=== PATIENT | female | born 1960 | race African-American/Black ===

== ENCOUNTER 2019-10-19 17:17 | Emergency (ER) | payer MEDICARE, OTHER, SELFPAY ==
[2019-10-19] VITALS (9 sets, daily range): BP systolic 115–138; BP diastolic 65–73; PULSE 77–87; RESP 16–25; TEMP 36.2; O2SAT 94–100
--- NOTE | ~2019-10-19 | CT_ITS ---
EXAMINATION: CTA chest PE protocol DATE: 10/19/2019 19:39 INDICATION: Shortness of breath. Chest pain, generalized. Cough. TECHNIQUE: Computed tomography angiography (CTA) of the chest was performed with 100 mL Omnipaque-350 intravenous contrast timed to evaluate the pulmonary arteries. Coronal maximum intensity projection 3D-reconstructions were created by the technologist. Automated exposure control and iterative reconst ruction technique were employed. Exam dose: 876.71 mGy-cm total exam DLP. COMPARISON: 10/19/2019 portable AP chest FINDINGS: There is diagnostic contrast enhancement of the pulmonary arteries and no evidence of pulmo nary embolism. There are calcified left hilar and subcarinal lymph nodes as well as calcified left lower lobe pulmon carlos granuloma, in addition to calcified hepatic and splenic granulomas, consistent with old granuloma tous disease. No hilar or mediastinal mass lesion or lymphadenopathy. No thoracic aortic aneurysm or dissection. There is dependent atelectasis in both lower lobes. No pulmonary consolidation or suspicious pulmonar y mass lesion is evident. Status post cholecystectomy. Diverticulosis of the colon. Degenerative disease is noted in the lower cervical spine. No suspicious osteolytic or osteoblastic l esions are noted. IMPRESSION: No evidence of pulmonary embolism Old granulomatous disease Status post cholecystectomy Diverticulosis of the colon Reviewed, dictated and finalized at [facility]. Reviewed, dictated and finalized at location [facility].
--- NOTE | ~2019-10-19 | XR_ITS ---
XR chest 1V portable DATE: 10/19/2019 18:07 INDICATION: Diffuse chest pain. Cough, shortness of breath. Weakness. TECHNIQUE: Portable AP chest on 10/19/2019 at 1757 hours COMPARISON: 01/31/2017 two-view chest FINDINGS: Normal heart size. No hilar or mediastinal enlargement. No pulmonary infiltrate or consolid ation, pleural effusion or pulmonary vascular congestion or pneumothorax is detected. Included skelet al structures are unremarkable other than osteopenia. IMPRESSION: No active cardiopulmonary disease Reviewed, dictated and finalized at location [facility].
--- NOTE | 2019-10-19 17:34 | ECG_ITS ---
Measurements Intervals [place] Rate: 82 P: 32 DE: 149 QRS: -12 QRSD: 89 T: -2 QT: 371 QTc: 434 Interpretive Statements SINUS RHYTHM DELAYED PRECORDIAL R/S TRANSITION INFERIOR INFARCT, AGE INDETERMINATE ABNORMAL ECG Electronically Signed On 10-19-2019 19:37:12 CDT by Miguel Gilman D.O.
--- NOTE | 2019-10-19 17:56 | ED.CHESTPAIN ---
HPI - Chest Pain General Chief Complaint: Shortness of Breath/Dyspnea Stated Complaint: back pain, sent by PMD Time Seen by Provider: 10/19/19 17:48 History of Present Illness HPI narrative: Sudden onset of left sided pleuritic chest pain at about 1430 today. The pain is sharp. No raiation. Worse with taking a deep breath and associated with mild SOB. It feels like pleurisy. She has a h/o PE and ws sent in by PMD to rule this out. No cough, congestion, fever. Related Data Home Medications Medication Instructions Recorded Confirmed albuterol sulfate INHALATION 10/19/19 albuterol sulfate INHALATION 10/19/19 collagenase clostridium histo. TOPICAL 10/19/19 [Santyl] folic acid 10/19/19 furosemide 10/19/19 hydrocodone-acetaminophen 10/19/19 isosorbide mononitrate mg PO 10/19/19 levothyroxine 10/19/19 metformin mg 10/19/19 methotrexate (PF) [Rasuvo (PF)] SUBCUT 10/19/19 potassium chloride [Klor-Con M20] meq PO 10/19/19 prednisone 10/19/19 rivaroxaban [Xarelto] mg 10/19/19 rosuvastatin mg 10/19/19 triamcinolone acetonide TOPICAL 10/19/19 umeclidinium-vilanterol [Anoro INHALATION 10/19/19 Ellipta] verapamil mg PO 10/19/19 Allergies Allergy/AdvReac Type Severity Reaction Status Date / Time levofloxacin Allergy Severe LIGAMENT Verified 11/14/14 17:43 DAMAGE, AND TENDON DAMAGE simvastatin Allergy Intermediate Other Verified 12/07/17 22:52 ciprofloxacin Allergy Mild Unknown Verified 10/19/19 17:55 Review of Systems Review of Systems: All systems reviewed & are unremarkable except as noted in HPI and below Constitutional: Constitutional: Denies chills and Denies fever(s) Cardiovascular: Cardiovascular: Reports chest pain and Denies radiating jaw, neck or arm pain Respiratory: Respiratory: Denies chest congestion, Denies cough and Reports dyspnea Gastrointestinal: Gastrointestinal: Denies nausea and Denies vomiting Neurologic: Denies numbness and Denies weakness [facility] Past Medical History Medical History (Updated 10/19/19 @ 22:17 by Mateo Sloan MD) Diabetes Pleurisy Pulmonary embolism Pulmonary hypertension Rheumatoid arteritis Exam Const: General: no acute distress and alert Nutritional Appearance: obese Orientation/consciousness: patient oriented x3 HENMT: Head: normal to inspection Chest: Chest palpation & inspection: tenderness rib (right) Resp: Effort & Inspection: normal respiratory effort Auscultation: clear to auscultation bilaterally Cardio: Rate: regular rate Rhythm: regular rhythm GI: Inspection: non-distended Skin: General skin exam: normal color Neuro: General: patient oriented x3, moves all extremities and CN's II-XI intact bilaterally Speech: normal speech Extrem: General: edema bilateral (trace) Course Vital Signs Vital signs: Vital Signs Temperature 36.2 C L 10/19/19 17:30 Pulse Rate 85 10/19/19 17:30 Respiratory Rate 16 10/19/19 17:30 Blood Pressure 126/70 10/19/19 17:30 Pulse Oximetry 100 10/19/19 17:30 Temperature 36.2 C L 10/19/19 17:30 Pulse Rate 77 10/19/19 21:45 Respiratory Rate 18 10/19/19 21:45 Blood Pressure 118/65 10/19/19 21:45 Pulse Oximetry 95 10/19/19 21:45 MDM - Chest Pain Differential Diagnosis Differential diagnosis: Likely other (PE, pleurisy, pneumonia) Medical Records Data Attestation: I reviewed the patient's medical records. Lab Data Attestation: I reviewed the patient's lab results. Result diagrams: 10/19/19 17:53 10/19/19 17:53 Labs: Lab Results 10/19/19 10/19/19 10/19/19 Range/Units 17:53 17:53 17:53 WBC 8.2 (4.5-10.0) K/mm3 RBC 4.41 (4.2-5.4) M/mm3 Hgb 12.7 (12.0-15.0) g/dL Hct 38.8 (37.0-47.0) % MCV 88.0 (80-100) fl MCH 28.8 (26-34) pg MCHC 32.7 (32-36) g/dl RDW 13.0 (11.5-14.5) % Plt Count 311 (150-375) k/mm3 MPV 9.6 (7.4-10.4) fl Immature Gran % (Auto) 0.
[2019-10-19 18:07] LABS: Basophils Absolute Auto 0.1 K/mm3 (0.0-0.1); Basophils Percent Auto 0.6 % (0.2-1.2); Eosinophils Absolute Auto 0.1 K/mm3 (0-0.3); Eosinophils Percent Auto 0.6 % (0-4.4); Hematocrit 38.8 % (37.0-47.0); Hemoglobin 12.7 g/dL (12.0-15.0); Immature Granulocyte Absolute 0.04 K/mm3 (0.00-0.031); Immature Granulocyte Percent A 0.5 % (0-0.5); Lymphocytes Absolute Auto 2.56 K/mm3 (0.9-3.2); Lymphocytes Percent Auto 31.1 % (18.3-44.2); Mean Corpuscular HGB Conc 32.7 g/dl (32-36); Mean Corpuscular Hemoglobin 28.8 pg (26-34); Mean Platelet Volume 9.6 fl (7.4-10.4); Monocytes Absolute Auto 0.7 K/mm3 (0.1-0.6); Monocytes Percent Auto 8.1 % (2.6-8.5); Neutrophils Absolute Auto 4.9 K/mm3 (1.3-6.7); Neutrophils Percent Auto 59.1 % (45.5-73.1); Platelet Count Result 311 k/mm3 (150-375); Red Blood Count 4.41 M/mm3 (4.2-5.4); White Blood Count 8.2 K/mm3 (4.5-10.0)
[2019-10-19 18:15] LABS: INR 1.9; Prothrombin Time 21.1 Seconds (11.1-14.7)
[2019-10-19 18:16] LABS: Partial Thromboplastin Time 32.3 SECONDS (22.3-36.8)
--- NOTE | 2019-10-19 18:21 | PC.NURSE ---
Called lab to add on Trop Baseline and BNP
[2019-10-19 18:29] LABS: Alanine Aminotransferase 39 U/L (4-35); Albumin Level 3.9 g/dL (3.5-5.1); Alkaline Phosphatase 88 U/L (38-126); Anion Gap 6 mmol/L (8-16); Aspartate Amino Transferase 32 U/L (14-36); Bilirubin,Total 0.5 mg/dL (0.2-1.3); Blood Urea Nitrogen 12 mg/dL (7-17); Calcium 9.2 mg/dL (8.4-10.2); Carbon Dioxide 26 mmol/L (22-30); Chloride 103 mmol/L (98-107); Estimated CRCL calculation 91 ml/min; Estimated Glomerular Filt Rate > 60; Glucose 135 mg/dL (65-105); Potassium 4.1 mmol/L (3.4-5.0); Sodium 135 mmol/L (137-145)
[2019-10-19] MEDS: traMADol HCL 50 MG TABLET PO (18:39)
[2019-10-19 18:41] LABS: Add Urine Microscopic? NO; Appearance Urine Clear (Clear); Bilirubin Urine Negative (Negative); Blood Urine Negative (Negative); Color Urine Yellow (Yellow); Glucose Urine UA Negative (Negative); Ketones Urine Negative (Negative); Leukocyte Esterase Ur Negative LEU/UL (Negative); Nitrate Urine Negative (Negative); Protein Urine Negative (Negative); Specific Grav Ur 1.013 (1.001-1.035); Urobilinogen Urine Negative mg/dL (<2.0)
[2019-10-19 18:56] LABS: NT Pro B Type Natriuretic Pept 23 PG/ML (5-100); Troponin I < 0.012 ng/mL (0.000-0.034)
--- NOTE | 2019-10-19 19:21 | PC.NURSE ---
report received at this time. pt resting on stretcher with family member at bedside. pt VS stable, remains hooked up to monitor. call light in reach-encouraged to use. will continue to monitor pt for baseline status changes.
--- NOTE | 2019-10-19 19:44 | PC.NURSE ---
Per Fabiola in CT, pt IV infiltrated at the end of the CT. ABHILASH Seaman made was aware.
--- NOTE | 2019-10-19 21:11 | PC.NURSE ---
d/c paperwork discussed with pt at this time. this RN and MD Sloan at bedside to discuss results, poc, and tx. pt's daughter at bedside, both verbalize understanding. pt states she would like Dr. Collins contacted prior to discharge. MD aware, Dr. Collins paged. discharge pending.
== END 2019-10-19 21:46 | disposition home or self-care (01) ==
PROVIDERS: Emergency Medicine; Emergency Provider Emergency Medicine
DX: R07.81 Pleurodynia (principal); E11.9 Type 2 diabetes mellitus without complications; Z86.711 Personal history of pulmonary embolism; I27.20 Pulmonary hypertension, unspecified; K57.90 Diverticulosis of intestine, part unspecified, without perforation or abscess without bleeding; R06.02 Shortness of breath; Z79.84 Long term (current) use of oral hypoglycemic drugs
CPT/HCPCS: 36415; 71045; 71275; 80053; 81003; 83880; 84484; 85025; 85610; 85730; 93005; 99284; A9270; Q9967

== ENCOUNTER 2024-01-24 18:18 | Emergency (ER) | payer MEDICARE, OTHER, SELFPAY ==
--- NOTE | ~2024-01-24 | XR_ITS ---
XR ankle LT min 3V DATE: 01/24/2024 18:57 INDICATION: Lower left ankle. Left ankle and foot pain. TECHNIQUE: 3 views COMPARISON: None FINDINGS: Diffuse osteopenia. No fracture or dislocation of the ankle or disruption of the ankle mortise. There is osteoarthritic change at the talonavicular and tarsal joints. Mild plantar calcaneal and slight posterior calcaneal enthesopathy. IMPRESSION: No fracture or dislocation of the ankle Osteopenia Osteoarthritic changes Mild plantar and posterior calcaneal enthesopathy Reviewed, dictated and finalized at location A. GORY DEVELOPMENT MANAGER
--- NOTE | ~2024-01-24 | XR_ITS ---
XR foot LT min 3V DATE: 01/24/2024 18:56 INDICATION: Injury this morning. Left ankle and foot pain TECHNIQUE: 4 views COMPARISON: None FINDINGS: Osteopenia. Mild plantar and slight posterior calcaneal enthesopathy. There is osteoarthritis including prominent osteoarthritic change at the talonavicular and calcaneocu boid joints. No fracture, dislocation, periosteal reaction or bone destruction is detected. IMPRESSION: No fracture or dislocation is detected Osteopenia Minimal plantar and posterior calcaneal enthesopathy Polyarticular osteoarthritis, particularly prominent at the talonavicular and calcaneocuboid joints Reviewed, dictated and finalized at location A. TER OPERATOR IMPRESSION: No fracture or dislocation is detected Osteopenia Minimal plantar and posterior calcaneal enthesopathy Polyarticular osteoarthritis, particularly prominent at the talonavicular and c alcaneocuboid joints
--- NOTE | 2024-01-24 18:24 | ED.LOWEXIN ---
HPI - Extremity Injury (Lower) General Chief Complaint: Extremity Injury, Lower Stated Complaint: Left Foot Pain Time Seen by Provider: 01/24/24 18:37 Source: patient, RN notes reviewed and old records reviewed Mode of arrival: ambulatory Limitations: no limitations History of Present Illness HPI Narrative: 63-year-old presents to the [facility] with complaints of left foot and ankle pain. Patient reports that she was walking at a store when she rolled her foot. Did not hit her head. No loss of consciousness. Pain to the generalized ankle as well as lateral foot No bruising or swelling noted at this time. Positive pedal pulses Related Data Home Medications Medication Instructions Recorded Confirmed albuterol sulfate 90 mcg/actuation inhalation 10/19/19 aerosol inhaler collagenase clostridium histo. 250 topical 10/19/19 unit/gram topical ointment (Santyl) folic acid 1 mg tablet 10/19/19 furosemide 40 mg tablet 10/19/19 hydrocodone 5 mg-acetaminophen 325 10/19/19 mg tablet isosorbide mononitrate 60 mg mg PO 10/19/19 tablet,extended release 24 hr levothyroxine 88 mcg tablet 10/19/19 metformin 500 mg tablet mg 10/19/19 methotrexate (PF) 7.5 mg/0.15 mL subcut 10/19/19 subcutaneous auto-injector (Rasuvo (PF)) potassium chloride 20 mEq meq PO 10/19/19 tablet,extended release(part/cryst) (Klor-Con M) rivaroxaban 20 mg tablet (Xarelto) mg 10/19/19 rosuvastatin 10 mg tablet mg 10/19/19 triamcinolone acetonide 0.1 % topical 10/19/19 topical ointment umeclidinium 62.5 mcg-vilanterol inhalation 10/19/19 25 mcg/actuation powdr for inhalation (Anoro Ellipta) verapamil 240 mg tablet,extended mg PO 10/19/19 release spironolactone 25 mg tablet mg 01/24/24 vibegron 75 mg tablet (Gemtesa) mg 01/24/24 Allergies Allergy/AdvReac Type Severity Reaction Status Date / Time levofloxacin Allergy Severe LIGAMENT Verified 01/24/24 18:23 DAMAGE, AND TENDON DAMAGE simvastatin Allergy Intermediate Other Verified 01/24/24 18:23 ciprofloxacin Allergy Mild Unknown Verified 01/24/24 18:23 Review of Systems Review of Systems: All systems reviewed & are unremarkable except as noted in HPI and below Constitutional: Constitutional: Reports no additional constitutional complaints ENT: Reports system reviewed and no additional complaints, except as documented Cardiovascular: Cardiovascular: Reports no additional cardiovascular complaints, Denies chest pain and Denies dyspnea Respiratory: Respiratory: Reports no additional respiratory complaints, Denies chest congestion, Denies cough and Denies dyspnea Gastrointestinal: Gastrointestinal: Reports no additional gastrointestinal complaints, Denies abdominal pain, Denies nausea and Denies vomiting Musculoskeletal: Musculoskeletal: Reports as per HPI and Reports arthralgias Integumentary/Breasts: Skin/Breast: Reports system reviewed and no additional complaints, except as docu [facility] Past Medical History Medical History Diabetes Pleurisy Pulmonary embolism Pulmonary hypertension Rheumatoid arteritis Comments At the time of my signature, I reviewed and agree with the nursing past medical, surgical, social, and family history. There is no relevant family history pertinent to the patient complaint. Exam Const: General: cooperative, healthy appearing, comfortable, no acute distress, well developed, alert and well nourished Nutritional Appearance: well nourished Orientation/consciousness: patient oriented x3 Limitations: no limitations HENMT: Head: normal to inspection Ears: hearing grossly normal bilaterally and external ears normal Face/Nose/Sinus: Normal external nose present, normal facial exam and face symmetric Face and sinus: normal facial exam and face symmetric Eyes: General: appearance normal, both eyes and all related structures Alignment and Position: alignment normal Periorbital: periorbital findings normal Neck: Neck: normal visual inspection, full ROM, no lymphadenopathy and no meningeal signs Chest: Chest palpation & inspection: normal inspection of the chest Resp: Effort & Inspection: normal respiratory effort and able to speak in complete sentences Cardio: Rate: regular rate Skin: General skin exam: normal color and no rashes or lesions noted Lesions: no lesions Rashes: no rashes Wounds: no wounds Neuro: General: patient oriented x3, tone normal, moves all extremities and no meningeal signs Cognition (Neuro): normal cognition Speech: normal speech Gait exam (Neuro): Other gait observations present (Limp favoring left leg) Extrem: General: normal to inspection, full ROM, capillary refill normal and normal gait Left lower extremity: ankle Details: tenderness (Generalized ankle); no swelling and foot Details: normal capillary refill, tenderness (Lateral foot) and vascular exam Details: dorsalis pedis pulse present Psych: Appearance: grossly normal and well kempt Mental Status: mental status grossly normal Speech and movement: Normal speech and movement present and Clear speech present Affect: normal affect Attitude: cooperative Course Course Level of Care: Express Care Visit Vital Signs Vital signs: Vital Signs Temperature 96 F L 01/24/24 18:31 Pulse Rate 109 H 01/24/24 18:31 Respiratory Rate 20 01/24/24 18:31 Blood Pressure 159/89 H 01/24/24 18:31 Pulse Oximetry 97 01/24/24 18:31 Oxygen Delivery Room Air 01/24/24 18:31 Temperature 96 F L 01/24/24 18:31 Pulse Rate 109 H 01/24/24 18:31 Respiratory Rate 20 01/24/24 18:31 Blood Pressure 159/89 H 01/24/24 18:31 Pulse Oximetry 97 01/24/24 18:31 Oxygen Delivery Room Air 01/24/24 18:31 Reviewed MDM - Extremity Injury (Lower) MDM Narrative Medical decision making narrative: Patient sitting comfortably in exam room. Nontoxic, vitals stable. Patient in no acute distress. Patient presents with left ankle and foot pain. X-rays are negative for fracture. Patient replied Patient appropriate for outpatient treatment and follow-up Discharge instructions reviewed with patient, as well as provided in writing per nursing staff. The instructions also include specific and strict return/GO TO THE ER as well as f/u information. All questions have been answered, and the patient deny any further questions with discharge and discharge plan. Some parts of this dictation were generated by voice recognition software and may contain typographical and/or grammatical inaccuracies. Differential Diagnosis Differential diagnosis: Likely ankle sprain and strain and ankle fracture Imaging Data Radiologist's impression: XR ankle LT min 3V DATE: 01/24/2024 18:57 INDICATION: Lower left ankle. Left ankle and foot pain. TECHNIQUE: 3 views COMPARISON: None FINDINGS: Diffuse osteopenia. No fracture or dislocation of the ankle or disruption of the ankle mortise. There is osteoarthritic change at the talonavicular and tarsal joints. Mild plantar calcaneal and slight posterior calcaneal enthesopathy. IMPRESSION: No fracture or dislocation of the ankle Osteopenia Osteoarthritic changes Mild plantar and posterior calcaneal enthesopathy XR foot LT min 3V DATE: 01/24/2024 18:56 INDICATION: Injury this morning. Left ankle and foot pain TECHNIQUE: 4 views COMPARISON: None FINDINGS: Osteopenia. Mild plantar and slight posterior calcaneal enthesopathy. There is osteoarthritis including prominent osteoarthritic change at the talonavicular and calcaneocuboid joints. No fracture, dislocation, periosteal reaction or bone destruction is detected. IMPRESSION: No fracture or dislocation is detected Osteopenia Minimal plantar and posterior calcaneal enthesopathy Polyarticular osteoarthritis, particularly prominent at the talonavicular and calcaneocuboid joints Critical Care Time Critical Care Time Critical Care Time: No Discharge Plan Discharge Clinical Impression: Ankle sprain and strain, Foot sprain, Polyarticular osteoarthritis Patient Disposition: Home, Self-Care Condition: Stable Instructions: Antibiotic Form, Ankle Sprain (ED), Foot Sprain (ED), Arthritis (ED) Additional Instructions: Your Xray did not show a fracture. Wear good supportive shoes at all times. Ice should be applied to help reduce swelling. It can be used for 20 to 30 minutes, every 2-3 hours while awake. Do not apply ice directly to your skin. ankle braces or gloria-wraps will help support your injured ankle. Take Tylenol 650mg every 6-8 hours as needed for pain. Do not take with hydrocodone Please schedule a follow-up visit with your personal physician for further evaluation and treatment within 2 weeks especially if symptoms persist. For new or worsening symptoms go directly to the emergency room Patient Language: Brazilian Prescriptions: No Action spironolactone 25 mg tablet Gemtesa 75 mg tablet furosemide 40 mg tablet metformin 500 mg tablet hydrocodone-acetaminophen 5-325 mg tablet isosorbide mononitrate 60 mg tablet extended release 24 hr PO levothyroxine 88 mcg tablet potassium chloride [Klor-Con M20] 20 mEq tablet,ER particles/crystals PO triamcinolone acetonide 0.1 % ointment TOPICAL verapamil 240 mg tablet extended release PO folic acid 1 mg tablet Santyl 250 unit/gram ointment TOPICAL albuterol sulfate 90 mcg/actuation HFA aerosol inhaler INHALATION rosuvastatin 10 mg tablet Xarelto 20 mg tablet Anoro Ellipta 62.5-25 mcg/actuation blister with device INHALATION Rasuvo (PF) 7.5 mg/0.15 mL auto-injector SUBCUT tramadol 50 mg tablet 50 mg PO Q4H PRN (Reason: pain) Qty: 15 0RF Follow-up/Referrals: [facility] [Non-Staff] - 1 Week ([facility] care follow up ) Time of Disposition: 19:14
[2024-01-24 18:31] VITALS: BP 159/89; PULSE 109; RESP 20; TEMP 35.5; O2SAT 97
== END 2024-01-24 19:26 | disposition home or self-care (01) ==
PROVIDERS: Emergency Provider Nurse Practitioner
DX: S93.402A Sprain of unspecified ligament of left ankle, initial encounter (principal); S96.912A Strain of unspecified muscle and tendon at ankle and foot level, left foot, initial encounter; X50.9XXA Other and unspecified overexertion or strenuous movements or postures, initial encounter; S93.602A Unspecified sprain of left foot, initial encounter; M19.072 Primary osteoarthritis, left ankle and foot; E11.9 Type 2 diabetes mellitus without complications; I27.20 Pulmonary hypertension, unspecified; Z86.711 Personal history of pulmonary embolism
CPT/HCPCS: 73610; 73630; 99213; G0463

== ENCOUNTER 2024-04-24 19:12 | Emergency (ER) | payer MEDICARE, OTHER, SELFPAY ==
--- NOTE | ~2024-04-24 | CT_ITS ---
EXAMINATION: CT abdomen pelvis w con DATE: 04/24/2024 20:51 INDICATION: LUQ pain x1.5 wk TECHNIQUE: Computed tomography (CT) of the abdomen and pelvis was performed with intravenous contrast . Automated exposure control and iterative reconstruction technique were employed. The dose-length pr oduct was 1391.71 mGy-cm. COMPARISON: None. FINDINGS: Lower thorax: Ill-defined groundglass nodules and foci in the left lower lung. Mild bibasilar scar/at electasis. Calcified left hilar lymph node. Liver: Diffuse fatty infiltration. Granulomatous calcifications. Biliary/Gallbladder: Gallbladder is absent. No bile duct dilation. Pancreas: Lobular contour abnormality projecting off the posterior aspect of the uncinate process steve suring 1.5 x 2.7 cm, with a punctate associated calcification. 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 Spleen: Granulomatous calcifications. Adrenals:No mass. Kidneys: No suspicious mass, obstructing stone, or hydronephrosis. Focal cortical scar in the superio r right kidney. GI tract: Distal esophageal and antral wall edema. No small or large bowel dilation. Normal appendix. Diverticulosis without diverticulitis. Mesentery/Peritoneum: No ascites, mass, or free air. Retroperitoneum: No mass. Pelvis: Distended urinary bladder with mild wall thickening. Left superolateral ureterocele. Calcifie d and noncalcified uterine fibroids. Normal bilateral ovaries. Soft Tissues: Small fat-containing uncomplicated umbilical hernia. Bones: No acute osseous finding. IMPRESSION: Ill-defined, subtle groundglass opacities in the lingula and left lower lobe, may reflect mild hypers ensitivity pneumonitis, respiratory bronchiolitis, or infectious airways disease. Esophagitis and antral gastritis. Hepatic steatosis. Contour abnormality with calcification along the uncinate process of the pancreas, may represent a pa ncreatic lesion, adjacent lymph node, or a lobule of normal pancreatic tissue. Recommend nonemergent but timely MRI of the abdomen without and with contrast for further evaluation. 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 Bladder wall thickening despite adequate distention, as can be seen with cystitis. Reviewed, dictated and finalized at location K. IMPRESSION: Ill-defined, subtle groundglass opacities in the lingula and left lower lobe, m ay reflect mild hypersensitivity pneumonitis, respiratory bronchiolitis, or inf ectious airways disease. Esophagitis and antral gastritis. Hepatic steatosis. Contour abnormality with calcification along the uncinate process of the pancre as, may represent a pancreatic lesion, adjacent lymph node, or a lobule of norm al pancreatic tissue. Recommend nonemergent but timely MRI of the abdomen witho ut and with contrast for further evaluation. 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 Bladder wall thickening despite adequate distention, as can be seen with cystit is.
--- NOTE | 2024-04-24 19:17 | ECG_ITS ---
Test Date: 2024-04-24 19:52:47 Measurements Intervals [place] Rate: 79 P: 41 NC: 161 QRS: -16 QRSD: 89 T: 8 QT: 392 QTc: 450 Interpretive Statements SINUS RHYTHM No previous ECG available for comparison Electronically Signed On 04-25-2024 11:25:00 CDT by Jagdeep Meadows M.D.
[2024-04-24 19:19] VITALS: BP 129/87; PULSE 85; RESP 18; O2SAT 98
[2024-04-24 19:20] VITALS: BP 129/87; PULSE 86; RESP 18; O2SAT 97
--- OUTSIDE RECORDS SUMMARY | 2024-04-24 19:38 | XMS_ITS | Encounter Summary ---
Author Organization [facility] Address [address] [place] [address] Care Team Providers Care Retail And Restaurant Associate Name Role Phone Marcos Banks MD Unavailable [phone] Chucky Menendez MD Unavailable Nathalie Guzman MD, Wade Lopes Unavailable [phone] Danielle Reina MD Unavailable [phone] Mercedes Collins MD Primary Care Provider [phone] Mercedes Collins MD Unavailable [phone] Carlota Hyman SLITTER AND CUTTER OPERATOR-ROAD CONDUCTOR Unavailable [phone] Mercedes Collins MD Unavailable Ladan Acosta RN Unavailable Ramsey Barbosa MD Unavailable Mercedes Collins MD Unavailable [phone] Stacey Michelle Unavailable Reason for Visit * Reason Onset Date Comments Pain Pelvic 12/17/2020 Encounter Details Date Type Department Care Team (Late st Contact Info) Description 12/17/2020 Telephone [facility] [address] [place] [address] Dominick Dodson MD [address] [place] [address] Pain Pelvic Social History Tobacco Use Types Packs/Day Years Used Date Smoking Tobacco: Former Smokeless Tobacco: Never Comments:Quit 30 years ago Alcohol Use Standard Drinks/Week Comments Not Currently 0 (1 standard drink = 0.6 oz pur e alcohol) Sex and Gender Information Value Date Recorded Sex Assigned at Not on file Gender Identity Not on file Sexual Orientation Not on file documented as of this encounter Functional Status Functional Status Response Date of Assess ment Is person deaf or have serious hearing difficult y? No 07/16/2020 Is person blind or have serious difficulty seein g? No 07/16/2020 Does person have serious dif ficulty walking/climbing stairs? No 07/16/2020 Does person have difficulty dressing/bathing? No 07/16/2020 Does person have difficulty doing errands alone? No 07/16/2020 Cognitive Status Response Date of Assessm ent Does person have difficulty concentrating/remembering/making decisions? No 07/16/2020 documented as of this encounter Miscellaneous Notes * Telephone Encounter - Zeferino Henry RN - 12/17/2020 2:55 PM CDT Has had pelvic pain since she left the office after last office visit. Having pelvic pain off and on, but Thursday pain elevated and became constant. Saw PCP doctor on Thursday, 12/15. Lab work done. UA w/ reflex to cx showed no cx indicated. PCP, Dr Collins called w/ elevated creatinine. Advised pt to call us. Advised: the best thing would be to come in and get assessed and evaluated. Can be seen tomorrow. She agrees to 345pm appt tomorrow at [facility]'s office. Directions given over the phone, but will send mychart msg. * Telephone Encounter - Radha Burden - 12/17/2020 2:37 PM CDT Patient called in- having severe pelvic pain- Thursday was unbearable- today is pretty bad 10/26 especially when voiding- Was given samples and wonders if this is the cause- Please call [phone] documented in this encounter Plan of Treatment Upcoming Encounters Date Type Department Care Team (Late st Contact Info) Description 06/07/2024 1:20 PM CDT Office Visit [facility] - Internal Medicine [address] [place] [address] Mercedes Collins MD [address] [place] [phone] 12/01/2024 11:45 AM CDT Office Visit [facility] - HOOF AND SHOE INSPECTOR [address] [place] [phone] Peterson Nance MD [address] [place] [address] documented as of this encounter Visit Diagnoses Not on filedocumented in this encounter Additional Health Concerns Infection Onset Date Last Indicated Resolved Time COVID-19 Under Investigation 01/21/2023 01/21/2023 01/21/2023 6:24 PM RETAIL 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 CONTROL CLERK documented as of this encounter Care Teams Retail And Restaurant Associate Relationship Specialty Start Date End Date Mercedes Collins MD [address] [place] [phone] PCP - General Internal Medicine 05/17/19 Mercedes Collins MD [address] [place] [phone] PCP - Attributed-MSSP 10/17/20 04/15/21 Carlota Hyman, SLITTER AND CUTTER OPERATOR-ROAD CONDUCTOR [address] [place] [address] [address] [place] [phone] PCP - Attributed-MSSP 04/16/21 06/15/21 [place] [address] [place] [address] [address] [place] [phone] PCP - Attributed-MSSP 06/16/21 08/11/23 Mercedes Collins MD [address] [place] [address] [address] [place] [phone] PCP - Attributed-Coventry MA 02/16/23 Marcos Banks MD [address] [facility] [address] [place], [place] [id number] Cardiology 09/29/13 10/28/22 Chucky Menendez MD [address] [place] [address] [address] [place] [address] Business Process Representative Pulmonary Disease 09/20/15 Wade Zelaya Jr., MD [address] [place] [address] [address] [place] [address] Rheumatology 12/01/16 Danielle Reina MD [address] [place] [address], [phone] Orthopedic Surgery 12/01/16 Ladan Acosta, ABHILASH Magnetic TesterMed Peds 07/23/22 08/14/22 Ramsey Barbosa MD [address] [facility] [address] [place] [address] Internal Medicine 10/29/22 Stacey Michelle [address] [id number] Care Coordination Specialist Care Management 09/29/23 11/13/23 documented as of this encounter
--- OUTSIDE RECORDS SUMMARY | 2024-04-24 19:38 | XMS_ITS | Encounter Summary ---
Author Organization [facility] Healthcare Address [address] [place] [address] Care Team Providers Care Glassware Finisher Name Role Phone Mercedes Collins MD Primary Care Provider + Andrzej Grimes OD Unavailable [phone] Ramsey Barbosa MD Unavailable [phone] Juana Leal RN Unavailable [phone] Encounter Details Date Type Department Care Team (Late st Contact Info) Description 04/20/2024 Orders Only [facility] [address] [facility] [address] [place] [phone] Caryn Ruiz, RN Social History Tobacco Use Types Packs/Day Years Used Date Smoking Tobacco: Former Smokeless Tobacco: Never Alcohol Use Standard Drinks/Week Comments No 0 (1 standard drink = 0.6 oz pur e alcohol) Hunger Vital Sign Answer Date Recorded Within the past 12 months, y ou worried that your food would run out before you got the money to buy more. Never true 04/14/19 25 Within the past 12 months, t he food you bought just didn't last and you didn't have money to get more. Never true 04/14/2024 Personal Safety Answer Date Recorded Have you ever been in or are you currently in a harmful physical or emotional relationship or is someone making you feel afraid or unsafe? 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 Gender Identity Not on file Sexual Orientation Not on file documented as of this encounter Plan of Treatment Not on file documented as of this encounter Visit Diagnoses Not on filedocumented in this encounter Care Teams Glassware Finisher Relationship Specialty Start Date End Date Mercedes Collins MD [address] [facility] [address] [place] [address] PCP - General 06/25/17 Andrzej Grimes, OD [address] [place] [address] Referring Physician Ophthalmology 04/18/20 Ramsey Barbosa MD [address] [place] [address] Draw Off Worker Transplant 05/30/21 Juana Leal, RN [address] [facility] [address] [place] [address] Heart Failure Coordinator Coremaker Pipe 05/30/21 documented as of this encounter
--- OUTSIDE RECORDS SUMMARY | 2024-04-24 19:38 | XMS_ITS | Clinical Summary ---
Author Organization [facility] Address [address] [place] [address] Care Team Providers Care Morning Nanny Name Role Phone Unavailable Primary Care Provider Unavailabl e Social History Tobacco Use Types Packs/Day Years Used Date Smoking Tobacco: Never Assessed Comments Unknown Sex and Gender Information Value Date Recorded Sex Assigned at Not on file Legal Sex Female 4:16 PM CDT Gender Identity Not on file Sexual Orientation Not on file Plan of Treatment Health Maintenance Due Date Last Done Comments Cervical Cancer Screening Pa p Smear (Age 30 to 64) Every 3 Years 1961 Colorectal Cancer Screening Colonoscopy (10 Years) 1961 Annual Physical 1964 Hepatitis C 09/15/1979 DTaP, Tdap and Td Vaccines ( 1 - Tdap) 1980 Cervical Cancer Screening Pa p with HPV Testing (Age 30 to 64) Every 5 Years 09/15/1991 Cervical Cancer Screening with HPV 09/15/1991 Mammogram Screening 2001 Zoster Vaccines (1 of 2) 09/15/2011 COVID-19 Vaccine (2023-2 5 season) 2023 Influenza Adult (#1) 2023 RSV Immunization or 60+ Years (1 - 1-dose 75+ series) 2036 Meningococcal B Vaccine Aged Out No l onger eligible based on patient's age to complete this topic Meningococcal Vaccine Aged Out No annamarie italo eligible based on patient's age to complete this topic Pneumococcal Vaccine: Pediat rics (0 to 5 Years) and At-Risk Patients (6 to 64 Years) Aged Out No longer eligible b ased on patient's age to complete this topic RSV Immunizations Under 20 Months Aged Out No longer eligible based on patient's age to complete this topic
--- OUTSIDE RECORDS SUMMARY | 2024-04-24 19:38 | XMS_ITS | Encounter Summary ---
Author Organization [facility] Address [address] [facility] [place] [address] Care Team Providers Care Lift Team Technician Name Role Phone José Ashton MD Primary Care Provider [phone] Marcos Banks MD Unavailable [phone] Krish Woodard MD Unavailable Unavailable Chucky Menendez MD Unavailable [phone] Agata Castro MD Primary Care Provider [phone] Agata Castro MD Unavailable [phone] Mercedes Collins MD Primary Care Provider [phone] Nathalie Guzman MD, Richard D Unavailable +[phone] Danielle Reina MD Unavailable + [phone] Mercedes Collins MD Unavailable [phone] Mercedes Collins MD Primary Care Provider [phone] Carlota Hyman CONTROL TOWER RADIO OPERATOR-CLINIC BUSINESS MANAGER Unavailable [phone] Mercedes Collins MD Unavailable [phone] Carlota Hyman CONTROL TOWER RADIO OPERATOR-CLINIC BUSINESS MANAGER Unavailable [phone] Mercedes Collins MD Unavailable [phone] Ladan Acosta RN Unavailable Ramsey Barbosa MD Unavailable [phone] Mercedes Collins MD Unavailable [phone] JarrettjessieStacey colin Unavailable Krish Woodard MD Unavailable Unavailable Encounter Details Date Type Department Care Team ([facility] Contact Info) Description 02/04/2013 [facility] Outpatient Visit EXTERNAL NON-SS DEPT Marcos Banks MD [facility] [address] [place] [address] Social History Tobacco Use Types Packs/Day Years Used Date Smoking Tobacco: Former Smokeless Tobacco: Former Comments:quit 22 yr's ago Alcohol Use Standard Drinks/Week Comments No 0 (1 standard drink = 0.6 oz pur e alcohol) Sex and Gender Information Value Date Recorded Sex Assigned at Not on file Gender Identity Not on file Sexual Orientation Not on file documented as of this encounter Plan of Treatment Upcoming Encounters Date Type Department Care Team (Late Contact Info) Description 06/07/2024 1:20 PM CDT Office Visit [facility] - Internal Medicine [address] [place] [address] [address] [place] [phone] Mercedes Collins MD [address] [place] [address] [address] [place] [phone] 12/01/2024 11:45 AM CDT Office Visit [facility] - EMPLOYEE COMMUNICATIONS MANAGER [address] [place] [address] [address] [place] [phone] Peterson Nance MD [address] [place] [id number] documented as of this encounter Visit Diagnoses Not on filedocumented in this encounter Additional Health Concerns Infection Onset Date Last Indicated Resolved Time COVID-19 Under Investigation 06/18/2020 06/18/2020 06/19/2020 6:11 AM CDT COVID-19 Confirmed 06/18/2020 06/18/2020 4:33 AM CDT COVID-19 Under Investigation 07/15/2020 07/15/2020 07/15/2020 6:50 AM CDT COVID-19 Under Investigation 01/21/2023 01/21/2023 01/21/2023 6:24 PM CREDIT VERIFIER documented as of this encounter Care Teams Lift Team Technician Relationship Specialty Start Date End Date José Ashton MD [address] [facility] [address] [place] [phone] PCP - General 09/11/10 03/27/13 [place] [address] [place] [address] [address] [place], [place] [id number] PCP - General Family Medicine 09/17/16 11/30/16 Mercedes Collins MD [address] [place] [address] [address] [place] [address] PCP - General Internal Medicine 12/01/16 05/16/19 Mercedes Collins MD [address] [place] [address] [address] [place] [address] PCP - Attributed-MSSP 07/17/18 09/15/20 Mercedes Collins MD [address] [place], [place] [address] [address] [place] [address] PCP - General Internal Medicine 05/17/19 Carlota Hyman, CONTROL TOWER RADIO OPERATOR-CLINIC BUSINESS MANAGER [address] [facility] [address] [place] [phone] PCP - Attributed-MSSP 09/16/20 10/16/20 Mercedes Collins MD [address] [place] [address] PCP - Attributed-MSSP 10/17/20 04/15/21 Carlota Hyman, CONTROL TOWER RADIO OPERATOR-CLINIC BUSINESS MANAGER [address] [place] [phone] PCP - Attributed-MSSP 04/16/21 06/15/21 Mercedes Collins MD [address] [place] [address] PCP - Attributed-MSSP 06/16/21 08/11/23 Mercedes Collins MD [address] [place] [address] PCP - Attributed-Coventry MA 02/16/23 Krish Woodard MD PCP - Attributed-MSSP 04/16/18 07/16/18 Marcos Banks MD [address] [place] [address] Cardiology 09/29/13 10/28/22 Krish Woodard MD [address] [place] [place] [address] Pulmonary Disease 09/29/13 09/19/15 Chucky Menendez MD [address] [place] [address] [address] [place], [place] [phone] [employer] Media Specialist Pulmonary Disease 09/20/15 Agata Castro MD [address] [place] [address] [address] [place], [place] [phone] Referring Physician Family Medicine 09/17/16 11/09/18 Wade Zelaya Jr., MD [address] [facility] [address] [place] [address] Rheumatology 12/01/16 Danielle Reina MD [address] [facility], [address] Orthopedic Surgery 12/01/16 Ladan Acosta, ABHILASH Coil Winding SupervisorManager Dental 07/23/22 08/14/22 Ramsey Barbosa MD [address] [facility] [address] [place] [address] Internal Medicine 10/29/22 Stacey Michelle [address] [facility] [address] [place] [address] Care Coordination Specialist Care Management 09/29/23 11/13/23 documented as of this encounter
--- OUTSIDE RECORDS SUMMARY | 2024-04-24 19:38 | XMS_ITS | Referral Summary ---
Author Organization [facility] Address [address] [facility] [address] [facility] [place] [address] Care Team Providers Care Assistant Quality Manager Name Role Phone Chucky Menendez MD Unavailable [phone] Nathalie Guzman MD, Wade Lopes Unavailable [phone] Danielle Reina MD Unavailable [phone] Mercedes Collins MD Primary Care Provider [phone] Ramsey Barbosa MD Unavailable Mercedes Collins MD Unavailable [phone] Source Comments [facility],non-owned Affiliates and Associated Physician Practices is amultiple site organization consisting of ambulatory clinics and hospital sitesin [place], [place], [place]. This disclosure is being madepursuant to the Care Everywhere program and may not contain all information available regarding this patient. Last updated 17.[facility] Encounters Date Type Department Care Team Description 04/15/2024 Telephone [facility] - Internal Medicine [address] [place] [phone] Mercedes Collins MD Appointment; Reminder Call; Pain Abdominal 04/14/2024 Telephone [facility] - Internal Medicine [address] [place] [phone] Mercedes Collins MD Update 03/24/2024 Refill [facility] Internal Medicine [address] [place] [phone] Mercedes Collins MD MEDICATION REFILL 03/08/2024 Refill [facility] Internal Medicine [address] [place] [phone] Mercedes Collins MD Refill Request 02/15/[address] [phone] Mercedes Collins MD Refill Request 02/05/2024 Refill [facility] Medicine [address] [place] [phone] Mercedes Collins MD MEDICATION REFILL 02/03/2024 1:00 PM HEAD OF PRODUCT Office Visit [facility] Internal Medicine [address] [place] [phone] Mercedes Collins MD Type 2 diabetes mellitus with diabetic neuropathy, without long-term current use of insulin (HCC) (Primary Dx); Rheumatoid arthritis involving multiple sites with positive rheumatoid factor ([facility]); Rheumatoid arthritis involving multiple sites, unspecified whether rheumatoid factor present (HCC); Left foot pain; Postablative hypothyroidism; Mixed hyperlipidemia; Diabetes mellitus type 2 without retinopathy ([facility]); Primary hypertension; Chronic diastolic heart failure ([facility]); Restrictive lung disease; BIJAN (obstructive sleep apnea); Chronic obstructive pulmonary disease, unspecified COPD type (HCC) 02/02/2024 Refill [facility] Internal Medicine [address] [place] [phone] Mercedes Collins MD Refill Request 01/26/2024 Refill [facility] Internal Medicine [address] [place] [phone] Mercedes Collins MD Refill Request from Last 3 Months Allergies Active Allergy Reactions Criticality Noted Date Comments Ciprofloxacin Hydrochloride Urticaria,Diarrhea 09/10/2009 Ciprofloxacin Rash,Urticaria,Unkno wn High 12/23/2012 Hmg-Coa-R Inhibitors Myalgias,Unknown Medium 5 Leflunomide GI Discomfort High 12/11/2015 Levofloxacin Unknown High 06/24/2010 Ruptured Ligaments Simvastatin Other,Unknown Low 01/25/2016 Bone pain Bone pain Bone pain Medications * Be aware that medications may not be up to date on this document. Alwaysverify current medications with the patient. Medication Sig Dispensed Refills Start Date End Date Status calcium-vitamin D (OS-SHANNON 250 PLUS D 125 UNITS) 250-125 MG-UNIT tablet Take 1 (one) tablet by mouth daily with food Active folic acid (FOLVITE) 1 MG tablet Take 1 (one) tablet by mouth 2 times daily 1 07/08/2016 Active fexofenadine (THERESE) 180 MG tablet Take 1 (one) tablet by mouth once daily as needed Active lancets Use 1 Each once daily Delica 100 Each 3 03/04/2017 Active prednisoLONE acetate (PRED FORTE) 1 % ophthalmic suspension Instill 1 (one) drop into both eyes as needed 01/14/2018 Active albuterol (PROVENTIL;VENTOLIN ) (2.5 MG/3ML) 0.083% nebulizer solution Inhale 2.5 (two and one-half) mg by mouth every 6 hours as needed for Shortness of Breath or Wheezing 120 vial 5 06/29/2020 Active spironolactone (ALDACTONE) 25 MG tablet 0.5 (one-half) tablet 10/29/2020 Active gabapentin (NEURONTIN) 300 MG capsule Take 1 (one) capsule by mouth nightly as needed (pain) 30 capsule 02/01/2021 Active verapamil CR (ISOPTIN-SR) 180 MG tablet Take 2 (two) tablets by mouth once daily 08/14/2021 Active ammonium lactate (Lac-Hydrin) 12 % creamIndications:Xe rosis Cutis Apply to the feet and toenails at least once a day. Do not apply between the toes. Reasons: Abnormal Dryness of Skin 385 g 5 12/10/2021 Active inFLIXimab (Remicade) injection 1,100 (one thousand one hundred) mg by Intravenous route Active Multiple Vitamins-Minerals (Super Thera Maria Luz M) TABS Take 1 (one) tablet by mouth once daily Active albuterol (Proventil;Ventolin ) (2.5 MG/3ML) 0.083% nebulizer solution Inhale 2.5 (two and one-half) mg by mouth every 4 hours as needed for Shortness of Breath 360 mL 5 07/01/2022 Active Methotrexate, PF, (Rasuvo) 7.5 MG/0.15ML Inject 7.5 mg subcutaneously every 7 days 07/11/2022 Active benzonatate (Tessalon) 200 MG capsule Take 1 (one) capsule by mouth 3 times daily as needed for Cough 30 capsule 1 01/13/2023 Active busPIRone (Buspar) 5 MG tablet TAKE 1 TABLET BY MOUTH THREE TIMES A DAY 270 tablet 1 01/16/2023 Active Additional Information Patient taking differently:5 mg Oral3 TIMES DAILY PRN, Reported on 12/17/2023 albuterol HFA (Proventil; Ventolin; Proair) 108 (90 Base) MCG/ACT inhaler INHALE 2 PUFFS BY MOUTH EVERY 4 HOURS NEEDED 54 g 3 02/17/2023 Active ketoconazole (Nizoral) 2 % creamIndications:Ec zema,Tinea Pedis Apply to the feet and toes twice a day as needed. Do not apply between the toes. Reasons: Athlete's Foot, Eczema 60 g 2 03/04/2023 Active diclofenac sodium (Voltaren) 1 % gelIndications:Oste oarthritis Apply 4 (four) g to affected area 4 times daily Apply to foot as needed for pain Reasons: Joint Damage causing Pain and Loss of Function 100 g 5 03/04/2023 Active umeclidinium-vilant ga (Anoro Ellipta) 62.5-25 MCG/ACT inhaler Inhale 1 (one) puff by mouth once daily 30 Each 11 05/18/2023 Active Lancets (Turing DataTOUCH DELICA PLUS 33G EXTRA FINE LANCET)Indications: Type 2 diabetes mellitus with diabetic neuropathy, without long-term current use of insulin (HCC) Use 1 Each once daily 100 Each 5 05/21/2023 Active Blood Glucose Monitoring Suppl (Kaboodle Verio) w/Device KITIndications:Type 2 diabetes mellitus with diabetic neuropathy, without long-term current use of insulin (HCC) Use 1 Each as directed 1 kit 05/21/2023 Active blood glucose (OneTouch Verio) test stripIndications:Ty pe 2 diabetes mellitus with diabetic neuropathy, without long-term current use of insulin (HCC) Use 1 (one) strip as directed 50 strip 11 05/21/2023 Active ipratropium (Atrovent) 0.03 % nasal sprayIndications:Na ghulam congestion SPRAY 1-2 SPRAYS INTO EACH NOSTRIL 3 TIMES DAILY 30 mL 06/04/2023 Active fluticasone propionate (Flonase) 50 MCG/ACT nasal spray [place] 1 (one) spray into each nostril 2 times daily 16 g 11 10/07/2023 Active pantoprazole EC (Protonix) 40 MG tabletIndications:G astroesophageal reflux disease without esophagitis Take 1 (one) tablet by mouth once daily 90 tablet 1 10/13/2023 Active Additional Information Patient taking differently:40 mg OralDAILY PRN, Reported on 12/17/2023 rosuvastatin (Crestor) 10 MG tabletIndications:M ixed hyperlipidemia TAKE 1 TABLET BY MOUTH ONE TIME PER WEEK 12 tablet 3 10/13/2023 Active vibegron (Gemtesa) 75 MG tablet Take 1 (one) tablet by mouth once daily 90 tablet 3 11/26/2023 Active nystatin (Mycostatin) 314687 UNIT/GM ointment Apply to vulva twice daily 30 g 3 11/26/2023 Active Xarelto 20 MG tabletIndications:R ecurrent pulmonary embolism (HCC) TAKE 1 TABLET BY MOUTH EVERY DAY BEFORE DINNER 90 tablet 1 12/07/2023 Active furosemide (Lasix) 20 MG tabletIndications:C hronic diastolic heart failure (HCC) TAKE 2 TABLETS BY MOUTH EVERY DAY 180 tablet 1 12/11/2023 Active metFORMIN (Glucophage) 500 MG tabletIndications:D rug-induced diabetes mellitus (HCC) TAKE 2 (TWO) TABLETS BY MOUTH EVERY MORNING AND 1 (ONE) TABLET DAILY WITH DINNER. 270 tablet 3 01/27/2024 Active predniSONE (Deltasone) 5 MG tabletIndications:R heumatoid arthritis involving multiple sites with positive rheumatoid factor (HCC) TAKE 1 TABLET BY MOUTH EVERY DAY 90 tablet 1 02/02/2024 Active SITagliptin (Januvia) 100 MG tabletIndications:T ype 2 Diabetes Mellitus Take 1 (one) tablet by mouth once daily Reasons: Type 2 Diabetes 90 tablet 1 02/03/2024 Active nitroGLYCERIN (Nitrostat) 0.4 MG tablet DISSOLVE 1 (ONE) TABLET UNDER THE TONGUE EVERY 5 MINUTES NEEDED FOR ANGINA 25 tablet 02/16/2024 Active levothyroxine (Synthroid) 88 MCG tabletIndications:P ostablative hypothyroidism Take 1 (one) tablet by mouth once daily 90 tablet 1 03/16/2024 Active HYDROcodone-acetami nophen (Wataga) 5-325 MG tabletIndications:R heumatoid arthritis involving multiple sites, unspecified whether rheumatoid factor present (HCC) Take 1 (one) tablet to 2 (two) tablets by mouth 2 times daily 90 tablet 03/25/2024 Active Active Problems Problem Noted Date Diagnosed Date Abnormal PFT 08/25/2023 Phlebolith 03/31/2023 Overview (03/31/2023): Left distal medial tib/fibula Type 2 diabetes mellitus wit h neurologic complication, without long-term current use of insulin 01/01/2023 Diabetes mellitus type 2 without retinopathy 04/2022 Overview (10/13/2023): Last Assessment & Plan: No retinopathy both eyes (OU). Pt ed. Stressed BG control (HbA1C<7) to reduce the risk for diabetic ocular complications. Lab Results Component Value Date HGBA1C 5.8 (H) 06/01/2015 Osteopenia 02/22/2022 06/27/2022 Esophageal reflux 12/10/2021 Age-related cataract of both eyes 04/15/2021 Overview (12/10/2021): Last Assessment & Plan: She is not bothered, observe History of uveitis 09/02/2020 06/27/2022 Overview (06/27/2022): Last Assessment & Plan: She has no active inflammation today. Follow up in [address] Urena COPD (chronic obstructive pulmonary disease) Tachycardia, paroxysmal 05/16/2020 Recurrent pulmonary embolism 04/06/2015 BIJAN (obstructive sleep apnea) 12/30/2013 Exertional angina 03/11/2013 02/05/2023 Hepatic steatosis 03/03/2012 Diverticulosis of colon 07/12/2010 Degeneration of cervical intervertebral disc 11/2010 Rheumatoid arthritis involving multiple sites Overview (12/24/2014): Restrictive lung disease 10/02/2009 Hypothyroidism 10/02/2009 HLD (hyperlipidemia) 10/02/2009 HTN (hypertension) Chronic diastolic heart failure Overview (06/09/2017): Dr Marcos Banks 03-23-2017 Resolved Problems Problem Noted Date Diagnosed Date Resolved Date Diabetic neuropathy 04/25/2021 01/02/20 23 Controlled substance agreement signed 11/20/2020 01/01/2023 Fever of unknown origin 07/14/202012/17 Leukocytosis 07/14/2020 04/25/2021 Tachypnea 07/01/2020 01/01/2023 Statin intolerance 05/16/2020 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 01/01/2023 Overview (09/28/2019): 2/2 chronic steroid use History of diabetes mellitus 04/05/2019 01/01/2023 Morbid (severe) obesity due to excess calories 04/05/2019 10/13/2023 Pre-diabetes 12/01/2016 01/01/2023 Pulmonary embolism 01/04/2015 6 Shortness of breath 11/09/2014 12/02/19 17 Pleuritic chest pain 11/09/2014 017 Pulmonary embolus 04/20/2013 04/06/2015 Epigastric pain 02/02/2012 12/01/2016 Abdominal pain, generalized 11/01/2008 01/20/2018 Nausea and vomiting 11/01/2008 12/02/19 17 Screening for condition 11/01/200812/17 Overview (11/16/2014): Adult Abstraction Problem List Screening Dexa Scan (Bone Density): Result: Not avail in chart Date: 2008 Colonoscopy: Result: Not avail in chart Date: 2007 Occult Blood (Stool Cards): Result: Not avail in chart Date: 2007 Pap Smear: Result: Not avail in chart Date: Mammogram: Result: Not avail in chart Date: Immunizations Name Administration Dates Next Due INFLUENZA VACCINE, TRIV. (AF LURIA, FLUZONE TRIVALENT; 6MO+) (IIV3) 12/30/2011,11/19/2010 Covid Pfizer primary monoval ent 12+ yr 0.3mL Purple cap 11/14/2020,10/24/2020 INFLUENZA VACCINE 03/04/2013,12/30/2011 PNEUMOCOCCAL PCV20 CONJ VAC IM 06/27/2022 PNEUMOCOCCAL PPSV23 12/30/2011 TD VACCINE 09/13/2013 Social History Tobacco Use Types Packs/Day Years Used Date Smoking Tobacco: Former Smokeless Tobacco: Never Tobacco Cessation:Counseling Given: Yes Comments:Quit 30 years ago Alcohol Use Standard Drinks/Week Comments Not Currently 0 (1 standard drink = 0.6 oz pur e alcohol) PHQ-2 Answer Date Recorded Patient Health Questionnaire-2 Score 0 02/03/2024 Sex and Gender Information Value Date Recorded Sex Assigned at Not on file Gender Identity Not on file Sexual Orientation Not on file Last Filed Vital Signs Vital Sign Reading Time Taken Comments Blood Pressure 128/74 02/03/2024 1:14 PM [employer]ODUCT Pulse 102 02/03/2024 1:14 PM [employer] Temperature 36.7 C (98.1 F) 02/03/2024 1:14 PM [employer] PRODUCT Respiratory Rate 18 01/21/2023 4:54 PM [employer] PRODUCT Oxygen Saturation 99% 02/03/2024 1:14 PM [employer] PRODUCT Inhaled Oxygen Concentration 21% 07/18/2020 7 :57 AM CDT Weight 106.7 kg (235 lb 3.2 oz) 02/03/2024 1:14 PM [employer] PRODUCT Height 175.3 cm (5' 9.02 ) 02/03/2024 1:14 PM CS T Body Mass Index 34.72 02/03/2024 1:14 PM [employer] PRODUCT Functional Status Functional Status Response Date of [...] person have difficulty concentrating/remembering/making decisions? No 07/16/2020 Plan of Treatment Upcoming Encounters Date Type Department Care Team (Late st Contact Info) Description 06/07/2024 1:20 PM CDT Office Visit [facility] - Internal Medicine [address] [place] [phone] [place] [address] [place] [address] [address] [place] [phone] 12/01/2024 11:45 AM CDT Office Visit [facility] [employer] [address] [place] [address] [address] [place] [phone] [place] [address] [place] [id number] Procedures Procedure Name Priority Date/Time Associated Diagnosis Comments HEMOGLOBIN A1C - POINT OF CARE (AMB) Routine 02/03/2024 1:15 PM [employer] PRODUCT Type 2 diabetes mellitus with diabetic neuropathy, without long-term current use of insulin (HCC) MICROALB/CREAT RATIO URINE RANDOM PANEL Routine 10/17/2023 10:25 AM CDT Type 2 diabetes mellitus with diabetic neuropathy, without long-term current use of insulin (HCC) COMPREHENSIVE METABOLIC PANEL Routine 10/17/2023 10:25 AM CDT Type 2 diabetes mellitus with diabetic neuropathy, without long-term current use of insulin (HCC) MAMMO BILAT SCREENING W HUGO Routine 10/13/2023 2:54 PM CDT Encounter for screening mammogram for malignant neoplasm of breast SCAN ONLY HIS OPIOID MED AGREEMENT 10/13/2023 EYE EXAM 06/13/2022 HPV DETECTION HIGH RISK MELINDA Routine 11/02/2020 2:27 PM CDT Well woman exam with routine gynecological exam HIV-1 HIV-2 ANTIBODY + HIV P24 AG PANEL Routine 02/24/2020 8:11 AM [employer] Screening for HIV (human immunodeficiency virus) ENDOSCOPY, COLON, SCREENING Routine 01/25/2016 9:18 AM [employer] HEPATITIS C ANTIBODY Routine 11/30/2012 12:54 PM CDT Need for hepatitis C screening test from Last 3 Months or Most Recently Relevant to Health Maintenance Results * HEMOGLOBIN A1C - POINT OF CARE (HgbA1C) (02/03/2024 1:15 PM [employer]ODUCT) Hemoglobin A1c POCT 8.4 % [facility] Expiration Date 10/06/[address] [facility] [facility] Lot # [id number] [facility] QC Verified Yes Yes [facility] Blood BLOOD SPECIMEN / Unknown 02/03/2024 1:15 PM [employer] PRODUCT Mercedes Collins MD LAB - POINT OF CARE ORDERABLES Performing Organization Address City/State/[facility] Co de Phone Number [facility] [address] [phone] * MICROALB/CREAT RATIO URINE RANDOM PANEL (10/17/2023 10:25 AM CDT) Creatinine Urine 57.6 Not Estab. mg/dL [facility] INSURANCE BILL Microalbumin Urine <3.0 Not Estab. ug/mL [facility] INSURANCE BILL Microalbumin/Crea tinine Ratio <5 0 - 29 mg/g creat [facility] INSURANCE BILL Comment: Normal: 0 - 29 Moderately increased: 30 - 300 Severely increased: >300 FASTING Urine URINE SPECIMEN OBTAINED BY CLEAN CATCH PROCEDURE / Unknown 10/17/2023 10:25 AM CDT 10/17/2023 Narrative Resulting Agency Comment Lab Testing performed at: [facility] [phone] Mercedes Collins MD LAB - URINE CHEMISTR Y ORDERABLES [facility] INSURANCE BILL [address] [place] [address] * (ABNORMAL) COMPREHENSIVE METABOLIC PANEL (10/17/2023 10:25 AM CDT) Glucose 160(H) 70 - 99 mg/dL [facility] INSURANCE BILL BUN 15 8 - 27 mg/dL [facility] INSURANCE BILL Creatinine 0.91 0.57 - 1.00 mg/dL [facility] INSURANCE BILL eGFR by CKD-EPI 71 >59 mL/min/1.7 3 [facility] INSURANCE BILL BUN/Creatinine Ratio 16 12 - 28 [facility] INSURANCE BILL Sodium 137 134 - 144 mmol/L [facility] INSURANCE BILL Potassium 4.2 3.5 - 5.2 mmol/L [facility] INSURANCE BILL Chloride 98 96 - 106 mmol/L [facility] INSURANCE BILL CO2 21 20 - 29 mmol/L [facility] INSURANCE BILL Calcium 9.6 8.7 - 10.3 mg/dL [facility] INSURANCE BILL Protein Total 7.7 6.0 - 8.5 g/dL [facility] INSURANCE BILL Albumin 4.2 3.9 - 4.9 g/dL [facility] INSURANCE BILL Globulin Total 3.5 1.5 - 4.5 g/dL [facility] INSURANCE BILL Bilirubin Total 0.7 0.0 - 1.2 mg/dL [facility] INSURANCE BILL Alkaline Phosphatase 98 44 - 121 IU/L [facility] INSURANCE BILL AST 44(H) 0 - 40 IU/L [facility] INSURANCE BILL ALT 63(H) 0 - 32 IU/L [facility] INSURANCE BILL Comment:FASTING Blood BLOOD SPECIMEN / Unknown 10/17/2023 10:25 AM CDT 10/17/2023 Narrative Resulting Agency Comment Lab Testing performed at: [facility] [place] [phone] Mercedes Collins MD LAB - CHEMISTRY [facility] Organization Address City/State/ZIP Co de Phone Number [facility] INSURANCE BILL [address] [place] [address] * Mammo Bilat Screening W Hugo (10/13/2023 2:54 PM CDT) Anatomical Region Laterality Modality Breast Bilateral Mammography 10/13/2023 3:13 PM CDT Impressions 10/13/2023 3:15 PM CDT : Annual screening mammography is recommended. OVERALL FINAL ASSESSMENT: BI-RADS Category 1: Negative. > Interpreting Provider: Levy Valencia MD on 10/13/2023 3:15 PM Narrative 10/13/2023 3:15 PM CDT EXAMINATION: BILATERAL DIGITAL SCREENING MAMMOGRAM AND BILATERAL BREAST TOMOSYNTHESIS HISTORY: Screening. COMPARISON: Serial examinations dating back to October 06, 2011. TECHNIQUE: BILATERAL digital breast tomosynthesis (DBT) and synthetic 2D digital mammogram images were obtained (bilateral craniocaudal and mediolateral oblique projections) including computer aided detection (CAD.) BREAST PARENCHYMAL COMPOSITION:Category A: The breasts are almost entirely fatty. MAMMOGRAM FINDINGS: There is no suspicious finding in either breast. Mercedes Collins MD MAMMO ORDERABLES * SCAN ONLY HIS OPIOID MED AGREEMENT (10/13/2023) 10/13/2023 Narrative 10/13/2023 Ordered by an unspecified provider. Scanned Document SCANNING ONLY * EYE EXAM (06/13/2022) Anatomical Region Laterality Modality Other 06/13/2022 Narrative 06/13/2022 Ordered by an unspecified provider. Scanned Document SCANNING ONLY * HPV DETECTION HIGH RISK MELINDA (11/02/2020 2:27 PM CDT) High Risk Human Papilloma Result Not detected Not detected 11/07/2020 5:01 PM CDT [facility] High Risk Human Papilloma Interp 11/07/2020 5:01 PM CDT [facility] Comment:High Risk Human Dev lloma Virus was Not Detected. Pathology/Cytolo gy MISCELLANEOUS SAMPLES / Unknown 11/02/2020 2:27 PM CDT 11/05/2020 12:05 PM CDT Narrative [facility] - 11/07/2020 5:01 PM CDT Nucleic acid isolated from the specimen was analyzed with a nucleic acid amplification test (FDA approved Gen-Probe HPV Assay) to detect high risk human papilloma virus (Types: 16, 18, 31, 33, 35, 39, 45, 51, 52, 56, 58, 59, 66, and 68). The reference range is Not Detected . Comment: These test results should not be used as the sole basis for clinical assessment and treatment of patients. These results should always be correlated with other available data (cytology, histology, and clinical information). Peterson Nance MD LAB - MICROBIOLOGY Chauncey GRAMAJO [facility] LAB [address] [phone] * HIV-1 HIV-2 ANTIBODY + HIV P24 AG PANEL (02/24/2020 8:11 AM HEAD OF PRODUCT) [facility] HIV Screen 4th Generation w Reflex Non Reactive Non Reactive [facility] INSURANCE BILL Blood BLOOD SPECIMEN / Unknown 02/24/2020 8:11 AM [employer] PRODUCT 02/24/2020 Narrative Resulting Agency Comment [facility]: [facility] [address] [facility] [phone] Mercedes Collins MD LAB - CHEMISTRY [facility] INSURANCE BILL [address] [place] [address] * ENDOSCOPY, COLON, SCREENING (01/25/2016 9:18 AM [employer] PRODUCT) Report Endoscopy POC _ Patient Name: Pola Turner Procedure Date: 01/25/2016 9:18 AM Date of : 1960 Admit Type: Outpatient Age: 55 Gender: Female Attending MD: Nikita Fraser MD _ Procedure: Colonoscopy Indications: Screening for colorectal malignant neoplasm Providers: Nikita Fraser MD (Doctor), Ira Manzano RN Referring MD: Shabana Maurer MD (Referring MD) Medicines: Monitored Anesthesia Care Complications: No immediate complications. _ Procedure: Pre-Anesthesia Assessment: - ASA Grade Assessment: II - A patient with mild systemic disease. - Airway Examination: Mallampati Class I (tonsillar pillars visualized). After I obtained informed consent, the scope was passed under direct vision. Throughout the procedure, the patient's blood pressure, pulse, and oxygen saturations were monitored continuously. The Colonoscope was introduced through the anus and advanced to the cecum, identified by appendiceal orifice and ileocecal valve. The colonoscopy was performed without difficulty. The patient tolerated the procedure well. The quality of the bowel preparation was good. Impression: - Diverticulosis. - No specimens collected. Findings: Diverticula were found in the colon. _ Recommendation: - Repeat colonoscopy in 10 years for screening purposes. - Repeat colonoscopy sooner in the event of new symptoms ie: bleeding, weight loss or change in bowel habits etc, or if a family member (mother, father, sister, brother) is diagnosed with polyps or colon cancer. Procedure Code(s): --- Professional --- 49872, Colonoscopy, flexible; diagnostic, including collection of specimen(s) by brushing or washing, when performed (separate procedure) --- Technical --- 92567, Colonoscopy, flexible; diagnostic, including collection of specimen(s) by brushing or washing, when performed (separate procedure) Diagnosis Code(s): --- Professional --- Z12.11, Encounter for screening for malignant neoplasm of colon K57.30, Diverticulosis of large intestine without perforation or abscess without bleeding --- Technical --- Z12.11, Encounter for screening for malignant neoplasm of colon K57.30, Diverticulosis of large intestine without perforation or abscess without bleeding CPT copyright 2015 [employer]. All rights reserved. The codes documented in this report are preliminary and upon technical data analyst review may be revised to meet current compliance requirements. Nikita Fraser MD 01/25/2016 9:58:01 AM This report has been signed electronically. Number of Addenda: 0 Note Initiated On: 01/25/2016 9:18 AM [facility] 01/25/2016 9:18 AM HEAD OF PRODUCT Nikita Fraser MD GI PROCEDURE ORDERAB LES [facility] * HEPATITIS C ANTIBODY (11/30/2012 12:54 PM CDT) Hepatitis C Antibody <0.1 0.0 - 0.9 s/co ratio [facility] INSURANCE BILL Comment: Negative: < 0.8 Indeterminate 0.8 - 0.9 Positive: > 0.9 . In order to reduce the incidence of a false positive result, the CDC recommends that all s/co ratios between 1.0 and 10.9 be confirmed by a more specific supplemental or PCR testing. [facility]Reflex to Verification test #[id number]. Blood specimen (specimen) BLOOD SPECIMEN / Unknown 11/30/2012 12:54 PM CDT 11/30/2012 7:02 PM CDT Narrative Resulting Agency Comment [facility] [id number] José Ashton MD LAB - CHEMISTRY [facility] Organization Address City/State/ZIP Co de Phone Number [facility] from Last 3 Months or Most Recently Relevant to Health Maintenance Advance Directives Documents on File Type Date Recorded Patient Personnel Administrator Expl anation Adv Directive/Living Will/POA 02/20/2013 9:49 AM * Full Code (Latest Code Status on File) Date Activated Date Inactivated Comments 07/14/2020 11:16 AM 07/18/2020 4:08 PM * Full Code Date Activated Date Inactivated Comments 07/14/2020 4:10 AM 07/14/2020 11:16 AM * FULL RESUSCITATION Date Activated Date Inactivated Comments 03/03/2013 9:07 PM 03/05/2013 5:52 PM * FULL RESUSCITATION Date Activated Date Inactivated Comments 09/11/2010 5:18 PM 2010 11:41 PM Care Teams Assistant Quality Manager Relationship Specialty Start Date End Date Mercedes Collins MD [address] [place] [phone] PCP - General Internal Medicine 05/17/19 Mercedes Collins MD [address] [place] [phone] PCP - Attributed-[place] 02/16/23 Chucky Menendez MD [address] [place] [id number] Financial Planning Advisor Pulmonary Disease 09/20/15 Wade Zelaya Jr., MD [address] [place] [id number] Rheumatology 12/01/16 Danielle Reina MD [address] [place], [place] [id number] Orthopedic Surgery 12/01/16 Ramsey Barbosa MD [address] [place] [id number] Internal Medicine 10/29/22
--- OUTSIDE RECORDS SUMMARY | 2024-04-24 19:38 | XMS_ITS | Continuity of Care Document ---
Author Organization [employer] Address [address] [place] [address] Phone Care Team Providers Care Barrel Cap Setter Name Role Phone Ivon LAM, Tre Osborn Unavailab le Allergies, Adverse Reactions, Alerts Substance Reaction Status Criticality leflunomide GI Problems(severe) Active No Infor mation Xbvpepj-IIH-IpY Reductase Inhibitors myalgias(moderate ) Active No Information levofloxacin (severe) Active No Information CIPROFLOXACIN HCL (severe) Active No Informa tion ciprofloxacin (severe) Active No Information Medications Medication Instructions Dosage Effective Dates (start - stop) Status Comments levothyroxine 88 mcg tablet TAKE 1 TABLET BY MOUTH DAILY 88 MCG - Active Pt WILL need to contact NEW PCP for any future refills. Klor-Con M20 mEq tablet,extended release take 1 Tablet by Oral route once - Active Pt has appt with Dr Agata Castro 11-4 METFORMIN HCL 500 MG TABLET TAKE 1 TABLET BY MOUTH DAILY WITH DINNER - Active furosemide 40 mg tablet TAKE ONE TABLET BY MOUTH EVERY MORNING AND TAKE ONE TABLET BY MOUTH EVERY EVENING - Active Pt has appt with Dr Castro January 03. Xarelto 20 mg tablet take 1 tablet by oral route every day with the evening meal 20 MG - Active Astepro 0.15 % (205.5 mcg) nasal spray spray 1 spray by intranasal route 2 times every day in each nostril - Active fluticasone 50 mcg/actuation nasal spray,suspension spray 1 spray by intranasal route every day in each nostril - Active hydrocodone 5 mg-acetaminophen 325 mg tablet take 1 tablet by oral route every 8 hours as needed for pain 1 tablet - Active Do not fill till October 22, 2016 OneTouch Ultra Test strips USE ONE STRIP TO CHECK GLUCOSE ONCE DAILY for E11.42 Not Available - Active omeprazole 20 mg capsule,delayed release take 1 capsule by mouth 30-60 minutes before breakfast on an empty stomach daily as needed - Active albuterol sulfate 1.25 mg/3 mL solution for nebulization inhale 6 milliliter by inhalation route 3- 4 times every day via nebulizer 2.5 MG - Active prednisone 10 mg tablet take by oral route every day TAKE 4 PILLS /DAY X 3 DAYS; THEN 3 PILLS /DAY X 3 DAYS. THEN 2 PILLS/DAY X 3 DAYS; THEN ONE PILL/DAY X 3 DAYS THEN STOP. - Active pharmacist to calculate amount nitroglycerin 0.[address] 1 tablet by sublingual route at the 1st sign of attack; may repeat every 5 min until relief; if pain persists after 3 tablets in 15 min, prompt medical attention is recommended 0.4 MG - Active buspirone 5 mg tablet take 1 tablet by oral route 3 times every day TAKE 6AM 6PM AND BEDTIME NEEDED FOR ANXIETY. as needed 5 MG - Active OneTouch UltraSoft Lancets apply 1 by Misc.(Non-Drug; Combo Route) route use as directed 1 - Active Ventolin HFA 90 mcg/actuation aerosol inhaler inhale 2 - 4 puff by inhalation route every 4 hours as needed 2-4 puff - Active Anoro Ellipta 62.5 mcg-25 mcg/actuation powder for inhalation inhale 1 puff by inhalation route every day at the same time each day 1.00 puff - Active methotrexate sodium 25 mg/mL injection solution inject 1 milliliter by intramuscular route every week 25 MG - Active isosorbide mononitrate ER 30 mg tablet,extended release 24 hr take 1 tablet by oral route every day in the morning 30 MG - Active folic acid 1 mg tablet take 1 tablet by oral route every day 1 MG - Active fexofenadine 180 mg tablet take 1 tablet by oral route every morning as needed 180 MG - Active Vitamin D3 5,000 unit tablet take 1 Tablet by Oral route once 1 Tablet - Active Os-Luis 500 + D 500 mg (1,250 mg)-600 unit tablet take 1 Tablet by Oral route 2 times every day TAKE WITH FOOD 1 Tablet - Active Women's 50+ Daily Formula 400 mcg-120 mg tablet - Active Xeljanz 5 mg tablet take 1 tablet by oral route 2 times every day 5 MG - Active Advance Directives Directive Yes / No Effective Date File Name No Information Encounters Encounter Description Practice Location Reason(s) For Visit Diagnoses Date Provider Providers Copied on Encounter [employer] [facility], [address], [place], [place], [address] , tel: [phone] [facility] No Information 8 Ivon Toledo. [address], [id number], . tel:[phone] [facility] [facility] [facility], [address], [place], [place], [address] , tel: [phone] [facility] No Information 7 Frank Gonzalez. [address] [facility], [place] [address], [place], [place], [address], [place]. tel:[phone] [facility], [address], [place], [place], [address] , tel: [phone] [facility] No Information 7 Ivon Toledo. [address], [id number], [place]. [phone] [facility] [facility] [facility], [address], [place], [place], [address] , tel: [phone] [facility] No Information 7 Ivon Toledo. [address], [id number], [place]. [phone] [facility], [address], [place], [place], [address] , tel: [phone] [facility] No Information 7 Ivon Toledo. [address] [place], [facility] [address], [place], [place], [address], [place]. tel:[phone] [facility], [address], [place], [place], [address] , [place] tel: [phone] [facility] No Information 7 [place] [employer] Shabana. [address], [facility] [address], [place], [place], [address]. tel:[phone] [facility], [address], [place], [place], [address] , [place] tel: [phone] [facility] Hypothyroidism (acquired)Diabetic polyneuropathy associated with type 2 diabetes mellitusChronic diastolic (congestive) heart failureRecurrent pulmonary embolismRheumatoid arthritis involving multiple sites with positive rheumatoid factor Frank Gonzalez. [address] [facility], [address], [place], [place], [address], [place]. tel: [phone] Referring Provider: Tre Del Valle , [address] [place] [address], [place], [address] . tel:[phone] [facility], [address], [place], [place], [address] , [place] tel: [phone] [facility] No Information 7 [place] [employer] Shabana. [facility] [address], [place], [place], [address]. tel:[phone] [facility], [address], [place], [place], [address] , [place] tel: [phone] [facility] No Information 7 [place] [employer] Shabana. [address] [place] [address], [facility] [address], [place], [place], [address]. tel:[phone] [facility], [address], [place], [place], [address] , [place] tel: [phone] [facility] URI, acuteUnspecified asthma, uncomplicatedCough 7 Jazmin Nicole. [address], [address], [place], [place], [address], [place]. tel:[phone] Referring Provider: Shabana Maurer, [address], [place], [address] . tel:[phone] [facility], [address], [place], [place], [address] , [place] tel: [phone] [facility] No Information 2 7 [place] Donald. [address], [address], [place], [place], [address]. tel:[phone] [facility], [address], [place], [place], [address] , [place] tel: [phone] [facility] No Information 0 7 [place] Donald. [address] [place], [facility] [address], [place], [place], [address]. tel:[phone] [facility], [address], [place], [place], [address] , [place] tel: [phone] [facility] Recurrent pansinusitisRheumat oid arthritis flareRecurrent pulmonary embolismChronic diastolic (congestive) heart failureDiabetic polyneuropathy associated with type 2 diabetes mellitusHypothyroid ism (acquired)Long-term use of high-risk medication 7 [place] Donald. [address] [place], [facility] [address], [place], [place], [address]. tel:[phone] Referring Provider: Shabana Maurer, [address] [place] [address] [address], [place], [address] . tel:[phone] [facility], [address], [place], [place], [address] , [place] tel: [phone] [facility] ThrushAbdominal pain, left lower quadrantHematuria 6 Frank Gonzalez. [address], [address], [place], [place], [address], [place]. tel:[phone] Referring Provider: Shabana Maurer, [facility], [place], [address] . tel:[phone] [facility], [address], [place], [place], [address] , tel: [phone] [facility] Asthma exacerbationChronic diastolic (congestive) heart failureRecurrent pulmonary embolismRheumatoid arthritis flareDiabetic polyneuropathy associated with type 2 diabetes mellitus 6 [place] [employer] Shabana. [address], [address], [place], [place], [address]. tel:[phone] Referring Provider: Shabana Maurer, [address] [place] [address] [address], [place], [address] . tel:[phone] [facility] [address], [place], [place], [address] , tel: [phone] [facility] Sciatica associated with disorder of lumbar spine, leftOther cervical disc displacement, high cervical regionRheumatoid arthritis, unspecifiedChronic diastolic heart failureDiabetic polyneuropathy associated with type 2 diabetes mellitusPharyngitis , unspecified etiology 6 Mary Ann Donald. [address] [place], [place] [address], [address], [place], [place], [address]. tel:[phone] Referring Provider: Shabana Maurer, [address] [place], [place] [address] [address], [place], [address] . tel:[phone] [facility] [address], [place], [place], [address] , [place] tel:[phone] [facility] Chronic diarrheaDiabetic polyneuropathy associated with type 2 diabetes mellitusRheumatoid arthritis, unspecified 6 Mary Ann Donald. [address], [address], [place], [place], [address]. tel:[phone] Referring Provider: Shabana Maurer, [facility] [address], [place], [address] . tel:[phone] [facility], [address], [place], [place], [address] , [place] tel: [phone] [facility] Diabetic polyneuropathy associated with type 2 diabetes mellitusChronic diastolic heart failureHypothyroidi sm (acquired) 6 Ivon Toledo. [address], [address], [place], [place], [address], [place]. tel:[phone] [facility], [address], [place], [place], [address] , [place] tel: [phone] [facility] Dysuria 6 Mary Ann Donald. [address], [address], [place], [place], [address]. tel:[phone] Referring Provider: Shabana Maurer, [address] [place] [address], [place], [address] . tel:[phone] [facility], [address], [place], [place], [address] , [place] tel: [phone] [facility] Rheumatoid arthritis involving multiple sites with positive rheumatoid factorOther cervical disc displacement, high cervical regionType 2 diabetes mellitus with diabetic neuropathy, unspecifiedOsteopor osis 6 Mary Ann Donald. [address], [address], [place], [place], [address]. tel:[phone] Referring Provider: Shabana Maurer, [facility], [place], [address] . tel:[phone] [facility], [address], [place], [place], [address] , [place] tel: [phone] [facility] Fatigue, unspecified type 5 Frank Gonzalez. [address], [address], [place], [place], [address], [place]. [phone] Referring Provider: Shabana Maurer, [facility], [place], [address] . tel:[phone] [facility], [address], [place], [place], [address] , [place] tel: [phone] [facility] Urgency of urination Sep-0 5 Mary Ann Donald. [address] [place], [facility] [address], [place], [place], [address]. tel:[phone] [facility], [address], [place], [place], [address] , [place] tel: [phone] [facility] ROUTINE MEDICAL EXAMScreening for depressionOther and unspecified angina pectorisOther pulmonary embolism and infarctionRheumatoi d ArthritisPrimary pulmonary hypertensionChronic diastolic heart failureDiabetes mellitus with neurological manifestations, type II or unspecified type, not stated as uncontrolledMononeu ritis of unspecified siteVitamin D deficiencyAnxietyOb structive sleep apnea 5 Mary Ann Donald. [address] [place] [address], [facility] [address], [place], [place], [address]. tel:[phone] Referring Provider: Shabana Maurer, [address] [place] [address], [place], [address] . tel:[phone] [facility], [address], [place], [place], [address] , [place] tel: [phone] [facility] GERD (gastroesophageal reflux disease)Rheumatoid ArthritisAllergic rhinitisDiabetic neuropathyPolyneuro huma in diabetes 0 5 Jazmin Nicole. [address] [place] [address], [place], [place], [address], [place]. tel:[phone] Referring Provider: Shabana Maurer, [address] [place] [address] 107, [place], [address] . tel:[phone] [facility], [address], [place], [place], [address] , tel:[phone] [facility] Otitis mediaPharyngitis 2 5 Jazmin Nicole. [address] [place] [address], [place], [place], [address], [place]. tel:[phone] Referring Provider: Shabana Maurer, [address] [place] [address] 107, [place], [address] . tel:[phone] [facility], [address], [place], [place], [address] , tel: [phone] [facility] No Information 5 Mary Ann Donald. [address], [facility] [address], [place], [place], [address]. tel:[phone] [facility], [address], [place], [place], [address] , [place] tel: [phone] [facility] AsthmaSinus infection 5 Jadon Roth. [facility]7 [facility] 107, [place], [place], [address], [place]. tel:[phone] Referring Provider: Shabana Maurer, [address] [place] [address], [place], [address] . tel:[phone] [facility], [address], [place], [place], [address] , [place] tel: [phone] [facility] Diabetic neuropathyPolyneuro huma in diabetesBenign hypertensive heart diseaseRheumatoid ArthritisHypothyroi dism (acquired)AnxietyAs thma 5 Frank Gonzalez. [address] [facility], [address], [place], [place], [address], [place]. tel:[phone] Referring Provider: Shabana Maurer, [address] [place] [address], [place], [address] . tel:[phone] [facility], [address], [place], [place], [address] , tel: [phone] [facility] Acute bronchitisDiabetic neuropathyAnxietyPo lyneuropathy in diabetes 4 Mary Ann Donald. [facility] [place], [facility] 107, [place], [place], [address]. tel:[phone] Referring Provider: Shabana Maurer, [address] [place] [address] [address], [place], [address] . tel:[phone] [facility], [address], [place], [place], [address] , tel: [phone] [facility] Abnormal glucoseBenign hypertensive heart disease 4 Rolando Vela. [address] [place] [address], [address], [place], [place], [address]. tel:[phone] Referring Provider: Shabana Maurer, [address] [place] [address], [place], [address] . tel:[phone] [facility], [address], [place], [place], [address] , tel: [phone] [facility] Laceration of toe with foreign body with damage to nailThromboembolic disorderNEED FOR PROPHYLACTIC VACCINATION AND INOCULATION AGAINST TETANUS-DIPHTHERIA [TD] (DT) 4 Mary Ann Donald. [address] [place] [address], [address], [place], [place], [address]. tel:[phone] Referring Provider: Shabana Maurer, [address] [place] [address] [address], [place], [address] . tel:[phone] [facility], [address], [place], [place], [address] , [place] tel:[phone] [facility] Benign hypertensive heart diseasePulmonary EmbolusSleep Apnea, ObstructiveDiabetic neuropathyPolyneuro huma in diabetes 4 Mary Ann Donald. [address] [place] [address], [address], [place], [place], [address]. tel:[phone] Referring Provider: Shabana Maurer, [address] [place] [address] [address], [place], [address] . tel:[phone] [facility], [address], [place], [place], [address] , tel:[phone] [facility] Abnormal glucoseHypothyroidi sm (acquired)Rheumatoi d Arthritis 4 Mary Ann Donald. [facility] [place], [facility] [address], [place], [place], [address]. tel:[phone] Referring Provider: Shabana Maurer, [address] [place] [address], [place], [address] . tel:[phone] [facility], [address], [place], [place], [address] , tel: [phone] [facility] Esophageal spasmChest Pain, Unspecified 4 Jazmin Nicole. [address] [place] [address], [place] [address], [place], [place], [address], [place]. tel:[phone] Referring Provider: Shabana Maurer, [address] [place] [address], [place], [address] . tel:[phone] [facility], [address], [place], [place], [address] , [place] tel: [phone] [facility] Pulmonary EmbolusAnginaPulmon carlos Hypertension, SecondarySleep Apnea, ObstructiveRheumato id ArthritisDiastolic dysfunctionBenign hypertensive heart disease 4 Mary Ann Donald. [address] [place] [address], [facility] [address], [place], [place], [address]. tel:[phone] Referring Provider: Shabana Maurer, [address] [place] [address], [place], [address] . tel:[phone] [facility], [address], [place], [place], [address] , tel: [phone] [facility] Shortness of BreathChest Pain, UnspecifiedChest Tightness 4 Raymond Seaman. [facility], [facility] 107, [place], [place], [address], [place]. tel:[phone] Referring Provider: Shabana Maurer, [address] [place] [address] [address], [place], [address] . tel:[phone] [facility], [address], [place], [place], [address] , [place] tel:[phone] [facility] Rheumatoid Arthritis 4 Adelaida Lewis. [address] [place] [address], [place], [place], [address], [place]. tel:[phone] [facility], [address], [place], [place], [address] , [place] tel: [phone] [facility] DiarrheaRecurrent pulmonary embolismPulmonary Hypertension, SecondarySleep Apnea, ObstructiveAnginaRh eumatoid ArthritisArterial embolism and thrombosis of unspecifed artery 4 Mary Ann Donald. [address] [place] [address], [place], [place], [address]. tel:[phone] Referring Provider: Shabana Maurer, [address] [place] [address], [place], [address] . tel:[phone] [facility], [address], [place], [place], [address] , [place] tel: [phone] [facility] Abnormal glucose 3 Ivon Toledo. [address] [place] [address], [place], [place], [address], [place]. tel:[phone] [facility], [address], [place], [place], [address] , [place] tel: [phone] [facility] No Information 3 Mary Ann Donald. [address] [place] [address], [place], [place], [address]. tel:[phone] [facility], [address], [place], [place], [address] , [place] tel: [phone] [facility] Thromboembolic disorderHypothyroid ism (acquired)half-way current use of systemic steroidsRheumatoid arthritisAsthmaObst ructive sleep apneaPulmonary hypertension 3 Mary Ann Donald. [address], [place], [place], [address]. tel:[phone] Referring Provider: Shabana Maurer, [address], [place], [address] . tel:[phone] Family History Family Member Type Diagnosis Age At Onset Problem (finding) Family history of Renal disease Problem (finding) Family history of Heari ng impairment Problem (finding) Family history of Obesi ty Problem (finding) Family history of Diabe tobin mellitus Problem (finding) Family history of Menta l illness Problem (finding) Family history of Irritable bowel disease Problem (finding) Family history of coronary arteriosclerosis Problem (finding) Family history of alzhe markus's disease Problem (finding) Family history of osteo arthritis Problem (finding) Family history of raise d blood lipids Problem (finding) Family history of hyper tension Problem (finding) Family history of seizu re disorder Problem (finding) Family history of depre ssion Problem (finding) Family history of Peripheral vascular disease Problem (finding) Family history of premature coronary heart disease Immunizations Vaccine Date Status Comments Td (adult) preservative free administered Source: New Immunization Record Payers Payer name Insurance type Covered democrat ID Authoriza tion(s) MEDICARE [id number] [employer] OPEN ACCESS I II III CI [id number] MEDICARE [id number] [employer] OPEN ACCESS I II III CI [id number] Social History Type Description Quantity Date Captured Comments Sex Female Smoking Status No Information Chief Complaint And Reason For Visit No Information Reason For Referral Reason For Referral No Information History Of Present Illness Encounter Date Complaint History Of Prese nt Illness No Information Functional Status Date Functional Assessmen t No Information Instructions Date Instruction Additional Infor mation No Information Assessments Type Assessment Date No Information Patient Care Teams Name Effective Dates (start - stop) Status Members No Information
--- OUTSIDE RECORDS SUMMARY | 2024-04-24 19:38 | XMS_ITS | Clinical Summary ---
Author Organization [facility] Address [address] [place] [address] Care Team Providers Care Cost Report Clerk Name Role Phone Chucky Menendez MD Unavailable [phone] Nathalie Guzman MD, Wade Lopes Unavailable [phone] Danielle Reina MD Unavailable [phone] Mercedes Collins MD Primary Care Provider [phone] Ramsey Barbosa MD Unavailable [phone] Mercedes Collins MD Unavailable [phone] Source Comments [facility],non-owned Affiliates and Associated Physician Practices is amultiple site organization consisting of ambulatory clinics and hospital sitesin [place], [place], [place] and [place]. This disclosure is being madepursuant to the Care Everywhere program and may not contain all information available regarding this patient. Last updated 17.[facility] Allergies Active Allergy Reactions Criticality Noted Date [...] daily 30 Each 11 05/18/2023 Active Lancets (ONETOUCH DELICA PLUS 33G EXTRA FINE LANCET)Indications: Type 2 diabetes mellitus with diabetic neuropathy, without long-term current use of insulin ([facility]) Use 1 Each once daily 100 Each 5 05/21/2023 Active Blood Glucose Monitoring Suppl (Damai.cnTouch Verio) w/Device KITIndications:Type 2 diabetes mellitus with diabetic neuropathy, without long-term current use of insulin ([facility]) Use 1 Each as directed 1 kit 05/21/2023 Active blood glucose (Damai.cnTouch Verio) test stripIndications:Ty pe 2 diabetes mellitus with diabetic neuropathy, without long-term current use of insulin ([facility]) Use 1 (one) strip as directed 50 strip 11 05/21/2023 Active ipratropium (Atrovent) 0.03 % nasal sprayIndications:Na ghulam congestion SPRAY 1-2 SPRAYS INTO EACH NOSTRIL 3 TIMES DAILY 30 mL 06/04/2023 Active fluticasone propionate (Flonase) 50 MCG/ACT nasal spray Brillion 1 (one) spray into each nostril 2 [...] 90 tablet 3 11/26/2023 Active nystatin (Mycostatin) 074191 UNIT/GM ointment Apply to vulva twice daily [...] 90 tablet 1 03/16/2024 Active HYDROcodone-acetami nophen (Herald) 5-325 MG tabletIndications:R heumatoid arthritis involving multiple [...] Mammogram: Result: Not avail in chart Date: 12/09,2008 Encounters Date Type Department Care Team Description 04/15/[address] [facility] Internal Medicine [address] [place] [phone] Mercedes Collins MD Appointment; Reminder Call; Pain Abdominal 04/14/[address] [facility] Internal Medicine [address] [place] [phone] Mercedes Collins MD Update 03/24/[address] [phone] Mercedes Collins MD MEDICATION REFILL 03/08/[address] [phone] Mercedes Collins MD Refill Request 02/15/[address] [phone] Mercedes Collins MD Refill Request 02/05/[address] [phone] Mercedes Collins MD MEDICATION REFILL 02/03/2024 1:00 PM ELEVATOR BUILDER Office Visit [address] [phone] Mercedes Collins MD Type 2 diabetes mellitus with diabetic neuropathy, without long-term current use of insulin (HCC) (Primary Dx); Rheumatoid arthritis involving multiple sites with positive rheumatoid factor (HCC); Rheumatoid arthritis involving multiple sites, unspecified whether rheumatoid factor present (HCC); Left foot pain; Postablative hypothyroidism; Mixed hyperlipidemia; Diabetes mellitus type 2 without retinopathy ([facility]); Primary hypertension; Chronic diastolic heart failure (HCC); Restrictive lung disease; BIJAN (obstructive sleep apnea); Chronic obstructive pulmonary disease, unspecified COPD type (HCC) 02/02/[address] [facility] Internal Medicine [address] [place] [phone] Mercedes Collins MD Refill Request 01/26/2024 Refill [facility] - Internal Medicine [address] [place] [address] [address] [place] [phone] Mercedes Collins MD Refill Request from Last 3 Months Immunizations Name Administration Dates Next Due INFLUENZA VACCINE, TRIV. (AF LURIA, FLUZONE TRIVALENT; 6MO+) (IIV3) 12/30/2011,11/19/2010 Covid Pfizer primary monoval ent 12+ yr 0.3mL Purple cap 11/14/2020,10/24/2020 INFLUENZA VACCINE 03/04/2013,12/30/2011 PNEUMOCOCCAL PCV20 CONJ VAC IM 06/27/2022 PNEUMOCOCCAL PPSV23 12/30/2011 TD VACCINE 09/13/2013 Family History Medical History Relation Name Comments Arthritis - Rheumatoid Brother 3 CAD (Coronary Artery Disease) Brother 4 Diabetes Brother 5 Heart Failure Brother 6 Heart Surgery Brother 7 heart transpla nt Arthritis - Rheumatoid Father Diabetes Father Thyroid Disease Father Arthritis - Rheumatoid Maternal Grandfather Arthritis - Osteo Mother Hypertension Mother Stroke Mother Cancer - Breast Other cousin Arthritis - Rheumatoid Sister 3 Seizures Sister 4 Cancer - Ovarian Neg Hx Relation Name Status Comments Brother 1 Brother 2 Alive x6 Brother 3 Brother 4 Brother 5 Brother 6 Brother 7 Father Alive Maternal Grandfather Maternal Grandmother Mother Alive Other cousin Paternal Grandfather Paternal Grandmother Sister 1 Alive Sister 2 Sister 3 Sister 4 Social History Tobacco Use Types Packs/Day Years [...] Comments Blood Pressure 128/74 02/03/2024 1:14 PM ELEVATOR BUILDER Pulse 102 02/03/2024 1:14 PM ELEVATOR BUILDER Temperature 36.7 C (98.1 F) 02/03/2024 1:14 PM ELEVATOR BUILDER Respiratory Rate 18 01/21/2023 4:54 PM ELEVATOR BUILDER Oxygen Saturation 99% 02/03/2024 1:14 PM ELEVATOR BUILDER Inhaled Oxygen Concentration 21% 07/18/2020 7 :57 AM CDT Weight 106.7 kg (235 lb 3.2 oz) 02/03/2024 1:14 PM ELEVATOR BUILDER Height 175.3 cm (5' 9.02 ) 02/03/2024 1:14 PM CS T Body Mass Index 34.72 02/03/2024 1:14 PM ELEVATOR BUILDER Plan of Treatment Upcoming Encounters Date Type Department Care Team (Late st Contact Info) Description 06/07/2024 1:20 PM CDT Office Visit [facility] - Internal Medicine [address] [place] [phone] Mercedes Collins MD [address] [place] [address] [address] [place] [phone] 12/01/2024 11:45 AM CDT Office Visit [facility] - INSPECTOR FINAL ASSEMBLY ELECTRICAL [address] [place] [phone] [place] [address] [place] [address] Health Maintenance Due Date Last Done Comments COLOGUARD (AGES 45-75) - COLON CA SCREENING 1960 CT COLONOGRAPHY - COLON CA SCREENING 1960 FIT - COLON CA SCREENING 1960 FLEX SIG - COLON CA SCREENING 1961 ZOSTER VACCINE (1 of 2) 09/15/2011 Respiratory Syncytial Virus (RSV) Vaccine Pt: or over 60 yrs (1 - Risk 60-74 years 1-dose series) 2021 DTAP/TDAP/TD VACCINES (2 - Td or Tdap) 2023 09/13/2013 COVID-19 VACCINE (3 - season) 2023 11/14/2020, 10/24/2020 INFLUENZA VACCINE (#1) 2023 , 12/30/2011, 12/30/2011, Additional history exists DEPRESSION SCREENING 02/17/2024 03/18/2023, 06/27/2022, 04/24/2021 DIABETES - URINE PROTEIN SCREENING 02/17/2024 10/17/2023, 07/21/2022, 04/20/2021, Additional history exists MEDICARE AWV CALENDAR YEAR 2024 05/21/2023, 10/07/2022, 09/04/2021, Additional history exists DIABETES-FOOT EXAM WITH MONOFILAMENT 03/22/2024 03/22/2023, 04/13/2020 (Done Outside Per Report) DIABETES-HGB A1C 08/03/2024 02/03/2024, , 05/12/2023, Additional history exists MAMMOGRAM 10/12/2024 10/13/2023, 1207/2021, 01/21/2022, Additional history exists Opioid Medication Agreement - Annual 10/12/2024 10/13/2023, 09/04/2021 DIABETES-SERUM CREATININE 10/16/20242023, 01/21/2023, 10/08/2022, Additional history exists PAP with HPV 11/02/2025 11/02/2020 COLON MONITORING 01/24/2026 01/25/2016, 10/2015, 06/25/2010, Additional history exists COLONOSCOPY - COLON CA SCREENING 01/24/2026 01/25/2016, 01/25/2016, 06/24/2010, Additional history exists Colorectal Cancer Screening 01/24/2026 DIABETES RETINOPATHY SCREENING 04/19/2026 04/19/2024, 04/20/2023 (Done Outside Per Report), 04/17/2023, Additional history exists HEPATITIS C SCREENING Completed 11/30/2012 HIV SCREENING Completed 02/24/2020 PNEUMOCOCCAL VACCINE 50+ Completed 06/27/2022, 12/17 HEPATITIS B VACCINE Aged Out No longe r eligible based on patient's age to complete this topic HIB VACCINE Aged Out No longer eligi ble based on patient's age to complete this topic HPV VACCINE Aged Out No longer eligi ble based on patient's age to complete this topic MENINGOCOCCAL (Group B) VACCINE Aged Out No longer eligible based on patient's age to complete this topic MENINGOCOCCAL VACCINE Aged Out No annamarie italo eligible based on patient's age to complete this topic Procedures Procedure Name Priority Date/Time Associated Diagnosis Comments HEMOGLOBIN A1C - POINT OF CARE (AMB) Routine 02/03/2024 1:15 PM ELEVATOR BUILDER Type 2 diabetes mellitus with diabetic neuropathy, [...] P24 AG PANEL Routine 02/24/2020 8:11 AM ELEVATOR BUILDER Screening for HIV (human immunodeficiency virus) ENDOSCOPY, COLON, SCREENING Routine 01/25/2016 9:18 AM ELEVATOR BUILDER HEPATITIS C ANTIBODY Routine 11/30/2012 12:54 PM CDT Need for hepatitis C screening test from Last 3 Months or Most Recently Relevant to Health Maintenance Results * HEMOGLOBIN A1C - POINT OF CARE (HgbA1C) (02/03/2024 1:15 PM ELEVATOR BUILDER) Hemoglobin A1c POCT 8.4 % [facility] Expiration Date 10/06/[address] [facility] Lot # [id number] [facility] QC Verified Yes Yes [facility] Blood BLOOD SPECIMEN / Unknown 02/03/2024 1:15 PM ELEVATOR BUILDER Mercedes Collins MD LAB - POINT OF CARE ORDERABLES [facility] [address] [phone] * MICROALB/CREAT RATIO URINE RANDOM PANEL (10/17/2023 [...] Resulting Agency Comment [facility]: [facility] [address] [phone] Mercedes Collins MD LAB - URINE CHEMISTR Y ORDERABLES [facility] INSURANCE BILL [address] [place] [address] * (ABNORMAL) COMPREHENSIVE METABOLIC PANEL (10/17/2023 10:25 [...] Resulting Agency Comment Lab Testing performed at: [facility] [address] [phone] Mercedes Collins MD LAB - CHEMISTRY [facility] [place] INSURANCE BILL [address] [place] [address] * Mammo Bilat Screening [place] (10/13/2023 [...] detected Not detected 11/07/2020 5:01 PM CDT [facility] High Risk Human Papilloma Interp 11/07/2020 5:01 PM CDT [facility] Comment:High Risk Human Dev lloma Virus was Not Detected. Pathology/Cytolo gy MISCELLANEOUS SAMPLES / Unknown 11/02/2020 2:27 PM CDT 11/05/2020 12:05 PM CDT Narrative [facility] - 11/07/2020 5:01 PM CDT [...] information). Peterson Nance MD LAB - MICROBIOLOGY O RDERABLES [facility] [address] [place], [place] [address] [phone] * HIV-1 HIV-2 ANTIBODY + HIV P24 AG PANEL (02/24/2020 8:11 AM ELEVATOR BUILDER) HIV Screen 4th Generation w Reflex Non Reactive Non Reactive [facility] INSURANCE BILL Blood BLOOD SPECIMEN / Unknown 02/24/2020 8:11 AM ELEVATOR BUILDER 02/24/2020 Narrative Resulting Agency Comment Lab Testing performed at: [facility] [address] [phone] Mercedes Collins MD LAB - CHEMISTRY [facility] [place] [facility] INSURANCE BILL [address] [place] [address] * ENDOSCOPY, COLON, SCREENING (01/25/2016 9:18 AM ELEVATOR BUILDER) Report Endoscopy POC _ Patient Name: Pola [...] colon cancer. Procedure Code(s): --- Professional --- 09636, Colonoscopy, flexible; diagnostic, including collection of specimen(s) by brushing or washing, when performed (separate procedure) --- Technical --- 74814, Colonoscopy, flexible; diagnostic, including collection of specimen(s) [...] or abscess without bleeding CPT copyright 2015 [employer]. All rights reserved. The codes documented in this report are preliminary and upon oracle applications developer review may be revised to meet current compliance requirements. Nikita Fraser MD 01/25/2016 9:58:01 AM This report has been signed electronically. Number of Addenda: 0 Note Initiated On: 01/25/2016 9:18 AM [facility] ENDOSCOPY 01/25/2016 9:18 AM ELEVATOR BUILDER Nikita Fraser MD GI PROCEDURE ORDERAB LES [facility] ENDOSCOPY * HEPATITIS C ANTIBODY (11/30/2012 12:54 PM CDT) Hepatitis C Antibody <0.1 0.0 - 0.9 s/co ratio [facility] INSURANCE BILL Comment: Negative: < 0.8 Indeterminate 0.8 - 0.9 Positive: > 0.9 . In order to reduce the incidence of a false positive result, the CDC recommends that all s/co ratios between 1.0 and 10.9 be confirmed by a more specific supplemental or PCR testing. [facility] offers HCV Ab w/Reflex to Verification test #[id number]. Blood specimen (specimen) BLOOD SPECIMEN / Unknown 11/30/2012 12:54 PM CDT 11/30/2012 7:02 PM CDT Narrative Resulting Agency Comment [address] [phone] José Ashton MD LAB - CHEMISTRY [facility] from Last 3 Months or Most Recently Relevant to Health Maintenance Advance Directives Documents on File Type Date Recorded Patient [facility] Shift Lead Expl anation Adv Directive/Living Will/POA 02/20/2013 9:49 [...] 5:18 PM 2010 11:41 PM Care Teams Cost Report Clerk Relationship Specialty Start Date End Date Mercedes Collins MD [address] [place] [address] PCP - General Internal Medicine 05/17/19 Mercedes Collins MD [address] [place] [address] [facility] [place] 02/16/23 Chucky Menendez MD [facility] [address] [place] [address] Swim Coach Pulmonary Disease 09/20/15 Wade Zelaya Jr., MD [facility] [facility] [address] [place] [address] Rheumatology 12/01/16 Danielle Reina MD [address] [place], [place] [phone] Orthopedic Surgery 12/01/16 [place] [address] [place] [address] Internal Medicine 10/29/22
--- OUTSIDE RECORDS SUMMARY | 2024-04-24 19:38 | XMS_ITS | Patient Health Summary ---
Author Organization [facility] Address [address] [place] [address] Care Team Providers Care [place] [facility] Name Role Phone Chucky Menendez MD Unavailable [phone] Nathalie Guzman MD, Wade Lopes Unavailable [phone] Danielle Reina MD Unavailable [phone] Mercedes Collins MD Primary Care Provider [phone] Ramsey Barbosa MD Unavailable [phone] Mercedes Collins MD Unavailable [phone] Note from [facility],non-owned Affiliates and Associated Physician Practices is amultiple site organization consisting of ambulatory clinics and hospital sitesin [place], [place], [place] and [place]. This disclosure is being madepursuant to the Care Everywhere program and may not contain all information available regarding this patient. Last updated 17.[facility] Allergies * Ciprofloxacin Hydrochloride(Urticaria,Diarrhea) * Ciprofloxacin(Rash,Urticaria,Unknown) -High Criticality * Hmg-Coa-R Inhibitors(Myalgias,Unknown) -Medium Criticality * Leflunomide(GI Discomfort) -High Criticality * Levofloxacin(Unknown) -High Criticality * Simvastatin(Other,Unknown) -Low Criticality Medications * Be aware that medications may not be up to date on this document. Alwaysverify current medications with the patient. * calcium-vitamin D (OS-SHANNON 250 PLUS D 125 UNITS) 250-125 MG-UNIT tablet Take 1 (one) tablet by mouth daily with food * folic acid (FOLVITE) 1 MG tablet(Started 07/08/2016) Take 1 (one) tablet by mouth 2 times daily 1 refill left * fexofenadine (THERESE) 180 MG tablet Take 1 (one) tablet by mouth once daily as needed * lancets(Started 03/04/2017) Use 1 Each once daily Delica 3 refills remaining * prednisoLONE acetate (PRED FORTE) 1 % ophthalmic suspension(Started 01/14/2018) Instill 1 (one) drop into both eyes as needed * albuterol (PROVENTIL;VENTOLIN) (2.5 MG/3ML) 0.083% nebulizer solution(Started 06/29/2020) Inhale 2.5 (two and one-half) mg by mouth every 6 hours as needed for Shortness of Breath or Wheezing 5 refills by 06/29/2021 * spironolactone (ALDACTONE) 25 MG tablet(Started 10/29/2020) 0.5 (one-half) tablet * gabapentin (NEURONTIN) 300 MG capsule(Started 02/01/2021) Take 1 (one) capsule by mouth nightly as needed (pain) * verapamil CR (ISOPTIN-SR) 180 MG tablet(Started 08/14/2021) Take 2 (two) tablets by mouth once daily * ammonium lactate (Lac-Hydrin) 12 % cream(Started 12/10/2021) Apply to the feet and toenails at least once a day. Do not apply between the toes. Reasons: Abnormal Dryness of Skin 5 refills by 12/10/2022 * inFLIXimab (Remicade) injection 1,100 (one thousand one hundred) mg by Intravenous route * Multiple Vitamins-Minerals (Super Thera Maria Luz M) TABS Take 1 (one) tablet by mouth once daily * albuterol (Proventil;Ventolin) (2.5 MG/3ML) 0.083% nebulizer solution(Started 07/01/2022) Inhale 2.5 (two and one-half) mg by mouth every 4 hours as needed for Shortness of Breath 5 refills by 07/01/2023 * Methotrexate, PF, (Rasuvo) 7.5 MG/0.15ML(Started 07/11/2022) Inject 7.5 mg subcutaneously every 7 days * benzonatate (Tessalon) 200 MG capsule(Started 01/13/2023) Take 1 (one) capsule by mouth 3 times daily as needed for Cough 1 refill by 01/13/2024 * busPIRone (Buspar) 5 MG tablet(Started 01/16/2023) TAKE 1 TABLET BY MOUTH THREE TIMES A DAY 1 refill by 01/16/2024 * albuterol HFA (Proventil; Ventolin; Proair) 108 (90 Base) MCG/ACT inhaler (Started 02/17/2023) INHALE 2 PUFFS BY MOUTH EVERY 4 HOURS NEEDED 3 refills by 02/17/2024 * ketoconazole (Nizoral) 2 % cream(Started 03/04/2023) Apply to the feet and toes twice a day as needed. Do not apply between the toes. Reasons: Athlete'sFoot, Eczema 2 refills by 03/03/2024 * diclofenac sodium (Voltaren) 1 % gel(Started 03/04/2023) Apply 4 (four) g to affected area 4 times daily Apply to foot as needed for pain Reasons: Joint Damage causing Pain and Loss of Function 5 refills by 03/03/2024 * umeclidinium-vilanterol (Anoro Ellipta) 62.5-25 MCG/ACT inhaler(Started 05/18/2023) Inhale 1 (one) puff by mouth once daily 11 refills by 05/17/2024 * Lancets (ONETOUCH DELICA PLUS 33G EXTRA FINE LANCET)(Started 05/21/2023) Use 1 Each once daily 5 refills by 05/20/2024 * Blood Glucose Monitoring Suppl (OneTouch Verio) w/Device KIT(Started 05/21/2023) Use 1 Each as directed * blood glucose (CoreXchangeTouch Verio) test strip(Started 05/21/2023) Use 1 (one) strip as directed 11 refills by 05/20/2024 * ipratropium (Atrovent) 0.03 % nasal spray(Started 06/04/2023) SPRAY 1-2 SPRAYS INTO EACH NOSTRIL 3 TIMES DAILY * fluticasone propionate (Flonase) 50 MCG/ACT nasal spray(Started 10/07/2023) [place] 1 (one) spray into each nostril 2 times daily 11 refills by 10/06/2024 * pantoprazole EC (Protonix) 40 MG tablet(Started 10/13/2023) Take 1 (one) tablet by mouth once daily 1 refill by 10/12/2024 * rosuvastatin (Crestor) 10 MG tablet(Started 10/13/2023) TAKE 1 TABLET BY MOUTH ONE TIME PER WEEK 3 refills by 10/12/2024 * vibegron (Gemtesa) 75 MG tablet(Started 11/26/2023) Take 1 (one) tablet by mouth once daily 3 refills by 11/25/2024 * nystatin (Mycostatin) 977825 UNIT/GM ointment(Started 11/26/2023) Apply to vulva twice daily 3 refills by 11/25/2024 * Xarelto 20 MG tablet(Started 12/07/2023) TAKE 1 TABLET BY MOUTH EVERY DAY BEFORE DINNER 1 refill by 12/06/2024 * furosemide (Lasix) 20 MG tablet(Started 12/11/2023) TAKE 2 TABLETS BY MOUTH EVERY DAY 1 refill by 12/10/2024 * metFORMIN (Glucophage) 500 MG tablet(Started 01/27/2024) TAKE 2 (TWO) TABLETS BY MOUTH EVERY MORNING AND 1 (ONE) TABLET DAILY WITH DINNER. 3 refills by 01/26/2025 * predniSONE (Deltasone) 5 MG tablet(Started 02/02/2024) TAKE 1 TABLET BY MOUTH EVERY DAY 1 refill by 02/01/2025 * SITagliptin (Januvia) 100 MG tablet(Started 02/03/2024) Take 1 (one) tablet by mouth once daily Reasons: Type 2 Diabetes 1 refill by 02/02/2025 * nitroGLYCERIN (Nitrostat) 0.4 MG tablet(Started 02/16/2024) DISSOLVE 1 (ONE) TABLET UNDER THE TONGUE EVERY 5 MINUTES NEEDED FOR ANGINA * levothyroxine (Synthroid) 88 MCG tablet(Started 03/16/2024) Take 1 (one) tablet by mouth once daily 1 refill by 03/16/2025 * HYDROcodone-acetaminophen ([place]) 5-325 MG tablet(Started 03/25/2024) Take 1 (one) tablet to 2 (two) tablets by mouth 2 times daily Active Problems Problem Noted Date Diagnosed Date Abnormal PFT 08/25/2023 Phlebolith 03/31/2023 Type 2 diabetes mellitus wit h neurologic complication, without long-term current use of insulin 01/01/2023 Diabetes mellitus type 2 without retinopathy 04/2022 Osteopenia 02/22/2022 06/27/2022 Esophageal reflux 12/10/2021 Age-related cataract of both eyes 04/15/2021 History of uveitis 09/02/2020 06/27/2022 COPD (chronic obstructive pulmonary disease) Tachycardia, paroxysmal 05/16/2020 Recurrent pulmonary embolism 04/06/2015 BIJAN (obstructive sleep apnea) 12/30/2013 Exertional angina 03/11/2013 02/05/2023 Hepatic steatosis 03/03/2012 Diverticulosis of colon 07/12/2010 Degeneration of cervical intervertebral disc 11/2010 Rheumatoid arthritis involving multiple sites Restrictive lung disease 10/02/2009 Hypothyroidism 10/02/2009 HLD (hyperlipidemia) 10/02/2009 HTN (hypertension) Chronic diastolic heart failure Resolved Problems Problem Noted Date Diagnosed Date Resolved Date Diabetic neuropathy 04/25/2021 01/02/20 23 Controlled substance agreement signed 11/20/2020 01/01/2023 Fever of unknown origin 07/14/202012/17 Leukocytosis 07/14/2020 04/25/2021 Tachypnea 07/01/2020 01/01/2023 Statin intolerance 05/16/2020 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 01/01/2023 History of diabetes mellitus 04/05/2019 01/01/2023 Morbid (severe) obesity due to excess calories 04/05/2019 10/13/2023 Pre-diabetes 12/01/2016 01/01/2023 Pulmonary embolism 01/04/2015 6 Shortness of breath 11/09/2014 12/02/19 17 Pleuritic chest pain 11/09/2014 017 Pulmonary embolus 04/20/2013 04/06/2015 Epigastric pain 02/02/2012 12/01/2016 Abdominal pain, generalized 11/01/2008 01/20/2018 Nausea and vomiting 11/01/2008 12/02/19 17 Screening for condition 11/01/200812/17 Immunizations * INFLUENZA VACCINE, TRIV. 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 Pulse 102 02/03/2024 1:14 PM GRADES 1 THRU 5 TEACHER Temperature 36.7 C (98.1 F) 02/03/2024 1:14 PM GRADES 1 THRU 5 TEACHER Respiratory Rate 18 01/21/2023 4:54 PM GRADES 1 THRU 5 TEACHER Oxygen Saturation 99% 02/03/2024 1:14 PM GRADES 1 THRU 5 TEACHER Inhaled Oxygen Concentration 21% 07/18/2020 7 :57 AM CDT Weight 106.7 kg (235 lb 3.2 oz) 02/03/2024 1:14 PM GRADES 1 THRU 5 TEACHER Height 175.3 cm (5' 9.02 ) 02/03/2024 1:14 PM CS T Body Mass Index 34.72 02/03/2024 1:14 PM 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 1 THRU 5 TEACHER Procedures * HEMOGLOBIN A1C - POINT OF CARE (AMB)(Performed 02/03/2024) Performed for Type 2 diabetes mellitus with diabetic neuropathy, without long- term current use of insulin (HCC) * XR ANKLE LEFT 2VW(Performed 12/17/2023) Performed for Acute left ankle pain * XR TIBIA FIBULA RIGHT 2VW(Performed 12/17/2023) Performed for Pain in right alicea * XR FOOT LEFT 3VW OR MORE(Performed 12/17/2023) Performed for Left foot pain * SURESWAB VAGINOSIS/VAGINITIS PLUS(Performed 11/26/2023) Performed for Candidal vulvovaginitis * MICROALB/CREAT RATIO URINE RANDOM PANEL(Performed 10/17/2023) Performed for Type 2 diabetes mellitus with diabetic neuropathy, without long- term current use of insulin ([facility]) * TSH+FREE T4+FREE T3(Performed 10/17/2023) Performed for Postablative hypothyroidism * VITAMIN D 25-HYDROXY(Performed 10/17/2023) Performed for Vitamin D deficiency * LIPID PROFILE REFLEX LDL DIRECT(Performed 10/17/2023) Performed for Mixed hyperlipidemia * COMPREHENSIVE METABOLIC PANEL(Performed 10/17/2023) Performed for Type 2 diabetes mellitus with diabetic neuropathy, without long- term current use of insulin ([facility]) * CBC W AUTO DIFFERENTIAL(Performed 10/17/2023) Performed for Type 2 diabetes mellitus with diabetic neuropathy, without long- term current use of insulin ([facility]) * XR CERVICAL SPINE 2 OR 3VW(Performed 10/13/2023) Performed for DDD (degenerative disc disease), cervical * MAMMO BILAT SCREENING W HUGO(Performed 10/13/2023) Performed for Encounter for screening mammogram for malignant neoplasm of breast * HEMOGLOBIN A1C - POINT OF CARE (AMB)(Performed 10/13/2023) Performed for Type 2 diabetes mellitus with diabetic neuropathy, without long- term current use of insulin (HCC) * SCAN ONLY HIS OPIOID MED AGREEMENT(Performed 10/13/2023) * VAS BILATERAL VENOUS DUPLEX LE(Performed 05/13/2023) Performed for Left leg swelling * HEMOGLOBIN A1C - POINT OF CARE (AMB)(Performed 05/12/2023) Performed for Type 2 diabetes mellitus with diabetic neuropathy, without long- term current use of insulin ([facility]) * XR TIBIA FIBULA LEFT 2VW(Performed 03/24/2023) Performed for Nodule of skin of left lower leg * CARDIAC EKG ORDER(Performed 01/22/2023) * B-TYPE NATRIURETIC PEPTIDE(Performed 01/21/2023) * TROPONIN-I HIGH SENSITIVE BASELINE + 1HR(Performed 01/21/2023) * COMPREHENSIVE METABOLIC PANEL(Performed 01/21/2023) * CBC W AUTO DIFFERENTIAL(Performed 01/21/2023) * SARS-COV-2 (COVID-19)+INFLU A+B PCR RAPID(Performed 01/21/2023) * EKG 12-LEAD(Performed 01/21/2023) Performed for Shortness of breath * XR CHEST 2VW(Performed 01/21/2023) Performed for Cough, unspecified type * XR KNEE RIGHT 3VW(Performed 01/01/2023) Performed for Acute pain of right knee * HEMOGLOBIN A1C - POINT OF CARE (AMB)(Performed 01/01/2023) Performed for History of diabetes mellitus * ERYTHROCYTE SEDIMENTATION RATE(Performed 10/08/2022) Performed for Rheumatoid arthritis involving multiple sites with positive rheumatoid factor (HCC) * C-REACTIVE PROTEIN(Performed 10/08/2022) Performed for Rheumatoid arthritis involving multiple sites with positive rheumatoid factor (HCC) * COMPREHENSIVE METABOLIC PANEL(Performed 10/08/2022) Performed for Palpitation, Night sweats * IRON + TIBC + FERRITIN(Performed 10/08/2022) Performed for Palpitation, Night sweats * TSH+FREE T4+FREE T3(Performed 10/08/2022) Performed for Palpitation, Night sweats * MAGNESIUM BLOOD(Performed 10/08/2022) Performed for Palpitation * HEMOGLOBIN A1C - POINT OF CARE (AMB)(Performed 10/07/2022) Performed for Pre-diabetes * CARDIAC EKG ORDER(Performed 10/07/2022) * VITAMIN D 25-HYDROXY(Performed 07/21/2022) Performed for Vitamin D deficiency * TSH+FREE T4+FREE T3(Performed 07/21/2022) Performed for Postablative hypothyroidism * MICROALB/CREAT RATIO URINE RANDOM PANEL(Performed 07/21/2022) Performed for 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HCC) * LIPID PROFILE REFLEX LDL DIRECT(Performed 07/21/2022) Performed for 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HCC) * HEMOGLOBIN A1C(Performed 07/21/2022) Performed for 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HCC) * COMPREHENSIVE METABOLIC PANEL(Performed 07/21/2022) Performed for Rheumatoid arthritis involving multiple sites with positive rheumatoid factor (HCC), Chronic diastolic heart failure (HCC), Mixed hyperlipidemia, Diverticulosis of colon, Hepatic steatosis, Primary hypertension, Postablative hypothyroidism, BIJAN (obstructive sleep apnea), Restrictive lung disease, Chronic obstructive pulmonary disease, unspecified COPD type (HCC), Recurrent pulmonaryembolism (HCC), Tachycardia, paroxysmal (HCC), Controlled substance agreement signed, Diabetic polyneuropathy associated with drug or chemical induced diabetes mellitus (HCC), Pre-diabetes * CBC W AUTO DIFFERENTIAL(Performed 07/21/2022) Performed for Rheumatoid arthritis involving multiple sites with positive rheumatoid factor (HCC), Chronic diastolic heart failure (HCC), Mixed hyperlipidemia, Diverticulosis of colon, Hepatic steatosis, Primary hypertension, Postablative hypothyroidism, BIJAN (obstructive sleep apnea), Restrictive lung disease, Chronic obstructive pulmonary disease, unspecified COPD type (HCC), Recurrent pulmonaryembolism (HCC), Tachycardia, paroxysmal (HCC), Controlled substance agreement signed, Diabetic polyneuropathy associated with drug or chemical induced diabetes mellitus (HCC), Pre-diabetes * XR CHEST 2VW(Performed 07/04/2022) Performed for COVID-19 * EYE EXAM(Performed 06/13/2022) * MAMMO BILAT SCREENING W HUGO(Performed 01/21/2022) Performed for Visit for screening mammogram * HEMOGLOBIN A1C - POINT OF CARE (AMB)(Performed 09/04/2021) Performed for 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HCC) * SCAN ONLY HIS OPIOID MED AGREEMENT(Performed 09/04/2021) * MICROALB/CREAT RATIO URINE RANDOM PANEL(Performed 04/20/2021) Performed for Proteinuria, unspecified type, Lymphocytosis * COMP MET PANEL (EXTERNAL RESULT ENTRY)(Performed 04/20/2021) * CBC W DIFF (EXTERNAL RESULT ENTRY)(Performed 04/20/2021) * LAB RESULTS ORDER(Performed 04/20/2021) * HEMOGLOBIN A1C - POINT OF CARE (AMB)(Performed 03/01/2021) Performed for Type 2 diabetes mellitus without complication, without long-term current use of insulin (HCC) * MAMMO BILAT SCREENING W HUGO(Performed 01/22/2021) Performed for Screening mammogram, encounter for * CULTURE URINE(Performed 12/20/2020) Performed for UTI symptoms * DC INSERT NON-INDWELLING BLADDER(Performed 12/18/2020) Performed for UTI symptoms * TSH+FREE T4+FREE T3(Performed 12/15/2020) Performed for Postablative hypothyroidism * BASIC METABOLIC PANEL (CALCIUM TOTAL)(Performed 12/15/2020) Performed for 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HCC), Chronic obstructive pulmonary disease, unspecified COPD type (HCC), Chronic diastolic heart failure (HCC), Mixed hyperlipidemia, Primary hypertension, Postablative hypothyroidism, Restrictive lung disease, Rheumatoid arthritis involving multiple sites with positive rheumatoid factor (HCC), Tachycardia, paroxysmal (HCC) * CBC W AUTO DIFFERENTIAL(Performed 12/15/2020) Performed for 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HCC), Chronic obstructive pulmonary disease, unspecified COPD type (HCC), Chronic diastolic heart failure (HCC), Mixed hyperlipidemia, Primary hypertension, Postablative hypothyroidism, Restrictive lung disease, Rheumatoid arthritis involving multiple sites with positive rheumatoid factor (HCC), Tachycardia, paroxysmal (HCC) * LIPID PROFILE(Performed 12/15/2020) Performed for Mixed hyperlipidemia * MICROALB/CREAT RATIO URINE RANDOM PANEL(Performed 12/15/2020) Performed for 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HCC), Chronic obstructive pulmonary disease, unspecified COPD type (HCC), Chronic diastolic heart failure (HCC), Mixed hyperlipidemia, Primary hypertension, Postablative hypothyroidism, Restrictive lung disease, Rheumatoid arthritis involving multiple sites with positive rheumatoid factor (HCC), Tachycardia, paroxysmal (HCC) * DC INSERT NON-INDWELLING BLADDER(Performed 11/21/2020) Performed for Urinary urgency, OAB (overactive bladder), Incomplete bladder emptying * URINALYSIS AUTO - POINT OF CARE (AMB) SLU(Performed 11/21/2020) Performed for Urinary urgency, Other urinary incontinence * URINALYSIS W/MICROSCOPIC NO CULTURE(Performed 11/21/2020) * HEMOGLOBIN A1C - POINT OF CARE (AMB)(Performed 11/20/2020) Performed for 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HCC) * PAP IMAGE-GUIDED W HPV(Performed 11/02/2020) Performed for Well woman exam with routine gynecological exam * HPV DETECTION HIGH RISK MELINDA(Performed 11/02/2020) Performed for Well woman exam with routine gynecological exam * US RETROPERITONEAL COMPLETE(Performed 08/01/2020) Performed for Hematuria, unspecified type * REF LAB-SPECIMEN STATUS REPORT(Performed 08/01/2020) * CULTURE URINE(Performed 08/01/2020) Performed for Hematuria, unspecified type * URINALYSIS - POINT OF CARE(Performed 08/01/2020) Performed for UTI symptoms * CARDIAC RHYTHM STRIP ORDER(Performed 07/23/2020) * RENAL FUNCTION PANEL(Performed 07/18/2020) Performed for Abdominal pain, unspecified abdominal location, Fever of unknown origin * CARDIAC EKG ORDER(Performed 07/17/2020) * QUANTIFERON-TB GOLD PLUS 4-TUBE(Performed 07/17/2020) * ANCA VASCULITIS PANEL(Performed 07/16/2020) * JUAN M BLOOD TITER(Performed 07/16/2020) * JUAN M BLOOD SCREEN W/REFLEX TITER(Performed 07/16/2020) * C-REACTIVE PROTEIN(Performed 07/16/2020) * ERYTHROCYTE SEDIMENTATION RATE(Performed 07/16/2020) * RHEUMATOID FACTOR BLOOD QUANTITATIVE(Performed 07/16/2020) * ECHOCARDIOGRAM 2D WITH DOPPLER(Performed 07/15/2020) Performed for Fever of unknown origin, Rheumatoid arthritis involving multiple sites with positive rheumatoid factor (HCC) * CULTURE BLOOD(Performed 07/15/2020) * CULTURE BLOOD(Performed 07/15/2020) * T4 FREE DIRECT REFLEXED(Performed 07/15/2020) * TSH REFLEX FREE T4(Performed 07/15/2020) * CBC W/O DIFFERENTIAL(Performed 07/15/2020) Performed for Abdominal pain, unspecified abdominal location * RENAL FUNCTION PANEL(Performed 07/15/2020) Performed for Abdominal pain, unspecified abdominal location * HOME CPAP/BIPAP FOR HOSP USE: NOCTURNAL 02(Performed 07/15/2020) * CARDIAC RHYTHM STRIP ORDER(Performed 07/14/2020) * US ABDOMEN COMPLETE(Performed 07/14/2020) Performed for Abdominal pain, RUQ (right upper quadrant) * OT EVAL AND TREAT(Performed 07/14/2020) * HOME CPAP/BIPAP FOR HOSP USE: NOCTURNAL 02(Performed 07/14/2020) * HOME CPAP/BIPAP FOR HOSP USE: NOCTURNAL 02(Performed 07/14/2020) * CT HEAD WO CONTRAST(Performed 07/14/2020) Performed for Fever of unknown origin * XR CHEST 1VW PORTABLE(Performed 07/14/2020) Performed for Fever of unknown origin * URINE MICROSCOPIC ONLY(Performed 07/14/2020) * URINALYSIS REFLEX TO MICROSCOPIC NO CULTURE(Performed 07/14/2020) * CT ABDOMEN PELVIS W CONTRAST(Performed 07/13/2020) Performed for Abdominal pain, unspecified abdominal location * EKG 12-LEAD(Performed 07/13/2020) Performed for Abdominal pain, unspecified abdominal location * LACTIC ACID BLOOD REFLEX TO REPEAT(Performed 07/13/2020) * LIPASE BLOOD(Performed 07/13/2020) * COMPREHENSIVE METABOLIC PANEL(Performed 07/13/2020) * CBC W AUTO DIFFERENTIAL(Performed 07/13/2020) * CARDIAC EKG ORDER(Performed 07/05/2020) * GLUCOSE - POINT OF CARE(Performed 07/04/2020) * GLUCOSE - POINT OF CARE(Performed 07/04/2020) * GLUCOSE - POINT OF CARE(Performed 07/03/2020) * GLUCOSE - POINT OF CARE(Performed 07/03/2020) * HOME O2 EVAL (DESATURATION SCREEN)(Performed 07/03/2020) * GLUCOSE - POINT OF CARE(Performed 07/03/2020) * GLUCOSE - POINT OF CARE(Performed 07/03/2020) * GLUCOSE - POINT OF CARE(Performed 07/02/2020) * GLUCOSE - POINT OF CARE(Performed 07/02/2020) * GLUCOSE - POINT OF CARE(Performed 07/02/2020) * PROCALCITONIN LEVEL(Performed 07/02/2020) Performed for SOB (shortness of breath) * GLUCOSE - POINT OF CARE(Performed 07/02/2020) * HEMOGLOBIN A1C(Performed 07/02/2020) Performed for Pre-diabetes * CT OUTSIDE CONSULTATION(Performed 07/01/2020) Performed for SOB (shortness of breath) * TROPONIN I(Performed 07/01/2020) * TROPONIN I(Performed 07/01/2020) * MAGNESIUM BLOOD(Performed 07/01/2020) * TSH REFLEX FREE T4(Performed 07/01/2020) * B-TYPE NATRIURETIC PEPTIDE(Performed 07/01/2020) * DIFFERENTIAL MANUAL(Performed 07/01/2020) * TROPONIN I(Performed 07/01/2020) * COMPREHENSIVE METABOLIC PANEL(Performed 07/01/2020) * CBC W AUTO DIFFERENTIAL(Performed 07/01/2020) * EKG 12-LEAD(Performed 07/01/2020) Performed for SOB (shortness of breath) * GLUCOSE - POINT OF CARE(Performed 07/01/2020) * SARS-COV-2 (COVID-19) IN HOUSE(Performed 06/18/2020) Performed for Exposure to COVID-19 virus * SARS-COV2 (COVID-19) PANEL (STL)(Performed 06/18/2020) Performed for Exposure to COVID-19 virus * HIV-1 HIV-2 ANTIBODY + HIV P24 AG PANEL(Performed 02/24/2020) Performed for Screening for HIV (human immunodeficiency virus) * HEPATITIS B SURFACE ANTIGEN W RFLX CONFIRMATION(Performed 02/24/2020) Performed for Encounter for screening for other viral diseases , Need for hepatitis B vaccination * MICROALB/CREAT RATIO URINE RANDOM PANEL(Performed 02/24/2020) Performed for 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HCC) * HEMOGLOBIN A1C(Performed 02/24/2020) Performed for 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HCC) * ECHOCARDIOGRAM 2D WITH DOPPLER(Performed 10/17/2019) Performed for Chronic diastolic heart failure (HCC) * HOLTER MONITOR(Performed 04/20/2019) Performed for Tachycardia, paroxysmal (HCC) * HEPATITIS B SURFACE ANTIBODY(Performed 04/06/2019) Performed for Need for hepatitis B screening test * TSH(Performed 04/06/2019) Performed for Postablative hypothyroidism * T4 FREE(Performed 04/06/2019) Performed for Postablative hypothyroidism * MICROALB/CREAT RATIO URINE RANDOM PANEL(Performed 04/06/2019) Performed for 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HCC) * LIPID PROFILE(Performed 04/06/2019) Performed for Mixed hyperlipidemia * BASIC METABOLIC PANEL (CALCIUM TOTAL)(Performed 04/06/2019) Performed for Essential hypertension * CBC W AUTO DIFFERENTIAL(Performed 04/06/2019) Performed for Essential hypertension * EKG 12-LEAD(Performed 04/05/2019) Performed for Tachycardia, paroxysmal (HCC) * MAMMO BILAT SCREENING(Performed 03/29/2019) Performed for Screening mammogram, encounter for * CULTURE URINE(Performed 11/30/2018) Performed for Urinary frequency * URINALYSIS - POINT OF CARE(Performed 11/30/2018) Performed for Urinary frequency * HEMOGLOBIN A1C - POINT OF CARE (AMB)(Performed 11/30/2018) Performed for 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HCC) * HEMOGLOBIN A1C - POINT OF CARE (AMB)(Performed 05/26/2018) Performed for Pre-diabetes * IMAGING/RADIOLOGY/XRAY RESULTS ORDER(Performed 04/14/2018) * US TRANSVAGINAL NON OB(Performed 03/08/2018) Performed for Pelvic pain in female * DC US PELVIC NONOB REAL-TIME IMG COMPLETE(Performed 03/08/2018) Performed for Pelvic pain in female * MAMMO BILAT SCREENING(Performed 01/29/2018) Performed for Visit for screening mammogram * HEMOGLOBIN A1C(Performed 01/22/2018) Performed for Pre-diabetes * LIPID PROFILE(Performed 01/22/2018) Performed for Hypertriglyceridemia * TSH+FREE T4+FREE T3(Performed 01/22/2018) Performed for Postablative hypothyroidism * IMAGING/RADIOLOGY/XRAY RESULTS ORDER(Performed 12/07/2017) * IMAGING/RADIOLOGY/XRAY RESULTS ORDER(Performed 12/07/2017) * MICROALB/CREAT RATIO URINE RANDOM PANEL(Performed 10/26/2017) Performed for H/O diabetes mellitus * HEMOGLOBIN A1C(Performed 10/26/2017) Performed for Prediabetes , BMI 40.0-44.9, adult (HCC) * TSH HI LOW REFLEX FREE T4(Performed 10/26/2017) Performed for Postablative hypothyroidism * CBC W AUTO DIFFERENTIAL(Performed 10/26/2017) Performed for Essential hypertension * BASIC METABOLIC PANEL (CALCIUM TOTAL)(Performed 10/26/2017) Performed for Essential hypertension * LIPID PROFILE(Performed 10/26/2017) Performed for Mixed hyperlipidemia * HEMOGLOBIN A1C - POINT OF CARE (AMB)(Performed 10/15/2017) Performed for Prediabetes * ECHOCARDIOGRAM 2D WITH DOPPLER(Performed 08/10/2017) Performed for Chronic diastolic heart failure (HCC), Recurrent pulmonary embolism (HCC) * EKG 12-LEAD(Performed 07/29/2017) Performed for Chronic diastolic heart failure (HCC), Recurrent pulmonary embolism (HCC) * BASIC METABOLIC PANEL (CALCIUM TOTAL)(Performed 06/10/2017) Performed for Chronic diastolic heart failure (HCC), Palpitations * TSH HI LOW REFLEX FREE T4(Performed 06/10/2017) Performed for Postablative hypothyroidism, Palpitations, Racing heart beat * HEMOGLOBIN A1C - POINT OF CARE (AMB)(Performed 06/10/2017) Performed for Pre-diabetes * C DIFFICILE TOXIN A+B(Performed 02/26/2017) Performed for Diarrhea, unspecified type * CULTURE STOOL PANEL(Performed 02/26/2017) Performed for Diarrhea, unspecified type * MAMMO BILAT SCREENING(Performed 12/29/2016) Performed for Visit for screening mammogram * VAS BILATERAL VENOUS DUPLEX LE(Performed 12/03/2016) Performed for Bilateral leg pain * URINALYSIS - POINT OF CARE(Performed 12/01/2016) Performed for Burning with urination * HEMOGLOBIN A1C - POINT OF CARE (AMB)(Performed 12/01/2016) Performed for Pre-diabetes * TSH (EXTERNAL RESULT ENTRY)(Performed 08/13/2016) * XR CHEST 2VW(Performed 05/13/2016) Performed for Acute URI * COLONOSCOPY SCREEN(Performed 01/25/2016) Performed for Screening for colon cancer * ENDOSCOPY, COLON, SCREENING(Performed 01/25/2016) * MAMMO BILAT SCREENING(Performed 11/19/2015) Performed for Visit for screening mammogram * HOLTER MONITOR(Performed 06/18/2015) Performed for Palpitations * IMAGING/RADIOLOGY/XRAY RESULTS ORDER(Performed 04/14/2015) * MAMMO BILAT SCREENING(Performed 11/09/2014) Performed for Other screening mammogram * B-TYPE NATRIURETIC PEPTIDE(Performed 11/09/2014) Performed for Painful respiration, Abdominal pain, generalized, Nausea and vomiting, Restrictive lung disease, Epigastric pain * LUPUS ANTICOAGULANT PANEL W RFLX(Performed 11/09/2014) Performed for Painful respiration, Abdominal pain, generalized, Nausea and vomiting, Restrictive lung disease, Epigastric pain * D-DIMER(Performed 11/09/2014) Performed for Painful respiration, Abdominal pain, generalized, Nausea and vomiting, Restrictive lung disease, Epigastric pain * COMPREHENSIVE METABOLIC PANEL(Performed 11/09/2014) Performed for Painful respiration, Abdominal pain, generalized, Nausea and vomiting, Restrictive lung disease, Epigastric pain * CBC W AUTO DIFFERENTIAL(Performed 11/09/2014) Performed for Painful respiration, Abdominal pain, generalized, Nausea and vomiting, Restrictive lung disease, Epigastric pain * XR CHEST 2VW(Performed 11/09/2014) Performed for Shortness of breath, Pleuritic chest pain * LAB RESULTS ORDER(Performed 09/05/2014) * PAP IMAGE-GUIDED W HPV(Performed 05/17/2014) * PATHOLOGY/GENETICS HISTORICAL-ONBASE(Performed 05/17/2014) * INFLUENZA A+B ANTIGEN RAPID(Performed 12/23/2013) * TROPONIN I(Performed 12/23/2013) * XR CHEST 2VW(Performed 12/23/2013) Performed for SOB (shortness of breath) * EKG 12-LEAD(Performed 12/23/2013) Performed for SOB (shortness of breath) * DIFFERENTIAL MANUAL(Performed 12/23/2013) * LIPASE BLOOD(Performed 12/23/2013) * PT PTT PANEL(Performed 12/23/2013) * B-TYPE NATRIURETIC PEPTIDE(Performed 12/23/2013) * TROPONIN I(Performed 12/23/2013) * COMPREHENSIVE METABOLIC PANEL(Performed 12/23/2013) * CBC W AUTO DIFFERENTIAL(Performed 12/23/2013) * D-DIMER(Performed 12/23/2013) * CT ANGIO CHEST(Performed 12/12/2013) Performed for SOB (shortness of breath), H/O pulmonary thrombosis * B-TYPE NATRIURETIC PEPTIDE(Performed 12/12/2013) * TROPONIN I(Performed 12/12/2013) * COMPREHENSIVE METABOLIC PANEL(Performed 12/12/2013) * CBC W AUTO DIFFERENTIAL(Performed 12/12/2013) * XR CHEST 2VW(Performed 12/12/2013) Performed for SOB (shortness of breath) * EKG 12-LEAD(Performed 12/12/2013) Performed for SOB (shortness of breath) * CT ABDOMEN PELVIS W CONTRAST(Performed 10/27/2013) Performed for Abdominal pain, generalized, Constipation, Abdominal cramping * CREATININE BLOOD - POINT OF CARE (IP)(Performed 10/27/2013) * COMPLETE PFT W/WO BRONCHODILATOR(Performed 08/11/2013) Performed for Pulmonary embolus (HCC) * CK BLOOD(Performed 04/29/2013) Performed for Hip pain, acute, left * XR CHEST 2VW(Performed 03/14/2013) Performed for Chest pain * CARDIAC RHYTHM STRIP ORDER(Performed 03/07/2013) * PT PTT PANEL(Performed 03/05/2013) * BASIC METABOLIC PANEL (CALCIUM TOTAL)(Performed 03/05/2013) * CBC W AUTO DIFFERENTIAL(Performed 03/05/2013) * HIGH SPECIFICITY ANTIPHOSPHOLIPID ANTIBODY PANEL(Performed 03/05/2013) * LUPUS ANTICOAGULANT PANEL W RFLX(Performed 03/05/2013) * HOMOCYSTEINE BLOOD QUANTITATIVE(Performed 03/05/2013) * PROTHROMBIN [id number] PANEL(Performed 03/05/2013) * FACTOR V LEIDEN MUTATION PANEL(Performed 03/05/2013) * VAS BILATERAL VENOUS DUPLEX LE(Performed 03/04/2013) Performed for Pulmonary embolism (HCC) * PT PTT PANEL(Performed 03/04/2013) * URINALYSIS REFLEX MICROSCOPIC REFLEX CULTURE(Performed 03/04/2013) * CORTISOL BLOOD AM(Performed 03/04/2013) * TSH(Performed 03/04/2013) * CBC W AUTO DIFFERENTIAL(Performed 03/04/2013) * PT PTT PANEL(Performed 03/04/2013) * TROPONIN I(Performed 03/04/2013) * CULTURE BLOOD(Performed 03/04/2013) * TROPONIN I(Performed 03/03/2013) * CT ANGIO CHEST CT ABD PELVIS W(Performed 03/03/2013) Performed for Shortness of breath * XR CHEST 2VW(Performed 03/03/2013) Performed for Shortness of breath * B-TYPE NATRIURETIC PEPTIDE(Performed 03/03/2013) * PTT(Performed 03/03/2013) * PT-INR(Performed 03/03/2013) * COMPREHENSIVE METABOLIC PANEL(Performed 03/03/2013) * CBC W AUTO DIFFERENTIAL(Performed 03/03/2013) * TROPONIN I(Performed 03/03/2013) * EKG 12-LEAD(Performed 03/03/2013) Performed for Shortness of breath * LAB RESULTS ORDER(Performed 02/20/2013) * CARDIAC PROCEDURE ORDER(Performed 02/20/2013) * CARDIAC CATH CONSULT(Performed 02/17/2013) * LAB RESULTS ORDER(Performed 02/15/2013) * NM MYOCARD PERF REST STRESS(Performed 02/11/2013) Performed for Chest pain, SOB (shortness of breath) * ECHOCARDIOGRAM 2D WITH DOPPLER(Performed 02/11/2013) Performed for Chest pain * B-TYPE NATRIURETIC PEPTIDE(Performed 02/01/2013) Performed for Edema * VITAMIN D 25-HYDROXY(Performed 11/30/2012) Performed for Vitamin D deficiency * CBC W AUTO DIFFERENTIAL(Performed 11/30/2012) Performed for Rheumatoid Arthritis (Hcc) * TSH+FREE T4(Performed 11/30/2012) Performed for Hypothyroidism * COMPREHENSIVE METABOLIC PANEL(Performed 11/30/2012) Performed for Medication monitoring encounter * HEPATITIS C ANTIBODY(Performed 11/30/2012) Performed for Need for hepatitis C screening test * CARDIAC EKG ORDER(Performed 11/30/2012) * MAMMO BILAT SCREENING(Performed 10/19/2012) * FL SMALL BOWEL SERIES(Performed 08/03/2012) Performed for Abdominal pain, generalized, Abdominal swelling, generalized, Change in bowel habits * XR CHEST 2VW(Performed 03/02/2012) Performed for Other dyspnea and respiratory abnormality * CARDIAC ECHOCARDIOGRAM COMPLETE ORDER(Performed 01/13/2012) * CARDIAC EKG ORDER(Performed 12/31/2011) * LIPID PROFILE(Performed 12/30/2011) Performed for HLD (hyperlipidemia) * URIC ACID BLOOD(Performed 12/30/2011) Performed for Medication monitoring encounter * ERYTHROCYTE SEDIMENTATION RATE(Performed 12/30/2011) Performed for Rheumatoid arthritis (HCC) * TSH+FREE T4(Performed 12/30/2011) Performed for Hypothyroidism * COMPREHENSIVE METABOLIC PANEL(Performed 12/30/2011) Performed for Dyspnea * CBC W AUTO DIFFERENTIAL(Performed 12/30/2011) Performed for Dyspnea * CT ABDOMEN PELVIS W CONTRAST(Performed 09/26/2011) Performed for RLQ abdominal tenderness, RLQ abdominal pain * LIPASE BLOOD(Performed 09/26/2011) * COMPREHENSIVE METABOLIC PANEL(Performed 09/26/2011) * CBC W AUTO DIFFERENTIAL(Performed 09/26/2011) * CT ABDOMEN W CONTRAST(Performed 02/05/2011) Performed for Abdominal pain, generalized * COMPREHENSIVE METABOLIC PANEL(Performed 01/29/2011) Performed for Abdominal pain, generalized * CBC W AUTO DIFFERENTIAL(Performed 01/29/2011) Performed for Abdominal pain, generalized * ERYTHROCYTE SEDIMENTATION RATE(Performed 01/29/2011) Performed for Abdominal pain, generalized * LIPASE BLOOD(Performed 01/29/2011) Performed for Abdominal pain, generalized * AMYLASE BLOOD(Performed 01/29/2011) Performed for Abdominal pain, generalized * IMAGING/RADIOLOGY/XRAY RESULTS ORDER(Performed 01/20/2011) * T4 FREE(Performed 12/20/2010) Performed for Hypothyroidism * MAGNESIUM BLOOD(Performed 12/20/2010) Performed for Muscle cramp * BASIC METABOLIC PANEL (CALCIUM TOTAL)(Performed 12/20/2010) Performed for Muscle cramp * TSH(Performed 12/20/2010) Performed for Hypothyroidism * NM MYOCARD PERF REST STRESS(Performed 11/29/2010) Performed for Other dyspnea and respiratory abnormality * STRESS TEST LEXISCAN (NUCLEAR)(Performed 11/29/2010) Performed for Dyspnea * T4 FREE(Performed 11/19/2010) Performed for Hypothyroidism * TSH(Performed 11/19/2010) Performed for Hypothyroidism * COMPREHENSIVE METABOLIC PANEL(Performed 11/19/2010) Performed for Medication monitoring encounter * CARDIAC RHYTHM STRIP ORDER(Performed 09/16/2010) * IP CONSULT TO STAFF SUBMARINE WARFARE OFFICER(Performed 09/13/2010) * BASIC METABOLIC PANEL (CALCIUM TOTAL)(Performed 09/13/2010) * CT FACIAL BONES WO CONTRAST(Performed 09/12/2010) Performed for TMJ disorder * CULTURE URINE(Performed 09/12/2010) * IP CONSULT TO CASE MANAGEMENT(Performed 09/12/2010) * IP CONSULT TO PHYSICAL MED AND REHAB(Performed 09/12/2010) * MRI BRAIN WO CONTRAST(Performed 09/12/2010) Performed for CVA (cerebral infarction) * IP CONSULT TO NEUROLOGY(Performed 09/12/2010) * MRI ANGIO NECK WO CONTRAST(Performed 09/12/2010) Performed for CVA (cerebral infarction) * MRI ANGIO BRAIN ARTERIAL WO CONT(Performed 09/12/2010) Performed for CVA (cerebral infarction) * VAS CAROTID DUPLEX BILATERAL(Performed 09/12/2010) Performed for CVA (cerebral infarction) * ECHOCARDIOGRAM 2D WITH DOPPLER(Performed 09/12/2010) Performed for CVA (cerebral infarction) * BASIC METABOLIC PANEL (CALCIUM TOTAL)(Performed 09/12/2010) * LIPID PROFILE(Performed 09/12/2010) * URINALYSIS REFLEX TO MICROSCOPIC NO CULTURE(Performed 09/11/2010) * HEMOGLOBIN A1C(Performed 09/11/2010) * OT EVAL AND TREAT(Performed 09/11/2010) * TROPONIN I(Performed 09/11/2010) * COMPREHENSIVE METABOLIC PANEL(Performed 09/11/2010) * CT HEAD WO CONTRAST(Performed 09/11/2010) Performed for CVA (cerebral infarction) * MYOGLOBIN BLOOD - POINT OF CARE(Performed 09/11/2010) * B-TYPE NATRIURETIC PEPTIDE - POINT OF CARE(Performed 09/11/2010) * CKMB - POINT OF CARE(Performed 09/11/2010) * TROPONIN - POINT OF CARE(Performed 09/11/2010) * PT PTT PANEL(Performed 09/11/2010) * CBC W AUTO DIFFERENTIAL(Performed 09/11/2010) * EKG 12-LEAD(Performed 09/11/2010) Performed for CVA (cerebral infarction) * HELICOBACTER PYLORI UREASE(Performed 07/31/2010) * CT ANGIO ABDOMEN PELVIS(Performed 07/19/2010) Performed for Epigastric pain, Ventral hernia * ENDOSCOPY, COLON, SCREENING(Performed 06/24/2010) * BASIC METABOLIC PANEL (CALCIUM TOTAL)(Performed 03/30/2010) Performed for Chest pain * MAMMO BILAT SCREENING(Performed 03/05/2010) * CT CERVICAL SPINE WO CONTRAST(Performed 02/23/2010) Performed for Neck pain, Neuralgia, Rheumatoid arthritis (HCC) * THYROID PANEL W TSH (TSH,T4,T3 UPTAKE,FTI)(Performed 10/15/2009) * LIPID PROFILE(Performed 10/15/2009) * COMPREHENSIVE METABOLIC PANEL(Performed 10/15/2009) * CBC W AUTO DIFFERENTIAL(Performed 10/15/2009) * CT ANGIO CHEST(Performed 10/08/2009) Performed for Chest Pain * BASIC METABOLIC PANEL (CALCIUM TOTAL)(Performed 10/08/2009) * URINALYSIS - POINT OF CARE(Performed 10/02/2009) Performed for Abdominal Pain, Generalized * CT ABDOMEN WWO PELVIS W CONT(Performed 09/10/2009) Performed for Abdominal Pain, Generalized * CT CHEST W CONTRAST(Performed 08/09/2009) * XR CHEST 2VW(Performed 08/09/2009) * FL SWALLOWING FUNCTION STUDY(Performed 07/18/2009) Performed for Dysphagia * LAB RESULTS ORDER(Performed 05/30/2009) * LAB RESULTS ORDER(Performed 05/28/2009) * RHEUMATOID FACTOR BLOOD QUANTITATIVE(Performed 04/16/2009) Performed for Rheumatoid Arthritis (HCC) * ERYTHROCYTE SEDIMENTATION RATE(Performed 04/16/2009) Performed for Rheumatoid Arthritis (HCC), DJD (Degenerative Joint Disease) of Cervical Spine * JUAN M BLOOD SCREEN W/REFLEX TITER(Performed 04/16/2009) Performed for Rheumatoid Arthritis (HCC) * LIPID PROFILE(Performed 04/16/2009) Performed for Htn (Hypertension) * COMPREHENSIVE METABOLIC PANEL(Performed 04/16/2009) Performed for Rheumatoid Arthritis (HCC), Htn (Hypertension) * CBC W AUTO DIFFERENTIAL(Performed 04/16/2009) Performed for Rheumatoid Arthritis (HCC) * HEMOGLOBIN A1C(Performed 04/08/2008) * PROLACTIN(Performed 04/08/2008) * LH(Performed 04/08/2008) * FSH(Performed 04/08/2008) * CBC W AUTO DIFFERENTIAL(Performed 04/08/2008) * COMPREHENSIVE METABOLIC PANEL(Performed 04/08/2008) * THYROID PANEL W TSH (TSH,T4,T3 UPTAKE,FTI)(Performed 04/08/2008) * LIPID PROFILE(Performed 04/08/2008) * ERYTHROCYTE SEDIMENTATION RATE(Performed 01/25/2008) * TISSUE TRANSGLUTAMINASE AB IGA(Performed 01/25/2008) * FECAL LEUKOCYTES(Performed 01/12/2008) * TISSUE TRANSGLUTAMINASE AB IGA(Performed 01/12/2008) * C DIFFICILE BY PCR(Performed 01/12/2008) * O+P CONVENTIONAL(Performed 01/12/2008) * C DIFFICILE TOXIN A+B(Performed 01/12/2008) * CULTURE STOOL PANEL(Performed 01/12/2008) * GROSS + MICRO EXAM(Performed 12/22/2007) * GROSS + MICRO EXAM(Performed 11/02/2002) Results * HEMOGLOBIN A1C - POINT OF CARE (HgbA1C) (02/03/2024 1:15 PM [facility] 1 THRU 5 TEACHER) Only the most recent of13 resultswithin the time period is included. Hemoglobin A1c POCT 8.4 % [facility] Expiration Date 10/06/[address] [facility] Lot # [id number] [facility] QC Verified Yes Yes [facility] Blood BLOOD SPECIMEN / Unknown 02/03/2024 1:15 PM [facility] 1 THRU 5 TEACHER Mercedes Collins MD LAB - POINT OF CARE ORDERABLES [facility] [address], [address] [phone] * XR Foot Left 3Vw or More (12/17/2023 3:37 PM CDT) Anatomical Region Laterality Modality Ankle / Foot Radiographic Suri ging 12/17/2023 5:20 PM CDT Impressions 12/17/2023 5:25 PM CDT IMPRESSION: 1. No acute findings. 2. Focal advanced degenerative change in the mid tarsals > Interpreting Provider: Devin Hayes MD on 12/17/2023 5:25 PM Narrative 12/17/2023 5:25 PM CDT PROCEDURE: XR FOOT LEFT 3VW OR MORE DATE/TIME OF EXAM: 12/17/2023 3:37 PM CLINICAL INFORMATION: None relevant/not provided if blank. Indication: M79.672: Pain in left foot Additional History: COMPARISON: None. FINDINGS: There is no foot fracture dislocation. However there are significant degenerative changes at the articulation of the talus and calcaneus with the more distal tarsal bones. Joint spaces are narrowed and there are subchondral sclerosis and spur formation. Incidental heel spur. Procedure Note Devin Hayes MD - 12/17/2023 PROCEDURE: XR FOOT LEFT 3VW OR MORE DATE/TIME OF EXAM: 12/17/2023 3:37 PM CLINICAL INFORMATION: None relevant/not provided if blank. Indication: M79.672: Pain in left foot Additional History: COMPARISON: None. FINDINGS: There is no foot fracture dislocation. However there are significant degenerative changes at the articulation of the talus and calcaneus with the more distal tarsal bones. Joint spaces are narrowed and there are subchondral sclerosis and spur formation. Incidental heel spur. IMPRESSION: 1. No acute findings. 2. Focal advanced degenerative change in the mid tarsals > Interpreting Provider: Devin Hayes MD on 12/17/2023 5:25 PM Marbella Giang COMPUTER LAB ASSISTANT-NUCLEAR OPERATIONS SPECIALIST DIAGNOSTIC SURI GING ORDERABLES * XR Ankle Left 2Vw (12/17/2023 3:37 PM CDT) Anatomical Region Laterality Modality Lower Extremity Radiographic Suri ging 12/17/2023 5:32 PM CDT Impressions 12/17/2023 5:33 PM CDT IMPRESSION: 1. No fracture 2. Localized significant osteoarthritis in the mid tarsal bones > Interpreting Provider: Devin Hayes MD on 12/17/2023 5:33 PM Narrative 12/17/2023 5:33 PM CDT PROCEDURE: XR ANKLE LEFT 2VW DATE/TIME OF EXAM: 12/17/2023 3:37 PM CLINICAL INFORMATION: None relevant/not provided if blank. Indication: M25.572: Pain in left ankle and joints of left foot Additional History: COMPARISON: None. FINDINGS: No fracture or dislocation. There is perhaps slight asymmetry to the ankle mortise, wider laterally than medially. However no associated swelling in this region. There are focal advanced osteoarthritic changes in the midfoot particularly at the articulation of the talus and calcaneus with the more distal tarsal bones. Accompanying prominent periarticular spurs. Incidental heel spur. Procedure Note Devin Hayes MD - 12/17/2023 PROCEDURE: XR ANKLE LEFT 2VW DATE/TIME OF EXAM: 12/17/2023 3:37 PM CLINICAL INFORMATION: None relevant/not provided if blank. Indication: M25.572: Pain in left ankle and joints of left foot Additional History: COMPARISON: None. FINDINGS: No fracture or dislocation. There is perhaps slight asymmetry to theankle mortise, wider laterally than medially. However no associated swellingin this region. There are focal advanced osteoarthritic changes in the midfootparticularly at the articulation of the talus and calcaneus with the more distaltarsal bones. Accompanying prominent periarticular spurs. Incidental heelspur. IMPRESSION: 1. No fracture 2. Localized significant osteoarthritis in the mid tarsal bones > Interpreting Provider: Devin Hayes MD on 12/17/2023 5:33 PM Marbella Giang COMPUTER LAB ASSISTANT-NUCLEAR OPERATIONS SPECIALIST DIAGNOSTIC SURI GING ORDERABLES * XR Tibia Fibula Right 2Vw (12/17/2023 3:37 PM CDT) Anatomical Region Laterality Modality Lower Extremity Radiographic Suri ging 12/17/2023 5:33 PM CDT Impressions 12/17/2023 5:35 PM CDT IMPRESSION: 1. No fracture 2. Anterior alicea swelling 3. Chronic lateral knee primary osteoarthritis > Interpreting Provider: Devin Hayes MD on 12/17/2023 5:35 PM Narrative 12/17/2023 5:35 PM CDT PROCEDURE: XR TIBIA FIBULA RIGHT 2VW DATE/TIME OF EXAM: 12/17/2023 3:37 PM CLINICAL INFORMATION: None relevant/not provided if blank. Indication: M79.661: Pain in right lower leg Additional History: [place] pain after fall COMPARISON: None. Findings: There is nonfocal swelling over the anterior alicea. No gas in the soft tissues or evidence of laceration. The tibia and fibula are intact. Chronic osteoarthritic changes in the medial compartment of the knee. Procedure Note Devin Hayes MD - 12/17/2023 PROCEDURE: XR TIBIA FIBULA RIGHT 2VW DATE/TIME OF EXAM: 12/17/2023 3:37 PM CLINICAL INFORMATION: None relevant/not provided if blank. Indication: M79.661: Pain in right lower leg Additional History: [place] pain after fall COMPARISON: None. Findings: There is nonfocal swelling over the anterior alicea. No gas in the soft tissues or evidence of laceration. The tibia and fibula are intact. Chronic osteoarthritic changes in the medial compartment of the knee. IMPRESSION: 1. No fracture 2. Anterior alicea swelling 3. Chronic lateral knee primary osteoarthritis > Interpreting Provider: Devin Hayes MD on 12/17/2023 5:35 PM Marbella Giang COMPUTER LAB ASSISTANT-NUCLEAR OPERATIONS SPECIALIST DIAGNOSTIC SURI GING ORDERABLES * SUREAB VAGINOSIS/VAGINITIS PLUS (11/26/2023 12:15 PM CDT) Sureswab Bacterial Vaginosis NEGATIVE NEGATIVE [facility] Kristina species NOT DETECTED NOT DETECTED [facility] Kristina glabrata MELINDA NOT DETECTED NOT DETECTED [facility] Comment: Kristina species C. albicans, C. tropicalis, C. parapsilosis, and/or C. dubliniensis can be detected, but not differentiated, in the Kristina spp. result. Trichomonas vaginalis TMA NOT DETECTED NOT DETECTED [facility] Chlamydia trachomatis RNA NOT DETECTED NOT DETECTED [facility] GC RNA NOT DETECTED NOT DETECTED [facility] Comment: For additional information, please refer to [email or web address] Response.Get Me Listed/faq/VKS310 (This link is being provided for information/ educational purposes only.) Test Performed at: [facility] [address] [place] [address] EMBER RIVERA MD Microbiology VAGINAL SWAB / Unknown 11/26/2023 12:15 PM CDT 11/27/2023 6:47 AM CDT Peterson Nance MD LAB - MICROBIOLOGY O RDERABLES [facility] [id number] [place] [address] * LIPID PROFILE REFLEX LDL DIRECT (10/17/2023 10:25 AM CDT) Only the most recent of2 resultswithin the time period is included. Cholesterol 186 100 - 199 mg/dL [facility] INSURANCE BILL Triglycerides 147 0 - 149 mg/dL [facility] INSURANCE BILL HDL Cholesterol 67 >39 mg/dL [facility] INSURANCE BILL VLDL Calculated 25 5 - 40 mg/dL [facility] INSURANCE BILL LDL Calculated 94 0 - 99 mg/dL [facility] INSURANCE BILL Comment LDL Calc NOT AVAILABLE [facility] INSURANCE BILL Comment:Result cannot be obt ained for this observation. Cholesterol/HDL Ratio 2.8 0.0 - 4.4 ratio [facility] INSURANCE BILL Comment: T. Chol/HDL Ratio Men Women 1/2 Avg.Risk 3.4 3.3 Avg.Risk 5.0 4.4 2X Avg.Risk 9.6 7.1 3X Avg.Risk 23.4 11.0 LDL/HDL Ratio 1.4 0.0 - 3.2 ratio [facility] INSURANCE BILL Comment: LDL/HDL Ratio Men Women 1/2 Avg.Risk 1.0 1.5 Avg.Risk 3.6 3.2 2X Avg.Risk 6.2 5.0 3X Avg.Risk 8.0 6.1 FASTING Blood BLOOD SPECIMEN / Unknown 10/17/2023 10:25 AM CDT 10/17/2023 Narrative Resulting Agency Comment Lab Testing performed at: [facility] [address] [facility] [phone] Mercedes Collins MD LAB - CHEMISTRY RORY [place] [facility] Organization Address City/State/ZIP Co de Phone Number [facility] INSURANCE BILL [address] [place] [address] * TSH+FREE T4+FREE T3 (10/17/2023 10:25 AM CDT) Only the most recent of5 resultswithin the time period is included. TSH 3.400 0.450 - 4.500 uIU/mL [facility] INSURANCE BILL T3 Free 2.4 2.0 - 4.4 pg/mL [facility] INSURANCE BILL T4 Free 1.09 0.82 - 1.77 ng/dL [facility] INSURANCE BILL Comment:FASTING Blood BLOOD SPECIMEN / Unknown 10/17/2023 10:25 AM CDT 10/17/2023 Narrative Resulting Agency Comment Lab Testing performed at: [facility] [address] [place] [address] [phone] Mercedes Collins MD LAB - CHEMISTRY ORDE RABLES Performing Organization Address [facility] de Phone Number [facility] INSURANCE BILL [address] [place] [address] * MICROALB/CREAT RATIO URINE RANDOM PANEL (10/17/2023 10:25 AM CDT) Only the most recent of7 resultswithin the time period is included. Creatinine Urine 57.6 Not Estab. mg/dL [facility] [...] Resulting Agency Comment Lab Testing performed at: [facility] [address] [place] [address] [phone] Mercedes Collins MD LAB - URINE CHEMISTR Y ORDERABLES Performing Organization Address [facility] de Phone Number [facility] INSURANCE BILL [address] [place] [address] * VITAMIN D 25-HYDROXY (10/17/2023 10:25 AM CDT) Only the most recent of3 resultswithin the time period is included. Vitamin D, 25 Hydroxy 35.8 30.0 - 100.0 ng/mL [facility] INSURANCE BILL Comment: Vitamin D deficiency has been defined by the [employer] and an Endocrine Society practice guideline as a level of serum 25-OH vitamin D less than 20 ng/mL (1,2). The Endocrine Society went on to further define vitamin D insufficiency as a level between 21 and 29 ng/mL (2). 1. IOM ([place] of [employer]). 2010. Dietary reference intakes for calcium and D. [place]: The National Academies Press. 2. Jefferson MF, Noemi LESTER, Ryan ORNELAS, et al. Evaluation, treatment, and prevention of vitamin D deficiency: an Endocrine Society clinical practice guideline. JCEM. 2010; 96(7):1911-30. FASTING Blood BLOOD SPECIMEN / Unknown 10/17/2023 10:25 AM CDT 10/17/2023 Narrative Resulting Agency Comment Lab Testing performed at: [facility] [address] [facility] [phone] Mercedes Collins MD LAB - CHEMISTRY RORY DALTON [facility] INSURANCE BILL [address] [place] [address] * (ABNORMAL) CBC WITH DIFFERENTIAL (10/17/2023 10:25 AM CDT) Only the most recent of22 resultswithin the time period is included. WBC 9.1 3.4 - 10.8 x10E3/uL [facility] INSURANCE BILL RBC 5.02 3.77 - 5.28 x10E6/uL [facility] INSURANCE BILL Hemoglobin 14.0 11.1 - 15.9 g/dL [facility] INSURANCE BILL Hematocrit 43.3 34.0 - 46.6 % [facility] INSURANCE BILL MCV 86 79 - 97 fL [facility] INSURANCE BILL MCH 27.9 26.6 - 33.0 pg [facility] INSURANCE BILL MCHC 32.3 31.5 - 35.7 g/dL [facility] INSURANCE BILL RDW 12.7 11.7 - 15.4 % [facility] INSURANCE BILL Platelet Count 349 150 - 450 x10E3/uL [facility] INSURANCE BILL Granulocytes % 52 Not Estab. % [facility] INSURANCE BILL Lymphocytes % 36 Not Estab. % [facility] INSURANCE BILL Monocytes % 10 Not Estab. % [facility] INSURANCE BILL Eosinophils % 1 Not Estab. % [facility] INSURANCE BILL Basophils % 1 Not Estab. % [facility] INSURANCE BILL Immature Cells NOT AVAILABLE [facility] INSURANCE BILL Comment:Result cannot be obt ained for this observation. Granulocytes Absolute 4.7 1.4 - 7.0 x10E3/uL [facility] INSURANCE BILL Lymphocytes Absolute 3.3(H) 0.7 - 3.1 x10E3/uL [facility] INSURANCE BILL Monocytes Absolute 0.9 0.1 - 0.9 x10E3/uL [facility] INSURANCE BILL Eosinophils Absolute 0.1 0.0 - 0.4 x10E3/uL [facility] INSURANCE BILL Basophils Absolute 0.1 0.0 - 0.2 x10E3/uL [facility] INSURANCE BILL Immature Granulocytes 0 Not Estab. % [facility] INSURANCE BILL Immature Granulocytes Absolute 0.0 0.0 - 0.1 x10E3/uL [facility] INSURANCE BILL nRBC NOT AVAILABLE [facility] INSURANCE BILL Comment:Result cannot be obt ained for this observation. Comment Hematology NOT AVAILABLE [facility] INSURANCE BILL Comment: FASTING Result cannot be obtained for this observation. Blood BLOOD SPECIMEN / Unknown 10/17/2023 10:25 AM CDT 10/17/2023 Narrative Resulting Agency Comment Lab Testing performed at: [facility] [address] [facility] [phone] Mercedes Collins MD LAB - HEMATOLOGY ORD ERABLES [facility] INSURANCE BILL [address] [place] [address] * (ABNORMAL) COMPREHENSIVE METABOLIC PANEL (10/17/2023 10:25 AM CDT) Only the most recent of19 resultswithin the time period is included. 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 Indication: M50.30: Other cervical disc degeneration, unspecified cervical region Additional History: COMPARISON: None. FINDINGS: The C1 and C2 vertebral bodies are posteriorly fused with screws, rods and cerclage wires. Alignment appears normal. No evidence of hardware failure. Scattered degenerative disc disease between C3 and C6. Small anterior spurs. No significant posterior spurs. Procedure Note Devin Hayes MD - 10/13/2023 PROCEDURE: XR CERVICAL SPINE 2 OR 3VW DATE/TIME OF EXAM: 10/13/2023 3:23 PM CLINICAL INFORMATION: None relevant/not provided if blank. Indication: M50.30: Other cervical disc degeneration, unspecifiedcervical region Additional History: COMPARISON: None. FINDINGS: The C1 and C2 vertebral bodies are posteriorly fused with screws, rodsand cerclage wires. Alignment appears normal. No evidence of hardware failure. Scattered degenerative disc disease between C3 and C6. Small anterior spurs. No significant posterior spurs. 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 Anatomical Region Laterality Modality Breast Bilateral Mammography [...] SCAN ONLY HIS OPIOID MED AGREEMENT (10/13/2023) Only the most recent of2 resultswithin the time period is included. 10/13/2023 Narrative 10/13/2023 Ordered by an unspecified provider. Scanned Document SCANNING ONLY * VAS BILATERAL VENOUS DUPLEX LE (05/13/2023 11:38 AM CDT) Only the most recent of3 resultswithin the time period is included. Anatomical Region Laterality Modality Lower Extremity Ultrasound 05/13/2023 11:1 2 AM CDT Narrative Procedure Note Samir Love MD - 05/13/2023 [place] [address] Lower Extremity Venous Ultrasound Report Pat.Name: POLA TURNER Pat.ID: [id number] .Date: 05/13/2023 Refer.MD: Mercedes Collins Exam Time: 11:12:00 AM Study Type:LE Venous Age: 8 1960,62Y Sex: FEMALE Sonogrphr: Lula Monreal RVT, [facility] Pat. Stat.:Outpatient ICD - 9: m79.89 CPT - 4: 49956 Reason for Study: Swelling -Leg, bilateral History / Clinical: Hypertension, Pulmonary Emboli Procedures: Lower Extremity Venous - Bilateral Race: 2 Visit ID: [id number] ++++++++++++++++++++++++++++++++++++ SUMMARY: ++++++++++++++++++++++++++++++++++++ No evidence of deep venous thrombosis in the bilateral lower extremities. ++++++++++++++++++++++++++++++++++++ FINDINGS: ++++++++++++++++++++++++++++++++++++ Procedure: Venous duplex imaging of both lower extremities was performed using color flow and spectral Doppler analysis. Study Quality: Technically difficult exam due to body habitus. Bilateral: All vessels seen appear patent and compressible. There was spontaneous and phasic flow seen in all the proximal major veins of both lower extremities. Appropriate augmentation with distal compression. No evidence of reflux with proximal compression. Suboptimal visualization of calf veins due to swelling. Signed 05/13/2023 05:16 PM Tomás Love MD Mercedes Collins MD VASCULAR LAB ORDERAB LES * XR TIBIA FIBULA LEFT 2VW (03/24/2023 2:54 PM GRADES 1 THRU 5 TEACHER) Anatomical Region Laterality Modality Lower Extremity Radiographic Suri ging 03/25/2023 10:0 9 AM GRADES 1 THRU 5 TEACHER Narrative 03/25/2023 10:50 AM GRADES 1 THRU 5 TEACHER PROCEDURE: XR TIBIA FIBULA LEFT 2VW, DATE/TIME OF EXAM: 03/24/2023 2:54 PM, LOCATION [facility] INDICATION: R22.42: Localized swelling, mass and lump, left lower limb. LEFT TIBIA FIBULA 2 VIEW HISTORY: Nodule. FINDINGS: Corresponding to a palpable abnormality is a small calcified lesion within the mid anterolateral leg measuring 0.4 cm. The finding likely represents a small phlebolith. There is degenerative change of the knee. The ankle joint is normal. The osseous structures are otherwise normal. DIAGNOSIS: Small calcified nodule corresponds to the patient's palpable abnormality and like representing a phlebolith. Edited by Teresa Cornell on 03/25/2023 10:41 AM > Interpreting Provider: José Miguel Garcia MD on 03/25/2023 10:50 AM Procedure Note José Miguel Garcia MD - 03/25/2023 PROCEDURE: XR TIBIA FIBULA LEFT 2VW, DATE/TIME OF EXAM: 03/24/2023 2:54PM, LOCATION [facility] INDICATION: R22.42: Localized swelling, mass and lump, left lower limb. LEFT TIBIA FIBULA 2 VIEW HISTORY: Nodule. FINDINGS: Corresponding to a palpable abnormality is a small calcified lesionwithin the mid anterolateral leg measuring 0.4 cm. The finding likely representsa small phlebolith. There is degenerative change of the knee. The ankle joint is normal. The osseous structures are otherwise normal. DIAGNOSIS: Small calcified nodule corresponds to the patient's palpable abnormality and like representing a phlebolith. Edited by Teresa Cornell on 03/25/2023 10:41 AM > Interpreting Provider: José Migeul Garcia MD on 03/25/2023 10:50 AM Gricelda Mckay COMPUTER LAB ASSISTANT-NUCLEAR OPERATIONS SPECIALIST DIAGNOSTIC IMAGING ORDERABLES * CARDIAC EKG ORDER (01/22/2023 5:49 PM GRADES 1 THRU 5 TEACHER) Only the most recent of6 resultswithin the time period is included. Narrative 01/22/2023 5:49 PM GRADES 1 THRU 5 TEACHER Ordered by an unspecified provider. Scanned Document CARDIAC SERVICES ORD ERABLES * TROPONIN-I HIGH SENSITIVE BASELINE + 1HR (01/21/2023 5:52 PM GRADES 1 THRU 5 TEACHER) Troponin I High Sensitive <3 <=14 ng/L 01/21/2023 6:13 PM GRADES 1 THRU 5 TEACHER [facility] Blood BLOOD SPECIMEN / Unknown Venipuncture / Unknown 01/21/2023 5:52 PM GRADES 1 THRU 5 TEACHER 01/21/2023 5:52 PM GRADES 1 THRU 5 TEACHER Paresh Patino PA-C LAB - CHEMISTRY ORD ERABLES [facility] [address] [id number] * B-TYPE NATRIURETIC PEPTIDE (01/21/2023 5:52 PM GRADES 1 THRU 5 TEACHER) Only the most recent of7 resultswithin the time period is included. BNP <10 <=100 pg/mL 01/21/2023 6:16 PM GRADES 1 THRU 5 TEACHER [facility] Blood BLOOD SPECIMEN / Unknown Venipuncture / Unknown 01/21/2023 5:52 PM GRADES 1 THRU 5 TEACHER 01/21/2023 5:52 PM GRADES 1 THRU 5 TEACHER Narrative [facility] - 01/21/2023 6:16 PM GRADES 1 THRU 5 TEACHER A cutoff of 100 pg/mL has been demonstrated to provide the maximal combination of sensitivity, specificity, and negative predictive value for contributing to the diagnosis of congestive heart failure (CHF) only. A B-Type Natriuretic Peptide (BNP) value greater than or equal to 100 pg/mL is consistent with a diagnosis of CHF in the appropriate clinical setting. False positive results are more common in females greater than 75 years of age. Blood concentrations of natriuretic peptides may also be elevated in patients with myocardial infarction and in patients who are candidates for or are undergoing renal dialysis. Paresh Patino PA-C LAB - CHEMISTRY ORD ERABLES Performing Organization Address [facility] Co de Phone Number [facility] [address] [place] [address] * SARS-COV-2 (COVID-19)+INFLU A+B PCR RAPID (01/21/2023 5:38 PM GRADES 1 THRU 5 TEACHER) [facility] COVID-19 PCR Not detected Not detected 01/22/20 6:24 PM GRADES 1 THRU 5 TEACHER [facility] Influenza A PCR Not detected Not detected 01/21/2023 6:24 PM GRADES 1 THRU 5 TEACHER [facility] Influenza B PCR Not detected Not detected 01/21/2023 6:24 PM GRADES 1 THRU 5 TEACHER [facility] Microbiology SPECIMEN FROM NASOPHARYNGEAL STRUCTURE / Unknown Collection / Unknown 01/21/2023 5:38 PM GRADES 1 THRU 5 TEACHER 01/21/2023 5:38 PM GRADES 1 THRU 5 TEACHER Narrative [facility] - 01/21/2023 6:24 PM GRADES 1 THRU 5 TEACHER This nucleic acid amplification assay has been authorized by the Food and Drug administration (FDA) under an Emergency Use Authorization (EUA). This test is only authorized for the duration of time the declaration that circumstances exist justifying the authorization of emergency use of in vitro diagnostic tests for detection of SARS-CoV-2 virus and/or diagnosis of COVID-19 infection under section 564(b)(1) of the Act, 21 U.S.C 360bbb-3 (b)(1), unless the authorization is terminated or revoked sooner. Fact Sheets for this EUA assay are available upon request. Paresh Patino PA-C LAB - MICROBIOLOGY ORDERABLES Performing Organization Address [facility] Co de Phone Number [facility] [address] [place] [address] * EKG 12-LEAD (01/21/2023 5:33 PM GRADES 1 THRU 5 TEACHER) Only the most recent of9 resultswithin the time period is included. [facility] Ventricular Rate 60 BPM [facility] Atrial Rate 60 BPM [facility] P-R Interval 130 ms [facility] QRS Duration ms 84 ms [facility] Q-T Interval ms 410 ms [facility] QTC Calculation (Bezet) 410 ms [facility] Calculated P [place] 36 degrees [facility] Calculated R [place] 15 degrees [facility] Calculated T [place] 24 degrees [facility] Interpretation EKG NORMAL SINUS RHYTHM NORMAL ECG WHEN COMPARED WITH ECG OF 13-JUL-2020 22:47, Limb lead reversal IS NO LONGER PRESENT Confirmed by Matthew North MD ([id number]) on 01/22/2023 7:54:22 AM [facility] MUSE 01/21/2023 5:33 PM GRADES 1 THRU 5 TEACHER 01/22/2023 7:54 AM GRADES 1 THRU 5 TEACHER Paresh Patino PA-C ECG ORDERABLES [facility] * XR CHEST PA AND LATERAL (ROUTINE) (01/21/2023 5:19 PM GRADES 1 THRU 5 TEACHER) Only the most recent of10 resultswithin the time period is included. Anatomical Region Laterality Modality Chest Radiographic Suri ging 01/21/2023 5:23 PM GRADES 1 THRU 5 TEACHER Impressions 01/21/2023 5:23 PM GRADES 1 THRU 5 TEACHER IMPRESSION: Normal > Interpreting Provider: Devin Hayes MD on 01/21/2023 5:23 PM Narrative 01/21/2023 5:23 PM GRADES 1 THRU 5 TEACHER PROCEDURE: XR CHEST 2VW DATE/TIME OF EXAM: 01/21/2023 5:20 PM CLINICAL INFORMATION: None relevant/not provided if blank. Indication: R05.9: Cough, unspecified Additional History: COMPARISON: Chest from 07/04/2022 FINDINGS: The lungs are clear and free of effusion. The heart, mediastinum and bony thorax are normal. Procedure Note Devin Hayes MD - 01/21/2023 PROCEDURE: XR CHEST 2VW DATE/TIME OF EXAM: 01/21/2023 5:20 PM CLINICAL INFORMATION: None relevant/not provided if blank. Indication: R05.9: Cough, unspecified Additional History: COMPARISON: Chest from 07/04/2022 FINDINGS: The lungs are clear and free of effusion. The heart, mediastinum andbony thorax are normal. IMPRESSION: Normal > Interpreting Provider: Devin Hayes MD on 01/21/2023 5:23 PM Malik Ochoa PA-C DIAGNOSTIC IMAGING ORDERABLES * XR KNEE RIGHT 3VW (01/01/2023 1:18 PM GRADES 1 THRU 5 TEACHER) Anatomical Region Laterality Modality Lower Extremity Radiographic Suri ging 01/01/2023 1:21 PM GRADES 1 THRU 5 TEACHER Narrative 01/01/2023 2:09 PM GRADES 1 THRU 5 TEACHER PROCEDURE: XR KNEE RIGHT 3VW, DATE/TIME OF EXAM: 01/01/2023 1:18 PM, LOCATION [facility] INDICATION: M25.561: Pain in right knee FINDINGS: Tricompartmental hypertrophic degenerative change is present with mild joint space narrowing. No acute fracture or dislocation is seen. There is degenerative change of the proximal tibiofibular articulation. Edited by Radha Dominguez on 01/01/2023 1:42 PM > Interpreting Provider: José Miguel Garcia MD on 01/01/2023 2:09 PM Procedure Note José Miguel Garcia MD - 01/01/2023 PROCEDURE: XR KNEE RIGHT 3VW, DATE/TIME OF EXAM: 01/01/2023 1:18 PM, LOCATION [facility] INDICATION: M25.561: Pain in right knee FINDINGS: Tricompartmental hypertrophic degenerative change is present with mild joint space narrowing. No acute fracture or dislocation is seen. Thereis degenerative change of the proximal tibiofibular articulation. Edited by Radha Dominguez on 01/01/2023 1:42 PM > Interpreting Provider: José Miguel Garcia MD on 01/01/2023 2:09 PM Gricelda Mckay COMPUTER LAB ASSISTANT-NUCLEAR OPERATIONS SPECIALIST DIAGNOSTIC IMAGING ORDERABLES * (ABNORMAL) IRON + TIBC + FERRITIN (10/08/2022 7:30 AM CDT) TIBC 318 250 - 450 ug/dL [facility] INSURANCE BILL UIBC 262 118 - 369 ug/dL [facility] INSURANCE BILL Iron 56 27 - 139 ug/dL [facility] INSURANCE BILL Iron Saturation 18 15 - 55 % [facility] INSURANCE BILL Ferritin 164(H) 15 - 150 ng/mL [facility] INSURANCE BILL Comment:FASTING Blood BLOOD SPECIMEN / Unknown 10/08/2022 7:30 AM CDT 10/08/2022 Narrative Resulting Agency Comment [facility] performed [facility]: [facility] [address] [facility] [phone] Mercedes Collins MD LAB - CHEMISTRY RORY D[place]TON Performing Organization Address [facility] Co de Phone Number [facility] INSURANCE BILL [address] [place] [address] * C-REACTIVE PROTEIN (CRP) (10/08/2022 7:30 AM CDT) Only the most recent of2 resultswithin the time period is included. C-Reactive Protein 3 0 - 10 mg/L [facility] INSURANCE BILL Comment:FASTING Blood BLOOD SPECIMEN / Unknown 10/08/2022 7:30 AM CDT 10/08/2022 Narrative Resulting Agency Comment Lab Testing performed at: [facility] [address] [place] [phone] Mercedes Collins MD LAB - CHEMISTRY RORY D[place] Performing Organization Address [facility] de Phone Number [facility] INSURANCE BILL [address] [place] [address] * SED RATE AUTO (ESR) (10/08/2022 7:30 AM CDT) Only the most recent of6 resultswithin the time period is included. Erythrocyte Sedimentation Rate Westergren 39 0 - 40 mm/hr [facility] INSURANCE BILL Comment:FASTING Blood BLOOD SPECIMEN / Unknown 10/08/2022 7:30 AM CDT 10/08/2022 Narrative Resulting Agency Comment Lab Testing performed at: [facility] [address] [facility] [phone] Mercedes Collins MD LAB - HEMATOLOGY ROYA CHANDLER Performing Organization Address City/[facility]/ZIP Co de Phone Number [facility] INSURANCE BILL [address] [place] [address] * MAGNESIUM BLOOD (10/08/2022 7:30 AM CDT) Only the most recent of3 resultswithin the time period is included. Magnesium 1.9 1.6 - 2.3 mg/dL [facility] INSURANCE BILL Comment:FASTING Blood BLOOD SPECIMEN / Unknown 10/08/2022 7:30 AM CDT 10/08/2022 Narrative Resulting Agency Comment Lab Testing performed at: [facility] [address] [facility] [phone] Mercedes Collins MD LAB - CHEMISTRY RORY [place] Performing Organization Address [facility] Co de Phone Number [facility] INSURANCE BILL [address] [place] [address] * (ABNORMAL) HEMOGLOBIN A1C (07/21/2022 10:41 AM CDT) Only the most recent of7 resultswithin the time period is included. Hemoglobin A1c 7.3(H) 4.8 - 5.6 % [facility] INSURANCE BILL Comment: . Prediabetes: 5.7 - 6.4 Diabetes: >6.4 Glycemic control for adults with diabetes: <7.0 FASTING Blood BLOOD SPECIMEN / Unknown 07/21/2022 10:41 AM CDT 07/21/2022 Narrative [facility] INSURANCE BILL - 07/22/2022 7:10 AM CDT A courtesy copy of this [facility] Result[facility] Agency Comment Lab Testing performed at: [facility] [address] [facility] [phone] Mercedes Collins MD LAB - CHEMISTRY RORY DAL[place] Performing Organization Address City/[facility] Co de Phone Number [facility] INSURANCE BILL [address] [place] [address] * EYE EXAM (06/13/2022) Anatomical Region Laterality Modality Other 06/13/2022 Narrative 06/13/2022 Ordered by an unspecified provider. Scanned Document SCANNING ONLY * CBC W DIFF (EXTERNAL RESULT ENTRY) (04/20/2021 10:17 AM GRADES 1 THRU 5 TEACHER) WBC (EXTERNAL RESULT) 8.5 10^3/ul [facility] Hemoglobin (EXTERNAL RESULT) 14.2 g/dl [facility] Hematocrit (EXTERNAL RESULT) 42.8 % [facility] Platelets (EXTERNAL RESULT) 356 10^3/ul [facility] Neutrophil Absolute (EXTERNAL RESULT) 3.6 10^3/ul [facility] Blood BLOOD SPECIMEN / Unknown 04/20/2021 10:17 AM GRADES 1 THRU 5 TEACHER Historical Provider LAB - HEMATOLOGY ORDERABLES [facility] * COMP MET PANEL (EXTERNAL RESULT ENTRY) (04/20/2021 10:17 AM GRADES 1 THRU 5 TEACHER) Glucose (EXTERNAL) 114 mg/dL [facility] Sodium (EXTERNAL RESULT) 142 mmol/L [facility] Potassium (EXTERNAL RESULT) 4.2 mmol/L [facility] Chloride (EXTERNAL RESULT) 103 mmol/L [facility] CO2 (EXTERNAL) 21 mmol/L OUTSI DE [facility]FERENCE LAB Calcium (EXTERNAL RESULT) 9.7 mg/dL [facility] Anion Gap (EXTERNAL RESULT) [facility] BUN (EXTERNAL RESULT) 14 mg/dL [facility] Creatinine (EXTERNAL RESULT) 0.96 mg/dl [facility] Alkaline Phosphatase (EXTERNAL RESULT) 88 U/L [facility] ALT (EXTERNAL RESULT) 39 U/L [facility] AST (EXTERNAL RESULT) 33 U/L [facility] Protein Total (EXTERNAL RESULT) 7.6 gm/dL [facility] Albumin (EXTERNAL RESULT) 4.3 gm/dL [facility] Bilirubin Total (EXTERNAL RESULT) 0.9 mg/dL [facility] eGFR MDRD (EXTERNAL RESULT) [facility]FERENCE LAB eGFR (EXTERNAL) [facility] REFERENCE LAB Blood BLOOD SPECIMEN / Unknown 04/20/2021 10:17 AM GRADES 1 THRU 5 TEACHER Historical Provider LAB - CHEMISTRY O RDERABLES OUT[facility]IDE [facility]FERENCE LAB * LAB RESULTS ORDER (04/20/2021) Only the most recent of6 resultswithin the time period is included. 04/20/2021 Narrative 04/20/2021 Ordered by an unspecified provider. Scanned Document LAB - THERAPEUTIC DR NAJMA MONITORING ORDERABLES * CULTURE URINE (12/20/2020 12:00 AM CDT) Only the most recent of4 resultswithin the time period is included. Culture [facility] Comment: CULTURE, URINE, ROUTINE Micro Number: [id number] Test Status: Final Specimen Source: Urine Specimen Quality: Adequate Result: Less than 10,000 CFU/mL of single Gram positive organism isolated. No further testing will be performed. If clinically indicated, recollection using a method to minimize contamination, with prompt transfer to Urine Culture Transport Tube, is recommended. NO COLLECTION DATE RECEIVED. WE HAVE USED THE DATE THE SPECIMEN WAS RECEIVED BY THIS LABORATORY THE COLLECTION DATE. IF THIS IS INCORRECT, PLEASE CONTACT CLIENT SERVICES. PHONE NUMBER: [phone] Test Performed at: [facility] [address] EMBER RIVERA MD Urine URINE SPECIMEN COLLECTION, CATHETERIZED / Unknown 12/19/2020 3:57 AM CDT Dominick Dodson MD LAB - MICROBIOLO GY ORDERABLES [address] [address] * DC INSERT NON-INDWELLING BLADDER (12/18/2020 5:38 PM CDT) Narrative Dominick Dodson MD - 12/18/2020 5:38 PM CDT Dominick Dodson MD 12/18/2020 5:38 PM Straight catheterization was performed after swabbing the urethra with betadine. A 14 Fr urethral catheter was inserted without difficulty and the bladder was drained. The patient tolerated the procedure well. Dominick Dodson MD PROCEDURE/MINOR SURGICAL ORDERABLES * BASIC METABOLIC PANEL (BMP) (12/15/2020 9:27 AM CDT) Only the most recent of10 resultswithin the time period is included. Glucose 96 65 - 99 mg/dL [facility] INSURANCE BILL BUN 13 6 - 24 mg/dL [facility] INSURANCE BILL Creatinine 0.96 0.57 - 1.00 mg/dL [facility] INSURANCE BILL eGFR by MDRD 65 >59 mL/min/1. 73 [facility] INSURANCE BILL eGFR by MDRD 75 >59 mL/min/1. 73 [facility] INSURANCE BILL Comment: In accordance with recommendations from the NKF-ASN Task force, [facility] is in the process of updating its eGFR calculation to the 2020 CKD-EPI creatinine equation that estimates kidney function without a race variable. BUN/Creatinine Ratio 14 9 - 23 [facility] INSURANCE BILL Sodium 140 134 - 144 mmol/L [facility] INSURANCE BILL Potassium 4.2 3.5 - 5.2 mmol/L [facility] INSURANCE BILL Chloride 99 96 - 106 mmol/L [facility] INSURANCE BILL CO2 22 20 - 29 mmol/L [facility] INSURANCE BILL Calcium 9.7 8.7 - 10.2 mg/dL [facility] INSURANCE BILL Comment:FASTING Blood BLOOD SPECIMEN / Unknown 12/15/2020 9:27 AM CDT 12/15/2020 Narrative [facility] INSURANCE BILL - 12/16/2020 8:08 AM CDT A courtesy copy of this report has been sent to [facility] Resulting Agency Comment [facility] [address] [facility] [phone] Mercedes Collins MD LAB - CHEMISTRY RORY DALTON [facility] INSURANCE BILL [address] [place] [address] * LIPID PROFILE (LIPID PANEL) (12/15/2020 9:27 AM CDT) Only the most recent of9 resultswithin the time period is included. Cholesterol 178 100 - 199 mg/dL [facility] INSURANCE BILL Triglycerides 106 0 - 149 mg/dL [facility] INSURANCE BILL HDL Cholesterol 81 >39 mg/dL [facility] INSURANCE BILL VLDL Calculated 19 5 - 40 mg/dL [facility] INSURANCE BILL LDL Calculated 78 0 - 99 mg/dL [facility] INSURANCE BILL Comment NOT NEEDED [facility] INSURANCE BILL Comment: FASTING Ancillary determined the test is not needed. Blood BLOOD SPECIMEN / Unknown 12/15/2020 9:27 AM CDT 12/15/2020 Narrative Resulting Agency Comment Lab Testing performed at: [facility] [place] [address] [facility] [phone] Mercedes Collins MD LAB - CHEMISTRY RORY DALTON [facility] INSURANCE BILL [address] [place] [address] * DC INSERT NON-INDWELLING BLADDER (11/21/2020 6:21 PM CDT) Narrative Dominick Dodson MD - 11/21/2020 6:21 PM CDT Dominick Dodson MD 11/21/2020 6:25 PM Straight catheterization was performed after swabbing the urethra with betadine. A 14 Fr urethral catheter was inserted without difficulty and the bladder was drained. The patient tolerated the procedure well. Dominick Dodson MD PROCEDURE/MINOR SURGICAL ORDERABLES * URINALYSIS AUTO - POINT OF CARE (AMB) [facility] (11/21/2020 11:52 AM CDT) Glucose UA neg Bilirubin UA POCT neg Ketones UA POCT neg Specific [place] UA 1.005 Blood Urine POCT 1+ Comment:25 Kory/uL pH UA 6.0 Protein UA neg Urobilinogen UA neg Nitrite UA neg WBC UA neg Urine URINE / Unknown 11/21/2020 1 1:52 AM CDT Dominick Dodson MD LAB - POINT OF C ARE ORDERABLES * (ABNORMAL) URINALYSIS W/MICROSCOPIC NO CULTURE (11/21/2020 11:52 AM CDT) Color UA YELLOW YELLOW [facility] Appearance CLEAR CLEAR [facility] Specific [place] UA 1.008 1.001 - 1.035 [facility] pH UA 7.0 5.0 - 8.0 [facility] Glucose UA NEGATIVE NEGATIVE [facility] Bilirubin UA NEGATIVE NEGATIVE [facility] Ketone UA NEGATIVE NEGATIVE [facility] Blood UA TRACE(A) NEGATIVE [facility] Protein UA NEGATIVE NEGATIVE [facility] Nitrite UA NEGATIVE NEGATIVE [facility] Leukocyte UA NEGATIVE NEGATIVE [facility] WBC UA NONE SEEN < OR = 5 /HPF [facility] RBC UA NONE SEEN < OR = 2 /HPF [facility] Epithelial Cell UA NONE SEEN < OR = 5 /HPF [facility] Bacteria UA NONE SEEN NONE SEEN /HPF [facility] Hyaline Casts NONE SEEN NONE SEEN /LPF [facility] Comment: Test Performed at: [facility] [id number] EMBER RIVERA MD 11/21/2020 11:5 2 AM CDT 11/23/2020 5:57 AM CDT Dominick Dodson MD LAB - URINALYSIS ORDERABLES Performing Organization Address [facility]/ZIP Co de Phone Number [address] [address] * HPV DETECTION HIGH RISK MELINDA (11/02/2020 2:27 PM CDT) High Risk Human Papilloma Result Not detected Not detected 11/07/2020 5:01 PM CDT [facility] High Risk Human Papilloma Interp 11/07/2020 5:01 PM CDT [facility] PATHOLOGY LAB Comment:High Risk Human Dev lloma Virus was Not Detected. Pathology/Cytolo gy MISCELLANEOUS SAMPLES / Unknown 11/02/2020 2:27 PM CDT 11/05/2020 12:05 PM CDT Narrative [facility] PATHOLOGY LAB - 11/07/2020 5:01 PM [...] Nance MD LAB - MICROBIOLOGY O RDERABLES [facility] [address] [place], [place] [address] [phone] * PAP IMAGE-GUIDED W HPV (11/02/2020 2:27 PM CDT) Only the most recent of2 resultswithin the time period is included. Case Report Gynecologic Cytology Report Case: [id number] Authorizing Provider: Peterson Nance MD Collected: 11/02/2020 02:27 PM Ordering Location: [facility] Obstetrics Received: 11/05/2020 12:05 PM Gynecology and Women's Health First Screen: [place] Specimen: THINPREP - IMAGE GUIDED, Cervix/Endocervix 11/08/2020 10:13 AM CDT [facility] LMP menopausal 11/08/2020 10:13 AM CDT [facility] Menstrual Status Postmenopausal 10/18 10:13 AM CDT [facility] Specimen Adequacy Satisfactory for evaluation, endocervical/trans formation zone component present. 11/08/2020 10:13 AM CDT [facility] Categorization Negative for intraepithelial lesion or malignancy. 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 11/08/2020 10:13 AM CDT [facility] Pap Footnote The Pap Smear is a screening test. False positive and false negative results occur. Negative results do not preclude abnormalities, thus clinical correlation is required. This specimen was evaluated by the ThinPrep Imaging System along with an additional manual rescreening by a waybill clerk and/or pathologist. 11/08/2020 10:13 AM CDT [facility] Embedded Images 10:13 AM CDT [facility] Pathology/Cytolo gy MISCELLANEOUS SAMPLES / Unknown 11/02/2020 2:27 PM CDT 11/05/2020 12:05 PM CDT Peterson Nance MD LAB - PATHOLOGY/CYTO LOGY ORDERABLES [facility] [address] [phone] * US RETROPERITONEAL COMPLETE (08/01/2020 2:41 PM CDT) Anatomical Region Laterality Modality Abdomen Ultrasound 08/01/2020 3:17 PM CDT Impressions 08/01/2020 3:18 PM CDT Unremarkable study. *Reading Radiologist: Ciro Salcedo on 08/01/2020 at 3:18 PM Narrative 08/01/2020 3:18 PM CDT Renal sonogram. HISTORY: Hematuria. Images show the right kidney measure 11.7 x 6.4 x 4.5 cm with a cortical thickness of 1.4 cm. Left kidney is 11.0 x 6.0 x 4.0 cm with a cortical thickness of 1.8 cm. Urinary bladder is unremarkable. Ureteral jets are present. Procedure Note Ciro Salcedo MD - 08/01/2020 Renal sonogram. HISTORY: Hematuria. Images show the right kidney measure 11.7 x 6.4 x 4.5 cm with a cortical thickness of 1.4 cm. Left kidney is 11.0 x 6.0 x 4.0 cm with a cortical thickness of 1.8 cm. Urinary bladder is unremarkable. Ureteral jets are present. IMPRESSION Unremarkable study. *Reading Radiologist: Ciro Salcedo on 08/01/2020 at 3:18 PM Carlota Hyman APRN-NUCLEAR OPERATIONS SPECIALIST US ORDERABLES * REF LAB-SPECIMEN STATUS REPORT (08/01/2020 1:48 PM CDT) Specimen Status Report NOT NEEDED [facility] INSURANCE BILL Comment: Test not performed. No urine specimen was received for culture. TEST: [id number] Urine Culture, Routine Ancillary determined the test is not needed. 08/01/2020 1:48 PM CDT 08/01/2020 Narrative Resulting Agency Comment Lab Testing performed at: [facility] [id number] Carlota Hyman COMPUTER LAB ASSISTANT-NUCLEAR OPERATIONS SPECIALIST LAB - CHEMISTRY ORDERABLES [facility] INSURANCE [place] [address] * URINALYSIS - POINT OF CARE (08/01/2020 1:40 PM CDT) Only the most recent of4 resultswithin the time period is included. Clarity UA POCT clear [facility] Color UA POCT yellow [facility] Leukocyte UA negative Negative [facility] Nitrite UA POCT negative Negative [facility] Urobilinogen UA 0.2 0.1 - 1.[address] [facility] [address] [facility] Protein UA POCT negative Negative [facility] pH UA 8.0 5.0 - 8.[address] [facility] Blood UA trace Negative [facility] Specific [place] UA POCT 1.015 1.002 - 1.[address] [facility] Ketone UA negative Negative [facility] Bilirubin UA POCT negative Negative [facility] Glucose UA negative Negative [facility] Urine URINE / Unknown 08/01/2020 1 :40 PM CDT Carlota Hyman APRN-NUCLEAR OPERATIONS SPECIALIST LAB - POINT OF CARE ORDERABLES [facility] [address] [phone] * CARDIAC RHYTHM STRIP ORDER (07/23/2020 12:11 PM CDT) Only the most recent of4 resultswithin the time period is included. Narrative 07/23/2020 12:11 PM CDT Ordered by an unspecified provider. Scanned Document CARDIAC SERVICES ORD ERABLES * (ABNORMAL) RENAL FUNCTION PANEL (07/18/2020 5:28 AM CDT) Only the most recent of2 resultswithin the time period is included. Glucose 101 70 - 105 mg/dL 07/18/2020 6:17 AM CDT [facility] Sodium 136 136 - 145 mmol/L 07/18/2020 6:17 AM CDT [facility] Potassium 3.6 3.5 - 5.1 mmol/L 07/18/2020 6:17 AM CDT [facility] Chloride 106 98 - 107 mmol/L 07/18/2020 6:17 AM CDT [facility] CO2 23 23 - 31 mmol/L 07/18/2020 6:17 AM CDT [facility] Calcium 8.5 8.4 - 10.4 mg/dL 07/18/2020 6:17 AM CDT [facility] Anion Gap 7(L) 8 - 18 mmol/L 07/18/2020 6:17 AM CDT [facility] BUN 8(L) 9.8 - 20.1 mg/dL 07/18/2020 6:17 AM CDT [facility] Creatinine 0.74 0.57 - 1.11 mg/dL 07/18/2020 6:17 AM CDT [facility] Albumin 3.0(L) 3.5 - 5.2 gm/dL 07/18/2020 6:17 AM CDT [facility] Phosphorus 4.6 2.3 - 4.7 mg/dL 07/18/2020 6:17 AM CDT [facility] eGFR by MDRD >60 >60 mL/min/1.7 3m2 07/18/2020 6:17 AM CDT [facility] eGFR by MDRD >60 >60 mL/min/1.7 3m2 07/18/2020 6:17 AM CDT [facility] Blood BLOOD SPECIMEN / Unknown Lab Venipuncture / Unknown 07/18/2020 5:28 AM CDT 07/18/2020 5:48 AM CDT Moreno Keenan MD LAB - CHEMISTRY RORY DALTON [facility] Organization Address City/State/ZIP Co de Phone Number [facility] [address] [place] [address] * QUANTIFERON-TB GOLD PLUS 4-TUBE (07/17/2020 5:20 AM CDT) [facility] Signature QuantiFERON Criteria Comment 07/19/2020 10:06 PM CDT [facility] ([facility]) Comment: The QuantiFERON-TB Gold Plus result is determined by subtracting the Nil value from either TB antigen (Ag) tube. The mitogen tube serves as a control for the test. QuantiFERON TB1 Ag Value 0.01 IU/mL 07/19/2020 10:06 PM CDT [facility] ([facility]) QuantiFERON TB2 Ag Value 0.02 IU/mL 07/19/2020 10:06 PM CDT [facility] ([facility]) QuantiFERON Nil Value 0.02 IU/mL 07/19/2020 10:06 PM CDT [facility] ([facility]) QuantiFERON Mitogen Value >10.00 IU/mL 07/19/2020 10:06 PM CDT [facility] ([facility]) QuantiFERON-TB Gold Plus Negative Negative 07/19/2020 10:06 PM CDT [facility] ([facility]) Comment: The specimen received for QuantiFERON testing was incubated by the ordering institution. Specific procedures outlined in our Directory of Services and in the package insert for the QuantiFERON Gold (In Tube) test must be followed to enable for proper stimulation of cells for the production of interferon gamma. Chemiluminescence immunoassay methodology Blood BLOOD SPECIMEN / Unknown Lab Venipuncture / Unknown 07/17/2020 5:20 AM CDT 07/17/2020 6:02 AM CDT Narrative [facility] ([facility]) - 07/19/2020 10:06 PM CDT Performed at: [address] [place] [id number] [employer] Team Leader: Jose Daley PhD, Phone: [phone] Mariam Monsivais MD LAB - CHEMISTRY RORY DAL[place] [facility] ([facility]) [address] [place] [address] * ANCA VASCULITIS PANEL (07/16/2020 3:42 AM CDT) [facility] Anti-myeloperoxid ase (MPO) Antibody <9.0 0.0 - 9.0 U/mL 07/19/2020 5:08 PM CDT [facility] ([facility]) Anti-proteinase 3 (DC-3) Abs <3.5 0.0 - 3.5 U/mL 07/19/2020 5:08 PM CDT [facility] ([facility]) Cytoplasmic (C-ANCA) <1:20 Neg:<1:20 titer 07/19/2020 5:08 PM CDT [facility] ([facility]) p-ANCA Titer <1:20 Neg:<1:20 titer 07/19/2020 5:08 PM CDT [facility] ([facility]) Comment: The presence of positive fluorescence exhibiting P-ANCA or C-ANCA patterns alone is not specific for the diagnosis of Lara's Granulomatosis (WG) or microscopic polyangiitis. Decisions about treatment should not be based solely on ANCA IFA results. The International ANCA Group Consensus recommends follow up testing of positive sera with both DC-3 and MPO-ANCA enzyme immunoassays. As many as 5% serum samples are positive only by EIA. Ref. AM J Clin Pathol 1999;111:507-513. Atypical p-ANCA Titer <1:20 Neg:<1:20 titer 07/19/2020 5:08 PM CDT [facility] ([facility]) Comment: The atypical pANCA pattern has been observed in a significant percentage of patients with ulcerative colitis, primary sclerosing cholangitis and autoimmune hepatitis. Blood BLOOD SPECIMEN / Unknown Lab Venipuncture / Unknown 07/16/2020 3:42 AM CDT 07/16/2020 5:31 AM CDT [facility] ([facility]) - 07/19/2020 5:08 PM CDT Performed at: 01 - [address] [id number] [employer] Team Leader: Fam Lemons MD, Phone: [phone] Performed at: [facility] - [facility] [address] [place], [place] [id number] [employer] Team Leader: Jose Daley PhD, Phone: [phone] Mariam Monsivais MD LAB - CHEMISTRY RORY D[place] [facility] ([facility]) [address] [place] [address] * (ABNORMAL) RHEUMATOID FACTOR BLOOD QUANTITATIVE (07/16/2020 3:41 AM CDT) Only the most recent of2 resultswithin the time period is included. Pathologist [facility] Rheumatoid Factor Quantitative 119(H) <30 IU/mL 07/16/2020 6:59 AM CDT [facility] Blood BLOOD SPECIMEN / Unknown Lab Venipuncture / Unknown 07/16/2020 3:41 AM CDT 07/16/2020 5:31 AM CDT Mariam Monsivais MD LAB - CHEMISTRY ORDE SHA Performing Organization Address [facility] Co de Phone Number [facility] [address] [place] [address] * (ABNORMAL) JUAN M BLOOD TITER (07/16/2020 3:41 AM CDT) Pathologist [facility] Homogeneous 1:160(A) <1:80 07/18/2020 11:32 AM CDT [facility] Blood BLOOD SPECIMEN / Unknown Lab Venipuncture / Unknown 07/16/2020 3:41 AM CDT 07/16/2020 5:31 AM CDT Narrative [facility] - 07/18/2020 11:32 AM CDT Methodology: Indirect Immunofluorescence Assay (IFA) utilizing Hep-2-Gamma cells. Mariam Monsivais MD LAB - CHEMISTRY ORDMacario DALTON Performing Organization Address [facility] de Phone Number [facility] [address] [place] [address] * (ABNORMAL) JUAN M BLOOD SCREEN W/REFLEX TITER (07/16/2020 3:41 AM CDT) Only the most recent of2 resultswithin the time period is included. Pathologist [facility] JUAN M Positive(A ) Negative 07/18/2020 11:32 AM CDT [facility] Blood BLOOD SPECIMEN / Unknown Lab Venipuncture / Unknown 07/16/2020 3:41 AM CDT 07/16/2020 5:31 AM CDT Narrative [facility] - 07/18/2020 11:32 AM CDT Methodology: Indirect Immunofluorescence Assay (IFA) utilizing Hep-2-Gamma cells. Mariam Monsivais MD LAB - CHEMISTRY RORY DALTON [facility] [address] [place] [phone] * ECHOCARDIOGRAM 2D WITH DOPPLER (07/15/2020 11:15 AM CDT) Only the most recent of5 resultswithin the time period is included. 07/15/2020 11:1 5 AM CDT Narrative Procedure Note Marcos Banks MD - 07/17/2020 . [place] [id number] Echocardiography Examination Transthoracic Name: POLA TURNER MPI#: MR#: [id number] Admission Number: [id number] Study Date: 07/17/2020 Study Time: 12:59 PM Date Of : 1960 Age: 59 years Height: 69 in. (175.3 cm) Weight: 239.99 lbs. (108.86 kg) BSA: 2.23 m2 Gender: Female Blood Pressure: 131 mmHg / 75 mmHg Heart Rate: Exam Details Procedure Ordered: ECHOCARDIOGRAM 2D W/DOPPLER Procedure Components: Complete 2D, M-mode, complete spectral Doppler, color Doppler Procedure Views: Images were obtained from the parasternal, apical, subcostal, and suprasternal notch acoustic windows Procedure Status: Routine study Contrast: 0.6 mL Intravenous contrast (Definity) was administered to opacify the left ventricle. Facility Location: [facility] Indication: Fever unknown origin Procedure General Operations Manager: Pepe Hennessy Ordering Provider: CLAUDE ALVAREZ Reading Physician: Marcos Banks MD Conclusions Left Ventricle: Left ventricle is normal in size. Normal global systolic left ventricular function. Left ventricle wall thickness is mildly increased. There are no regional wall motion abnormalities. Left ventricular diastolic function parameters are normal. Mitral Valve: There is mild mitral thickening. Overall Conclusions: No vegetations seen but limited image quality. Consider DANILO if clinically indicated. Patient: POLA TURNER Study Date: 07/17/2020 12:59 PM Page 1 of 3 Follow up: Findings Left Ventricle: Left ventricle is normal in size. Normal global systolic left ventricular function. EF evaluated by biplane method of disks. Left ventricle wall thickness is mildly increased. There are no regional wall motion abnormalities. Left ventricular diastolic function parameters are normal. Right Ventricle: Normal size right ventricle. Right ventricular wall thickness is normal. Right ventricular systolic function is normal. Pulmonary artery pressure not obtained due inadequate doppler jet; however no secondary evidence of pulmonary hypertension. Left Atrium: The left atrium is normal in size. Right Atrium: The right atrium is normal in size. Mitral Valve: Mitral leaflets exhibit normal cuspal separation. Trivial mitral regurgitation. No mitral valve stenosis. There is mild mitral thickening. Aortic Valve: Aortic leaflets exhibit normal cuspal separation. No aortic valve regurgitation. There is no aortic stenosis. Tricuspid Valve: Tricuspid valve leaflets are normal. No tricuspid regurgitation. No tricuspid valve stenosis. Pulmonic Valve: Pulmonic leaflets exhibit normal cuspal separation. No pulmonic valve regurgitation is evident. There is no pulmonic valve stenosis. Aorta: The aorta is normal. No dilation of the ascending aorta. The aortic root exhibits normal size. Great Vessels: IVC: The inferior vena cava is normal in size and course. Pericardium: The pericardium is normal in appearance. No pericardial effusion. Clinical Data Hypertension: Yes Comment: ASTHMA, HTN, HIGH CHOLESTEROL Measurements Anatomy Label Value Normal Value Aorta AoRoot, 2D 2.8 cm (1.4cm - 2.6cm) Aortic Valve AV Vmean 0.86 m/s Aortic Valve AV VTI 26.17 cm Aortic Valve AV PGmax 7 mmHg Aortic Valve AV PGmean 3 mmHg Aortic Valve AV Vmax, Curve 1.28 m/s (1m/s - 1.7m/s) Aortic Valve LVOT VTI / AV VTI 0.9 Aortic Valve MARCIA D (continuity eq. VTI) 2.5 cm Aortic Valve MARCIA Index (continuity 1.17 cm /m eq.Vmax) Aortic Valve LVOT Vmax / AV Vmax 0.91 Interventricular septum IVSd, 2D 1.2 cm (0.6cm - 1.1cm) Patient: POLA TURNER Study Date: 07/17/2020 12:59 PM Page 2 of 3 Left Atrium LADs, 2D 3.9 cm (2.7cm - 3.8cm) Left Atrium LA Area s, A4C 14.7 cm (0cm - 20cm ) Left Atrium LA Area s, A2C 14.8 cm (0cm - 20cm ) Left Atrium LAESV, MOD4 36 ml (22ml - 52ml) Left Atrium LAESV, MOD2 38 ml (22ml - 52ml) Left Atrium LAESV index, MOD4 16.1 ml/m Left Atrium LAESV index, MOD2 17 ml/m Left Atrium LAESV index, AL4 17 ml/m Left Atrium LAESV index, AL2 17.5 ml/m Left Ventricle LVOT Vmax 1.17 m/s (0.7m/s - 1.1m/s) Left Ventricle LVOTd 1.9 cm (1.8cm - 2cm) Left Ventricle LVOT VTI 23.47 cm (18cm - 22cm) Left Ventricle LVOT PGmax 6 mmHg Left Ventricle LVDd, 2D 4.4 cm (3.7cm - 5.2cm) Left Ventricle LVDs, 2D 2.9 cm (2.2cm - 3.5cm) Left Ventricle LVPWd, 2D 1.2 cm (0.6cm - 0.9cm) Left Ventricle FS, 2D 34.09 % Left Ventricle LVEDV, BP 112 ml (56ml - 104ml) Left Ventricle LVESV, BP 38 ml (19ml - 49ml) Left Ventricle LVEDV Index, BP 50.2 ml/m (35ml/m - 75ml/m ) Left Ventricle LVESV Index, BP 17 ml/m (12ml/m - 30ml/m ) Left Ventricle LVOT PGmean 3 mmHg Left Ventricle LVOT Vmean 0.76 m/s Left Ventricle Diastolic MV E Vmax 0.92 m/s Function Left Ventricle Diastolic MV A Vmax 0.92 m/s Function Left Ventricle Diastolic MV E/A 1 Function Left Ventricle Diastolic MV DT 271 ms Function Mitral Valve MVA PHT 2.8 cm Mitral Valve MV PHT 79 ms Mitral Valve MV Dec Ritchie 3.39 m/s Pulmonic Valve PV PGmax 3 mmHg Pulmonic Valve PV Vmax, Caliper 0.8 m/s (0.6m/s - 0.9m/s) Right Ventricle Diastolic PV AT 116 ms Function (No Signature Object) Patient: POLA TURNER Study Date: 07/17/2020 12:59 PM Page 3 of 3 Claude Alvarez DO ECHO ORDERABLES Performing Organization Address [facility] Co de Phone Number [facility] [address] [place] [address] * CULTURE BLOOD (07/15/2020 7:29 AM CDT) Only the most recent of3 resultswithin the time period is included. Pathologist [facility] Culture No growth day 5 LIDIA 07/20/2020 2:00 PM CDT [facility] Blood PERIPHERAL BLOOD / Unknown Lab Venipuncture / Unknown 07/15/2020 7:29 AM CDT 07/15/2020 8:32 AM CDT Claude Alvarez DO LAB - MICROBIOLOGY O RDERABLES Performing Organization Address [facility] Co de Phone Number [facility] [address] [phone] * T4 FREE DIRECT REFLEXED (07/15/2020 4:32 AM CDT) Pathologist [facility] T4 Free 1.07 0.70 - 1.48 ng/dL 07/15/2020 11:01 AM CDT [facility] Blood BLOOD SPECIMEN / Unknown Lab Venipuncture / Unknown 07/15/2020 4:32 AM CDT 07/15/2020 5:30 AM CDT Claude Alvarez DO LAB - CHEMISTRY ORDE RABLES Performing Organization Address [facility] Co de Phone Number [facility] [address] [place] [phone] * (ABNORMAL) TSH REFLEX FREE T4 (07/15/2020 4:32 AM CDT) Only the most recent of2 resultswithin the time period is included. Pathologist [facility] TSH 0.312(L) 0.350 - 4.940 uIU/mL 07/15/2020 10:39 AM CDT [facility] Blood BLOOD SPECIMEN / Unknown Lab Venipuncture / Unknown 07/15/2020 4:32 AM CDT 07/15/2020 5:30 AM CDT Claude Alvarez DO LAB - CHEMISTRY ORDE RABMARYBETH Performing Organization Address [facility]/ZIP Co de Phone Number [facility] [address] [place] [address] * CBC W/O DIFFERENTIAL (07/15/2020 4:32 AM CDT) [facility] WBC 9.5 4.4 - 10.7 x10E9/L 07/15/2020 5:39 AM CDT [facility] RBC 4.37 3.80 - 5.20 x10E12/L 07/15/2020 5:39 AM CDT [facility] Hemoglobin 12.6 12.0 - 15.6 gm/dL 07/15/2020 5:39 AM CDT [facility] Hematocrit 37.2 35.9 - 45.5 % 07/15/2020 5:39 AM CDT [facility] MCV 85.1 80.7 - 98.3 fl 07/15/2020 5:39 AM CDT [facility] MCH 28.8 26.7 - 34.0 pg 07/15/2020 5:39 AM CDT [facility] MCHC 33.9 30.8 - 35.9 gm/dL 07/15/2020 5:39 AM CDT [facility] Platelet Count 175 153 - 416 x10E9/L 07/15/2020 5:39 AM CDT [facility] RDW-CV 13.4 12.1 - 14.9 % 07/15/2020 5:39 AM CDT [facility] MPV 10.3 9.4 - 12.9 fl 07/15/2020 5:39 AM CDT [facility] Blood BLOOD SPECIMEN / Unknown Lab Venipuncture / Unknown 07/15/2020 4:32 AM CDT 07/15/2020 5:30 AM CDT Claude Alvarez DO LAB - HEMATOLOGY ORD ERABLES Performing Organization Address City/[facility]/ZIP Co de Phone Number [facility] [address] [place] [address] * US ABDOMEN COMPLETE (07/14/2020 1:00 PM CDT) Anatomical Region Laterality Modality Abdomen Ultrasound 07/14/2020 1:33 PM CDT Narrative 07/14/2020 3:19 PM CDT US ABDOMEN COMPLETE*[id number] Exam Date: 07/14/2020 1:00 PM HISTORY: Right upper quadrant pain EXAMINATION: Ultrasound of the retroperitoneum. COMPARISON: Ultrasound abdomen from 12/01/2007. Correlation with the CT of the abdomen from 07/13/2020. FINDINGS/IMPRESSION: There are fatty changes of the liver. The liver span measures approximately 15.2 cm. The main portal vein is patent with hepatopedal flow. The hepatic veins are patent. The bile ducts are normal. There is no biliary dilatation. The common duct measures 0.65 centimeters in diameter, which is within normal limits. The gallbladder is surgically absent. The visible portions of the pancreas are normal. The pancreatic tail is not well visualized. Multiple granulomas are seen in the spleen. The spleen measures approximately 11.5 x 4.5 x 4.7 cm. The right kidney measures 10.5 x 5.2 x 5.3 cm. The right renal cortex measures approximately 1.3 cm. The left kidney measures 10.4 x 4.8 x 5.1 cm. The left kidney cortex measures approximately 1.2 cm. The renal architecture is normal with normal renal echogenicity and corticomedullary differentiation. There is no hydronephrosis. No renal mass or calculus is seen. The urinary bladder is mildly distended with small amount of debris. The ureteric jets are not visualized. No distal ureteral dilatation is identified. The visible portions of the inferior vena cava appear normal. The proximal aorta abdominal measures approximately 2.8 cm. The mid abdominal aorta measures approximately 1.8 cm. The distal abdominal aorta measures approximately 1.7 cm. The peak systolic value measures approximately 83.6 cm/s. The resistivity index measures approximately 0.84. *Reading Radiologist: Constantin Mckeon on 07/14/2020 at 3:19 PM Procedure Note Constantin Mckeon MD - 07/14/2020 US ABDOMEN COMPLETE*[id number] Exam Date: 07/14/2020 1:00 PM HISTORY: Right upper quadrant pain EXAMINATION: Ultrasound of the retroperitoneum. COMPARISON: Ultrasound abdomen from 12/01/2007. Correlation with the CT of the abdomen from 07/13/2020. FINDINGS/IMPRESSION: There are fatty changes of the liver. The liver span measures approximately 15.2 cm. The main portal vein is patent with hepatopedal flow. The hepatic veins are patent. The bile ducts are normal. There is no biliary dilatation. The common duct measures 0.65 centimeters in diameter, which is within normal limits. The gallbladder is surgically absent. The visible portions of the pancreas are normal. The pancreatic tail is not well visualized. Multiple granulomas are seen in the spleen. The spleen measures approximately 11.5 x 4.5 x 4.7 cm. The right kidney measures 10.5 x 5.2 x 5.3 cm. The right renal cortex measures approximately 1.3 cm. The left kidney measures 10.4 x 4.8 x 5.1 cm. The left kidney cortex measures approximately 1.2 cm. The renal architecture is normal with normal renal echogenicity and corticomedullary differentiation. There is no hydronephrosis. No renal mass or calculus is seen. The urinary bladder is mildly distended with small amount of debris. The ureteric jets are not visualized. No distal ureteral dilatation is identified. The visible portions of the inferior vena cava appear normal. The proximal aorta abdominal measures approximately 2.8 cm. The mid abdominal aorta measures approximately 1.8 cm. The distal abdominal aorta measures approximately 1.7 cm. The peak systolic value measures approximately 83.6 cm/s. The resistivity index measures approximately 0.84. *Reading Radiologist: Constantin Mckeon on 07/14/2020 at 3:19 PM Claude Alvarez DO US ORDERABLES * CT HEAD WO CONTRAST (07/14/2020 5:55 AM CDT) Only the most recent of2 resultswithin the time period is included. Anatomical Region Laterality Modality Head Computed Tomogra phy 07/14/2020 7:43 AM CDT Impressions 07/14/2020 7:43 AM CDT 1. No acute intracranial process. *Reading Radiologist: Varun Ramon on 07/14/2020 at 7:43 AM Narrative 07/14/2020 7:43 AM CDT EXAMINATION: Computed tomography (CT) of the head without contrast HISTORY: Fever, unspecified TECHNIQUE: CT of the head was performed without contrast according to standard protocol. FINDINGS: Comparison is made with the prior study of July 01, 2020. No acute intra- or extra-axial fluid collections are identified. The ventricles are of normal size, shape, and morphology. The basilar cisterns are patent. No mass effect or midline shift is seen. The michaud-white matter differentiation is normal. The visualized portions of the orbits, paranasal sinuses, and mastoids appear normal. No acute fracture is identified. Procedure Note Varun Ramon MD - 07/14/2020 EXAMINATION: Computed tomography (CT) of the head without contrast HISTORY: Fever, unspecified TECHNIQUE: CT of the head was performed without contrast according to standard protocol. FINDINGS: Comparison is made with the prior study of July 01, 2020. No acute intra- or extra-axial fluid collections are identified. The ventricles are of normal size, shape, and morphology. The basilar cisterns are patent. No mass effect or midline shift is seen. The michaud-white matter differentiation is normal. The visualized portions of the orbits, paranasal sinuses, and mastoids appear normal. No acute fracture is identified. IMPRESSION 1. No acute intracranial process. *Reading Radiologist: Varun Ramon on 07/14/2020 at 7:43 AM France Barr MD CT ORDERABLES * XR CHEST 1 VW PORTABLE (07/14/2020 4:22 AM CDT) Anatomical Region Laterality Modality Chest Radiographic Suri ging 07/14/2020 8:48 AM CDT Narrative 07/14/2020 8:48 AM CDT Exam: AP radiograph of the chest. History: Fever, unspecified Findings/Impression: No focal consolidation or pleural effusion is identified. The heart appears normal in size. The mediastinal contours appear normal. *Reading Radiologist: Varun Ramon on 07/14/2020 at 8:48 AM Procedure Note Varun Ramon MD - 07/14/2020 Exam: AP radiograph of the chest. History: Fever, unspecified Findings/Impression: No focal consolidation or pleural effusion is identified. The heart appears normal in size. The mediastinal contours appear normal. *Reading Radiologist: Varun Ramon on 07/14/2020 at 8:48 AM France Barr MD DIAGNOSTIC IMAGI NG ORDERABLES * (ABNORMAL) URINALYSIS REFLEX TO MICROSCOPIC NO CULTURE (07/14/2020 1:30 AM CDT) Only the most recent of2 resultswithin the time period is included. Color UA Straw Straw, Yellow 07/14/2020 1:40 AM CDT [facility] Clarity UA Clear Clear 07/14/2020 1:40 AM CDT [facility] Glucose UA Negative Negative 07/14/2020 1:40 AM CDT [facility] Bilirubin UA Negative Negative 07/14/2020 1:40 AM CDT [facility] Ketone UA Trace(A) Negative 07/14/2020 1:40 AM CDT [facility] Specific [place] UA 1.027 1.005 - 1.030 07/14/2020 1:40 AM CDT [facility] Blood UA 3+(A) Negative 07/14/2020 1:40 AM CDT [facility] pH UA 8.0 5.0 - 8.0 pH 07/14/2020 1:40 AM CDT [facility] Protein UA Negative Negative 07/14/2020 1:40 AM CDT [facility] Urobilinogen UA Negative Negative mg/dL 07/14/2020 1:40 AM CDT [facility] Nitrite UA Negative Negative 07/14/2020 1:40 AM CDT [facility] Leukocyte UA Negative Negative 07/14/2020 1:40 AM CDT [facility] Urine Microscopy Urine microscopy to follow 07/14/2020 1:40 AM T [facility] Urine URINE SPECIMEN OBTAINED BY CLEAN CATCH PROCEDURE / Unknown Collection / Unknown 07/14/2020 1:30 AM CDT 07/14/2020 1:35 AM CDT [facility]AT[facility] - 07/14/2020 1:40 AM CDT Malik Ochoa PA-C LAB - URINALYSIS OR DERABLES Performing Organization Address [facility]/ZIP Co de Phone Number [facility] [address] [place] [phone] * (ABNORMAL) URINE MICROSCOPIC ONLY (07/14/2020 1:30 AM CDT) RBC UA 6-10(A) None Seen, 0-2, 3-5 # /hpf 07/14/2020 1:42 AM CDT [facility] WBC UA 0-5 None Seen, 0-5 # /hpf 07/14/2020 1:42 AM CDT [facility] Bacteria UA None Seen None Seen 07/14/2020 1:42 AM CDT [facility] Squamous Epithelial Cells 0-2 None Seen, 0-2, 3-5 /hpf 07/14/2020 1:42 AM CDT [facility] Urine URINE SPECIMEN OBTAINED BY CLEAN CATCH PROCEDURE / Unknown Collection / Unknown 07/14/2020 1:30 AM CDT 07/14/2020 1:35 AM CDT Narrative [facility] - 07/14/2020 1:42 AM CDT Malik Ochoa PA-C LAB - URINALYSIS OR DERABLES Performing Organization Address [facility] Co de Phone Number [facility] [address] [place] [phone] * CT ABDOMEN PELVIS W CONTRAST (07/13/2020 11:50 PM CDT) Only the most recent of3 resultswithin the time period is included. Anatomical Region Laterality Modality Abdomen, Pelvis Computed Tomogra phy 07/14/2020 7:59 AM CDT Impressions 07/14/2020 9:12 AM CDT 1. Colonic diverticulosis without evidence of acute diverticulitis. 2. Basilar opacities concerning for possible viral pneumonia. 3. No evidence of bowel obstruction or appendicitis. Edited by Lisa Hawley on 07/14/2020 9:04 AM *Reading Radiologist: Varun Ramon on 07/14/2020 at 9:12 AM Narrative 07/14/2020 9:[address] ABDOMEN AND PELVIS WITH CONTRAST TECHNIQUE: Multislice helical was performed after the administration of 100 mL of Isovue-370. HISTORY: Abdominal pain. FINDINGS: Patchy ground-glass opacities are seen in the lung bases. This could be related to viral pneumonia. The heart appears normal in size. The liver appears unremarkable. Small calcifications, likely granulomas, are seen within the spleen. The adrenal glands appear normal. The pancreas is normal. The gallbladder is absent. No bowel obstruction is seen. Colonic diverticulosis is present. Calcified fibroids are seen in the uterus. The urinary bladder appears normal. Bone windows demonstrate no definite destructive lesions. Procedure Note Varun Ramon MD - 07/14/2020 CT ABDOMEN AND PELVIS WITH CONTRAST TECHNIQUE: Multislice helical was performed after the administration of 100 mL of Isovue-370. HISTORY: Abdominal pain. FINDINGS: Patchy ground-glass opacities are seen in the lung bases. This could be related to viral pneumonia. The heart appears normal in size. The liver appears unremarkable. Small calcifications, likely granulomas, are seen within the spleen. The adrenal glands appear normal. The pancreas is normal. The gallbladder is absent. No bowel obstruction is seen. Colonic diverticulosis is present. Calcified fibroids are seen in the uterus. The urinary bladder appears normal. Bone windows demonstrate no definite destructive lesions. IMPRESSION 1. Colonic diverticulosis without evidence of acute diverticulitis. 2. Basilar opacities concerning for possible viral pneumonia. 3. No evidence of bowel obstruction or appendicitis. Edited by Lisa Hawley on 07/14/2020 9:04 AM *Reading Radiologist: Varun Ramon on 07/14/2020 at 9:12 AM France Barr MD CT ORDERABLES * LACTIC ACID BLOOD REFLEX TO REPEAT (07/13/2020 10:11 PM CDT) Lactic Acid 1.7 0.5 - 2.2 mmol/L 07/13/2020 10:27 PM CDT [facility] Blood BLOOD SPECIMEN / Unknown Venipuncture / Unknown 07/13/2020 10:11 PM CDT 07/13/2020 10:16 PM CDT Malik Ochoa PA-C LAB - CHEMISTRY ORD ERABLES Performing Organization Address [facility]/ZIP Co de Phone Number [facility] [address] [place] [phone] * LIPASE BLOOD (07/13/2020 10:11 PM CDT) Only the most recent of4 resultswithin the time period is included. Lipase 10 8 - 78 U/L 07/13/2020 10:32 PM CDT [facility] Blood BLOOD SPECIMEN / Unknown Venipuncture / Unknown 07/13/2020 10:11 PM CDT 07/13/2020 10:16 PM CDT Malik Ochoa PA-C LAB - CHEMISTRY ORD ERABLES Performing Organization Address [facility] Co de Phone Number [facility] [address] [place] [phone] * (ABNORMAL) GLUCOSE - POINT OF CARE (07/04/2020 12:11 PM CDT) Only the most recent of11 resultswithin the time period is included. Glucose WB/POC 189(H) 70 - 106 mg/dL 07/04/2020 12:48 PM CDT [facility] Specimen Type Arterial/C apillary 07/04/2020 12:48 PM CDT [facility] Blood BLOOD SPECIMEN / Unknown 07/04/2020 12:11 PM CDT 07/04/2020 12:48 PM CDT Alexx Hermosillo MD LAB - POINT OF CARE ORDERABLES Performing Organization Address [facility] Co de Phone Number [facility] [address] [place] [phone] * PROCALCITONIN LEVEL (07/02/2020 9:25 AM CDT) Procalcitonin 0.02 <0.10 ng/mL 07/02/2020 11:03 AM CDT [facility] Blood BLOOD SPECIMEN / Unknown Lab Venipuncture / Unknown 07/02/2020 9:25 AM CDT 07/02/2020 10:08 AM CDT Narrative [facility] - 07/02/2020 11:03 AM CDT The change in procalcitonin (PCT) concentration over time provides support in decision making on antibiotic discontinuation for suspected or confirmed septic patients. Follow-up samples should be tested once every 1-2 days based upon physician discretion taking into account the patient s evolution and progress. Consider discontinuation of antibiotic therapy if the PCT current is <= 0.5 ng/mL or if the delta PCT is > 80%. Duration of antibiotics should not be determined solely on PCT; established guidelines for the indication should be followed. PCT peak: Highest observed PCT concentration PCT current: Most recent PCT concentration Calculate delta PCT using the following equation: Delta PCT = PCT Peak PCT current X 100% PCT Peak The Change in Procalcitonin Calculator is available at [email or web address] Listed If clinical picture has not improved and PCT remains high, reevaluate and consider treatment failure or other causes. Shaun Christopher MD LAB - CHEMISTRY RORY DAL[place] [facility] Organization Address City/State/[facility] Co de Phone Number [facility] [address] [place] [address] * CT OUTSIDE CONSULTATION (07/01/2020 11:01 PM CDT) Anatomical Region Laterality Modality Computed Tomogra phy 07/03/2020 3:09 PM CDT Impressions 07/03/2020 3:23 PM CDT 1. No pulmonary embolism. 2. Multifocal bilateral infiltrates with areas of consolidation. The overall pattern is suspicious for COVID-19 pneumonia. *Reading Radiologist: Devin Hayes on 07/03/2020 at 3:23 PM Narrative 07/03/2020 3:[address] angiogram chest with contrast, outside consultation DATE: 07/01/2020. INDICATION: Shortness of breath. TECHNIQUE: Multidetector nonenhanced chest CT angiography performed at [facility] on 07/01/2020. COMPARISONS: Chest CT from 12/12/2013. FINDINGS: Overall exam quality is moderate to good for evaluating the pulmonary arteries due to contrast bolus intensity and history motion. There are no convincing intraluminal filling defects indicate pulmonary embolism. However there are multifocal patchy peripheral groundglass opacities in both the upper and lower lobes with areas of subpleural consolidation in the lung bases. There is no pleural effusion. Mediastinal nodes are borderline enlarged up to 1 cm compatible with reactive change. There are also incidental calcified new style nodes. No axillary adenopathy. The visualized portions of the liver are normal. The spleen contains numerous granulomas. The gallbladder is surgically absent. No significant bony findings. Procedure Note Devin Hayes MD - 07/03/2020 CT angiogram chest with contrast, outside consultation DATE: 07/01/2020. INDICATION: Shortness of breath. TECHNIQUE: Multidetector nonenhanced chest CT angiography performed at [facility] on 07/01/2020. COMPARISONS: Chest CT from 12/12/2013. FINDINGS: Overall exam quality is moderate to good for evaluating the pulmonary arteries due to contrast bolus intensity and history motion. There are no convincing intraluminal filling defects indicate pulmonary embolism. However there are multifocal patchy peripheral groundglass opacities in both the upper and lower lobes with areas of subpleural consolidation in the lung bases. There is no pleural effusion. Mediastinal nodes are borderline enlarged up to 1 cm compatible with reactive change. There are also incidental calcified new style nodes. No axillary adenopathy. The visualized portions of the liver are normal. The spleen contains numerous granulomas. The gallbladder is surgically absent. No significant bony findings. IMPRESSION 1. No pulmonary embolism. 2. Multifocal bilateral infiltrates with areas of consolidation. The overall pattern is suspicious for COVID-19 pneumonia. *Reading Radiologist: Devin Hayes on 07/03/2020 at 3:23 PM [address] MD CT ORDERABLES * TROPONIN I (07/01/2020 10:55 PM CDT) Only the most recent of10 resultswithin the time period is included. Troponin I <0.010 <0.038 ng/mL 07/01/2020 11:28 PM CDT [facility] Blood BLOOD SPECIMEN / Unknown Lab Venipuncture / Unknown 07/01/2020 10:55 PM CDT 07/01/2020 11:00 PM CDT Mercedes Haider APRN-NUCLEAR OPERATIONS SPECIALIST LAB - CHEMIS TRY ORDERABLES [facility] [address] [place] [address] * (ABNORMAL) DIFFERENTIAL MANUAL (07/01/2020 5:25 PM CDT) Only the most recent of2 resultswithin the time period is included. WBC Auto 7.6 x10E9/L 07/01/2020 6:12 PM CDT [facility] WBC Corrected 07/01/2020 6:12 PM CDT [facility] nRBC 07/01/2020 6:12 PM CDT [facility] Neutrophil % Manual 64 44 - 73 % 07/01/2020 6:12 PM CDT [facility] Lymphocytes % Manual 22 20 - 43 % 07/01/2020 6:12 PM CDT [facility] Monocytes % Manual 8 5 - 13 % 07/01/2020 6:12 PM CDT [facility] Atypical Lymphocyte % Manual 6(H) <=0 % 07/01/2020 6:12 PM CDT [facility] Cells Counted 100 # cells 07/01/2020 6:12 PM CDT [facility] RBC Morphology Normal 07/01/2020 6:12 PM CDT [facility] WBC Morph Normal 07/01/2020 6:12 PM CDT [facility] Platelet Estimation Normal 07/01/2020 6:12 PM CDT [facility] Blood BLOOD SPECIMEN / Unknown Venipuncture / Unknown 07/01/2020 5:25 PM CDT 07/01/2020 5:29 PM CDT Mercedes Haider APRN-NUCLEAR OPERATIONS SPECIALIST LAB - HEMATO LOGY ORDERABLES [facility] [address] [place] [address] * (ABNORMAL) SARS-COV-2 (COVID-19) IN HOUSE (06/18/2020 4:23 PM CDT) Pathologist [facility] COVID-19 PCR Detected( AA) Not detected 06/19/2020 6:11 AM CDT [facility] Microbiology SPECIMEN FROM NASOPHARYNGEAL STRUCTURE / Unknown Collection / Unknown 06/18/2020 4:23 PM CDT 06/18/2020 4:23 PM CDT Narrative [facility] - 06/19/2020 6:11 AM CDT This nucleic acid amplification assay performance was validated by [facility]. This test has been authorized by the Food and Drug administration (FDA)under an Emergency Use Authorization (EUA). This test has been validated in accordance with the FDA's guidance document Policy for Diagnostic Testing in Laboratories Certified to perform High Complexity Testing under CLIA prior to Emergency Use Authorization for Coronavirus Disease-2019 during the Public Health Emergency issued on April 16, 2019. FDA independent review of this validation is pending. This test is only authorized for the duration of time the declaration that circumstances exist justifying the authorization of emergency use of in vitro diagnostic tests for detection of SARS-CoV-2 virus and/or diagnosis of COVID-19 infection under section 564(b)(1) of the Act, 21 U.S.C 360bbb-3 (b)(1), unless the authorization is terminated or revoked sooner. Fact Sheets for this EUA assay are available upon request. Mercedes Collins MD LAB - MICROBIOLOGY O RDERABLES [facility] [address] [place] [address], [facility] [phone] * HIV-1 HIV-2 ANTIBODY + HIV P24 AG PANEL (02/24/2020 8:11 AM GRADES 1 THRU 5 TEACHER) Pathologist [facility] HIV Screen 4th Generation w Reflex Non Reactive Non Reactive [facility] INSURANCE BILL Blood BLOOD SPECIMEN / Unknown 02/24/2020 8:11 AM GRADES 1 THRU 5 TEACHER 02/24/2020 Narrative Resulting Agency Comment Lab Testing performed at: [facility] [address] [facility] [phone] Mercedes Collins MD LAB - CHEMISTRY RORY NANETTEMARYBETH Performing Organization Address City/[facility]/ZIP Co de Phone Number [facility] INSURANCE BILL [address] [place] [address] * HEPATITIS B SURFACE ANTIGEN W RFLX CONFIRMATION (02/24/2020 8:11 AM GRADES 1 THRU 5 TEACHER) Hepatitis B Virus Surface Antigen Negative Negative [facility] INSURANCE BILL Comment:FASTING Blood BLOOD SPECIMEN / Unknown 02/24/2020 8:11 AM GRADES 1 THRU 5 TEACHER 02/24/2020 Narrative Resulting Agency Comment Lab Testing performed at: [facility] [address] [facility] [phone] Mercedes Collins MD LAB - CHEMISTRY RORY NANETTEMARYBETH Performing Organization Address [facility] Co de Phone Number [facility] INSURANCE BILL [address] [place] [address] * HOLTER MONITOR (04/20/2019) Only the most recent of2 resultswithin the time period is included. Impressions France Vick - 04/20/2019 [facility] - Heart & Vascular - Holter Monitor Name: Pola Turner : 1960 Primary Care Physician:Mercedes Collins MD Referring Physician: Marcos Banks MD Clinical Indication: Tachycardia. A 48h holter was placed on 04/06/19. Findings: 48 hour holter demonstrates sinus rhythm with an average heart rate of 88 bpm. The minimum HR was 57 bpm at 3:30am and the maximum HR was 147 bpm at 8:16am. There were 232 isolated ventricular premature complexes and 4 isolated atrial premature complexes. There were no significant arrhythmias. The patient recorded 3 episodes of palpitations. Corresponding strips demonstrate sinus. Conclusion: 1. Sinus rhythm with very rare isolated APCs and PVCs. 2. There were no significant arrhythmias. 3. The patient recorded 3 episodes of palpitations. Corresponding strips demonstrate sinus. Thank you. Please do not hesitate to call if there are any questions. Marcos Bansk MD [facility] Health - Heart & Vascular Care Office Mercedes Collins MD CARDIAC SERVICES ORD ERABLES * HEPATITIS B SURFACE ANTIBODY (04/06/2019 9:54 AM GRADES 1 THRU 5 TEACHER) Pathologist [facility] Hepatitis B Virus Surface Antibody Reactive [facility] INSURANCE BILL Comment: Non Reactive: Inconsistent with immunity, less than 10 mIU/mL Reactive: Consistent with immunity, greater than 9.9 mIU/mL Blood BLOOD SPECIMEN / Unknown 04/06/2019 9:54 AM GRADES 1 THRU 5 TEACHER 04/06/2019 Narrative Resulting Agency Comment Lab Testing performed at: [email or web address] [phone] Mercedes Collins MD LAB - CHEMISTRY RORY [place] Performing Organization Address City/[facility] Co de Phone Number [facility] INSURANCE BILL [address] [place] [address] * TSH (04/06/2019 9:54 AM GRADES 1 THRU 5 TEACHER) Only the most recent of4 resultswithin the time period is included. Pathologist [facility] TSH 1.660 0.450 - 4.500 uIU/mL [facility] INSURANCE BILL Comment:FASTING Blood BLOOD SPECIMEN / Unknown 04/06/2019 9:54 AM GRADES 1 THRU 5 TEACHER 04/06/2019 Narrative Resulting Agency Comment Lab Testing performed at: [email or web address] [phone] Mercedes Collins MD LAB - CHEMISTRY RORY [place] Performing Organization Address City/[facility] Co de Phone Number [facility] INSURANCE BILL [address] [place] [address] * T4 FREE (04/06/2019 9:54 AM GRADES 1 THRU 5 TEACHER) Only the most recent of3 resultswithin the time period is included. Pathologist [facility] T4 Free 1.34 0.82 - 1.77 ng/dL [facility] INSURANCE BILL Comment:FASTING Blood BLOOD SPECIMEN / Unknown 04/06/2019 9:54 AM GRADES 1 THRU 5 TEACHER 04/06/2019 Narrative Resulting Agency Comment Lab Testing performed at: [email or web address] [phone] Mercedes Collins MD LAB - CHEMISTRY ROYAMacario FIT[facility]PATRICKMARYB[facility] Organization Address City/State/ZIP Co de Phone Number [facility] [place] [address] * MAMMO BILAT SCREENING (03/29/2019 2:03 PM GRADES 1 THRU 5 TEACHER) Only the most recent of7 resultswithin the time period is included. Anatomical Region Laterality Modality Breast Bilateral Mammography 03/29/2019 3:35 PM GRADES 1 THRU 5 TEACHER Impressions 03/29/2019 3:38 PM GRADES 1 THRU 5 TEACHER No mammographic evidence of malignancy in either breast. ASSESSMENT: BIRADS Category 1: Negative mammogram. RECOMMENDATION: Bilateral screening mammogram in one year. Thank you for allowing us to participate in the care of your patient. [facility] Breast [facility] [place] utilizes [employer] as a reminder system to notify patients of their next recommended mammogram. Reading Radiologist: Ladan Hernandez MD on 03/29/2019 at 3:38 PM Narrative 03/29/2019 3:38 PM GRADES 1 THRU 5 TEACHER EXAMINATION: Digital screening mammogram. Low-dose full-field digital breast tomosynthesis examination was performed with synthetic 2D images and 3D acquisitions. Computer assisted detection was utilized. DATE: 03/29/2019 PRIOR: 01/29/2018 and prior mammograms dating back to 11/09/2014. BREAST PARENCHYMAL DENSITY: The breasts are almost entirely fatty. RISK ASSESSMENT CALCULATION: Not performed. FINDINGS: No suspicious masses, areas of architectural distortion or microcalcifications are evident on synthetic 2D mammogram or tomosynthesis images. There has been no significant interval change since the prior examination. Mercedes Collins MD MAMMO ORDERABLES * IMAGING/RADIOLOGY/XRAY RESULTS ORDER (04/14/2018) Only the most recent of5 resultswithin the time period is included. Anatomical Region Laterality Modality Other Britton uBrden MD IMAGING * DC US PELVIC NONOB REAL-TIME IMG COMPLETE, US TRANSVAGINAL NON OB (03/08/2018 9:21 AM GRADES 1 THRU 5 TEACHER) Anatomical Region Laterality Modality Abdomen Ultrasound Narrative 03/08/2018 9:21 AM GRADES 1 THRU 5 TEACHER Sofia Wang 02/15/2018 12:05 PM Documentation in digisonics. Procedure Note Sofia Wang - 02/15/2018 12:05 PM CST Documentation in digisonics. Peterson Nance MD US ORDERABLES * TSH HI LOW REFLEX FREE T4 (10/26/2017 3:46 PM CDT) Only the most recent of2 resultswithin the time period is included. TSH 2.510 0.450 - 4.500 uIU/mL [facility] INSURANCE BILL Blood BLOOD SPECIMEN / Unknown 10/26/2017 3:46 PM CDT 10/26/2017 Narrative Resulting Agency Comment [facility] [place] [address] [facility] [phone] Mercedes Collins MD LAB - CHEMISTRY RORY DALTON [facility] INSURANCE BILL [address] [place] [address] * CLOSTRIDIUM DIFFICILE TOXIN A+B (02/26/2017 11:42 AM GRADES 1 THRU 5 TEACHER) Only the most recent of2 resultswithin the time period is included. C difficile Toxin A + B Negative Negative [facility] INSURANCE BILL Stool STOOL SPECIMEN / Unknown 02/26/2017 11:42 AM GRADES 1 THRU 5 TEACHER 02/26/2017 Narrative Resulting Agency [facility] [address] [facility] [phone] Mercedes Collins MD LAB - MICROBIOLOGY O RDGERALDINE [facility] INSURANCE BILL [address] [place] [address] * CULTURE STOOL PANEL (02/26/2017 11:42 AM GRADES 1 THRU 5 TEACHER) Only the most recent of2 resultswithin the time period is included. Salmonella/Shigel la Screen Final report [facility] INSURANCE BILL Result 1 [facility] INSURANCE BILL Comment:No Salmonella or Daly gella recovered. Campylobacter Culture Final report [facility] INSURANCE BILL Result 1 [facility] INSURANCE BILL Comment:No Campylobacter spe cies isolated. E coli Shiga Toxin EIA Negative Negative [facility] INSURANCE BILL Stool STOOL SPECIMEN / Unknown 02/26/2017 11:42 AM GRADES 1 THRU 5 TEACHER 02/26/2017 Narrative Resulting Agency Comment [facility] [address] [facility] [phone] Mercedes Collins MD LAB - MICROBIOLOGY O RDERABLES [facility] INSURANCE BILL [address] [place] [address] * TSH (EXTERNAL RESULT ENTRY) (08/13/2016) Blood BLOOD SPECIMEN / Unknown Scanned Document LAB - CHEMISTRY ROYAMacario SHA * ENDOSCOPY, COLON, SCREENING (01/25/2016 9:18 AM GRADES 1 THRU 5 TEACHER) Report Endoscopy POC _ Patient Name: Pola [...] colon cancer. Procedure Code(s): --- Professional --- 55491, Colonoscopy, flexible; diagnostic, including collection of specimen(s) by brushing or washing, when performed (separate procedure) --- Technical --- 14853, Colonoscopy, flexible; diagnostic, including collection of specimen(s) [...] or abscess without bleeding CPT copyright 2015 [employer]. All rights reserved. The codes documented in this report are preliminary and upon porcelain buildup assistant review may be revised to meet current compliance requirements. Nikita Fraser MD 01/25/2016 9:58:01 AM This report has been signed electronically. Number of Addenda: 0 Note Initiated On: 01/25/2016 9:18 AM [facility] END[facility] 01/25/2016 9:18 AM GRADES 1 THRU 5 TEACHER Nikita Fraser MD GI PROCEDURE ORDERAB LES [facility] * (ABNORMAL) LUPUS ANTICOAGULANT PANEL (11/09/2014 2:20 PM CDT) Only the most recent of2 resultswithin the time period is included. PTT Heparin Neutralized Not Applicable 32 - 48 sec 11/11/2014 10:06 PM CDT [facility]) PT (Lupus Anticoag) 23.6(H) 12.0 - 15.5 sec 11/11/2014 10:06 PM CDT [facility] ([facility]) PTT Lupus Anticoagulant 54(H) 32 - 48 sec 11/11/2014 10:06 PM CDT [facility] ([facility]) Thrombin Time 18.1 14.7 - 19.5 sec 11/11/2014 10:06 PM CDT [facility] ([facility]) Reptilase Time Not Applicable <=21.9 sec 11/11/2014 10:06 PM CDT [facility]) PTT 1/1 Mix 47 32 - 48 sec 11/11/2014 10:06 PM CDT [facility] ([facility]) Platelet Neutralization Not Applicable Negative 11/11/2014 10:06 PM CDT [facility] ([facility]) dRVVT 68(H) 33 - 44 sec 11/11/2014 10:06 PM CDT [facility] ([facility]) dRVVT 1:1 Mix 57(H) 33 - 44 sec 11/11/2014 10:06 PM CDT [facility] ([facility]) dRVVT Confirmatory Test Negative Negative ratio 11/11/2014 10:06 PM CDT [facility] ([facility]) Hexagonal Phospholipid Neutral Negative Negative 11/11/2014 10:06 PM CDT [facility] ([facility]) Interpretation Lupus Anticoagulant See Note 11/11/2014 10:06 PM CDT [facility] ([facility]) Comment: Lupus anticoagulant not detected. The DRVVT is prolonged and does not correct in a 1:1 mix with pooled normal plasma. This pattern indicates the presence of an inhibitor. However, the DRVVT does not demonstrate phospholipid-dependence in the confirmatory test containing excess phospholipid or in the hexagonal phospholipid neutralization test. Possibilities include a specific factor inhibitor or a lupus anticoagulant not detected with this testing panel. The PTT is prolonged and corrects in a 1:1 mix with pooled normal plasma. This pattern can be seen with factor deficiency or weak inhibitors that are diluted in the mixing study. Lupus anticoagulant antibodies are heterogeneous and antibody titers fluctuate over time. Laboratory tests used to identify lupus anticoagulants demonstrate variable sensitivity. If there is strong clinical suspicion for antiphospholipid antibody syndrome (APS), consider testing for cardiolipin and beta-2 glycoprotein 1 antibodies (IgG and IgM) if this testing has not already been performed. Blood specimen (specimen) BLOOD SPECIMEN / Unknown Lab Venipuncture / Unknown 11/09/2014 2:20 PM CDT 11/09/2014 2:24 PM CDT Radha Watts COMPUTER LAB ASSISTANT-NUCLEAR OPERATIONS SPECIALIST LAB - HEMATOLOG Y ORDERABLES Performing Organization Address City/State/[facility] Co de Phone Number [facility] ([facility]) [address] * D-DIMER (11/09/2014 2:20 PM CDT) Only the most recent of2 resultswithin the time period is included. D-Dimer 0.22 0.17 - 0.5 mg/L FEU 11/09/2014 2:49 PM CDT [facility] Blood BLOOD SPECIMEN / Unknown Lab Venipuncture / Unknown 11/09/2014 2:20 PM CDT 11/09/2014 2:24 PM CDT Narrative [facility] - 11/09/2014 2:49 PM CDT The [employer] D-Dimer assay is intended for use as an aid in diagnosis of venous thromboembolism [(VTE): deep vein thrombosis (DVT), pulmonary embolism (PE), and disseminated intravascular coagulation (DIC)], and has received FDA approval to exclude VTE in patients with low or moderate pretest probability of PE or DVT (per Wells' rules). At a clinical cut-off value 0.50 mg/L FEU, the Negative Predictive Value of this assay is 99.8% for excluding PE and 100% for excluding DVT. A very low percentage of patients with VTE may yield D-Dimer results below the cut-off value. An elevated D-Dimer result has low specificity (40.4% for PE, 35.5% for DVT) and is a poor predictor of VTE. An elevated D-Dimer result may indicate DIC in the appropriate clinical setting. Results of this test should always be interpreted in conjunction with the patient's medical history, clinical presentation, and other findings. Radha Watts APRN-NUCLEAR OPERATIONS SPECIALIST LAB - COAGULATI ON ORDERABLES Performing Organization Address City/[facility] Co de Phone Number [facility] [address] [place] [address] * PATHOLOGY/GENETICS HISTORICAL-ONBASE (05/17/2014) 05/17/2014 Narrative [facility] - 05/22/2014 12:35 PM CDT Peterson Nance MD LAB - CHEMISTRY RORY DALTON Performing Organization Address City/[facility] Co de Phone Number [facility] [address] * INFLUENZA A+B ANTIGEN RAPID (12/23/2013 3:38 PM GRADES 1 THRU 5 TEACHER) [facility] Influenza A Antigen Negative Negative 12/23/2013 3:57 PM GRADES 1 THRU 5 TEACHER [facility] Influenza B Antigen Negative Negative 12/23/2013 3:57 PM GRADES 1 THRU 5 TEACHER [facility] Microbiology NASOPHARYNGEAL SWAB / Unknown 12/23/2013 3:38 PM GRADES 1 THRU 5 TEACHER 12/23/2013 3:42 PM GRADES 1 THRU 5 TEACHER Narrative [facility] - 12/23/2013 3:57 PM GRADES 1 THRU 5 TEACHER The sensitivity of rapid tests for influenza A and B antigens, according to the published reports , ranges from 30-70% when compared to PCR and viral culture. For H1N1 influenza A, the sensitivity varies from 30-50%. For other influenza A strains, the sensitivity ranges from 50-70%. For influenza B virus, the sensitivity is approximately 30%. A negative result does not exclude influenza infection. False-positive (and true-negative) influenza test results are more likely to occur when disease prevalence is low, which is generally at the beginning and end of the influenza season. False-negative (and true-positive) influenza test results are more likely to occur when disease prevalence is high, which is typically at the height of the influenza season. Hans Velasco MD LAB - MICROBIOLOGY ORDERABLES Performing Organization Address [facility] Co de Phone Number [facility] [address] [place] [address] * (ABNORMAL) PT PTT PANEL (12/23/2013 11:55 AM GRADES 1 THRU 5 TEACHER) Only the most recent of5 resultswithin the time period is included. PT 12.3(H) 9.5 - 11.6 sec 12/23/2013 12:21 PM GRADES 1 THRU 5 TEACHER [facility] INR 1.18(H) 0.9 - 1.1 12/23/2013 12:21 PM GRADES 1 THRU 5 TEACHER [facility] PTT 26.8 21.0 - 32.0 sec 12/23/2013 12:21 PM GRADES 1 THRU 5 TEACHER [facility] Blood BLOOD SPECIMEN / Unknown 12/23/2013 11:55 AM GRADES 1 THRU 5 TEACHER 12/23/2013 11:59 AM GRADES 1 THRU 5 TEACHER Narrative [facility] - 12/23/2013 12:21 PM GRADES 1 THRU 5 TEACHER Conventional Anticoagulant Therapy INR Reference Ranges: 2.0-3.0 Intensive Anticoagulant Therapy INR Reference Ranges: 2.5-3.5 Therapeutic Range for PTT: 44.4 - 78.3 seconds. Magaly ARAIZA LAB - COAGULATION OR DERABLES Performing Organization Address [facility] de Phone Number [facility] [address] [place] [address] * CT PE CHEST (12/12/2013 4:10 PM CDT) Only the most recent of2 resultswithin the time period is included. Anatomical Region Laterality Modality Chest Computed Tomogra phy 12/12/2013 4:22 PM CDT Narrative 12/12/2013 4:[address] angiogram chest History: Shortness of breath and HISTORY of prior pulmonary embolism TECHNIQUE: Multiple contiguous axial to the chest were obtained following intravenous administration 100 cc of Omnipaque 350. Comparison is made to 03/03/2013 The heart size is stable. There is no pericardial effusion. The pulmonary arteries enhance normally. There is no evidence of acute pulmonary embolism The lungs are clear. There is no pleural effusion or pneumothorax The visualized structures the upper abdomen demonstrate fatty enlarged liver DIAGNOSIS: Fatty enlarged liver Otherwise negative. There is no pulmonary embolism. Procedure Note José Miguel Garcia MD - 12/12/2013 CT angiogram chest History: Shortness of breath and HISTORY of prior pulmonary embolism TECHNIQUE: Multiple contiguous axial to the chest were obtained following intravenous administration 100 cc of Omnipaque 350. Comparison is made to 03/03/2013 The heart size is stable. There is no pericardial effusion. The pulmonary arteries enhance normally. There is no evidence of acute pulmonary embolism The lungs are clear. There is no pleural effusion or pneumothorax The visualized structures the upper abdomen demonstrate fatty enlarged liver DIAGNOSIS: Fatty enlarged liver Otherwise negative. There is no pulmonary embolism. Juju ARAIZA CT ORDERABLES * CREATININE BLOOD - POINT OF CARE (IP) (10/27/2013 12:24 PM CDT) Creatinine POCT 0.97 0.7 - 1.2 mg/dL [facility] POCT TESTING QC Verified Yes Yes [facility] POC T TESTING Blood specimen (specimen) BLOOD SPECIMEN / Unknown 10/27/2013 12:24 PM CDT Nikita Fraser MD LAB - POINT OF CARE ORDERABLES [facility] POCT TESTING [address] * (ABNORMAL) CK BLOOD (04/29/2013 4:25 PM CDT) CK 189(H) 24 - 173 U/L [facility] INSURANCE BILL Blood specimen (specimen) BLOOD SPECIMEN / Unknown 04/29/2013 4:25 PM CDT 04/29/2013 6:27 PM CDT Narrative Resulting Agency Comment [facility] [place] [id number] [facility] [phone] Krish Woodard MD LAB - CHEMISTRY ORDE SHA [facility] INSURANCE BILL * HIGH SPECIFICITY ANTIPHOSPHOLIPID ANTIBODY PANEL (03/05/2013 3:42 AM GRADES 1 THRU 5 TEACHER) High Specificity Antiphospholipid Antibody IgG 4 0 - 14 GPL 03/06/2013 8:33 PM GRADES 1 THRU 5 TEACHER [facility] Comment: INTERPRETIVE INFORMATION: High-Specificity Antiphospholipid Antibody, IgG 14 GPL or less......Negative 15 26 GPL.........Indeterminate Suggest repeat testing in 12 weeks 27 GPL or greater...Positive High-specificity antiphospholipid IgG and IgM antibodies are directed against a mixture of phosphatidylserine, phosphatidic acid, and beta-2 glycoprotein 1 antigens. These antibodies are more specific than cardiolipin IgG and IgM antibodies in the diagnosis of antiphospholipid syndrome (APS). High Specificity Antiphospholipid Antibody IgG 3 0 - 14 MPL 03/06/2013 8:33 PM GRADES 1 THRU 5 TEACHER [facility] Comment: INTERPRETIVE INFORMATION: High-Specificity Antiphospholipid Antibody, IgM 14 MPL or less......Negative 15 37 MPL.........Indeterminate Suggest repeat testing in 12 weeks 38 MPL or greater...Positive High-specificity antiphospholipid IgG and IgM antibodies are directed against a mixture of phosphatidylserine, phosphatidic acid, and beta-2 glycoprotein 1 antigens. These antibodies are more specific than cardiolipin IgG and IgM antibodies in the diagnosis of antiphospholipid syndrome (APS). Blood specimen (specimen) BLOOD SPECIMEN / Unknown Lab Venipuncture / Unknown 03/05/2013 3:42 AM GRADES 1 THRU 5 TEACHER 03/05/2013 3:53 AM GRADES 1 THRU 5 TEACHER Krish Woodard MD LAB - SEROLOGY ORDER RADHA [facility] [address] [place] [address] * PROTHROMBIN [id number] PANEL (03/05/2013 3:42 AM GRADES 1 THRU 5 TEACHER) Prothrombin [id number] Negative 03/09/2013 5:51 PM GRADES 1 THRU 5 TEACHER [facility] Comment: Indication for testing: Assess genetic risk for thrombosis. NEGATIVE: The Factor II, prothrombin Q26733C mutation, was not detected. Other causes of elevated prothrombin levels and hereditary forms of venous thrombosis have not been excluded. Recommendations: If clinically indicated, testing for other inherited or acquired thrombophilic disorders is recommended including DNA testing for the factor V Leiden mutation, measurement of total plasma homocysteine concentration, serological assays for anticardiolipin antibodies, multiple phospholipid-dependent coagulation assays for lupus inhibitor, protein C activity, protein S activity or free protein S antigen, and antithrombin activity. This result has been reviewed and approved by Rehana Willis, Ph.D. 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 The expression of Factor II thrombophilia is impacted by coexisting genetic thrombophilic disorders, acquired thrombophilic disorders (eg malignancy, hyperhomocysteinemia, high Factor VIII levels), and circumstances including: , oral contraceptive use, hormone replacement therapy, selective estrogen receptor modulators, travel, central venous catheters, surgery, and organ transplantation. INCIDENCE: Approximately 2-5 percent of Caucasians and 0.3 percent of Americans are heterozygous; homozygosity occurs in 1 in 10,000 individuals. INHERITANCE: Incomplete autosomal dominant. PENETRANCE: The risk of thrombosis is increased 2-4 fold for heterozygotes and further increased for homozygotes. CAUSE: Homozygosity or heterozygosity for F2 c.26315N>A (H33280O). MUTATION TESTED: F2 c.18930O>A (O44060Y). CLINICAL SENSITIVITY FOR VENOUS THROMBOSIS: Approximately 10 percent. METHODOLOGY: Polymerase chain reaction and fluorescence monitoring. ANALYTICAL SENSITIVITY AND SPECIFICITY: 99 percent. LIMITATIONS: Diagnostic errors can occur due to rare sequence variations. F2 gene mutations, other than P20349C, will not be detected. Test developed and characteristics determined by [employer]. See Compliance Statement C: [employer]/CS Source PT [id number] PCR Whole Blood 03/09/2013 5:51 PM GRADES 1 THRU 5 TEACHER [employer] Blood specimen (specimen) BLOOD SPECIMEN / Unknown Lab Venipuncture / Unknown 03/05/2013 3:42 AM GRADES 1 THRU 5 TEACHER 03/05/2013 3:53 AM GRADES 1 THRU 5 TEACHER Krish Woodard MD LAB - COAGULATION OR DERABLES [facility] [address] [place] [address] * FACTOR V LEIDEN MUTATION PANEL (03/05/2013 3:42 AM GRADES 1 THRU 5 TEACHER) Factor V Leiden PCR/FRET Negative 03/07/2013 10:56 PM GRADES 1 THRU 5 TEACHER [facility] [employer] Comment: Indication for testing: Assess genetic risk for thrombosis. NEGATIVE: The factor V Leiden mutation, R506Q, was not detected. This result has been reviewed and approved by Cordell Love, Ph.D. BACKGROUND INFORMATION: Factor V Leiden (F5) R506Q Mutation CHARACTERISTICS: Factor V Leiden mutation is the most common cause of inherited thrombophilia and accounts for over 90 percent of activated protein C resistance. The expression of Factor V Leiden thrombophilia is impacted by coexisting genetic thrombophilic disorders, acquired thrombophilic disorders (malignancy, hyperhomocysteinemia, high factor VIII levels), and circumstances including: , oral contraceptive use, hormone replacement therapy, selective estrogen receptor modulators, travel, central venous catheters, surgery, transplantation and advanced age. INCIDENCE: Approximately 5 percent of Caucasians, 2 percent of Hispanics, 1 percent of Americans and [place] Americans and 0.5 percent of Asians are heterozygous; homozygosity occurs in 1 in 5000 individuals. INHERITANCE: Incomplete autosomal dominant. PENETRANCE: Lifetime risk of thrombosis is 10 percent for heterozygotes and 80 percent of homozygotes. CAUSE: A deleterious F5 gene mutations R506Q (1691G>A) Note: Standardized nomenclature for the Factor V Leiden mutation is c.1601G>A ([id number]). CLINICAL SENSITIVITY AND SPECIFICITY: 99 percent. METHODOLOGY: Polymerase chain reaction and fluorescence monitoring. ANALYTICAL SENSITIVITY AND SPECIFICITY: 99 percent. LIMITATIONS: Diagnostic errors can occur due to rare sequence variations. F5 gene mutations, other than R506Q, will not be detected. Test developed and characteristics determined by [employer]. See Compliance Statement C: [employer] Factor V Leiden Source Whole Blood 03/07/2013 10:56 PM GRADES 1 THRU 5 TEACHER [facility] [employer] Blood specimen (specimen) BLOOD SPECIMEN / Unknown Lab Venipuncture / Unknown 03/05/2013 3:42 AM GRADES 1 THRU 5 TEACHER 03/05/2013 3:53 AM GRADES 1 THRU 5 TEACHER Krish Woodard MD LAB - COAGULATION OR DERABLES [facility] [address] [place] [address] * HOMOCYSTEINE BLOOD QUANTITATIVE (03/05/2013 3:42 AM GRADES 1 THRU 5 TEACHER) Homocysteine 6.5 5.0 - 13.9 umol/L 03/05/2013 4:41 AM [facility] Blood BLOOD SPECIMEN / Unknown Lab Venipuncture / Unknown 03/05/2013 3:42 AM GRADES 1 THRU 5 TEACHER 03/05/2013 3:57 AM GRADES 1 THRU 5 TEACHER Krish Woodard MD LAB - CHEMISTRY [facility] [address] [place] [address] * (ABNORMAL) URINALYSIS ROUTINE W/REFLEX TO CULTURE (03/04/2013 3:27 AM GRADES 1 THRU 5 TEACHER) Color UA Yellow Straw, Yellow, Dark Yellow 03/04/2013 3:53 AM [facility] Clarity UA Clear 03/04/2013 3:53 AM [facility] Specific [place] UA >=1.031(H) 1.005 - 1.030 03/04/2013 3:53 AM [facility] pH UA 6.5 5.0 - 8.0 pH 03/04/2013 3:53 AM [facility] Protein UA Negative Negative 03/04/2013 3:53 AM [facility] Blood UA Negative Negative 03/04/2013 3:53 AM [facility] Leukocyte UA Negative Negative 03/04/2013 3:53 AM [facility] Nitrite UA Negative Negative 03/04/2013 3:53 AM [facility] Glucose UA Negative Negative 03/04/2013 3:53 AM [facility] Ketone UA Negative Negative 03/04/2013 3:53 AM [facility] Bilirubin UA Negative Negative 03/04/2013 3:53 AM [facility] Urobilinogen UA 0.2 0.1 - 1.0 EU/dL 03/04/2013 3:53 AM [facility] Reflex Status Culture not indicated 03/04/2013 3:53 AM [facility] Urine URINE SPECIMEN OBTAINED BY CLEAN CATCH PROCEDURE / Unknown Collection / Unknown 03/04/2013 3:27 AM GRADES 1 THRU 5 TEACHER 03/04/2013 3:41 AM GRADES 1 THRU 5 TEACHER Laura Valentin COMPUTER LAB ASSISTANT-NUCLEAR OPERATIONS SPECIALIST LAB - URINALY SIS ORDERABLES Performing Organization Address City/[facility] Co de Phone Number [facility] [address] [place] [address] * CORTISOL BLOOD AM (03/04/2013 3:08 AM GRADES 1 THRU 5 TEACHER) Cortisol AM 5.44 4.3 - 22.4 ug/dL 03/04/2013 4:26 AM GRADES 1 THRU 5 TEACHER [facility] Blood BLOOD SPECIMEN / Unknown Lab Venipuncture / Unknown 03/04/2013 3:08 AM GRADES 1 THRU 5 TEACHER 03/04/2013 3:20 AM GRADES 1 THRU 5 TEACHER Laura Valentin APRN-NUCLEAR OPERATIONS SPECIALIST LAB - BURLAPPER RY ORDERABLES Performing Organization Address [facility] [place] [facility] de Phone Number [facility] [address] [place] [address] * CT ANGIO CHEST CT ABD PELVIS W (03/03/2013 6:26 PM GRADES 1 THRU 5 TEACHER) Anatomical Region Laterality Modality Computed Tomogra phy 03/03/2013 6:34 PM GRADES 1 THRU 5 TEACHER Impressions 03/03/2013 6:49 PM GRADES 1 THRU 5 TEACHER 1. Segmental pulmonary embolism in the artery to the right lower lobe with no distal infarct. 2. Minimal bibasilar atelectasis. 3. Diffusely low attenuated liver likely represents fatty infiltration. 4. Sequela of old granulomatous disease. 5. Calcified uterine fibroid Results were discussed with Dr. Shearer at 6:42 PM same day as exam. Narrative 03/03/2013 6:49 [address]ES [address] angio chest INDICATION: Shortness of breath and chest pain with abdominal distention COMPARISON:CT abdomen September 26, 2011 TECHNIQUE: Multidetector CT images were obtained through the chest after 100 cc of Omnipaque-350. Coronal and sagittal reconstructions were provided. 3-D images were also provided. CT abdomen pelvis was performed subsequently for abdominal distention without oral contrast. FINDINGS: CHEST: There is a filling defect within the segmental pulmonary artery to the right lower lobe. No additional filling defects are identified. There are no signs of right ventricular strain. Heart is normal in size without pericardial effusion. There are calcified left hilar lymph nodes. Otherwise, there is no mediastinal, hilar or axillary lymphadenopathy. There is no pneumothorax or pleural effusion. There is mild bibasilar atelectasis. There is no pulmonary infarct identified. There is no mass or consolidation. ABDOMEN/PELVIS: Liver is diffusely low in attenuation. There is been a prior cholecystectomy. The adrenal glands, kidneys and pancreas are unremarkable. There are calcified granulomas of the spleen. The bowel in the upper abdomen is unremarkable. There is no lymphadenopathy or free fluid. The appendix is normal. The bowel within the inferior abdomen is unremarkable. There is debris which is hyperdense within the urinary bladder likely representing mixing from excreted contrast. There is calcified left uterine fibroid. There is mild degenerative disease of the lumbar spine Procedure Note Chago Donnelly MD - 03/03/2013 CT angio chest INDICATION: Shortness of breath and chest pain with abdominal distention COMPARISON:CT abdomen September 26, 2011 TECHNIQUE: Multidetector CT images were obtained through the chest after 100 cc of Omnipaque-350. Coronal and sagittal reconstructions were provided. 3-D images were also provided. CT abdomen pelvis was performed subsequently for abdominal distention without oral contrast. FINDINGS: CHEST: There is a filling defect within the segmental pulmonary artery to the right lower lobe. No additional filling defects are identified. There are no signs of right ventricular strain. Heart is normal in size without pericardial effusion. There are calcified left hilar lymph nodes. Otherwise, there is no mediastinal, hilar or axillary lymphadenopathy. There is no pneumothorax or pleural effusion. There is mild bibasilar atelectasis. There is no pulmonary infarct identified. There is no mass or consolidation. ABDOMEN/PELVIS: Liver is diffusely low in attenuation. There is been a prior cholecystectomy. The adrenal glands, kidneys and pancreas are unremarkable. There are calcified granulomas of the spleen. The bowel in the upper abdomen is unremarkable. There is no lymphadenopathy or free fluid. The appendix is normal. The bowel within the inferior abdomen is unremarkable. There is debris which is hyperdense within the urinary bladder likely representing mixing from excreted contrast. There is calcified left uterine fibroid. There is mild degenerative disease of the lumbar spine IMPRESSION 1. Segmental pulmonary embolism in the artery to the right lower lobe with no distal infarct. 2. Minimal bibasilar atelectasis. 3. Diffusely low attenuated liver likely represents fatty infiltration. 4. Sequela of old granulomatous disease. 5. Calcified uterine fibroid Results were discussed with Dr. Shearer at 6:42 PM same day as exam. Kaitlin Shearer MD CT ORDERABLES * (ABNORMAL) PTT (03/03/2013 3:49 PM GRADES 1 THRU 5 TEACHER) PTT 23.7(L) 24.0 - 33.0 sec 03/03/2013 4:23 PM GRADES 1 THRU 5 TEACHER [facility] Blood BLOOD SPECIMEN / Unknown Venipuncture / Unknown 03/03/2013 3:49 PM GRADES 1 THRU 5 TEACHER 03/03/2013 3:55 PM GRADES 1 THRU 5 TEACHER Radha Liz APRN-NUCLEAR OPERATIONS SPECIALIST LAB - COAGULATIO N ORDERABLES Performing Organization Address City/[facility]/ZIP Co de Phone Number [facility] [address] [place] [address] * PT-INR (03/03/2013 3:49 PM GRADES 1 THRU 5 TEACHER) PT 10.5 9.4 - 11.4 sec 03/03/2013 4:23 PM GRADES 1 THRU 5 TEACHER [facility] INR 1.00 0.89 - 1.08 03/03/2013 4:23 PM GRADES 1 THRU 5 TEACHER [facility] Blood BLOOD SPECIMEN / Unknown Venipuncture / Unknown 03/03/2013 3:49 PM GRADES 1 THRU 5 TEACHER 03/03/2013 3:55 PM GRADES 1 THRU 5 TEACHER Narrative [facility] - 03/03/2013 4:23 PM GRADES 1 THRU 5 TEACHER Conventional Anticoagulant Therapy INR Reference Ranges: 2.0-3.0 Intensive Anticoagulant Therapy INR Reference Ranges: 2.5-3.5 Radha Liz COMPUTER LAB ASSISTANT-NUCLEAR OPERATIONS SPECIALIST LAB - COAGULATIO N ORDERABLES Performing Organization Address City/[facility]/ZIP Co de Phone Number [facility] [address] [place] [address] * CARDIAC PROCEDURE ORDER (02/20/2013 9:49 AM GRADES 1 THRU 5 TEACHER) Narrative 02/20/2013 9:49 AM GRADES 1 THRU 5 TEACHER Ordered by an unspecified provider. Transcriptions Document, Scanned - 02/20/2013 9:49 AM CST Scanned Document CARDIAC SERVICES ORD ERABLES * CARDIAC CATH CONSULT (for Epic Reporting) (02/17/2013 7:04 AM GRADES 1 THRU 5 TEACHER) 02/17/2013 7:04 AM GRADES 1 THRU 5 TEACHER Narrative [facility] - 02/17/2013 9:23 AM GRADES 1 THRU [address] [id number] Cardiovascular Catheterization Comprehensive Report Patient: POLA TURNER MR number: [id number] Height: 68.9 in Weight: 284.5 lb BSA: 2.4 m Study date: 02/17/2013 : 1960 Age: 52 years Gender: Female Race: Black Allergies: CIPROFLOXACIN HYDROCHLORIDE, LEVOFLOXACIN Diagnostic Animal Care Worker: Marcos Banks MD SUMMARY: -- HEMODYNAMICS: -- Right Heart Catheterization: RA: 15 mmHg RV: 38/8 PA: 36/7, mean 26 mmHg PCWP: 20mmHg (end-expiration) Zulema cardiac output 4.3 L/min, Index 1.8 L/min/m2 Thermodilution CO 5.7 L/min, CI 2.4 L/min/m2 PVR: 154 Oxygenation (room air, mild sedation): RA 57%, PA 61%, FA 87% -- CORONARY CIRCULATION: -- a)LM - no stenosis b)LAD - large vessel which tapers in mid portion. No stenosis. Several small diagonal branches without stenosis. c)LCX - large vessel giving off 2 large OM branches. No stenosis. d)RCA - large vessel without stenosis. Small PDA and PLV without stenosis. -- CARDIAC STRUCTURES: -- Normal LV systolic function without wall motion abnormalities. No mitral regurgitation. Moderately elevated LV end diastolic pressure of 30-35mmHg. PROCEDURES PERFORMED: -- Right heart catheterization. -- Left heart catheterization with ventriculography. -- Left coronary angiography. -- Right coronary angiography. IMPRESSIONS: 1) No significant occlusive CAD 2) Diastolic dysfunction: moderately elevated left sided filling pressure 3) Mild pulmonary hypertension: secondary to elevated left sided pressure. Normal PVR. 4) HTN -trial of Lasix 40mg BID for 3 days, then 40mg qam/20mg qpm -add Lisinopril 5mg daily for better BP control -KCL increased to 20meq daily -f/u with Dr. Reese-Threats in next few weeks Thank you. Please do not hesitate to call if any questions, Marcos Banks MD [facility] [place] [facility] COMPLICATIONS: No complications occurred during the cardiac cath tech visit. HEMODYNAMICS: -- Right Heart Catheterization: RA: 15 mmHg RV: 38/8 PA: 36/7, mean 26 mmHg PCWP: 20mmHg (end-expiration) Zulema cardiac output 4.3 L/min, Index 1.8 L/min/m2 Thermodilution CO 5.7 L/min, CI 2.4 L/min/m2 PVR: 154 Oxygenation (room air, mild sedation): RA 57%, PA 61%, FA 87% VENTRICLES: -- Normal LV systolic function without wall motion abnormalities. No mitral regurgitation. Moderately elevated LV end diastolic pressure of 30-35mmHg. CORONARY CIRCULATION: -- a)LM - no stenosis b)LAD - large vessel which tapers in mid portion. No stenosis. Several small diagonal branches without stenosis. c)LCX - large vessel giving off 2 large OM branches. No stenosis. d)RCA - large vessel without stenosis. Small PDA and PLV without stenosis. PROCEDURE: The risks and alternatives of the procedures and conscious sedation were explained to the patient and informed consent was obtained. The patient was brought to the cardiac cath tech and placed on the table. The planned puncture sites were prepped and draped in the usual sterile fashion. Oxygen 2 L/min. -- Right femoral vein access. The puncture site was infiltrated with 1 % lidocaine. The vessel was accessed using the modified Seldinger technique, a wire was threaded into the vessel, and a 7Fr/11cm Gertrude+ was advanced over the wire into the vessel. -- Right femoral artery access. The puncture site was infiltrated with 1 % lidocaine. The vessel was accessed using the modified Seldinger technique, a wire was threaded into the vessel, and a sheath was advanced over the wire into the vessel. -- Right heart catheterization. A 7Fr Thermodilution Acosta-Barb catheter was advanced to the pulmonary artery wedge position under fluoroscopic guidance. Measurements of pressures and arterial and venous oxygen saturation were obtained. The catheter remained in place throughout the procedure for continuous monitoring of pulmonary artery pressure. -- Left heart catheterization. A 5Fr/100cm Expo PIG catheter was advanced to the ascending aorta. After recording ascending aortic pressure, the catheter was advanced across the aortic valve and left ventricular pressure was recorded. Ventriculography was performed using power injection of contrast agent. Imaging was performed using an CABRERA projection. -- Left coronary artery angiography. A 5Fr FL4 Expo catheter was advanced to the aorta and positioned in the vessel ostium under fluoroscopic guidance. Angiography was performed in multiple projections using hand-injection of contrast. -- Right coronary artery angiography. A 5Fr WR Expo catheter was advanced to the aorta and positioned in the vessel ostium under fluoroscopic guidance. Angiography was performed in multiple projections using hand-injection of contrast. PROCEDURE COMPLETION: TIMING: Test started at 08:00. Test concluded at 08:31. RADIATION EXPOSURE: Fluoroscopy time: 2.6 min. MEDICATIONS GIVEN: Midazolam, 1 mg, IV, at 07:53. Fentanyl, 25 mcg, IV, at 07:53. Midazolam, 1 mg, IV, at 07:59. Fentanyl, 25 mcg, IV, at 08:04. Midazolam, 1 mg, IV, at 08:18. Lidocaine, 14 ml, subcutaneously, at 08:01. 0.9 Saline, infusion rate of 75 ml/hr, IV, at 07:50. Prepared and signed by Marcos Banks MD Signed 02/17/2013 09:22:45 STUDY DIAGRAM HEMODYNAMIC TABLES Pressures: NO PHASE Pressures: - HR: 60 Pressures: - Rhythm: Pressures: -- Aortic Pressure (S/D/M): 137/74/85 Pressures: -- Left Ventricle (s/edp): 142/27/-- Pressures: -- Pulmonary Artery (S/D/M): 36/7/24 Pressures: -- Pulmonary Capillary Wedge: 20/18/14 Pressures: -- Right Atrium (a/v/M): 18/15/14 Pressures: -- Right Ventricle (s/edp): 38/18/-- O2 Sats: NO PHASE O2 Sats: - HR: 60 O2 Sats: - Rhythm: O2 Sats: -- FA: 12.7/87.6/15.13 O2 Sats: -- Pa: 12.7/62.4/10.78 O2 Sats: -- RA: 12.7/57.2/9.88 Outputs: NO PHASE Outputs: -- CALCULATIONS[age] Outputs: -- CALCULATIONS: Body Surface Area: 2.40 Outputs: -- CALCULATIONS: Height in cm: 175.00 Outputs: -- CALCULATIONS: Sex: Female Outputs: -- CALCULATIONS: Weight in k.30 Outputs: -- OUTPUTS: Blood Oxygen Difference: 5.25 Outputs: -- OUTPUTS: Cardiac index by thermal dilution: 2.39 Outputs: -- OUTPUTS: CO by Zulema: 4.30 Outputs: -- OUTPUTS: CO by thermal dilution: 5.73 Outputs: -- OUTPUTS: Zulema cardiac index: 1.79 Outputs: -- OUTPUTS: Zulema HR: 61.00 Outputs: -- OUTPUTS: O2 consumption: 225.53 Outputs: -- OUTPUTS: Vo2 Indexed: 94.02 Outputs: -- RESISTANCES: Left ventricular stroke work: 58.42 Outputs: -- RESISTANCES: Left Ventricular Stroke Work index: 24.35 Outputs: -- RESISTANCES: Pulmonary vascular index (dsc): 370.27 Outputs: -- RESISTANCES: Pulmonary vascular index (Wood Units): 4.63 Outputs: -- RESISTANCES: Pulmonary vascular resistance (dsc): 154.35 Outputs: -- RESISTANCES: Pulmonary vascular resistance (Wood Units): 1.93 Outputs: -- RESISTANCES: PVR_SVR Ratio: 0.12 Outputs: -- RESISTANCES: Right ventricular stroke work: 11.74 Outputs: -- RESISTANCES: Right ventricular stroke work index: 4.90 Outputs: -- RESISTANCES: Systemic vascular index (dsc): 3171.39 Outputs: -- RESISTANCES: Systemic vascular index (Wood Units): 39.65 Outputs: -- RESISTANCES: Systemic vascular resistance (dsc): 1322.06 Outputs: -- RESISTANCES: Systemic vascular resistance (Wood Units): 16.53 Outputs: -- RESISTANCES: Total pulmonary index (dsc): 888.65 Outputs: -- RESISTANCES: Total pulmonary index (Wood Units): 11.11 Outputs: -- RESISTANCES: Total pulmonary resistance (dsc): 370.45 Outputs: -- RESISTANCES: Total pulmonary resistance (Wood Units): 4.63 Outputs: -- RESISTANCES: Total vascular index (Wood Units): 47.47 Outputs: -- RESISTANCES: Total vascular resistance (dsc): 1582.75 Outputs: -- RESISTANCES: Total vascular resistance (Wood Units): 19.79 Outputs: -- RESISTANCES: Total vascular resistance index (dsc): 3796.73 Outputs: -- RESISTANCES: TPR_TVR Ratio: 0.23 Outputs: -- SHUNTS: Pulmonary flow: 5.18 Outputs: -- SHUNTS: Qp Indexed: 2.16 Outputs: -- SHUNTS: Qs Indexed: 1.79 Outputs: -- SHUNTS: Systemic flow: 4.30 Procedure Note 02/17/[address] [address] Cardiovascular Catheterization Comprehensive Report Patient: POLA TURNER MR number: [id number] Height: 68.9 in Weight: 284.5 lb BSA: 2.4 m Study date: 02/17/2013 : 1960 Age: 52 years Gender: Female Race: Black Allergies: CIPROFLOXACIN HYDROCHLORIDE, LEVOFLOXACIN Diagnostic Animal Care Worker: Marcos Banks MD SUMMARY: -- HEMODYNAMICS: -- Right Heart Catheterization: RA: 15 mmHg RV: 38/8 PA: 36/7, mean 26 mmHg PCWP: 20mmHg (end-expiration) Zulema cardiac output 4.3 L/min, Index 1.8 L/min/m2 Thermodilution CO 5.7 L/min, CI 2.4 L/min/m2 PVR: 154 Oxygenation (room air, mild sedation): RA 57%, PA 61%, FA 87% -- CORONARY CIRCULATION: -- a)LM - no stenosis b)LAD - large vessel which tapers in mid portion. No stenosis. Several small diagonal branches without stenosis. c)LCX - large vessel giving off 2 large OM branches. No stenosis. d)RCA - large vessel without stenosis. Small PDA and PLV without stenosis. -- CARDIAC STRUCTURES: -- Normal LV systolic function without wall motion abnormalities. No mitral regurgitation. Moderately elevated LV end diastolic pressure of 30-35mmHg. PROCEDURES PERFORMED: -- Right heart catheterization. -- Left heart catheterization with ventriculography. -- Left coronary angiography. -- Right coronary angiography. IMPRESSIONS: 1) No significant occlusive CAD 2) Diastolic dysfunction: moderately elevated left sided filling pressure 3) Mild pulmonary hypertension: secondary to elevated left sided pressure. Normal PVR. 4) HTN -trial of Lasix 40mg BID for 3 days, then 40mg qam/20mg qpm -add Lisinopril 5mg daily for better BP control -KCL increased to 20meq daily -f/u with Dr. Reese-Threats in next few weeks Thank you. Please do not hesitate to call if any questions, Marcos Banks MD [facility] [place] [facility] COMPLICATIONS: No complications occurred during the cardiac cath tech visit. HEMODYNAMICS: -- Right Heart Catheterization: RA: 15 mmHg RV: 38/8 PA: 36/7, mean 26 mmHg PCWP: 20mmHg (end-expiration) Zulema cardiac output 4.3 L/min, Index 1.8 L/min/m2 Thermodilution CO 5.7 L/min, CI 2.4 L/min/m2 PVR: 154 Oxygenation (room air, mild sedation): RA 57%, PA 61%, FA 87% VENTRICLES: -- Normal LV systolic function without wall motion abnormalities. No mitral regurgitation. Moderately elevated LV end diastolic pressure of 30-35mmHg. CORONARY CIRCULATION: -- a)LM - no stenosis b)LAD - large vessel which tapers in mid portion. No stenosis. Several small diagonal branches without stenosis. c)LCX - large vessel giving off 2 large OM branches. No stenosis. d)RCA - large vessel without stenosis. Small PDA and PLV without stenosis. PROCEDURE: The risks and alternatives of the procedures and conscious sedation were explained to the patient and informed consent was obtained. The patient was brought to the cardiac cath tech and placed on the table. The planned puncture sites were prepped and draped in the usual sterile fashion. Oxygen 2 L/min. -- Right femoral vein access. The puncture site was infiltrated with 1 % lidocaine. The vessel was accessed using the modified Seldinger technique, a wire was threaded into the vessel, and a 7Fr/11cm Gertrude+ was advanced over the wire into the vessel. -- Right femoral artery access. The puncture site was infiltrated with 1 % lidocaine. The vessel was accessed using the modified Seldinger technique, a wire was threaded into the vessel, and a sheath was advanced over the wire into the vessel. -- Right heart catheterization. A 7Fr Thermodilution Acosta-Barb catheter was advanced to the pulmonary artery wedge position under fluoroscopic guidance. Measurements of pressures and arterial and venous oxygen saturation were obtained. The catheter remained in place throughout the procedure for continuous monitoring of pulmonary artery pressure. -- Left heart catheterization. A 5Fr/100cm Expo PIG catheter was advanced to the ascending aorta. After recording ascending aortic pressure, the catheter was advanced across the aortic valve and left ventricular pressure was recorded. Ventriculography was performed using power injection of contrast agent. Imaging was performed using an CABRERA projection. -- Left coronary artery angiography. A 5Fr FL4 Expo catheter was advanced to the aorta and positioned in the vessel ostium under fluoroscopic guidance. Angiography was performed in multiple projections using hand-injection of contrast. -- Right coronary artery angiography. A 5Fr WR Expo catheter was advanced to the aorta and positioned in the vessel ostium under fluoroscopic guidance. Angiography was performed in multiple projections using hand-injection of contrast. PROCEDURE COMPLETION: TIMING: Test started at 08:00. Test concluded at 08:31. RADIATION EXPOSURE: Fluoroscopy time: 2.6 min. MEDICATIONS GIVEN: Midazolam, 1 mg, IV, at 07:53. Fentanyl, 25 mcg, IV, at 07:53. Midazolam, 1 mg, IV, at 07:59. Fentanyl, 25 mcg, IV, at 08:04. Midazolam, 1 mg, IV, at 08:18. Lidocaine, 14 ml, subcutaneously, at 08:01. 0.9 Saline, infusion rate of 75 ml/hr, IV, at 07:50. Prepared and signed by Marcos Banks MD Signed 02/17/2013 09:22:45 STUDY DIAGRAM HEMODYNAMIC TABLES Pressures: NO PHASE Pressures: - HR: 60 Pressures: - Rhythm: Pressures: -- Aortic Pressure (S/D/M): 137/74/85 Pressures: -- Left Ventricle (s/edp): 142/27/-- Pressures: -- Pulmonary Artery (S/D/M): 36/7/24 Pressures: -- Pulmonary Capillary Wedge: 20/18/14 Pressures: -- Right Atrium (a/v/M): 18/15/14 Pressures: -- Right Ventricle (s/edp): 38/18/-- O2 Sats: NO PHASE O2 Sats: - HR: 60 O2 Sats: - Rhythm: O2 Sats: -- FA: 12.7/87.6/15.13 O2 Sats: -- Pa: 12.7/62.4/10.78 O2 Sats: -- RA: 12.7/57.2/9.88 Outputs: NO PHASE Outputs: -- CALCULATIONS[age] Outputs: -- CALCULATIONS: Body Surface Area: 2.40 Outputs: -- CALCULATIONS: Height in cm: 175.00 Outputs: -- CALCULATIONS: Sex: Female Outputs: -- CALCULATIONS: Weight in k.30 Outputs: -- OUTPUTS: Blood Oxygen Difference: 5.25 Outputs: -- OUTPUTS: Cardiac index by thermal dilution: 2.39 Outputs: -- OUTPUTS: CO by Zulema: 4.30 Outputs: -- OUTPUTS: CO by thermal dilution: 5.73 Outputs: -- OUTPUTS: Zulema cardiac index: 1.79 Outputs: -- OUTPUTS: Zulema HR: 61.00 Outputs: -- OUTPUTS: O2 consumption: 225.53 Outputs: -- OUTPUTS: Vo2 Indexed: 94.02 Outputs: -- RESISTANCES: Left ventricular stroke work: 58.42 Outputs: -- RESISTANCES: Left Ventricular Stroke Work index: 24.35 Outputs: -- RESISTANCES: Pulmonary vascular index (dsc): 370.27 Outputs: -- RESISTANCES: Pulmonary vascular index (Wood Units): 4.63 Outputs: -- RESISTANCES: Pulmonary vascular resistance (dsc): 154.35 Outputs: -- RESISTANCES: Pulmonary vascular resistance (Wood Units): 1.93 Outputs: -- RESISTANCES: PVR_SVR Ratio: 0.12 Outputs: -- RESISTANCES: Right ventricular stroke work: 11.74 Outputs: -- RESISTANCES: Right ventricular stroke work index: 4.90 Outputs: -- RESISTANCES: Systemic vascular index (dsc): 3171.39 Outputs: -- RESISTANCES: Systemic vascular index (Wood Units): 39.65 Outputs: -- RESISTANCES: Systemic vascular resistance (dsc): 1322.06 Outputs: -- RESISTANCES: Systemic vascular resistance (Wood Units): 16.53 Outputs: -- RESISTANCES: Total pulmonary index (dsc): 888.65 Outputs: -- RESISTANCES: Total pulmonary index (Wood Units): 11.11 Outputs: -- RESISTANCES: Total pulmonary resistance (dsc): 370.45 Outputs: -- RESISTANCES: Total pulmonary resistance (Wood Units): 4.63 Outputs: -- RESISTANCES: Total vascular index (Wood Units): 47.47 Outputs: -- RESISTANCES: Total vascular resistance (dsc): 1582.75 Outputs: -- RESISTANCES: Total vascular resistance (Wood Units): 19.79 Outputs: -- RESISTANCES: Total vascular resistance index (dsc): 3796.73 Outputs: -- RESISTANCES: TPR_TVR Ratio: 0.23 Outputs: -- SHUNTS: Pulmonary flow: 5.18 Outputs: -- SHUNTS: Qp Indexed: 2.16 Outputs: -- SHUNTS: Qs Indexed: 1.79 Outputs: -- SHUNTS: Systemic flow: 4.30 Marcos Banks MD ECHO ORDERABLES [facility] [address] [place] [address] * NM MYOCARD PERFUSION SPECT STRESS AND REST (02/11/2013 12:21 PM GRADES 1 THRU 5 TEACHER) Only the most recent of2 resultswithin the time period is included. Anatomical Region Laterality Modality Chest Nuclear Digisoni cs 02/11/2013 11:1 6 AM GRADES 1 THRU 5 TEACHER Narrative Procedure Note Magalis Wright MD - 02/11/2013 [address], [address] [place] [address] [email or web address] Nuclear Scan Report Pat.Name: POLA TURNER Pat.ID: [id number] St.Date: 02/11/2013 Refer.MD: Shabana Davis MD Exam Time: 11:16:00 AM Study Type:[facility] Nuc Med Weight: 285lb Age: 7 1960,52Y Sex: FEMALE Sonogrphr: PAT Jennings Reason for Study:Chest pain, Shortness of breath Procedures:Lexiscan Perfusion Scan, Gated Stress Visit ID: [id number] Risk Factors:Hypertension, Family history, Prior History of Smoking Clinical Symptoms:Chest pain, Shortness of breath Medications:Aspirin, Inhaler, Lasix, Albuterol, Aleve, Calan, KCL, Levbid, Oscal, Prednisone, Qvar, Synthroid, Vicodin SUMMARY: FINDINGS: Myocardial perfusion imaging reveals a moderate sized area of moderately decreased activity in the anterior wall which is partially reversible between both imaging sets and is suggetive of ischemia in an area which is partly breast attenuation artifact. The remaining romero demonstrate normal perfusion. LV cavity size appears normal in both imaging sets. Gated myocardial imaging reveals normal LV systolic function with a calculated ejection fraction of 65%. SUMMARY: 1. Abnormal myocardial perfusion study with a moderate area of anterior ischemia . 2. Gated images reveal normal LV systolic function. STRESS: Baseline Vital Signs: Intervention: Regadenoson ECG: Normal sinus rhythm Peak Dose: 0.4 mg HR: 64 BP: 152/80 QRS [place]: 0.41 deg Stress Test Results: Max HR: 96 Max BP: 121/65 Max RPP: [id number] Symptoms and Complications: Arrhythmias: None Terminated: Protocol completed Symptoms: Shortness of breath, GI discomfort, Neck pain Conclusions: Ending heart rate was 83 and ending blood pressure was 119/64. Stress ECG Interp: No ischemic S-T changes during lexiscan infusion. Signed 02/11/2013 04:14 PM Kevin Wright MD, [facility] Transcriptions Document, Scanned - 02/11/2013 4:15 PM CST Marcos Banks MD NM ORDERABLES * (ABNORMAL) TSH+FREE T4 (PO REF LAB) (11/30/2012 12:54 PM CDT) Only the most recent of2 resultswithin the time period is included. TSH 0.214(L) 0.450 - 4.500 uIU/mL [facility] INSURANCE BILL T4 Free 1.38 0.82 - 1.77 ng/dL [facility] INSURANCE BILL BLOOD SPECIMEN / Unknown 11/30/2012 12:54 PM CDT 11/30/2012 7:02 PM CDT Narrative Resulting Agency Comment [address] [phone] José Ashton MD LAB - CHEMISTRY [place] Performing Organization Address [facility] de Phone Number [facility] INSURANCE BILL * HEPATITIS C ANTIBODY (11/30/2012 12:54 PM CDT) Hepatitis C Antibody <0.1 0.0 - 0.9 s/co ratio [facility] INSURANCE BILL Comment: Negative: < 0.8 Indeterminate 0.8 - 0.9 Positive: > 0.9 . In order to reduce the incidence of a false positive result, the CDC recommends that all s/co ratios between 1.0 and 10.9 be confirmed by a more specific supplemental or PCR testing. [facility] offers HCV Ab w/Reflex to Verification test #[id number]. Blood specimen (specimen) BLOOD SPECIMEN / Unknown 11/30/2012 12:54 PM CDT 11/30/2012 7:02 PM CDT Narrative Resulting Agency Comment [facility] [address] [facility] [phone] José Ashton MD LAB - CHEMISTRY [place] Performing Organization Address [facility] de Phone Number [facility] INSURANCE BILL * FL FLUORO SMALL BOWEL SERIES (08/03/2012 12:40 PM CDT) Anatomical Region Laterality Modality Abdomen Radio Fluoroscop y 08/03/2012 4:55 PM CDT Impressions 08/03/2012 4:55 PM CDT No abnormality seen Narrative 08/03/2012 4:55 PM CDT Small bowel series CLINICAL: Abdominal pain FINDINGS: Barium was given in the normal oral fashion. Images were obtained at 15 minutes, 30 minutes and 60 minutes. Mucosal pattern of the small bowel appears normal. There is no dilatation or persistent filling defects. Barium reached the colon by 60 minutes. Procedure Note Teresa Barragan MD - 08/03/2012 Small bowel series CLINICAL: Abdominal pain FINDINGS: Barium was given in the normal oral fashion. Images were obtained at 15 minutes, 30 minutes and 60 minutes. Mucosal pattern of the small bowel appears normal. There is no dilatation or persistent filling defects. Barium reached the colon by 60 minutes. IMPRESSION No abnormality seen Nikita Fraser MD FLUOROSCOPY ORDERABL ES * CARDIAC ECHOCARDIOGRAM COMPLETE ORDER (01/13/2012 1:31 PM GRADES 1 THRU 5 TEACHER) Narrative 01/13/2012 1:31 PM GRADES 1 THRU 5 TEACHER Procedure Note Document, Scanned - 01/13/2012 1:31 PM CST Scanned Document ECHO ORDERABLES * URIC ACID BLOOD (12/30/2011 2:27 PM GRADES 1 THRU 5 TEACHER) Uric Acid 6.9 2.5 - 7.1 mg/dL [facility] INSURANCE BILL Comment:Therapeutic target f or gout patients: <6.0 Blood specimen (specimen) BLOOD SPECIMEN / Unknown 12/30/2011 2:27 PM GRADES 1 THRU 5 TEACHER 12/30/2011 5:30 PM GRADES 1 THRU 5 TEACHER Narrative Resulting Agency Comment [address] [phone] José Ashton MD LAB - CHEMISTRY [place] [facility] INSURANCE BILL * CT ABDOMEN WITH IV CONTRAST (02/05/2011 10:43 AM GRADES 1 THRU 5 TEACHER) Anatomical Region Laterality Modality Abdomen Computed Tomogra phy 02/05/2011 11:0 4 AM GRADES 1 THRU 5 TEACHER Narrative 02/05/2011 11:11 AM [address] ABDOMEN CLINICAL INFORMATION: Upper abdominal bloating and nausea and vomiting. TECHNIQUE: Multiple contiguous axial images of the abdomen were obtained with oral and intravenous contrast. Comparison is made to 09/10/2009. There is diffuse fatty infiltration of the liver. The hepatic and portal veins enhance normally. The gallbladder is surgically absent. There is no bile duct dilatation. The spleen, pancreas, adrenal glands, kidneys, and visualized ureters are normal. The visualized large and small bowel are normal. There is no free intraperitoneal air or fluid. The vascular structures and arteries enhance normally. No adenopathy is present. Lung bases are clear. There is degenerative change at L5-S1. DIAGNOSIS: Fatty change of the liver. Otherwise grossly negative. Procedure Note José Miguel Garcia MD - 02/05/2011 CT ABDOMEN CLINICAL INFORMATION: Upper abdominal bloating and nausea and vomiting. TECHNIQUE: Multiple contiguous axial images of the abdomen were obtained with oral and intravenous contrast. Comparison is made to 09/10/2009. There is diffuse fatty infiltration of the liver. The hepatic and portal veins enhance normally. The gallbladder is surgically absent. There is no bile duct dilatation. The spleen, pancreas, adrenal glands, kidneys, and visualized ureters are normal. The visualized large and small bowel are normal. There is no free intraperitoneal air or fluid. The vascular structures and arteries enhance normally. No adenopathy is present. Lung bases are clear. There is degenerative change at L5-S1. DIAGNOSIS: Fatty change of the liver. Otherwise grossly negative. José Ashton MD CT ORDERABLES * AMYLASE BLOOD (01/29/2011 9:07 AM GRADES 1 THRU 5 TEACHER) Amylase 52 31 - 124 U/L [facility] INSURANCE BILL Blood specimen (specimen) BLOOD SPECIMEN / Unknown 01/29/2011 9:07 AM GRADES 1 THRU 5 TEACHER 01/29/2011 5:50 PM GRADES 1 THRU 5 TEACHER Narrative Resulting Agency Comment [facility] [address] [phone] José Ashton MD LAB - CHEMISTRY [place] [facility] INSURANCE BILL * STRESS TEST LEXISCAN (NUCLEAR) (11/29/2010) José Ashton MD CARDIAC SERVICES ORD ERABLES * IP CONSULT TO STAFF SUBMARINE WARFARE OFFICER (09/13/2010 8:29 AM CDT) Louis Rosario MD INPATIENT ANCILLARY CONSULT * CT SINUS FACIAL BONES NON CONTRAST (09/12/2010 8:14 PM CDT) Anatomical Region Laterality Modality Head Computed Tomogra phy 09/12/2010 8:56 PM CDT Impressions 09/12/2010 8:56 PM CDT 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 No fracture seen. Narrative 09/12/2010 8:[address] maxillofacial. HISTORY: Temporomandibular joint pain, difficulty opening mouth. Images were obtained through the facial bones including the mandible and temporomandibular joints. Axial coronal and sagittal planes are reviewed. The study shows severe degenerative change at both temporomandibular joints manifest by flattening of the condylar head with anterior spurring and sclerosis. The fossa is wide and shallow bilaterally. I do not see a gross fracture or dislocation. The right condylar head is located anteriorly within the fossa and the left is located more posteriorly giving the mandible a oblique orientation with respect to the maxilla. Incidentally noted are postop changes and a neural stimulation device in the upper cervical spine. Procedure Note Ciro Salcedo MD - 09/12/2010 CT maxillofacial. HISTORY: Temporomandibular joint pain, difficulty opening mouth. Images were obtained through the facial bones including the mandible and temporomandibular joints. Axial coronal and sagittal planes are reviewed. The study shows severe degenerative change at both temporomandibular joints manifest by flattening of the condylar head with anterior spurring and sclerosis. The fossa is wide and shallow bilaterally. I do not see a gross fracture or dislocation. The right condylar head is located anteriorly within the fossa and the left is located more posteriorly giving the mandible a oblique orientation with respect to the maxilla. Incidentally noted are postop changes and a neural stimulation device in the upper cervical spine. 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 No fracture seen. Antonieta Power MD CT ORDERABLES * IP CONSULT TO CASE MANAGEMENT (09/12/2010 3:36 PM CDT) Louis Rosario MD INPATIENT ANCILLARY CONSULT * CONSULT TO REHAB (09/12/2010 12:54 PM CDT) Louis Rosario MD INPATIENT ANCILLARY CONSULT * MRI BRAIN NON CONTRAST (09/12/2010 11:40 AM CDT) Anatomical Region Laterality Modality Head Magnetic Resonan ce 09/12/2010 12:0 4 PM CDT Impressions 09/12/2010 12:04 PM CDT No acute intracranial process Narrative 09/12/2010 12:04 PM CDT MRI brain without contrast Date: 09/12/2010 History: Facial droop Technique: Multiplanar, multisequence The study was performed within 24 hours of arrival to the hospital. Findings: The brain signal intensity with its michaud-white matter interface is normal. The midline structures are central. The ventricles are neither dilated nor displaced. No diffusion restriction is present to suggest acute or subacute ischemia. Appropriate intracranial flow-voids are seen. The orbits, periorbital and paracavernous spaces are normal. No abnormality of the skull base or calvarium is identified. Procedure Note Kennedy Horton MD - 09/12/2010 MRI brain without contrast Date: 09/12/2010 History: Facial droop Technique: Multiplanar, multisequence The study was performed within 24 hours of arrival to the hospital. Findings: The brain signal intensity with its michaud-white matter interface is normal. The midline structures are central. The ventricles are neither dilated nor displaced. No diffusion restriction is present to suggest acute or subacute ischemia. Appropriate intracranial flow-voids are seen. The orbits, periorbital and paracavernous spaces are normal. No abnormality of the skull base or calvarium is identified. IMPRESSION No acute intracranial process Sanjiv Gill MD MR ORDERABLES * CONSULT TO NEUROLOGY (09/12/2010 10:59 AM CDT) Louis Rosario MD INPATIENT CONSULT O RDERABLES * MRA ANGIO NECK WO CONTRAST (09/12/2010 9:06 AM CDT) Anatomical Region Laterality Modality Head Magnetic Resonan ce 09/12/2010 9:27 AM CDT Impressions 09/12/2010 9:39 AM CDT Widely patent carotid arteries. Narrative 09/12/2010 9:39 AM CDT MRA NECK, NONCONTRAST DATE: 09/12/2010. INDICATION: Left facial droop, TIA? TECHNIQUE: 2-D umsm-xx-[id number] nonenhanced neck MRA with 3-D reformations. Less than 24 hours after onset of symptoms. FINDINGS: Both common carotid arteries and proximal internal carotid arteries are symmetric and widely patent. The brachiocephalic artery is patent. The vessel origins from the aortic arch are not included and are usually obscured due to pulsation artifact on the nonenhanced series. Throughout most of the neck, the vertebral arteries are symmetric and patent. In the posterior fossa as seen on the accompanying brain MRA, the distal left vertebral is dominant. Procedure Note Devin Hayes MD - 09/12/2010 MRA NECK, NONCONTRAST DATE: 09/12/2010. INDICATION: Left facial droop, TIA? TECHNIQUE: 2-D zenh-sl-bjomre nonenhanced neck MRA with 3-D reformations. Less than 24 hours after onset of symptoms. FINDINGS: Both common carotid arteries and proximal internal carotid arteries are symmetric and widely patent. The brachiocephalic artery is patent. The vessel origins from the aortic arch are not included and are usually obscured due to pulsation artifact on the nonenhanced series. Throughout most of the neck, the vertebral arteries are symmetric and patent. In the posterior fossa as seen on the accompanying brain MRA, the distal left vertebral is dominant. IMPRESSION Widely patent carotid arteries. Louis Rosario MD MR ORDERABLES * MRA ANGIO HEAD NON CONTRAST (09/12/2010 9:06 AM CDT) Anatomical Region Laterality Modality Head Magnetic Resonan ce 09/12/2010 9:22 AM CDT Impressions 09/12/2010 9:28 AM CDT 1. No significant intracranial large arterial findings. 2. Incomplete [place], incidental finding. Narrative 09/12/2010 9:28 AM CDT MRA BRAIN, NONCONTRAST DATE: 09/12/2010. INDICATION: Left facial droop. TECHNIQUE: 3-D ueda-iz-uvhvhx nonenhanced brain MRA with 3-D reformations. FINDINGS: The distal internal carotids are symmetric and widely patent. The basilar artery is normal. The left vertebral is dominant over the right. The anterior, middle and posterior cerebral arteries are unremarkable. There is no vascular cut off or evidence of aneurysm. The right posterior communicating artery is patent but the left posterior communicating artery is not seen. This is a common anatomic variant. Procedure Note Devin Hayes MD - 09/12/2010 MRA BRAIN, NONCONTRAST DATE: 09/12/2010. INDICATION: Left facial droop. TECHNIQUE: 3-D jhec-or-zqvvwt nonenhanced brain MRA with 3-D reformations. FINDINGS: The distal internal carotids are symmetric and widely patent. The basilar artery is normal. The left vertebral is dominant over the right. The anterior, middle and posterior cerebral arteries are unremarkable. There is no vascular cut off or evidence of aneurysm. The right posterior communicating artery is patent but the left posterior communicating artery is not seen. This is a common anatomic variant. IMPRESSION 1. No significant intracranial large arterial findings. 2. Incomplete [place], incidental finding. Louis Rosario MD MR ORDERABLES * VAS CAROTID DUPLEX BILATERAL (09/12/2010 8:38 AM CDT) Anatomical Region Laterality Modality Ultrasound 09/12/2010 Narrative Procedure Note Louis Delatorre MD - 09/13/2010 4:18 PM CDT [place] [id number] [facility] Laboratory PATIENT NAME: POLA TURNER [facility]#: [id number] AGE: 49ACCT#: [id number] ADMIT: 09/11/2010DOB: 1960 DATE: 09/12/2010ROOM#: [id number] REFERRING PHYSICIAN: EXAMINATION: Carotid artery duplex exam. REASON FOR EXAMINATION: CVA with facial droop. FINDINGS: On the right side no plaquing is identified. The right common carotidartery has a peak flow rate of 110. The right internal carotid artery hasa peak flow rate of 55, an end-diastolic flow of 16 and a normal spectralpattern. The external carotid artery has a peak flow rate of 85 and thereis antegrade flow in the right vertebral. On the left side no plaquing isidentified. The common carotid artery has a peak flow rate of 117. Theinternal carotid artery has a peak flow rate of 16, end-diastolic flow of29 and a normal spectral pattern. The external carotid artery has a peakflow rate of 69, and there is antegrade flow in the right vertebralartery. OVERALL ASSESSMENT: There is no narrowing of the right or left internal, external or commoncarotid arteries. There is antegrade flow in both vertebral arteries. cc:José Ashton M.D. NAME: POLA TURNER DICTATOR:LOUIS DELATORRE M.D. DICTATED FOR: [facility]/[id number] JOB ID: [id number] Vascular Laboratory José Ashton MD VASCULAR LAB ORDERAB LES * B-TYPE NATRIURETIC PEPTIDE - POINT OF CARE (09/11/2010 1:18 PM CDT) [facility] BNP POCT 5.0 <=100 pg/ml [facility] Performed by [facility] Performed In ER [facility] BLOOD SPECIMEN / Unknown 09/11/2010 1:18 PM CDT 09/11/2010 1:24 PM CDT Er LAB - POINT OF CARE ORDERABLES Performing Organization Address [facility] Co de Phone Number [facility] [address] [place] [phone] * MYOGLOBIN BLOOD - POINT OF CARE (09/11/2010 1:18 PM CDT) [facility] Myoglobin POCT 116 <=170 ng/ml [facility] Performed by [facility] Performed In ER [facility] BLOOD SPECIMEN / Unknown 09/11/2010 1:18 PM CDT 09/11/2010 1:24 PM CDT Er LAB - POINT OF CARE ORDERABLES Performing Organization Address [facility] Co de Phone Number [facility] [address] [place] [address] * TROPONIN - POINT OF CARE (09/11/2010 1:18 PM CDT) [facility] Troponin I POCT < 0.05 SEE BELOW ng/ml [facility] Comment: <0.05 Normal 0.05-0.39 Indeterminate >0.4 Abnormal Performed by ZW [facility] Performed In ER [facility] BLOOD SPECIMEN / Unknown 09/11/2010 1:18 PM CDT 09/11/2010 1:24 PM CDT Er LAB - POINT OF CARE ORDERABLES Performing Organization Address [facility] Co de Phone Number [facility] [address] [place] [phone] * CKMB - POINT OF CARE (09/11/2010 1:18 PM CDT) CK-MB POCT 1.6 <=8.0 ng/ml [facility] Performed by [facility] Performed In ER [facility] BLOOD SPECIMEN / Unknown 09/11/2010 1:18 PM CDT 09/11/2010 1:24 PM CDT Er LAB - POINT OF CARE ORDERABLES Performing Organization Address [facility] Co de Phone Number [facility] [address] [place] [phone] * HELICOBACTER PYLORI UREASE (07/31/2010 1:00 PM CDT) Helicobacter pylori Urease Initial Negative Negative [facility] Helicobacter pylori Urease Final Negative Negative [facility] GASTRIC ANTRAL BIOPSY SPECIMEN / Unknown 07/31/2010 1:00 PM CDT 07/31/2010 2:11 PM CDT Nikita Fraser MD LAB - MICROBIOLOGY O RDERABLES Performing Organization Address [facility] Co de Phone Number [facility] [address] [place] [phone] * CT ANGIO ABDOMEN PELVIS (07/19/2010 12:26 PM CDT) Anatomical Region Laterality Modality Abdomen, Pelvis Computed Tomogra phy 07/21/2010 4:48 PM CDT Impressions 07/21/2010 5:03 PM CDT Widely patent abdominal and pelvic arterial vasculature. Narrative 07/21/2010 5:[address] ANGIOGRAM ABDOMEN AND PELVIS WITH CONTRAST DATE: 07/19/2010. INDICATION: Epigastric abdominal pain. Assess for bowel ischemia. TECHNIQUE: Multidetector enhanced CT angiography through the abdomen and pelvis utilizing 100 cc of Omnipaque 350 intravenously. Multiplanar and 3-D reformations performed on an independent workstation and saved to PACS. FINDINGS: Comparison is made with the routine enhanced scan from August 2009. The abdominal aorta, iliac and common femoral arteries are widely patent and free of plaque or stenosis. The common femoral bifurcations are also normal. The superior mesenteric, inferior mesenteric and celiac arteries are widely patent and normal. Branch vessels in the mesentery are unremarkable. Splenic and hepatic branches are also normal. There are single bilateral patent renal arteries. As seen in arterial phase, the liver, spleen, pancreas, adrenals and kidneys are unremarkable. There are incidental granulomas throughout the spleen. The gallbladder is surgically absent. Slight bulging of omentum into the umbilicus should be an incidental finding. The lung bases are clear except for dependent atelectasis. Procedure Note Devin Hayes MD - 07/21/2010 CT ANGIOGRAM ABDOMEN AND PELVIS WITH CONTRAST DATE: 07/19/2010. INDICATION: Epigastric abdominal pain. Assess for bowel ischemia. TECHNIQUE: Multidetector enhanced CT angiography through the abdomen and pelvis utilizing 100 cc of Omnipaque 350 intravenously. Multiplanar and 3-D reformations performed on an independent workstation and saved to PACS. FINDINGS: Comparison is made with the routine enhanced scan from August 2009. The abdominal aorta, iliac and common femoral arteries are widely patent and free of plaque or stenosis. The common femoral bifurcations are also normal. The superior mesenteric, inferior mesenteric and celiac arteries are widely patent and normal. Branch vessels in the mesentery are unremarkable. Splenic and hepatic branches are also normal. There are single bilateral patent renal arteries. As seen in arterial phase, the liver, spleen, pancreas, adrenals and kidneys are unremarkable. There are incidental granulomas throughout the spleen. The gallbladder is surgically absent. Slight bulging of omentum into the umbilicus should be an incidental finding. The lung bases are clear except for dependent atelectasis. IMPRESSION Widely patent abdominal and pelvic arterial vasculature. Nikita Fraser MD CT ORDERABLES * ENDOSCOPY, COLON, SCREENING (06/24/2010) Nikita Fraser MD GI PROCEDURE ORDERAB LES * CT CERVICAL SPINE NON CONTRAST (02/23/2010 11:29 AM GRADES 1 THRU 5 TEACHER) Anatomical Region Laterality Modality Spine Computed Tomogra phy 02/23/2010 12:0 9 PM GRADES 1 THRU 5 TEACHER Impressions 02/23/2010 1:29 PM GRADES 1 THRU 5 TEACHER Postsurgical changes posterior fusion at C1 and C2 levels as described with a portion of the two metallic wires in the spinal canal at the C2 level. Suspicious for a herniated disc at C3-C4 level centrally and off to the left and further evaluation is recommended. Narrative 02/23/2010 1:29 [address] cervical spine: HISTORY: Neck pain and right shoulder pain. History of fusion in July 2006. Axial, coronal and sagittal images are obtained. The examination reveals post surgical changes posterior fusion at the C1 and C2 level. Bilateral pedicular screws are seen at C1 and C2 levels and appear to be good in position. In addition, there are metallic fixation wires present at the operative site and portion of the two wires are in the spinal canal at C2 level. I do not definitely see the dural sac or the spinal cord at this level due to the presence of artifact produced by the metallic fixation. At the C4-C5 level, there is bulging of the posterior disc margin centrally and slightly off to the left and I believe this represents a herniated disc. Further evaluation is recommended. No sign of spinal stenosis. Procedure Note Javan Ibanez MD - 02/23/2010 CT cervical spine: HISTORY: Neck pain and right shoulder pain. History of fusion in July 2006. Axial, coronal and sagittal images are obtained. The examination reveals post surgical changes posterior fusion at the C1 and C2 level. Bilateral pedicular screws are seen at C1 and C2 levels and appear to be good in position. In addition, there are metallic fixation wires present at the operative site and portion of the two wires are in the spinal canal at C2 level. I do not definitely see the dural sac or the spinal cord at this level due to the presence of artifact produced by the metallic fixation. At the C4-C5 level, there is bulging of the posterior disc margin centrally and slightly off to the left and I believe this represents a herniated disc. Further evaluation is recommended. No sign of spinal stenosis. IMPRESSION Postsurgical changes posterior fusion at C1 and C2 levels as described with a portion of the two metallic wires in the spinal canal at the C2 level. Suspicious for a herniated disc at C3-C4 level centrally and off to the left and further evaluation is recommended. David Gonzalez MD CT ORDERABLES * (ABNORMAL) THYROID PANEL W TSH (10/15/2009 10:02 AM CDT) Only the most recent of2 resultswithin the time period is included. TSH 0.156(L) 0.450 - 4.500 uIU/mL [facility] INSURANCE BILL T4 Total 8.2 4.5 - 12.0 ug/dL [facility] INSURANCE BILL T3 Uptake 33 24 - 39 % [facility] INSURANCE BILL Free Thyroxine Index 2.7 1.2 - 4.9 [facility] INSURANCE BILL 10/15/2009 10:0 2 AM CDT 10/15/2009 6:29 PM CDT Narrative Resulting Agency Comment [facility] [address] [phone] David Gonzalez MD LAB - CHEMISTRY RORY [place] [facility] Organization Address City/State/ZIP Co de Phone Number [facility] INSURANCE BILL * CT ABD W/WO CON PELVIS W CONTRAST (09/10/2009 10:22 AM CDT) Anatomical Region Laterality Modality Abdomen, Pelvis Computed Tomogra phy 09/10/2009 11:3 4 AM CDT Impressions 09/10/2009 12:23 PM CDT Splenic calcification, stable. Absent gallbladder. 1.7 cm diameter ventral hernia at the midline containing intra-abdominal fat. Narrative 09/10/2009 12:[address] abdomen and CT pelvis: HISTORY: Diffuse abdominal pain. Pre- and postintravenous contrast CAT scan of the abdomen and postcontrast scan of the pelvis are performed following oral contrast administration. 100 cc of Omnipaque 350 was introduced. Axial and coronal images are obtained. There is no free fluid or free air in the abdominal cavity. Multiple calcified granulomas are seen in the spleen which is normal in size and contour and stable. The liver is normal in size and contour. No liver lesion or bile duct dilatation. The gallbladder is absent. The pancreas and both kidneys are within normal limits. No sign of bowel obstruction or bowel dilatation. In the pelvic cavity, a 1.7 cm diameter ventral hernia containing a intra-abdominal fat is visualized at the midline. The appendix is normal. There is no pelvic mass, pelvic fluid or inflammation. Procedure Note Javan Ibanez MD - 09/10/[address] pelvis: HISTORY: Diffuse abdominal pain. Pre- and postintravenous contrast CAT scan of the abdomen and postcontrast scan of the pelvis are performed following oral contrast administration. 100 cc of Omnipaque 350 was introduced. Axial and coronal images are obtained. There is no free fluid or free air in the abdominal cavity. Multiple calcified granulomas are seen in the spleen which is normal in size and contour and stable. The liver is normal in size and contour. No liver lesion or bile duct dilatation. The gallbladder is absent. The pancreas and both kidneys are within normal limits. No sign of bowel obstruction or bowel dilatation. In the pelvic cavity, a 1.7 cm diameter ventral hernia containing a intra-abdominal fat is visualized at the midline. The appendix is normal. There is no pelvic mass, pelvic fluid or inflammation. IMPRESSION Splenic calcification, stable. Absent gallbladder. 1.7 cm diameter ventral hernia at the midline containing intra-abdominal fat. Nikita Fraser MD CT ORDERABLES * CT CHEST WITH CONTRAST (08/09/2009) Anatomical Region Laterality Modality Chest Other David Gonzalez MD CT ORDERABLES * FL MODIFIED BARIUM SWALLOW W/SPEECH (07/18/2009 11:50 AM CDT) Anatomical Region Laterality Modality Chest Radio Fluoroscop y 07/19/2009 7:58 AM CDT Narrative 07/19/2009 8:00 AM CDT Modified barium swallow with speech therapy HISTORY: Dysphagia Fluoroscopic and radiographic examination of the hypopharynx and uppermost esophagus is performed with the patient in the sitting upright and frontal projections under the direction of a speech therapist.. This no evidence of aspiration or penetration of contrast. With patient in the frontal position, vocal cord mobility appears normal. Postoperative changes are seen with intra metallic fixation devices involving C1 and C2. SUMMARY: No aspiration or penetration demonstrated. Procedure Note Andrzej Acosta MD - 07/19/2009 Modified barium swallow with speech therapy HISTORY: Dysphagia Fluoroscopic and radiographic examination of the hypopharynx and uppermost esophagus is performed with the patient in the sitting upright and frontal projections under the direction of a speech therapist.. This no evidence of aspiration or penetration of contrast. With patient in the frontal position, vocal cord mobility appears normal. Postoperative changes are seen with intra metallic fixation devices involving C1 and C2. SUMMARY: No aspiration or penetration demonstrated. Marcos Cardenas MD FLUOROSCOPY ORDERABL ES * PROLACTIN (04/08/2008 9:33 AM GRADES 1 THRU 5 TEACHER) Pathologist [facility] Prolactin 11.8 ng/mL HANANE Comment: REFERENCE RANGE ADULT FEMALES: NON- 3.0-30.0 10.0-209.0 POSTMENOPAUSAL 2.0-20.0 Test Performed at: [place] [address] DEMARIO MIRANDA MD 04/08/2008 9:33 AM GRADES 1 THRU 5 TEACHER 04/09/2008 6:20 AM GRADES 1 THRU 5 TEACHER David Gonzalez MD LAB - CHEMISTRY RORY DALTON Performing Organization Address [facility] de Phone Number [facility] [address] [place] [phone] * LH (04/08/2008 9:33 AM GRADES 1 THRU 5 TEACHER) Pathologist [facility] LH 20.6 mIU/mL HANANE Comment: REFERENCE RANGE FOLLICULAR PHASE 1.9- 12.5 MID-CYCLE PEAK 8.7- 76.3 LUTEAL PHASE 0.5- 16.9 POSTMENOPAUSAL 5.0- 52.3 Test Performed at: [facility] [address] DEMARIO MIRANDA MD 04/08/2008 9:33 AM GRADES 1 THRU 5 TEACHER 04/09/2008 6:20 AM GRADES 1 THRU 5 TEACHER David Gonzalez MD LAB - CHEMISTRY RORY [place] Performing Organization Address [facility] Co de Phone Number [facility] [address] [place] [address] * FSH (04/08/2008 9:33 AM GRADES 1 THRU 5 TEACHER) FSH 14.2 mIU/mL HANANE Comment: REFERENCE RANGE FOLLICULAR PHASE 2.5-10.2 MID-CYCLE PEAK 3.1-17.7 LUTEAL PHASE 1.5- 9.1 POSTMENOPAUSAL 23.0-116.3 Test Performed at: [facility] [address] [place] [address] DEMARIO MIRANDA MD 04/08/2008 9:33 AM GRADES 1 THRU 5 TEACHER 04/09/2008 6:20 AM GRADES 1 THRU 5 TEACHER David Gonzalez MD LAB - CHEMISTRY RORY [place] Performing Organization Address [facility] Co de Phone Number [facility] [address] [place] [address] * TISSUE TRANSGLUTAMINASE AB IGA (01/25/2008 9:17 AM GRADES 1 THRU 5 TEACHER) Only the most recent of2 resultswithin the time period is included. Pathologist [facility] TTG Antibody IgA <1 0 - 3 U/mL [facility] INSURANCE BILL Comment: Negative 0 - 3 Weak Positive 4 - 10 Positive >10 . Tissue Transglutaminase (tTG) has been identified as the endomysial antigen. Studies have demonstr- ated that endomysial IgA antibodies have over 99% specificity for gluten sensitive enteropathy. 01/25/2008 9:17 AM GRADES 1 THRU 5 TEACHER 01/25/2008 5:16 PM GRADES 1 THRU 5 TEACHER Narrative Resulting Agency Comment [facility] [phone] Nikita Fraser MD LAB - SEROLOGY ORDER RADHA [facility] INSURANCE BILL * CLOSTRIDIUM DIFF TOXIN B (01/12/2008 8:30 AM GRADES 1 THRU 5 TEACHER) C difficile Toxin B [facility] INSURANCE BILL Comment: Negative No cytotoxin detected. Reference Range: Negative 01/12/2008 8:30 AM GRADES 1 THRU 5 TEACHER 01/12/2008 9:36 PM GRADES 1 THRU 5 TEACHER Narrative Resulting Agency Comment [facility] [address] [facility] [phone] Nikita Fraser MD LAB - MICROBIOLOGY O RDERABLES Performing Organization Address [facility] de Phone Number [facility] INSURANCE BILL * FECAL LEUKOCYTES (01/12/2008 8:30 AM GRADES 1 THRU 5 TEACHER) White Blood Cells (WBC), Stool Final report [facility] INSURANCE BILL Comment:Reference Range: Non e Seen Result 1 [facility] INSURANCE BILL Comment:No white blood cells seen. 01/12/2008 8:30 AM GRADES 1 THRU 5 TEACHER 01/12/2008 9:36 PM GRADES 1 THRU 5 TEACHER Narrative Resulting Agency Comment [place] [phone] [facility] [phone] Nikita Fraser MD LAB - BODY FLUID ORD ERABLES Performing Organization Address [facility] Phone Number [facility] INSURANCE BILL * O+P CONVENTIONAL (01/12/2008 8:30 AM GRADES 1 THRU 5 TEACHER) O+P Exam Final report [facility] INSURANCE BILL Comment: These results were obtained using wet preparation(s) and trichrome stained smear. This test does not include testing for Cryptosporidium parvum, Cyclospora, or Microsporidia. Result 1 [facility] INSURANCE BILL Comment:No ova, cysts, or pa rasites seen. 01/12/2008 8:30 AM GRADES 1 THRU 5 TEACHER 01/12/2008 9:36 PM GRADES 1 THRU 5 TEACHER Narrative Resulting Agency Comment [facility] [address] [facility] [phone] Nikita Fraser MD LAB - MICROBIOLOGY O RDERABLES Performing Organization Address [facility] Co de Phone Number [facility] INSURANCE BILL * GROSS + MICRO EXAM (12/22/2007 12:00 AM GRADES 1 THRU 5 TEACHER) Only the most recent of2 resultswithin the time period is included. Result CASE NUMBER [id number] Comment: ORDERING PHYSICIAN NIKITA FRASER SPECIMEN TYPE Colon Biopsy-random Date 12/22/2007 Physician Piotr Fraser Description The specimen is received in Formalin labeled with the patient's name, Pola Turner, and random colon. It consists of two fragments of soft pink acharya tissue measuring 0.3 x 0.3 x 0.2 cm in aggregate. The specimen is submitted in a single cassette. HW dutta Microscopic Exam The random colon biopsy reveals multiple fragments of unremarkable colonic mucosa. There is no evidence of cryptitis, crypt abscesses, or granuloma. MM/na Diagnosis I. Colon, random, biopsy -- History of diarrhea -- No pathologic diagnosis MM/na Pitting Machine Operator na Pathologist Kevin Lopez M.D. Snomed. 12/23/2007 1019 <1> CPT code 83437 MISCELLANEOUS SAMPLE S / Unknown 12/22/2007 12/22/2007 3:39 PM GRADES 1 THRU 5 TEACHER Historical Provider MD LAB - PATHOLOGY/C YTOLOGY ORDERABLES Care Teams Flagstone Layer Relationship Specialty Start Date End Date Mercedes Collins MD [address] [place] [phone] PCP - General Internal Medicine 05/17/19 Mercedes Collins MD [address] [place] [phone] PCP - [facility] 02/16/23 Chucky Menendez MD [address] [place] [address] Core Cleaner Pulmonary Disease 09/20/15 Wade Zelaya Jr., MD [address] [place] [address] Rheumatology 12/01/16 Danielle Reina MD [address] [place] [phone] Orthopedic Surgery 12/01/16 Ramsey Barbosa MD [address] [address] Internal Medicine 10/29/22
--- OUTSIDE RECORDS SUMMARY | 2024-04-24 19:38 | XMS_ITS | Encounter Summary ---
Author Organization [facility] Address [address] [place] [address] Care Team Providers Care Boot And Shoe Laborer Name Role Phone Chucky Menendez MD Unavailable Nathalie Guzman MD, Wade Lopes Unavailable [phone] Danielle Reina MD Unavailable [phone] Mercedes Collins MD Primary Care Provider Ramsey Barbosa MD Unavailable Mercedes Collins MD Unavailable [phone] Reason for Visit * Reason Onset Date Comments Update 04/14/2024 Encounter Details Date Type Department Care Team (Late st Contact Info) Description 04/14/2024 Telephone [facility] - Internal Medicine [address] [facility] [address] [place] [phone] Mercedes Collins MD [address] [place] [phone] Update Social History Tobacco Use Types Packs/Day Years [...] encounter Miscellaneous Notes * Telephone Encounter - Donna Suarez - 04/14/2024 3:37 PM CST Who is calling? Stacey If other than self is caller listed on the HIPAA? yes What is the reason for call? Stacey called to let the doctor know, that during patients infusion ontoday, patient started having stomach issues, and feeling like she wanted to faint. Patient was taken to [place] ER to be examined. Expected Response from the Clinic? ( ex. Call back, etc..) [phone] Did you notify caller it would take 24-48 hours for the office to get back to them? YES RDION MAKER documented in this encounter Plan of Treatment Upcoming Encounters Date Type Department Care Team (Late st Contact Info) Description 06/07/2024 1:20 PM CDT Office Visit [facility] - Internal Medicine [facility] [facility] [address] [place] [phone] Mercedes Collins MD [address] [place] [phone] 12/01/2024 11:45 AM CDT Office Visit [facility] - JINRIKISHA DRIVER [address] [facility] [address] [place] [phone] Peterson Nance MD [address] [facility] [address] [place] [address] documented as of this encounter Visit Diagnoses Not on filedocumented in this encounter Care Teams Boot And Shoe Laborer Relationship Specialty Start Date End Date Mercedes Collins MD [facility]5 [facility] [address] [place] [phone] PCP - General Internal Medicine 05/17/19 Mercedes Collins MD [address] [place] [address] [address] [place] [phone] PCP - [facility] 02/16/23 Chucky Menendez MD [address] [place] [address] [address] [place] [address] Watch Crystal Edge Grinder Pulmonary Disease 09/20/15 Wade Zelaya Jr., MD [address] [place] [address] [address] [place] [address] Rheumatology 12/01/16 [place] [address] [place] [phone] Orthopedic Surgery 12/01/16 Ramsey Barbosa MD [address] [address] Internal Medicine 10/29/22 documented as of this encounter
--- OUTSIDE RECORDS SUMMARY | 2024-04-24 19:38 | XMS_ITS | Encounter Summary ---
Author Organization [facility] Healthcare Address [address] [place] [address] Care Team Providers Care Big Data Software Engineer Name Role Phone Mercedes Collins MD Primary Care Provider + Andrzej Grimes OD Unavailable [phone] Ramsey Barbosa MD Unavailable [phone] Juana Leal RN Unavailable [phone] Encounter Details Date Type Department Care Team (Late st Contact Info) Description 04/12/2024 Telephone [facility] [address] [facility] [address] [place] [address] Gorge Cook, ABHILASH Social History Tobacco Use Types Packs/Day Years [...] on file Legal Sex Female 7:32 PM 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 No answer. TERRAIN VEHICLE RACER documented in this encounter Plan of Treatment Not on file documented as of this encounter Visit Diagnoses Not on filedocumented in this encounter Care Teams Big Data Software Engineer Relationship Specialty Start Date End Date Mercedes Collins MD [address] [facility] [address] [place] [address] PCP - General 06/25/17 Andrzej Grimes, OD [address] [place] [address] Referring Physician Ophthalmology 04/18/20 Ramsey Barbosa MD [address] [place] [address] Records Management Clerk Transplant 05/30/21 Juana Leal RN [address] [facility] [address] [place] [address] Heart Failure Coordinator Md Ophthalmologist 05/30/21 documented as of this encounter
--- OUTSIDE RECORDS SUMMARY | 2024-04-24 19:39 | XMS_ITS | Referral Summary ---
Author Organization [facility] Address [address] [place] [address] Care Team Providers Care [employer] Tender Name Role Phone Mercedes Collins MD Primary Care Provider + Andrzej Grimes OD Unavailable [phone] Ramsey Barbosa MD Unavailable Juana Leal RN Unavailable [phone] Encounters Date Type Department Care Team Description 04/20/2024 Orders Only [facility]fusion [facility] [address] [place] [address] [address] [place] [address] Caryn Ruiz RN 04/19/2024 10:45 AM DATABASE DESIGN ANALYST Office Visit [facility] Ophthalmology [address] [facility] 6th Floor, [address] [facility] [place] [place] [address] Jennifer Mar, OD Bilateral chronic anterior uveitis (Primary Dx); Age-related cataract of both eyes; Diabetes mellitus type 2 without retinopathy (HCC) 04/18/2024 10:38 AM DATABASE DESIGN ANALYST - 04/18/2024 11:59 PM DATABASE DESIGN ANALYST Hospital Encounter [facility] [address] [place] [phone] Chronic pain of right ankle Discharge Disposition: Discharge to home or self care 04/18/2024 10:37 AM DATABASE DESIGN ANALYST - 04/18/2024 11:59 PM DATABASE DESIGN ANALYST Hospital Encounter [facility] [address] [place] [phone] Right foot pain Discharge Disposition: Discharge to home or self care 04/18/2024 10:15 AM DATABASE DESIGN ANALYST - 04/18/2024 11:59 PM DATABASE DESIGN ANALYST Hospital Encounter [facility] [address] [place] [address] Left ankle pain, unspecified chronicity Discharge Disposition: Discharge to home or self care 04/18/2024 10:20 AM DATABASE DESIGN ANALYST - 04/18/2024 11:59 PM DATABASE DESIGN ANALYST Hospital Encounter [facility] [address] [place] [address] Left foot pain Discharge Disposition: Discharge to home or self care 04/18/2024 10:00 AM DATABASE DESIGN ANALYST Office Visit [facility] Orthopaedic Surgery [address] [place] [address] 2nd [address] [place] [address] Joy Dang NP Osteoarthritis of left ankle and foot (Primary Dx); Left foot pain; Left ankle pain, unspecified chronicity; Follow-up exam; Right foot pain; Chronic pain of right ankle; Osteoarthritis of right ankle and foot; Pes planovalgus; Crossover toe deformity of right foot 04/14/2024 5:19 PM DATABASE DESIGN ANALYST - 04/14/2024 10:59 PM DATABASE DESIGN ANALYST Emergency [facility] Emergency Department [address] [place] [address] Garcia Louis MD PhD Abdominal pain (Primary Dx); Bloating Discharge Disposition: Discharge to home or self care 04/14/2024 1:30 PM DATABASE DESIGN ANALYST Infusion [facility] [address] [facility] [facility] [address] [place] [phone] High risk medication use (Primary Dx); Rheumatoid arthritis involving multiple sites with positive rheumatoid factor (HCC) 04/13/2024 11:45 AM DATABASE DESIGN ANALYST Office Visit [facility] Pulmonary [address] [place] [address] Seble Mejia MD Abnormal CT of the chest (Primary Dx); Chronic obstructive pulmonary disease, unspecified COPD type (HCC) 04/12/2024 Telephone [facility] [address] [place] [phone] Gorge Cook RN 03/24/2024 Orders Only [facility] [address] [place] [phone] Pancho Thapa RN 03/17/2024 2:54 PM DATABASE DESIGN ANALYST - 03/17/2024 11:59 PM DATABASE DESIGN ANALYST Hospital Encounter [facility] Respiratory Therapy [address] [place] [address] Abnormal PFT; Interstitial lung disease (HCC) Discharge Disposition: Discharge to home or self care 03/03/2024 9:30 AM DATABASE DESIGN ANALYST Infusion [facility] Infusion Therapy [facility] 5th [place] [address] [place] [phone] Rheumatoid arthritis involving multiple sites with positive rheumatoid factor (HCC) (Primary Dx) 02/22/2024 Telephone [facility] Rheumatology [address] [facility] [address] [place] [address] Bonnie Neri, DYLON Prior Auth (Orencia (abatecept)) 02/19/2024 11:07 AM DATABASE DESIGN ANALYST - 02/19/2024 11:59 PM DATABASE DESIGN ANALYST Hospital Encounter [facility] [address] [place], [place] [phone] Rheumatoid arthritis involving multiple sites with positive rheumatoid factor (HCC) Discharge Disposition: Discharge to home or self care 02/19/2024 10:55 AM DATABASE DESIGN ANALYST Lab [facility] Endocrinology Metabolism and Lipid [address] [place] [address] 5th [place] [address] [place] [address] Rheumatoid arthritis involving multiple sites with positive rheumatoid factor (HCC) 02/19/2024 9:30 AM DATABASE DESIGN ANALYST Office Visit [facility] Rheumatology [facility] 5th [place] [address] [place] [address] Jeremi López MD PhD Rheumatoid arthritis involving multiple sites with positive rheumatoid factor (HCC) (Primary Dx); Current chronic use of systemic steroids; Long-term use of infliximab; High risk medication use from Last 3 Months Allergies Active Allergy Reactions Criticality Noted Date Comments Ciprofloxacin Rash,Unknown,Diarrh ea,Urticaria High 09/10/2009 Leflunomide Unknown High 12/11/2015 Levofloxacin Other (See comments),Unknown Low 02/19/2009 Ruptured ligaments Lisinopril Other (See comments) Low 04/14/2024 Unsure of reaction, states was taken off for either diarrhea or swelling Simvastatin Other (See comments) Low 01/25/2016 Bone pain Bone pain Wgczurh-Twn-Acc Reductase Inhibitors Muscle pain,Unknown Medium 05/18/2014 Medications blood glucose diagnostic strip 1 each 03/10/19 18 Active busPIRone (BUSPAR) 5 mg tabletIndications:Ge neralized Anxiety Disorder 1 tablet (5 mg total) as needed 02/24/19 18 Active calcium carb/vit D3/minerals (CALCIUM-VITAMIN D ORAL) Take 600 mg by mouth daily Active HYDROcodone-acetamin ophen (NORCO) 5-325 mg per tabletIndications:Pa in as needed 0 06/02/19 18 Active levothyroxine (SYNTHROID, LEVOTHROID) 88 mcg tablet Take 1 tablet (88 mcg total) by mouth daily 02/06/20 17 Active metFORMIN (GLUCOPHAGE) 500 mg tablet Take 1 tablet (500 mg total) by mouth 2 (two) times a day with meals 04/07/19 18 Active multivitamin with minerals tablet Take 1 tablet by mouth daily Active nitroglycerin (NITROSTAT) 0.[address] 1 tablet (0.4 mg total) under the tongue every 5 (five) minutes as needed 09/19/19 15 Active XARELTO 20 mg tablet daily 0 18 Active ANORO ELLIPTA 62.5-25 mcg/actuation blister with device daily 05/23/19 18 Active cholecalciferol (VITAMIN D-3) 2,000 unit tablet daily Active gabapentin (NEURONTIN) 300 mg capsule Take 1 capsule (300 mg total) by mouth as needed 04/05/19 19 Active rosuvastatin (CRESTOR) 10 mg tablet Take 1 tablet (10 mg total) by mouth once a week Active collagenase (SANTYL) ointment Apply topically as needed 09/28/19 20 Active fluticasone propionate (FLONASE) 50 mcg/actuation nasal spray INSTILL 1 SPRAY INTO EACH NOSTRIL 2 TIMES DAILY 12/06/19 20 Active albuterol HFA (PROVENTIL HFA,VENTOLIN HFA,PROAIR HFA) 90 mcg/actuation inhaler Inhale 2 puffs every 6 (six) hours as needed 08/16/[address] (PROTONIX) 40 mg EC tabletIndications:Tr eatment of Non-Bleeding Gastric Disorder Take 1 tablet (40 mg total) by mouth daily 30 tablet 11 08/14/19 21 Active inFLIXimab (REMICADE) 100 mg injection Infuse 110 mL (1,100 mg total) into a venous catheter every 8 (eight) weeks Active furosemide (LASIX) 20 mg tablet Take 2 tablets (40 mg total) by mouth daily 60 tablet 11 11/29/19 21 Active cyclobenzaprine (FLEXERIL) 10 mg tabletIndications:S/ P cervical spinal fusion PRN 02/13/20 21 Active ammonium lactate (AMLACTIN) 12 % cream 12/11/19 22 Active ketoconazole (NIZORAL) 2 % cream APPLY TO THE FEET AND TOES TWICE A DAY NEEDED. DO NOT APPLY BETWEEN THE TOES. 12/11/19 22 Active Gemtesa 75 mg tablet 0 23 Active Stiolto Respimat 2.5-2.5 mcg/actuation inhaler as needed 03/26/19 23 Active folic acid (FOLVITE) 1 mg tabletIndications:Rh eumatoid arthritis involving multiple sites with positive rheumatoid factor (HCC) Take 1 tablet (1 mg total) by mouth daily 30 tablet 11 05/24/19 23 Active diclofenac sodium (VOLTAREN) 1 % gel Apply 4 g topically 4 (four) times a day 03/04/19 24 Active ipratropium (ATROVENT) 21 mcg (0.03 %) nasal spray Administer 1-2 sprays into each nostril 3 (three) times a day Active predniSONE (DELTASONE) 5 mg tablet Take 1 tablet (5 mg) by mouth daily 06/02/19 24 Active spironolactone (ALDACTONE) 25 mg tablet TAKE 1/2 TABLET BY MOUTH EVERY DAY 45 tablet 3 06/21/19 24 Active Jardiance 10 mg tablet TAKE 1 (ONE) TABLET BY MOUTH ONCE DAILY REASONS: TYPE 2 DIABETES Active verapamil SR (CALAN SR) 180 mg CR tabletIndications:Pa roxysmal Supraventricular Tachycardia,hyperten raul TAKE 2 TABLETS (360 MG TOTAL) BY MOUTH DAILY 180 tablet 3 10/27/19 24 Active OneTouch Delica Plus Lancet 33 gauge misc USE 1 EACH ONCE DAILY 01/31/20 24 Active nystatin ointment Apply to vulva twice daily 11/26/19 24 Active Januvia 100 mg tablet Take 1 tablet (100 mg total) by mouth daily 02/03/20 24 Active predniSONE (DELTASONE) 1 mg tabletIndications:rh eumatoid arthritis Take 4 tablets (4 mg) by mouth daily 120 tablet 5 02/18/19 25 025 Active aluminum-magnesium hydroxide-simethicon e (MAALOX) suspension 200-200-20 mg/5 mL Take 15 mL by mouth 4 (four) times a day 354 mL 04/14/19 25 025 Active pioglitazone (ACTOS) 15 mg tablet Take 1 tablet (15 mg total) by mouth daily 03/02/19 25 Active Active Problems Problem Noted Date Diagnosed Date Abnormal CT of the chest 04/13/2024 Interstitial lung disease 03/17/2024 High risk medication use 10/25/2023 Long-term use of infliximab 10/25/2023 Opacity of lung on imaging study 10/25/2023 Abnormal PFT 08/25/2023 Dyspnea on exertion 07/23/2023 Morbid (severe) obesity due to excess calories 0 06/18/2023 Bilateral chronic anterior uveitis 04/18/2022 Overview (04/18/2022): Bilateral recurrent anterior uveitis Responds to topical steroids, with no sequelae of ocular inflammation currently Underlying RA sine 1996, on maximum dose Remicade with worsening joint swelling and increased episodes AU Labs Neg/nml TSPOT, HIV, HBV, HCV Assessment & Plan (04/19/2024 1:31 PM DATABASE DESIGN ANALYST): No active inflammation, call if experiencing flare Assessment & Plan (04/17/2023 10:29 AM DATABASE DESIGN ANALYST): Quiet both eyes (OU), RTC if experiencing flare Assessment & Plan (04/18/2022 12:13 PM DATABASE DESIGN ANALYST): No sign of inflammation or sequelae from uveitis PLAN observe Diabetes mellitus type 2 without retinopathy 04/2022 Assessment & Plan (04/19/2024 1:31 PM DATABASE DESIGN ANALYST): Pt ed. Stressed BG control (HbA1C<7) to reduce the risk for diabetic ocular complications. Lab Results Component Value Date HGBA1C 5.8 (H) 06/01/2015 Assessment & Plan (04/17/2023 10:29 AM DATABASE DESIGN ANALYST): No retinopathy both eyes (OU). Pt ed. Stressed BG control (HbA1C<7) to reduce the risk for diabetic ocular complications. Lab Results Component Value Date HGBA1C 5.8 (H) 06/01/2015 Osteopenia 02/22/2022 Esophageal reflux 12/10/2021 Age-related cataract of both eyes 04/15/2021 Assessment & Plan (04/19/2024 1:31 PM DATABASE DESIGN ANALYST): Not v/s, monitor Assessment & Plan (05/06/2023 9:14 AM CDT): Stable best-corrected visual acuity (BVA), monitor Release updated glasses Rx Assessment & Plan (04/15/2021 11:03 AM DATABASE DESIGN ANALYST): She is not bothered, observe Right rotator cuff tear arthropathy 11/24/2020 Controlled substance agreement signed 11/20/2020 Current chronic use of systemic steroids 021 Chronic diastolic heart failure 09/02/2020 Overview (05/30/2021): TTE 07/18/20 with normal LVEF, evidence of diastolic dysfunction, no valvular abnormalities [facility] 2013 without significant disease Negative HANNA November 2020 proBNP = 10 in August 2020 History of uveitis 09/02/2020 Assessment & Plan (04/15/2021 11:02 AM DATABASE DESIGN ANALYST): She has no active inflammation today. Follow up in [address] Urena History of pulmonary embolus (PE) 09/02/2020 History of diverticulitis 09/02/2020 Postablative hypothyroidism 09/02/2020 S/P cervical spinal fusion 09/02/2020 Personal history of COVID-19 09/02/2020 COPD (chronic obstructive pulmonary disease) BIJAN on CPAP 05/13/2018 Rheumatoid arthritis involvi ng multiple sites with positive rheumatoid factor 06/26/2017 Resolved Problems Problem Noted Date Diagnosed Date Resolved Date Erythema nodosum 09/03/2020 10/18/2021 Family history of scleroderma 09/03/2020 11/24/2020 Tachycardia, paroxysmal 05/16/202008/2022 Overview (05/30/2021): 07/2020- Extended Holter with an avg HR 91 bpm, rare PVCs and PACs Social History Tobacco Use Types Packs/Day Years Used Date Smoking Tobacco: Former Smokeless Tobacco: Never Tobacco Cessation:Counseling Given: Not Answered Alcohol Use Standard Drinks/Week Comments No 0 [...] on file Legal Sex Female 7:32 PM DATABASE DESIGN ANALYST Gender Identity Not on file Sexual Orientation Not on file Last Filed Vital Signs Vital Sign Reading Time Taken Comments Blood Pressure 132/97 04/14/2024 8:04 PM DATABASE DESIGN ANALYST Pulse 80 04/14/2024 8:04 PM DATABASE DESIGN ANALYST Temperature 36.4 C (97.5 F) 04/14/2024 3:02 PM DATABASE DESIGN ANALYST Respiratory Rate 18 04/14/2024 8:04 PM DATABASE DESIGN ANALYST Oxygen Saturation 99% 04/14/2024 8:04 PM DATABASE DESIGN ANALYST Inhaled Oxygen Concentration - - Weight 106.6 kg (235 lb) 04/18/2024 10:20 AM DATABASE DESIGN ANALYST Height 176.5 cm (5' 9.5 ) 04/18/2024 10:20 AM CS T Body Mass Index 34.21 04/18/2024 10:20 AM DATABASE DESIGN ANALYST Plan of Treatment Not on file Procedures Procedure Name Priority Date/Time Associated Diagnosis Comments XR FOOT RIGHT 3 OR MORE VIEWS Schedule Routine, Read Routine (OP Routine) 04/18/2024 10:48 AM DATABASE DESIGN ANALYST Right foot pain XR FOOT LEFT 3 OR MORE VIEWS Schedule Routine, Read Routine (OP Routine) 04/18/2024 10:48 AM DATABASE DESIGN ANALYST Left foot pain XR ANKLE LEFT 3 OR MORE VIEWS Schedule Routine, Read Routine (OP Routine) 04/18/2024 10:48 AM DATABASE DESIGN ANALYST Left ankle pain, unspecified chronicity XR ANKLE RIGHT 3 OR MORE VIEWS Schedule Routine, Read Routine (OP Routine) 04/18/2024 10:48 AM DATABASE DESIGN ANALYST Chronic pain of right ankle URINALYSIS AND REFLEX TO MICROSCOPIC STAT 04/14/2024 5:50 PM DATABASE DESIGN ANALYST POCT GLUCOSE DEVICE Routine 04/14/2024 5 :39 PM DATABASE DESIGN ANALYST TROPONIN I HIGH-SENSITIVITY 2-HOUR Timed 04/14/2024 5:31 PM DATABASE DESIGN ANALYST ECG 12-LEAD STAT 04/14/2024 3:38 PM DATABASE DESIGN ANALYST EGFR STAT 04/14/2024 3:25 PM DATABASE DESIGN ANALYST DIFFERENTIAL AUTO STAT 04/14/2024 3:2 5 PM DATABASE DESIGN ANALYST TROPONIN I HIGH-SENSITIVITY SERIES (BASELINE, 2HR, 4HR, 6HR) STAT 04/14/2024 3:25 PM DATABASE DESIGN ANALYST LIPASE STAT 04/14/2024 3:25 PM DATABASE DESIGN ANALYST COMPREHENSIVE METABOLIC PANEL STAT 04/14/2024 3:25 PM DATABASE DESIGN ANALYST CBC WITH AUTO DIFFERENTIAL STAT 04/14/2024 3:25 PM DATABASE DESIGN ANALYST POCT GLUCOSE DEVICE Routine 04/14/2024 3 :16 PM DATABASE DESIGN ANALYST PULMONARY FUNCTION TEST (PFT) Routine 03/17/2024 3:55 PM DATABASE DESIGN ANALYST Abnormal PFT Interstitial lung disease (HCC) IMMUNOGLOBULIN PROFILE Routine 02/19/2024 11:07 AM DATABASE DESIGN ANALYST Rheumatoid arthritis involving multiple sites with positive rheumatoid factor (HCC) CRP (ACUTE PHASE) Routine 02/19/2024 11: 07 AM DATABASE DESIGN ANALYST Rheumatoid arthritis involving multiple sites with positive rheumatoid factor (HCC) COMPREHENSIVE METABOLIC PANEL Routine 02/19/2024 11:07 AM DATABASE DESIGN ANALYST Rheumatoid arthritis involving multiple sites with positive rheumatoid factor (HCC) CBC WITH AUTO DIFFERENTIAL Routine 02/19/2024 11:07 AM DATABASE DESIGN ANALYST Rheumatoid arthritis involving multiple sites with positive rheumatoid factor (HCC) HEPATITIS C ANTIBODY Routine Gen Lab 01/23/2017 1:16 PM DATABASE DESIGN ANALYST SCREENING MAMMOGRAM Routine 10/19/2012 1 2:46 PM CDT SERUM LIPID PANEL Routine 10/19/2012 12: 05 PM CDT from Last 3 Months or Most Recently Relevant to Health Maintenance Results * XR Foot Right 3+ View (04/18/2024 10:48 AM DATABASE DESIGN ANALYST) Anatomical Region Laterality Modality Lower Extremities, Foot Right Computed Radiography 04/18/2024 3:07 PM DATABASE DESIGN ANALYST Impressions 04/18/2024 6:19 PM DATABASE DESIGN ANALYST 1. 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 2. Mild right mid and hindfoot osteoarthritis. Dictated by: Matthew Chapin MD PHD The radiology attending physician has personally reviewed this study, and had reviewed and/or edited this written report and agrees with it. Electronically signed by: Kevin Hermosillo MD Narrative 04/18/2024 6:19 PM DATABASE DESIGN ANALYST EXAMINATION: 1. XR ANKLE LEFT 3+ VIEWS 2. XR ANKLE RIGHT 3+ VIEWS 3. XR FOOT LEFT 3+ VIEWS 4. XR FOOT RIGHT 3+ VIEWS HISTORY: 63-year-old with rheumatoid arthritis and bilateral foot pain. FINDINGS: Left ankle: 3 views of the left ankle are submitted for interpretation. Comparison is made to plain radiograph(s) dated 03/02/2020. There is progressive subtalar, talonavicular, navicular-cuneiform, and calcaneocuboid joint space narrowing, subchondral sclerosis, and spur formation, representing severe osteoarthritis. Tiny Achilles tendon enthesophyte. Small plantar calcaneal spur. No acute fracture or dislocation. Right ankle: 3 views of the right ankle are submitted for interpretation. Comparison is made to plain radiographs dated 03/02/2020. There is mild hindfoot and midfoot osteoarthritis. Small Achilles tendon enthesophyte. Small plantar calcaneal spur. Left foot: 3 views of the left foot are submitted for interpretation. Comparison is made to plain radiographs dated 03/02/2020. Redemonstrated severe progressive midfoot and hindfoot osteoarthritis. No acute fracture or dislocation. Pes planovalgus. Right foot: 3 views of the right foot are submitted for interpretation. Comparison is made to plain radiographs dated 03/02/2020. There is progressive subtalar, talonavicular, navicular-cuneiform, and calcaneocuboid joint space narrowing, subchondral sclerosis, and spur formation, representing severe osteoarthritis. Tiny Achilles tendon enthesophyte. Small plantar calcaneal spur. No acute fracture or dislocation. 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 Pes planovalgus Procedure Note Dena Hermosillo MD - 04/18/2024 EXAMINATION: 1. XR ANKLE LEFT 3+ VIEWS 2. XR ANKLE RIGHT 3+ VIEWS 3. XR FOOT LEFT 3+ VIEWS 4. XR FOOT RIGHT 3+ VIEWS HISTORY: 63-year-old with rheumatoid arthritis and bilateral foot pain. FINDINGS: Left ankle: 3 views of the left ankle are submitted for interpretation. Comparison is made to plain radiograph(s) dated 03/02/2020. There is progressive subtalar, talonavicular, navicular-cuneiform, and calcaneocuboid joint space narrowing, subchondral sclerosis, and spur formation, representing severe osteoarthritis. Tiny Achilles tendon enthesophyte. Small plantar calcaneal spur. No acute fracture or dislocation. Right ankle: 3 views of the right ankle are submitted for interpretation. Comparison is made to plain radiographs dated 03/02/2020. There is mild hindfoot and midfoot osteoarthritis. Small Achilles tendon enthesophyte. Small plantar calcaneal spur. Left foot: 3 views of the left foot are submitted for interpretation. Comparison is made to plain radiographs dated 03/02/2020. Redemonstrated severe progressive midfoot and hindfoot osteoarthritis. No acute fracture or dislocation. Pes planovalgus. Right foot: 3 views of the right foot are submitted for interpretation. Comparison is made to plain radiographs dated 03/02/2020. There is progressive subtalar, talonavicular, navicular-cuneiform, and calcaneocuboid joint space narrowing, subchondral sclerosis, and spur formation, representing severe osteoarthritis. Tiny Achilles tendon enthesophyte. Small plantar calcaneal spur. No acute fracture or dislocation. 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 Pes planovalgus IMPRESSION: 1. 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 2. Mild right mid and hindfoot osteoarthritis. Dictated by: Matthew Chapin MD PHD The radiology attending physician has personally reviewed this study, and had reviewed and/or edited this written report and agrees with it. Electronically signed by: Kevin Hermosillo MD Joy Dang NP IM XR PROCEDURES Final Result * XR Foot Left 3+ View (04/18/2024 10:48 AM DATABASE DESIGN ANALYST) Anatomical Region Laterality Modality Lower Extremities, Foot Left Computed Radiography 04/18/2024 3:07 PM DATABASE DESIGN ANALYST Impressions 04/18/2024 6:19 PM DATABASE DESIGN ANALYST 1. 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 2. Mild right mid and hindfoot osteoarthritis. Dictated by: Matthew Chapin MD PHD The radiology attending physician has personally reviewed this study, and had reviewed and/or edited this written report and agrees with it. Electronically signed by: Kevin Hermosillo MD Narrative 04/18/2024 6:19 PM DATABASE DESIGN ANALYST EXAMINATION: 1. XR ANKLE LEFT 3+ VIEWS 2. XR ANKLE RIGHT 3+ VIEWS 3. XR FOOT LEFT 3+ VIEWS 4. XR FOOT RIGHT 3+ VIEWS HISTORY: 63-year-old with rheumatoid arthritis and bilateral foot pain. FINDINGS: Left ankle: 3 views of the left ankle are submitted for interpretation. Comparison is made to plain radiograph(s) dated 03/02/2020. There is progressive subtalar, talonavicular, navicular-cuneiform, and calcaneocuboid joint space narrowing, subchondral sclerosis, and spur formation, representing severe osteoarthritis. Tiny Achilles tendon enthesophyte. Small plantar calcaneal spur. No acute fracture or dislocation. Right ankle: 3 views of the right ankle are submitted for interpretation. Comparison is made to plain radiographs dated 03/02/2020. There is mild hindfoot and midfoot osteoarthritis. Small Achilles tendon enthesophyte. Small plantar calcaneal spur. Left foot: 3 views of the left foot are submitted for interpretation. Comparison is made to plain radiographs dated 03/02/2020. Redemonstrated severe progressive midfoot and hindfoot osteoarthritis. No acute fracture or dislocation. Pes planovalgus. Right foot: 3 views of the right foot are submitted for interpretation. Comparison is made to plain radiographs dated 03/02/2020. There is progressive subtalar, talonavicular, navicular-cuneiform, and calcaneocuboid joint space narrowing, subchondral sclerosis, and spur formation, representing severe osteoarthritis. Tiny Achilles tendon enthesophyte. Small plantar calcaneal spur. No acute fracture or dislocation. 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 Pes planovalgus Procedure Note Dena Hermosillo MD - 04/18/2024 EXAMINATION: 1. XR ANKLE LEFT 3+ VIEWS 2. XR ANKLE RIGHT 3+ VIEWS 3. XR FOOT LEFT 3+ VIEWS 4. XR FOOT RIGHT 3+ VIEWS HISTORY: 63-year-old with rheumatoid arthritis and bilateral foot pain. FINDINGS: Left ankle: 3 views of the left ankle are submitted for interpretation. Comparison is made to plain radiograph(s) dated 03/02/2020. There is progressive subtalar, talonavicular, navicular-cuneiform, and calcaneocuboid joint space narrowing, subchondral sclerosis, and spur formation, representing severe osteoarthritis. Tiny Achilles tendon enthesophyte. Small plantar calcaneal spur. No acute fracture or dislocation. Right ankle: 3 views of the right ankle are submitted for interpretation. Comparison is made to plain radiographs dated 03/02/2020. There is mild hindfoot and midfoot osteoarthritis. Small Achilles tendon enthesophyte. Small plantar calcaneal spur. Left foot: 3 views of the left foot are submitted for interpretation. Comparison is made to plain radiographs dated 03/02/2020. Redemonstrated severe progressive midfoot and hindfoot osteoarthritis. No acute fracture or dislocation. Pes planovalgus. Right foot: 3 views of the right foot are submitted for interpretation. Comparison is made to plain radiographs dated 03/02/2020. There is progressive subtalar, talonavicular, navicular-cuneiform, and calcaneocuboid joint space narrowing, subchondral sclerosis, and spur formation, representing severe osteoarthritis. Tiny Achilles tendon enthesophyte. Small plantar calcaneal spur. No acute fracture or dislocation. 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 Pes planovalgus IMPRESSION: 1. 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 2. Mild right mid and hindfoot osteoarthritis. Dictated by: Matthew Chapin MD PHD The radiology attending physician has personally reviewed this study, and had reviewed and/or edited this written report and agrees with it. Electronically signed by: Kevin Hermosillo MD Joy Dang NP IMG XR PROCEDURES Final Result * XR Ankle Left 3+ View (04/18/2024 10:48 AM DATABASE DESIGN ANALYST) Anatomical Region Laterality Modality Lower Extremities, Ankle Left Compute d Radiography 04/18/2024 3:07 PM DATABASE DESIGN ANALYST Impressions 04/18/2024 6:19 PM DATABASE DESIGN ANALYST 1. 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 2. Mild right mid and hindfoot osteoarthritis. Dictated by: Matthew Chapin MD PHD The radiology attending physician has personally reviewed this study, and had reviewed and/or edited this written report and agrees with it. Electronically signed by: Kevin Hermosillo MD Narrative 04/18/2024 6:19 PM DATABASE DESIGN ANALYST EXAMINATION: 1. XR ANKLE LEFT 3+ VIEWS 2. XR ANKLE RIGHT 3+ VIEWS 3. XR FOOT LEFT 3+ VIEWS 4. XR FOOT RIGHT 3+ VIEWS HISTORY: 63-year-old with rheumatoid arthritis and bilateral foot pain. FINDINGS: Left ankle: 3 views of the left ankle are submitted for interpretation. Comparison is made to plain radiograph(s) dated 03/02/2020. There is progressive subtalar, talonavicular, navicular-cuneiform, and calcaneocuboid joint space narrowing, subchondral sclerosis, and spur formation, representing severe osteoarthritis. Tiny Achilles tendon enthesophyte. Small plantar calcaneal spur. No acute fracture or dislocation. Right ankle: 3 views of the right ankle are submitted for interpretation. Comparison is made to plain radiographs dated 03/02/2020. There is mild hindfoot and midfoot osteoarthritis. Small Achilles tendon enthesophyte. Small plantar calcaneal spur. Left foot: 3 views of the left foot are submitted for interpretation. Comparison is made to plain radiographs dated 03/02/2020. Redemonstrated severe progressive midfoot and hindfoot osteoarthritis. No acute fracture or dislocation. Pes planovalgus. Right foot: 3 views of the right foot are submitted for interpretation. Comparison is made to plain radiographs dated 03/02/2020. There is progressive subtalar, talonavicular, navicular-cuneiform, and calcaneocuboid joint space narrowing, subchondral sclerosis, and spur formation, representing severe osteoarthritis. Tiny Achilles tendon enthesophyte. Small plantar calcaneal spur. No acute fracture or dislocation. 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 Pes planovalgus Procedure Note Dena Hermosillo MD - 04/18/2024 EXAMINATION: 1. XR ANKLE LEFT 3+ VIEWS 2. XR ANKLE RIGHT 3+ VIEWS 3. XR FOOT LEFT 3+ VIEWS 4. XR FOOT RIGHT 3+ VIEWS HISTORY: 63-year-old with rheumatoid arthritis and bilateral foot pain. FINDINGS: Left ankle: 3 views of the left ankle are submitted for interpretation. Comparison is made to plain radiograph(s) dated 03/02/2020. There is progressive subtalar, talonavicular, navicular-cuneiform, and calcaneocuboid joint space narrowing, subchondral sclerosis, and spur formation, representing severe osteoarthritis. Tiny Achilles tendon enthesophyte. Small plantar calcaneal spur. No acute fracture or dislocation. Right ankle: 3 views of the right ankle are submitted for interpretation. Comparison is made to plain radiographs dated 03/02/2020. There is mild hindfoot and midfoot osteoarthritis. Small Achilles tendon enthesophyte. Small plantar calcaneal spur. Left foot: 3 views of the left foot are submitted for interpretation. Comparison is made to plain radiographs dated 03/02/2020. Redemonstrated severe progressive midfoot and hindfoot osteoarthritis. No acute fracture or dislocation. Pes planovalgus. Right foot: 3 views of the right foot are submitted for interpretation. Comparison is made to plain radiographs dated 03/02/2020. There is progressive subtalar, talonavicular, navicular-cuneiform, and calcaneocuboid joint space narrowing, subchondral sclerosis, and spur formation, representing severe osteoarthritis. Tiny Achilles tendon enthesophyte. Small plantar calcaneal spur. No acute fracture or dislocation. 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 Pes planovalgus IMPRESSION: 1. 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 2. Mild right mid and hindfoot osteoarthritis. Dictated by: Matthew Chapin MD PHD The radiology attending physician has personally reviewed this study, and had reviewed and/or edited this written report and agrees with it. Electronically signed by: Kevin Hermosillo MD Joy Dang NP IMG XR PROCEDURES Final Result * XR Ankle Right 3+ View (04/18/2024 10:48 AM DATABASE DESIGN ANALYST) Anatomical Region Laterality Modality Lower Extremities, Ankle Right Compute d Radiography 04/18/2024 3:07 PM DATABASE DESIGN ANALYST Impressions 04/18/2024 6:19 PM DATABASE DESIGN ANALYST 1. 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 2. Mild right mid and hindfoot osteoarthritis. Dictated by: Matthew Chapin MD PHD The radiology attending physician has personally reviewed this study, and had reviewed and/or edited this written report and agrees with it. Electronically signed by: Kevin Hermosillo MD Narrative 04/18/2024 6:19 PM DATABASE DESIGN ANALYST EXAMINATION: 1. XR ANKLE LEFT 3+ VIEWS 2. XR ANKLE RIGHT 3+ VIEWS 3. XR FOOT LEFT 3+ VIEWS 4. XR FOOT RIGHT 3+ VIEWS HISTORY: 63-year-old with rheumatoid arthritis and bilateral foot pain. FINDINGS: Left ankle: 3 views of the left ankle are submitted for interpretation. Comparison is made to plain radiograph(s) dated 03/02/2020. There is progressive subtalar, talonavicular, navicular-cuneiform, and calcaneocuboid joint space narrowing, subchondral sclerosis, and spur formation, representing severe osteoarthritis. Tiny Achilles tendon enthesophyte. Small plantar calcaneal spur. No acute fracture or dislocation. Right ankle: 3 views of the right ankle are submitted for interpretation. Comparison is made to plain radiographs dated 03/02/2020. There is mild hindfoot and midfoot osteoarthritis. Small Achilles tendon enthesophyte. Small plantar calcaneal spur. Left foot: 3 views of the left foot are submitted for interpretation. Comparison is made to plain radiographs dated 03/02/2020. Redemonstrated severe progressive midfoot and hindfoot osteoarthritis. No acute fracture or dislocation. Pes planovalgus. Right foot: 3 views of the right foot are submitted for interpretation. Comparison is made to plain radiographs dated 03/02/2020. There is progressive subtalar, talonavicular, navicular-cuneiform, and calcaneocuboid joint space narrowing, subchondral sclerosis, and spur formation, representing severe osteoarthritis. Tiny Achilles tendon enthesophyte. Small plantar calcaneal spur. No acute fracture or dislocation. 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 Pes planovalgus Procedure Note Dena Hermosillo MD - 04/18/2024 EXAMINATION: 1. XR ANKLE LEFT 3+ VIEWS 2. XR ANKLE RIGHT 3+ VIEWS 3. XR FOOT LEFT 3+ VIEWS 4. XR FOOT RIGHT 3+ VIEWS HISTORY: 63-year-old with rheumatoid arthritis and bilateral foot pain. FINDINGS: Left ankle: 3 views of the left ankle are submitted for interpretation. Comparison is made to plain radiograph(s) dated 03/02/2020. There is progressive subtalar, talonavicular, navicular-cuneiform, and calcaneocuboid joint space narrowing, subchondral sclerosis, and spur formation, representing severe osteoarthritis. Tiny Achilles tendon enthesophyte. Small plantar calcaneal spur. No acute fracture or dislocation. Right ankle: 3 views of the right ankle are submitted for interpretation. Comparison is made to plain radiographs dated 03/02/2020. There is mild hindfoot and midfoot osteoarthritis. Small Achilles tendon enthesophyte. Small plantar calcaneal spur. Left foot: 3 views of the left foot are submitted for interpretation. Comparison is made to plain radiographs dated 03/02/2020. Redemonstrated severe progressive midfoot and hindfoot osteoarthritis. No acute fracture or dislocation. Pes planovalgus. Right foot: 3 views of the right foot are submitted for interpretation. Comparison is made to plain radiographs dated 03/02/2020. There is progressive subtalar, talonavicular, navicular-cuneiform, and calcaneocuboid joint space narrowing, subchondral sclerosis, and spur formation, representing severe osteoarthritis. Tiny Achilles tendon enthesophyte. Small plantar calcaneal spur. No acute fracture or dislocation. 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 Pes planovalgus IMPRESSION: 1. 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 2. Mild right mid and hindfoot osteoarthritis. Dictated by: Matthew Chapin MD PHD The radiology attending physician has personally reviewed this study, and had reviewed and/or edited this written report and agrees with it. Electronically signed by: Kevin Hermosillo MD Joy Dang INSTRUMENTATION CONTROLS ENGINEER IMG XR PROCEDURES Final Result * Urinalysis reflex to microscopic (04/14/2024 5:50 PM DATABASE DESIGN ANALYST) Color, ur Straw Yellow Clarity, ur Clear Clear [facility] Specific gravity, ur 1.006 1.003 - 1.030 [facility] pH, urine 7.0 [facility] Comment: Interpretive Data U rine pH is affected by diet, medications, systemic acid-base disturbances, and renal tubular function. pH may affect urinary stone formation. For example, urine pH below 6.0 may help reduce the tendency for calcium phosphate stones and pH greater than 6.0 may reduce the tendency for uric acid stone formation. Source: [place] [facility] [employer] Current Interpretive Data was last revised on 2017 Protein, ur ql Negative Negative [facility] Glucose, ur ql Negative Negative [facility] Ketones, ur Negative Negative [facility] Bilirubin, ur Negative Negative [facility] Blood, ur Negative Negative [facility] Urobilinogen, ur <2.0 <2.0 mg/dL [facility] Nitrite, ur Negative Negative [facility] Leukocyte esterase, ur Negative Negative [facility] UA reflex comment Reflex conditions for microscopic UA not met. [facility] Urine 04/14/2024 5:50 PM DATABASE DESIGN ANALYST 04/14/2024 5:58 PM DATABASE DESIGN ANALYST us Garcia Louis MD PhD LAB URINE ORDERABLE S Final Result [facility] Department [place] [address] * POCT glucose (04/14/2024 5:39 PM DATABASE DESIGN ANALYST) Glucose, POC 123 70 - 199 mg/dL Blood 04/14/2024 5:39 PM DATABASE DESIGN ANALYST 04/14/2024 5:39 PM DATABASE DESIGN ANALYST Notinfile Unknown LAB POCT ORDERABLES - DEVICE F inal Result Performing Organization Address City/[facility]/ZIP Co de Phone Number [facility] Department [place] [address] * Troponin I high-sensitivity 2-hour (04/14/2024 5:31 PM DATABASE DESIGN ANALYST) Trop I hs <4 <=17 ng/L Comment: Interpretive Data For further hscTnI resources including the diagnostic algorithm and an aid in interpretation, copy and paste this link: https://bjhlab.testcatalog.org/show/[email or web address] Current Interpretive Data last revised 2019. Trop I hs delta 0 ng/L [facility] Trop I hs interp Insignificant [facility] Blood 04/14/2024 5:31 PM DATABASE DESIGN ANALYST 04/14/2024 5:36 PM DATABASE DESIGN ANALYST us Angel Davison MD LAB BLOOD ORDERABLES F inal Result Performing Organization Address City/[facility]/ZIP Co de Phone Number [facility] Department [place] [address] * ECG 12-LEAD (04/14/2024 3:38 PM DATABASE DESIGN ANALYST) Narrative [facility] - 04/14/2024 3:38 PM DATABASE DESIGN ANALYST Gabriel Gunn MD 04/14/2024 3:39 PM ECG 12 lead Date/Time: 04/14/2024 3:38 PM Performed by: Gabriel Gunn MD Authorized by: Angel Davison MD Comments: Normal sinus rhythm, rate of 73, normal axis, normal intervals, inferior Q-waves though these are old, seen on prior EKG 12/11/17. Doubt acute ischemia. Procedure Note Gabriel Gunn MD - 04/14/2024 3:38 PM CST Procedure ECG 12 lead Date/Time: 04/14/2024 3:38 PM Performed by: Gabriel Gunn MD Authorized by: Angel Davison MD Comments: Normal sinus rhythm, rate of 73, normal axis, normal intervals,inferior Q-waves though these are old, seen on prior EKG 12/11/17. Doubtacute ischemia. Gabriel Gunn MD 04/14/24 1539 us Garcia Louis MD PhD ECG ORDERABLES Fin al Result Performing Organization Address City/[facility]/ZIP Co de Phone Number [facility] * Troponin I high-sensitivity series (baseline, 2hr, 4hr, 6hr) (04/14/2024 3:25 PM DATABASE DESIGN ANALYST) Trop I hs <4 <=17 ng/L Comment: Interpretive Data For further hscTnI resources including the diagnostic algorithm and an aid in interpretation, copy and paste this link: https://bjhlab.testcatalog.org/show/[email or web address] Current Interpretive Data last revised 2019. Blood 04/14/2024 3:25 PM DATABASE DESIGN ANALYST 04/14/2024 3:50 PM DATABASE DESIGN ANALYST us Garcia Louis MD PhD LAB BLOOD ORDERABLE S Final Result Performing Organization Address [facility] Co de Phone Number [facility] [place] [address] * eGFR (04/14/2024 3:25 PM DATABASE DESIGN ANALYST) eGFR 89 >=60 mL/min/1. 73 m2 Comment: Interpretive Data Reference Interval Normal >/= 90 mL/min/1.73m2 Mildly decreased* 60 - 89 mL/min/1.73m2 Mildly to moderately decreased 45 - 59 mL/min/1.73m2 Moderately to severely decreased 30 - 44 mL/min/1.73m2 Severely decreased 15 - 29 mL/min/1.73m2 Kidney Failure < 15 mL/min/1.73m2 *Relative to young adult level Estimated glomerular filtration rate is determined by the 2020 CKD-EPI equation recommended by the National Kidney Foundation (A Unifying Approach to GFR Estimation: Recommendations of the NKF-ASK Task Force on Reassessing the Inclusion of Race in Diagnosing Kidney Disease, JASN 2020). The CKD-EPI equation should not be used for patients with unstable renal function and has not been validated in children and those over 70. Current interpretive data was last reviewed 2020. Blood 04/14/2024 3:25 PM DATABASE DESIGN ANALYST 04/14/2024 3:50 PM DATABASE DESIGN ANALYST us Garcia Louis MD PhD LAB BLOOD ORDERABLE S Final Result Performing Organization Address City/[facility]/ZIP Co de Phone Number [facility] [place] [address] * Differential, auto (04/14/2024 3:25 PM DATABASE DESIGN ANALYST) Neutrophil abs 6.3 1.5 - 6.5 K/cumm Imm gran abs 0.1 0.0 - 0.1 K/cumm [facility] Lymphocyte abs 2.2 0.8 - 3.3 K/cumm [facility] Monocyte abs 0.5 0.2 - 0.8 K/cumm [facility] Eosinophil abs 0.1 0.0 - 0.5 K/cumm [facility] Basophil abs 0.0 0.0 - 0.1 K/cumm [facility] Neutrophil pct 68.8 % [facility] Comment: Interpretive Data Percent cell count reference ranges are not reported, since discordance with absolute values may lead to misinterpretation of CBC data. Current Interpretive Data was last revised on 2017. Imm gran pct 0.7 % [facility] Comment: Interpretive Data Percent cell count reference ranges are not reported, since discordance with absolute values may lead to misinterpretation of CBC data. Current Interpretive Data was last revised on 2017. Lymphocyte pct 23.7 % [facility] Comment: Interpretive Data Percent cell count reference ranges are not reported, since discordance with absolute values may lead to misinterpretation of CBC data. Current Interpretive Data was last revised on 2017. Monocyte pct 5.3 % [facility] Comment: Interpretive Data Percent cell count reference ranges are not reported, since discordance with absolute values may lead to misinterpretation of CBC data. Current Interpretive Data was last revised on 2017. Eosinophil pct 1.1 % [facility] Comment: Interpretive Data Percent cell count reference ranges are not reported, since discordance with absolute values may lead to misinterpretation of CBC data. Current Interpretive Data was last revised on 2017. Basophil pct 0.4 % [facility] Comment: Interpretive Data Percent cell count reference ranges are not reported, since discordance with absolute values may lead to misinterpretation of CBC data. Current Interpretive Data was last revised on 2017. Blood 04/14/2024 3:25 PM DATABASE DESIGN ANALYST 04/14/2024 3:50 PM DATABASE DESIGN ANALYST us Garcia Louis MD PhD LAB BLOOD ORDERABLE S Final Result [facility] Department [place] [address] * CBC with auto differential (04/14/2024 3:25 PM DATABASE DESIGN ANALYST) [facility] WBC 9.1 3.8 - 9.9 K/cumm Hgb 12.9 11.9 - 15.5 g/dL [facility] Hct 39.0 35.6 - 45.5 % [facility] Plt 313 150 - 400 K/cumm [facility] MPV 9.5 9.1 - 12.3 fL [facility] RBC 4.55 3.90 - 5.20 M/cumm [facility] MCV 85.7 81.3 - 96.4 fL [facility] MCH 28.4 27.1 - 33.3 pg [facility] MCHC 33.1 32.3 - 35.7 g/dL [facility] RDW CV 12.6 11.1 - 14.9 % [facility] RDW SD 39.2 35.7 - 48.1 fL [facility] NRBC abs 0.00 0.00 - 0.01 K/cumm [facility] Blood Venous blood specimen / Unknown 04/14/2024 3:25 PM DATABASE DESIGN ANALYST 04/14/2024 3:50 PM DATABASE DESIGN ANALYST us Garcia Louis MD PhD LAB BLOOD ORDERABLE S Final Result Performing Organization Address City/[facility]/ZIP Co de Phone Number [facility] [place] [address] * Lipase (04/14/2024 3:25 PM DATABASE DESIGN ANALYST) [facility] Lipase 22 10 - 99 Units/L Blood Venous blood specimen / Unknown 04/14/2024 3:25 PM DATABASE DESIGN ANALYST 04/14/2024 3:50 PM DATABASE DESIGN ANALYST us Garcia Louis MD PhD LAB BLOOD ORDERABLE S Final Result Performing Organization Address City/[facility]/ZIP Co de Phone Number [facility] [place] [address] * Comprehensive metabolic panel (04/14/2024 3:25 PM DATABASE DESIGN ANALYST) [facility] Sodium 137 135 - 145 mmol/L Potassium, pl 3.9 3.3 - 4.9 mmol/L [facility] Chloride 100 97 - 110 mmol/L [facility] CO2 25 22 - 32 mmol/L [facility] Anion gap 12 2 - 15 mmol/L [facility] BUN 10 6 - 25 mg/dL [facility] Creatinine 0.76 0.60 - 1.10 mg/dL [facility] Glucose 181 70 - 199 mg/dL [facility] Comment: Interpretive Data Fasting glucose >/= 126 mg/dl is diagnostic for diabetes. Fasting is defined as no caloric intake for at least 8 hours. Fasting glucose between 100 mg/dl to 125 mg/dl is diagnostic of prediabetes. In a patient with classic symptoms of hyperglycemia or hyperglycemic crisis, a random glucose >/= 200 mg/dl is diagnostic for diabetes. In the absence of unequivocal hyperglycemia, results should be confirmed by repeat testing. The classification and Diagnosis of Diabetes Diabetes Care 2021; 46: S19-S40. Current interpretive data was last revised 2022. Calcium 9.2 8.5 - 10.3 mg/dL [facility] Bilirubin, total 0.6 0.1 - 1.2 mg/dL [facility] Protein, pl 7.5 6.5 - 8.5 g/dL [facility] Albumin 3.8 3.5 - 5.0 g/dL [facility] Alk phos 74 40 - 130 Units/L [facility] ALT 34 7 - 45 Units/L [facility] AST 28 10 - 45 Units/L [facility] Blood 04/14/2024 3:25 PM DATABASE DESIGN ANALYST 04/14/2024 3:50 PM DATABASE DESIGN ANALYST us Garcia Louis MD PhD LAB BLOOD ORDERABLE S Final Result [facility] [place] [address] * POCT glucose (04/14/2024 3:16 PM DATABASE DESIGN ANALYST) Glucose, POC 176 70 - 199 mg/dL Blood 04/14/2024 3:16 PM DATABASE DESIGN ANALYST 04/14/2024 3:16 PM DATABASE DESIGN ANALYST us Notinfile Unknown LAB POCT ORDERABLES - DEVICE F inal Result [facility] Department [place] [address] * (ABNORMAL) Pulmonary Function Test - (03/17/2024 3:55 PM DATABASE DESIGN ANALYST) Pathologist [facility] FVC PRE 2.88 2.29 - 4.02 [facility] FEV1 PRE 2.54 1.77 - 3.11 L [facility] [id number] 88.21 66.97 - 89.03 % [facility] [id number]% PRE 3.67 0.89 - 3.92 L/s [facility] PEF PRE 6.81 5.19 - 8.15 L/s [facility] DLCOc SB 18.54(A) 19.82 - 31.29 ml/(min*mm Hg) [facility] DLCO/VA PRE 4.85 3.17 - 5.67 ml/(min*mm Hg*L) [facility] VA 3.82(A) 5.63 - 5.63 L [facility] TLC PRE 4.38(A) 4.79 - 6.76 L [facility] VC PRE 2.88 2.71 - 4.09 L [facility] IC PRE 2.45(A) 2.58 - 2.58 L [facility] FRC PL PRE 1.94(A) 2.17 - 3.81 L [facility] ERV PRE 0.43(A) 0.82 - 0.82 L [facility] RV PRE 1.50(A) 1.59 - 2.74 L [facility] VTG 2.07 L [facility] RAW PRE 3.05(A) 3.06 - 3.06 cmH2O*s/L [facility] Anatomical Region Laterality Modality PFT 03/17/2024 3:06 PM DATABASE DESIGN ANALYST Impressions 03/20/2024 8:37 PM DATABASE DESIGN ANALYST 1. [id number] restrictive ventilatory limitation 2. Mild diffusion impairment 3. Ambulatory oximetry was performed and at this level of activity the patient did not require supplemental oxygen Electronically signed by Tristian Carrillo MD Pulmonary & Critical Care Narrative 03/20/2024 8:37 PM DATABASE DESIGN ANALYST PULMONARY FUNCTION TESTS Joselin [place] 63 y.o. 03/20/2024 INTERPRETATION Please see technologist's comments mentioned in attached results report. SPIROMETRY: Pre bronchodilator FEV1 is 104 % predicted, FVC is 92 % predicted, FEV1/FVC is 0.88 Bronchodilator response: Not performed Inspection of the patient's flow-volume loops shows: Normal configuration of the inspiratory and expiratory limbs. LUNG VOLUMES: Lung volumes by body plethysmography: TLC is 76 % predicted, RV is 69 % predicted DLCO: Unadjusted for hemoglobin and carboxyhemoglobin DLCO is 73 % predicted Seble Mejia MD PFT ORDERABLES Final Result * (ABNORMAL) Immunoglobulin profile (02/19/2024 11:07 AM DATABASE DESIGN ANALYST) [facility] Immunoglobulin G 1,598 700 - 1,600 mg/dL Immunoglobulin A 313 70 - 400 mg/dL [facility] Immunoglobulin M 245(H) 40 - 230 mg/dL [facility] Blood 02/19/2024 11:0 7 AM DATABASE DESIGN ANALYST 02/19/2024 1:09 PM DATABASE DESIGN ANALYST Jeremi López MD PhD LAB BLOOD ORDERABLE S Final Result [facility] [facility] [place] [address] * CBC with auto differential (02/19/2024 11:07 AM DATABASE DESIGN ANALYST) [facility] White Blood Count 7.8 3.6 - 11.2 K/uL [facility] RBC 4.56 3.63 - 4.92 M/uL [facility] Hemoglobin 13.2 11.9 - 15.5 g/dL [facility] Hematocrit 39.1 36.1 - 44.3 % [facility] MCV 85.7 80.0 - 97.6 fL [facility] MCH 29.0 26.7 - 33.7 pg [facility] MCHC 33.8 32.7 - 35.5 g/dL [facility] RBC Dist Width 13.8 12.3 - 17.0 % [facility] Platelet Count 321 140 - 440 K/uL [facility] MPV 8.0 6.8 - 10.4 fL [facility] Neutrophils % 57.7 38.7 - 74.5 % [facility] Lymphocyte % 31.5 20.0 - 54.3 % [facility] Monocytes % 9.2 4.3 - 13.5 % [facility] Eosinophils % 1.0 0.0 - 6.0 % [facility] Basophil % 0.6 0.0 - 3.0 % [facility] Absolute Neutrophil 4.5 1.8 - 6.6 K/uL [facility] Absolute Lymphocyte 2.5 0.8 - 3.3 K/uL [facility] Absolute Monocyte 0.7 0.2 - 1.2 K/uL [facility] Absolute Eosinophil 0.1 0.0 - 0.5 K/uL [facility] Absolute Basophil 0.1 0.0 - 0.2 K/uL [facility] Nucleated RBC % 0.1 0.0 - 0.4 /100 WBC [facility] Blood 02/19/2024 11:0 7 AM DATABASE DESIGN ANALYST 02/19/2024 12:25 PM DATABASE DESIGN ANALYST Jeremi López MD PhD LAB BLOOD ORDERABLE S Final Result [facility] * (ABNORMAL) CRP (acute phase) (02/19/2024 11:07 AM DATABASE DESIGN ANALYST) C-Reactive Protein, Acute 5.8(H) <5.0 mg/L [facility] Blood 02/19/2024 11:0 7 AM DATABASE DESIGN ANALYST 02/19/2024 12:25 PM DATABASE DESIGN ANALYST Jeremi López MD PhD LAB BLOOD ORDERABLE S Final Result [facility] * (ABNORMAL) Comprehensive metabolic panel (02/19/2024 11:07 AM DATABASE DESIGN ANALYST) Pathologist [facility] Total Protein 7.7 6.1 - 8.4 g/dL [facility] Albumin 4.1 3.5 - 5.2 g/dL [facility] Calcium 9.1 8.6 - 10.3 mg/dL [facility] BUN 13 7 - 23 mg/dL [facility] Total Bilirubin 0.78 0.20 - 1.40 mg/dL [facility] Alk Phos, Total 77 35 - 129 IU/L [facility] AST (SGOT) 32 11 - 47 IU/L [facility] ALT (SGPT) 42 6 - 53 IU/L [facility] Creatinine 0.74 0.60 - 1.10 mg/dL [facility] Sodium 140 135 - 145 mmol/L [facility] Potassium 3.9 3.3 - 5.1 mmol/L [facility] Chloride 102 95 - 107 mmol/L [facility] CO2 Content 25 21 - 29 mmol/L [facility] Glucose 146(H) 64 - 99 mg/dL [facility] Comment: NONFASTING GLUCOSE RANGE = 64-199 mg/dL FASTING GLUCOSE 64 - 99 = NORMAL FASTING GLUCOSE 100 - 125 = IMPAIRED FASTING GLUCOSE FASTING GLUCOSE >=126 = PROVISIONAL DIAGNOSIS OF DIABETES eGFR >90.0 >60.0 mL/min/1.7 3 m2 [facility] Blood 02/19/2024 11:0 7 AM DATABASE DESIGN ANALYST 02/19/2024 12:25 PM DATABASE DESIGN ANALYST [facility] Clive López MD PhD LAB BLOOD ORDERABLE S Final Result [facility] * Hepatitis C antibody (01/23/2017 1:16 PM DATABASE DESIGN ANALYST) Pathologist [facility] Hep C Ab Nonreactive Nonreactive [facility] Comment: Interpretive Data Positive and greyzone results should be confirmed by a molecular method. If positive or greyzone, a second separately collected sample should be submitted for Hepatitis C Virus RNA. Detection and Quantitation by Real-Time Reverse Bone Density Technician-PCR.Current Interpretive data was last revised on 2016. Blood specimen (specimen) 01/23/2017 1:16 PM DATABASE DESIGN ANALYST 01/23/2017 4:49 PM DATABASE DESIGN ANALYST Narrative [facility] - 01/24/2017 9:19 AM DATABASE DESIGN ANALYST us Rocio Ellis MD LAB MICROBIOLOGY - GENERAL OR DERABLES Edited Result - Final [facility] Department [place] [address] * Screening Mammogram (10/19/2012 12:46 PM CDT) Anatomical Region Laterality Modality Breast N/A Mammography 10/19/2012 12:4 6 PM CDT Narrative 10/20/2012 1:30 PM CDT ANGELICA BYNUM M.D. FINAL REPORT ACC# Date Time Exam [id number] Oct 19, 2012 12:46:00 [facility] [id number] Screening Mamm Bilat Technologist(s): Dilia Gregg; ; EXAMINATION: Mammogram Findings: A Full-Field Digital Screening Mammogram was performed. Views obtained: bilateral craniocaudal; bilateral mediolateral oblique. Computer Aided Detection was performed with Remerge.3 version 9.3. The present examination has been compared to prior imaging studies performed at [facility] on 10/06/2011, 03/05/2010 and 06/23/2008. The breasts are almost entirely fat. There is no suspicious abnormality in either breast. IMPRESSION: Annual screening mammography is recommended. OVERALL FINAL ASSESSMENT: BI-RADS CATEGORY 1: Negative. Requested By: LISA WEINBERG M.D. Dictated By: ANGELICA BYNUM M.D. on Oct 20 2012 1:30P This document has been electronically signed by: ANGELICA BYNUM M.D. on Oct 20 2012 1:30P Procedure Note Provider, MD Issa - 06/10/2016 ANGELICA BYNUM M.D. FINAL REPORT ACC# Date Time Exam [id number] Oct 19, 2012 12:46:00 [facility] [id number] Screening Mamm Bilat Technologist(s): Dilia Gregg; ; EXAMINATION: Mammogram Findings: A Full-Field Digital Screening Mammogram was performed. Views obtained: bilateral craniocaudal; bilateral mediolateral oblique. Computer Aided Detection was performed with Remerge.3 version 9.3. The present examination has been compared to prior imaging studies performed at [facility] on 10/06/2011, 03/05/2010 and 06/23/2008. The breasts are almost entirely fat. There is no suspicious abnormality in either breast. IMPRESSION: Annual screening mammography is recommended. OVERALL FINAL ASSESSMENT: BI-RADS CATEGORY 1: Negative. Requested By: LISA WEINBERG M.D. Dictated By: ANGELICA BYNUM M.D. on Oct 20 2012 1:30P This document has been electronically signed by: ANGELICA BYNUM M.D. on Oct 20 2012 1:30P Historical Provider IM MAMMO PROCEDURES Chrissie l Result * Serum lipid panel (10/19/2012 12:05 PM CDT) Cholesterol 182 0 - 200 mg/dl HISTORICAL RESULTS Comment: Interpretive Data Desirable: <200 mg/dL Borderline high: 200-239 mg/dL High: >240 mg/dL Literature Reference: National Cholesterol Education Program (NCEP) Expert Panel on Detection, Evaluation, and Treatment of High Blood Cholesterol in Adults (Adult Treatment Panel III). Circulation 2004; 110:227. Current interpretive data was last revised on 2005. Triglycerides 123 0 - 150 mg/dl HISTORICAL RESULTS Comment: Interpretive Data Desirable: < 150 mg/dL Borderline High: 150 - 199 mg/dL High: > 200 mg/dL Literature Reference: See Cholesterol Current interpretive data was last revised on 06. HDL 87 40 - 199 mg/dl HISTORICAL RESULTS Comment: Interpretive Data Less than 40 mg/dL - low; A major risk factor for heart disease. Greater than or equal to 60 mg/dL - High; considered protective of heart disease. Literature Reference: See Cholesterol Current interpretive data was last revised on 2007. LDL 70 0 - 129 mg/dl HISTORICAL RESULTS Comment: Interpretive Data Optimal: < 100 mg/dL Near Optimal: 100 - 129 mg/dL Borderline High: 130 - 159 mg/dL High: > 160 mg/dL Literature Reference: See Cholesterol Current interpretive data was last revised on 06. Non-HDL cholesterol, calculated 95 mg/dl HISTORICAL RESULTS Comment: Interpretive Data When triglycerides are >200 mg/dL, non-HDL C is a secondary target of therapy, with a goal 30 mg/dL higher than the identified LDL-C goal. Reference: See Cholesterol Reference. Current interpretive data was last revised 2011. Serum 10/19/2012 12:0 5 PM CDT Michelle Wilkins MD LAB BLOOD ORDERABLES Final Resul t HISTORICAL RESULTS from Last 3 Months or Most Recently Relevant to Health [place] [address] T MEDICARE [employer] [place] [address] MEDICARE [facility] [place] [address] [id number] [place] [address] [employer] [place] [address] Care Teams [employer] S[employer] Press Tender Relationship Specialty Start Date End Date Mercedes Collins MD [address] [address] PCP - General 06/25/17 Andrzej Grimes, OD [address] [place] [address] Referring Physician Ophthalmology 04/18/20 Ramsey Barbosa MD [address] [facility] [place] [address] Die Maintenance Transplant 05/30/21 Juana Leal RN [id number] [address] Heart Failure Coordinator [employer] 05/30/21
--- OUTSIDE RECORDS SUMMARY | 2024-04-24 19:39 | XMS_ITS | Clinical Summary ---
Author Organization [facility] Address [address] [place] [address] Care Team Providers Care Signals Intelligence Superintendent Name Role Phone Mercedes Collins MD Primary Care Provider + Andrzej Grimes OD Unavailable [phone] Ramsey Barbosa MD Unavailable [phone] Juana Leal RN Unavailable Allergies Active Allergy Reactions Criticality Noted Date Comments Ciprofloxacin Rash,Unknown,Diarrh ea,Urticaria High 09/10/2009 Leflunomide Unknown High 12/11/2015 Levofloxacin Other (See comments),Unknown Low 02/19/2009 Ruptured ligaments Lisinopril Other (See comments) Low 04/14/2024 Unsure of reaction, states was taken off for either diarrhea or swelling Simvastatin Other (See comments) Low 01/25/2016 Bone pain Bone pain Seeodnw-Fne-Dyc Reductase Inhibitors Muscle pain,Unknown Medium 05/18/2014 Medications [...] HCV Assessment & Plan (04/19/2024 1:31 PM MONORAIL CHARGER OPERATOR): No active inflammation, call if experiencing flare Assessment & Plan (04/17/2023 10:29 AM MONORAIL CHARGER OPERATOR): Quiet both eyes (OU), RTC if experiencing flare Assessment & Plan (04/18/2022 12:13 PM MONORAIL CHARGER OPERATOR): No sign of inflammation or sequelae from uveitis PLAN observe Diabetes mellitus type 2 without retinopathy 04/2022 Assessment & Plan (04/19/2024 1:31 PM MONORAIL CHARGER OPERATOR): Pt ed. Stressed BG control (HbA1C<7) to reduce the risk for diabetic ocular complications. Lab Results Component Value Date HGBA1C 5.8 (H) 06/01/2015 Assessment & Plan (04/17/2023 10:29 AM MONORAIL CHARGER OPERATOR): No retinopathy both eyes (OU). Pt ed. Stressed BG control (HbA1C<7) to reduce the risk for diabetic ocular complications. Lab Results Component Value Date HGBA1C 5.8 (H) 06/01/2015 Osteopenia 02/22/2022 Esophageal reflux 12/10/2021 Age-related cataract of both eyes 04/15/2021 Assessment & Plan (04/19/2024 1:31 PM MONORAIL CHARGER OPERATOR): Not v/s, monitor Assessment & Plan (05/06/2023 9:14 AM CDT): Stable best-corrected visual acuity (BVA), monitor Release updated glasses Rx Assessment & Plan (04/15/2021 11:03 AM MONORAIL CHARGER OPERATOR): She is not bothered, observe Right rotator cuff tear arthropathy 11/24/2020 Controlled substance agreement signed 11/20/2020 Current chronic use of systemic steroids 021 Chronic diastolic heart failure 09/02/2020 Overview (05/30/2021): TTE 07/18/20 with normal LVEF, evidence of diastolic dysfunction, no valvular abnormalities [facility] 2013 without significant disease Negative HANNA November 2020 proBNP = 10 in August 2020 History of uveitis 09/02/2020 Assessment & Plan (04/15/2021 11:02 AM MONORAIL CHARGER OPERATOR): She has no active inflammation today. Follow [...] history of scleroderma 09/03/2020 11/24/2020 Tachycardia, paroxysmal 05/16/2020 01/0 08/2022 Overview (05/30/2021): 07/2020- Extended Holter with an avg HR 91 bpm, rare PVCs and PACs Encounters Date Type Department Care Team Description 04/20/2024 Orders Only [facility] [address] [place] [address] Caryn Ruiz, ABHILASH 04/19/2024 10:45 AM MONORAIL CHARGER OPERATOR Office Visit [facility] Ophthalmology [address] 6th [address], [address] [place] [phone] Jennifer Mar, OD Bilateral chronic anterior uveitis (Primary Dx); Age-related cataract of both eyes; Diabetes mellitus type 2 without retinopathy (HCC) 04/18/2024 10:38 AM MONORAIL CHARGER OPERATOR - 04/18/2024 11:59 PM MONORAIL CHARGER OPERATOR Hospital Encounter [facility] [address] [place] [address] Chronic pain of right ankle Discharge Disposition: Discharge to home or self care 04/18/2024 10:37 AM MONORAIL CHARGER OPERATOR - 04/18/2024 11:59 PM MONORAIL CHARGER OPERATOR Hospital Encounter [facility] [address] [place] [id number] Right foot pain Discharge Disposition: Discharge to home or self care 04/18/2024 10:20 AM MONORAIL CHARGER OPERATOR - 04/18/2024 11:59 PM MONORAIL CHARGER OPERATOR Hospital Encounter [facility] [address] [place] [address] Left foot pain Discharge Disposition: Discharge to home or self care 04/18/2024 10:15 AM MONORAIL CHARGER OPERATOR - 04/18/2024 11:59 PM MONORAIL CHARGER OPERATOR Hospital Encounter [facility] [address] [place] [id number] Left ankle pain, unspecified chronicity Discharge Disposition: Discharge to home or self care 04/18/2024 10:00 AM MONORAIL CHARGER OPERATOR Office Visit [facility] Orthopaedic Surgery [address] [place] [address] 2nd [address] [place] [address] Joy Dang NP Osteoarthritis of left ankle and foot (Primary Dx); Left foot pain; Left ankle pain, unspecified chronicity; Follow-up exam; Right foot pain; Chronic pain of right ankle; Osteoarthritis of right ankle and foot; Pes planovalgus; Crossover toe deformity of right foot 04/14/2024 5:19 PM MONORAIL CHARGER OPERATOR - 04/14/2024 10:59 PM MONORAIL CHARGER OPERATOR Emergency [facility] [address] [place] [address] Garcia Louis MD PhD Abdominal pain (Primary Dx); Bloating Discharge Disposition: Discharge to home or self care 04/14/2024 1:30 PM MONORAIL CHARGER OPERATOR Infusion [facility] [address] [place] [phone] High risk medication use (Primary Dx); Rheumatoid arthritis involving multiple sites with positive rheumatoid factor (HCC) 04/13/2024 11:45 AM MONORAIL CHARGER OPERATOR Office Visit [facility] [place] [address] [place] [address] Seble Mejia MD Abnormal CT of the chest (Primary Dx); Chronic obstructive pulmonary disease, unspecified COPD type (HCC) 04/12/2024 Telephone [facility] [address] [place] [phone] Gorge Cook, ABHILASH 03/24/2024 Orders Only [facility] [address] [place] [phone] Pancho Thapa RN 03/17/2024 2:54 PM MONORAIL CHARGER OPERATOR - 03/17/2024 11:59 PM MONORAIL CHARGER OPERATOR Hospital Encounter [facility] Respiratory Therapy [address] [place], [place] [phone] Abnormal PFT; Interstitial lung disease (HCC) Discharge Disposition: Discharge to home or self care 03/03/2024 9:30 AM MONORAIL CHARGER OPERATOR Infusion [facility] Infusion Therapy [address] 5th [place] [address] [place] [phone] Rheumatoid arthritis involving multiple sites with positive rheumatoid factor (HCC) (Primary Dx) 02/22/2024 Telephone [facility] Rheumatology [address] [place] [address] Bonnie Neri RMA Prior Auth (Orencia (abatecept)) 02/19/2024 11:07 AM MONORAIL CHARGER OPERATOR - 02/19/2024 11:59 PM MONORAIL CHARGER OPERATOR Hospital Encounter [facility] [address] [place] [address] Rheumatoid arthritis involving multiple sites with positive rheumatoid factor (HCC) Discharge Disposition: Discharge to home or self care 02/19/2024 10:55 AM MONORAIL CHARGER OPERATOR Lab [facility] Endocrinology Metabolism and Lipid [address] 5th [place] [address] [place] [phone] Rheumatoid arthritis involving multiple sites with positive rheumatoid factor (HCC) 02/19/2024 9:30 AM MONORAIL CHARGER OPERATOR Office Visit [facility] Rheumatology [address] 5th [place] [address] [place] [address] Jeremi López MD PhD Rheumatoid arthritis involving multiple sites with positive rheumatoid factor (HCC) (Primary Dx); Current chronic use of systemic steroids; Long-term use of infliximab; High risk medication use from Last 3 Months Surgical History Surgery Date Site/Laterality Comments SD LIG/TRNSXJ FLP TUBE ABDL/ VAG APPR UNI/BI Tubal Ligation - (Added by TW Conv) ARTHRODESIS Arthrodesis Cervical - (Added by TW Conv) SD CHOLECYSTECTOMY Cholecystectomy - (Added by TW Conv) SECTION 02/17/1996 - 02/15/1997 BACK SURGERY 02/16/2006 - 02/15/2007 TEMPOROMANDIBULAR JOINT SURGERY 02/16/2009 - 02/15/2010 FLUORO GUIDED INJECTION SHOULDER RIGHT 10/04/2020 Right Medical History Medical History Date Comments Personal history of other en docrine, nutritional and metabolic disease History of Graves' d isease - (Added by TW Conv) Personal history of other di seases of the respiratory system History of restrictive lung disease - (Added by TW Conv) Personal history of other di seases of the circulatory system History of hypertension - (A dded by TW Conv) Asthma Seasonal allergies Autoimmune disease Cataracts, bilateral Heart disease Diabetes (HCC) HTN (hypertension) Pulmonary HTN (HCC) Pulmonary embolism (HCC) Thyroid disease Graves disease Peptic ulcer GERD (gastroesophageal reflux disease) Uveitis Family History Medical History Relation Name Comments Arthritis Brother 1 Rheum arthritis Brother 1 Family histo ry of rheumatoid arthritis - (Added by TW Conv) Arthritis Brother 2 Gout Brother 2 Family history of gout - (Added by TW Conv) Arthritis Brother 3 Family history of arthritis - (Added by TW Conv) Arthritis Brother 4 Arthritis Brother 5 Arthritis Brother 6 Arthritis Brother 7 Rheum arthritis Father Family histo ry of rheumatoid arthritis - (Added by TW Conv) Osteoarthritis Mother Family histor y of osteoarthritis - (Added by TW Conv) Rheum arthritis Mother Family histo ry of rheumatoid arthritis - (Added by TW Conv) Stroke Other 1 Stroke Syndrome - (Added by TW Conv) Diabetes Other 2 Diabetes Mellit us - (Added by TW Conv) Hypertension Other 3 Hypertension - (Added by TW Conv) Graves' disease Other 4 Graves' Dise ase - (Added by TW Conv) Heart disease Other 5 Heart Disease - (Added by TW Conv) Rheum arthritis Sister 1 Family histo ry of rheumatoid arthritis - (Added by TW Conv) Rheum arthritis Sister 2 Relation Name Status Comments Brother 1 Alive Brother 2 Brother 3 Alive Brother 4 Alive Brother 5 Alive Brother 6 Alive Brother 7 Alive Father Mother Other 1 Other 2 Other 3 Other 4 Other 5 Sister 1 Sister 2 Alive Social History Tobacco Use Types Packs/Day Years [...] on file Legal Sex Female 7:32 PM MONORAIL CHARGER OPERATOR Gender Identity Not on file Sexual Orientation Not on file Obstetrics History Last Filed Vital Signs Vital Sign Reading Time Taken Comments Blood Pressure 132/97 04/14/2024 8:04 PM MONORAIL CHARGER OPERATOR Pulse 80 04/14/2024 8:04 PM MONORAIL CHARGER OPERATOR Temperature 36.4 C (97.5 F) 04/14/2024 3:02 PM MONORAIL CHARGER OPERATOR Respiratory Rate 18 04/14/2024 8:04 PM MONORAIL CHARGER OPERATOR Oxygen Saturation 99% 04/14/2024 8:04 PM MONORAIL CHARGER OPERATOR Inhaled Oxygen Concentration - - Weight 106.6 kg (235 lb) 04/18/2024 10:20 AM MONORAIL CHARGER OPERATOR Height 176.5 cm (5' 9.5 ) 04/18/2024 10:20 AM CS T Body Mass Index 34.21 04/18/2024 10:20 AM MONORAIL CHARGER OPERATOR Plan of Treatment Health Maintenance Due Date Last Done Comments Albumin Creatinine Ratio, Urine 1961 Cervical Cancer Screening 1961 Colon Cancer Screening-Colonoscopy 1961 Depression Screening 1961 Foot Exam 1961 Hepatitis B Screening 09/15/1979 Regular Well Visit/Exam 18-64 09/15/1979 Zoster Vaccine (1 of 2) 1980 DTaP/Tdap/Td Vaccine (1 - Tdap) 2013 4 Covid-19 Vaccine (3 - Pfizer risk series) 12/12/2020 11/14/2020, 10/24/2020 Hemoglobin A1C 01/20/2023 07/21/2022, 06/16, 02/24/2020, Additional history exists Influenza Vaccine (#1) 2023 4, 03/04/2013, 12/30/2011, Additional history exists Breast Cancer Screening-Mammogram 10/12/2024 10/13/2023, 10/13/2023, 01/21/2022, Additional history exists Lipid Panel 10/16/2024 10/17/2023, 06/0 06/2022, 12/15/2020, Additional history exists eGFR 04/14/2025 04/14/2024, 01/0 04/2024, 10/23/2023, Additional history exists Dilated Eye Exam 04/19/2025 04/19/2024, 02/2023, 04/18/2022, Additional history exists Hepatitis C Screening Completed 01/23/2017 Pneumococcal vaccine <65 Completed 06/27/2022, 12/17 Procedures Procedure Name Priority Date/Time Associated Diagnosis Comments XR FOOT RIGHT 3 OR MORE VIEWS Schedule Routine, Read Routine (OP Routine) 04/18/2024 10:48 AM MONORAIL CHARGER OPERATOR Right foot pain XR FOOT LEFT 3 OR MORE VIEWS Schedule Routine, Read Routine (OP Routine) 04/18/2024 10:48 AM MONORAIL CHARGER OPERATOR Left foot pain XR ANKLE LEFT 3 OR MORE VIEWS Schedule Routine, Read Routine (OP Routine) 04/18/2024 10:48 AM MONORAIL CHARGER OPERATOR Left ankle pain, unspecified chronicity XR ANKLE RIGHT 3 OR MORE VIEWS Schedule Routine, Read Routine (OP Routine) 04/18/2024 10:48 AM MONORAIL CHARGER OPERATOR Chronic pain of right ankle URINALYSIS AND REFLEX TO MICROSCOPIC STAT 04/14/2024 5:50 PM MONORAIL CHARGER OPERATOR POCT GLUCOSE DEVICE Routine 04/14/2024 5 :39 PM MONORAIL CHARGER OPERATOR TROPONIN I HIGH-SENSITIVITY 2-HOUR Timed 04/14/2024 5:31 PM MONORAIL CHARGER OPERATOR ECG 12-LEAD STAT 04/14/2024 3:38 PM MONORAIL CHARGER OPERATOR EGFR STAT 04/14/2024 3:25 PM MONORAIL CHARGER OPERATOR DIFFERENTIAL AUTO STAT 04/14/2024 3:2 5 PM MONORAIL CHARGER OPERATOR TROPONIN I HIGH-SENSITIVITY SERIES (BASELINE, 2HR, 4HR, 6HR) STAT 04/14/2024 3:25 PM MONORAIL CHARGER OPERATOR LIPASE STAT 04/14/2024 3:25 PM MONORAIL CHARGER OPERATOR COMPREHENSIVE METABOLIC PANEL STAT 04/14/2024 3:25 PM MONORAIL CHARGER OPERATOR CBC WITH AUTO DIFFERENTIAL STAT 04/14/2024 3:25 PM MONORAIL CHARGER OPERATOR POCT GLUCOSE DEVICE Routine 04/14/2024 3 :16 PM MONORAIL CHARGER OPERATOR PULMONARY FUNCTION TEST (PFT) Routine 03/17/2024 3:55 PM MONORAIL CHARGER OPERATOR Abnormal PFT Interstitial lung disease (HCC) IMMUNOGLOBULIN PROFILE Routine 02/19/2024 11:07 AM MONORAIL CHARGER OPERATOR Rheumatoid arthritis involving multiple sites with positive rheumatoid factor (HCC) CRP (ACUTE PHASE) Routine 02/19/2024 11: 07 AM MONORAIL CHARGER OPERATOR Rheumatoid arthritis involving multiple sites with positive rheumatoid factor (HCC) COMPREHENSIVE METABOLIC PANEL Routine 02/19/2024 11:07 AM MONORAIL CHARGER OPERATOR Rheumatoid arthritis involving multiple sites with positive rheumatoid factor (HCC) CBC WITH AUTO DIFFERENTIAL Routine 02/19/2024 11:07 AM MONORAIL CHARGER OPERATOR Rheumatoid arthritis involving multiple sites with positive rheumatoid factor (HCC) HEPATITIS C ANTIBODY Routine Gen Lab 01/23/2017 1:16 PM MONORAIL CHARGER OPERATOR SCREENING MAMMOGRAM Routine 10/19/2012 1 2:46 PM CDT SERUM LIPID PANEL Routine 10/19/2012 12: 05 PM CDT from Last 3 Months or Most Recently Relevant to Health Maintenance Results * XR Foot Right 3+ View (04/18/2024 10:48 AM MONORAIL CHARGER OPERATOR) Anatomical Region Laterality Modality Lower Extremities, Foot Right Computed Radiography 04/18/2024 3:07 PM MONORAIL CHARGER OPERATOR Impressions 04/18/2024 6:19 PM MONORAIL CHARGER OPERATOR 1. 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 2. Mild right mid and hindfoot osteoarthritis. Dictated by: Matthew Chapin MD PHD The radiology attending physician has personally reviewed this study, and had reviewed and/or edited this written report and agrees with it. Electronically signed by: Kevin Hermosillo MD Narrative 04/18/2024 6:19 PM MONORAIL CHARGER OPERATOR EXAMINATION: 1. XR ANKLE LEFT 3+ VIEWS [...] Foot Left 3+ View (04/18/2024 10:48 AM MONORAIL CHARGER OPERATOR) Anatomical Region Laterality Modality Lower Extremities, Foot Left Computed Radiography 04/18/2024 3:07 PM MONORAIL CHARGER OPERATOR Impressions 04/18/2024 6:19 PM MONORAIL CHARGER OPERATOR 1. 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 2. Mild right mid and hindfoot osteoarthritis. Dictated by: Matthew Chapin MD PHD The radiology attending physician has personally reviewed this study, and had reviewed and/or edited this written report and agrees with it. Electronically signed by: Kevin Hermosillo MD Narrative 04/18/2024 6:19 PM MONORAIL CHARGER OPERATOR EXAMINATION: 1. XR ANKLE LEFT 3+ VIEWS [...] it. Electronically signed by: Kevin Hermosillo MD [facility] DEEP TISSUE MASSAGE THERAPIST IM XR PROCEDURES Final Result * XR Ankle Left 3+ View (04/18/2024 10:48 AM MONORAIL CHARGER OPERATOR) Anatomical Region Laterality Modality Lower Extremities, Ankle Left Compute d Radiography 04/18/2024 3:07 PM MONORAIL CHARGER OPERATOR Impressions 04/18/2024 6:19 PM MONORAIL CHARGER OPERATOR 1. 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 2. Mild right mid and hindfoot osteoarthritis. Dictated by: Matthew Chapin MD PHD The radiology attending physician has personally reviewed this study, and had reviewed and/or edited this written report and agrees with it. Electronically signed by: Kevin Hermosillo MD Narrative 04/18/2024 6:19 PM MONORAIL CHARGER OPERATOR EXAMINATION: 1. XR ANKLE LEFT 3+ VIEWS [...] signed by: Kevin Hermosillo MD [facility] DEEP TISSUE MASSAGE THERAPIST IMG XR PROCEDURES Final Result * XR Ankle Right 3+ View (04/18/2024 10:48 AM MONORAIL CHARGER OPERATOR) Anatomical Region Laterality Modality Lower Extremities, Ankle Right Compute d Radiography 04/18/2024 3:07 PM MONORAIL CHARGER OPERATOR Impressions 04/18/2024 6:19 PM MONORAIL CHARGER OPERATOR 1. 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 2. Mild right mid and hindfoot osteoarthritis. Dictated by: Matthew Chapin MD PHD The radiology attending physician has personally reviewed this study, and had reviewed and/or edited this written report and agrees with it. Electronically signed by: Kevin Hermosillo MD Narrative 04/18/2024 6:19 PM MONORAIL CHARGER OPERATOR EXAMINATION: 1. XR ANKLE LEFT 3+ VIEWS [...] NP IMG XR PROCEDURES Final Result * Urinalysis reflex to microscopic (04/14/2024 5:50 PM MONORAIL CHARGER OPERATOR) Color, ur Straw Yellow Clarity, ur Clear Clear [facility] Specific gravity, ur 1.006 1.003 - 1.030 [facility] pH, urine 7.0 [facility] Comment: Interpretive Data U rine pH is affected by diet, medications, systemic acid-base disturbances, and renal tubular function. pH may affect urinary stone formation. For example, urine pH below 6.0 may help reduce the tendency for calcium phosphate stones and pH greater than 6.0 may reduce the tendency for uric acid stone formation. Source: [place] [employer] Current Interpretive Data was last revised on 2017 Protein, ur ql Negative Negative [facility] Glucose, ur ql Negative Negative [facility] Ketones, ur Negative Negative [facility] Bilirubin, ur Negative Negative [facility] Blood, ur Negative Negative [facility] Urobilinogen, ur <2.0 <2.0 mg/dL [facility] Nitrite, ur Negative Negative [facility] Leukocyte esterase, ur Negative Negative [facility] UA reflex comment Reflex conditions for microscopic UA not met. [facility] Urine 04/14/2024 5:50 PM MONORAIL CHARGER OPERATOR 04/14/2024 5:58 PM MONORAIL CHARGER OPERATOR us Garcia Louis MD PhD LAB URINE ORDERABLE S Final Result Performing Organization Address City/[facility]/ZIP Co de Phone Number [facility] [place] [address] * POCT glucose (04/14/2024 5:39 PM MONORAIL CHARGER OPERATOR) Pathologist [facility] Glucose, POC 123 70 - 199 mg/dL Blood 04/14/2024 5:39 PM MONORAIL CHARGER OPERATOR 04/14/2024 5:39 PM MONORAIL CHARGER OPERATOR Notinfile Unknown LAB POCT ORDERABLES - DEVICE F inal Result Performing Organization Address [facility] Co de Phone Number [facility] [place] [address] * Troponin I high-sensitivity 2-hour (04/14/2024 5:31 PM MONORAIL CHARGER OPERATOR) [facility] Trop I hs <4 <=17 ng/L Comment: Interpretive Data For further hscTnI resources including the diagnostic algorithm and an aid in interpretation, copy and paste this link: https://bjhlab.testcatalog.org/show/[email or web address] Current Interpretive Data last revised 2019. Trop I hs delta 0 ng/L [facility] Trop I hs interp Insignificant [facility] Blood 04/14/2024 5:31 PM MONORAIL CHARGER OPERATOR 04/14/2024 5:36 PM MONORAIL CHARGER OPERATOR us Angel Davison MD LAB BLOOD ORDERABLES F inal Result Performing Organization Address City/[facility]/ZIP Co de Phone Number [facility] [place] [address] * ECG 12-LEAD (04/14/2024 3:38 PM MONORAIL CHARGER OPERATOR) Narrative [facility] - 04/14/2024 3:38 PM MONORAIL CHARGER OPERATOR Gabriel Gunn MD 04/14/2024 3:39 PM ECG [...] MD PhD ECG ORDERABLES Fin al Result [facility] * Troponin I high-sensitivity series (baseline, 2hr, 4hr, 6hr) (04/14/2024 3:25 PM MONORAIL CHARGER OPERATOR) [facility] Trop I hs <4 <=17 ng/L Comment: Interpretive Data For further [facility] resources including the diagnostic algorithm and an aid in interpretation, copy and paste this link: https://bjhlab.testcatalog.org/show/[email or web address] Current Interpretive Data last revised 2019. Blood 04/14/2024 3:25 PM MONORAIL CHARGER OPERATOR 04/14/2024 3:50 PM MONORAIL CHARGER OPERATOR us Garcia Louis MD PhD LAB BLOOD ORDERABLE S Final Result [facility] [place] [address] * eGFR (04/14/2024 3:25 PM MONORAIL CHARGER OPERATOR) Pathologist [facility] eGFR 89 >=60 mL/min/1. 73 m2 Comment: [...] of Race in Diagnosing Kidney Disease, JASN 202). The CKD-EPI equation should not be used for patients with unstable renal function and has not been validated in children and those over 70. Current interpretive data was last reviewed 2020. Blood 04/14/2024 3:25 PM MONORAIL CHARGER OPERATOR 04/14/2024 3:50 PM MONORAIL CHARGER OPERATOR us Garcia Louis MD PhD LAB BLOOD ORDERABLE S Final Result [facility] [place] [address] * Differential, auto (04/14/2024 3:25 PM MONORAIL CHARGER OPERATOR) Pathologist [facility] Neutrophil abs 6.3 1.5 - 6.5 K/cumm Imm gran abs 0.1 0.0 - 0.1 K/cumm [facility] Lymphocyte abs 2.2 0.8 - 3.3 K/cumm [facility] Monocyte abs 0.5 0.2 - 0.8 K/cumm [facility] Eosinophil abs 0.1 0.0 - 0.5 K/cumm [facility] Basophil abs 0.0 0.0 - 0.1 K/cumm [facility] Neutrophil pct 68.8 % [facility] Comment: Interpretive Data Percent cell count reference ranges are not reported, since discordance with absolute values may lead to misinterpretation of CBC data. Current Interpretive Data was last revised on 2017. Imm gran pct 0.7 % [facility] Comment: Interpretive Data Percent cell count reference ranges are not reported, since discordance with absolute values may lead to misinterpretation of CBC data. Current Interpretive Data was last revised on 2017. Lymphocyte pct 23.7 % [facility] Comment: Interpretive Data Percent cell count reference ranges are not reported, since discordance with absolute values may lead to misinterpretation of CBC data. Current Interpretive Data was last revised on 2017. Monocyte pct 5.3 % [facility] Comment: Interpretive Data Percent cell count reference ranges are not reported, since discordance with absolute values may lead to misinterpretation of CBC data. Current Interpretive Data was last revised on 2017. Eosinophil pct 1.1 % [facility] Comment: Interpretive Data Percent cell count reference ranges are not reported, since discordance with absolute values may lead to misinterpretation of CBC data. Current Interpretive Data was last revised on 2017. Basophil pct 0.4 % [facility] Comment: Interpretive Data Percent cell count reference ranges are not reported, since discordance with absolute values may lead to misinterpretation of CBC data. Current Interpretive Data was last revised on 2017. Blood 04/14/2024 3:25 PM MONORAIL CHARGER OPERATOR 04/14/2024 3:50 PM MONORAIL CHARGER OPERATOR us Garcia Louis MD PhD LAB BLOOD ORDERABLE S Final Result [facility] [place] [address] * CBC with auto differential (04/14/2024 3:25 PM MONORAIL CHARGER OPERATOR) WBC 9.1 3.8 - 9.9 K/cumm Hgb 12.9 11.9 - 15.5 g/dL [facility] Hct 39.0 35.6 - 45.5 % [facility] Plt 313 150 - 400 K/cumm [facility] MPV 9.5 9.1 - 12.3 fL [facility] RBC 4.55 3.90 - 5.20 M/cumm [facility] MCV 85.7 81.3 - 96.4 fL [facility] MCH 28.4 27.1 - 33.3 pg [facility] MCHC 33.1 32.3 - 35.7 g/dL [facility] RDW CV 12.6 11.1 - 14.9 % [facility] RDW SD 39.2 35.7 - 48.1 fL [facility] NRBC abs 0.00 0.00 - 0.01 K/cumm [facility] Blood Venous blood specimen / Unknown 04/14/2024 3:25 PM MONORAIL CHARGER OPERATOR 04/14/2024 3:50 PM MONORAIL CHARGER OPERATOR Garcia Louis MD PhD LAB BLOOD ORDERABLE S Final Result Performing Organization Address City/[facility]/ZIP Co de Phone Number [facility] [place] [place] [address] * Lipase (04/14/2024 3:25 PM MONORAIL CHARGER OPERATOR) [facility] Lipase 22 10 - 99 Units/L Blood Venous blood specimen / Unknown 04/14/2024 3:25 PM MONORAIL CHARGER OPERATOR 04/14/2024 3:50 PM MONORAIL CHARGER OPERATOR Garcia Louis MD PhD LAB BLOOD ORDERABLE S Final Result Performing Organization Address City/[facility]/ZIP Co de Phone Number [facility] [place] [address] * Comprehensive metabolic panel (04/14/2024 3:25 PM MONORAIL CHARGER OPERATOR) [facility] Sodium 137 135 - 145 mmol/L Potassium, pl 3.9 3.3 - 4.9 mmol/L [facility] Chloride 100 97 - 110 mmol/L [facility] CO2 25 22 - 32 mmol/L [facility] Anion gap 12 2 - 15 mmol/L [facility] BUN 10 6 - 25 mg/dL [facility] Creatinine 0.76 0.60 - 1.10 mg/dL [facility] Glucose 181 70 - 199 mg/dL [facility] Comment: Interpretive Data Fasting glucose >/= 126 [...] 2022. Calcium 9.2 8.5 - 10.3 mg/dL [facility] Bilirubin, total 0.6 0.1 - 1.2 mg/dL [facility] Protein, pl 7.5 6.5 - 8.5 g/dL [facility] Albumin 3.8 3.5 - 5.0 g/dL [facility] Alk phos 74 40 - 130 Units/L [facility] ALT 34 7 - 45 Units/L [facility] AST 28 10 - 45 Units/L [facility] Blood 04/14/2024 3:25 PM MONORAIL CHARGER OPERATOR 04/14/2024 3:50 PM MONORAIL CHARGER OPERATOR us Garcia Louis MD PhD LAB BLOOD ORDERABLE S Final Result Performing Organization Address City/[facility]/ZIP Co de Phone Number [facility] Department [place] [address] * POCT glucose (04/14/2024 3:16 PM MONORAIL CHARGER OPERATOR) Glucose, POC 176 70 - 199 mg/dL Blood 04/14/2024 3:16 PM MONORAIL CHARGER OPERATOR 04/14/2024 3:16 PM MONORAIL CHARGER OPERATOR us Notinfile Unknown LAB POCT ORDERABLES - DEVICE F inal Result Performing Organization Address City/[facility]/ZIP Co de Phone Number [facility] [place] [address] * (ABNORMAL) Pulmonary Function Test - (03/17/2024 3:55 PM MONORAIL CHARGER OPERATOR) FVC PRE 2.88 2.29 - 4.02 L [facility] FEV1 PRE 2.54 1.77 - 3.11 L [facility] [id number] 88.21 66.97 - 89.03 % [facility] [id number]% PRE 3.67 0.89 - 3.92 L/s [facility] PEF PRE 6.81 5.19 - 8.15 L/s [facility] DLCOc SB 18.54(A) 19.82 - 31.29 ml/(min*mm Hg) [facility] DLCO/VA PRE 4.85 3.17 - 5.67 ml/(min*mm Hg*L) [facility] VA 3.82(A) 5.63 - 5.63 L [facility] TLC PRE 4.38(A) 4.79 - 6.76 L [facility] VC PRE 2.88 2.71 - 4.09 L [facility] IC PRE 2.45(A) 2.58 - 2.58 L [facility] FRC PL PRE 1.94(A) 2.17 - 3.81 L [facility] ERV PRE 0.43(A) 0.82 - 0.82 L [facility] RV PRE 1.50(A) 1.59 - 2.74 L [facility] VTG 2.07 L [facility] RAW PRE 3.05(A) 3.06 - 3.06 cmH2O*s/L [facility] Anatomical Region Laterality Modality PFT 03/17/2024 3:06 PM MONORAIL CHARGER OPERATOR Impressions 03/20/2024 8:37 PM MONORAIL CHARGER OPERATOR 1. [id number] restrictive ventilatory limitation 2. Mild diffusion impairment 3. Ambulatory oximetry was performed and at this level of activity the patient did not require supplemental oxygen Electronically signed by Tristian Carrillo MD Pulmonary & Critical Care Narrative 03/20/2024 8:37 PM MONORAIL CHARGER OPERATOR PULMONARY FUNCTION TESTS Joselin Canada 63 y.o. [...] * (ABNORMAL) Immunoglobulin profile (02/19/2024 11:07 AM MONORAIL CHARGER OPERATOR) [facility] Immunoglobulin G 1,598 700 - 1,600 mg/dL Immunoglobulin A 313 70 - 400 mg/dL [facility] Immunoglobulin M 245(H) 40 - 230 mg/dL [facility] Blood 02/19/2024 11:0 7 AM MONORAIL CHARGER OPERATOR 02/19/2024 1:09 PM MONORAIL CHARGER OPERATOR Jeermi López MD PhD LAB BLOOD ORDERABLE S Final Result [facility] [place] [address] * CBC with auto differential (02/19/2024 11:07 AM MONORAIL CHARGER OPERATOR) [facility] White Blood Count 7.8 3.6 - [...] - [facility] Blood 02/19/2024 11:0 7 AM MONORAIL CHARGER OPERATOR 02/19/2024 12:25 PM MONORAIL CHARGER OPERATOR Judobabyedwin López MD PhD LAB BLOOD ORDERABLE S Final Result Performing Organization Address City/[facility] Co de Phone Number [facility] * (ABNORMAL) CRP (acute phase) (02/19/2024 11:07 AM MONORAIL CHARGER OPERATOR) Pathologist [facility] [place] C-Reactive Protein, Acute 5.8(H) <5.0 mg/L [facility] Blood 02/19/2024 11:0 7 AM MONORAIL CHARGER OPERATOR 02/19/2024 12:25 PM MONORAIL CHARGER OPERATOR Jeremi López MD PhD LAB BLOOD ORDERABLE S Final Result [facility] * (ABNORMAL) Comprehensive metabolic panel (02/19/2024 11:07 AM MONORAIL CHARGER OPERATOR) Pathologist [facility] Total Protein 7.7 6.1 - 8.4 g/dL [...] - [facility] Blood 02/19/2024 11:0 7 AM MONORAIL CHARGER OPERATOR 02/19/2024 12:25 PM MONORAIL CHARGER OPERATOR [facility] Clive López MD PhD LAB BLOOD ORDERABLE S Final Result [facility] * Hepatitis C antibody (01/23/2017 1:16 PM MONORAIL CHARGER OPERATOR) Pathologist [facility] Hep C Ab Nonreactive Nonreactive [facility] Comment: Interpretive Data Positive and greyzone results should be confirmed by a molecular method. If positive or greyzone, a second separately collected sample should be submitted for Hepatitis C Virus RNA. Detection and Quantitation by Real-Time [employer] Risk [employer] Manager-PCR.Current Interpretive data was last revised on 2016. Blood specimen (specimen) 01/23/2017 1:16 PM MONORAIL CHARGER OPERATOR 01/23/2017 4:49 PM MONORAIL CHARGER OPERATOR Narrative [facility] - 01/24/2017 9:19 AM MONORAIL CHARGER OPERATOR Rocio Ellis MD LAB MICROBIOLOGY - GENERAL OR DERABLES Edited Result - Final [facility] [place] [address] * Screening Mammogram (10/19/2012 12:46 PM CDT) Anatomical Region Laterality Modality Breast N/A Mammography 10/19/2012 12:4 6 PM CDT Narrative 10/20/2012 1:30 PM CDT ANGELICA BYNUM M.D. FINAL REPORT ACC# Date Time Exam [id number] Oct 19, 2012 12:46:00 [facility] [place] [address] Screening Mamm Bilat Technologist(s): Dilia Gregg; ; EXAMINATION: Mammogram Findings: A Full-Field Digital Screening Mammogram was performed. Views obtained: bilateral craniocaudal; bilateral mediolateral oblique. Computer Aided Detection was performed with OpenSpan.3 version 9.3. The present examination has been compared to prior imaging studies performed at [facility] on 10/06/2011, 03/05/2010 and 06/23/2008. The breasts [...] M.D. FINAL REPORT ACC# Date Time Exam [id number] Oct 19, 2012 12:46:00 [facility] [place] [address] Screening Mamm Bilat Technologist(s): Dilia Gregg; ; EXAMINATION: Mammogram Findings: A Full-Field Digital Screening Mammogram was performed. Views obtained: bilateral craniocaudal; bilateral mediolateral oblique. Computer Aided Detection was performed with OpenSpan.3 version 9.3. The present examination has been compared to prior imaging studies performed at [facility] on 10/06/2011, 03/05/2010 and 06/23/2008. The breasts are almost entirely fat. There is no suspicious abnormality in either breast. IMPRESSION: Annual screening mammography is recommended. OVERALL FINAL ASSESSMENT: BI-RADS CATEGORY 1: Negative. Requested By: LISA WEINBERG M.D. Dictated By: ANGELICA BYNUM M.D. on Oct 20 2012 1:30P This document has been electronically signed by: ANGELICA BYNUM M.D. on Oct 20 2012 1:30P us Historical Provider MD [facility] PROCEDURES Chrissie l Result * Serum [...] Most Recently Relevant to [place] [address] [facility] MEDICARE FOR [facility] [place] [place] [address] MEDICARE [facility] OPEN ACCESS COUNTS INCLUDE 234 BEDS AT THE [facility] [address] [place] [address] [place] [address] [place] [address] Care Teams Signals Intelligence Superintendent Relationship Specialty Start Date End Date Mercedes Collins MD [address] [facility] [address] [place] [address] PCP - General 06/25/17 Andrzej Grimes, FABRICIO [address] [place] [address] Referring Physician Ophthalmology 04/18/20 Ramsey Barbosa MD [address] [place] [address] Equipment Driver Transplant 05/30/21 Juana Leal, ABHILASH [address] [facility] [address] [place] [address] Heart Failure Coordinator [employer] Operations Staff Officer 05/30/21
[2024-04-24 20:00] VITALS: BP 105/87; PULSE 78; RESP 16; O2SAT 100
[2024-04-24 20:19] LABS: Basophils Percent Auto 0.2 % (0.2-1.2); Eosinophils Absolute Auto 0.3 K/mm3 (0-0.3); Eosinophils Percent Auto 3.1 % (0-4.4); Hematocrit 41.6 % (37.0-47.0); Hemoglobin 13.7 g/dL (12.0-15.0); Immature Granulocyte Absolute 0.08 K/mm3 (0.00-0.031); Immature Granulocyte Percent A 0.8 % (0-0.5); Lymphocytes Absolute Auto 3.26 K/mm3 (0.9-3.2); Lymphocytes Percent Auto 30.8 % (18.3-44.2); Mean Corpuscular HGB Conc 32.9 g/dl (32-36); Mean Corpuscular Hemoglobin 28.1 pg (26-34); Mean Corpuscular Volume 85.2 fl (80-100); Mean Platelet Volume 9.3 fl (7.4-10.4); Monocytes Absolute Auto 0.5 K/mm3 (0.1-0.6); Monocytes Percent Auto 4.7 % (2.6-8.5); Neutrophils Absolute Auto 6.4 K/mm3 (1.3-6.7); Neutrophils Percent Auto 60.4 % (45.5-73.1); Platelet Count Result 339 k/mm3 (150-375); Red Blood Count 4.88 M/mm3 (4.2-5.4); Red Cell Distribution Width 12.1 % (11.5-14.5); White Blood Count 10.6 K/mm3 (4.5-10.0)
[2024-04-24 20:23] LABS: Estimated CRCL calculation 75 ml/min; Estimated Glomerular Filt Rate > 60
[2024-04-24 20:30] LABS: Alanine Aminotransferase 43 U/L (6-35); Albumin Level 4.3 g/dL (3.5-5.1); Alkaline Phosphatase 119 U/L (38-126); Anion Gap 10 mmol/L (4-12); Aspartate Amino Transferase 32 U/L (14-36); Bilirubin,Total 0.8 mg/dL (0.2-1.3); Blood Urea Nitrogen 9 mg/dL (7-17); Calcium 9.3 mg/dL (8.4-10.2); Carbon Dioxide 26 mmol/L (22-30); Chloride 103 mmol/L (98-107); Estimated CRCL calculation 79 ml/min; Estimated Glomerular Filt Rate > 60; Glucose 126 mg/dL (65-110); Lipase 67 U/L (23-300); Potassium 3.6 mmol/L (3.4-5.0); Sodium 139 mmol/L (137-145)
[2024-04-24 20:42] LABS: D Dimer 1.96 ug/mL (<0.48)
[2024-04-24 21:12] LABS: Troponin I < 0.012 ng/mL (0.000-0.034)
[2024-04-24] MEDS: PANTOPRAZOLE SODIUM IV 40 MG VIAL IV PUSH (21:12)
[2024-04-24 21:15] VITALS: BP 116/72; PULSE 68; RESP 17; O2SAT 99
[2024-04-24] MEDS: ONDANSETRON INJ 4 MG/2 ML VIAL IV PUSH (21:16)
--- NOTE | 2024-04-24 21:42 | ED.ABDPAIN ---
HPI - Abdominal Pain General Chief Complaint: Abdominal Pain Stated Complaint: UPPER ABD PAIN Time Seen by Provider: 04/24/24 19:19 History of Present Illness HPI narrative: Patient for last week and a half has been having some left upper quadrant/epigastric discomfort radiating up to her throat with feeling a knot in her throat, overall her chest pain has resolved and now she just has discomfort to her epigastric abdomen. No shortness of breath. History of gastritis already on Protonix. She has also noticed a small area tenderness and redness to her left lower leg, has a history of DVTs, but she is already on blood thinners currently. Related Data Home Medications ?Medication ?Instructions ?Recorded ?Confirmed ?Last Taken ?Type albuterol sulfate 90 mcg/actuation inhalation 10/19/19 Unknown History aerosol inhaler collagenase clostridium histo. 250 topical 10/19/19 Unknown History unit/gram topical ointment (Santyl) folic acid 1 mg tablet 10/19/19 Unknown History furosemide 40 mg tablet 10/19/19 Unknown History hydrocodone 5 mg-acetaminophen 325 10/19/19 Unknown History mg tablet isosorbide mononitrate 60 mg mg PO 10/19/19 Unknown History tablet,extended release 24 hr levothyroxine 88 mcg tablet 10/19/19 Unknown History metformin 500 mg tablet mg 10/19/19 Unknown History methotrexate (PF) 7.5 mg/0.15 mL subcut 10/19/19 Unknown History subcutaneous auto-injector (Rasuvo (PF)) potassium chloride 20 mEq meq PO 10/19/19 Unknown History tablet,extended release(part/cryst) (Klor-Con M) rivaroxaban 20 mg tablet (Xarelto) mg 10/19/19 Unknown History rosuvastatin 10 mg tablet mg 10/19/19 Unknown History triamcinolone acetonide 0.1 % topical 10/19/19 Unknown History topical ointment umeclidinium 62.5 mcg-vilanterol inhalation 10/19/19 Unknown History 25 mcg/actuation powdr for inhalation (Anoro Ellipta) verapamil 240 mg tablet,extended mg PO 10/19/19 Unknown History release spironolactone 25 mg tablet mg 01/24/24 Unknown History vibegron 75 mg tablet (Gemtesa) mg 01/24/24 Unknown History Allergies Allergy/AdvReac Type Severity Reaction Status Date / Time levofloxacin Allergy Severe LIGAMENT Verified 01/24/24 18:23 DAMAGE, AND TENDON DAMAGE simvastatin Allergy Intermediate Other Verified 01/24/24 18:23 ciprofloxacin Allergy Mild Unknown Verified 01/24/24 18:23 lisinopril Allergy Unknown Unknown Verified 04/24/24 19:32 Review of Systems Review of Systems: All systems reviewed & are unremarkable except as noted in HPI and below PMFSH Past Medical History Medical History Diabetes Pleurisy Pulmonary embolism Pulmonary hypertension Rheumatoid arteritis Exam Narrative: EXAMINATION OF ORGAN SYSTEMS/BODY AREAS: Constitutional: Vital signs per nursing GENERAL:[No acute distress, non-toxic appearing.] HEAD: Normal with no signs of head trauma. EYES: EOMI, conjunctiva normal ENT: Hearing grossly intact LUNGS: Nonlabored breathing. HEART: [Regular rate and rhythm], normal DP pulse ABD: [Soft], epigastric tenderness EXT: Normal range of motion, no lower extremity swelling SKIN: Small 3 cm x 3 cm patch induration, redness, and tenderness to her left lower anterior medial leg NEURO: [Alert and oriented x 3. No gross focal sensory or strength deficits.] PSYCH: Normal affect Course Vital Signs Vital signs: Vital Signs Pulse Rate 85 04/24/24 19:19 Respiratory Rate 18 04/24/24 19:19 Blood Pressure 129/87 04/24/24 19:19 Pulse Oximetry 98 04/24/24 19:19 Oxygen Delivery Room Air 04/24/24 19:19 Pulse Rate 85 04/24/24 19:19 Respiratory Rate 18 04/24/24 19:19 Blood Pressure 129/87 04/24/24 19:19 Pulse Oximetry 98 04/24/24 19:19 Oxygen Delivery Room Air 04/24/24 19:19 MDM - Abdominal Pain MDM Narrative Medical decision making narrative: Patient presenting here with epigastric pain that came up to her throat, she does have history of gastritis/esophagitis and has been taking a lot of Maalox, overall this has been improving. She has also noticed a small area of tenderness to her left lower leg, she does have history of DVT but she is already on Xarelto. Abdomen soft with minimal epigastric tenderness. Labs within acceptable limits, including troponin. D-dimer is elevated, we cannot get a DVT ultrasound here tonight so will make appointment for tomorrow morning, order provided to patient, discussed they will come back for DVT ultrasound when emergency medical technician is here. Have low concern pulmonary embolism given that she is already on Xarelto and has no chest pain or shortness of breath, no tachycardia or hypoxia. EKG on my independent interpretation shows normal sinus rhythm rate 79, normal CT, QRS, QTC, axis, no significant ST elevations depressions or signs of acute ischemia or arrhythmia. CT obtained showing esophagitis/gastritis which I believe is causing her symptoms; possible ?bronchiolitis? L lower lung however she has no cough/chest pain/fever/shortness of breath so I doubt pneumonia; pancreatic cyst; ?possible cystitis, however she has no dysuria or lower abdominal pain so I have lower concern for this. CT findings discussed with the patient as well as needed follow-up for further evaluation of the pancreatic cyst. Under evaluation she does feel better after the medications, I will prescribe famotidine and Keflex for potential cellulitis versus DVT. Patient agreeable to this plan, strict return precautions given and instructions discussed with patient as well as family at bedside in person and on paper.. Lab Data 04/24/24 20:04 04/24/24 20:21 Labs: Lab Results 04/24/24 04/24/24 Range/Units 20:04 20:21 WBC 10.6 H (4.5-10.0) K/mm3 RBC 4.88 (4.2-5.4) M/mm3 Hgb 13.7 (12.0-15.0) g/dL Hct 41.6 (37.0-47.0) % MCV 85.2 (80-100) fl MCH 28.1 (26-34) pg MCHC 32.9 (32-36) g/dl RDW 12.1 (11.5-14.5) % Plt Count 339 (150-375) k/mm3 MPV 9.3 (7.4-10.4) fl Immature Gran % (Auto) 0.8 H (0-0.5) % Neut % (Auto) 60.4 (45.5-73.1) % Lymph % (Auto) 30.8 (18.3-44.2) % [place] % (Auto) 4.7 (2.6-8.5) % Eos % (Auto) 3.1 (0-4.4) % Baso % (Auto) 0.2 (0.2-1.2) % Lymph # (Auto) 3.26 H (0.9-3.2) K/mm3 [place] # (Auto) 0.5 (0.1-0.6) K/mm3 Eos # (Auto) 0.3 (0-0.3) K/mm3 Baso # (Auto) 0.0 (0.0-0.1) K/mm3 Abs Immat Gran (auto) 0.08 H (0.00-0.031) K/mm3 Absolute Neuts (auto) 6.4 (1.3-6.7) K/mm3 Absolute Nucleated RBC 0.000 (0.0-0.012) K/mm3 Nucleated RBC % 0.0 (0.0-0.2) % D-Dimer 1.96 H (<0.48) ug/mL Sodium 139 (137-145) mmol/L Potassium 3.6 (3.4-5.0) mmol/L Chloride 103 (98-107) mmol/L Carbon Dioxide 26 (22-30) mmol/L Anion Gap 10 (4-12) mmol/L BUN 9 (7-17) mg/dL Creatinine 0.85 0.90 (0.7-1.0) mg/dL Estim Creat Clear Calc 79 75 ml/min Estimated GFR > 60 > 60 (59 - ) Glucose 126 H (65-110) mg/dL Calcium 9.3 (8.4-10.2) mg/dL Total Bilirubin 0.8 (0.2-1.3) mg/dL AST 32 (14-36) U/L ALT 43 H (6-35) U/L Alkaline Phosphatase 119 (38-126) U/L Troponin I < 0.012 (0.000-0.034) ng/mL Total Protein 8.0 (6.3-8.2) g/dL Albumin 4.3 (3.5-5.1) g/dL Lipase 67 (23-300) U/L Imaging Data Radiologist's impression: ITS Impressions Abdomen/Pelvis CT 04/24/24 20:57 IMPRESSION: Ill-defined, subtle groundglass opacities in the lingula and left lower lobe, may reflect mild hypersensitivity pneumonitis, respiratory bronchiolitis, or infectious airways disease. Esophagitis and antral gastritis. Hepatic steatosis. Contour abnormality with calcification along the uncinate process of the pancreas, may represent a pancreatic lesion, adjacent lymph node, or a lobule of normal pancreatic tissue. Recommend nonemergent but timely MRI of the abdomen without and with contrast for further evaluation. 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 Bladder wall thickening despite adequate distention, as can be seen with cystitis. Discharge Plan Discharge Clinical Impression: Esophagitis, Pancreas cyst Patient Disposition: Home, Self-Care Condition: Stable Instructions: Esophagitis (ED) Additional Instructions: Please follow-up with your anthropology lecturer and PCP, you have a pancreatic head cyst that can be evaluated further with MRI abdomen; please take medications as prescribed for potential leg infection, and esophagitis, and you should come back tomorrow morning at 7:00 a.m. for a DVT ultrasound to make sure there there is no blood clot in your left lower leg. If your symptoms get worse, you can return to the emergency room. Patient Language: Nepalese Prescriptions: New cephalexin 500 mg capsule 500 mg PO Q6H 7 Days Qty: 28 0RF famotidine 20 mg tablet 20 mg PO BID Qty: 30 0RF No Action spironolactone 25 mg tablet Gemtesa 75 mg tablet furosemide 40 mg tablet metformin 500 mg tablet hydrocodone-acetaminophen 5-325 mg tablet isosorbide mononitrate 60 mg tablet extended release 24 hr PO levothyroxine 88 mcg tablet potassium chloride [Klor-Con M20] 20 mEq tablet,ER particles/crystals PO triamcinolone acetonide 0.1 % ointment TOPICAL verapamil 240 mg tablet extended release PO folic acid 1 mg tablet Santyl 250 unit/gram ointment TOPICAL albuterol sulfate 90 mcg/actuation HFA aerosol inhaler INHALATION rosuvastatin 10 mg tablet Xarelto 20 mg tablet Anoro Ellipta 62.5-25 mcg/actuation blister with device INHALATION Rasuvo (PF) 7.5 mg/0.15 mL auto-injector SUBCUT tramadol 50 mg tablet 50 mg PO Q4H PRN (Reason: pain) Qty: 15 0RF Other Ambulatory Orders: US venous doppler LE LT (Routine) Timeframe: 1 Day Location: Determined by Patient Ordered By: Danielle Glynn Follow-up/Referrals: PHYSICIAN NOT ON STAFF,NONSTAFF [Primary Care Provider] -
[2024-04-24 22:00] VITALS: BP 129/79; PULSE 69; RESP 18; O2SAT 100
[2024-04-24] MEDS: CEPHALEXIN 500 MG CAPSULE PO (23:01)
== END 2024-04-24 23:15 | disposition home or self-care (01) ==
PROVIDERS: Emergency Provider Emergency Medicine
DX: K20.90 Esophagitis, unspecified without bleeding (principal); K86.2 Cyst of pancreas; E11.9 Type 2 diabetes mellitus without complications; I27.20 Pulmonary hypertension, unspecified; M06.9 Rheumatoid arthritis, unspecified; Z86.711 Personal history of pulmonary embolism; Z79.84 Long term (current) use of oral hypoglycemic drugs; Z79.01 Long term (current) use of anticoagulants; Z79.899 Other long term (current) drug therapy; K76.0 Fatty (change of) liver, not elsewhere classified; K29.70 Gastritis, unspecified, without bleeding; R91.8 Other nonspecific abnormal finding of lung field
CPT/HCPCS: 36415; 74177; 80053; 83690; 84484; 85025; 85380; 93005; 96374; 96375; 99284; A9270; J2405; J2470; Q9967

== ENCOUNTER 2024-04-25 08:58 | Outpatient (CLI) | payer MEDICARE, OTHER, SELFPAY ==
--- NOTE | ~2024-04-25 | US_ITS ---
EXAMINATION: US venous doppler [facility] DATE: 04/25/2024 09:51 INDICATION: Left lower limb pain. TECHNIQUE: Grayscale ultrasound images without and with compression and Doppler ultrasound images of the left lower extremity veins were obtained. COMPARISON: Ultrasound 12/29/2012 FINDINGS: The visualized portions of left common femoral vein, profunda (deep) femoral vein, femoral vein, popl iteal vein, peroneal veins, posterior tibial veins, and greater saphenous vein outflow are patent. IMPRESSION: 1. No deep venous thrombosis. Reviewed, dictated and finalized at location B.
--- OUTSIDE RECORDS SUMMARY | 2024-04-25 10:07 | XMS_ITS | Clinical Summary ---
Author Organization [facility] [employer] Address [address] [place] [address] Care Team Providers Care Supervisor Special Education Name Role Phone Chucky Menendez MD Unavailable [phone] Nathalie Guzman MD, Wade Lopes Unavailable [phone] Danielle Reina MD Unavailable [phone] Mercedes [place] MD Primary Care Provider [phone] Ramsey Barbosa MD Unavailable [phone] Mercedes [place] MD Unavailable Source Comments [facility],non-owned Affiliates and Associated Physician Practices is amultiple site organization consisting of ambulatory clinics and hospital sitesin [place], [place], [place] and [place]. This disclosure is being madepursuant to the Care Everywhere program and may not contain all information available regarding this patient. Last updated 17.[facility] Allergies Active Allergy Reactions Criticality Noted Date [...] neuropathy, without long-term current use of insulin ([facility]) Use 1 Each once daily 100 Each 5 05/21/2023 Active Blood Glucose Monitoring Suppl (Really Cheap GeeksTouch Verio) w/Device KITIndications:Type 2 diabetes mellitus with diabetic neuropathy, without long-term current use of insulin ([facility]) Use 1 Each as directed 1 kit 05/21/2023 Active blood glucose (Really Cheap GeeksTouch Verio) test stripIndications:Ty pe 2 diabetes mellitus with diabetic neuropathy, without long-term current use of insulin ([facility]) Use 1 (one) strip as directed 50 strip 11 05/21/2023 Active ipratropium (Atrovent) 0.03 % nasal sprayIndications:Na ghulam congestion SPRAY 1-2 SPRAYS INTO EACH NOSTRIL 3 TIMES DAILY 30 mL 06/04/2023 Active fluticasone propionate (Flonase) 50 MCG/ACT nasal spray [place] 1 (one) spray into each nostril 2 [...] 90 tablet 3 11/26/2023 Active nystatin (Mycostatin) 951041 UNIT/GM ointment Apply to vulva twice daily [...] 90 tablet 1 03/16/2024 Active HYDROcodone-acetami nophen (Revillo) 5-325 MG tabletIndications:R heumatoid arthritis involving multiple [...] Encounters Date Type Department Care Team Description 04/25/2024 Refill [facility] Internal Medicine [address] [place] [phone] Mercedes [place] MD Refill Request 04/15/2024 Telephone [facility] Internal Medicine [address] [place] [phone] Mercedes [place] MD Appointment; Reminder Call; Pain Abdominal 04/14/2024 Telephone [facility] Internal Medicine [address] [place] [phone] Mercedes [place] MD Update 03/24/[address] [phone] Mercedes [place] MD MEDICATION REFILL 03/08/2024 Refill [facility] Internal Medicine [address] [place] [phone] Mercedes [place] MD Refill Request 02/15/2024 Refill [facility] Internal Medicine [address] [place] [phone] Mercedes [place] MD Refill Request 02/05/2024 Refill [facility] Internal Medicine [address] [place] [phone] Mercedes [place] MD MEDICATION REFILL 02/03/2024 1:00 PM SCOREKEEPER Office Visit [facility] Internal Medicine [address] [place] [phone] Mercedes [place] MD Type 2 diabetes mellitus with diabetic neuropathy, without long-term current use of insulin (HCC) (Primary Dx); Rheumatoid arthritis involving multiple sites with positive rheumatoid factor (HCC); Rheumatoid arthritis involving multiple sites, unspecified whether rheumatoid factor present (HCC); Left foot pain; Postablative hypothyroidism; Mixed hyperlipidemia; Diabetes mellitus type 2 without retinopathy (HCC); Primary hypertension; Chronic diastolic heart failure (HCC); Restrictive lung disease; BIJAN (obstructive sleep apnea); Chronic obstructive pulmonary disease, unspecified COPD type (HCC) 02/02/2024 Refill [facility] Internal Medicine [address] [place] [phone] Mercedes [place] MD Refill Request 01/26/2024 Refill [facility] Internal Medicine [address] [place] [phone] Mercedes [place] MD Refill Request from Last 3 Months Immunizations Name Administration Dates Next Due INFLUENZA VACCINE, TRIV. (AF LURIA, FLUZONE TRIVALENT; 6MO+) (IIV3) 12/30/2011,11/19/2010 Covid Smarterer primary monoval ent 12+ yr 0.3mL Purple [...] Comments Blood Pressure 128/74 02/03/2024 1:14 PM SCOREKEEPER Pulse 102 02/03/2024 1:14 PM SCOREKEEPER Temperature 36.7 C (98.1 F) 02/03/2024 1:14 PM SCOREKEEPER Respiratory Rate 18 01/21/2023 4:54 PM SCOREKEEPER Oxygen Saturation 99% 02/03/2024 1:14 PM SCOREKEEPER Inhaled Oxygen Concentration 21% 07/18/2020 7 :57 AM CDT Weight 106.7 kg (235 lb 3.2 oz) 02/03/2024 1:14 PM SCOREKEEPER Height 175.3 cm (5' 9.02 ) 02/03/2024 1:14 PM CS T Body Mass Index 34.72 02/03/2024 1:14 PM SCOREKEEPER Plan of Treatment Upcoming Encounters Date Type Department Care Team (Late st Contact Info) Description 06/07/2024 1:20 PM CDT Office Visit [facility] - Internal Medicine [address] [place] [phone] Mercedes [place] MD [address] [place] [phone] 12/01/2024 11:45 AM CDT Office Visit [facility] - [facility] [address] [place] [phone] Peterson Nance MD [address] [place] [address] [phone] Health Maintenance Due Date Last Done Comments [...] Td or Tdap) 2023 09/13/2013 COVID-19 VACCINE ( season) 2023 11/14/2020, 10/24/2020 INFLUENZA VACCINE (#1) 2023 4, 12/30/2011, 12/30/2011, Additional history exists DEPRESSION SCREENING 02/17/2024 03/18/2023, 06/27/2022, 04/24/2021 DIABETES - URINE PROTEIN SCREENING 02/17/2024 10/17/2023, 07/21/2022, 04/20/2021, Additional history exists MEDICARE AWV CALENDAR YEAR 2024 05/21/2023, 10/07/2022, 09/04/2021, Additional history exists DIABETES-FOOT EXAM WITH MONOFILAMENT 03/22/2024 03/22/2023, 04/13/2020 (Done Outside Per Report) DIABETES-HGB A1C 08/03/2024 02/03/2024, , 05/12/2023, Additional history exists MAMMOGRAM 10/12/2024 10/13/2023, 07/2021, 01/21/2022, Additional history exists Opioid Medication Agreement [...] OF CARE (AMB) Routine 02/03/2024 1:15 PM SCOREKEEPER Type 2 diabetes mellitus with diabetic neuropathy, [...] P24 AG PANEL Routine 02/24/2020 8:11 AM SCOREKEEPER Screening for HIV (human immunodeficiency virus) ENDOSCOPY, COLON, SCREENING Routine 01/25/2016 9:18 AM SCOREKEEPER HEPATITIS C ANTIBODY Routine 11/30/2012 12:54 PM CDT Need for hepatitis C screening test from Last 3 Months or Most Recently Relevant to Health Maintenance Results * HEMOGLOBIN A1C - POINT OF CARE (HgbA1C) (02/03/2024 1:15 PM SCOREKEEPER) Hemoglobin A1c POCT 8.4 % [facility] Expiration Date 10/06/[address] [facility] Lot # [id number] [facility] QC Verified Yes Yes [facility] Blood BLOOD SPECIMEN / Unknown 02/03/2024 1:15 PM SCOREKEEPER Mercedes [place] MD LAB - POINT OF CARE ORDERABLES [facility] [address] [phone] * MICROALB/CREAT RATIO URINE RANDOM PANEL (10/17/2023 [...] Resulting Agency Comment [facility]: [facility] [address] [facility] [phone] Mercedes [place] MD LAB - URINE CHEMISTR Y ORDERABLES [facility] INSURANCE BILL [address] [place] [address] * (ABNORMAL) COMPREHENSIVE METABOLIC PANEL (10/17/2023 10:25 [...] Resulting Agency Comment [facility]: [facility] [address] [facility] [phone] Mercedes [place] MD LAB - CHEMISTRY [facility] [place] Organization Address City/State/ZIP Co de Phone Number [facility] INSURANCE BILL [address] [place] [address] * Mammo Bilat Screening [place] (10/13/2023 [...] detected Not detected 11/07/2020 5:01 PM CDT [facility] High Risk Human Papilloma Interp 11/07/2020 5:01 PM CDT [facility] Comment:High Risk Human Dev lloma Virus was Not Detected. Pathology/Cytolo gy MISCELLANEOUS SAMPLES / Unknown 11/02/2020 2:27 PM CDT 11/05/2020 12:05 PM CDT Narrative [facility] - 11/07/2020 5:01 PM CDT [...] Peterson Nance MD LAB - MICROBIOLOGY O AVILA [facility] [address] [phone] * HIV-1 HIV-2 ANTIBODY + HIV P24 AG PANEL (02/24/2020 8:11 AM SCOREKEEPER) HIV Screen 4th Generation w Reflex Non Reactive Non Reactive [facility] INSURANCE BILL Blood BLOOD SPECIMEN / Unknown 02/24/2020 8:11 AM SCOREKEEPER 02/24/2020 Narrative Resulting Agency Comment Lab Testing performed at: [place] [id number] [facility] [phone] Mercedes [place] MD LAB - CHEMISTRY [place] Performing Organization Address City/[facility]/ZIP Co de Phone Number [facility] INSURANCE BILL [address] [place] [address] * ENDOSCOPY, COLON, SCREENING (01/25/2016 9:18 AM SCOREKEEPER) Report Endoscopy POC _ Patient Name: Pola [...] colon cancer. Procedure Code(s): --- Professional --- 12396, Colonoscopy, flexible; diagnostic, including collection of specimen(s) by brushing or washing, when performed (separate procedure) --- Technical --- 77197, Colonoscopy, flexible; diagnostic, including collection of specimen(s) [...] or abscess without bleeding CPT copyright 2015 [employer]. All rights reserved. The codes documented in this report are preliminary and upon police commanding officer review may be revised to meet current compliance requirements. Nikita Fraser MD 01/25/2016 9:58:01 AM This report has been signed electronically. Number of Addenda: 0 Note Initiated On: 01/25/2016 9:18 AM [facility] ENDOSCOPY 01/25/2016 9:18 AM SCOREKEEPER Nikita Fraser MD GI PROCEDURE ORDERAB LES [facility] ENDOSCOPY * HEPATITIS C ANTIBODY [...] a more specific supplemental or PCR testing. [facility] offers HCV Ab w/Reflex to Verification test #[id number]. Blood specimen (specimen) BLOOD SPECIMEN / Unknown 11/30/2012 12:54 PM CDT 11/30/2012 7:02 PM CDT Narrative Resulting Agency Comment [facility] [address] [phone] José Ashton MD LAB - CHEMISTRY [place] [facility] INSURANCE BILL from Last 3 Months or Most Recently Relevant to Health Maintenance Advance Directives Documents on File Type Date Recorded Patient Building Principal Expl anation Adv Directive/Living Will/POA 02/20/2013 9:49 [...] 5:18 PM 2010 11:41 PM Care Teams Supervisor Special Education Relationship Specialty Start Date End Date Mercedes [place] MD [address] [facility] [address] [place] [phone] PCP - General Internal Medicine 05/17/19 Mercedes [place] MD [address] [place] [address] [address] [place] [phone] PCP - Attributed-[facility] 02/16/23 Chucky Menendez MD [address] [place] [address] [address] [place] [address] Electrician Constructor Supervisor Pulmonary Disease 09/20/15 Wade Zelaya Jr., MD [address] [place] [id number] Rheumatology 12/01/16 Danielle Reina MD [address] [place] [phone] Orthopedic Surgery 12/01/16 Ramsey Barbosa MD [address] [address] Internal Medicine 10/29/22
--- OUTSIDE RECORDS SUMMARY | 2024-04-25 10:07 | XMS_ITS | Patient Health Summary ---
Author Organization [facility] Address [address] [place] [address] Care Team Providers Care Hand Shaker Name Role Phone Chucky Menendez MD Unavailable [phone] Nathalie Guzman MD, Wade Lopes Unavailable [phone] Danielle Reina MD Unavailable [phone] Mercedes Collins MD Primary Care Provider [phone] Ramsey Barbosa MD Unavailable Mercedes Collins MD Unavailable [phone] Note from [facility] [place] [facility] [place]non-owned Affiliates and Associated Physician Practices is amultiple site organization consisting of ambulatory clinics and hospital sitesin [place], [place], [place] and [place]. This disclosure is being madepursuant to the Care Everywhere program and may not contain all information available regarding this patient. Last updated 17.[facility] Allergies * Ciprofloxacin Hydrochloride(Urticaria,Diarrhea) * Ciprofloxacin(Rash,Urticaria,Unknown) -High [...] 1 Each as directed * blood glucose (Rollbase (acquired by [employer])Touch Verio) test strip(Started 05/21/2023) Use 1 (one) strip as directed 11 refills by 05/20/2024 * ipratropium (Atrovent) 0.03 % nasal spray(Started 06/04/2023) SPRAY 1-2 SPRAYS INTO EACH NOSTRIL 3 TIMES DAILY * fluticasone propionate (Flonase) 50 MCG/ACT nasal spray(Started 10/07/2023) Dennis 1 (one) spray into each nostril 2 [...] 3 refills by 11/25/2024 * nystatin (Mycostatin) [id number] UNIT/GM ointment(Started 11/26/2023) Apply to vulva twice [...] daily 1 refill by 03/16/2025 * HYDROcodone-acetaminophen (Nazareth) 5-325 MG tablet(Started 03/25/2024) Take 1 (one) [...] Comments Blood Pressure 128/74 02/03/2024 1:14 PM WHEEL TRUER Pulse 102 02/03/2024 1:14 PM WHEEL TRUER Temperature 36.7 C (98.1 F) 02/03/2024 1:14 PM WHEEL TRUER Respiratory Rate 18 01/21/2023 4:54 PM WHEEL TRUER Oxygen Saturation 99% 02/03/2024 1:14 PM WHEEL TRUER Inhaled Oxygen Concentration 21% 07/18/2020 7 :57 AM CDT Weight 106.7 kg (235 lb 3.2 oz) 02/03/2024 1:14 PM WHEEL TRUER Height 175.3 cm (5' 9.02 ) 02/03/2024 1:14 PM CS T Body Mass Index 34.72 02/03/2024 1:14 PM WHEEL TRUER Procedures * HEMOGLOBIN A1C - POINT OF [...] without long- term current use of insulin ([facility]) * TSH+FREE T4+FREE T3(Performed 10/17/2023) Performed for Postablative hypothyroidism * VITAMIN D 25-HYDROXY(Performed 10/17/2023) Performed for Vitamin D deficiency * LIPID PROFILE REFLEX LDL DIRECT(Performed 10/17/2023) Performed for Mixed hyperlipidemia * COMPREHENSIVE METABOLIC PANEL(Performed 10/17/2023) Performed for Type 2 diabetes mellitus with diabetic neuropathy, without long- term current use of insulin ([facility]) * CBC W AUTO DIFFERENTIAL(Performed 10/17/2023) Performed for Type 2 diabetes mellitus with diabetic neuropathy, without long- term current use of insulin ([facility]) * XR CERVICAL SPINE 2 OR 3VW(Performed [...] without long- term current use of insulin ([facility]) * XR TIBIA FIBULA LEFT 2VW(Performed 03/24/2023) [...] URINE(Performed 12/20/2020) Performed for UTI symptoms * NE INSERT NON-INDWELLING BLADDER(Performed 12/18/2020) Performed for UTI [...] rheumatoid factor (HCC), Tachycardia, paroxysmal (HCC) * NE INSERT NON-INDWELLING BLADDER(Performed 11/21/2020) Performed for Urinary [...] Performed for Pelvic pain in female * NE US PELVIC NONOB REAL-TIME IMG COMPLETE(Performed 03/08/2018) [...] * HOMOCYSTEINE BLOOD QUANTITATIVE(Performed 03/05/2013) * PROTHROMBIN [id number] PANEL(Performed 03/05/2013) * FACTOR V LEIDEN MUTATION [...] STRIP ORDER(Performed 09/16/2010) * IP CONSULT TO WAD LUBRICATOR(Performed 09/13/2010) * BASIC METABOLIC PANEL (CALCIUM TOTAL)(Performed [...] POINT OF CARE (HgbA1C) (02/03/2024 1:15 PM WHEEL TRUER) Only the most recent of13 resultswithin the time period is included. Hemoglobin A1c POCT 8.4 % [facility] Expiration Date 10/06/[address] [facility] Lot # [id number] [facility] QC Verified Yes Yes [facility] Blood BLOOD SPECIMEN / Unknown 02/03/2024 1:15 PM WHEEL TRUER Mercedes Collins MD LAB - POINT OF CARE ORDERABLES [facility] [address] [place], [address] [phone] * XR Foot Left 3Vw or More [...] MD on 12/17/2023 5:25 PM Marbella Giang MOTEL FRONT DESK CLERK-BUILDING DRAFTER DIAGNOSTIC SURI GING ORDERABLES * XR Ankle [...] MD on 12/17/2023 5:33 PM Marbella Giang MOTEL FRONT DESK CLERK-BUILDING DRAFTER DIAGNOSTIC SURI GING ORDERABLES * XR Tibia [...] MD on 12/17/2023 5:35 PM Marbella Giang MOTEL FRONT DESK CLERK-BUILDING DRAFTER DIAGNOSTIC SURI GING ORDERABLES * SUREAB VAGINOSIS/VAGINITIS [...] Comment: For additional information, please refer to https://education.[employer].IAMINTOIT/faq/HHS517 (This link is being provided for information/ educational purposes only.) Test Performed at: [facility] [address] [place] [address] EMBER RIVERA MD Microbiology VAGINAL SWAB / Unknown 11/26/2023 12:15 PM CDT 11/27/2023 6:47 AM CDT Peterson Nance MD LAB - MICROBIOLOGY O RDERABLES [facility] [address] [place] [address] * LIPID PROFILE REFLEX LDL DIRECT (10/17/2023 [...] Resulting Agency Comment Lab Testing performed at: [facility] [address] [facility] [phone] Mercedes Collins MD LAB - CHEMISTRY RORY DALTON [facility] Organization Address City/State/ZIP Co de Phone Number [facility] INSURANCE BILL [address] [place] [address] * TSH+FREE T4+FREE T3 (10/17/2023 10:25 AM [...] Resulting Agency Comment Lab Testing performed at: [employer] [address] [place] [address] [phone] Mercedes Collins MD LAB - CHEMISTRY ORDE RABLES Performing Organization Address [facility] de Phone Number [facility] [address] [place] [address] * MICROALB/CREAT RATIO URINE RANDOM PANEL (10/17/2023 [...] Resulting Agency Comment Lab Testing performed at: [employer] [address] [place] [address] [phone] Mercedes Collins MD LAB - URINE CHEMISTR Y ORDERABLES Performing Organization Address [facility] de Phone Number [facility] INSURANCE BILL [address] [place] [address] * VITAMIN D 25-HYDROXY (10/17/2023 10:25 AM CDT) Only the most recent of3 resultswithin the time period is included. Vitamin D, 25 Hydroxy 35.8 30.0 - 100.0 ng/mL [facility] INSURANCE BILL Comment: Vitamin D deficiency has been defined by the [place] of Medicine and an Endocrine Society practice guideline as a level of serum 25-OH vitamin D less than 20 ng/mL (1,2). The Endocrine Society went on to further define vitamin D insufficiency as a level between 21 and 29 ng/mL (2). 1. IOM ([place] of Medicine). 2010. Dietary reference intakes for calcium and D. [place]: The National Academies Press. 2. Jefferson MF, Noemi LESTER, Ryan ORNELAS, et al. Evaluation, treatment, and prevention of vitamin D deficiency: an Endocrine Society clinical practice guideline. JCEM. 2010; 96(7):1911-30. FASTING Blood BLOOD SPECIMEN / Unknown 10/17/2023 10:25 AM CDT 10/17/2023 Narrative Resulting Agency Comment Lab Testing performed at: [facility] [address] [facility] [phone] Mercedes Collins MD LAB - CHEMISTRY RORY DALTON [facility] INSURANCE BILL [address] [place] [address] * (ABNORMAL) CBC WITH DIFFERENTIAL (10/17/2023 10:25 [...] Resulting Agency Comment Lab Testing performed at: [facility] [address] [facility] [phone] Mercedes Collins MD LAB - HEMATOLOGY ORD ERABLES [facility] INSURANCE BILL [address] [place] [address] * (ABNORMAL) COMPREHENSIVE METABOLIC PANEL (10/17/2023 10:25 [...] Resulting Agency Comment Lab Testing performed at: [facility] [address] [facility] [phone] Mercedes Collins MD LAB - CHEMISTRY RORY DALTON [facility] INSURANCE BILL [address] [place] [address] * XR CERVICAL SPINE 2 OR 3VW [...] Procedure Note Samir Love MD - 05/13/2023 [place] [address] Lower Extremity Venous Ultrasound Report Pat.Name: POLA TURNER Pat.ID: [id number] .Date: 05/13/2023 Refer.MD: Mercedes Collins Exam Time: 11:12:00 AM Study Type:LE Venous Age: 7 1960,62Y Sex: FEMALE Sonogrphr: Lula Monreal RVT, [facility] Pat. Stat.:Outpatient ICD - 9: m79.89 CPT - 4: 39507 Reason for Study: Swelling -Leg, bilateral History / Clinical: Hypertension, Pulmonary Emboli Procedures: Lower Extremity Venous - Bilateral Race: 2 Visit ID: [id number] ++++++++++++++++++++++++++++++++++++ SUMMARY: ++++++++++++++++++++++++++++++++++++ No evidence of deep [...] TIBIA FIBULA LEFT 2VW (03/24/2023 2:54 PM WHEEL TRUER) Anatomical Region Laterality Modality Lower Extremity Radiographic Suri ging 03/25/2023 10:0 9 AM WHEEL TRUER Narrative 03/25/2023 10:50 AM WHEEL TRUER PROCEDURE: XR TIBIA FIBULA LEFT 2VW, DATE/TIME OF EXAM: 03/24/2023 2:54 PM, LOCATION [facility] INDICATION: R22.42: Localized swelling, mass and lump, [...] 2VW, DATE/TIME OF EXAM: 03/24/2023 2:54PM, LOCATION [facility] INDICATION: R22.42: Localized swelling, mass and lump, [...] Miguel Garcia MD on 03/25/2023 10:50 AM Gricelda Mckay MOTEL FRONT DESK CLERK-BUILDING DRAFTER DIAGNOSTIC IMAGING ORDERABLES * CARDIAC EKG ORDER (01/22/2023 5:49 PM WHEEL TRUER) Only the most recent of6 resultswithin the time period is included. Narrative 01/22/2023 5:49 PM WHEEL TRUER Ordered by an unspecified provider. Scanned Document CARDIAC SERVICES ORD ERABLES * TROPONIN-I HIGH SENSITIVE BASELINE + 1HR (01/21/2023 5:52 PM WHEEL TRUER) Troponin I High Sensitive <3 <=14 ng/L 01/21/2023 6:13 PM WHEEL TRUER [facility] Blood BLOOD SPECIMEN / Unknown Venipuncture / Unknown 01/21/2023 5:52 PM WHEEL TRUER 01/21/2023 5:52 PM WHEEL TRUER Paresh Patino PA-C LAB - CHEMISTRY ORD ERABLES [facility] [address] [place] [place] [phone] * B-TYPE NATRIURETIC PEPTIDE (01/21/2023 5:52 PM WHEEL TRUER) Only the most recent of7 resultswithin the time period is included. BNP <10 <=100 pg/mL 01/21/2023 6:16 PM WHEEL TRUER [facility] Blood BLOOD SPECIMEN / Unknown Venipuncture / Unknown 01/21/2023 5:52 PM WHEEL TRUER 01/21/2023 5:52 PM WHEEL TRUER Narrative [facility] - 01/21/2023 6:16 PM WHEEL TRUER A cutoff of 100 pg/mL has been [...] - CHEMISTRY ORD ERABLES Performing Organization Address [facility] Co de Phone Number [facility] [address] [place] [address] * SARS-COV-2 (COVID-19)+INFLU A+B PCR RAPID (01/21/2023 5:38 PM WHEEL TRUER) [facility] COVID-19 PCR Not detected Not detected 01/22/20 6:24 PM WHEEL TRUER [facility] Influenza A PCR Not detected Not detected 01/21/2023 6:24 PM WHEEL TRUER [facility] Influenza B PCR Not detected Not detected 01/21/2023 6:24 PM WHEEL TRUER [facility] Microbiology SPECIMEN FROM NASOPHARYNGEAL STRUCTURE / Unknown Collection / Unknown 01/21/2023 5:38 PM WHEEL TRUER 01/21/2023 5:38 PM WHEEL TRUER Narrative [facility] - 01/21/2023 6:24 PM WHEEL TRUER This nucleic acid amplification assay has been [...] LAB - MICROBIOLOGY ORDERABLES Performing Organization Address [facility] Co de Phone Number [facility] [address] [place] [address] * EKG 12-LEAD (01/21/2023 5:33 PM WHEEL TRUER) Only the most recent of9 resultswithin the time period is included. [facility] Ventricular Rate 60 BPM [facility] MUSE Atrial Rate 60 BPM [facility] P-R Interval 130 ms [facility] QRS Duration ms 84 ms [facility] Q-T Interval ms 410 ms [facility] QTC Calculation (Bezet) 410 ms [facility] MUSE Calculated P [place] 36 degrees [facility] MUSE Calculated R [place] 15 degrees [facility] MUSE Calculated T [place] 24 degrees [facility] Interpretation EKG NORMAL SINUS RHYTHM NORMAL ECG WHEN COMPARED WITH ECG OF 13-JUL-2020 22:47, Limb lead reversal IS NO LONGER PRESENT Confirmed by Matthew North MD ([id number]) on 01/22/2023 7:54:22 AM [facility] MUSE 01/21/2023 5:33 PM WHEEL TRUER 01/22/2023 7:54 AM WHEEL TRUER Paresh Patino PA-C ECG ORDERABLES [facility] * XR CHEST PA AND LATERAL (ROUTINE) (01/21/2023 5:19 PM WHEEL TRUER) Only the most recent of10 resultswithin the time period is included. Anatomical Region Laterality Modality Chest Radiographic Suri ging 01/21/2023 5:23 PM WHEEL TRUER Impressions 01/21/2023 5:23 PM WHEEL TRUER IMPRESSION: Normal > Interpreting Provider: Devin Hayes MD on 01/21/2023 5:23 PM Narrative 01/21/2023 5:23 PM WHEEL TRUER PROCEDURE: XR CHEST 2VW DATE/TIME OF EXAM: [...] XR KNEE RIGHT 3VW (01/01/2023 1:18 PM WHEEL TRUER) Anatomical Region Laterality Modality Lower Extremity Radiographic Suri ging 01/01/2023 1:21 PM WHEEL TRUER Narrative 01/01/2023 2:09 PM WHEEL TRUER PROCEDURE: XR KNEE RIGHT 3VW, DATE/TIME OF EXAM: 01/01/2023 1:18 PM, LOCATION [facility] INDICATION: M25.561: Pain in right knee FINDINGS: [...] DATE/TIME OF EXAM: 01/01/2023 1:18 PM, LOCATION [facility] INDICATION: M25.561: Pain in right knee FINDINGS: Tricompartmental hypertrophic degenerative change is present with mild joint space narrowing. No acute fracture or dislocation is seen. Thereis degenerative change of the proximal tibiofibular articulation. Edited by Radha Dominguez on 01/01/2023 1:42 PM > Interpreting Provider: José Miguel Garcia MD on 01/01/2023 2:09 PM Gricelda Mckay MOTEL FRONT DESK CLERK-BUILDING DRAFTER DIAGNOSTIC IMAGING ORDERABLES * (ABNORMAL) IRON + [...] Resulting Agency Comment Lab [facility] performed [facility]: [facility] [address] [facility] [phone] Mercedes Collins MD LAB - CHEMISTRY RORY DALTON Performing Organization Address [facility] Co de Phone Number [facility] INSURANCE BILL [address] [place] [address] * C-REACTIVE PROTEIN (CRP) (10/08/2022 7:30 AM CDT) Only the most recent of2 resultswithin the time period is included. C-Reactive Protein 3 0 - 10 mg/L [facility] INSURANCE BILL Comment:FASTING Blood BLOOD SPECIMEN / Unknown 10/08/2022 7:30 AM CDT 10/08/2022 Narrative Resulting Agency Comment Lab Testing performed at: [facility] [employer] [place] [phone] Mercedes Collins MD LAB - CHEMISTRY RORY DALTON Performing Organization Address [facility] de Phone Number [facility] INSURANCE BILL [address] [place] [address] * SED RATE AUTO (ESR) (10/08/2022 7:30 AM CDT) Only the most recent of6 resultswithin the time period is included. Erythrocyte Sedimentation Rate Westergren 39 0 - 40 mm/hr [facility] INSURANCE BILL Comment:FASTING Blood BLOOD SPECIMEN / Unknown 10/08/2022 7:30 AM CDT 10/08/2022 Narrative Resulting Agency Comment Lab Testing performed at: [facility] [address] [facility] [phone] Mercedes Collins MD LAB - HEMATOLOGY ROYA CHANDLER Performing Organization Address City/[facility]/ZIP Co de Phone Number [facility] INSURANCE BILL [address] [place] [address] * MAGNESIUM BLOOD (10/08/2022 7:30 AM CDT) Only the most recent of3 resultswithin the time period is included. Magnesium 1.9 1.6 - 2.3 mg/dL [facility] INSURANCE BILL Comment:FASTING Blood BLOOD SPECIMEN / Unknown 10/08/2022 7:30 AM CDT 10/08/2022 Narrative Resulting Agency Comment Lab Testing performed at: [employer] [address] [facility] [phone] Mercedes Collins MD LAB - CHEMISTRY RORY DALTON Performing Organization Address [facility] Co de Phone Number [facility] INSURANCE BILL [address] [place] [address] * (ABNORMAL) HEMOGLOBIN A1C (07/21/2022 10:41 AM [...] [facility] Resulting Agency Comment Lab Testing performed at: [facility] [place] [address] [facility] [phone] Mercedes Collins MD LAB - CHEMISTRY RORY DALTON Performing Organization Address City/[facility] Co de Phone Number [facility] [address] [place] [address] * EYE EXAM (06/13/2022) Anatomical Region Laterality Modality Other 06/13/2022 Narrative 06/13/2022 Ordered by an unspecified provider. Scanned Document SCANNING ONLY * CBC W DIFF (EXTERNAL RESULT ENTRY) (04/20/2021 10:17 AM WHEEL TRUER) WBC (EXTERNAL RESULT) 8.5 10^3/ul OUTSIDE REFERENCE LAB Hemoglobin (EXTERNAL RESULT) 14.2 g/dl [facility]IDE REFERENCE LAB Hematocrit (EXTERNAL RESULT) 42.8 % OUT[facility]IDE REFERENCE LAB Platelets (EXTERNAL RESULT) 356 10^3/ul OUT[facility]IDE REFERENCE LAB Neutrophil Absolute (EXTERNAL RESULT) 3.6 10^3/ul OUT[facility]IDE REFERENCE LAB Blood BLOOD SPECIMEN / Unknown 04/20/2021 10:17 AM WHEEL TRUER Historical Provider LAB - HEMATOLOGY ORDERABLES OUTSIDE REFERENCE LAB * COMP MET PANEL (EXTERNAL RESULT ENTRY) (04/20/2021 10:17 AM WHEEL TRUER) Glucose (EXTERNAL) 114 mg/dL OUTSIDE REFERENCE LAB [...] BLOOD SPECIMEN / Unknown 04/20/2021 10:17 AM WHEEL TRUER Historical Provider LAB - CHEMISTRY O RDERABLES [...] [facility] Comment: CULTURE, URINE, ROUTINE Micro Number: [id number] Test Status: Final Specimen Source: Urine Specimen [...] INCORRECT, PLEASE CONTACT CLIENT SERVICES. PHONE NUMBER: [phone] Test Performed at: [facility] [address] EMBER RIVERA MD Urine URINE SPECIMEN COLLECTION, CATHETERIZED / Unknown 12/19/2020 3:57 AM CDT Dominick Dodson MD LAB - MICROBIOLO GY ORDERABLES [address] [address] * NE INSERT NON-INDWELLING BLADDER (12/18/2020 5:38 PM CDT) [...] of this report has been sent to [facility] Cardiology Resulting Agency Comment Lab Testing [facility]: [facility] [address] [facility] [phone] Mercedes Collins MD LAB - CHEMISTRY RORY DALTON [facility] INSURANCE BILL [address] [place] [address] * LIPID PROFILE (LIPID PANEL) (12/15/2020 9:27 [...] Agency Comment Lab Testing performed at: [facility] [place] [address] [facility] [phone] Mercedes Collins MD LAB - CHEMISTRY RORY DALTON [facility] INSURANCE BILL [address] [place] [address] * NE INSERT NON-INDWELLING BLADDER (11/21/2020 6:21 PM CDT) [...] POCT neg Ketones UA POCT neg Specific [place] UA 1.005 Blood Urine POCT 1+ Comment:25 Kory/uL pH UA 6.0 Protein UA neg Urobilinogen UA neg Nitrite UA neg WBC UA neg Urine URINE / Unknown 11/21/2020 1 1:52 AM CDT Dominick Dodson MD LAB - POINT OF C ARE ORDERABLES * (ABNORMAL) URINALYSIS W/MICROSCOPIC NO CULTURE (11/21/2020 11:52 AM CDT) Color UA YELLOW YELLOW [facility] Appearance CLEAR CLEAR [facility] Specific [place] UA 1.008 1.001 - 1.035 [facility] pH [...] SEEN /LPF [facility] Comment: Test Performed at: [facility] [address] EMBER RIVERA MD 11/21/2020 11:5 2 AM CDT 11/23/2020 5:57 AM CDT Dominick Dodson MD LAB - URINALYSIS ORDERABLES Performing Organization Address [facility]/ZIP Co de Phone Number [address] [address] * HPV DETECTION HIGH RISK MELINDA (11/02/2020 2:27 PM CDT) High Risk Human Papilloma Result Not detected Not detected 11/07/2020 5:01 PM CDT [facility] High Risk Human Papilloma Interp 11/07/2020 5:01 PM CDT [facility] Comment:High Risk Human Dev lloma Virus was Not Detected. Pathology/Cytolo gy MISCELLANEOUS SAMPLES / Unknown 11/02/2020 2:27 PM CDT 11/05/2020 12:05 PM CDT Narrative [facility] - 11/07/2020 5:01 PM [...] MICROBIOLOGY O RDERABLES [facility] [address] [place], [place] [address] [phone] * PAP IMAGE-GUIDED W HPV (11/02/2020 2:27 PM CDT) Only the most recent of2 resultswithin the time period is included. Case Report Gynecologic Cytology Report Case: [id number] Authorizing Provider: Peterson Nance MD Collected: 11/02/2020 02:27 PM Ordering Location: [facility] Obstetrics Received: 11/05/2020 12:05 PM Gynecology [...] 10:13 AM CDT [facility] Interpretation BEND SORTER Negative for intraepithelial lesion or malignancy. 11/08/2020 10:13 AM CDT [facility] Pap Footnote The Pap Smear is a screening test. False positive and false negative results occur. Negative results do not preclude abnormalities, thus clinical correlation is required. This specimen was evaluated by the [facility] Imaging System along with an additional manual rescreening by a credit administration officer and/or pathologist. 11/08/2020 10:13 AM CDT [facility] Embedded Images 10:13 AM CDT [facility] Pathology/Cytolo gy MISCELLANEOUS SAMPLES / Unknown 11/02/2020 2:27 PM CDT 11/05/2020 12:05 PM CDT Peterson Nance MD LAB - PATHOLOGY/CYTO LOGY ORDERABLES [facility] [address] [phone] * US RETROPERITONEAL COMPLETE (08/01/2020 2:41 PM [...] on 08/01/2020 at 3:18 PM Carlota Hyman APRN-BUILDING DRAFTER US ORDERABLES * REF LAB-SPECIMEN STATUS REPORT (08/01/2020 1:48 PM CDT) Specimen Status Report NOT NEEDED [facility] INSURANCE BILL Comment: Test not performed. No urine specimen was received for culture. TEST: [id number] Urine Culture, Routine Ancillary determined the test is not needed. 08/01/2020 1:48 PM CDT 08/01/2020 Narrative Resulting Agency Comment Lab Testing performed at: [facility] [employer] [phone] Carlota Hyman MOTEL FRONT DESK CLERK-BUILDING DRAFTER LAB - CHEMISTRY ORDERABLES [facility] INSURANCE [place] [address] * URINALYSIS - POINT OF CARE (08/01/2020 [...] Negative [facility] Specific [place] UA POCT 1.015 1.002 - 1.[address] [facility] Ketone UA negative Negative [facility] Bilirubin UA POCT negative Negative [facility] Glucose UA negative Negative [facility] Urine URINE / Unknown 08/01/2020 1 :40 PM CDT Carlota Hyman APRN-BUILDING DRAFTER LAB - POINT OF CARE ORDERABLES [facility] [address] [phone] * CARDIAC RHYTHM STRIP ORDER (07/23/2020 12:11 [...] - 105 mg/dL 07/18/2020 6:17 AM CDT [facility] Sodium 136 136 - 145 mmol/L 07/18/2020 6:17 AM CDT [facility] Potassium 3.6 3.5 - 5.1 mmol/L 07/18/2020 6:17 AM CDT [facility] Chloride 106 98 - 107 mmol/L 07/18/2020 6:17 AM CDT [facility] CO2 23 23 - 31 mmol/L 07/18/2020 6:17 AM CDT [facility] Calcium 8.5 8.4 - 10.4 mg/dL 07/18/2020 6:17 AM CDT [facility] Anion Gap 7(L) 8 - 18 mmol/L 07/18/2020 6:17 AM CDT [facility] BUN 8(L) 9.8 - 20.1 mg/dL 07/18/2020 6:17 AM CDT [facility] Creatinine 0.74 0.57 - 1.11 mg/dL 07/18/2020 6:17 AM CDT [facility] Albumin 3.0(L) 3.5 - 5.2 gm/dL 07/18/2020 6:17 AM CDT [facility] Phosphorus 4.6 2.3 - 4.7 mg/dL 07/18/2020 6:17 AM CDT [facility] eGFR by MDRD >60 >60 mL/min/1.7 3m2 07/18/2020 6:17 AM CDT [facility] eGFR by MDRD >60 >60 mL/min/1.7 3m2 07/18/2020 6:17 AM CDT [facility] Blood BLOOD SPECIMEN / Unknown Lab Venipuncture / Unknown 07/18/2020 5:28 AM CDT 07/18/2020 5:48 AM CDT Moreno Keenan MD LAB - CHEMISTRY RORY DALTON [facility] Organization Address City/State/ZIP Co de Phone Number [facility] [address] [place] [address] * QUANTIFERON-TB GOLD PLUS 4-TUBE (07/17/2020 5:20 AM CDT) [facility] Signature QuantiFERON Criteria Comment 07/19/2020 10:06 PM CDT [facility] ([facility]) Comment: The QuantiFERON-TB Gold Plus result is determined by subtracting the Nil value from either TB antigen (Ag) tube. The mitogen tube serves as a control for the test. QuantiFERON TB1 Ag Value 0.01 IU/mL 07/19/2020 10:06 PM CDT [facility] ([facility]) QuantiFERON TB2 Ag Value 0.02 IU/mL 07/19/2020 10:06 PM CDT [facility] ([facility]) QuantiFERON Nil Value 0.02 IU/mL 07/19/2020 10:06 PM CDT [facility] ([facility]) QuantiFERON Mitogen Value >10.00 IU/mL 07/19/2020 10:06 PM CDT [facility] ([facility]) QuantiFERON-TB Gold Plus Negative Negative 07/19/2020 10:06 PM CDT [facility] ([facility]) Comment: The specimen received for QuantiFERON testing [...] AM CDT 07/17/2020 6:02 AM CDT Narrative [facility] ([facility]) - 07/19/2020 10:06 PM CDT Performed at: [address] [place] [id number] Administrative And Program Specialist: Jose Daley PhD, Phone: [phone] Mariam Monsivais MD LAB - CHEMISTRY RORY DALTON [facility] ([facility]) [address] [place] [address] * ANCA VASCULITIS PANEL (07/16/2020 3:42 AM CDT) [facility] Anti-myeloperoxid ase (MPO) Antibody <9.0 0.0 - 9.0 U/mL 07/19/2020 5:08 PM CDT [facility] ([facility]) Anti-proteinase 3 (NE-3) Abs <3.5 0.0 - 3.5 U/mL 07/19/2020 5:08 PM CDT [facility] ([facility]) Cytoplasmic (C-ANCA) <1:20 Neg:<1:20 titer 07/19/2020 5:08 PM CDT [facility] ([facility]) p-ANCA Titer <1:20 Neg:<1:20 titer 07/19/2020 5:08 PM CDT [facility] ([facility]) Comment: The presence of positive fluorescence exhibiting P-ANCA or C-ANCA patterns alone is not specific for the diagnosis of Lara's Granulomatosis (WG) or microscopic polyangiitis. Decisions about treatment should not be based solely on ANCA IFA results. The [employer] ANCA [employer] Consensus recommends follow up testing of positive sera with both NE-3 and MPO-ANCA enzyme immunoassays. As many as 5% serum samples are positive only by EIA. Ref. AM J Clin Pathol 1999;111:507-513. Atypical p-ANCA Titer <1:20 Neg:<1:20 titer 07/19/2020 5:08 PM CDT [facility] ([facility]) Comment: The atypical pANCA pattern has been observed in a significant percentage of patients with ulcerative colitis, primary sclerosing cholangitis and autoimmune hepatitis. Blood BLOOD SPECIMEN / Unknown Lab Venipuncture / Unknown 07/16/2020 3:42 AM CDT 07/16/2020 5:31 AM CDT [facility] ([facility]) - 07/19/2020 5:08 PM CDT Performed at: 01 - [address] [id number] Administrative And Program Specialist: Fam Lemons MD, Phone: [phone] Performed at: 02 - [facility] [address] [place], [place] [id number] Administrative And Program Specialist: Jose Daley PhD, Phone: [phone] Mariam Monsivais MD LAB - CHEMISTRY RORY DALTON [facility] ([facility]) [address] [place] [address] * (ABNORMAL) RHEUMATOID FACTOR BLOOD QUANTITATIVE (07/16/2020 3:41 AM CDT) Only the most recent of2 resultswithin the time period is included. Pathologist [facility] Rheumatoid Factor Quantitative 119(H) <30 IU/mL 07/16/2020 6:59 AM CDT [facility] Blood BLOOD SPECIMEN / Unknown Lab Venipuncture / Unknown 07/16/2020 3:41 AM CDT 07/16/2020 5:31 AM CDT Mariam Monsivais MD LAB - CHEMISTRY ORDE SHA Performing Organization Address [facility] Co de Phone Number [facility] [address] [place] [phone] * (ABNORMAL) JUAN M BLOOD TITER (07/16/2020 3:41 AM CDT) Pathologist [facility] Homogeneous 1:160(A) <1:80 07/18/2020 11:32 AM CDT [facility] Blood BLOOD SPECIMEN / Unknown Lab Venipuncture / Unknown 07/16/2020 3:41 AM CDT 07/16/2020 5:31 AM CDT Narrative [facility] - 07/18/2020 11:32 AM CDT Methodology: Indirect Immunofluorescence Assay (IFA) utilizing Hep-2-Gamma cells. Mariam Monsivais MD LAB - CHEMISTRY ORDMacario DALTON Performing Organization Address [facility] de Phone Number [facility] [address] [place] [phone] * (ABNORMAL) JUAN M BLOOD SCREEN W/REFLEX TITER (07/16/2020 3:41 AM CDT) Only the most recent of2 resultswithin the time period is included. Pathologist [facility] JUAN M Positive(A ) Negative 07/18/2020 11:32 AM CDT [facility] Blood BLOOD SPECIMEN / Unknown Lab Venipuncture / Unknown 07/16/2020 3:41 AM CDT 07/16/2020 5:31 AM CDT Narrative [facility] - 07/18/2020 11:32 AM CDT Methodology: Indirect Immunofluorescence Assay (IFA) utilizing Hep-2-Gamma cells. Mariam Monsivais MD LAB - CHEMISTRY RORY DALTON [facility] [address] [place] [address] * ECHOCARDIOGRAM 2D WITH DOPPLER (07/15/2020 11:15 AM CDT) Only the most recent of5 resultswithin the time period is included. 07/15/2020 11:1 5 AM CDT Narrative Procedure Note aMrcos Banks MD - 07/17/2020 . [place] [id number] Echocardiography Examination Transthoracic Name: POLA TURNER MPI#: MR#: [id number] Admission Number: [id number] Study Date: 07/17/2020 Study Time: 12:59 PM [...] to opacify the left ventricle. Facility Location: [facility] Indication: Fever unknown origin Procedure Systems Analyst Developer: Pepe Hennessy Ordering Provider: CLAUDE ALVAREZ Reading [...] PHT 79 ms Mitral Valve MV Dec [place] 3.39 m/s Pulmonic Valve PV PGmax 3 mmHg Pulmonic Valve PV Vmax, Caliper 0.8 m/s (0.6m/s - 0.9m/s) Right Ventricle Diastolic PV AT 116 ms Function (No Signature Object) Patient: POLA TURNER Study Date: 07/17/2020 12:59 PM Page 3 of 3 Claude Alvarez DO ECHO ORDERABLES Performing Organization Address [facility] Co de Phone Number [facility] [address] [place] [address] * CULTURE BLOOD (07/15/2020 7:29 AM CDT) Only the most recent of3 resultswithin the time period is included. Pathologist [facility] Culture No growth day 5 LIDIA 07/20/2020 2:00 PM CDT [facility] Blood PERIPHERAL BLOOD / Unknown Lab Venipuncture / Unknown 07/15/2020 7:29 AM CDT 07/15/2020 8:32 AM CDT Claude Alvarez DO LAB - MICROBIOLOGY O RDERABLES Performing Organization Address [facility] Co de Phone Number [facility] [address] [phone] * T4 FREE DIRECT REFLEXED (07/15/2020 4:32 AM CDT) Pathologist [facility] T4 Free 1.07 0.70 - 1.48 ng/dL 07/15/2020 11:01 AM CDT [facility] Blood BLOOD SPECIMEN / Unknown Lab Venipuncture / Unknown 07/15/2020 4:32 AM CDT 07/15/2020 5:30 AM CDT Claude Alvarez DO LAB - CHEMISTRY ORDE RABLES Performing Organization Address [facility] Co de Phone Number [facility] [address] [place] [phone] * (ABNORMAL) TSH REFLEX FREE T4 (07/15/2020 4:32 AM CDT) Only the most recent of2 resultswithin the time period is included. Pathologist [facility] TSH 0.312(L) 0.350 - 4.940 uIU/mL 07/15/2020 10:39 AM CDT [facility] Blood BLOOD SPECIMEN / Unknown Lab Venipuncture / Unknown 07/15/2020 4:32 AM CDT 07/15/2020 5:30 AM CDT Claude Alvarez DO LAB - CHEMISTRY ORDE RABMARYBETH Performing Organization Address [facility]/ZIP Co de Phone Number [facility] [address] [place] [address] * CBC W/O DIFFERENTIAL (07/15/2020 4:32 AM CDT) [facility] WBC 9.5 4.4 - 10.7 x10E9/L 07/15/2020 5:39 AM CDT [facility] RBC 4.37 3.80 - 5.20 x10E12/L 07/15/2020 5:39 AM CDT [facility] Hemoglobin 12.6 12.0 - 15.6 gm/dL 07/15/2020 5:39 AM CDT [facility] Hematocrit 37.2 35.9 - 45.5 % 07/15/2020 5:39 AM CDT [facility] MCV 85.1 80.7 - 98.3 fl 07/15/2020 5:39 AM CDT [facility] MCH 28.8 26.7 - 34.0 pg 07/15/2020 5:39 AM CDT [facility] MCHC 33.9 30.8 - 35.9 gm/dL 07/15/2020 5:39 AM CDT [facility] Platelet Count 175 153 - 416 x10E9/L 07/15/2020 5:39 AM CDT [facility] RDW-CV 13.4 12.1 - 14.9 % 07/15/2020 5:39 AM CDT [facility] MPV 10.3 9.4 - 12.9 fl 07/15/2020 5:39 AM CDT [facility] Blood BLOOD SPECIMEN / Unknown Lab Venipuncture / Unknown 07/15/2020 4:32 AM CDT 07/15/2020 5:30 AM CDT Claude Alvarez DO LAB - HEMATOLOGY ORD ERABLES Performing Organization Address City/[facility]/ZIP Co de Phone Number [facility] [address] [place] [address] * US ABDOMEN COMPLETE (07/14/2020 1:00 PM CDT) Anatomical Region Laterality Modality Abdomen Ultrasound 07/14/2020 1:33 PM CDT Narrative 07/14/2020 3:19 PM CDT US ABDOMEN COMPLETE*[id number] Exam Date: 07/14/2020 1:00 PM HISTORY: Right [...] index measures approximately 0.84. *Reading Radiologist: Constantin Mckeno on 07/14/2020 at 3:19 PM Procedure Note Constantin Mckeon MD - 07/14/2020 US ABDOMEN COMPLETE*[id number] Exam Date: 07/14/2020 1:00 PM HISTORY: Right [...] Straw Straw, Yellow 07/14/2020 1:40 AM CDT [facility] Clarity UA Clear Clear 07/14/2020 1:40 AM CDT [facility] Glucose UA Negative Negative 07/14/2020 1:40 AM CDT [facility] Bilirubin UA Negative Negative 07/14/2020 1:40 AM CDT [facility] Ketone UA Trace(A) Negative 07/14/2020 1:40 AM CDT [facility] Specific [place] UA 1.027 1.005 - 1.030 07/14/2020 1:40 AM CDT [facility] Blood UA 3+(A) Negative 07/14/2020 1:40 AM CDT [facility] pH UA 8.0 5.0 - 8.0 pH 07/14/2020 1:40 AM CDT [facility] Protein UA Negative Negative 07/14/2020 1:40 AM CDT [facility] Urobilinogen UA Negative Negative mg/dL 07/14/2020 1:40 AM CDT [facility] Nitrite UA Negative Negative 07/14/2020 1:40 AM CDT [facility] Leukocyte UA Negative Negative 07/14/2020 1:40 AM CDT [facility] Urine Microscopy Urine microscopy to follow 07/14/2020 1:40 AM T [facility] Urine URINE SPECIMEN OBTAINED BY CLEAN CATCH PROCEDURE / Unknown Collection / Unknown 07/14/2020 1:30 AM CDT 07/14/2020 1:35 AM CDT [facility] - 07/14/2020 1:40 AM CDT Malik Ochoa PA-C LAB - URINALYSIS OR DERABLES Performing Organization Address [facility]/ZIP Co de Phone Number [facility] [address] [place] [phone] * (ABNORMAL) URINE MICROSCOPIC ONLY (07/14/2020 1:30 AM CDT) RBC UA 6-10(A) None Seen, 0-2, 3-5 # /hpf 07/14/2020 1:42 AM CDT [facility] WBC UA 0-5 None Seen, 0-5 # /hpf 07/14/2020 1:42 AM CDT [facility] Bacteria UA None Seen None Seen 07/14/2020 1:42 AM CDT [facility] Squamous Epithelial Cells 0-2 None Seen, 0-2, 3-5 /hpf 07/14/2020 1:42 AM CDT [facility] Urine URINE SPECIMEN OBTAINED BY CLEAN CATCH PROCEDURE / Unknown Collection / Unknown 07/14/2020 1:30 AM CDT 07/14/2020 1:35 AM CDT Narrative [facility] - 07/14/2020 1:42 AM CDT Malik Ochoa PA-C LAB - URINALYSIS OR DERABLES Performing Organization Address [facility] Co de Phone Number [facility] [address] [place] [phone] * CT ABDOMEN PELVIS W CONTRAST (07/13/2020 [...] - 2.2 mmol/L 07/13/2020 10:27 PM CDT [facility] Blood BLOOD SPECIMEN / Unknown Venipuncture / Unknown 07/13/2020 10:11 PM CDT 07/13/2020 10:16 PM CDT Malik Ochoa PA-C LAB - CHEMISTRY ORD ERABLES Performing Organization Address [facility]/ZIP Co de Phone Number [facility] [address] [place] [phone] * LIPASE BLOOD (07/13/2020 10:11 PM CDT) Only the most recent of4 resultswithin the time period is included. Lipase 10 8 - 78 U/L 07/13/2020 10:32 PM CDT [facility] Blood BLOOD SPECIMEN / Unknown Venipuncture / Unknown 07/13/2020 10:11 PM CDT 07/13/2020 10:16 PM CDT Malik Ochoa PA-C LAB - CHEMISTRY ORD ERABLES Performing Organization Address [facility] Co de Phone Number [facility] [address] [place] [phone] * (ABNORMAL) GLUCOSE - POINT OF CARE (07/04/2020 12:11 PM CDT) Only the most recent of11 resultswithin the time period is included. Glucose WB/POC 189(H) 70 - 106 mg/dL 07/04/2020 12:48 PM CDT [facility] Specimen Type Arterial/C apillary 07/04/2020 12:48 PM CDT [facility] Blood BLOOD SPECIMEN / Unknown 07/04/2020 12:11 PM CDT 07/04/2020 12:48 PM CDT Alexx Hermosillo MD LAB - POINT OF CARE ORDERABLES Performing Organization Address [facility] Co de Phone Number [facility] [address] [place] [phone] * PROCALCITONIN LEVEL (07/02/2020 9:25 AM CDT) Procalcitonin 0.02 <0.10 ng/mL 07/02/2020 11:03 AM CDT [facility] Blood BLOOD SPECIMEN / Unknown Lab Venipuncture / Unknown 07/02/2020 9:25 AM CDT 07/02/2020 10:08 AM CDT Narrative [facility] - 07/02/2020 11:03 AM CDT The [...] Change in Procalcitonin Calculator is available at [email or web address]-[email or web address] If clinical picture has not improved and PCT remains high, reevaluate and consider treatment failure or other causes. Shaun Christopher MD LAB - CHEMISTRY RORY DALTON [facility] Organization Address City/State/[facility] Co de Phone Number [facility] [address] [place] [address] * CT OUTSIDE CONSULTATION (07/01/2020 [...] suspicious for COVID-19 pneumonia. *Reading Radiologist: Devin aHyes on 07/03/2020 at 3:23 PM [address] MD [address] ORDERABLES * TROPONIN I (07/01/2020 10:55 PM CDT) Only the most recent of10 resultswithin the time period is included. Troponin I <0.010 <0.038 ng/mL 07/01/2020 11:28 PM CDT [facility] Blood BLOOD SPECIMEN / Unknown Lab Venipuncture / Unknown 07/01/2020 10:55 PM CDT 07/01/2020 11:00 PM CDT Mercedes Haider APRN-BUILDING DRAFTER LAB - CHEMIS TRY ORDERABLES [facility] [address] [place] [address] * (ABNORMAL) DIFFERENTIAL MANUAL (07/01/2020 5:25 PM CDT) Only the most recent of2 resultswithin the time period is included. WBC Auto 7.6 x10E9/L 07/01/2020 6:12 PM CDT [facility] WBC Corrected 07/01/2020 6:12 PM CDT [facility] nRBC 07/01/2020 6:12 PM CDT [facility] Neutrophil % Manual 64 44 - 73 % 07/01/2020 6:12 PM CDT [facility] Lymphocytes % Manual 22 20 - 43 % 07/01/2020 6:12 PM CDT [facility] Monocytes % Manual 8 5 - 13 % 07/01/2020 6:12 PM CDT [facility] Atypical Lymphocyte % Manual 6(H) <=0 % 07/01/2020 6:12 PM CDT [facility] Cells Counted 100 # cells 07/01/2020 6:12 PM CDT [facility] RBC Morphology Normal 07/01/2020 6:12 PM CDT [facility] WBC Morph Normal 07/01/2020 6:12 PM CDT [facility] Platelet Estimation Normal 07/01/2020 6:12 PM CDT [facility] Blood BLOOD SPECIMEN / Unknown Venipuncture / Unknown 07/01/2020 5:25 PM CDT 07/01/2020 5:29 PM CDT Mercedes Haider APRN-BUILDING DRAFTER LAB - HEMATO LOGY ORDERABLES [facility] [address] [place] [address] * (ABNORMAL) SARS-COV-2 (COVID-19) IN HOUSE (06/18/2020 4:23 PM CDT) Pathologist [facility] COVID-19 PCR Detected( AA) Not detected 06/19/2020 6:11 AM CDT [facility] MICROBIOLOG[facility] Microbiology SPECIMEN FROM NASOPHARYNGEAL STRUCTURE / Unknown Collection / Unknown 06/18/2020 4:23 PM CDT 06/18/2020 4:23 PM CDT Narrative [facility] - 06/19/2020 6:11 AM CDT This nucleic acid amplification assay performance was validated by [facility] Microbiology [facility]. This test has been authorized [...] Collins MD LAB - MICROBIOLOGY O RDERABLES [facility] [address] [place] [address], [facility] [phone] * HIV-1 HIV-2 ANTIBODY + HIV P24 AG PANEL (02/24/2020 8:11 AM WHEEL TRUER) Pathologist [facility] HIV Screen 4th Generation w Reflex Non Reactive Non Reactive [facility] INSURANCE BILL Blood BLOOD SPECIMEN / Unknown 02/24/2020 8:11 AM WHEEL TRUER 02/24/2020 Narrative Resulting Agency Comment Lab Testing performed at: [facility] [place] [address] [facility] [phone] Mercedes Collins MD LAB - CHEMISTRY RORY NANETTEMARYBETH Performing Organization Address City/[facility]/ZIP Co de Phone Number [facility] [address] [place] [address] * HEPATITIS B SURFACE ANTIGEN W RFLX CONFIRMATION (02/24/2020 8:11 AM WHEEL TRUER) Hepatitis B Virus Surface Antigen Negative Negative [facility] INSURANCE BILL Comment:FASTING Blood BLOOD SPECIMEN / Unknown 02/24/2020 8:11 AM WHEEL TRUER 02/24/2020 Narrative Resulting Agency Comment Lab Testing performed at: [facility] [address] [facility] [id number] Mercedes Collins MD LAB - CHEMISTRY RORY NANETTEMARYBETH Performing Organization Address [facility] Co de Phone Number [employer] INSURANCE BILL [address] [place] [address] * HOLTER MONITOR (04/20/2019) Only the most recent of2 resultswithin the time period is included. Impressions France Vick - 04/20/2019 [facility] - Heart & Vascular - Holter Monitor [...] call if there are any questions. Marcos aBnks MD [facility] Health - Heart & Vascular Care Office Mercedes Collins MD CARDIAC SERVICES ORD ERABLES * HEPATITIS B SURFACE ANTIBODY (04/06/2019 9:54 AM WHEEL TRUER) Pathologist [facility] Hepatitis B Virus Surface Antibody Reactive [facility] INSURANCE BILL Comment: Non Reactive: Inconsistent with immunity, less than 10 mIU/mL Reactive: Consistent with immunity, greater than 9.9 mIU/mL Blood BLOOD SPECIMEN / Unknown 04/06/2019 9:54 AM WHEEL TRUER 04/06/2019 Narrative Resulting Agency Comment Lab Testing performed at: [employer] [id number] Mercedes Collins MD LAB - CHEMISTRY RORY DALTON Performing Organization Address City/[facility] Co de Phone Number [facility] INSURANCE BILL [address] [place] [address] * TSH (04/06/2019 9:54 AM WHEEL TRUER) Only the most recent of4 resultswithin the time period is included. Pathologist [facility] TSH 1.660 0.450 - 4.500 uIU/mL [facility] INSURANCE BILL Comment:FASTING Blood BLOOD SPECIMEN / Unknown 04/06/2019 9:54 AM WHEEL TRUER 04/06/2019 Narrative Resulting Agency Comment Lab Testing performed at: [employer] [phone] Mercedes Collins MD LAB - CHEMISTRY RORY DALTON Performing Organization Address City/[facility] Co de Phone Number [facility] INSURANCE BILL [address] [place] [address] * T4 FREE (04/06/2019 9:54 AM WHEEL TRUER) Only the most recent of3 resultswithin the time period is included. Pathologist [facility] T4 Free 1.34 0.82 - 1.77 ng/dL [facility] INSURANCE BILL Comment:FASTING Blood BLOOD SPECIMEN / Unknown 04/06/2019 9:54 AM WHEEL TRUER 04/06/2019 Narrative Resulting Agency Comment Lab Testing performed at: [employer] [phone] Mercedes Collins MD LAB - CHEMISTRY ROYAMacario FITZPATRICKMARYBETH [facility] Organization Address City/State/ZIP Co de Phone Number [facility] [place]URANCE [place] [address] * MAMMO BILAT SCREENING (03/29/2019 2:03 PM WHEEL TRUER) Only the most recent of7 resultswithin the time period is included. Anatomical Region Laterality Modality Breast Bilateral Mammography 03/29/2019 3:35 PM WHEEL TRUER Impressions 03/29/2019 3:38 PM WHEEL TRUER No mammographic evidence of malignancy in either breast. ASSESSMENT: BIRADS Category 1: Negative mammogram. RECOMMENDATION: Bilateral screening mammogram in one year. Thank you for allowing us to participate in the care of your patient. [facility] Breast [facility] utilizes [employer] as a reminder system to notify patients of their next recommended mammogram. Reading Radiologist: Ladan Hernandez MD on 03/29/2019 at 3:38 PM Narrative 03/29/2019 3:38 PM WHEEL TRUER EXAMINATION: Digital screening mammogram. Low-dose full-field digital [...] included. Anatomical Region Laterality Modality Other Britton Burden MD IMAGING * NE US PELVIC NONOB REAL-TIME IMG COMPLETE, US TRANSVAGINAL NON OB (03/08/2018 9:21 AM WHEEL TRUER) Anatomical Region Laterality Modality Abdomen Ultrasound Narrative 03/08/2018 9:21 AM WHEEL TRUER Sofia Wang 02/15/2018 12:05 PM Documentation in [...] CDT 10/26/2017 Narrative Resulting Agency Comment [facility] [place] [address] [facility] [phone] Mercedes Collins MD LAB - CHEMISTRY [place] [facility] INSURANCE BILL [address] [place] [address] * CLOSTRIDIUM DIFFICILE TOXIN A+B (02/26/2017 11:42 AM WHEEL TRUER) Only the most recent of2 resultswithin the time period is included. C difficile Toxin A + B Negative Negative [facility] INSURANCE BILL Stool STOOL SPECIMEN / Unknown 02/26/2017 11:42 AM WHEEL TRUER 02/26/2017 Narrative Resulting Agency Comment [facility] [address] [facility] [phone] Mercedes Collins MD LAB - MICROBIOLOGY O RDGERALDINE [facility] INSURANCE BILL [address] [place] [address] * CULTURE STOOL PANEL (02/26/2017 11:42 AM WHEEL TRUER) Only the most recent of2 resultswithin the [...] STOOL SPECIMEN / Unknown 02/26/2017 11:42 AM WHEEL TRUER 02/26/2017 Narrative Resulting Agency Comment [facility] [place] [address] [facility] [phone] Mercedes Collins MD LAB - MICROBIOLOGY O RDERABLES [facility] INSURANCE BILL [address] [place] [address] * TSH (EXTERNAL RESULT ENTRY) (08/13/2016) Blood BLOOD SPECIMEN / Unknown Scanned Document LAB - CHEMISTRY ROYAMacario SHA * ENDOSCOPY, COLON, SCREENING (01/25/2016 9:18 AM WHEEL TRUER) Report Endoscopy POC _ Patient Name: Pola [...] colon cancer. Procedure Code(s): --- Professional --- 91965, Colonoscopy, flexible; diagnostic, including collection of specimen(s) by brushing or washing, when performed (separate procedure) --- Technical --- 60672, Colonoscopy, flexible; diagnostic, including collection of specimen(s) [...] or abscess without bleeding CPT copyright 2015 [employer]. All rights reserved. The codes documented in this report are preliminary and upon construction contractor review may be revised to meet current compliance requirements. Nikita Fraser MD 01/25/2016 9:58:01 AM This report has been signed electronically. Number of Addenda: 0 Note Initiated On: 01/25/2016 9:18 AM [facility] ENDOSCOPY 01/25/2016 9:18 AM WHEEL TRUER Nikita Fraser MD GI PROCEDURE ORDERAB LES [facility] ENDOSCOPY * (ABNORMAL) LUPUS ANTICOAGULANT PANEL (11/09/2014 2:20 PM CDT) Only the most recent of2 resultswithin the time period is included. PTT Heparin Neutralized Not Applicable 32 - 48 sec 11/11/2014 10:06 PM CDT [facility]) PT (Lupus Anticoag) 23.6(H) 12.0 - 15.5 sec 11/11/2014 10:06 PM CDT [facility] ([facility]) PTT Lupus Anticoagulant 54(H) 32 - 48 sec 11/11/2014 10:06 PM CDT [facility] ([facility]) Thrombin Time 18.1 14.7 - 19.5 sec 11/11/2014 10:06 PM CDT [facility] ([facility]) Reptilase Time Not Applicable <=21.9 sec 11/11/2014 10:06 PM CDT [facility]) PTT 1/1 Mix 47 32 - 48 sec 11/11/2014 10:06 PM CDT [facility] ([facility]) Platelet Neutralization Not Applicable Negative 11/11/2014 10:06 PM CDT [facility] ([facility]) dRVVT 68(H) 33 - 44 sec 11/11/2014 10:06 PM CDT [facility] ([facility]) dRVVT 1:1 Mix 57(H) 33 - 44 sec 11/11/2014 10:06 PM CDT [facility] ([facility]) dRVVT Confirmatory Test Negative Negative ratio 11/11/2014 10:06 PM CDT [facility] ([facility]) Hexagonal Phospholipid Neutral Negative Negative 11/11/2014 10:06 PM CDT [facility] ([facility]) Interpretation Lupus Anticoagulant See Note 11/11/2014 10:06 PM CDT [facility] ([facility]) Comment: Lupus anticoagulant not detected. The DRVVT [...] CDT 11/09/2014 2:24 PM CDT Radha Watts MOTEL FRONT DESK CLERK-BUILDING DRAFTER LAB - HEMATOLOG Y ORDERABLES Performing Organization Address City/State/[facility] Co de Phone Number [facility] ([facility]) [address] * D-DIMER (11/09/2014 2:20 PM CDT) Only the most recent of2 resultswithin the time period is included. D-Dimer 0.22 0.17 - 0.5 mg/L FEU 11/09/2014 2:49 PM CDT [facility] Blood BLOOD SPECIMEN / Unknown Lab Venipuncture / Unknown 11/09/2014 2:20 PM CDT 11/09/2014 2:24 PM CDT Narrative [facility] - 11/09/2014 2:49 PM CDT The [...] clinical presentation, and other findings. Radha Watts APRN-BUILDING DRAFTER LAB - COAGULATI ON ORDERABLES Performing Organization Address City/[facility] Co de Phone Number [facility] [address] [place] [address] * PATHOLOGY/GENETICS HISTORICAL-ONBASE (05/17/2014) 05/17/[address] [facility] - 05/22/2014 12:35 PM CDT Peterson Nance MD LAB - CHEMISTRY RORY DALTON Performing Organization Address City/[facility] Co de Phone Number [facility] [address] * INFLUENZA A+B ANTIGEN RAPID (12/23/2013 3:38 PM WHEEL TRUER) [facility] Influenza A Antigen Negative Negative 12/23/2013 3:57 PM WHEEL TRUER [facility] Influenza B Antigen Negative Negative 12/23/2013 3:57 PM WHEEL TRUER [facility] Microbiology NASOPHARYNGEAL SWAB / Unknown 12/23/2013 3:38 PM WHEEL TRUER 12/23/2013 3:42 PM WHEEL TRUER Narrative [facility] - 12/23/2013 3:57 PM WHEEL TRUER The sensitivity of rapid tests for influenza [...] LAB - MICROBIOLOGY ORDERABLES Performing Organization Address [facility] Co de Phone Number [facility] [address] [place] [address] * (ABNORMAL) PT PTT PANEL (12/23/2013 11:55 AM WHEEL TRUER) Only the most recent of5 resultswithin the time period is included. PT 12.3(H) 9.5 - 11.6 sec 12/23/2013 12:21 PM WHEEL TRUER [facility] INR 1.18(H) 0.9 - 1.1 12/23/2013 12:21 PM WHEEL TRUER [facility] PTT 26.8 21.0 - 32.0 sec 12/23/2013 12:21 PM WHEEL TRUER [facility] Blood BLOOD SPECIMEN / Unknown 12/23/2013 11:55 AM WHEEL TRUER 12/23/2013 11:59 AM WHEEL TRUER Narrative [facility] - 12/23/2013 12:21 PM WHEEL TRUER Conventional Anticoagulant Therapy INR Reference Ranges: 2.0-3.0 Intensive Anticoagulant Therapy INR Reference Ranges: 2.5-3.5 Therapeutic Range for PTT: 44.4 - 78.3 seconds. Magaly ARAIZA LAB - COAGULATION OR DERABLES Performing Organization Address [facility] de Phone Number [facility] [address] [place] [address] * CT PE CHEST (12/12/2013 4:10 PM [...] OF CARE ORDERABLES [facility] POCT TESTING [address] * (ABNORMAL) CK BLOOD (04/29/2013 4:25 PM CDT) CK 189(H) 24 - 173 U/L [facility] INSURANCE BILL Blood specimen (specimen) BLOOD SPECIMEN / Unknown 04/29/2013 4:25 PM CDT 04/29/2013 6:27 PM CDT Narrative Resulting Agency Comment [facility] [place] [id number] [facility] [phone] Krish Woodard MD LAB - CHEMISTRY ORDE SHA [facility] INSURANCE BILL * HIGH SPECIFICITY ANTIPHOSPHOLIPID ANTIBODY PANEL (03/05/2013 3:42 AM WHEEL TRUER) High Specificity Antiphospholipid Antibody IgG 4 0 - 14 GPL 03/06/2013 8:33 PM WHEEL TRUER [employer] Comment: INTERPRETIVE INFORMATION: High-Specificity Antiphospholipid Antibody, IgG [...] 0 - 14 MPL 03/06/2013 8:33 PM WHEEL TRUER [employer] Comment: INTERPRETIVE INFORMATION: High-Specificity Antiphospholipid Antibody, IgM [...] Lab Venipuncture / Unknown 03/05/2013 3:42 AM WHEEL TRUER 03/05/2013 3:53 AM WHEEL TRUER Krish Woodard MD LAB - SEROLOGY ORDER RADHA [employer] [address] [place] [address] * PROTHROMBIN [id number] PANEL (03/05/2013 3:42 AM WHEEL TRUER) Prothrombin [id number] Negative 03/09/2013 5:51 PM WHEEL TRUER [employer] Comment: Indication for testing: Assess genetic risk for thrombosis. NEGATIVE: The Factor II, prothrombin T93310R mutation, was not detected. Other causes of [...] Rehana Willis, Ph.D. BACKGROUND INFORMATION: Prothrombin (F2) B89380M Mutation CHARACTERISTICS: The Factor II, U17022U mutation is a common genetic risk factor [...] homozygotes. CAUSE: Homozygosity or heterozygosity for F2 c.00155U>A (A51485Z). MUTATION TESTED: F2 c.83399R>A (B71704E). CLINICAL SENSITIVITY FOR VENOUS THROMBOSIS: Approximately 10 percent. METHODOLOGY: Polymerase chain reaction and fluorescence monitoring. ANALYTICAL SENSITIVITY AND SPECIFICITY: 99 percent. LIMITATIONS: Diagnostic errors can occur due to rare sequence variations. F2 gene mutations, other than C53441A, will not be detected. Test developed and characteristics determined by [employer]. See Compliance Statement C: [employer]/CS Source PT [id number] PCR Whole Blood 03/09/2013 5:51 PM WHEEL TRUER [employer] Blood specimen (specimen) BLOOD SPECIMEN / Unknown Lab Venipuncture / Unknown 03/05/2013 3:42 AM WHEEL TRUER 03/05/2013 3:53 AM WHEEL TRUER Krish Woodard MD LAB - COAGULATION OR DERABLES [facility] [address] [place] [address] * FACTOR V LEIDEN MUTATION PANEL (03/05/2013 3:42 AM WHEEL TRUER) Factor V Leiden PCR/FRET Negative 03/07/2013 10:56 PM WHEEL TRUER [facility] Comment: Indication for testing: Assess genetic risk [...] of Hispanics, 1 percent of Americans and [place] Americans and 0.5 percent of Asians are heterozygous; homozygosity occurs in 1 in 5000 individuals. INHERITANCE: Incomplete autosomal dominant. PENETRANCE: Lifetime risk of thrombosis is 10 percent for heterozygotes and 80 percent of homozygotes. CAUSE: A deleterious F5 gene mutations R506Q (1691G>A) Note: Standardized nomenclature for the Factor V Leiden mutation is c.1601G>A (p.[id number]). CLINICAL SENSITIVITY AND SPECIFICITY: 99 percent. METHODOLOGY: Polymerase chain reaction and fluorescence monitoring. ANALYTICAL SENSITIVITY AND SPECIFICITY: 99 percent. LIMITATIONS: Diagnostic errors can occur due to rare sequence variations. F5 gene mutations, other than R506Q, will not be detected. Test developed and characteristics determined by [employer]. See Compliance Statement C: [employer]/NEO Factor V Leiden Source Whole Blood 03/07/2013 10:56 PM WHEEL TRUER [facility] Blood specimen (specimen) BLOOD SPECIMEN / Unknown Lab Venipuncture / Unknown 03/05/2013 3:42 AM WHEEL TRUER 03/05/2013 3:53 AM WHEEL TRUER Krish Woodard MD LAB - COAGULATION OR DERABLES [facility] [address] [place] [address] * HOMOCYSTEINE BLOOD QUANTITATIVE (03/05/2013 3:42 AM WHEEL TRUER) Homocysteine 6.5 5.0 - 13.9 umol/L 03/05/2013 4:41 AM [facility] Blood BLOOD SPECIMEN / Unknown Lab Venipuncture / Unknown 03/05/2013 3:42 AM WHEEL TRUER 03/05/2013 3:57 AM WHEEL TRUER Krish Woodard MD LAB - CHEMISTRY [facility] [address] [place] [address] * (ABNORMAL) URINALYSIS ROUTINE W/REFLEX TO CULTURE (03/04/2013 3:27 AM WHEEL TRUER) Color UA Yellow Straw, Yellow, Dark Yellow 03/04/2013 3:53 AM [facility] Clarity UA Clear 03/04/2013 3:53 AM [facility] Specific [place] UA >=1.031(H) 1.005 - 1.030 03/04/2013 3:53 AM [facility] pH UA 6.5 5.0 - 8.0 pH 03/04/2013 3:53 AM [facility] Protein UA Negative Negative 03/04/2013 3:53 AM [facility] Blood UA Negative Negative 03/04/2013 3:53 AM [facility] Leukocyte UA Negative Negative 03/04/2013 3:53 AM [facility] Nitrite UA Negative Negative 03/04/2013 3:53 AM [facility] Glucose UA Negative Negative 03/04/2013 3:53 AM [facility] Ketone UA Negative Negative 03/04/2013 3:53 AM [facility] Bilirubin UA Negative Negative 03/04/2013 3:53 AM [facility] Urobilinogen UA 0.2 0.1 - 1.0 EU/dL 03/04/2013 3:53 AM [facility] Reflex Status Culture not indicated 03/04/2013 3:53 AM [facility] Urine URINE SPECIMEN OBTAINED BY CLEAN CATCH PROCEDURE / Unknown Collection / Unknown 03/04/2013 3:27 AM WHEEL TRUER 03/04/2013 3:41 AM WHEEL TRUER Laura Valentin MOTEL FRONT DESK CLERK-BUILDING DRAFTER LAB - URINALY SIS ORDERABLES Performing Organization Address City/[facility] Co de Phone Number [facility] [address] [place] [address] * CORTISOL BLOOD AM (03/04/2013 3:08 AM WHEEL TRUER) Cortisol AM 5.44 4.3 - 22.4 ug/dL 03/04/2013 4:26 AM WHEEL TRUER [facility] Blood BLOOD SPECIMEN / Unknown Lab Venipuncture / Unknown 03/04/2013 3:08 AM WHEEL TRUER 03/04/2013 3:20 AM WHEEL TRUER Laura Valentin APRN-BUILDING DRAFTER LAB - CAMPUS RECRUITING INTERN RY ORDERABLES Performing Organization Address [facility] de Phone Number [facility] [address] [place] [address] * CT ANGIO CHEST CT ABD PELVIS W (03/03/2013 6:26 PM WHEEL TRUER) Anatomical Region Laterality Modality Computed Tomogra phy 03/03/2013 6:34 PM WHEEL TRUER Impressions 03/03/2013 6:49 PM WHEEL TRUER 1. Segmental pulmonary embolism in the artery to the right lower lobe with no distal infarct. 2. Minimal bibasilar atelectasis. 3. Diffusely low attenuated liver likely represents fatty infiltration. 4. Sequela of old granulomatous disease. 5. Calcified uterine fibroid Results were discussed with Dr. Shearer at 6:42 PM same day as exam. Narrative 03/03/2013 6:[address] angio chest INDICATION: Shortness of breath [...] ORDERABLES * (ABNORMAL) PTT (03/03/2013 3:49 PM WHEEL TRUER) PTT 23.7(L) 24.0 - 33.0 sec 03/03/2013 4:23 PM WHEEL TRUER [facility] Blood BLOOD SPECIMEN / Unknown Venipuncture / Unknown 03/03/2013 3:49 PM WHEEL TRUER 03/03/2013 3:55 PM WHEEL TRUER Radha Liz APRN-BUILDING DRAFTER LAB - COAGULATIO N ORDERABLES Performing Organization Address City/[facility]/ZIP Co de Phone Number [facility] [address] [place] [address] * PT-INR (03/03/2013 3:49 PM WHEEL TRUER) PT 10.5 9.4 - 11.4 sec 03/03/2013 4:23 PM WHEEL TRUER [facility] INR 1.00 0.89 - 1.08 03/03/2013 4:23 PM WHEEL TRUER [facility] Blood BLOOD SPECIMEN / Unknown Venipuncture / Unknown 03/03/2013 3:49 PM WHEEL TRUER 03/03/2013 3:55 PM WHEEL TRUER Narrative [facility] - 03/03/2013 4:23 PM WHEEL TRUER Conventional Anticoagulant Therapy INR Reference Ranges: 2.0-3.0 Intensive Anticoagulant Therapy INR Reference Ranges: 2.5-3.5 Radha Liz MOTEL FRONT DESK CLERK-BUILDING DRAFTER LAB - COAGULATIO N ORDERABLES Performing Organization Address City/[facility]/ZIP Co de Phone Number [facility] [address] [place] [address] * CARDIAC PROCEDURE ORDER (02/20/2013 9:49 AM WHEEL TRUER) Narrative 02/20/2013 9:49 AM WHEEL TRUER Ordered by an unspecified provider. Transcriptions Document, Scanned - 02/20/2013 9:49 AM CST Scanned Document CARDIAC SERVICES ORD ERABLES * CARDIAC CATH CONSULT (for Epic Reporting) (02/17/2013 7:04 AM WHEEL TRUER) 02/17/2013 7:04 AM WHEEL TRUER Narrative [facility] CARDIOLOG[facility] - 02/17/2013 9:23 AM WHEEL TRUER [address] [phone] Cardiovascular Catheterization Comprehensive Report Patient: POLA TURNER MR number: [id number] Height: 68.9 in Weight: 284.5 lb BSA: 2.4 m Study date: 02/17/2013 : 1960 Age: 52 years Gender: Female Race: Black Allergies: CIPROFLOXACIN HYDROCHLORIDE, LEVOFLOXACIN Diagnostic Director Inbound Sales: Marcos Banks MD SUMMARY: -- HEMODYNAMICS: -- [...] call if any questions, Marcos Banks MD [facility] Heart [place] Office COMPLICATIONS: No complications occurred during the label stitcher visit. HEMODYNAMICS: -- Right Heart Catheterization: RA: [...] obtained. The patient was brought to the label stitcher and placed on the table. The planned [...] -- Right heart catheterization. A 7Fr Thermodilution Lima-Barb catheter was advanced to the pulmonary artery [...] SHUNTS: Systemic flow: 4.30 Procedure Note 02/17/[address] [address] Cardiovascular Catheterization Comprehensive Report Patient: POLA TURNER MR number: [id number] Height: 68.9 in Weight: 284.5 lb BSA: 2.4 m Study date: 02/17/2013 : 1960 Age: 52 years Gender: Female Race: Black Allergies: CIPROFLOXACIN HYDROCHLORIDE, LEVOFLOXACIN Diagnostic Director Inbound Sales: Marcos Banks MD SUMMARY: -- HEMODYNAMICS: -- [...] call if any questions, Marcos Banks MD [facility] [place] [facility] COMPLICATIONS: No complications occurred during the label stitcher visit. HEMODYNAMICS: -- Right Heart Catheterization: RA: [...] obtained. The patient was brought to the label stitcher and placed on the table. The planned [...] -- Right heart catheterization. A 7Fr Thermodilution Lima-Barb catheter was advanced to the pulmonary artery [...] flow: 4.30 Marcos Banks MD ECHO ORDERABLES [facility] [address] [place] [address] * NM MYOCARD PERFUSION SPECT STRESS AND REST (02/11/2013 12:21 PM WHEEL TRUER) Only the most recent of2 resultswithin the time period is included. Anatomical Region Laterality Modality Chest Nuclear Digisoni cs 02/11/2013 11:1 6 AM WHEEL TRUER Narrative Procedure Note Magalis Wright MD - 02/11/2013 [address] [facility], [address] [place] [address] [facility] Nuclear Scan Report Pat.Name: POLA TURNER Pat.ID: [id number] St.Date: 02/11/2013 Refer.MD: Shabana Davis MD Exam Time: 11:16:00 AM Study Type:[facility] Nuc Med Weight: 285lb Age: 7 1960,52Y Sex: FEMALE Sonogrphr: PAT Jennings Reason for Study:Chest pain, Shortness of breath Procedures:Lexiscan Perfusion Scan, Gated Stress Visit ID: [id number] Risk Factors:Hypertension, Family history, Prior History of [...] 0.4 mg HR: 64 BP: 152/80 QRS [place]: 0.41 deg Stress Test Results: Max HR: 96 Max BP: 121/65 Max RPP: 11318 Symptoms and Complications: Arrhythmias: None Terminated: Protocol completed Symptoms: Shortness of breath, GI discomfort, Neck pain Conclusions: Ending heart rate was 83 and ending blood pressure was 119/64. Stress ECG Interp: No ischemic S-T changes during lexiscan infusion. Signed 02/11/2013 04:14 PM Kevin Wright MD, [facility] Transcriptions Document, Scanned - 02/11/2013 4:15 [...] 7:02 PM CDT Narrative Resulting Agency Comment [address] [phone] José Ashton MD LAB - CHEMISTRY RORY DALTON Performing Organization Address [facility] de Phone Number [facility] B[facility] * HEPATITIS C ANTIBODY (11/30/2012 12:54 PM CDT) Hepatitis C Antibody <0.1 0.0 - 0.9 s/co ratio [facility] Comment: Negative: < 0.8 Indeterminate 0.8 - 0.9 Positive: > 0.9 . In order to reduce the incidence of a false positive result, the CDC recommends that all s/co ratios between 1.0 and 10.9 be confirmed by a more specific supplemental or PCR testing. [facility] offers HCV Ab w/Reflex to Verification test #[id number]. Blood specimen (specimen) BLOOD SPECIMEN / Unknown 11/30/2012 12:54 PM CDT 11/30/2012 7:02 PM CDT Narrative Resulting Agency Comment [facility] [address] [facility] [phone] José Ashton MD LAB - CHEMISTRY RORY DALTON Performing Organization Address [facility] de Phone Number [facility] INSURANCE BILL * FL FLUORO SMALL BOWEL [...] CARDIAC ECHOCARDIOGRAM COMPLETE ORDER (01/13/2012 1:31 PM WHEEL TRUER) Narrative 01/13/2012 1:31 PM WHEEL TRUER Procedure Note Document, Scanned - 01/13/2012 1:31 PM CST Scanned Document ECHO ORDERABLES * URIC ACID BLOOD (12/30/2011 2:27 PM WHEEL TRUER) Uric Acid 6.9 2.5 - 7.1 mg/dL [facility] INSURANCE BILL Comment:Therapeutic target f or gout patients: <6.0 Blood specimen (specimen) BLOOD SPECIMEN / Unknown 12/30/2011 2:27 PM WHEEL TRUER 12/30/2011 5:30 PM WHEEL TRUER Narrative Resulting Agency Comment [address] [phone] José Ashton MD LAB - CHEMISTRY RORY DALTON [facility] INSURANCE BILL * CT ABDOMEN WITH IV CONTRAST (02/05/2011 10:43 AM WHEEL TRUER) Anatomical Region Laterality Modality Abdomen Computed Tomogra phy 02/05/2011 11:0 4 AM WHEEL TRUER Narrative 02/05/2011 11:[address] ABDOMEN CLINICAL INFORMATION: Upper abdominal bloating [...] ORDERABLES * AMYLASE BLOOD (01/29/2011 9:07 AM WHEEL TRUER) Amylase 52 31 - 124 U/L [facility] INSURANCE BILL Blood specimen (specimen) BLOOD SPECIMEN / Unknown 01/29/2011 9:07 AM WHEEL TRUER 01/29/2011 5:50 PM WHEEL TRUER Narrative Resulting Agency Comment [facility] [address] [phone] José Ashton MD LAB - CHEMISTRY RORY DALTON [facility] INSURANCE BILL * STRESS TEST LEXISCAN (NUCLEAR) (11/29/2010) José Ashton MD CARDIAC SERVICES ORD ERABLES * IP CONSULT TO WAD LUBRICATOR (09/13/2010 8:29 AM CDT) Louis Rosario MD [...] INDICATION: Left facial droop, TIA? TECHNIQUE: 2-D dblk-uu-ylxfzf nonenhanced neck MRA with 3-D reformations. Less [...] INDICATION: Left facial droop, TIA? TECHNIQUE: 2-D gwty-pn-jgrewv nonenhanced neck MRA with 3-D reformations. Less [...] significant intracranial large arterial findings. 2. Incomplete [place], incidental finding. Narrative 09/12/2010 9:28 AM CDT MRA BRAIN, NONCONTRAST DATE: 09/12/2010. INDICATION: Left facial droop. TECHNIQUE: 3-D qdlw-aj-ibtlim nonenhanced brain MRA with 3-D reformations. FINDINGS: [...] is a common anatomic variant. Procedure Note Deivn Hayes MD - 09/12/2010 MRA BRAIN, NONCONTRAST DATE: 09/12/2010. INDICATION: Left facial droop. TECHNIQUE: 3-D ldpt-fy-zkexpg nonenhanced brain MRA with 3-D reformations. FINDINGS: [...] significant intracranial large arterial findings. 2. Incomplete [place], incidental finding. Louis Rosario MD MR ORDERABLES * VAS CAROTID DUPLEX BILATERAL (09/12/2010 8:38 AM CDT) Anatomical Region Laterality Modality Ultrasound 09/12/2010 Narrative Procedure Note Louis Delatorre MD - 09/13/2010 4:18 PM CDT [place] [address] Vascular Laboratory PATIENT NAME: POLA TURNER [facility]#: [id number] AGE: 49ACCT#: [id number] ADMIT: 09/11/2010DOB: 1960 DATE: 09/12/2010ROOM#: [id number] REFERRING PHYSICIAN: EXAMINATION: Carotid artery duplex exam. [...] POLA TURNER DICTATOR:LOUIS DELATORRE M.D. DICTATED FOR: [facility]/[id number] JOB ID: [id number] Vascular Laboratory José Ashton MD VASCULAR LAB ORDERAB LES * B-TYPE NATRIURETIC PEPTIDE - POINT OF CARE (09/11/2010 1:18 PM CDT) [facility] BNP POCT 5.0 <=100 pg/ml [facility] Performed by [facility] Performed In ER [facility] BLOOD SPECIMEN / Unknown 09/11/2010 1:18 PM CDT 09/11/2010 1:24 PM CDT Er LAB - POINT OF CARE ORDERABLES Performing Organization Address [facility] Co de Phone Number [facility] [address] [place] [id number] * MYOGLOBIN BLOOD - POINT OF CARE (09/11/2010 1:18 PM CDT) [facility] Myoglobin POCT 116 <=170 ng/ml [facility] Performed by [facility] Performed In ER [facility] BLOOD SPECIMEN / Unknown 09/11/2010 1:18 PM CDT 09/11/2010 1:24 PM CDT Er LAB - POINT OF CARE ORDERABLES Performing Organization Address [facility] Campus/[facility] Co de Phone Number [facility] [address] [place] [address] * TROPONIN - POINT OF CARE (09/11/2010 1:18 PM CDT) [facility] Troponin I POCT < 0.05 SEE BELOW ng/ml [facility] Comment: <0.05 Normal 0.05-0.39 Indeterminate >0.4 Abnormal Performed by ZW [facility] Performed In ER [facility] BLOOD SPECIMEN / Unknown 09/11/2010 1:18 PM CDT 09/11/2010 1:24 PM CDT Er LAB - POINT OF CARE ORDERABLES Performing Organization Address [facility] Co de Phone Number [facility] [address] [place] [address] * CKMB - POINT OF CARE (09/11/2010 1:18 PM CDT) CK-MB POCT 1.6 <=8.0 ng/ml [facility] Performed by [facility] Performed In ER [facility] BLOOD SPECIMEN / Unknown 09/11/2010 1:18 PM CDT 09/11/2010 1:24 PM CDT Er LAB - POINT OF CARE ORDERABLES Performing Organization Address [facility] Co de Phone Number [facility] [address] [place] [address] * HELICOBACTER PYLORI UREASE (07/31/2010 1:00 PM CDT) Helicobacter pylori Urease Initial Negative Negative [facility] Helicobacter pylori Urease Final Negative Negative [facility] GASTRIC ANTRAL BIOPSY SPECIMEN / Unknown 07/31/2010 1:00 PM CDT 07/31/2010 2:11 PM CDT Nikita Fraser MD LAB - MICROBIOLOGY O RDERABLES Performing Organization Address [facility] Co de Phone Number [facility] [address] [place] [address] * CT ANGIO ABDOMEN PELVIS (07/19/2010 12:26 [...] CERVICAL SPINE NON CONTRAST (02/23/2010 11:29 AM WHEEL TRUER) Anatomical Region Laterality Modality Spine Computed Tomogra phy 02/23/2010 12:0 9 PM WHEEL TRUER Impressions 02/23/2010 1:29 PM WHEEL TRUER Postsurgical changes posterior fusion at C1 and C2 levels as described with a portion of the two metallic wires in the spinal canal at the C2 level. Suspicious for a herniated disc at C3-C4 level centrally and off to the left and further evaluation is recommended. Narrative 02/23/2010 1:[address] cervical spine: HISTORY: Neck pain and [...] PM CDT Narrative Resulting Agency Comment [facility] [address] [phone] David Gonzalez MD LAB - CHEMISTRY RORY [place] Organization Address City/State/ZIP Co de Phone [...] ORDERABL ES * PROLACTIN (04/08/2008 9:33 AM WHEEL TRUER) Pathologist [facility] Prolactin 11.8 ng/mL [place] Comment: REFERENCE RANGE ADULT FEMALES: NON- 3.0-30.0 10.0-209.0 POSTMENOPAUSAL 2.0-20.0 Test Performed at: [place] [address] DEMARIO MIRANDA MD 04/08/2008 9:33 AM WHEEL TRUER 04/09/2008 6:20 AM WHEEL TRUER David Gonzalez MD LAB - CHEMISTRY RORY [place] Performing Organization Address [facility] de Phone Number [facility] [address] [place] [phone] * LH (04/08/2008 9:33 AM WHEEL TRUER) Pathologist [facility] LH 20.6 mIU/mL [place] Comment: REFERENCE RANGE FOLLICULAR PHASE 1.9- 12.5 MID-CYCLE PEAK 8.7- 76.3 LUTEAL PHASE 0.5- 16.9 POSTMENOPAUSAL 5.0- 52.3 Test Performed at: [employer] [facility] [place] [address] DEMARIO MIRANDA MD 04/08/2008 9:33 AM WHEEL TRUER 04/09/2008 6:20 AM WHEEL TRUER David Gonzalez MD LAB - CHEMISTRY RORY [place] Performing Organization Address City/[facility] Co de Phone Number [facility] [address] [place] [address] * FSH (04/08/2008 9:33 AM WHEEL TRUER) FSH 14.2 mIU/mL [place] Comment: REFERENCE RANGE FOLLICULAR PHASE 2.5-10.2 MID-CYCLE PEAK 3.1-17.7 LUTEAL PHASE 1.5- 9.1 POSTMENOPAUSAL 23.0-116.3 Test Performed at: [facility] [address] [place] [address] DEMARIO MIRANDA MD 04/08/2008 9:33 AM WHEEL TRUER 04/09/2008 6:20 AM WHEEL TRUER David Gonzalez MD LAB - CHEMISTRY RORY [place] Performing Organization Address [facility] Co de Phone Number [facility] [address] [place] [address] * TISSUE TRANSGLUTAMINASE AB IGA (01/25/2008 9:17 AM WHEEL TRUER) Only the most recent of2 resultswithin the time period is included. Pathologist [facility] TTG Antibody IgA <1 0 - 3 U/mL [facility] INSURANCE BILL Comment: Negative 0 - 3 Weak Positive 4 - 10 Positive >10 . Tissue Transglutaminase (tTG) has been identified as the endomysial antigen. Studies have demonstr- ated that endomysial IgA antibodies have over 99% specificity for gluten sensitive enteropathy. 01/25/2008 9:17 AM WHEEL TRUER 01/25/2008 5:16 PM WHEEL TRUER Narrative Resulting Agency Comment [facility] [phone] Nikita Fraser MD LAB - SEROLOGY ORDER RADHA [facility] INSURANCE BILL * CLOSTRIDIUM DIFF TOXIN B (01/12/2008 8:30 AM WHEEL TRUER) C difficile Toxin B [facility] INSURANCE BILL Comment: Negative No cytotoxin detected. Reference Range: Negative 01/12/2008 8:30 AM WHEEL TRUER 01/12/2008 9:36 PM WHEEL TRUER Narrative Resulting Agency Comment [facility] [address] [facility] [phone] Nikita Fraser MD LAB - MICROBIOLOGY O RDERABLES Performing Organization Address [facility] de Phone Number [facility] INSURANCE BILL * FECAL LEUKOCYTES (01/12/2008 8:30 AM WHEEL TRUER) White Blood Cells (WBC), Stool Final report [facility] INSURANCE BILL Comment:Reference Range: Non e Seen Result 1 [facility] INSURANCE BILL Comment:No white blood cells seen. 01/12/2008 8:30 AM WHEEL TRUER 01/12/2008 9:36 PM WHEEL TRUER Narrative Resulting Agency Comment [place] [phone] [facility] [phone] Nikita Fraser MD LAB - BODY FLUID ORD ERABLES Performing Organization Address [facility] Phone Number [facility] INSURANCE BILL * O+P CONVENTIONAL (01/12/2008 8:30 AM WHEEL TRUER) O+P Exam Final report [facility] INSURANCE BILL Comment: These results were obtained using wet preparation(s) and trichrome stained smear. This test does not include testing for Cryptosporidium parvum, Cyclospora, or Microsporidia. Result 1 [facility] INSURANCE BILL Comment:No ova, cysts, or pa rasites seen. 01/12/2008 8:30 AM WHEEL TRUER 01/12/2008 9:36 PM WHEEL TRUER Narrative Resulting Agency Comment [facility] [address] [facility] [phone] Nikita Fraser MD LAB - MICROBIOLOGY O RDERABLES Performing Organization Address [facility] Co de Phone Number [facility] INSURANCE BILL * GROSS + MICRO EXAM (12/22/2007 12:00 AM WHEEL TRUER) Only the most recent of2 resultswithin the [...] of diarrhea -- No pathologic diagnosis MM/na Fashion Journalist na Pathologist Kevin Lopez M.D. [place]. 12/23/2007 1019 <1> CPT code 13516 MISCELLANEOUS SAMPLE S / Unknown 12/22/2007 12/22/2007 3:39 PM WHEEL TRUER Historical Provider MD LAB - PATHOLOGY/C YTOLOGY ORDERABLES Care Teams Hand Shaker Relationship Specialty Start Date End Date Mercedes Collins MD [address] [place] [phone] PCP - General Internal Medicine 05/17/19 Mercedes Collins MD [address] [place] [phone] PCP - [facility] 02/16/23 Chucky Menendez MD [address] [place] [address] Public Policy Mediator Pulmonary Disease 09/20/15 Wade Zelaya Jr., MD [address] [place] [address] Rheumatology 12/01/16 Danielle Reina MD [address] [place] [phone] Orthopedic Surgery 12/01/16 Ramsey Barbosa MD [address] [address] Internal Medicine 10/29/22
--- OUTSIDE RECORDS SUMMARY | 2024-04-25 10:07 | XMS_ITS | Referral Summary ---
Author Organization [facility] Address [address] [facility] [place] [address] Care Team Providers Care Credit Professional Name Role Phone Chucky Menendez MD Unavailable [phone] Nathalie Guzman MD, Wade Lopes Unavailable [phone] Danielle Reina MD Unavailable [phone] Mercedes Collins MD Primary Care Provider [phone] Ramsey Barbosa MD Unavailable [phone] Mercedes Collins MD Unavailable [phone] Source Comments [facility],non-owned Affiliates and Associated Physician Practices is amultiple site organization consisting of ambulatory clinics and hospital sitesin [place], [place], [place] and [place]. This disclosure is being madepursuant to the Care Everywhere program and may not contain all information available regarding this patient. Last updated 17.[facility] Encounters Date Type Department Care Team Description 04/25/2024 Refill [facility] - Internal Medicine [address] [place] [phone] Mercedes Collins MD Refill Request 04/15/2024 Telephone [facility] Internal Medicine [address] [place] [phone] Mercedes Collins MD Appointment; Reminder Call; Pain Abdominal 04/14/[address] [phone] Mercedes Collins MD Update 03/24/[address] [phone] Mercedes Collins MD MEDICATION REFILL 03/08/[address] [phone] Mercedes Collins MD Refill Request 02/15/[address] [phone] Mercedes Collins MD Refill Request 02/05/[address] [phone] Mercedes Collins MD MEDICATION REFILL 02/03/2024 1:00 PM CHEMICAL COMPOUNDER Office Visit [address] [phone] Mercedes Collins MD Type 2 diabetes mellitus with diabetic neuropathy, without long-term current use of insulin (HCC) (Primary Dx); Rheumatoid arthritis involving multiple sites with positive rheumatoid factor (HCC); Rheumatoid arthritis involving multiple sites, unspecified whether rheumatoid factor present (HCC); Left foot pain; Postablative hypothyroidism; Mixed hyperlipidemia; Diabetes mellitus type 2 without retinopathy ([facility]); Primary hypertension; Chronic diastolic heart failure (HCC); Restrictive lung disease; BIJAN (obstructive sleep apnea); Chronic obstructive pulmonary disease, unspecified COPD type (HCC) 02/02/2024 Refill [facility] Internal Medicine [address] [place] [phone] Mercedes Collins MD Refill Request 01/26/2024 Refill [facility] - Internal Medicine [address] [phone] Mercedes Collins MD Refill Request from Last [...] 5 05/21/2023 Active Blood Glucose Monitoring Suppl (TradyoTouch Verio) w/Device KITIndications:Type 2 diabetes mellitus with diabetic neuropathy, without long-term current use of insulin ([facility]) Use 1 Each as directed 1 kit 05/21/2023 Active blood glucose (TradyoTouch Verio) test stripIndications:Ty pe 2 diabetes mellitus with diabetic neuropathy, without long-term current use of insulin ([facility]) Use 1 (one) strip as directed 50 strip 11 05/21/2023 Active ipratropium (Atrovent) 0.03 % nasal sprayIndications:Na ghulam congestion SPRAY 1-2 SPRAYS INTO EACH NOSTRIL 3 TIMES DAILY 30 mL 06/04/2023 Active fluticasone propionate (Flonase) 50 MCG/ACT nasal spray Pollok 1 (one) spray into each nostril 2 [...] 90 tablet 3 11/26/2023 Active nystatin (Mycostatin) 016123 UNIT/GM ointment Apply to vulva twice daily [...] 90 tablet 1 03/16/2024 Active HYDROcodone-acetami nophen ([place]) 5-325 MG tabletIndications:R heumatoid arthritis involving multiple [...] (AF LURIA, FLUZONE TRIVALENT; 6MO+) (IIV3) 12/30/2011,11/19/2010 CovMoya Okruga primary monoval ent 12+ yr 0.3mL Purple [...] Comments Blood Pressure 128/74 02/03/2024 1:14 PM CHEMICAL COMPOUNDER Pulse 102 02/03/2024 1:14 PM CHEMICAL COMPOUNDER Temperature 36.7 C (98.1 F) 02/03/2024 1:14 PM CHEMICAL COMPOUNDER Respiratory Rate 18 01/21/2023 4:54 PM CHEMICAL COMPOUNDER Oxygen Saturation 99% 02/03/2024 1:14 PM CHEMICAL COMPOUNDER Inhaled Oxygen Concentration 21% 07/18/2020 7 :57 AM CDT Weight 106.7 kg (235 lb 3.2 oz) 02/03/2024 1:14 PM CHEMICAL COMPOUNDER Height 175.3 cm (5' 9.02 ) 02/03/2024 1:14 PM CS T Body Mass Index 34.72 02/03/2024 1:14 PM CHEMICAL COMPOUNDER Functional Status Functional Status Response Date of [...] [facility] [address] [place] [phone] Mercedes Collins MD [address] [place] [phone] 12/01/2024 11:45 AM CDT Office Visit [facility] - CTC OPERATOR [address] [place] [phone] Peterson Nance MD [address] [place] [phone] Procedures Procedure Name Priority Date/Time Associated Diagnosis Comments HEMOGLOBIN A1C - POINT OF CARE (AMB) Routine 02/03/2024 1:15 PM CHEMICAL COMPOUNDER Type 2 diabetes mellitus with diabetic neuropathy, [...] P24 AG PANEL Routine 02/24/2020 8:11 AM CHEMICAL COMPOUNDER Screening for HIV (human immunodeficiency virus) ENDOSCOPY, COLON, SCREENING Routine 01/25/2016 9:18 AM CHEMICAL COMPOUNDER HEPATITIS C ANTIBODY Routine 11/30/2012 12:54 PM CDT Need for hepatitis C screening test from Last 3 Months or Most Recently Relevant to Health Maintenance Results * HEMOGLOBIN A1C - POINT OF CARE (HgbA1C) (02/03/2024 1:15 PM CHEMICAL COMPOUNDER) Hemoglobin A1c POCT 8.4 % [facility] Expiration Date 10/06/[address] [facility] [facility] Lot # [id number] [facility] QC Verified Yes Yes [facility] Blood BLOOD SPECIMEN / Unknown 02/03/2024 1:15 PM CHEMICAL COMPOUNDER Mercedes Collins MD LAB - POINT OF CARE ORDERABLES [facility] [address] [phone] * MICROALB/CREAT RATIO URINE RANDOM PANEL (10/17/2023 [...] Resulting Agency Comment Lab Testing performed at: [facility] [address] [facility] [phone] Mercedes Collins MD LAB - URINE CHEMISTR Y ORDERABLES [facility] INSURANCE BILL [address] [place] [address] * (ABNORMAL) COMPREHENSIVE METABOLIC PANEL (10/17/2023 10:25 [...] Resulting Agency Comment Lab Testing performed at: [facility] [address] [facility] [phone] Mercedes Collins MD LAB - CHEMISTRY RORY [place] [facility] INSURANCE BILL [address] [place] [address] * Mammo Bilat Screening W Hugo (10/13/2023 [...] detected Not detected 11/07/2020 5:01 PM CDT [facility] High Risk Human Papilloma Interp 11/07/2020 5:01 PM CDT [facility] Comment:High Risk Human Dev lloma Virus was Not Detected. Pathology/Cytolo gy MISCELLANEOUS SAMPLES / Unknown 11/02/2020 2:27 PM CDT 11/05/2020 12:05 PM CDT Narrative [facility] - 11/07/2020 5:01 PM [...] Nance MD LAB - MICROBIOLOGY Chauncey GRAMAJO [facility] [address] [phone] * HIV-1 HIV-2 ANTIBODY + HIV P24 AG PANEL (02/24/2020 8:11 AM CHEMICAL COMPOUNDER) Pathologist [facility] HIV Screen 4th Generation w Reflex Non Reactive Non Reactive [facility] INSURANCE BILL Blood BLOOD SPECIMEN / Unknown 02/24/2020 8:11 AM CHEMICAL COMPOUNDER 02/24/2020 Narrative Resulting Agency Comment Lab Testing performed at: [facility] [address] [facility] [phone] Mercedes Collins MD LAB - CHEMISTRY RORY [place] [facility] INSURANCE BILL [address] [place] [address] * ENDOSCOPY, COLON, SCREENING (01/25/2016 9:18 AM CHEMICAL COMPOUNDER) Report Endoscopy POC _ Patient Name: Pola [...] colon cancer. Procedure Code(s): --- Professional --- 30606, Colonoscopy, flexible; diagnostic, including collection of specimen(s) by brushing or washing, when performed (separate procedure) --- Technical --- 86130, Colonoscopy, flexible; diagnostic, including collection of specimen(s) [...] or abscess without bleeding CPT copyright 2015 [employer]. All rights reserved. The codes documented in this report are preliminary and upon medical office technician review may be revised to meet current compliance requirements. Nikita Fraser MD 01/25/2016 9:58:01 AM This report has been signed electronically. Number of Addenda: 0 Note Initiated On: 01/25/2016 9:18 AM [facility] ENDOSCOPY 01/25/2016 9:18 AM CHEMICAL COMPOUNDER Nikita Fraser MD GI PROCEDURE ORDERAB LES [facility] ENDOSCOPY * HEPATITIS C ANTIBODY (11/30/2012 12:54 [...] a more specific supplemental or PCR testing. [facility] HCV Ab w/Reflex to Verification test #[id number]. Blood specimen (specimen) BLOOD SPECIMEN / Unknown 11/30/2012 12:54 PM CDT 11/30/2012 7:02 PM CDT Narrative Resulting Agency Comment [address] [phone] José Ashton MD LAB - CHEMISTRY [facility] [place] [facility] from Last 3 Months or Most Recently Relevant to Health Maintenance Advance Directives Documents on File Type Date Recorded Patient Dehydration Plant Operator Expl anation Adv Directive/Living Will/POA 02/20/2013 9:49 [...] 5:18 PM 2010 11:41 PM Care Teams Credit Professional Relationship Specialty Start Date End Date Mercedes Collins MD [address] [place] [phone] PCP - General Internal Medicine 05/17/19 Mercedes Collins MD [address] [place] [phone] PCP - Attributed-[facility] 02/16/23 Chucky Menendez MD [address] [place] [address] Welfare Manager Pulmonary Disease 09/20/15 Wade Zelaya Jr., MD [address] [place] [address] Rheumatology 12/01/16 Danielle Reina MD [address] [place], [place] [phone] Orthopedic Surgery 12/01/16 Ramsey Barbosa MD [address] [address] Internal Medicine 10/29/22
--- OUTSIDE RECORDS SUMMARY | 2024-04-25 10:08 | XMS_ITS | Encounter Summary ---
Author Organization [facility] Address [address] [facility] [address] Care Team Providers Care Hematology Nurse Educator Name Role Phone Chucky Menendez MD Unavailable [phone] Nathalie Guzman MD, Wade Lopes Unavailable [phone] Danielle Reina MD Unavailable [phone] Mercedes Collins MD Primary Care Provider Ramsey Barbosa MD Unavailable [phone] Mercedes Collins MD Unavailable [phone] Reason for Visit * Reason Comments Refill Request Encounter Details Date Type Department Care Team (Late st Contact Info) Description 04/25/2024 Refill [facility] - Internal Medicine [facility] [address] [place] [phone] Mercedes Collins MD [address] [place] [phone] Refill Request Social History Tobacco Use Types Packs/Day Years [...] No 07/16/2020 documented as of this encounter Plan of Treatment Upcoming Encounters Date Type Department Care Team (Late st Contact Info) Description 06/07/2024 1:20 PM CDT Office Visit [facility] - Internal Medicine [address] [place] [phone] Mercedes Collins MD [address] [place] [phone] 12/01/2024 11:45 AM CDT Office Visit [facility] - POLISH COMPOUNDER [address] [place] [phone] Peterson Nance MD [address] [place] [phone] documented as of this encounter Visit Diagnoses Diagnosis Chronic diastolic heart failure (HCC) Chronic diastolic heart failure documented in this encounter Care Teams Hematology Nurse Educator Relationship Specialty Start Date End Date Mercedes Collins MD [address] [place] [phone] PCP - General Internal Medicine 05/17/19 Mercedes Collins MD [address] [place] [phone] PCP - Attributed-[place] 02/16/23 Chucky Menendez MD [address] [place] [address] [address] [place] [address] Vice President For Philanthropy Pulmonary Disease 09/20/15 Wade Zelaya Jr., MD [address] [place] [address] [address] [place] [address] Rheumatology 12/01/16 [place] [address] [place] [phone] Orthopedic Surgery 12/01/16 [place] [address] [place] [address] Internal Medicine 10/29/22 documented as of this encounter
--- OUTSIDE RECORDS SUMMARY | 2024-04-25 10:08 | XMS_ITS | Encounter Summary ---
Author Organization [facility] Address [address] [place] [address] Care Team Providers Care Emissions Engineer Name Role Phone Chucky Menendez MD Unavailable [phone] Nathalie Guzman MD, Wade Lopes Unavailable [phone] Danielle Reina MD Unavailable [phone] Mercedes Collins MD Primary Care Provider Ramsey Barbosa MD Unavailable [phone] Mercedes Collins MD Unavailable [phone] Reason for Visit * Reason Onset Date Comments Update 04/14/2024 Encounter Details Date Type Department Care Team (Late st Contact Info) Description 04/14/2024 Telephone [facility] - Internal Medicine [address] [facility] [address] [place] [phone] Mercedes Collins MD [address] [place] [phone] Update Social History Tobacco Use Types [...] wanted to faint. Patient was taken to [facility] to be examined. Expected Response from the Clinic? ( ex. Call back, etc..) [phone] Did you notify caller it would take 24-48 hours for the office to get back to them? YES [facility] PARTNER documented in this encounter Plan of Treatment Upcoming Encounters Date Type Department Care Team (Late st Contact Info) Description 06/07/2024 1:20 PM CDT Office Visit [facility] - Internal Medicine [facility] [facility] [address] [place] [phone] Mercedes Collins MD [address] [place] [phone] 12/01/2024 11:45 AM CDT Office Visit [facility] - TRAFFIC RATE COMPUTER [address] [facility] [address] [place] [phone] Peterson Nance MD [address] [facility] [address] [place] [address] documented as of this encounter Visit Diagnoses Not on filedocumented in this encounter Care Teams Emissions Engineer Relationship Specialty Start Date End Date Mercedes Collins MD [facility] [address] [place] [phone] PCP - General Internal Medicine 05/17/19 Mercedes Collins MD [address] [place] [address] [address] [place] [phone] PCP - Attributed-[place] 02/16/23 Chucky Menendez MD [address] [place] [address] [address] [place] [address] Engraver Block Pulmonary Disease 09/20/15 Wade Zelaya Jr., MD [address] [place] [address] [address] [place] [address] Rheumatology 12/01/16 [place] [address] [place] [phone] Orthopedic Surgery 12/01/16 Ramsey Barbosa MD [address] [address] Internal Medicine 10/29/22 documented as of this encounter
--- OUTSIDE RECORDS SUMMARY | 2024-04-25 10:08 | XMS_ITS | Encounter Summary ---
Author Organization [facility] Address [address] [facility] [place] [address] Care Team Providers Care Icebox Man Name Role Phone José Ashton MD Primary Care Provider [phone] Marcos Banks MD Unavailable [phone] Krish Woodard MD Unavailable Unavailable Chucky Menendez MD Unavailable [phone] Agata Castro MD Primary Care Provider [phone] Agata Castro MD Unavailable [phone] Mercedes Collins MD Primary Care Provider [phone] Nathalie Guzman MD, Richard D Unavailable [phone] Danielle Reina MD Unavailable + [phone] Mercedes Collins MD Unavailable [phone] Mercedes Collins MD Primary Care Provider [phone] Carlota Hyman DIRECTOR GLOBAL MARKET RESEARCH-ASSEMBLER CHASSIS Unavailable [phone] Mercedes Collins MD Unavailable [phone] Carlota Hyman DIRECTOR GLOBAL MARKET RESEARCH-ASSEMBLER CHASSIS Unavailable + [phone] Mercedes Collins MD Unavailable [phone] Ladan Acosta RN Unavailable Ramsey Barbosa MD Unavailable [phone] Mercedes Collins MD Unavailable [phone] JarrettjessieStacey colin Unavailable Krish Woodard MD Unavailable Unavailable Encounter Details Date Type Department Care Team ([facility] Contact Info) Description 02/04/2013 [facility] Outpatient Visit EXTERNAL NON-SS DEPT Marcos Banks MD [facility] [address] [place] [address] Social History Tobacco Use Types Packs/Day Years [...] Description 06/07/2024 1:20 PM CDT Office Visit [facility] - Internal Medicine [address] [place] [address] [address] [place] [phone] Mercedes Collins MD [address] [place] [address] [address] [place] [address] 12/01/2024 11:45 AM CDT Office Visit [facility] - RACE RELATIONS ADVISER [address] [place] [address] [address] [place] [phone] Peterson Nance MD [address] [place] [id number] documented as of this encounter Visit Diagnoses Not on filedocumented in this encounter Additional Health Concerns Infection Onset Date Last Indicated Resolved Time COVID-19 Under Investigation 06/18/2020 06/18/2020 06/19/2020 6:11 AM CDT COVID-19 Confirmed 06/18/2020 06/18/2020 4:33 AM CDT COVID-19 Under Investigation 07/15/2020 07/15/2020 07/15/2020 6:50 AM CDT COVID-19 Under Investigation 01/21/2023 01/21/2023 01/21/2023 6:24 PM IT SOLUTIONS ARCHITECT documented as of this encounter Care Teams Icebox Man Relationship Specialty Start Date End Date José Ashton MD [address] [facility] [address] [place] [phone] PCP - General 09/11/10 03/27/13 [place] [address] [place] [address] [address] [place], [place] [id number] PCP - General Family Medicine 09/17/16 11/30/16 Mercedes Collins MD [address] [place] [address] [address] [place] [address] PCP - General Internal Medicine 12/01/16 05/16/19 Mercedes Collins MD [address] [place] [address] [address] [place] [address] PCP - Attributed-MSSP 07/17/18 09/15/20 Mercedes Collins MD [address] [place], [place] [address] [address] [place] [address] PCP - General Internal Medicine 05/17/19 Carlota Hyman, DIRECTOR GLOBAL MARKET RESEARCH-ASSEMBLER CHASSIS [address] [facility] [address] [place] [address] PCP - Attributed-MSSP 09/16/20 10/16/20 Mercedes Collins MD [address] [place] [address] PCP - Attributed-MSSP 10/17/20 04/15/21 Carlota Hyman, DIRECTOR GLOBAL MARKET RESEARCH-ASSEMBLER CHASSIS [address] [place] [address] PCP - Attributed-MSSP 04/16/21 06/15/21 Mercedes Collins MD [address] [place] [address] PCP - Attributed-MSSP 06/16/21 08/11/23 Mercedes Collins MD [address] [place] [address] PCP - Attributed-Coventry MA 02/16/23 Krish Woodard MD PCP - Attributed-MSSP 04/16/18 07/16/18 Marocs Banks MD [address] [place] [address] Cardiology 09/29/13 10/28/22 Krish Woodard MD [address] [place] [address] Pulmonary Disease 09/29/13 09/19/15 Chucky Menendez MD [address] [place] [address] [address] [place], [place] [id number] Spd Manager Pulmonary Disease 09/20/15 Agata Castro MD [address] [place] [address] [address] [place], [place] [id number] Referring Physician Family Medicine 09/17/16 11/09/18 Wade Zelaya Jr., MD [address] [facility] [address] [place] [address] Rheumatology 12/01/16 Danielle Reina MD [address] [facility], [address] Orthopedic Surgery 12/01/16 Ladan Acosta, ABHILASH Machine Steak TenderizerRetail Sales Consultant 07/23/22 08/14/22 Ramsey Barbosa MD [address] [facility] [address] [place] [address] Internal Medicine 10/29/22 Stacey Michelle [address] [facility] [address] [place] [address] Care Coordination Specialist Care Management 09/29/23 11/13/23 documented as of this encounter
--- OUTSIDE RECORDS SUMMARY | 2024-04-25 10:08 | XMS_ITS | Continuity of Care Document ---
Author Organization [facility] Address [address] [place] [address] Phone Care Team Providers Care Yard Jacker Name Role Phone Ivon LAM, Tre Osborn Unavailab le Allergies, Adverse Reactions, Alerts Substance Reaction Status Criticality leflunomide GI Problems(severe) Active No Infor mation Nsisqvw-CVZ-XhA Reductase Inhibitors myalgias(moderate ) Active No Information [...] the evening meal 20 MG - Active hydrocodone 5 mg-acetaminophen 325 mg tablet take 1 tablet by oral route every 8 hours as needed for pain 1 tablet - Active Do not fill till October 22, 2016 fluticasone 50 mcg/actuation nasal spray,suspension spray 1 spray by intranasal route every day in each nostril - Active Astepro 0.15 % (205.5 mcg) nasal spray spray 1 spray by intranasal route 2 times every day in each nostril - Active OneTouch Ultra Test strips USE ONE STRIP [...] route every week 25 MG - Active folic acid 1 mg tablet take 1 tablet by oral route every day 1 MG - Active isosorbide mononitrate ER 30 mg tablet,extended release 24 hr take 1 tablet by oral route every day in the morning 30 MG - Active fexofenadine 180 mg tablet take 1 tablet by oral route every morning as needed 180 MG - Active Vitamin D3 5,000 unit tablet take 1 Tablet by Oral route once 1 Tablet - Active Women's 50+ Daily Formula 400 mcg-120 mg tablet - Active Os-Luis 500 + D 500 mg (1,250 mg)-600 unit tablet take 1 Tablet by Oral route 2 times every day TAKE WITH FOOD 1 Tablet - Active Xeljanz 5 mg tablet take 1 tablet by oral route 2 times every day 5 MG - Active Advance Directives Directive Yes / No Effective Date File Name No Information Encounters Encounter Description Practice Location Reason(s) For Visit Diagnoses Date Provider Providers Copied on Encounter [facility], [address], [place], [place], [address] , tel: [phone] [facility] No Information 8 Ivon Toledo. [address], [id number], . tel:[phone] [facility], [address], [place], [place], [address] , tel: [phone] [facility] No Information 7 Frank Gonzalez. [address] [facility], [place] [address], [place], [place], [address], . tel:[phone] [facility], [address], [place], [place], [address] , tel: [phone] [facility] No Information 7 Ivon Toledo. [address], [id number], [place]. [phone] [facility], [address], [place], [place], [address] , tel: [phone] [facility] No Information 7 Ivon Toledo. [address], [id number], [place]. [phone] [facility], [address], [place], [place], [address] , tel: [phone] [facility] No Information 7 Ivon Toledo. [address], [facility] [address], [place], [place], [address], [place]. tel:[phone] [facility], [address], [place], [place], [address] , [place] tel: [phone] [facility] No Information 7 Mary Ann Threats Shabana. [address], [facility] 107, [place], [place], [address]. tel:[phone] [facility], [address], [place], [place], [address] , [place] tel: [phone] [facility] Hypothyroidism (acquired)Diabetic polyneuropathy associated with type 2 diabetes mellitusChronic diastolic (congestive) heart failureRecurrent pulmonary embolismRheumatoid arthritis involving multiple sites with positive rheumatoid factor Frank Gonzalez. [address] [facility], [address], [place], [place], [address], [place]. tel: [phone] Referring Provider: Tre Del Valle , [address] [place] [address], [place], [address] . tel:[phone] [facility], [address], [place], [place], [address] , [place] tel: [phone] [facility] No Information 7 Mary Ann Threats Shabana. [facility]7 [facility] 107, [place], [place], [address]. tel:[phone] [facility], [address], [place], [address] , [place] tel: [phone] [facility] No Information 7 [place] Threats Shabana. [address] [place] [address], [facility] 107, [place], [place], [address]. tel:[phone] [facility], [address], [place], [place], [address] , [place] tel: [phone] [facility] URI, acuteUnspecified asthma, uncomplicatedCough 7 Jazmin Nicole. [address], [address], [place], [place], [address], [place]. tel:[phone] Referring Provider: Shabana Maurer, [address], [place], [address] . tel:[phone] [facility], [address], [place], [place], [address] , [place] tel: [phone] [facility] No Information 2 7 Chicagokierra Donald. [address], [address], [place], [place], [address]. tel:[phone] [facility], [address], [place], [place], [address] , [place] tel: [phone] [facility] No Information 0 7 [place]agokierra Donald. [address], [facility] 107, [place], [place], [address]. tel:[phone] [facility], [address], [place], [place], [address] , [place] tel: [phone] [facility] Recurrent pansinusitisRheumat oid arthritis flareRecurrent pulmonary embolismChronic diastolic (congestive) heart failureDiabetic polyneuropathy associated with type 2 diabetes mellitusHypothyroid ism (acquired)Long-term use of high-risk medication 7 Mary Annkierra Donald. [address], [facility] 107, [place], [place], [address]. tel:[phone] Referring Provider: Shabana Maurer, [address] [place] [address] [address], [place], [address] . tel:[phone] [facility], [address], [place], [place], [address] , [place] tel: [phone] [facility] ThrushAbdominal pain, left lower quadrantHematuria 6 Frank Gonzalez. [address], [address], [place], [place], [address], [place]. tel:[phone] Referring Provider: Shabana Maurer, [facility], [place], [address] . tel:[phone] [facility], [address], [place], [place], [address] , tel: [phone] [facility] Asthma exacerbationChronic diastolic (congestive) heart failureRecurrent pulmonary embolismRheumatoid arthritis flareDiabetic polyneuropathy associated with type 2 diabetes mellitus 6 [place] Threats Shabana. [address], [address], [place], [place], [address]. tel:[phone] Referring Provider: Shabana Maurer, [address] [place] [address] [address], [place], [address] . tel:[phone] [facility] [address], [place], [place], [address] , tel: [phone] [facility] Sciatica associated with disorder of lumbar spine, leftOther cervical disc displacement, high cervical regionRheumatoid arthritis, unspecifiedChronic diastolic heart failureDiabetic polyneuropathy associated with type 2 diabetes mellitusPharyngitis , unspecified etiology 6 Mary Ann Donald. [address] [place], [place] [address], [address], [place], [place], [address]. tel:[phone] Referring Provider: Shabana Maurer, [address] [place], [place] [address] [address], [place], [address] . tel:[phone] [facility] [address], [place], [place], [address] , [place] tel:[phone] [facility] Chronic diarrheaDiabetic polyneuropathy associated with type 2 diabetes mellitusRheumatoid arthritis, unspecified 6 Mary Ann Donald. [address], [address], [place], [place], [address]. tel:[phone] Referring Provider: Shabana Maurer, [facility] [address], [place], [address] . tel:[phone] [facility], [address], [place], [place], [address] , [place] tel: [phone] [facility] Diabetic polyneuropathy associated with type 2 diabetes mellitusChronic diastolic heart failureHypothyroidi sm (acquired) 6 Ivon Toledo. [address], [address], [place], [place], [address], [place]. tel:[phone] [facility], [address], [place], [place], [address] , [place] tel: [phone] [facility] Dysuria 6 Mary Ann Donald. [address], [address], [place], [place], [address]. tel:[phone] Referring Provider: Shabana Maurer, [address] [place] [address], [place], [address] . tel:[phone] [facility], [address], [place], [place], [address] , [place] tel: [phone] [facility] Rheumatoid arthritis involving multiple sites with positive rheumatoid factorOther cervical disc displacement, high cervical regionType 2 diabetes mellitus with diabetic neuropathy, unspecifiedOsteopor osis 6 Mary Ann Donald. [address], [address], [place], [place], [address]. tel:[phone] Referring Provider: Shabana Maurer, [facility], [place], [address] . tel:[phone] [facility], [address], [place], [place], [address] , [place] tel: [phone] [facility] Fatigue, unspecified type 5 Frank Gonzalez. [address], [address], [place], [place], [address], [place]. [phone] Referring Provider: Shabana Maurer, [facility], [place], [address] . tel:[phone] [facility], [address], [place], [place], [address] , [place] tel: [phone] [facility] Urgency of urination Sep-0 5 Mary Ann Donald. [address], [facility] 107, [place], [place], [address]. tel:[phone] [facility], [address], [place], [address] , [place] tel: [phone] [facility] ROUTINE MEDICAL EXAMScreening for depressionOther and unspecified angina pectorisOther pulmonary embolism and infarctionRheumatoi d ArthritisPrimary pulmonary hypertensionChronic diastolic heart failureDiabetes mellitus with neurological manifestations, type II or unspecified type, not stated as uncontrolledMononeu ritis of unspecified siteVitamin D deficiencyAnxietyOb structive sleep apnea 5 Mary Ann Donald. [address] [place] [address], [facility] 107, [place], [place], [address]. tel:[phone] Referring Provider: Shabana Maurer, [address] [place] [address], [place], [address] . tel:[phone] [facility], [address], [place], [place], [address] , [place] tel: [phone] [facility] GERD (gastroesophageal reflux disease)Rheumatoid ArthritisAllergic rhinitisDiabetic neuropathyPolyneuro huma in diabetes 0 5 Jazmin Nicole. [address] [place] [address], [place], [place], [address], [place]. tel:[phone] Referring Provider: Shabana Maurer, [address] [place] [address], [place], [address] . tel:[phone] [facility], [address], [place], [place], [address] , tel:[phone] [facility] Otitis mediaPharyngitis 2 5 Jazmin Nicole. [address] [place] [address], [place], [place], [address], [place]. tel:[phone] Referring Provider: Shabana Maurer, [address] [place] [address], [place], [address] . tel:[phone] [facility], [address], [place], [place], [address] , tel: [phone] [facility] No Information 5 Mary Ann Donald. [address], [facility] 107, [place], [place], [address]. tel:[phone] [facility], [address], [place], [place], [address] , [place] tel: [phone] [facility] AsthmaSinus infection 5 Jadon Roth. [facility]7 [facility] 107, [place], [place], [address], [place]. tel:[phone] Referring Provider: Shabana Maurer, [address] [place] [address], [place], [address] . tel:[phone] [facility], [address], [place], [place], [address] , [place] tel: [phone] [facility] Diabetic neuropathyPolyneuro huma in diabetesBenign hypertensive heart diseaseRheumatoid ArthritisHypothyroi dism (acquired)AnxietyAs thma 5 Frank Gonzalez. [address] [facility], [address], [place], [place], [address], [place]. tel:[phone] Referring Provider: Shabana Maurer, [address] [place] [address], [place], [address] . tel:[phone] [facility], [address], [place], [place], [address] , tel: [phone] [facility] Acute bronchitisDiabetic neuropathyAnxietyPo lyneuropathy in diabetes 4 Mary Ann Donald. [facility], [facility] 107, [place], [place], [address]. tel:[phone] Referring Provider: Shabana Maurer, [address] [place] [address] [address], [place], [address] . tel:[phone] [facility], [address], [place], [place], [address] , tel: [phone] [facility] Abnormal glucoseBenign hypertensive heart disease 4 Rolando Vela. [address] [place] [address], [address], [place], [place], [address]. tel:[phone] Referring Provider: Shabana Maurer, [address] [place] [address], [place], [address] . tel:[phone] [facility], [address], [place], [place], [address] , tel: [phone] [facility] Laceration of toe with foreign body with damage to nailThromboembolic disorderNEED FOR PROPHYLACTIC VACCINATION AND INOCULATION AGAINST TETANUS-DIPHTHERIA [TD] (DT) 4 Mary Ann Donald. [address] [place] [address], [address], [place], [place], [address]. tel:[phone] Referring Provider: Shabana Maurer, [address] [place] [address] [address], [place], [address] . tel:[phone] [facility], [address], [place], [place], [address] , [place] tel:[phone] [facility] Benign hypertensive heart diseasePulmonary EmbolusSleep Apnea, ObstructiveDiabetic neuropathyPolyneuro huma in diabetes 4 Mary Ann Donald. [address] [place] [address], [address], [place], [place], [address]. tel:[phone] Referring Provider: Shabana Maurer, [address] [place] [address] [address], [place], [address] . tel:[phone] [facility], [address], [place], [place], [address] , tel:[phone] [facility] Abnormal glucoseHypothyroidi sm (acquired)Rheumatoi d Arthritis 4 Mary Ann Donald. [facility], [facility] 107, [place], [place], [address]. tel:[phone] Referring Provider: Shabana Maurer, [address] [place] [address] 107, [place], [address] . tel:[phone] [facility], [address], [place], [place], [address] , tel: [phone] [facility] Esophageal spasmChest Pain, Unspecified 4 Jazmin Nicole. [address] [place] [address], [place] [address], [place], [place], [address], [place]. tel:[phone] Referring Provider: Shabana Maurer, [address] [place] [address], [place], [address] . tel:[phone] [facility], [address], [place], [place], [address] , [place] tel: [phone] [facility] Pulmonary EmbolusAnginaPulmon carlos Hypertension, SecondarySleep Apnea, ObstructiveRheumato id ArthritisDiastolic dysfunctionBenign hypertensive heart disease 4 Mary Ann Donald. [address] [place] [address], [facility] 107, [place], [place], [address]. tel:[phone] Referring Provider: Shabana Maurer, [address] [place] [address], [place], [address] . tel:[phone] [facility], [address], [place], [place], [address] , tel: [phone] [facility] Shortness of BreathChest Pain, UnspecifiedChest Tightness 4 Raymond Seaman. [facility], [facility] 107, [place], [place], [address], [place]. tel:[phone] Referring Provider: Shabana Maurer, [address] [place] [address] [address], [place], [address] . tel:[phone] [facility], [address], [place], [place], [address] , [place] tel:[phone] [facility] Rheumatoid Arthritis 4 Adelaida Lewis. [address] [place] [address], [place], [place], [address], [place]. tel:[phone] [facility], [address], [place], [place], [address] , [place] tel: [phone] [facility] DiarrheaRecurrent pulmonary embolismPulmonary Hypertension, SecondarySleep Apnea, ObstructiveAnginaRh eumatoid ArthritisArterial embolism and thrombosis of unspecifed artery 4 Mary Ann Donald. [address] [place] [address], [place], [place], [address]. tel:[phone] Referring Provider: Shabana Maurer, [address] [place] [address], [place], [address] . tel:[phone] [facility], [address], [place], [place], [address] , [place] tel: [phone] [facility] Abnormal glucose 3 Ivon Toledo. [address] [place] [address], [place], [place], [address], [place]. tel:[phone] [facility], [address], [place], [place], [address] , [place] tel: [phone] [facility] No Information 3 Mary Ann Donald. [address] [place] [address], [place], [place], [address]. tel:[phone] [facility], [address], [place], [place], [address] , [place] tel: [phone] [facility] Thromboembolic disorderHypothyroid ism (acquired)correction current use of systemic steroidsRheumatoid arthritisAsthmaObst ructive sleep apneaPulmonary hypertension 3 Mary Ann Donald. [address], [place], [place], [address]. tel:[phone] Referring Provider: Shabana Maurer, [address], [place], [address] . tel:[phone] Family History Family Member Type Diagnosis Age At Onset Problem (finding) Family history of premature coronary heart disease Problem (finding) Family history of Peripheral vascular disease Problem (finding) Family history of depre ssion Problem (finding) Family history of seizu re disorder Problem (finding) Family history of hyper tension Problem (finding) Family history of raise d blood lipids Problem (finding) Family history of osteo arthritis Problem (finding) Family history of alzhe markus's disease Problem (finding) Family history of coronary arteriosclerosis Problem (finding) Family history of Irritable bowel disease Problem (finding) Family history of Menta l illness Problem (finding) Family history of Diabe tobin mellitus Problem (finding) Family history of Obesi ty Problem (finding) Family history of Heari ng impairment Problem (finding) Family history of Renal disease Immunizations Vaccine Date Status Comments Td (adult) preservative free administered Source: New Immunization Record Payers Payer name Insurance type Covered democrat ID Authoriza tion(s) MEDICARE [id number] [employer] OPEN ACCESS I II III CI [id number] MEDICARE [id number] [employer] OPEN ACCESS I II III CI [id number] Social History Type Description Quantity Date Captured [...]
--- OUTSIDE RECORDS SUMMARY | 2024-04-25 10:08 | XMS_ITS | Encounter Summary ---
Author Organization [facility] Address [address] [place] [address] Care Team Providers Care Debeader Name Role Phone Marcos Banks MD Unavailable Chucky Menendez MD Unavailable [phone] Nathalie Guzman MD, Wade Lopes Unavailable [phone] Danielle Reina MD Unavailable [phone] Mercedes Collins MD Primary Care Provider Mercedes Collins MD Unavailable [phone] Carlota Hyman WATERSHED TENDER-SEWING TRIMMER Unavailable [phone] Mercedes Collins MD Unavailable [phone] Ladan Acosta RN Unavailable Ramsey Barbosa MD Unavailable Mercedes Collins MD Unavailable [phone] Stacey Michelle Unavailable Reason for Visit * Reason Onset Date Comments Pain Pelvic 12/17/2020 Encounter Details Date Type Department Care Team (Late st Contact Info) Description 12/17/2020 Telephone [facility] [address] [place] [address] Dominick Dodson MD [address] [place] [address] Pain Pelvic Social History Tobacco [...] She agrees to 345pm appt tomorrow at [facility]'s office. Directions given over the phone, but will send mychart msg. * Telephone Encounter - Radha Burden - 12/17/2020 2:37 PM CDT Patient called in- having severe pelvic pain- Thursday was unbearable- today is pretty bad 10/26 especially when voiding- Was given samples and wonders if this is the cause- Please call [phone] documented in this encounter Plan of Treatment Upcoming Encounters Date Type Department Care Team (Late st Contact Info) Description 06/07/2024 1:20 PM CDT Office Visit [facility] Medical [facility] - Internal Medicine [address] [facility] [address] [place] [address] Mercedes Collins MD [address] [place] [phone] 12/01/2024 11:45 AM CDT Office Visit [facility] - COTTAGE SUPERVISOR [address] [place] [phone] Peterson Nance MD [address] [place] [id number] documented as of this encounter Visit Diagnoses Not on filedocumented in this encounter Additional Health Concerns Infection Onset Date Last Indicated Resolved Time COVID-19 Under Investigation 01/21/2023 01/21/2023 01/21/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 documented as of this encounter Care Teams Debeader Relationship Specialty Start Date End Date Mercedes Collins MD [address] [place] [id number] PCP - General Internal Medicine 05/17/19 Mercedes Collins MD [address] [place] [phone] PCP - Attributed-MSSP 10/17/20 04/15/21 Carlota Hyman, WATERSHED TENDER-SEWING TRIMMER [address] [place] [address] [address] [place] [phone] PCP - Attributed-MSSP 04/16/21 06/15/21 [place] [address] [place] [address] [address] [place] [phone] PCP - Attributed-MSSP 06/16/21 08/11/23 Mercedes Collins MD [address] [place] [address] [address] [place] [phone] PCP - Attributed-Coventry MA 02/16/23 Marcos Banks MD [address] [facility] [address] [place], [place] [id number] Cardiology 09/29/13 10/28/22 Chucky Menendez MD [address] [place] [address] [address] [place] [address] Museum Preparator Pulmonary Disease 09/20/15 Wade Zelaya Jr., MD [address] [place] [address] [address] [place] [address] Rheumatology 12/01/16 Danielle Reina MD [address] [place] [address], [phone] Orthopedic Surgery 12/01/16 Ladan Acosta, ABHILASH Food Beverage AttendantDeck Specialist 07/23/22 08/14/22 Ramsey Barbosa MD [address] [facility] [address] [place] [address] Internal Medicine 10/29/22 Stacey Michelle [address] [id number] Care Coordination Specialist Care Management 09/29/23 11/13/23 documented as of this encounter
--- OUTSIDE RECORDS SUMMARY | 2024-04-25 10:08 | XMS_ITS | Clinical Summary ---
Author Organization [facility] Address [address] [place] [address] Care Team Providers Care Printer'S Assistant Name Role Phone Mercedes Collins MD Primary Care Provider + Andrzej Grimes OD Unavailable [phone] Ramsey Barbosa MD Unavailable [phone] Juana Leal RN Unavailable [phone] Allergies Active Allergy Reactions Criticality Noted Date Comments Ciprofloxacin Rash,Unknown,Diarrh ea,Urticaria High 09/10/2009 Leflunomide Unknown High 12/11/2015 Levofloxacin Other (See comments),Unknown Low 02/19/2009 Ruptured ligaments Lisinopril Other (See comments) Low 04/14/2024 Unsure of reaction, states was taken off for either diarrhea or swelling Simvastatin Other (See comments) Low 01/25/2016 Bone pain Bone pain Czqftgm-Txr-Fcw Reductase Inhibitors Muscle pain,Unknown Medium 05/18/2014 Medications blood glucose diagnostic strip 1 each 018 Active busPIRone (BUSPAR) 5 mg tabletIndications:G eneralized Anxiety Disorder 1 tablet (5 mg total) as needed 018 Active calcium carb/vit D3/minerals (CALCIUM-VITAMIN D ORAL) Take 600 mg by mouth daily Active HYDROcodone-acetami nophen (NORCO) 5-325 mg per tabletIndications:P ain as needed 0 018 Active levothyroxine (SYNTHROID, LEVOTHROID) 88 mcg tablet Take 1 tablet (88 mcg total) by mouth daily Active metFORMIN (GLUCOPHAGE) 500 mg tablet Take 1 tablet (500 mg total) by mouth 2 (two) times a day with meals Active multivitamin with minerals tablet Take 1 tablet by mouth daily Active nitroglycerin (NITROSTAT) 0.[address] 1 tablet (0.4 mg total) under the tongue every 5 (five) minutes as needed Active XARELTO 20 mg tablet daily Active ANORO ELLIPTA 62.5-25 mcg/actuation blister with device daily Active cholecalciferol (VITAMIN D-3) 2,000 unit tablet daily Active gabapentin (NEURONTIN) 300 mg capsule Take 1 capsule (300 mg total) by mouth as needed Active rosuvastatin (CRESTOR) 10 mg tablet Take 1 tablet (10 mg total) by mouth once a week Active collagenase (SANTYL) ointment Apply topically as needed Active fluticasone propionate (FLONASE) 50 mcg/actuation nasal spray INSTILL 1 SPRAY INTO EACH NOSTRIL 2 TIMES DAILY Active albuterol HFA (PROVENTIL HFA,VENTOLIN HFA,PROAIR HFA) 90 mcg/actuation inhaler Inhale 2 puffs every 6 (six) hours as needed Active pantoprazole DR (PROTONIX) 40 mg EC tabletIndications:T reatment of Non-Bleeding Gastric Disorder Take 1 tablet (40 mg total) by mouth daily 30 tablet 11 Active inFLIXimab (REMICADE) 100 mg injection Infuse 110 mL (1,100 mg total) into a venous catheter every 8 (eight) weeks Active furosemide (LASIX) 20 mg tablet Take 2 tablets (40 mg total) by mouth daily 60 tablet 11 Active cyclobenzaprine (FLEXERIL) 10 mg tabletIndications:S /P cervical spinal fusion PRN Active ammonium lactate (AMLACTIN) 12 % cream Active ketoconazole (NIZORAL) 2 % cream APPLY TO THE FEET AND TOES TWICE A DAY NEEDED. DO NOT APPLY BETWEEN THE TOES. 022 Active Gemtesa 75 mg tablet Active Stiolto Respimat 2.5-2.5 mcg/actuation inhaler as needed 023 Active folic acid (FOLVITE) 1 mg tabletIndications:R heumatoid arthritis involving multiple sites with positive rheumatoid factor (HCC) Take 1 tablet (1 mg total) by mouth daily 30 tablet 11 023 Active diclofenac sodium (VOLTAREN) 1 % gel Apply 4 g topically 4 (four) times a day Active ipratropium (ATROVENT) 21 mcg (0.03 %) nasal spray Administer 1-2 sprays into each nostril 3 (three) times a day Active predniSONE (DELTASONE) 5 mg tablet Take 1 tablet (5 mg) by mouth daily Active Jardiance 10 mg tablet TAKE 1 (ONE) TABLET BY MOUTH ONCE DAILY REASONS: TYPE 2 DIABETES Active verapamil SR (CALAN SR) 180 mg CR tabletIndications:P aroxysmal Supraventricular Tachycardia,hyperte nsion TAKE 2 TABLETS (360 MG TOTAL) BY MOUTH DAILY 180 tablet 3 Active OneTouch Delica Plus Lancet 33 gauge misc USE 1 EACH ONCE DAILY Active nystatin ointment Apply to vulva twice daily Active Januvia 100 mg tablet Take 1 tablet (100 mg total) by mouth daily Active predniSONE (DELTASONE) 1 mg tabletIndications:r heumatoid arthritis Take 4 tablets (4 mg) by mouth daily 120 tablet 5 025 2024 Active aluminum-magnesium hydroxide-simethico ne (MAALOX) suspension 200-200-20 mg/5 mL Take 15 mL by mouth 4 (four) times a day 354 mL 025 2024 Active pioglitazone (ACTOS) 15 mg tablet Take 1 tablet (15 mg total) by mouth daily Active spironolactone (ALDACTONE) 25 mg tablet TAKE 1/2 TABLET BY MOUTH EVERY DAY 45 tablet 3 Active spironolactone (ALDACTONE) 25 mg tablet TAKE 1/2 TABLET BY MOUTH EVERY DAY 45 tablet 3 024 2024 Discontinued Active Problems Problem Noted Date Diagnosed Date [...] HCV Assessment & Plan (04/19/2024 1:31 PM AUTOMATIC SPLICING MACHINE OPERATOR): No active inflammation, call if experiencing flare Assessment & Plan (04/17/2023 10:29 AM AUTOMATIC SPLICING MACHINE OPERATOR): Quiet both eyes (OU), RTC if experiencing flare Assessment & Plan (04/18/2022 12:13 PM AUTOMATIC SPLICING MACHINE OPERATOR): No sign of inflammation or sequelae from uveitis PLAN observe Diabetes mellitus type 2 without retinopathy 04/2022 Assessment & Plan (04/19/2024 1:31 PM AUTOMATIC SPLICING MACHINE OPERATOR): Pt ed. Stressed BG control (HbA1C<7) to reduce the risk for diabetic ocular complications. Lab Results Component Value Date HGBA1C 5.8 (H) 06/01/2015 Assessment & Plan (04/17/2023 10:29 AM AUTOMATIC SPLICING MACHINE OPERATOR): No retinopathy both eyes (OU). Pt ed. Stressed BG control (HbA1C<7) to reduce the risk for diabetic ocular complications. Lab Results Component Value Date HGBA1C 5.8 (H) 06/01/2015 Osteopenia 02/22/2022 Esophageal reflux 12/10/2021 Age-related cataract of both eyes 04/15/2021 Assessment & Plan (04/19/2024 1:31 PM AUTOMATIC SPLICING MACHINE OPERATOR): Not v/s, monitor Assessment & Plan (05/06/2023 9:14 AM CDT): Stable best-corrected visual acuity (BVA), monitor Release updated glasses Rx Assessment & Plan (04/15/2021 11:03 AM AUTOMATIC SPLICING MACHINE OPERATOR): She is not bothered, observe Right rotator cuff tear arthropathy 11/24/2020 Controlled substance agreement signed 11/20/2020 Current chronic use of systemic steroids 021 Chronic diastolic heart failure 09/02/2020 Overview (05/30/2021): TTE 07/18/20 with normal LVEF, evidence of diastolic dysfunction, no valvular abnormalities LH 2013 without significant disease Negative HANNA November 2020 proBNP = 10 in August 2020 History of uveitis 09/02/2020 Assessment & Plan (04/15/2021 11:02 AM AUTOMATIC SPLICING MACHINE OPERATOR): She has no active inflammation today. [...] Department Care Team Description 04/20/2024 Orders Only [facility] [address] [place] [address] Caryn Ruiz RN 04/19/2024 10:45 AM AUTOMATIC SPLICING MACHINE OPERATOR Office Visit [facility] Ophthalmology [address] 6th [address], [address] [facility] [place] [id number] Jennifer Mar, OD Bilateral chronic anterior uveitis (Primary Dx); Age-related cataract of both eyes; Diabetes mellitus type 2 without retinopathy (HCC) 04/18/2024 10:38 AM AUTOMATIC SPLICING MACHINE OPERATOR - 04/18/2024 11:59 PM AUTOMATIC SPLICING MACHINE OPERATOR Hospital Encounter [facility] [address] [place] [phone] Chronic pain of right ankle Discharge Disposition: Discharge to home or self care 04/18/2024 10:37 AM AUTOMATIC SPLICING MACHINE OPERATOR - 04/18/2024 11:59 PM AUTOMATIC SPLICING MACHINE OPERATOR Hospital Encounter [facility] [address] [place] [phone] Right foot pain Discharge Disposition: Discharge to home or self care 04/18/2024 10:20 AM AUTOMATIC SPLICING MACHINE OPERATOR - 04/18/2024 11:59 PM AUTOMATIC SPLICING MACHINE OPERATOR Hospital Encounter [facility] [address] [place] [phone] Left foot pain Discharge Disposition: Discharge to home or self care 04/18/2024 10:15 AM AUTOMATIC SPLICING MACHINE OPERATOR - 04/18/2024 11:59 PM AUTOMATIC SPLICING MACHINE OPERATOR Hospital Encounter [facility] [address] [place] [address] Left ankle pain, unspecified chronicity Discharge Disposition: Discharge to home or self care 04/18/2024 10:00 AM AUTOMATIC SPLICING MACHINE OPERATOR Office Visit [facility] Orthopaedic Surgery [id number] [place] [address] [address] [place] [address] Joy Dang NP Osteoarthritis of left ankle and foot (Primary Dx); Left foot pain; Left ankle pain, unspecified chronicity; Follow-up exam; Right foot pain; Chronic pain of right ankle; Osteoarthritis of right ankle and foot; Pes planovalgus; Crossover toe deformity of right foot 04/14/2024 5:19 PM AUTOMATIC SPLICING MACHINE OPERATOR - 04/14/2024 10:59 PM AUTOMATIC SPLICING MACHINE OPERATOR Emergency [facility] Emergency Department [address] [facility] [place] [phone] Garcia Louis MD PhD Abdominal pain (Primary Dx); Bloating Discharge Disposition: Discharge to home or self care 04/14/2024 1:30 PM AUTOMATIC SPLICING MACHINE OPERATOR Infusion [facility] [address] [place] [phone] High risk medication use (Primary Dx); Rheumatoid arthritis involving multiple sites with positive rheumatoid factor (HCC) 04/13/2024 11:45 AM AUTOMATIC SPLICING MACHINE OPERATOR Office Visit [facility] [place] [address] [place] [address] Seble Mejia MD Abnormal CT of the chest (Primary Dx); Chronic obstructive pulmonary disease, unspecified COPD type (HCC) 04/12/2024 Telephone [facility] [place] [phone] Gorge Cook, ABHILASH 03/24/2024 Orders Only [facility] [address] [place] [phone] Pancho Thapa RN 03/17/2024 2:54 PM AUTOMATIC SPLICING MACHINE OPERATOR - 03/17/2024 11:59 PM AUTOMATIC SPLICING MACHINE OPERATOR Hospital Encounter [facility] Respiratory Therapy [address] [place] [address] Abnormal PFT; Interstitial lung disease (HCC) Discharge Disposition: Discharge to home or self care 03/03/2024 9:30 AM AUTOMATIC SPLICING MACHINE OPERATOR Infusion [facility] Infusion Therapy [address] [place] [address] Medicine 5th [place] [address] [place] [address] Rheumatoid arthritis involving multiple sites with positive rheumatoid factor (HCC) (Primary Dx) 02/22/2024 Telephone [facility] Rheumatology [address] [facility] Medical Office Building [address] [place] [address] Bonnie Neri RMA Prior Auth (Orencia (abatecept)) 02/19/2024 11:07 AM AUTOMATIC SPLICING MACHINE OPERATOR - 02/19/2024 11:59 PM AUTOMATIC SPLICING MACHINE OPERATOR Hospital Encounter [facility] [address] [place] [address] Rheumatoid arthritis involving multiple sites with positive rheumatoid factor (HCC) Discharge Disposition: Discharge to home or self care 02/19/2024 10:55 AM AUTOMATIC SPLICING MACHINE OPERATOR Lab [facility] Endocrinology Metabolism and Lipid [address] [facility] [address] 5th [address] [place] [address] Rheumatoid arthritis involving multiple sites with positive rheumatoid factor (HCC) 02/19/2024 9:30 AM AUTOMATIC SPLICING MACHINE OPERATOR Office Visit [facility] Rheumatology [address] [facility] [address] 5[address] [place] [address] Jeremi López MD PhD Rheumatoid arthritis involving multiple sites with positive rheumatoid factor (HCC) (Primary Dx); Current chronic use of systemic steroids; Long-term use of infliximab; High risk medication use from Last 3 Months Surgical History Surgery Date Site/Laterality Comments RI LIG/TRNSXJ FLP TUBE ABDL/ VAG APPR UNI/BI Tubal Ligation - (Added by TW Conv) ARTHRODESIS Arthrodesis Cervical - (Added by TW Conv) RI CHOLECYSTECTOMY Cholecystectomy - (Added by Conv) SECTION 02/17/1996 - 02/15/1997 BACK SURGERY [...] on file Legal Sex Female 7:32 PM AUTOMATIC SPLICING MACHINE OPERATOR Gender Identity Not on file Sexual Orientation Not on file Obstetrics History Last Filed Vital Signs Vital Sign Reading Time Taken Comments Blood Pressure 132/97 04/14/2024 8:04 PM AUTOMATIC SPLICING MACHINE OPERATOR Pulse 80 04/14/2024 8:04 PM AUTOMATIC SPLICING MACHINE OPERATOR Temperature 36.4 C (97.5 F) 04/14/2024 3:02 PM AUTOMATIC SPLICING MACHINE OPERATOR Respiratory Rate 18 04/14/2024 8:04 PM AUTOMATIC SPLICING MACHINE OPERATOR Oxygen Saturation 99% 04/14/2024 8:04 PM AUTOMATIC SPLICING MACHINE OPERATOR Inhaled Oxygen Concentration - - Weight 106.6 kg (235 lb) 04/18/2024 10:20 AM AUTOMATIC SPLICING MACHINE OPERATOR Height 176.5 cm (5' 9.5 ) 04/18/2024 10:20 AM CS T Body Mass Index 34.21 04/18/2024 10:20 AM AUTOMATIC SPLICING MACHINE OPERATOR Plan of Treatment Health Maintenance Due [...] Additional history exists Lipid Panel 10/16/2024 10/17/2023, 06/2022, 12/15/2020, Additional history exists eGFR 04/14/2025 04/14/2024, 04/2024, 10/23/2023, Additional history exists Dilated Eye Exam 04/19/2025 04/19/2024, 02/2023, 04/18/2022, Additional history exists Hepatitis C Screening Completed 01/23/2017 Pneumococcal vaccine <65 Completed 06/27/2022, 12/17 Procedures Procedure Name Priority Date/Time Associated Diagnosis Comments XR FOOT RIGHT 3 OR MORE VIEWS Schedule Routine, Read Routine (OP Routine) 04/18/2024 10:48 AM AUTOMATIC SPLICING MACHINE OPERATOR Right foot pain XR FOOT LEFT 3 OR MORE VIEWS Schedule Routine, Read Routine (OP Routine) 04/18/2024 10:48 AM AUTOMATIC SPLICING MACHINE OPERATOR Left foot pain XR ANKLE LEFT 3 OR MORE VIEWS Schedule Routine, Read Routine (OP Routine) 04/18/2024 10:48 AM AUTOMATIC SPLICING MACHINE OPERATOR Left ankle pain, unspecified chronicity XR ANKLE RIGHT 3 OR MORE VIEWS Schedule Routine, Read Routine (OP Routine) 04/18/2024 10:48 AM AUTOMATIC SPLICING MACHINE OPERATOR Chronic pain of right ankle URINALYSIS AND REFLEX TO MICROSCOPIC STAT 04/14/2024 5:50 PM AUTOMATIC SPLICING MACHINE OPERATOR POCT GLUCOSE DEVICE Routine 04/14/2024 5 :39 PM AUTOMATIC SPLICING MACHINE OPERATOR TROPONIN I HIGH-SENSITIVITY 2-HOUR Timed 04/14/2024 5:31 PM AUTOMATIC SPLICING MACHINE OPERATOR ECG 12-LEAD STAT 04/14/2024 3:38 PM AUTOMATIC SPLICING MACHINE OPERATOR EGFR STAT 04/14/2024 3:25 PM AUTOMATIC SPLICING MACHINE OPERATOR DIFFERENTIAL AUTO STAT 04/14/2024 3:2 5 PM AUTOMATIC SPLICING MACHINE OPERATOR TROPONIN I HIGH-SENSITIVITY SERIES (BASELINE, 2HR, 4HR, 6HR) STAT 04/14/2024 3:25 PM AUTOMATIC SPLICING MACHINE OPERATOR LIPASE STAT 04/14/2024 3:25 PM AUTOMATIC SPLICING MACHINE OPERATOR COMPREHENSIVE METABOLIC PANEL STAT 04/14/2024 3:25 PM AUTOMATIC SPLICING MACHINE OPERATOR CBC WITH AUTO DIFFERENTIAL STAT 04/14/2024 3:25 PM AUTOMATIC SPLICING MACHINE OPERATOR POCT GLUCOSE DEVICE Routine 04/14/2024 3 :16 PM AUTOMATIC SPLICING MACHINE OPERATOR PULMONARY FUNCTION TEST (PFT) Routine 03/17/2024 3:55 PM AUTOMATIC SPLICING MACHINE OPERATOR Abnormal PFT Interstitial lung disease (HCC) IMMUNOGLOBULIN PROFILE Routine 02/19/2024 11:07 AM AUTOMATIC SPLICING MACHINE OPERATOR Rheumatoid arthritis involving multiple sites with positive rheumatoid factor (HCC) CRP (ACUTE PHASE) Routine 02/19/2024 11: 07 AM AUTOMATIC SPLICING MACHINE OPERATOR Rheumatoid arthritis involving multiple sites with positive rheumatoid factor (HCC) COMPREHENSIVE METABOLIC PANEL Routine 02/19/2024 11:07 AM AUTOMATIC SPLICING MACHINE OPERATOR Rheumatoid arthritis involving multiple sites with positive rheumatoid factor (HCC) CBC WITH AUTO DIFFERENTIAL Routine 02/19/2024 11:07 AM AUTOMATIC SPLICING MACHINE OPERATOR Rheumatoid arthritis involving multiple sites with positive rheumatoid factor (HCC) HEPATITIS C ANTIBODY Routine Gen Lab 01/23/2017 1:16 PM AUTOMATIC SPLICING MACHINE OPERATOR SCREENING MAMMOGRAM Routine 10/19/2012 1 2:46 PM CDT SERUM LIPID PANEL Routine 10/19/2012 12: 05 PM CDT from Last 3 Months or Most Recently Relevant to Health Maintenance Results * XR Foot Right 3+ View (04/18/2024 10:48 AM AUTOMATIC SPLICING MACHINE OPERATOR) Anatomical Region Laterality Modality Lower Extremities, Foot Right Computed Radiography 04/18/2024 3:07 PM AUTOMATIC SPLICING MACHINE OPERATOR Impressions 04/18/2024 6:19 PM AUTOMATIC SPLICING MACHINE OPERATOR 1. 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 2. Mild right mid and hindfoot osteoarthritis. Dictated by: Matthew Chapin MD PHD The radiology attending physician has personally reviewed this study, and had reviewed and/or edited this written report and agrees with it. Electronically signed by: MD Jesús Dubois 04/18/2024 6:19 PM AUTOMATIC SPLICING MACHINE OPERATOR EXAMINATION: 1. XR ANKLE LEFT 3+ [...] IMG XR PROCEDURES Final Result * XR Foot Left 3+ View (04/18/2024 10:48 AM AUTOMATIC SPLICING MACHINE OPERATOR) Anatomical Region Laterality Modality Lower Extremities, Foot Left Computed Radiography 04/18/2024 3:07 PM AUTOMATIC SPLICING MACHINE OPERATOR Impressions 04/18/2024 6:19 PM AUTOMATIC SPLICING MACHINE OPERATOR 1. 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 2. Mild right mid and hindfoot osteoarthritis. Dictated by: Matthew Chapin MD PHD The radiology attending physician has personally reviewed this study, and had reviewed and/or edited this written report and agrees with it. Electronically signed by: Kevin Hermosillo MD Narrative 04/18/2024 6:19 PM AUTOMATIC SPLICING MACHINE OPERATOR EXAMINATION: 1. XR ANKLE LEFT 3+ [...] Ankle Left 3+ View (04/18/2024 10:48 AM AUTOMATIC SPLICING MACHINE OPERATOR) Anatomical Region Laterality Modality Lower Extremities, Ankle Left Compute d Radiography 04/18/2024 3:07 PM AUTOMATIC SPLICING MACHINE OPERATOR Impressions 04/18/2024 6:19 PM AUTOMATIC SPLICING MACHINE OPERATOR 1. 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 2. Mild right mid and hindfoot osteoarthritis. Dictated by: Matthew Chapin MD PHD The radiology attending physician has personally reviewed this study, and had reviewed and/or edited this written report and agrees with it. Electronically signed by: Kevin Hermosillo MD Narrative 04/18/2024 6:19 PM AUTOMATIC SPLICING MACHINE OPERATOR EXAMINATION: 1. XR ANKLE LEFT 3+ [...] it. Electronically signed by: Kevin Hermosillo MD [facility] IM XR PROCEDURES Final Result * XR Ankle Right 3+ View (04/18/2024 10:48 AM AUTOMATIC SPLICING MACHINE OPERATOR) Anatomical Region Laterality Modality Lower Extremities, Ankle Right Compute d Radiography 04/18/2024 3:07 PM AUTOMATIC SPLICING MACHINE OPERATOR Impressions 04/18/2024 6:19 PM AUTOMATIC SPLICING MACHINE OPERATOR 1. 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 2. Mild right mid and hindfoot osteoarthritis. Dictated by: Matthew Chapin MD PHD The radiology attending physician has personally reviewed this study, and had reviewed and/or edited this written report and agrees with it. Electronically signed by: Kevin Hermosillo MD Narrative 04/18/2024 6:19 PM AUTOMATIC SPLICING MACHINE OPERATOR EXAMINATION: 1. XR ANKLE LEFT 3+ [...] signed by: Kevin Hermosillo MD Joy Dang PEDIATRIC ASSISTANT IMG XR PROCEDURES Final Result * Urinalysis reflex to microscopic (04/14/2024 5:50 PM AUTOMATIC SPLICING MACHINE OPERATOR) Color, ur Straw Yellow Clarity, ur Clear Clear [facility] Specific gravity, ur 1.006 1.003 - 1.030 [facility] pH, urine 7.0 [facility] Comment: Interpretive Data U rine pH is affected by diet, medications, systemic acid-base disturbances, and renal tubular function. pH may affect urinary stone formation. For example, urine pH below 6.0 may help reduce the tendency for calcium phosphate stones and pH greater than 6.0 may reduce the tendency for uric acid stone formation. Source: [place] [employer] Current Interpretive Data was last revised on 2017 Protein, ur ql Negative Negative [facility] Glucose, ur ql Negative Negative [facility] Ketones, ur Negative Negative [facility] Bilirubin, ur Negative Negative [facility] Blood, ur Negative Negative [facility] Urobilinogen, ur <2.0 <2.0 mg/dL [facility] Nitrite, ur Negative Negative [facility] Leukocyte esterase, ur Negative Negative [facility] UA reflex comment Reflex conditions for microscopic UA not met. [facility] Urine 04/14/2024 5:50 PM AUTOMATIC SPLICING MACHINE OPERATOR 04/14/2024 5:58 PM AUTOMATIC SPLICING MACHINE OPERATOR Garcia Louis MD PhD LAB URINE ORDERABLE S Final Result Performing Organization Address [facility] de Phone Number [facility] [place] [address] * POCT glucose (04/14/2024 5:39 PM AUTOMATIC SPLICING MACHINE OPERATOR) Glucose, POC 123 70 - 199 mg/dL Blood 04/14/2024 5:39 PM AUTOMATIC SPLICING MACHINE OPERATOR 04/14/2024 5:39 PM AUTOMATIC SPLICING MACHINE OPERATOR Notinfile Unknown LAB POCT ORDERABLES - DEVICE F inal Result Performing Organization Address [facility] [place] [address] * Troponin I high-sensitivity 2-hour (04/14/2024 5:31 PM AUTOMATIC SPLICING MACHINE OPERATOR) Trop I hs <4 <=17 ng/L Comment: Interpretive Data For further hscTnI resources including the diagnostic algorithm and an aid in interpretation, copy and paste this link: [email or web address]/show/[email or web address] Current Interpretive Data last revised 2019. Trop I hs delta 0 ng/L [facility] Trop I hs interp Insignificant [facility] Blood 04/14/2024 5:31 PM AUTOMATIC SPLICING MACHINE OPERATOR 04/14/2024 5:36 PM AUTOMATIC SPLICING MACHINE OPERATOR Angel Davison MD LAB BLOOD ORDERABLES F inal Result Performing Organization Address [facility] Co de Phone Number [facility] [place] [address] * ECG 12-LEAD (04/14/2024 3:38 PM AUTOMATIC SPLICING MACHINE OPERATOR) Narrative [facility] - 04/14/2024 3:38 PM AUTOMATIC SPLICING MACHINE OPERATOR Gabriel Gunn MD 04/14/2024 3:39 PM [...] (baseline, 2hr, 4hr, 6hr) (04/14/2024 3:25 PM AUTOMATIC SPLICING MACHINE OPERATOR) Pathologist [facility] Trop I hs <4 <=17 ng/L Comment: Interpretive Data For further hscTnI resources including the diagnostic algorithm and an aid in interpretation, copy and paste this link: [email or web address]/show/[email or web address] Current Interpretive Data last revised 2019. Blood 04/14/2024 3:25 PM AUTOMATIC SPLICING MACHINE OPERATOR 04/14/2024 3:50 PM AUTOMATIC SPLICING MACHINE OPERATOR us Garcia Louis MD PhD LAB BLOOD ORDERABLE S Final Result Performing Organization Address City/[facility]/ZIP Co de Phone Number [facility] [place] [address] * eGFR (04/14/2024 3:25 PM AUTOMATIC SPLICING MACHINE OPERATOR) Pathologist [facility] Department eGFR 89 >=60 mL/min/1. 73 m2 Comment: [...] last reviewed 2020. Blood 04/14/2024 3:25 PM AUTOMATIC SPLICING MACHINE OPERATOR 04/14/2024 3:50 PM AUTOMATIC SPLICING MACHINE OPERATOR us Garcia Louis MD PhD LAB BLOOD ORDERABLE S Final Result [facility] Department [place] [address] * Differential, auto (04/14/2024 3:25 PM AUTOMATIC SPLICING MACHINE OPERATOR) Pathologist [facility] Department Neutrophil abs 6.3 1.5 - 6.5 K/cumm Imm gran abs 0.1 0.0 - 0.1 K/cumm [facility] Lymphocyte abs 2.2 0.8 - 3.3 K/cumm [facility] Monocyte abs 0.5 0.2 - 0.8 K/cumm [facility] Eosinophil abs 0.1 0.0 - 0.5 K/cumm [facility] Basophil abs 0.0 0.0 - 0.1 K/cumm [facility] Neutrophil pct 68.8 % [facility] Comment: Interpretive Data Percent cell count reference ranges are not reported, since discordance with absolute values may lead to misinterpretation of CBC data. Current Interpretive Data was last revised on 2017. Imm gran pct 0.7 % [facility] Comment: Interpretive Data Percent cell count reference ranges are not reported, since discordance with absolute values may lead to misinterpretation of CBC data. Current Interpretive Data was last revised on 2017. Lymphocyte pct 23.7 % [facility] Comment: Interpretive Data Percent cell count reference ranges are not reported, since discordance with absolute values may lead to misinterpretation of CBC data. Current Interpretive Data was last revised on 2017. Monocyte pct 5.3 % [facility] Comment: Interpretive Data Percent cell count reference ranges are not reported, since discordance with absolute values may lead to misinterpretation of CBC data. Current Interpretive Data was last revised on 2017. Eosinophil pct 1.1 % [facility] Comment: Interpretive Data Percent cell count reference ranges are not reported, since discordance with absolute values may lead to misinterpretation of CBC data. Current Interpretive Data was last revised on 2017. Basophil pct 0.4 % [facility] Comment: Interpretive Data Percent cell count reference ranges are not reported, since discordance with absolute values may lead to misinterpretation of CBC data. Current Interpretive Data was last revised on 2017. Blood 04/14/2024 3:25 PM AUTOMATIC SPLICING MACHINE OPERATOR 04/14/2024 3:50 PM AUTOMATIC SPLICING MACHINE OPERATOR us Garcia Louis MD PhD LAB BLOOD ORDERABLE S Final Result [facility] Department [place] [address] * CBC with auto differential (04/14/2024 3:25 PM AUTOMATIC SPLICING MACHINE OPERATOR) WBC 9.1 3.8 - 9.9 K/cumm Hgb 12.9 11.9 - 15.5 g/dL [facility] Hct 39.0 35.6 - 45.5 % [facility] Plt 313 150 - 400 K/cumm [facility] MPV 9.5 9.1 - 12.3 fL [facility] RBC 4.55 3.90 - 5.20 M/cumm [facility] MCV 85.7 81.3 - 96.4 fL [facility] MCH 28.4 27.1 - 33.3 pg [facility] MCHC 33.1 32.3 - 35.7 g/dL [facility] RDW CV 12.6 11.1 - 14.9 % [facility] RDW SD 39.2 35.7 - 48.1 fL [facility] NRBC abs 0.00 0.00 - 0.01 K/cumm [facility] Blood Venous blood specimen / Unknown 04/14/2024 3:25 PM AUTOMATIC SPLICING MACHINE OPERATOR 04/14/2024 3:50 PM AUTOMATIC SPLICING MACHINE OPERATOR Garcia Louis MD PhD LAB BLOOD ORDERABLE S Final Result Performing Organization Address [facility] Co de Phone Number [facility] [employer] [address] * Lipase (04/14/2024 3:25 PM AUTOMATIC SPLICING MACHINE OPERATOR) [facility] [address] Lipase 22 10 - 99 Units/L Blood Venous blood specimen / Unknown 04/14/2024 3:25 PM AUTOMATIC SPLICING MACHINE OPERATOR 04/14/2024 3:50 PM AUTOMATIC SPLICING MACHINE OPERATOR Garcia Louis MD PhD LAB BLOOD ORDERABLE S Final Result Performing Organization Address City/[facility] de Phone Number [facility] Department [place] [employer] [address] * Comprehensive metabolic panel (04/14/2024 3:25 PM AUTOMATIC SPLICING MACHINE OPERATOR) [facility] [address] Sodium 137 135 - 145 mmol/L Potassium, pl 3.9 3.3 - 4.9 mmol/L [facility] Chloride 100 97 - 110 mmol/L [facility] CO2 25 22 - 32 mmol/L [facility] Anion gap 12 2 - 15 mmol/L [facility] BUN 10 6 - 25 mg/dL [facility] Creatinine 0.76 0.60 - 1.10 mg/dL [facility] Glucose 181 70 - 199 mg/dL [facility] Comment: Interpretive Data Fasting glucose >/= [...] 2022. Calcium 9.2 8.5 - 10.3 mg/dL [facility] Bilirubin, total 0.6 0.1 - 1.2 mg/dL [facility] Protein, pl 7.5 6.5 - 8.5 g/dL [facility] Albumin 3.8 3.5 - 5.0 g/dL [facility] Alk phos 74 40 - 130 Units/L [facility] ALT 34 7 - 45 Units/L [facility] AST 28 10 - 45 Units/L [facility] Blood 04/14/2024 3:25 PM AUTOMATIC SPLICING MACHINE OPERATOR 04/14/2024 3:50 PM AUTOMATIC SPLICING MACHINE OPERATOR us Garcia Louis MD PhD LAB BLOOD ORDERABLE S Final Result Performing Organization Address City/[facility]/ZIP Co de Phone Number [facility] Department [place] [employer] [address] * POCT glucose (04/14/2024 3:16 PM AUTOMATIC SPLICING MACHINE OPERATOR) [facility] [address] Glucose, POC 176 70 - 199 mg/dL Blood 04/14/2024 3:16 PM AUTOMATIC SPLICING MACHINE OPERATOR 04/14/2024 3:16 PM AUTOMATIC SPLICING MACHINE OPERATOR us Notinfile Unknown LAB POCT ORDERABLES - DEVICE F inal Result Performing Organization Address City/[facility]/ZIP Co de Phone Number [facility] Department [place] [address] * (ABNORMAL) Pulmonary Function Test - (03/17/2024 3:55 PM AUTOMATIC SPLICING MACHINE OPERATOR) FVC PRE 2.88 2.29 - 4.02 L [facility] FEV1 PRE 2.54 1.77 - 3.11 L [facility] [id number] 88.21 66.97 - 89.03 % [facility] [id number]% PRE 3.67 0.89 - 3.92 L/s [facility] PEF PRE 6.81 5.19 - 8.15 L/s [facility] DLCOc SB 18.54(A) 19.82 - 31.29 ml/(min*mm Hg) [facility] DLCO/VA PRE 4.85 3.17 - 5.67 ml/(min*mm Hg*L) [facility] VA 3.82(A) 5.63 - 5.63 L [facility] TLC PRE 4.38(A) 4.79 - 6.76 L [facility] VC PRE 2.88 2.71 - 4.09 L [facility] IC PRE 2.45(A) 2.58 - 2.58 L [facility] FRC PL PRE 1.94(A) 2.17 - 3.81 L [facility] ERV PRE 0.43(A) 0.82 - 0.82 L [facility] RV PRE 1.50(A) 1.59 - 2.74 L [facility] VTG 2.07 L [facility] RAW PRE 3.05(A) 3.06 - 3.06 cmH2O*s/L [facility] Anatomical Region Laterality Modality PFT 03/17/2024 3:06 PM AUTOMATIC SPLICING MACHINE OPERATOR Impressions 03/20/2024 8:37 PM AUTOMATIC SPLICING MACHINE OPERATOR 1. [id number] restrictive ventilatory limitation 2. Mild diffusion impairment 3. Ambulatory oximetry was performed and at this level of activity the patient did not require supplemental oxygen Electronically signed by Tristian Carrillo MD Pulmonary & Critical Care Narrative 03/20/2024 8:37 PM AUTOMATIC SPLICING MACHINE OPERATOR PULMONARY FUNCTION TESTS [place] 63 [...] * (ABNORMAL) Immunoglobulin profile (02/19/2024 11:07 AM AUTOMATIC SPLICING MACHINE OPERATOR) [facility] [address] Immunoglobulin G 1,598 700 - 1,600 mg/dL Immunoglobulin A 313 70 - 400 mg/dL [facility] Immunoglobulin M 245(H) 40 - 230 mg/dL [facility] Blood 02/19/2024 11:0 7 AM AUTOMATIC SPLICING MACHINE OPERATOR 02/19/2024 1:09 PM AUTOMATIC SPLICING MACHINE OPERATOR Jeremi López MD PhD LAB BLOOD ORDERABLE S Final Result [facility] Department [place] [address] * CBC with auto differential (02/19/2024 11:07 AM AUTOMATIC SPLICING MACHINE OPERATOR) [facility] [address] White Blood Count 7.8 3.6 - 11.2 [...] - [facility] Blood 02/19/2024 11:0 7 AM AUTOMATIC SPLICING MACHINE OPERATOR 02/19/2024 12:25 PM AUTOMATIC SPLICING MACHINE OPERATOR Intelledwin López MD PhD LAB BLOOD ORDERABLE S Final Result Performing Organization Address City/[facility] Co de Phone Number [facility] * (ABNORMAL) CRP (acute phase) (02/19/2024 11:07 AM AUTOMATIC SPLICING MACHINE OPERATOR) Pathologist [facility] C-Reactive Protein, Acute 5.8(H) <5.0 mg/L [facility] Blood 02/19/2024 11:0 7 AM AUTOMATIC SPLICING MACHINE OPERATOR 02/19/2024 12:25 PM AUTOMATIC SPLICING MACHINE OPERATOR GoChimeedwin López MD PhD LAB BLOOD ORDERABLE S Final Result Performing Organization Address City/State/[facility] Co de Phone Number [facility] * (ABNORMAL) Comprehensive metabolic panel (02/19/2024 11:07 AM AUTOMATIC SPLICING MACHINE OPERATOR) [facility] [address] Total Protein 7.7 6.1 - 8.4 g/dL [...] - [facility] Blood 02/19/2024 11:0 7 AM AUTOMATIC SPLICING MACHINE OPERATOR 02/19/2024 12:25 PM AUTOMATIC SPLICING MACHINE OPERATOR [facility] Cl[facility] MD PhD LAB BLOOD ORDERABLE S Final Result [facility] * Hepatitis C antibody (01/23/2017 1:16 PM AUTOMATIC SPLICING MACHINE OPERATOR) Hep C Ab Nonreactive Nonreactive [facility] Comment: Interpretive Data Positive and greyzone results should be confirmed by a molecular method. If positive or greyzone, a second separately collected sample should be submitted for Hepatitis C Virus RNA. Detection and Quantitation by Real-Time Reverse Heavy Coil Winder-PCR.Current Interpretive data was last revised on 2016. Blood specimen (specimen) 01/23/2017 1:16 PM AUTOMATIC SPLICING MACHINE OPERATOR 01/23/2017 4:49 PM AUTOMATIC SPLICING MACHINE OPERATOR Narrative [facility] - 01/24/2017 9:19 AM AUTOMATIC SPLICING MACHINE OPERATOR us Rocio Ellis MD LAB MICROBIOLOGY - GENERAL OR DERABLES Edited Result - Final [facility] Department [place] [address] * Screening Mammogram (10/19/2012 12:46 PM CDT) Anatomical Region Laterality Modality Breast N/A Mammography 10/19/2012 12:4 6 PM CDT Narrative 10/20/2012 1:30 PM CDT ANGELICA BYNUM M.D. FINAL REPORT ACC# Date Time Exam [id number] Oct 19, 2012 12:46:00 [facility] [id number] Screening Mamm Bilat Technologist(s): Dilia Gregg; ; EXAMINATION: Mammogram Findings: A Full-Field Digital Screening Mammogram was performed. Views obtained: bilateral craniocaudal; bilateral mediolateral oblique. Computer Aided Detection was performed with [employer].3 version 9.3. The present examination has been compared to prior imaging studies performed at [facility] on 10/06/2011, 03/05/2010 and 06/23/2008. The breasts [...] M.D. FINAL REPORT ACC# Date Time Exam [id number] Oct 19, 2012 12:46:00 [facility] [id number] Screening Mamm Bilat Technologist(s): Dilia Gregg; ; EXAMINATION: Mammogram Findings: A Full-Field Digital Screening Mammogram was performed. Views obtained: bilateral craniocaudal; bilateral mediolateral oblique. Computer Aided Detection was performed with [employer].3 version 9.3. The present examination has been compared to prior imaging studies performed at [facility] on 10/06/2011, 03/05/2010 and 06/23/2008. The breasts [...] 2011. Serum 10/19/2012 12:0 5 PM CDT us Michelle Wilkins MD LAB BLOOD ORDERABLES Final Resul t HISTORICAL RESULTS from Last 3 Months or Most Recently Relevant to Health [place] [address] [facility] [place] [address] MEDICARE [employer] OPEN ACCESS [facility] [id number] [employer] [address] [facility] [facility] [place] [address] [employer] MEDICARE FOR LIFE Care Teams Printer'S Assistant Relationship Specialty Start Date End Date Mercedes Collins MD [address] [facility] [address] [place] [address] PCP - General 06/25/17 Andrzej Grimes, OD [address] [place] [address] Referring Physician Ophthalmology 04/18/20 Ramsey Barbosa MD [address] [place] [address] [facility] 05/30/21 Juana Leal, RN [address] [facility] [address] [place] [address] Heart Failure Coordinator Sr. Pricing Analyst 05/30/21
--- OUTSIDE RECORDS SUMMARY | 2024-04-25 10:08 | XMS_ITS | Encounter Summary ---
Author Organization [facility] Healthcare Address [address] [place] [address] Care Team Providers Care Analysis Or Research Safety Inspector Name Role Phone Mercedes Collins MD Primary Care Provider + Andrzej Grimes OD Unavailable [phone] Ramsey Barbosa MD Unavailable [phone] Juana Leal RN Unavailable [phone] Encounter Details Date Type Department Care Team (Late st Contact Info) Description 04/20/2024 Orders Only [facility] [address] [facility] [address] [place] [id number] Caryn Ruiz, RN Social History Tobacco Use [...] on file Legal Sex Female 7:32 PM POWDERED SUGAR PULVERIZER OPERATOR Gender Identity Not on file Sexual Orientation Not on file documented as of this encounter Plan of Treatment Not on file documented as of this encounter Visit Diagnoses Not on filedocumented in this encounter Care Teams Analysis Or Research Safety Inspector Relationship Specialty Start Date End Date Mercedes Collins MD [address] [facility] [address] [place] [address] PCP - General 06/25/17 Andrzej Grimes, OD [address] [place] [address] Referring Physician Ophthalmology 04/18/20 Ramsey Barbosa MD [address] [place] [address] Manager Business Information Transplant 05/30/21 Juana Leal, RN [address] [facility] [address] [place] [address] Heart Failure Coordinator Light Adjuster 05/30/21 documented as of this encounter
--- OUTSIDE RECORDS SUMMARY | 2024-04-25 10:08 | XMS_ITS | Referral Summary ---
Author Organization [facility] Address [address] [place] [address] Care Team Providers Care Technical Engineer Name Role Phone Mercedes Collins MD Primary Care Provider + Andrzej Grimes OD Unavailable [phone] Ramsey Barbosa MD Unavailable Juana Leal RN Unavailable [phone] Encounters Date Type Department Care Team Description 04/20/2024 Orders Only [facility] [address] [place] [address] [address] [place] [address] Caryn Ruiz RN 04/19/2024 10:45 AM LABORATORY CLERK Office Visit [facility] Ophthalmology [address] [facility] 6th Floor, [address] [facility] [place] [place] [address] Jennifer Mar, OD Bilateral chronic anterior uveitis (Primary Dx); Age-related cataract of both eyes; Diabetes mellitus type 2 without retinopathy (HCC) 04/18/2024 10:38 AM LABORATORY CLERK - 04/18/2024 11:59 PM LABORATORY CLERK Hospital Encounter [facility] [address] [place] [phone] Chronic pain of right ankle Discharge Disposition: Discharge to home or self care 04/18/2024 10:37 AM LABORATORY CLERK - 04/18/2024 11:59 PM LABORATORY CLERK Hospital Encounter [facility] [address] [place] [phone] Right foot pain Discharge Disposition: Discharge to home or self care 04/18/2024 10:15 AM LABORATORY CLERK - 04/18/2024 11:59 PM LABORATORY CLERK Hospital Encounter [facility] [address] [place] [phone] Left ankle pain, unspecified chronicity Discharge Disposition: Discharge to home or self care 04/18/2024 10:20 AM LABORATORY CLERK - 04/18/2024 11:59 PM LABORATORY CLERK Hospital Encounter [facility] [address] [place] [address] Left foot pain Discharge Disposition: Discharge to home or self care 04/18/2024 10:00 AM LABORATORY CLERK Office Visit [facility] Orthopaedic Surgery [address] [place] [address] 2nd [address] [place] [address] Joy Dang NP Osteoarthritis of left ankle and foot (Primary Dx); Left foot pain; Left ankle pain, unspecified chronicity; Follow-up exam; Right foot pain; Chronic pain of right ankle; Osteoarthritis of right ankle and foot; Pes planovalgus; Crossover toe deformity of right foot 04/14/2024 5:19 PM LABORATORY CLERK - 04/14/2024 10:59 PM LABORATORY CLERK Emergency [facility] Emergency Department [address] [place] [address] Garcia Louis MD PhD Abdominal pain (Primary Dx); Bloating Discharge Disposition: Discharge to home or self care 04/14/2024 1:30 PM LABORATORY CLERK Infusion [facility] [address] [place] [phone] High risk medication use (Primary Dx); Rheumatoid arthritis involving multiple sites with positive rheumatoid factor (HCC) 04/13/2024 11:45 AM LABORATORY CLERK Office Visit [facility] Pulmonary [address] [place] [address] Seble Mejia MD Abnormal CT of the chest (Primary Dx); Chronic obstructive pulmonary disease, unspecified COPD type (HCC) 04/12/2024 Telephone [facility] [address] [place] [phone] Gorge Cook RN 03/24/2024 Orders Only [facility] [address] [place] [phone] Pancho Thapa RN 03/17/2024 2:54 PM LABORATORY CLERK - 03/17/2024 11:59 PM LABORATORY CLERK [facility] [address] [place] [address] Abnormal PFT; Interstitial lung disease (HCC) Discharge Disposition: Discharge to home or self care 03/03/2024 9:30 AM LABORATORY CLERK Infusion [facility] Infusion Therapy [facility] 5th [place] [address] [place] [phone] Rheumatoid arthritis involving multiple sites with positive rheumatoid factor (HCC) (Primary Dx) 02/22/2024 Telephone [facility] Rheumatology [address] [facility] [address] [place] [address] Bonnie Neri, DYLON Prior Auth (Orencia (abatecept)) 02/19/2024 11:07 AM LABORATORY CLERK - 02/19/2024 11:59 PM LABORATORY CLERK Hospital Encounter [facility] [address] [place], [place] [phone] Rheumatoid arthritis involving multiple sites with positive rheumatoid factor (HCC) Discharge Disposition: Discharge to home or self care 02/19/2024 10:55 AM LABORATORY CLERK Lab [facility] Endocrinology Metabolism and Lipid [address] [place] [address] 5th [place] [address] [place] [address] Rheumatoid arthritis involving multiple sites with positive rheumatoid factor (HCC) 02/19/2024 9:30 AM LABORATORY CLERK Office Visit [facility] Rheumatology [facility] 5th [place] [address] [place] [address] Jeremi López MD PhD Rheumatoid [...] comments) Low 01/25/2016 Bone pain Bone pain Uftkpts-Fuy-Bra Reductase Inhibitors Muscle pain,Unknown Medium 05/18/2014 Medications blood glucose diagnostic strip 1 each 018 Active busPIRone (BUSPAR) 5 mg tabletIndications:G eneralized Anxiety Disorder 1 tablet (5 mg total) as needed Active calcium carb/vit D3/minerals (CALCIUM-VITAMIN D ORAL) Take 600 mg by mouth daily Active HYDROcodone-acetami nophen (NORCO) 5-325 mg per tabletIndications:P ain as needed 0 018 Active levothyroxine (SYNTHROID, LEVOTHROID) 88 mcg tablet Take 1 tablet (88 mcg total) by mouth daily 017 Active metFORMIN (GLUCOPHAGE) 500 mg tablet Take 1 tablet (500 mg total) by mouth 2 (two) times a day with meals Active multivitamin with minerals tablet Take 1 tablet by mouth daily Active nitroglycerin (NITROSTAT) 0.[address] 1 tablet (0.4 mg total) under the tongue every 5 (five) minutes as needed Active XARELTO 20 mg tablet daily 018 Active ANORO ELLIPTA 62.5-25 mcg/actuation blister with device daily Active cholecalciferol (VITAMIN D-3) 2,000 unit tablet daily Active gabapentin (NEURONTIN) 300 mg capsule Take 1 capsule (300 mg total) by mouth as needed 019 Active rosuvastatin (CRESTOR) 10 mg tablet Take [...] NEEDED. DO NOT APPLY BETWEEN THE TOES. Active Gemtesa 75 mg tablet Active Stiolto Respimat 2.5-2.5 mcg/actuation inhaler as needed Active folic acid (FOLVITE) 1 mg tabletIndications:R heumatoid arthritis involving multiple sites with positive rheumatoid factor (HCC) Take 1 tablet (1 mg total) by mouth daily 30 tablet 11 Active diclofenac sodium (VOLTAREN) 1 % gel [...] TOTAL) BY MOUTH DAILY 180 tablet 3 024 Active OneTouch Delica Plus Lancet 33 gauge misc USE 1 EACH ONCE DAILY 024 Active nystatin ointment Apply to vulva twice daily 024 Active Januvia 100 mg tablet Take 1 tablet (100 mg total) by mouth daily 024 Active predniSONE (DELTASONE) 1 mg tabletIndications:r heumatoid arthritis Take 4 tablets (4 mg) by mouth daily 120 tablet 5 025 2024 Active aluminum-magnesium hydroxide-simethico ne (MAALOX) suspension 200-200-20 mg/5 mL Take 15 mL by mouth 4 (four) times a day 354 mL 025 2024 Active pioglitazone (ACTOS) 15 mg tablet Take 1 tablet (15 mg total) by mouth daily 025 Active spironolactone (ALDACTONE) 25 mg tablet TAKE 1/2 TABLET BY MOUTH EVERY DAY 45 tablet 3 025 Active spironolactone (ALDACTONE) 25 mg tablet TAKE [...] HCV Assessment & Plan (04/19/2024 1:31 PM LABORATORY CLERK): No active inflammation, call if experiencing flare Assessment & Plan (04/17/2023 10:29 AM LABORATORY CLERK): Quiet both eyes (OU), RTC if experiencing flare Assessment & Plan (04/18/2022 12:13 PM LABORATORY CLERK): No sign of inflammation or sequelae from uveitis PLAN observe Diabetes mellitus type 2 without retinopathy 04/2022 Assessment & Plan (04/19/2024 1:31 PM LABORATORY CLERK): Pt ed. Stressed BG control (HbA1C<7) to reduce the risk for diabetic ocular complications. Lab Results Component Value Date HGBA1C 5.8 (H) 06/01/2015 Assessment & Plan (04/17/2023 10:29 AM LABORATORY CLERK): No retinopathy both eyes (OU). Pt ed. Stressed BG control (HbA1C<7) to reduce the risk for diabetic ocular complications. Lab Results Component Value Date HGBA1C 5.8 (H) 06/01/2015 Osteopenia 02/22/2022 Esophageal reflux 12/10/2021 Age-related cataract of both eyes 04/15/2021 Assessment & Plan (04/19/2024 1:31 PM LABORATORY CLERK): Not v/s, monitor Assessment & Plan (05/06/2023 9:14 AM CDT): Stable best-corrected visual acuity (BVA), monitor Release updated glasses Rx Assessment & Plan (04/15/2021 11:03 AM LABORATORY CLERK): She is not bothered, observe Right rotator cuff tear arthropathy 11/24/2020 Controlled substance agreement signed 11/20/2020 Current chronic use of systemic steroids 021 Chronic diastolic heart failure 09/02/2020 Overview (05/30/2021): TTE 07/18/20 with normal LVEF, evidence of diastolic dysfunction, no valvular abnormalities [facility] 2013 without significant disease Negative HANNA November 2020 proBNP = 10 in August 2020 History of uveitis 09/02/2020 Assessment & Plan (04/15/2021 11:02 AM LABORATORY CLERK): She has no active inflammation today. Follow [...] history of scleroderma 09/03/2020 11/24/2020 Tachycardia, paroxysmal 05/16/2020/0 08/2022 Overview (05/30/2021): 07/2020- Extended Holter with [...] on file Legal Sex Female 7:32 PM LABORATORY CLERK Gender Identity Not on file Sexual Orientation Not on file Last Filed Vital Signs Vital Sign Reading Time Taken Comments Blood Pressure 132/97 04/14/2024 8:04 PM LABORATORY CLERK Pulse 80 04/14/2024 8:04 PM LABORATORY CLERK Temperature 36.4 C (97.5 F) 04/14/2024 3:02 PM LABORATORY CLERK Respiratory Rate 18 04/14/2024 8:04 PM LABORATORY CLERK Oxygen Saturation 99% 04/14/2024 8:04 PM LABORATORY CLERK Inhaled Oxygen Concentration - - Weight 106.6 kg (235 lb) 04/18/2024 10:20 AM LABORATORY CLERK Height 176.5 cm (5' 9.5 ) 04/18/2024 10:20 AM CS T Body Mass Index 34.21 04/18/2024 10:20 AM LABORATORY CLERK Plan of Treatment Not on file Procedures Procedure Name Priority Date/Time Associated Diagnosis Comments XR FOOT RIGHT 3 OR MORE VIEWS Schedule Routine, Read Routine (OP Routine) 04/18/2024 10:48 AM LABORATORY CLERK Right foot pain XR FOOT LEFT 3 OR MORE VIEWS Schedule Routine, Read Routine (OP Routine) 04/18/2024 10:48 AM LABORATORY CLERK Left foot pain XR ANKLE LEFT 3 OR MORE VIEWS Schedule Routine, Read Routine (OP Routine) 04/18/2024 10:48 AM LABORATORY CLERK Left ankle pain, unspecified chronicity XR ANKLE RIGHT 3 OR MORE VIEWS Schedule Routine, Read Routine (OP Routine) 04/18/2024 10:48 AM LABORATORY CLERK Chronic pain of right ankle URINALYSIS AND REFLEX TO MICROSCOPIC STAT 04/14/2024 5:50 PM LABORATORY CLERK POCT GLUCOSE DEVICE Routine 04/14/2024 5 :39 PM LABORATORY CLERK TROPONIN I HIGH-SENSITIVITY 2-HOUR Timed 04/14/2024 5:31 PM LABORATORY CLERK ECG 12-LEAD STAT 04/14/2024 3:38 PM LABORATORY CLERK EGFR STAT 04/14/2024 3:25 PM LABORATORY CLERK DIFFERENTIAL AUTO STAT 04/14/2024 3:2 5 PM LABORATORY CLERK TROPONIN I HIGH-SENSITIVITY SERIES (BASELINE, 2HR, 4HR, 6HR) STAT 04/14/2024 3:25 PM LABORATORY CLERK LIPASE STAT 04/14/2024 3:25 PM LABORATORY CLERK COMPREHENSIVE METABOLIC PANEL STAT 04/14/2024 3:25 PM LABORATORY CLERK CBC WITH AUTO DIFFERENTIAL STAT 04/14/2024 3:25 PM LABORATORY CLERK POCT GLUCOSE DEVICE Routine 04/14/2024 3 :16 PM LABORATORY CLERK PULMONARY FUNCTION TEST (PFT) Routine 03/17/2024 3:55 PM LABORATORY CLERK Abnormal PFT Interstitial lung disease (HCC) IMMUNOGLOBULIN PROFILE Routine 02/19/2024 11:07 AM LABORATORY CLERK Rheumatoid arthritis involving multiple sites with positive rheumatoid factor (HCC) CRP (ACUTE PHASE) Routine 02/19/2024 11: 07 AM LABORATORY CLERK Rheumatoid arthritis involving multiple sites with positive rheumatoid factor (HCC) COMPREHENSIVE METABOLIC PANEL Routine 02/19/2024 11:07 AM LABORATORY CLERK Rheumatoid arthritis involving multiple sites with positive rheumatoid factor (HCC) CBC WITH AUTO DIFFERENTIAL Routine 02/19/2024 11:07 AM LABORATORY CLERK Rheumatoid arthritis involving multiple sites with positive rheumatoid factor (HCC) HEPATITIS C ANTIBODY Routine Gen Lab 01/23/2017 1:16 PM LABORATORY CLERK SCREENING MAMMOGRAM Routine 10/19/2012 1 2:46 PM CDT SERUM LIPID PANEL Routine 10/19/2012 12: 05 PM CDT from Last 3 Months or Most Recently Relevant to Health Maintenance Results * XR Foot Right 3+ View (04/18/2024 10:48 AM LABORATORY CLERK) Anatomical Region Laterality Modality Lower Extremities, Foot Right Computed Radiography 04/18/2024 3:07 PM LABORATORY CLERK Impressions 04/18/2024 6:19 PM LABORATORY CLERK 1. 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 2. Mild right mid and hindfoot osteoarthritis. Dictated by: Matthew Chapin MD PHD The radiology attending physician has personally reviewed this study, and had reviewed and/or edited this written report and agrees with it. Electronically signed by: Kevin Hermosillo MD Narrative 04/18/2024 6:19 PM LABORATORY CLERK EXAMINATION: 1. XR ANKLE LEFT 3+ VIEWS [...] by: Kevin Hermosillo MD Joy Dang NP IMConnie XR PROCEDURES Final Result * XR Foot Left 3+ View (04/18/2024 10:48 AM LABORATORY CLERK) Anatomical Region Laterality Modality Lower Extremities, Foot Left Computed Radiography 04/18/2024 3:07 PM LABORATORY CLERK Impressions 04/18/2024 6:19 PM LABORATORY CLERK 1. 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 2. Mild right mid and hindfoot osteoarthritis. Dictated by: Matthew Chapin MD PHD The radiology attending physician has personally reviewed this study, and had reviewed and/or edited this written report and agrees with it. Electronically signed by: Kevin Hermosillo MD Narrative 04/18/2024 6:19 PM LABORATORY CLERK EXAMINATION: 1. XR ANKLE LEFT 3+ VIEWS [...] Ankle Left 3+ View (04/18/2024 10:48 AM LABORATORY CLERK) Anatomical Region Laterality Modality Lower Extremities, Ankle Left Compute d Radiography 04/18/2024 3:07 PM LABORATORY CLERK Impressions 04/18/2024 6:19 PM LABORATORY CLERK 1. 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 2. Mild right mid and hindfoot osteoarthritis. Dictated by: Matthew Chapin MD PHD The radiology attending physician has personally reviewed this study, and had reviewed and/or edited this written report and agrees with it. Electronically signed by: Kevin Hermosillo MD Narrative 04/18/2024 6:19 PM LABORATORY CLERK EXAMINATION: 1. XR ANKLE LEFT 3+ VIEWS [...] it. Electronically signed by: Kevin Hermosillo MD [facility] [employer] IM XR PROCEDURES Final Result * XR Ankle Right 3+ View (04/18/2024 10:48 AM LABORATORY CLERK) Anatomical Region Laterality Modality Lower Extremities, Ankle Right Compute d Radiography 04/18/2024 3:07 PM LABORATORY CLERK Impressions 04/18/2024 6:19 PM LABORATORY CLERK 1. 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 2. Mild right mid and hindfoot osteoarthritis. Dictated by: Matthew Chapin MD PHD The radiology attending physician has personally reviewed this study, and had reviewed and/or edited this written report and agrees with it. Electronically signed by: Kevin Hermosillo MD Narrative 04/18/2024 6:19 PM LABORATORY CLERK EXAMINATION: 1. XR ANKLE LEFT 3+ VIEWS [...] Electronically signed by: Kevin Hermosillo MD Joy Ugochong IMG XR PROCEDURES Final Result * Urinalysis reflex to microscopic (04/14/2024 5:50 PM LABORATORY CLERK) Color, ur Straw Yellow Clarity, ur Clear Clear [facility] Specific gravity, ur 1.006 1.003 - 1.[address] [facility] pH, urine 7.[address] [facility] Comment: Interpretive Data U rine pH is affected by diet, medications, systemic acid-base disturbances, and renal tubular function. pH may affect urinary stone formation. For example, urine pH below 6.0 may help reduce the tendency for calcium phosphate stones and pH greater than 6.0 may reduce the tendency for uric acid stone formation. Source: [facility] Current Interpretive Data was last revised on 2017 Protein, ur ql Negative Negative [facility] Glucose, ur ql Negative Negative [facility] Ketones, ur Negative Negative [facility] Bilirubin, ur Negative Negative [facility] Blood, ur Negative Negative [facility] Urobilinogen, ur <2.0 <2.0 mg/dL [facility] Nitrite, ur Negative Negative [facility] Leukocyte esterase, ur Negative Negative [facility] UA reflex comment Reflex conditions for microscopic UA not met. [facility] Urine 04/14/2024 5:50 PM LABORATORY CLERK 04/14/2024 5:58 PM LABORATORY CLERK us Garcia Louis MD PhD LAB URINE ORDERABLE S Final Result [facility] [place] [address] * POCT glucose (04/14/2024 5:39 PM LABORATORY CLERK) Glucose, POC 123 70 - 199 mg/dL Blood 04/14/2024 5:39 PM LABORATORY CLERK 04/14/2024 5:39 PM LABORATORY CLERK us Notinfile Unknown LAB POCT ORDERABLES - DEVICE F inal Result Performing Organization Address City/[facility]/ZIP Co de Phone Number [facility] Department [place] [address] * Troponin I high-sensitivity 2-hour (04/14/2024 5:31 PM LABORATORY CLERK) Trop I hs <4 <=17 ng/L Comment: Interpretive Data For further hscTnI resources including the diagnostic algorithm and an aid in interpretation, copy and paste this link: https://bjhlab.testcatalog.org/show/hsTrop-[email or web address] Current Interpretive Data last revised 2019. Trop I hs delta 0 ng/L [facility] Trop I hs interp Insignificant [facility] Blood 04/14/2024 5:31 PM LABORATORY CLERK 04/14/2024 5:36 PM LABORATORY CLERK us Angel Davison MD LAB BLOOD ORDERABLES F inal Result Performing Organization Address [facility] Co de Phone Number [facility] Department [place] [address] * ECG 12-LEAD (04/14/2024 3:38 PM LABORATORY CLERK) Narrative [facility] - 04/14/2024 3:38 PM LABORATORY CLERK Gabriel Gunn MD 04/14/2024 3:39 PM ECG [...] ORDERABLES Fin al Result Performing Organization Address [facility]/ZIP Co de Phone Number [facility] * Troponin I high-sensitivity series (baseline, 2hr, 4hr, 6hr) (04/14/2024 3:25 PM LABORATORY CLERK) Trop I hs <4 <=17 ng/L Comment: Interpretive Data For further hscTnI resources including the diagnostic algorithm and an aid in interpretation, copy and paste this link: https://bjhlab.testcatalog.org/show/hsTrop-1 Current Interpretive Data last revised 2019. Blood 04/14/2024 3:25 PM LABORATORY CLERK 04/14/2024 3:50 PM LABORATORY CLERK Garica Louis MD PhD LAB BLOOD ORDERABLE S Final Result Performing Organization Address City/[facility]/ZIP Co de Phone Number [facility]EL[facility] [place] [address] * eGFR (04/14/2024 3:25 PM LABORATORY CLERK) eGFR 89 >=60 mL/min/1. 73 m2 Comment: [...] last reviewed 2020. Blood 04/14/2024 3:25 PM LABORATORY CLERK 04/14/2024 3:50 PM LABORATORY CLERK us Garcia Louis MD PhD LAB BLOOD ORDERABLE S Final Result [facility] [place] [address] * Differential, auto (04/14/2024 3:25 PM LABORATORY CLERK) Neutrophil abs 6.3 1.5 - 6.5 K/cumm Imm gran abs 0.1 0.0 - 0.1 K/cumm [facility] Lymphocyte abs 2.2 0.8 - 3.3 K/cumm [facility] Monocyte abs 0.5 0.2 - 0.8 K/cumm [facility] Eosinophil abs 0.1 0.0 - 0.5 K/cumm [facility] Basophil abs 0.0 0.0 - 0.1 K/cumm [facility] Neutrophil pct 68.8 % [facility] Comment: Interpretive Data Percent cell count reference ranges are not reported, since discordance with absolute values may lead to misinterpretation of CBC data. Current Interpretive Data was last revised on 2017. Imm gran pct 0.7 % [facility] Comment: Interpretive Data Percent cell count reference ranges are not reported, since discordance with absolute values may lead to misinterpretation of CBC data. Current Interpretive Data was last revised on 2017. Lymphocyte pct 23.7 % [facility] Comment: Interpretive Data Percent cell count reference ranges are not reported, since discordance with absolute values may lead to misinterpretation of CBC data. Current Interpretive Data was last revised on 2017. Monocyte pct 5.3 % [facility] Comment: Interpretive Data Percent cell count reference ranges are not reported, since discordance with absolute values may lead to misinterpretation of CBC data. Current Interpretive Data was last revised on 2017. Eosinophil pct 1.1 % [facility] Comment: Interpretive Data Percent cell count reference ranges are not reported, since discordance with absolute values may lead to misinterpretation of CBC data. Current Interpretive Data was last revised on 2017. Basophil pct 0.4 % [facility] Comment: Interpretive Data Percent cell count reference ranges are not reported, since discordance with absolute values may lead to misinterpretation of CBC data. Current Interpretive Data was last revised on 2017. Blood 04/14/2024 3:25 PM LABORATORY CLERK 04/14/2024 3:50 PM LABORATORY CLERK us Garcia Louis MD PhD LAB BLOOD ORDERABLE S Final Result [facility] [place] [address] * CBC with auto differential (04/14/2024 3:25 PM LABORATORY CLERK) [facility] WBC 9.1 3.8 - 9.9 K/cumm Hgb 12.9 11.9 - 15.5 g/dL [facility] Hct 39.0 35.6 - 45.5 % [facility] Plt 313 150 - 400 K/cumm [facility] MPV 9.5 9.1 - 12.[address] [facility] RBC 4.55 3.90 - 5.20 M/cumm [facility] MCV 85.7 81.3 - 96.[address] [facility] MCH 28.4 27.1 - 33.[address] [facility] MCHC 33.1 32.3 - 35.7 g/dL [facility] RDW CV 12.6 11.1 - 14.9 % [facility] RDW SD 39.2 35.7 - 48.[address] [facility] NRBC abs 0.00 0.00 - 0.01 K/cumm [facility] Blood Venous blood specimen / Unknown 04/14/2024 3:25 PM LABORATORY CLERK 04/14/2024 3:50 PM LABORATORY CLERK us Garcia Louis MD PhD LAB BLOOD ORDERABLE S Final Result Performing Organization Address City/[facility]/ZIP Co de Phone Number [facility] [place] [place] [address] * Lipase (04/14/2024 3:25 PM LABORATORY CLERK) [facility] Lipase 22 10 - 99 Units/L Blood Venous blood specimen / Unknown 04/14/2024 3:25 PM LABORATORY CLERK 04/14/2024 3:50 PM LABORATORY CLERK Garcia Louis MD PhD LAB BLOOD ORDERABLE S Final Result [facility] [place] [place] [address] * Comprehensive metabolic panel (04/14/2024 3:25 PM LABORATORY CLERK) [facility] Sodium 137 135 - 145 mmol/L Potassium, pl 3.9 3.3 - 4.9 mmol/L [facility] Chloride 100 97 - 110 mmol/L [facility] CO2 25 22 - 32 mmol/L [facility] Anion gap 12 2 - 15 mmol/L [facility] BUN 10 6 - 25 mg/dL [facility] Creatinine 0.76 0.60 - 1.10 mg/dL [facility] Glucose 181 70 - 199 mg/dL [facility] Comment: Interpretive Data Fasting glucose [...] 2022. Calcium 9.2 8.5 - 10.3 mg/dL [facility] Bilirubin, total 0.6 0.1 - 1.2 mg/dL [facility] Protein, pl 7.5 6.5 - 8.5 g/dL [facility] Albumin 3.8 3.5 - 5.0 g/dL [facility] Alk phos 74 40 - 130 Units/L [facility] ALT 34 7 - 45 Units/L [facility] AST 28 10 - 45 Units/L [facility] Blood 04/14/2024 3:25 PM LABORATORY CLERK 04/14/2024 3:50 PM LABORATORY CLERK us Garcia Louis MD PhD LAB BLOOD ORDERABLE S Final Result [facility] [place] [address] * POCT glucose (04/14/2024 3:16 PM LABORATORY CLERK) Glucose, POC 176 70 - 199 mg/dL Blood 04/14/2024 3:16 PM LABORATORY CLERK 04/14/2024 3:16 PM LABORATORY CLERK us Notinfile Unknown LAB POCT ORDERABLES - DEVICE F inal Result [facility] Department [place] [address] * (ABNORMAL) Pulmonary Function Test - (03/17/2024 3:55 PM LABORATORY CLERK) [facility] FVC PRE 2.88 2.29 - 4.[address] [facility] FEV1 PRE 2.54 1.77 - 3.11 L [facility] [id number] 88.21 66.97 - 89.03 % [facility] FGD47-95% PRE 3.67 0.89 - 3.92 L/s [facility] PEF PRE 6.81 5.19 - 8.15 L/s [facility] DLCOc SB 18.54(A) 19.82 - 31.29 ml/(min*mm Hg) [facility] DLCO/VA PRE 4.85 3.17 - 5.67 ml/(min*mm Hg*L) [facility] VA 3.82(A) 5.63 - 5.63 L [facility] TLC PRE 4.38(A) 4.79 - 6.76 L [facility] VC PRE 2.88 2.71 - 4.09 L [facility] IC PRE 2.45(A) 2.58 - 2.58 L [facility] FRC PL PRE 1.94(A) 2.17 - 3.81 L [facility] ERV PRE 0.43(A) 0.82 - 0.82 L [facility] RV PRE 1.50(A) 1.59 - 2.74 L [facility] VTG 2.07 L [facility] RAW PRE 3.05(A) 3.06 - 3.06 cmH2O*s/L [facility] Anatomical Region Laterality Modality PFT 03/17/2024 3:06 PM LABORATORY CLERK Impressions 03/20/2024 8:37 PM LABORATORY CLERK 1. Umwc-qu-oisrdwvm restrictive ventilatory limitation 2. Mild diffusion impairment 3. Ambulatory oximetry was performed and at this level of activity the patient did not require supplemental oxygen Electronically signed by Tristian Carrillo MD Pulmonary & Critical Care Narrative 03/20/2024 8:37 PM LABORATORY CLERK PULMONARY FUNCTION TESTS Joselin Canada 63 y.o. [...] * (ABNORMAL) Immunoglobulin profile (02/19/2024 11:07 AM LABORATORY CLERK) [facility] Immunoglobulin G 1,598 700 - 1,600 mg/dL Immunoglobulin A 313 70 - 400 mg/dL [facility] Immunoglobulin M 245(H) 40 - 230 mg/dL [facility] Blood 02/19/2024 11:0 7 AM LABORATORY CLERK 02/19/2024 1:09 PM LABORATORY CLERK Jeremi López MD PhD LAB BLOOD ORDERABLE S Final Result [facility] [place] [address] * CBC with auto differential (02/19/2024 11:07 AM LABORATORY CLERK) [facility] White Blood Count 7.8 3.6 - [...] - [facility] Blood 02/19/2024 11:0 7 AM LABORATORY CLERK 02/19/2024 12:25 PM LABORATORY CLERK us Intelly Clive López MD PhD LAB BLOOD ORDERABLE S Final Result [facility] * (ABNORMAL) CRP (acute phase) (02/19/2024 11:07 AM LABORATORY CLERK) C-Reactive Protein, Acute 5.8(H) <5.0 mg/L [facility] Blood 02/19/2024 11:0 7 AM LABORATORY CLERK 02/19/2024 12:25 PM LABORATORY CLERK Jeremi López MD PhD LAB BLOOD ORDERABLE S Final Result [facility] * (ABNORMAL) Comprehensive metabolic panel (02/19/2024 11:07 AM LABORATORY CLERK) Total Protein 7.7 6.1 - 8.4 g/dL [...] - [facility] Blood 02/19/2024 11:0 7 AM LABORATORY CLERK 02/19/2024 12:25 PM LABORATORY CLERK Jeremi López MD PhD LAB BLOOD ORDERABLE S Final Result [facility] * Hepatitis C antibody (01/23/2017 1:16 PM LABORATORY CLERK) Hep C Ab Nonreactive Nonreactive [facility] Comment: Interpretive Data Positive and greyzone results should be confirmed by a molecular method. If positive or greyzone, a second separately collected sample should be submitted for Hepatitis C Virus RNA. Detection and Quantitation by Real-Time Reverse Take Out Waiter-PCR.Current Interpretive data was last revised on 2016. Blood specimen (specimen) 01/23/2017 1:16 PM LABORATORY CLERK 01/23/2017 4:49 PM LABORATORY CLERK Narrative [facility] - 01/24/2017 9:19 AM LABORATORY CLERK us Rocio Ellis MD LAB MICROBIOLOGY - GENERAL OR DERABLES Edited Result - Final [facility] [place] [address] * Screening Mammogram (10/19/2012 12:46 PM CDT) Anatomical Region Laterality Modality Breast N/A Mammography 10/19/2012 12:4 6 PM CDT Narrative 10/20/2012 1:30 PM CDT ANGELICA BYNUM M.D. FINAL REPORT ACC# Date Time Exam [id number] Oct 19, 2012 12:46:00 [facility] [id number] Screening Mamm Bilat Technologist(s): Dilia Gregg; ; EXAMINATION: Mammogram Findings: A Full-Field Digital Screening Mammogram was performed. Views obtained: bilateral craniocaudal; bilateral mediolateral oblique. Computer Aided Detection was performed with Moy Univer.3 version 9.3. The present examination has been compared to prior imaging studies performed at [facility] on 10/06/2011, 03/05/2010 and 06/23/2008. The breasts [...] M.D. FINAL REPORT ACC# Date Time Exam [id number] Oct 19, 2012 12:46:00 [facility] [id number] Screening Mamm Bilat Technologist(s): Dilia Gregg; ; EXAMINATION: Mammogram Findings: A Full-Field Digital Screening Mammogram was performed. Views obtained: bilateral craniocaudal; bilateral mediolateral oblique. Computer Aided Detection was performed with Moy Univer.3 version 9.3. The present examination has been compared to prior imaging studies performed at [facility] on 10/06/2011, 03/05/2010 and 06/23/2008. The breasts are almost entirely fat. There is no suspicious abnormality in either breast. IMPRESSION: Annual screening mammography is recommended. OVERALL FINAL ASSESSMENT: BI-RADS CATEGORY 1: Negative. Requested By: LISA WEINBERG M.D. Dictated By: ANEGLICA BYNUM M.D. on Oct 20 2012 1:30P [...] Most Recently Relevant to [place] [address] T [place] [address] MEDICARE [employer] OPEN ACCESS [facility] [id number] [place] [address] [facility] MEDICARE [employer] [place] [address] Care Teams Technical Engineer Relationship Specialty Start Date End Date Mercedes Collins MD [address] [place] [address] PCP - General 06/25/17 Andrzej Grimes, OD [address] [place] [address] Referring Physician Ophthalmology 04/18/20 Ramsey Barbosa MD [address] [place] [address] Medical Illustrator Transplant 05/30/21 Juana Leal, RN [address] [address] Heart Failure Coordinator Blue Leather Sorter 05/30/21
--- OUTSIDE RECORDS SUMMARY | 2024-04-25 10:08 | XMS_ITS | Encounter Summary ---
Author Organization [facility] Healthcare Address [address] [place] [address] Care Team Providers Care Triage Specialist Name Role Phone Mercedes Collins MD Primary Care Provider + Andrzej Grimes OD Unavailable [phone] Ramsey Barbosa MD Unavailable [phone] Juana Leal RN Unavailable [phone] Encounter Details Date Type Department Care Team (Late st Contact Info) Description 04/12/2024 Telephone [facility] [address] [facility] [address] [place] [address] Gorge Cook, ABHILASH Social History [...] on file Legal Sex Female 7:32 PM FURNACE BUILDER Gender Identity Not on file Sexual Orientation Not on file documented as of this encounter Miscellaneous Notes * Telephone Encounter - Gorge Cook RN - 04/12/2024 2:14 PM FURNACE BUILDER Attempted to speak with patient prior to to first visit to [facility] to inform them of visitor, late, andsick policies, and what to expect during visit including duration of appointment. No answer. ACE BUILDER documented in this encounter Plan of Treatment Not on file documented as of this encounter Visit Diagnoses Not on filedocumented in this encounter Care Teams Triage Specialist Relationship Specialty Start Date End Date Mercedes Collins MD [address] [facility] [address] [place] [address] PCP - General 06/25/17 Andrzej Grimes, OD [address] [place] [address] Referring Physician Ophthalmology 04/18/20 Ramsey Barbosa MD [address] [place] [address] Principal Engineer Transplant 05/30/21 Juana Leal RN [address] [facility] [address] [place] [address] Heart Failure Coordinator Wood Grinder 05/30/21 documented as of this encounter
== END 2024-04-25 08:59 | disposition home or self-care (01) ==
PROVIDERS: Visit Provider Emergency Medicine
DX: M79.605 Pain in left leg (principal)
CPT/HCPCS: 93971

== ENCOUNTER 2024-05-10 08:05 | Outpatient (CLI) | payer MEDICARE, OTHER, SELFPAY ==
--- NOTE | ~2024-05-10 | MR_ITS ---
EXAMINATION: MR abdomen wo/w con DATE: 05/10/2024 09:24 INDICATION: Pancreatic mass. TECHNIQUE: Magnetic resonance imaging (MRI) of the abdomen was performed without and with 20 mL Multi Arlyn intravenous contrast. COMPARISON: CT abdomen and pelvis 04/24/2024 FINDINGS: There is diffuse hepatic steatosis. The gallbladder is absent. The spleen is normal. There is a 10 mm cyst in the uncinate process of the pancreas without visible communication with the main pancreatic duct. The main pancreatic duct is normal in caliber. The adrenal glands and left kidney are normal. T here is a 4 mm cyst in right kidney. There are no dilated loops of bowel. IMPRESSION: 1. Low-risk 10 mm pancreatic cyst. The differential diagnosis includes pseudocyst, intraductal papill carlos mucinous neoplasm (IPMN), mucinous cystic neoplasm (MCN), serous cystadenoma, and neuroendocrine tumor. Abdomen MRI without and with contrast is recommended in one year. 2. Diffuse hepatic steatosis. Reviewed, dictated and finalized at location A. IMPRESSION: 1. Low-risk 10 mm pancreatic cyst. The differential diagnosis includes pseudocy st, intraductal papillary mucinous neoplasm (IPMN), mucinous cystic neoplasm (M CN), serous cystadenoma, and neuroendocrine tumor. Abdomen MRI without and with contrast is recommended in one year. 2. Diffuse hepatic steatosis.
--- OUTSIDE RECORDS SUMMARY | 2024-05-10 08:24 | XMS_ITS | Encounter Summary ---
Author Organization [facility] Address [address] [facility] [place] [address] Care Team Providers Care Business Development Officer Name Role Phone José Ashton MD Primary Care Provider [phone] Marcos Banks MD Unavailable [phone] Krish Woodard MD Unavailable Unavailable Chucky Menendez MD Unavailable [phone] Agata Castro MD Primary Care Provider [phone] Agata Castro MD Unavailable [phone] Mercedes Collins MD Primary Care Provider [phone] Nathalie Guzman MD, Richard D Unavailable [phone] Danielle Reina MD Unavailable + [phone] Mercedes Collins MD Unavailable [phone] Mercedes Collins MD Primary Care Provider [phone] Carlota Hyman MASK LAYOUT DESIGNER-STEAM FRAME OPERATOR Unavailable [phone] Mercedes Collins MD Unavailable [phone] Carlota Hyman MASK LAYOUT DESIGNER-STEAM FRAME OPERATOR Unavailable [phone] Mercedes Collins MD Unavailable [phone] Ladan Acosta RN Unavailable Ramsey Barbosa MD Unavailable Mercedes Collins MD Unavailable [phone] JarrettjessieStacey colin Unavailable Krish Woodard MD Unavailable Unavailable Encounter Details Date Type Department Care Team ([facility] Contact Info) Description 02/04/2013 [facility] Outpatient Visit EXTERNAL NON-SS DEPT Marcos Banks MD [facility]7 [facility] [address] [place] [address] Social History Tobacco Use Types Packs/Day Years [...] Description 06/07/2024 1:20 PM CDT Office Visit [facility] - Internal Medicine [address] [place] [address] [address] [place] [address] Mercedes Collins MD [address] [place] [address] [address] [place] [phone] 12/01/2024 11:45 AM CDT Office Visit [facility] - MACHINE UMBRELLA TIPPER [address] [place] [address] [address] [place] [address] Peterson Nance MD [address] [place] [id number] documented as of this encounter Visit Diagnoses Not on filedocumented in this encounter Additional Health Concerns Infection Onset Date Last Indicated Resolved Time COVID-19 Under Investigation 06/18/2020 06/18/2020 06/19/2020 6:11 AM CDT COVID-19 Confirmed 06/18/2020 06/18/2020 4:33 AM CDT COVID-19 Under Investigation 07/15/2020 07/15/2020 07/15/2020 6:50 AM CDT COVID-19 Under Investigation 01/21/2023 01/21/2023 01/21/2023 6:24 PM PARAPROFESSIONAL INTERPRETER documented as of this encounter Care Teams Business Development Officer Relationship Specialty Start Date End Date José Ashton MD [address] [facility] 400 [place] [phone] PCP - General 09/11/10 03/27/13 [place] [address] [place] [address] [address] [place], [place] [id number] PCP - General Family Medicine 09/17/16 11/30/16 Mercedes Collins MD [address] [place] [address] [address] [place] [address] PCP - General Internal Medicine 12/01/16 05/16/19 Mercedes Collins MD [address] [place] [address] [address] [place] [address] PCP - Attributed-MSSP 07/17/18 09/15/20 Mercedes Collins MD [address] [place], [place] [address] [address] [place] [address] PCP - General Internal Medicine 05/17/19 Carlota Hyman, MASK LAYOUT DESIGNER-STEAM FRAME OPERATOR 10[address] [facility] [address] [place] [phone] PCP - Attributed-MSSP 09/16/20 10/16/20 Mercedes Collins MD [address] [place] [address] PCP - Attributed-MSSP 10/17/20 04/15/21 Carlota Hyman, MASK LAYOUT DESIGNER-STEAM FRAME OPERATOR [address] [place] [address] PCP - Attributed-MSSP 04/16/21 06/15/21 Mercedes Collins MD [address] [place] [address] PCP - Attributed-MSSP 06/16/21 08/11/23 Mercedes Collins MD [address] [place] [address] PCP - Attributed-Coventry MA 02/16/23 Krish Woodard MD PCP - Attributed-MSSP 04/16/18 07/16/18 Marcos Banks MD [address] [place] [address] Cardiology 09/29/13 10/28/22 Krish Woodard MD [address] [place] [place] [address] Pulmonary Disease 09/29/13 09/19/15 Chucky Menendez MD [address] [place] [address] [address] [place], [place] [phone] Rn Primary Care Pulmonary Disease 09/20/15 Agata Castro MD [address] [place] [address] [address] [place], [place] [phone] Referring Physician Family Medicine 09/17/16 11/09/18 Wade Zleaya Jr., MD [address] [facility] [address] [place] [address] Rheumatology 12/01/16 Danielle Reina MD [address] [facility], [address] Orthopedic Surgery 12/01/16 Ladan Acosta, ABHILASH Twister OperatorFarm Loan Representative 07/23/22 08/14/22 Ramsey Barbosa MD [address] [facility] [address] [place] [address] Internal Medicine 10/29/22 Stacey Michelle 3[address] [facility] [address] [place] [address] Care Coordination Specialist Care Management 09/29/23 11/13/23 documented as of this encounter
--- OUTSIDE RECORDS SUMMARY | 2024-05-10 08:24 | XMS_ITS | Encounter Summary ---
Author Organization [facility] Healthcare Address [address] [place] [address] Care Team Providers Care Agency Sales Director Name Role Phone Mercedes Collins MD Primary Care Provider + Andrzej Grimes OD Unavailable [phone] Ramsey Barbosa MD Unavailable [phone] Juana Leal RN Unavailable [phone] Encounter Details Date Type Department Care Team (Late st Contact Info) Description 04/12/2024 Telephone [facility] [address] [facility] [address] [place] [address] Gorge Cook, ABHILASH Social History [...] on file Legal Sex Female 7:32 PM HAM CLERK Gender Identity Not on file Sexual Orientation Not on file documented as of this encounter Miscellaneous Notes * Telephone Encounter - Gorge Cook RN - 04/12/2024 2:14 PM HAM CLERK Attempted to speak with patient prior to to first visit to [facility] to inform them of visitor, late, andsick policies, and what to expect during visit including duration of appointment. No answer. CLERK documented in this encounter Plan of Treatment Not on file documented as of this encounter Visit Diagnoses Not on filedocumented in this encounter Care Teams Agency Sales Director Relationship Specialty Start Date End Date Mercedes Collins MD 1035 [facility] 400 [place] [address] PCP - General 06/25/17 Andrzej Grimes, OD [address] [place] [address] Referring Physician Ophthalmology 04/18/20 Ramsey Barbosa MD [address] [place] [address] Equipment Processer Storage Transplant 05/30/21 Juana Leal RN 4590 [facility] [address] [place] [address] Heart Failure Coordinator Voyage Management System Operator 05/30/21 documented as of this encounter
--- OUTSIDE RECORDS SUMMARY | 2024-05-10 08:24 | XMS_ITS | Encounter Summary ---
Author Organization [facility] Address [address] [facility] [place] [address] Care Team Providers Care Drum Sprayer Name Role Phone Chucky Menendez MD Unavailable [phone] Nathalie Guzman MD, Wade Lopes Unavailable [phone] Danielle Reina MD Unavailable [phone] Mercedes Collins MD Primary Care Provider Ramsey Barbosa MD Unavailable [phone] Mercedes Collins MD Unavailable [phone] Reason for Visit * Reason Onset Date Comments Update 04/14/2024 Encounter Details Date Type Department Care Team (Late st Contact Info) Description 04/14/2024 Telephone [facility] Medical [facility] - Internal Medicine [address] [facility] [address] [place] [address] Mercedes Collins MD [address] [place] [address] Update Social History Tobacco Use Types [...] wanted to faint. Patient was taken to [place] [facility] to be examined. Expected Response from the Clinic? ( ex. Call back, etc..) [phone] Did you notify caller it would take 24-48 hours for the office to get back to them? YES CAL PHYSICS PROFESSOR documented in this encounter Plan of Treatment Upcoming Encounters Date Type Department Care Team (Late st Contact Info) Description 06/07/2024 1:20 PM CDT Office Visit [facility] Medical [facility] - Internal Medicine [facility] [facility] [address] [place] [address] Mercedes Collins MD [address] [place] [address] 12/01/2024 11:45 AM CDT Office Visit [facility] - SERVICE ENGINE REPAIRER [address] [facility] 400 [place] [address] Peterson Nance MD 1031 [facility] 400 [place] [address] documented as of this encounter Visit Diagnoses Not on filedocumented in this encounter Care Teams Drum Sprayer Relationship Specialty Start Date End Date Mercedes Collins MD [facility]5 [facility] 400 [place] [address] PCP - General Internal Medicine 05/17/19 Mercedes Collins MD [address] [place] [address] [address] [place] [address] PCP - Attributed-Coventry NE 02/16/23 Chucky Menendez MD [address] [place] [address] 500 [place] [address] Senior Solutions Consultant Pulmonary Disease 09/20/15 Wade Zelaya Jr., MD [address] [place] [address] [address] [place] [address] Rheumatology 12/01/16 [place] [address] [place] [address] Orthopedic Surgery 12/01/16 Ramsey Barbosa MD [address] [address] Internal Medicine 10/29/22 documented as of this encounter
--- OUTSIDE RECORDS SUMMARY | 2024-05-10 08:24 | XMS_ITS | Encounter Summary ---
Author Organization [facility] Address [address] [place] [address] Care Team Providers Care Director Pediatric Name Role Phone Marcos Banks MD Unavailable [phone] Chucky Menendez MD Unavailable [phone] Nathalie Guzman MD, Wade Lopes Unavailable [phone] Danielle Reina MD Unavailable [phone] Mercedes Collins MD Primary Care Provider [phone] Mercedes Collins MD Unavailable [phone] Carlota Hyman EDUCATION MANAGERS-PLATFORM CONSULTANT Unavailable [phone] Mercedes Collins MD Unavailable [phone] Ladan Acosta RN Unavailable Ramsey Barbosa MD Unavailable Mercedes Collins MD Unavailable Stacey Michelle Unavailable [phone] Reason for Visit * Reason Onset Date Comments Pain Pelvic 12/17/2020 Encounter Details Date Type Department Care Team (Late st Contact Info) Description 12/17/2020 Telephone [facility] [address] [place] [address] Dominick Dodson MD [address] [place] [address] Pain Pelvic Social History Tobacco [...] She agrees to 345pm appt tomorrow at [facility]'s office. Directions given over the phone, but will send mychart msg. * Telephone Encounter - Radha Burden - 12/17/2020 2:37 PM CDT Patient called in- having severe pelvic pain- Thursday was unbearable- today is pretty bad 10/26 especially when voiding- Was given samples and wonders if this is the cause- Please call [phone] documented in this encounter Plan of Treatment Upcoming Encounters Date Type Department Care Team (Late st Contact Info) Description 06/07/2024 1:20 PM CDT Office Visit [facility] Medical [facility] - Internal Medicine [address] [facility] [address] [place] [address] Mercedes Collins MD [address] [place] [address] 12/01/2024 11:45 AM CDT Office Visit [facility] - SEWER TAPPER [address] [place] [address] Peterson Nance MD [address] [place] [address] documented as of this encounter Visit Diagnoses Not on filedocumented in this encounter Additional Health Concerns Infection Onset Date Last Indicated Resolved Time COVID-19 Under Investigation 01/21/2023 01/21/2023 01/21/2023 6:24 PM MANAGER SOCIAL documented as of this encounter Care Teams Director Pediatric Relationship Specialty Start Date End Date Mercedes Collins MD [address] [place] [phone] PCP - General Internal Medicine 05/17/19 Mercedes Collins MD [address] [place] [phone] PCP - Attributed-MSSP 10/17/20 04/15/21 Carlota Hyman, EDUCATION MANAGERS-PLATFORM CONSULTANT [address] [place] [address] [address] [place] [address] PCP - Attributed-MSSP 04/16/21 06/15/21 [place] [address] [place] [address] [address] [place] [address] PCP - Attributed-MSSP 06/16/21 08/11/23 Mercedes Collins MD [address] [place] [address] [address] [place] [address] PCP - Attributed-Coventry MA 02/16/23 Marcos Banks MD 1027 [facility] 200 [place], [place] [phone] Cardiology 09/29/13 10/28/22 Chucky Menendez MD [address] [place] [address] 500 [place] [address] Lending Activities Supervisor Pulmonary Disease 09/20/15 Wade Zelaya Jr., MD [address] [place] [address] 500 [place] [address] Rheumatology 12/01/16 Danielle Reina MD [address] [place] [address], [address] Orthopedic Surgery 12/01/16 Ladan Acosta, ABHILASH Finisher Merchant ProductsMission Manager 07/23/22 08/14/22 Ramsey Barbosa MD 49[address] [facility] [address] [place] [address] Internal Medicine 10/29/22 Stacey Michelle [address] [place] [phone] Care Coordination Specialist Care Management 09/29/23 11/13/23 documented as of this encounter
--- OUTSIDE RECORDS SUMMARY | 2024-05-10 08:24 | XMS_ITS | Clinical Summary ---
Author Organization [facility] Address [address] [place] [address] Care Team Providers Care Senior Maintenance Technician Name Role Phone Chucky Menendez MD Unavailable [phone] Nathalie Guzman MD, Wade Lopes Unavailable [phone] Danielle Reina MD Unavailable [phone] Mercedes Collins MD Primary Care Provider Ramsey Barbosa MD Unavailable [phone] Mercedes Collins MD Unavailable [phone] Source Comments [facility],non-owned Affiliates and Associated Physician Practices is amultiple site organization consisting of ambulatory clinics and hospital sitesin [place], [place], [place] and [place]. This disclosure is being madepursuant to the Care Everywhere program and may not contain all information available regarding this patient. Last updated 17.[facility] Allergies Active Allergy Reactions Criticality Noted [...] tablet by mouth 2 times daily 1 07/09/19 17 Active fexofenadine (THERESE) 180 MG tablet Take 1 (one) tablet by mouth once daily as needed Active lancets Use 1 Each once daily Delica 100 Each 3 03/04/19 18 Active prednisoLONE acetate (PRED FORTE) 1 % ophthalmic suspension Instill 1 (one) drop into both eyes as needed 01/15/20 18 Active albuterol (PROVENTIL;VENTOLI N) (2.5 MG/3ML) 0.083% nebulizer solution Inhale 2.5 (two and one-half) mg by mouth every 6 hours as needed for Shortness of Breath or Wheezing 120 vial 5 06/30/19 21 Active spironolactone (ALDACTONE) 25 MG tablet 0.5 (one-half) tablet 10/30/19 21 Active gabapentin (NEURONTIN) 300 MG capsule Take 1 (one) capsule by mouth nightly as needed (pain) 30 capsule 02/02/20 21 Active verapamil CR (ISOPTIN-SR) 180 MG tablet Take 2 (two) tablets by mouth once daily 08/15/19 22 Active ammonium lactate (Lac-Hydrin) 12 % creamIndications:X erosis Cutis Apply to the feet and toenails at least once a day. Do not apply between the toes. Reasons: Abnormal Dryness of Skin 385 g 5 12/11/19 22 Active inFLIXimab (Remicade) injection 1,100 (one thousand one hundred) mg by Intravenous route Active Multiple Vitamins-Minerals (Super Thera Maria Luz M) TABS Take 1 (one) tablet by mouth once daily Active albuterol (Proventil;Ventoli n) (2.5 MG/3ML) 0.083% nebulizer solution Inhale 2.5 (two and one-half) mg by mouth every 4 hours as needed for Shortness of Breath 360 mL 5 07/02/19 23 Active Methotrexate, PF, (Rasuvo) 7.5 MG/0.15ML Inject 7.5 mg subcutaneously every 7 days 07/12/19 23 Active benzonatate (Tessalon) 200 MG capsule Take 1 (one) capsule by mouth 3 times daily as needed for Cough 30 capsule 1 01/14/20 23 Active busPIRone (Buspar) 5 MG tablet TAKE 1 TABLET BY MOUTH THREE TIMES A DAY 270 tablet 1 01/17/20 23 Active Additional Information Patient taking differently:5 mg Oral3 TIMES DAILY PRN, Reported on 12/17/2023 albuterol HFA (Proventil; Ventolin; Proair) 108 (90 Base) MCG/ACT inhaler INHALE 2 PUFFS BY MOUTH EVERY 4 HOURS NEEDED 54 g 3 02/17/19 24 Active ketoconazole (Nizoral) 2 % creamIndications:E czema,Tinea Pedis Apply to the feet and toes twice a day as needed. Do not apply between the toes. Reasons: Athlete's Foot, Eczema 60 g 2 03/04/19 24 Active diclofenac sodium (Voltaren) 1 % gelIndications:Ost eoarthritis Apply 4 (four) g to affected area 4 times daily Apply to foot as needed for pain Reasons: Joint Damage causing Pain and Loss of Function 100 g 5 03/04/19 24 Active umeclidinium-vilan terol (Anoro Ellipta) 62.5-25 MCG/ACT inhaler Inhale 1 (one) puff by mouth once daily 30 Each 11 05/18/19 24 Active Lancets (ONETOUCH DELICA PLUS 33G EXTRA FINE LANCET)Indications :Type 2 diabetes mellitus with diabetic neuropathy, without long-term current use of insulin ([facility]) Use 1 Each once daily 100 Each 5 05/21/19 24 Active Blood Glucose Monitoring Suppl (BerGenBioTouch Verio) w/Device KITIndications:Typ e 2 diabetes mellitus with diabetic neuropathy, without long-term current use of insulin ([facility]) Use 1 Each as directed 1 kit 05/21/19 24 Active blood glucose (BerGenBioTouch Verio) test stripIndications:T ype 2 diabetes mellitus with diabetic neuropathy, without long-term current use of insulin ([facility]) Use 1 (one) strip as directed 50 strip 05/21/19 24 Active ipratropium (Atrovent) 0.03 % nasal sprayIndications:N lindsey congestion SPRAY 1-2 SPRAYS INTO EACH NOSTRIL 3 TIMES DAILY 30 mL 06/04/19 24 Active fluticasone propionate (Flonase) 50 MCG/ACT nasal spray Reading 1 (one) spray into each nostril 2 times daily 16 g 11 10/07/19 24 Active pantoprazole EC (Protonix) 40 MG tabletIndications: Gastroesophageal reflux disease without esophagitis Take 1 (one) tablet by mouth once daily 90 tablet 1 10/13/19 24 Active Additional Information Patient taking differently:40 mg OralDAILY PRN, Reported on 12/17/2023 rosuvastatin (Crestor) 10 MG tabletIndications: Mixed hyperlipidemia TAKE 1 TABLET BY MOUTH ONE TIME PER WEEK 12 tablet 3 10/13/19 24 Active vibegron (Gemtesa) 75 MG tablet Take 1 (one) tablet by mouth once daily 90 tablet 3 11/26/19 24 Active nystatin (Mycostatin) 261908 UNIT/GM ointment Apply to vulva twice daily 30 g 3 11/26/19 24 Active Xarelto 20 MG tabletIndications: Recurrent pulmonary embolism (HCC) TAKE 1 TABLET BY MOUTH EVERY DAY BEFORE DINNER 90 tablet 1 12/07/19 24 Active metFORMIN (Glucophage) 500 MG tabletIndications: 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HCC) TAKE 2 (TWO) TABLETS BY MOUTH EVERY MORNING AND 1 (ONE) TABLET DAILY WITH DINNER. 270 tablet 3 01/27/20 24 Active predniSONE (Deltasone) 5 MG tabletIndications: Rheumatoid arthritis involving multiple sites with positive rheumatoid factor (HCC) TAKE 1 TABLET BY MOUTH EVERY DAY 90 tablet 1 02/02/20 24 Active SITagliptin (Januvia) 100 MG tabletIndications: Type 2 Diabetes Mellitus Take 1 (one) tablet by mouth once daily Reasons: Type 2 Diabetes 90 tablet 1 02/03/20 24 Active nitroGLYCERIN (Nitrostat) 0.4 MG tablet DISSOLVE 1 (ONE) TABLET UNDER THE TONGUE EVERY 5 MINUTES NEEDED FOR ANGINA 25 tablet 02/16/20 24 Active levothyroxine (Synthroid) 88 MCG tabletIndications: Postablative hypothyroidism Take 1 (one) tablet by mouth once daily 90 tablet 1 03/16/19 25 Active HYDROcodone-acetam inophen (Portage) 5-325 MG tabletIndications: Rheumatoid arthritis involving multiple sites, unspecified whether rheumatoid factor present (HCC) Take 1 (one) tablet to 2 (two) tablets by mouth 2 times daily 90 tablet 03/25/19 25 Active furosemide (Lasix) 20 MG tabletIndications: Chronic diastolic heart failure (HCC) TAKE 2 TABLETS BY MOUTH EVERY DAY 180 tablet 1 04/27/19 25 Active furosemide (Lasix) 20 MG tabletIndications: Chronic diastolic heart failure (HCC) TAKE 2 TABLETS BY MOUTH EVERY DAY 180 tablet 1 12/11/19 24 025 Discontinued diazePAM (Valium) 10 MG tablet Take 1 (one) tablet by mouth pre-Procedure once for 1 dose 1 tablet 05/04/19 25 025 Active Problems Problem Noted Date Diagnosed Date [...] Mammogram: Result: Not avail in chart Date: Encounters Date Type Department Care Team Description 05/09/2024 Refill [facility] Internal Medicine [address] [place] [phone] Mercedes Collins MD MEDICATION REFILL 05/04/2024 Telephone [facility] Internal Medicine [address] [place] [phone] Mercedes Collins MD Procedure Prior Auth Request ([facility]) 04/26/2024 Telephone [facility] Internal Medicine [address] [place] [phone] Mercedes Collins MD Results (/) 04/25/2024 Telephone [facility] Internal Medicine [address] [place] [phone] Mercedes Collins MD Results 04/25/[address] [phone] Mercedes Collins MD Refill Request 04/15/2024 Telephone [facility] Internal [address] [phone] Mercedes Collins MD Appointment; Reminder Call; Pain Abdominal 04/14/2024 Telephone [facility] Internal Medicine [address] [place] [phone] Mercedes Collins MD Update 03/24/2024 Refill [facility] Internal Medicine [address] [place] [phone] Mercedes Collins MD MEDICATION REFILL 03/08/2024 Refill [facility] Internal Medicine [address] [place] [address] [place] [phone] Mercedes Collins MD Refill Request 02/15/2024 Refill [facility] - Internal Medicine [address] [facility] [address] [place] [phone] Mercedes Collins MD Refill Request from Last 3 Months Immunizations Name Administration Dates Next Due INFLUENZA VACCINE, TRIV. (AF LURIA, FLUZONE TRIVALENT; 6MO+) (IIV3) 12/30/2011,11/19/2010 Covid Watch Over Me primary monoval ent 12+ yr 0.3mL Purple [...] Comments Blood Pressure 128/74 02/03/2024 1:14 PM [facility]ER Pulse 102 02/03/2024 1:14 PM [facility] Temperature 36.7 C (98.1 F) 02/03/2024 1:14 PM [facility] Respiratory Rate 18 01/21/2023 4:54 PM [facility] Oxygen Saturation 99% 02/03/2024 1:14 PM [facility]ER Inhaled Oxygen Concentration 21% 07/18/2020 7 :57 AM CDT Weight 106.7 kg (235 lb 3.2 oz) 02/03/2024 1:14 PM [facility] Height 175.3 cm (5' 9.02 ) 02/03/2024 1:14 PM CS T Body Mass Index 34.72 02/03/2024 1:14 PM [facility]ER Plan of Treatment Upcoming Encounters Date Type Department Care Team (Late st Contact Info) Description 06/07/2024 1:20 PM CDT Office Visit [facility] - Internal Medicine [address] [facility] [address] [place] [phone] Mercedes Collins MD [address] [place] [phone] 12/01/2024 11:45 AM CDT Office Visit [facility] - RETAIL FIELD [facility] [address] [phone] Peterson Nance MD [address] [place] [phone] Health Maintenance Due Date Last Done [...] complete this topic MENINGOCOCCAL (Group B) VACCINE SHARED DECISION-MAKING Aged Out No longer eligible based on patient's age to complete this topic MENINGOCOCCAL GROUPS A/C/Y/W VACCINE Aged Out No longer eligible based on patient's age to complete this topic Procedures Procedure Name Priority Date/Time Associated Diagnosis Comments IMAGING/RADIOLOGY/XR AY RESULTS ORDER 04/25/2024 IMAGING/RADIOLOGY/XR AY RESULTS ORDER 04/25/2024 IMAGING/RADIOLOGY/XR AY RESULTS ORDER 04/24/2024 HEMOGLOBIN A1C - POINT OF CARE (AMB) Routine 02/03/2024 1:15 PM [facility]ER Type 2 diabetes mellitus with diabetic neuropathy, without long-term current use of insulin MICROALB/CREAT RATIO URINE RANDOM PANEL Routine 10/17/2023 10:25 AM CDT Type 2 diabetes mellitus with diabetic neuropathy, without long-term current use of insulin COMPREHENSIVE METABOLIC PANEL Routine 10/17/2023 10:25 AM CDT Type 2 diabetes mellitus with diabetic neuropathy, without long-term current use of insulin MAMMO BILAT SCREENING W HUGO Routine 10/13/2023 2:54 PM CDT Encounter for screening mammogram for malignant neoplasm of breast SCAN ONLY HIS OPIOID MED AGREEMENT 10/13/2023 EYE EXAM 06/13/2022 HPV DETECTION HIGH RISK MELINDA Routine 11/02/2020 2:27 PM CDT Well woman exam with routine gynecological exam HIV-1 HIV-2 ANTIBODY + HIV P24 AG PANEL Routine 02/24/2020 8:11 AM [facility]ER Screening for HIV (human immunodeficiency virus) ENDOSCOPY, COLON, SCREENING Routine 01/25/2016 9:18 AM [facility] HEPATITIS C ANTIBODY Routine 11/30/2012 12:54 PM CDT Need for hepatitis C screening test from Last 3 Months or Most Recently Relevant to Health Maintenance Results * IMAGING RADIOLOGY XRAY RESULTS ORDER (04/25/2024) Only the most recent of3 resultswithin the time period is included. Anatomical Region Laterality Modality Other 04/25/2024 Narrative 04/25/2024 Ordered by an unspecified provider. Scanned Document IMAGING * HEMOGLOBIN A1C - POINT OF CARE (HgbA1C) (02/03/2024 1:15 PM [facility]ER RUBBER) Hemoglobin A1c POCT 8.4 % [facility] Expiration Date 10/06/[address] [facility] Lot # [id number] [facility] QC Verified Yes Yes [facility] Blood BLOOD SPECIMEN / Unknown 02/03/2024 1:15 PM [facility]ER Mercedes Collins MD LAB - POINT OF CARE ORDERABLES [facility] [address] [phone] * MICROALB/CREAT RATIO URINE RANDOM PANEL (10/17/2023 [...] Resulting Agency Comment Lab Testing performed at: [address] [phone] Mercedes Collins MD LAB - URINE CHEMISTR Y ORDERABLES [facility] INSURANCE BILL [address] [place] [address] * (ABNORMAL) COMPREHENSIVE METABOLIC PANEL (10/17/2023 10:25 [...] Resulting Agency Comment Lab Testing performed at: [facility] [address] [facility] [phone] Mercedes Collins MD LAB - CHEMISTRY RORY [place] INSURANCE BILL [address] [place] [address] * Mammo Bilat Screening W [place] (10/13/2023 [...] Human Papilloma Interp 11/07/2020 5:01 PM CDT [facility] Comment:High Risk Human Dev lloma Virus was Not Detected. Pathology/Cytolo gy MISCELLANEOUS SAMPLES / Unknown 11/02/2020 2:27 PM CDT 11/05/2020 12:05 PM CDT Narrative [facility] - 11/07/2020 5:01 PM CDT [...] Nance MD LAB - MICROBIOLOGY O AVILA [facility] [address] [phone] * HIV-1 HIV-2 ANTIBODY + HIV P24 AG PANEL (02/24/2020 8:11 AM VALVE [facility]ER RUBBER) Pathologist [facility] HIV Screen 4th Generation w Reflex Non Reactive Non Reactive [facility] INSURANCE BILL Blood BLOOD SPECIMEN / Unknown 02/24/2020 8:11 AM [facility] RUBBER 02/24/2020 Narrative Resulting Agency Comment Lab Testing performed at: [facility] [address] [facility] [phone] Mercedes Collins MD LAB - CHEMISTRY [facility] [place] Performing Organization Address City/[facility]/ZIP Co de Phone Number [facility] INSURANCE BILL [address] [place] [address] * ENDOSCOPY, COLON, SCREENING (01/25/2016 9:18 AM [facility]ER RUBBER) Report Endoscopy POC _ Patient Name: Pola [...] colon cancer. Procedure Code(s): --- Professional --- 27416, Colonoscopy, flexible; diagnostic, including collection of specimen(s) by brushing or washing, when performed (separate procedure) --- Technical --- 91597, Colonoscopy, flexible; diagnostic, including collection of specimen(s) [...] or abscess without bleeding CPT copyright 2015 [employer]. All rights reserved. The codes documented in this report are preliminary and upon remote coders review may be revised to meet current compliance requirements. Nikita Fraser MD 01/25/2016 9:58:01 AM This report has been signed electronically. Number of Addenda: 0 Note Initiated On: 01/25/2016 9:18 AM [facility] ENDOSCOPY 01/25/2016 9:18 AM [facility]BBER Nikita Fraser MD GI PROCEDURE ORDERAB LES [facility] ENDOSCOPY * HEPATITIS C ANTIBODY [...] a more specific supplemental or PCR testing. [facility] offers HCV Ab w/Reflex to Verification test #[id number]. Blood specimen (specimen) BLOOD SPECIMEN / Unknown 11/30/2012 12:54 PM CDT 11/30/2012 7:02 PM CDT Narrative Resulting Agency Comment [facility] [address] [phone] José Ashton MD LAB - CHEMISTRY RORY [place] [facility] INSURANCE BILL from Last 3 Months or Most Recently Relevant to Health Maintenance Advance Directives Documents on File Type Date Recorded Patient Institution Director Expl anation Adv Directive/Living Will/POA 02/20/2013 9:49 [...] 5:18 PM 2010 11:41 PM Care Teams Senior Maintenance Technician Relationship Specialty Start Date End Date Mercedes Collins MD [address] [place] [address] [address] [place] [phone] PCP - General Internal Medicine 05/17/19 Mercedes Collins MD [address] [place] [address] [address] [place] [phone] PCP - [facility] 02/16/23 Chucky Menendez MD [address] [place] [address] [address] [place] [address] Drug Clerk Pulmonary Disease 09/20/15 Wade Zelaya Jr., MD [address] [place] [phone] Rheumatology 12/01/16 [place] [address] [place], [place] [phone] Orthopedic Surgery 12/01/16 Ramsey Barbosa MD [address] [address] Internal Medicine 10/29/22
--- OUTSIDE RECORDS SUMMARY | 2024-05-10 08:24 | XMS_ITS | Clinical Summary ---
Author Organization [facility] Address [address] [place] [address] Care Team Providers Care Field Manager Name Role Phone Mercedes Collins MD Primary Care Provider + Andrzej Grimes OD Unavailable [phone] Ramsey Barbosa MD Unavailable [phone] Juana Leal RN Unavailable [phone] Allergies Active Allergy Reactions Criticality Noted Date Comments Ciprofloxacin Rash,Unknown,Diarrh ea,Urticaria High 09/10/2009 Leflunomide Unknown High 12/11/2015 Levofloxacin Other (See comments),Unknown Low 02/19/2009 Ruptured ligaments Lisinopril Other (See comments) Low 04/14/2024 Unsure of reaction, states was taken off for either diarrhea or swelling Simvastatin Other (See comments) Low 01/25/2016 Bone pain Bone pain Thznlxy-Vaq-Ixm Reductase Inhibitors Muscle pain,Unknown Medium 05/18/2014 Medications [...] HCV Assessment & Plan (04/19/2024 1:31 PM DEICER INSPECTOR PNEUMATIC): No active inflammation, call if experiencing flare Assessment & Plan (04/17/2023 10:29 AM DEICER INSPECTOR PNEUMATIC): Quiet both eyes (OU), RTC if experiencing flare Assessment & Plan (04/18/2022 12:13 PM DEICER INSPECTOR PNEUMATIC): No sign of inflammation or sequelae from uveitis PLAN observe Diabetes mellitus type 2 without retinopathy 04/2022 Assessment & Plan (04/19/2024 1:31 PM DEICER INSPECTOR PNEUMATIC): Pt ed. Stressed BG control (HbA1C<7) to reduce the risk for diabetic ocular complications. Lab Results Component Value Date HGBA1C 5.8 (H) 06/01/2015 Assessment & Plan (04/17/2023 10:29 AM DEICER INSPECTOR PNEUMATIC): No retinopathy both eyes (OU). Pt ed. Stressed BG control (HbA1C<7) to reduce the risk for diabetic ocular complications. Lab Results Component Value Date HGBA1C 5.8 (H) 06/01/2015 Osteopenia 02/22/2022 Esophageal reflux 12/10/2021 Age-related cataract of both eyes 04/15/2021 Assessment & Plan (04/19/2024 1:31 PM DEICER INSPECTOR PNEUMATIC): Not v/s, monitor Assessment & Plan (05/06/2023 9:14 AM CDT): Stable best-corrected visual acuity (BVA), monitor Release updated glasses Rx Assessment & Plan (04/15/2021 11:03 AM DEICER INSPECTOR PNEUMATIC): She is not bothered, observe Right rotator [...] 09/02/2020 Assessment & Plan (04/15/2021 11:02 AM DEICER INSPECTOR PNEUMATIC): She has no active inflammation today. Follow [...] Department Care Team Description 04/20/2024 Orders Only [facility] [address] [place] [address] Caryn Ruiz RN 04/19/2024 10:45 AM DEICER INSPECTOR PNEUMATIC Office Visit [facility] Ophthalmology [address] 6th Floor, [address] [facility] [place] [phone] Jennifer Mar, OD Bilateral chronic anterior uveitis (Primary Dx); Age-related cataract of both eyes; Diabetes mellitus type 2 without retinopathy (HCC) 04/18/2024 10:38 AM DEICER INSPECTOR PNEUMATIC - 04/18/2024 11:59 PM DEICER INSPECTOR PNEUMATIC Hospital Encounter [facility] [address] [place] [phone] Chronic pain of right ankle Discharge Disposition: Discharge to home or self care 04/18/2024 10:37 AM DEICER INSPECTOR PNEUMATIC - 04/18/2024 11:59 PM DEICER INSPECTOR PNEUMATIC Hospital Encounter [facility] [address] [place] [phone] Right foot pain Discharge Disposition: Discharge to home or self care 04/18/2024 10:20 AM DEICER INSPECTOR PNEUMATIC - 04/18/2024 11:59 PM DEICER INSPECTOR PNEUMATIC Hospital Encounter [facility] [address] [place] [phone] Left foot pain Discharge Disposition: Discharge to home or self care 04/18/2024 10:15 AM DEICER INSPECTOR PNEUMATIC - 04/18/2024 11:59 PM DEICER INSPECTOR PNEUMATIC Hospital Encounter [facility] [address] [place] [phone] Left ankle pain, unspecified chronicity Discharge Disposition: Discharge to home or self care 04/18/2024 10:00 AM DEICER INSPECTOR PNEUMATIC Office Visit [facility] Orthopaedic Surgery [address] [place] [address] 2nd Floor [address] [place] [address] Joy Dang NP Osteoarthritis of left ankle and foot (Primary Dx); Left foot pain; Left ankle pain, unspecified chronicity; Follow-up exam; Right foot pain; Chronic pain of right ankle; Osteoarthritis of right ankle and foot; Pes planovalgus; Crossover toe deformity of right foot 04/14/2024 5:19 PM DEICER INSPECTOR PNEUMATIC - 04/14/2024 10:59 PM DEICER INSPECTOR PNEUMATIC Emergency [facility] Emergency Department [address] [facility] [place] [phone] Garcia Louis MD PhD Abdominal pain (Primary Dx); Bloating Discharge Disposition: Discharge to home or self care 04/14/2024 1:30 PM DEICER INSPECTOR PNEUMATIC Infusion [facility] [address] [place] [phone] High risk medication use (Primary Dx); Rheumatoid arthritis involving multiple sites with positive rheumatoid factor (HCC) 04/13/2024 11:45 AM DEICER INSPECTOR PNEUMATIC Office Visit [facility] Pulmonary [place] [address] [place] [address] Seble Mejia MD Abnormal CT of the chest (Primary Dx); Chronic obstructive pulmonary disease, unspecified COPD type (HCC) 04/12/2024 Telephone [facility] [place] [phone] Gorge [place], ABHILASH 03/24/2024 Orders Only [facility] [address] [place] [phone] Pancho Thapa RN 03/17/2024 2:54 PM DEICER INSPECTOR PNEUMATIC - 03/17/2024 11:59 PM DEICER INSPECTOR PNEUMATIC Hospital Encounter [facility] Respiratory Therapy [address] [place] [address] Abnormal PFT; Interstitial lung disease (HCC) Discharge Disposition: Discharge to home or self care 03/03/2024 9:30 AM DEICER INSPECTOR PNEUMATIC Infusion [facility] Infusion Therapy [address] [place] [address] Medicine 5th [place] [address] [place] [address] Rheumatoid arthritis involving multiple sites with positive rheumatoid factor (HCC) (Primary Dx) 02/22/2024 Telephone [facility] Rheumatology [address] [facility] Medical Office [address] [place] [address] Bonnie Neri RMA Prior Auth (Orencia (abatecept)) 02/19/2024 11:07 AM DEICER INSPECTOR PNEUMATIC - 02/19/2024 11:59 PM DEICER INSPECTOR PNEUMATIC Hospital Encounter [facility] [address] [place] [address] Rheumatoid arthritis involving multiple sites with positive rheumatoid factor (HCC) Discharge Disposition: Discharge to home or self care 02/19/2024 10:55 AM DEICER INSPECTOR PNEUMATIC Lab [facility] Endocrinology Metabolism and Lipid [address] [facility] 5th [place] [address] [place] [address] Rheumatoid arthritis involving multiple sites with positive rheumatoid factor (HCC) 02/19/2024 9:30 AM DEICER INSPECTOR PNEUMATIC Office Visit [facility] Rheumatology [address] 5th [place] [address] [place] [address] Jeremi López MD PhD Rheumatoid arthritis involving multiple sites with positive rheumatoid factor (HCC) (Primary Dx); Current chronic use of systemic steroids; Long-term use of infliximab; High risk medication use from Last 3 Months Surgical History Surgery Date Site/Laterality Comments [place] LIG/TRNSXJ FLP TUBE ABDL/ VAG APPR UNI/BI Tubal Ligation - (Added by TW Conv) ARTHRODESIS Arthrodesis Cervical - (Added by TW Conv) [place] CHOLECYSTECTOMY Cholecystectomy - (Added by Conv) SECTION [...] on file Legal Sex Female 7:32 PM DEICER INSPECTOR PNEUMATIC Gender Identity Not on file Sexual Orientation Not on file Obstetrics History Last Filed Vital Signs Vital Sign Reading Time Taken Comments Blood Pressure 132/97 04/14/2024 8:04 PM DEICER INSPECTOR PNEUMATIC Pulse 80 04/14/2024 8:04 PM DEICER INSPECTOR PNEUMATIC Temperature 36.4 C (97.5 F) 04/14/2024 3:02 PM DEICER INSPECTOR PNEUMATIC Respiratory Rate 18 04/14/2024 8:04 PM DEICER INSPECTOR PNEUMATIC Oxygen Saturation 99% 04/14/2024 8:04 PM DEICER INSPECTOR PNEUMATIC Inhaled Oxygen Concentration - - Weight 106.6 kg (235 lb) 04/18/2024 10:20 AM DEICER INSPECTOR PNEUMATIC Height 176.5 cm (5' 9.5 ) 04/18/2024 10:20 AM CS T Body Mass Index 34.21 04/18/2024 10:20 AM DEICER INSPECTOR PNEUMATIC Plan of Treatment Health Maintenance Due Date [...] Read Routine (OP Routine) 04/18/2024 10:48 AM DEICER INSPECTOR PNEUMATIC Right foot pain XR FOOT LEFT 3 OR MORE VIEWS Schedule Routine, Read Routine (OP Routine) 04/18/2024 10:48 AM DEICER INSPECTOR PNEUMATIC Left foot pain XR ANKLE LEFT 3 OR MORE VIEWS Schedule Routine, Read Routine (OP Routine) 04/18/2024 10:48 AM DEICER INSPECTOR PNEUMATIC Left ankle pain, unspecified chronicity XR ANKLE RIGHT 3 OR MORE VIEWS Schedule Routine, Read Routine (OP Routine) 04/18/2024 10:48 AM DEICER INSPECTOR PNEUMATIC Chronic pain of right ankle URINALYSIS AND REFLEX TO MICROSCOPIC STAT 04/14/2024 5:50 PM DEICER INSPECTOR PNEUMATIC POCT GLUCOSE DEVICE Routine 04/14/2024 5 :39 PM DEICER INSPECTOR PNEUMATIC TROPONIN I HIGH-SENSITIVITY 2-HOUR Timed 04/14/2024 5:31 PM DEICER INSPECTOR PNEUMATIC ECG 12-LEAD STAT 04/14/2024 3:38 PM DEICER INSPECTOR PNEUMATIC EGFR STAT 04/14/2024 3:25 PM DEICER INSPECTOR PNEUMATIC DIFFERENTIAL AUTO STAT 04/14/2024 3:2 5 PM DEICER INSPECTOR PNEUMATIC TROPONIN I HIGH-SENSITIVITY SERIES (BASELINE, 2HR, 4HR, 6HR) STAT 04/14/2024 3:25 PM DEICER INSPECTOR PNEUMATIC LIPASE STAT 04/14/2024 3:25 PM DEICER INSPECTOR PNEUMATIC COMPREHENSIVE METABOLIC PANEL STAT 04/14/2024 3:25 PM DEICER INSPECTOR PNEUMATIC CBC WITH AUTO DIFFERENTIAL STAT 04/14/2024 3:25 PM DEICER INSPECTOR PNEUMATIC POCT GLUCOSE DEVICE Routine 04/14/2024 3 :16 PM DEICER INSPECTOR PNEUMATIC PULMONARY FUNCTION TEST (PFT) Routine 03/17/2024 3:55 PM DEICER INSPECTOR PNEUMATIC Abnormal PFT Interstitial lung disease (HCC) IMMUNOGLOBULIN PROFILE Routine 02/19/2024 11:07 AM DEICER INSPECTOR PNEUMATIC Rheumatoid arthritis involving multiple sites with positive rheumatoid factor (HCC) CRP (ACUTE PHASE) Routine 02/19/2024 11: 07 AM DEICER INSPECTOR PNEUMATIC Rheumatoid arthritis involving multiple sites with positive rheumatoid factor (HCC) COMPREHENSIVE METABOLIC PANEL Routine 02/19/2024 11:07 AM DEICER INSPECTOR PNEUMATIC Rheumatoid arthritis involving multiple sites with positive rheumatoid factor (HCC) CBC WITH AUTO DIFFERENTIAL Routine 02/19/2024 11:07 AM DEICER INSPECTOR PNEUMATIC Rheumatoid arthritis involving multiple sites with positive rheumatoid factor (HCC) HEPATITIS C ANTIBODY Routine Gen Lab 01/23/2017 1:16 PM DEICER INSPECTOR PNEUMATIC SCREENING MAMMOGRAM Routine 10/19/2012 1 2:46 PM CDT SERUM LIPID PANEL Routine 10/19/2012 12: 05 PM CDT from Last 3 Months or Most Recently Relevant to Health Maintenance Results * XR Foot Right 3+ View (04/18/2024 10:48 AM DEICER INSPECTOR PNEUMATIC) Anatomical Region Laterality Modality Lower Extremities, Foot Right Computed Radiography 04/18/2024 3:07 PM DEICER INSPECTOR PNEUMATIC Impressions 04/18/2024 6:19 PM DEICER INSPECTOR PNEUMATIC 1. 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 2. Mild right mid and hindfoot osteoarthritis. Dictated by: Matthew Chapin MD PHD The radiology attending physician has personally reviewed this study, and had reviewed and/or edited this written report and agrees with it. Electronically signed by: MD Jesús Dubois 04/18/2024 6:19 PM DEICER INSPECTOR PNEUMATIC EXAMINATION: 1. XR ANKLE LEFT 3+ VIEWS [...] Foot Left 3+ View (04/18/2024 10:48 AM DEICER INSPECTOR PNEUMATIC) Anatomical Region Laterality Modality Lower Extremities, Foot Left Computed Radiography 04/18/2024 3:07 PM DEICER INSPECTOR PNEUMATIC Impressions 04/18/2024 6:19 PM DEICER INSPECTOR PNEUMATIC 1. 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 2. Mild right mid and hindfoot osteoarthritis. Dictated by: Matthew Chapin MD PHD The radiology attending physician has personally reviewed this study, and had reviewed and/or edited this written report and agrees with it. Electronically signed by: Kevin Hermosillo MD Narrative 04/18/2024 6:19 PM DEICER INSPECTOR PNEUMATIC EXAMINATION: 1. XR ANKLE LEFT 3+ VIEWS [...] Ankle Left 3+ View (04/18/2024 10:48 AM DEICER INSPECTOR PNEUMATIC) Anatomical Region Laterality Modality Lower Extremities, Ankle Left Compute d Radiography 04/18/2024 3:07 PM DEICER INSPECTOR PNEUMATIC Impressions 04/18/2024 6:19 PM DEICER INSPECTOR PNEUMATIC 1. 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 2. Mild right mid and hindfoot osteoarthritis. Dictated by: Matthew Chapin MD PHD The radiology attending physician has personally reviewed this study, and had reviewed and/or edited this written report and agrees with it. Electronically signed by: Kevin Hermosillo MD Narrative 04/18/2024 6:19 PM DEICER INSPECTOR PNEUMATIC EXAMINATION: 1. XR ANKLE LEFT 3+ VIEWS [...] it. Electronically signed by: Kevin Hermosillo MD [facility] IM XR PROCEDURES Final Result * XR Ankle Right 3+ View (04/18/2024 10:48 AM DEICER INSPECTOR PNEUMATIC) Anatomical Region Laterality Modality Lower Extremities, Ankle Right Compute d Radiography 04/18/2024 3:07 PM DEICER INSPECTOR PNEUMATIC Impressions 04/18/2024 6:19 PM DEICER INSPECTOR PNEUMATIC 1. 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 2. Mild right mid and hindfoot osteoarthritis. Dictated by: Matthew Chapin MD PHD The radiology attending physician has personally reviewed this study, and had reviewed and/or edited this written report and agrees with it. Electronically signed by: Kevin Hermosillo MD Narrative 04/18/2024 6:19 PM DEICER INSPECTOR PNEUMATIC EXAMINATION: 1. XR ANKLE LEFT 3+ VIEWS [...] signed by: Kevin Hermosillo MD Joy D[employer] IMG XR PROCEDURES Final Result * Urinalysis reflex to microscopic (04/14/2024 5:50 PM DEICER INSPECTOR PNEUMATIC) Color, ur Straw Yellow Clarity, ur Clear Clear [facility] Specific gravity, ur 1.006 1.003 - 1.030 [facility] pH, urine 7.0 [facility] Comment: Interpretive Data U rine pH is affected by diet, medications, systemic acid-base disturbances, and renal tubular function. pH may affect urinary stone formation. For example, urine pH below 6.0 may help reduce the tendency for calcium phosphate stones and pH greater than 6.0 may reduce the tendency for uric acid stone formation. Source: [employer] Current Interpretive Data was last revised on 2017 Protein, ur ql Negative Negative [facility] Glucose, ur ql Negative Negative [facility] Ketones, ur Negative Negative [facility] Bilirubin, ur Negative Negative [facility] Blood, ur Negative Negative [facility] Urobilinogen, ur <2.0 <2.0 mg/dL [facility] Nitrite, ur Negative Negative [facility] Leukocyte esterase, ur Negative Negative [facility] UA reflex comment Reflex conditions for microscopic UA not met. [facility] Urine 04/14/2024 5:50 PM DEICER INSPECTOR PNEUMATIC 04/14/2024 5:58 PM DEICER INSPECTOR PNEUMATIC Garcia Louis MD PhD LAB URINE ORDERABLE S Final Result Performing Organization Address [facility] de Phone Number [facility] [place] [address] * POCT glucose (04/14/2024 5:39 PM DEICER INSPECTOR PNEUMATIC) Glucose, POC 123 70 - 199 mg/dL Blood 04/14/2024 5:39 PM DEICER INSPECTOR PNEUMATIC 04/14/2024 5:39 PM DEICER INSPECTOR PNEUMATIC Notinfile Unknown LAB POCT ORDERABLES - DEVICE F inal Result Performing Organization Address [facility] [place] [address] * Troponin I high-sensitivity 2-hour (04/14/2024 5:31 PM DEICER INSPECTOR PNEUMATIC) Trop I hs <4 <=17 ng/L Comment: Interpretive Data For further hscTnI resources including the diagnostic algorithm and an aid in interpretation, copy and paste this link: https://bjhlab.testcatalog.org/show/hsTrop-[email or web address] Current Interpretive Data last revised 2019. Trop I hs delta 0 ng/L [facility] Trop I hs interp Insignificant [facility] Blood 04/14/2024 5:31 PM DEICER INSPECTOR PNEUMATIC 04/14/2024 5:36 PM DEICER INSPECTOR PNEUMATIC Angel Davison MD LAB BLOOD ORDERABLES F inal Result Performing Organization Address [facility] [employer] de Phone Number [facility] [place] [address] * ECG 12-LEAD (04/14/2024 3:38 PM DEICER INSPECTOR PNEUMATIC) Narrative [facility] - 04/14/2024 3:38 PM DEICER INSPECTOR PNEUMATIC Gabriel Gunn MD 04/14/2024 3:39 PM ECG [...] MD PhD ECG ORDERABLES Fin al Result [facility] * Troponin I high-sensitivity series (baseline, 2hr, 4hr, 6hr) (04/14/2024 3:25 PM DEICER INSPECTOR PNEUMATIC) Pathologist [facility] Trop I hs <4 <=17 ng/L Comment: Interpretive Data For further hscTnI resources including the diagnostic algorithm and an aid in interpretation, copy and paste this link: https://bjhlab.testcatalog.org/show/hsTrop-1 Current Interpretive Data last revised 2019. Blood 04/14/2024 3:25 PM DEICER INSPECTOR PNEUMATIC 04/14/2024 3:50 PM DEICER INSPECTOR PNEUMATIC us Garcia Louis MD PhD LAB BLOOD ORDERABLE S Final Result Performing Organization Address City/[facility]/ZIP Co de Phone Number [facility] Department [place] [address] * eGFR (04/14/2024 3:25 PM DEICER INSPECTOR PNEUMATIC) Pathologist [facility] eGFR 89 >=60 mL/min/1. 73 m2 Comment: [...] last reviewed 2020. Blood 04/14/2024 3:25 PM DEICER INSPECTOR PNEUMATIC 04/14/2024 3:50 PM DEICER INSPECTOR PNEUMATIC us Garcia Louis MD PhD LAB BLOOD ORDERABLE S Final Result [facility] [place] [address] * Differential, auto (04/14/2024 3:25 PM DEICER INSPECTOR PNEUMATIC) Pathologist [facility] Neutrophil abs 6.3 1.5 - 6.5 K/cumm Imm gran abs 0.1 0.0 - 0.1 K/cumm [facility] Lymphocyte abs 2.2 0.8 - 3.3 K/cumm [facility] Monocyte abs 0.5 0.2 - 0.8 K/cumm [facility] Eosinophil abs 0.1 0.0 - 0.5 K/cumm [facility] Basophil abs 0.0 0.0 - 0.1 K/cumm [facility] Neutrophil pct 68.8 % [facility] Comment: Interpretive Data Percent cell count reference ranges are not reported, since discordance with absolute values may lead to misinterpretation of CBC data. Current Interpretive Data was last revised on 2017. Imm gran pct 0.7 % [facility] Comment: Interpretive Data Percent cell count reference ranges are not reported, since discordance with absolute values may lead to misinterpretation of CBC data. Current Interpretive Data was last revised on 2017. Lymphocyte pct 23.7 % [facility] Comment: Interpretive Data Percent cell count reference ranges are not reported, since discordance with absolute values may lead to misinterpretation of CBC data. Current Interpretive Data was last revised on 2017. Monocyte pct 5.3 % [facility] Comment: Interpretive Data Percent cell count reference ranges are not reported, since discordance with absolute values may lead to misinterpretation of CBC data. Current Interpretive Data was last revised on 2017. Eosinophil pct 1.1 % [facility] Comment: Interpretive Data Percent cell count reference ranges are not reported, since discordance with absolute values may lead to misinterpretation of CBC data. Current Interpretive Data was last revised on 2017. Basophil pct 0.4 % [facility] Comment: Interpretive Data Percent cell count reference ranges are not reported, since discordance with absolute values may lead to misinterpretation of CBC data. Current Interpretive Data was last revised on 2017. Blood 04/14/2024 3:25 PM DEICER INSPECTOR PNEUMATIC 04/14/2024 3:50 PM DEICER INSPECTOR PNEUMATIC us Garcia Louis MD PhD LAB BLOOD ORDERABLE S Final Result [facility] [place] [address] * CBC with auto differential (04/14/2024 3:25 PM DEICER INSPECTOR PNEUMATIC) WBC 9.1 3.8 - 9.9 K/cumm Hgb 12.9 11.9 - 15.5 g/dL [facility] Hct 39.0 35.6 - 45.5 % [facility] Plt 313 150 - 400 K/cumm [facility] MPV 9.5 9.1 - 12.3 fL [facility] RBC 4.55 3.90 - 5.20 M/cumm [facility] MCV 85.7 81.3 - 96.4 fL [facility] MCH 28.4 27.1 - 33.3 pg [facility] MCHC 33.1 32.3 - 35.7 g/dL [facility] RDW CV 12.6 11.1 - 14.9 % [facility] RDW SD 39.2 35.7 - 48.1 fL [facility] NRBC abs 0.00 0.00 - 0.01 K/cumm [facility] Blood Venous blood specimen / Unknown 04/14/2024 3:25 PM DEICER INSPECTOR PNEUMATIC 04/14/2024 3:50 PM DEICER INSPECTOR PNEUMATIC Garcia Louis MD PhD LAB BLOOD ORDERABLE S Final Result Performing Organization Address [facility]/[employer] de Phone Number [facility] [place] [employer] [place] [address] * Lipase (04/14/2024 3:25 PM DEICER INSPECTOR PNEUMATIC) [facility] Lipase 22 10 - 99 Units/L Blood Venous blood specimen / Unknown 04/14/2024 3:25 PM DEICER INSPECTOR PNEUMATIC 04/14/2024 3:50 PM DEICER INSPECTOR PNEUMATIC Garcia Louis MD PhD LAB BLOOD ORDERABLE S Final Result Performing Organization Address City/[facility] de Phone Number [facility] [place] [employer] [place] [address] * Comprehensive metabolic panel (04/14/2024 3:25 PM DEICER INSPECTOR PNEUMATIC) [facility] Sodium 137 135 - 145 mmol/L Potassium, pl 3.9 3.3 - 4.9 mmol/L [facility] Chloride 100 97 - 110 mmol/L [facility] CO2 25 22 - 32 mmol/L [facility] Anion gap 12 2 - 15 mmol/L [facility] BUN 10 6 - 25 mg/dL [facility] Creatinine 0.76 0.60 - 1.10 mg/dL [facility] Glucose 181 70 - 199 mg/dL [facility] Comment: Interpretive Data Fasting glucose >/= [...] 2022. Calcium 9.2 8.5 - 10.3 mg/dL [facility] Bilirubin, total 0.6 0.1 - 1.2 mg/dL [facility] Protein, pl 7.5 6.5 - 8.5 g/dL [facility] Albumin 3.8 3.5 - 5.0 g/dL [facility] Alk phos 74 40 - 130 Units/L [facility] ALT 34 7 - 45 Units/L [facility] AST 28 10 - 45 Units/L [facility] Blood 04/14/2024 3:25 PM DEICER INSPECTOR PNEUMATIC 04/14/2024 3:50 PM DEICER INSPECTOR PNEUMATIC us Garcia Louis MD PhD LAB BLOOD ORDERABLE S Final Result Performing Organization Address City/[facility]/ZIP Co de Phone Number [facility] [place] [place] [address] * POCT glucose (04/14/2024 3:16 PM DEICER INSPECTOR PNEUMATIC) [facility] Glucose, POC 176 70 - 199 mg/dL Blood 04/14/2024 3:16 PM DEICER INSPECTOR PNEUMATIC 04/14/2024 3:16 PM DEICER INSPECTOR PNEUMATIC us Notinfile Unknown LAB POCT ORDERABLES - DEVICE F inal Result Performing Organization Address City/[facility]/ZIP Co de Phone Number [facility] Department [place] [address] * (ABNORMAL) Pulmonary Function Test - (03/17/2024 3:55 PM DEICER INSPECTOR PNEUMATIC) FVC PRE 2.88 2.29 - 4.02 L [facility] FEV1 PRE 2.54 1.77 - 3.11 L [facility] [id number] 88.21 66.97 - 89.03 % [facility] OMR51-05% PRE 3.67 0.89 - 3.92 L/s [facility] PEF PRE 6.81 5.19 - 8.15 L/s [facility] DLCOc SB 18.54(A) 19.82 - 31.29 ml/(min*mm Hg) [facility] DLCO/VA PRE 4.85 3.17 - 5.67 ml/(min*mm Hg*L) [facility] VA 3.82(A) 5.63 - 5.63 L [facility] TLC PRE 4.38(A) 4.79 - 6.76 L [facility] VC PRE 2.88 2.71 - 4.09 L [facility] IC PRE 2.45(A) 2.58 - 2.58 L [facility] FRC PL PRE 1.94(A) 2.17 - 3.81 L [facility] ERV PRE 0.43(A) 0.82 - 0.82 L [facility] RV PRE 1.50(A) 1.59 - 2.74 L [facility] VTG 2.07 L [facility] RAW PRE 3.05(A) 3.06 - 3.06 cmH2O*s/L [facility] Anatomical Region Laterality Modality PFT 03/17/2024 3:06 PM DEICER INSPECTOR PNEUMATIC Impressions 03/20/2024 8:37 PM DEICER INSPECTOR PNEUMATIC 1. [id number] restrictive ventilatory limitation 2. Mild diffusion impairment 3. Ambulatory oximetry was performed and at this level of activity the patient did not require supplemental oxygen Electronically signed by Tristian Carrillo MD Pulmonary & Critical Care Narrative 03/20/2024 8:37 PM DEICER INSPECTOR PNEUMATIC PULMONARY FUNCTION TESTS Joselin Canada 63 y.o. [...] * (ABNORMAL) Immunoglobulin profile (02/19/2024 11:07 AM DEICER INSPECTOR PNEUMATIC) [facility] Immunoglobulin G 1,598 700 - 1,600 mg/dL Immunoglobulin A 313 70 - 400 mg/dL [facility] Immunoglobulin M 245(H) 40 - 230 mg/dL [facility] Blood 02/19/2024 11:0 7 AM DEICER INSPECTOR PNEUMATIC 02/19/2024 1:09 PM DEICER INSPECTOR PNEUMATIC Jeremi López MD PhD LAB BLOOD ORDERABLE S Final Result [facility] [place] [address] * CBC with auto differential (02/19/2024 11:07 AM DEICER INSPECTOR PNEUMATIC) [facility] White Blood Count 7.8 3.6 - [...] - [facility] Blood 02/19/2024 11:0 7 AM DEICER INSPECTOR PNEUMATIC 02/19/2024 12:25 PM DEICER INSPECTOR PNEUMATIC Intelledwin López MD PhD LAB BLOOD ORDERABLE S Final Result Performing Organization Address City/[facility]/[place] Co de Phone Number [facility] * (ABNORMAL) CRP (acute phase) (02/19/2024 11:07 AM DEICER INSPECTOR PNEUMATIC) Pathologist [facility] C-Reactive Protein, Acute 5.8(H) <5.0 mg/L [facility] Blood 02/19/2024 11:0 7 AM DEICER INSPECTOR PNEUMATIC 02/19/2024 12:25 PM DEICER INSPECTOR PNEUMATIC nuPSYSedwin López MD PhD LAB BLOOD ORDERABLE S Final Result Performing Organization Address City/State/[place] Co de Phone Number [facility] * (ABNORMAL) Comprehensive metabolic panel (02/19/2024 11:07 AM DEICER INSPECTOR PNEUMATIC) [facility] Total Protein 7.7 6.1 - 8.4 g/dL [...] - [facility] Blood 02/19/2024 11:0 7 AM DEICER INSPECTOR PNEUMATIC 02/19/2024 12:25 PM DEICER INSPECTOR PNEUMATIC [facility] Cl[facility] L[facility] MD PhD LAB BLOOD ORDERABLE S Final Result [facility] * Hepatitis C antibody (01/23/2017 1:16 PM DEICER INSPECTOR PNEUMATIC) Hep C Ab Nonreactive Nonreactive [facility] Comment: Interpretive Data Positive and greyzone results should be confirmed by a molecular method. If positive or greyzone, a second separately collected sample should be submitted for Hepatitis C Virus RNA. Detection and Quantitation by Real-Time Reverse Assistant Merchandiser-PCR.Current Interpretive data was last revised on 2016. Blood specimen (specimen) 01/23/2017 1:16 PM DEICER INSPECTOR PNEUMATIC 01/23/2017 4:49 PM DEICER INSPECTOR PNEUMATIC Narrative [facility] - 01/24/2017 9:19 AM DEICER INSPECTOR PNEUMATIC us Rocio Ellis MD LAB MICROBIOLOGY - GENERAL OR DERABLES Edited Result - Final [facility] [place] [address] * Screening Mammogram (10/19/2012 12:46 PM CDT) Anatomical Region Laterality Modality Breast N/A Mammography 10/19/2012 12:4 6 PM CDT Narrative 10/20/2012 1:30 PM CDT ANGELICA BYNUM M.D. FINAL REPORT ACC# Date Time Exam [id number] Oct 19, 2012 12:46:00 [facility] [id number] Screening Mamm Bilat Technologist(s): Dilia Gregg; ; EXAMINATION: Mammogram Findings: A Full-Field Digital Screening Mammogram was performed. Views obtained: bilateral craniocaudal; bilateral mediolateral oblique. Computer Aided Detection was performed with BigRep.3 version 9.3. The present examination has been compared to prior imaging studies performed at [facility] on 10/06/2011, 03/05/2010 and 06/23/2008. The breasts are almost entirely fat. There is no suspicious abnormality in either breast. IMPRESSION: Annual screening mammography is recommended. OVERALL FINAL ASSESSMENT: BI-RADS CATEGORY 1: Negative. Requested By: LISA WEINBERG M.D. Dictated By: ANGELICA BYUNM M.D. on Oct 20 2012 1:30P This document has been electronically signed by: ANGELICA BYNUM M.D. on Oct 20 2012 1:30P Procedure Note Provider, MD Issa - 06/10/2016 ANGELICA BYNUM M.D. FINAL REPORT ACC# Date Time Exam [id number] Oct 19, 2012 12:46:00 [facility] [id number] Screening Mamm Bilat Technologist(s): Dilia Gregg; ; EXAMINATION: Mammogram Findings: A Full-Field Digital Screening Mammogram was performed. Views obtained: bilateral craniocaudal; bilateral mediolateral oblique. Computer Aided Detection was performed with BigRep.3 version 9.3. The present examination has been compared to prior imaging studies performed at [facility] on 10/06/2011, 03/05/2010 and 06/23/2008. The [...] Recently Relevant to Health Maintenance [place] [address] [facility] [place] [address] [place] [address] MEDICARE [employer] OPEN ACCESS [facility] [id number] [address] [address] [address] [employer] MED[employer]ARE FOR LIFE Care Teams Field Manager Relationship Specialty Start Date End Date Mercedes Collins MD [address] [facility] [address] [place] [address] PCP - General 06/25/17 Andrzej Grimes, OD [address] [place] [address] Referring Physician Ophthalmology 04/18/20 Ramsey Barbosa MD [address] [place] [address] Golf Instructor Transplant 05/30/21 Juana Leal, RN [address] [facility] [address] [place] [address] Heart Failure Coordinator Metal Welder 05/30/21
--- OUTSIDE RECORDS SUMMARY | 2024-05-10 08:24 | XMS_ITS | Continuity of Care Document ---
Author Organization [employer] Address [address] [place] [address] Phone Care Team Providers Care Women'S Apparel Salesperson Name Role Phone Ivon LAM, Tre Osborn Unavailab le Allergies, Adverse Reactions, Alerts Substance Reaction Status Criticality leflunomide GI Problems(severe) Active No Infor mation Jvavaxz-YCH-KgZ Reductase Inhibitors myalgias(moderate ) Active No Information [...] Do not fill till October 22, 2016 Astepro 0.15 % (205.5 mcg) nasal spray [...] Diagnoses Date Provider Providers Copied on Encounter [employer] HERMEL DELOR, [address], [place], [place], [address] , tel: [phone] [facility] No Information 8 Ivon Toledo. [address], [id number], . tel:[phone] [employer] HERMEL DELOR, [address], [place], [place], [address] , tel: [phone] [facility] No Information 7 Frank Gonzalez. [address] [facility], [place] [address], [place], [place], [address], [place]. tel:[phone] [facility] [address], [place], [place], [address] , tel: [phone] [facility] No Information 7 Ivon Toledo. [address], [address], [place]. [phone] [employer] HERMEL DELOR, [address], [place], [address] , tel: [phone] [facility] No Information 7 Ivon Toledo. [address], [id number], [place]. [phone] [facility], [address], [place], [place], [address] , tel: [phone] [facility] No Information 7 Ivon Toledo. [address], [facility] 107, [place], [place], [address], [place]. tel:[phone] [facility], [address], [place], [place], [address] , [place] tel: [phone] [facility] No Information 7 Mary Ann Threats Shabana. [address], [facility] 107, [place], [place], [address]. tel:[phone] [facility], [address], [place], [place], [address] , [place] tel: [phone] [facility] Hypothyroidism (acquired)Diabetic polyneuropathy associated with type 2 diabetes mellitusChronic diastolic (congestive) heart failureRecurrent pulmonary embolismRheumatoid arthritis involving multiple sites with positive rheumatoid factor Frank Gonzalez. [address] [facility], [address], [place], [place], [address], [place]. tel:[phone] Referring Provider: Tre Del Valle , [address] [place] [address], [place], [address] . tel:[phone] [facility], [address], [place], [place], [address] , [place] tel: [phone] [facility] No Information 7 Mary Ann Threats Shabana. [facility]7 [facility] 107, [place], [place], [address]. tel:[phone] [facility], [address], [place], [place], [address] , [place] tel: [phone] [facility] No Information 7 Mystic Threats Shabana. [address] [place] [address], [facility] 107, [place], [place], [address]. tel:[phone] [facility], [address], [place], [place], [address] , [place] tel: [phone] [facility] URI, acuteUnspecified asthma, uncomplicatedCough 7 Jazmin Nicole. [address], [address], [place], [place], [address], [place]. tel:[phone] Referring Provider: Shabana Maurer, [address], [place], [address] . tel:[phone] [facility], [address], [place], [place], [address] , [place] tel: [phone] [facility] No Information 2 7 Mystickierra Donald. [address], [address], [place], [place], [address]. tel:[phone] [facility], [address], [place], [place], [address] , [place] tel: [phone] [facility] No Information 0 7 Mystickierra Donald. [address], [facility] 107, [place], [place], [address]. tel:[phone] [facility], [address], [place], [place], [address] , [place] tel: [phone] [facility] Recurrent pansinusitisRheumat oid arthritis flareRecurrent pulmonary embolismChronic diastolic (congestive) heart failureDiabetic polyneuropathy associated with type 2 diabetes mellitusHypothyroid ism (acquired)Long-term use of high-risk medication 7 Mary Annkierra Donald. [address], [facility] 107, [place], [place], [address]. tel:[phone] Referring Provider: Shabana Maurer, [address] [place] [address] [address], [place], [address] . tel:[phone] [facility], [address], [place], [place], [address] , [place] tel: [phone] [facility] ThrushAbdominal pain, left lower quadrantHematuria 6 Frank Gonzalez. [address], [address], [place], [place], [address], [place]. tel:[phone] Referring Provider: Shabana Maurer, [facility], [place], [address] . tel:[phone] [facility], [address], [place], [place], [address] , tel: [phone] [facility] Asthma exacerbationChronic diastolic (congestive) heart failureRecurrent pulmonary embolismRheumatoid arthritis flareDiabetic polyneuropathy associated with type 2 diabetes mellitus 6 Mystic Threats Shabana. [address], [address], [place], [place], [address]. tel:[phone] Referring Provider: Shabana Maurer, [address] [place] [address] [address], [place], [address] . tel:[phone] [place] [facility] [address], [place], [place], [address] , tel: [phone] [facility] Sciatica associated with disorder of lumbar spine, leftOther cervical disc displacement, high cervical regionRheumatoid arthritis, unspecifiedChronic diastolic heart failureDiabetic polyneuropathy associated with type 2 diabetes mellitusPharyngitis , unspecified etiology 6 Mary Ann oDnald. [address] [place], [place] [address], [address], [place], [place], [address]. tel:[phone] Referring Provider: Shabana Maurer, [address] [place], [place] [address] [address], [place], [address] . tel:[phone] [place] [facility] [address], [place], [place], [address] , [place] tel:[phone] [facility] Chronic diarrheaDiabetic polyneuropathy associated with type 2 diabetes mellitusRheumatoid arthritis, unspecified 6 Mary Ann Donald. [address], [address], [place], [place], [address]. tel:[phone] Referring Provider: Shabana Maurer, [facility] [address], [place], [address] . tel:[phone] [facility], [address], [place], [place], [address] , [place] tel: [phone] [facility] Diabetic polyneuropathy associated with type 2 diabetes mellitusChronic diastolic heart failureHypothyroidi sm (acquired) 6 Ivon Toledo. [address], [address], [place], [place], [address], [place]. tel:[phone] [facility], [address], [place], [place], [address] , [place] tel: [phone] [facility] Dysuria 6 Mary Ann Donald. [address], [address], [place], [place], [address]. tel:[phone] Referring Provider: Shabana Maurer, [address] [place] [address] [address], [place], [address] . tel:[phone] [facility], [address], [place], [place], [address] , [place] tel: [phone] [facility] Rheumatoid arthritis involving multiple sites with positive rheumatoid factorOther cervical disc displacement, high cervical regionType 2 diabetes mellitus with diabetic neuropathy, unspecifiedOsteopor osis 6 Mary Ann Donald. [address], [address], [place], [place], [address]. tel:[phone] Referring Provider: Shabana Maurer, [facility], [place], [address] . tel:[phone] [facility], [address], [place], [place], [address] , [place] tel: [phone] [facility] Fatigue, unspecified type 5 Frank Gonzalez. [address], [address], [place], [place], [address], [place]. [phone] Referring Provider: Shabana Maurer, [facility], [place], [address] . tel:[phone] [facility], [address], [place], [place], [address] , [place] tel: [phone] [facility] Urgency of urination Sep-0 5 Mary Ann Donald. [address], [facility] 107, [place], [place], [address]. tel:[phone] [facility], [address], [place], [place], [address] , [place] tel: [phone] [facility] ROUTINE MEDICAL EXAMScreening for depressionOther and unspecified angina pectorisOther pulmonary embolism and infarctionRheumatoi d ArthritisPrimary pulmonary hypertensionChronic diastolic heart failureDiabetes mellitus with neurological manifestations, type II or unspecified type, not stated as uncontrolledMononeu ritis of unspecified siteVitamin D deficiencyAnxietyOb structive sleep apnea 5 Mary Ann Donald. [address] [place] [address], [facility] 107, [place], [place], [address]. tel:[phone] Referring Provider: Shabana Maurer, [address] [place] [address], [place], [address] . tel:[phone] [facility], [address], [place], [place], [address] , [place] tel: [phone] [facility] GERD (gastroesophageal reflux disease)Rheumatoid ArthritisAllergic rhinitisDiabetic neuropathyPolyneuro huma in diabetes 0 5 Jazmin Nicole. [address] [place] [address], [place], [place], [address], [place]. tel:[phone] Referring Provider: Shabana Maurer, [address] [place] [address], [place], [address] . tel:[phone] [facility], [address], [place], [place], [address] , tel:[phone] [facility] Otitis mediaPharyngitis 2 5 Jazmin Nicole. [address] [place] [address], [place], [address], [place]. tel:[phone] Referring Provider: Shabana Maurer, [address] [place] [address] [address], [place], [address] . tel:[phone] [facility], [address], [place], [place], [address] , tel: [phone] [facility] No Information 5 Mary Ann Donald. [address], [facility] 107, [place], [place], [address]. tel:[phone] [facility], [address], [place], [place], [address] , [place] tel: [phone] [facility] AsthmaSinus infection 5 Jadon Roth. [facility]7 [facility] 107, [place], [place], [address], [place]. tel:[phone] Referring Provider: Shabana Maurer, [address] [place] [address], [place], [address] . tel:[phone] [facility], [address], [place], [place], [address] , [place] tel: [phone] [facility] Diabetic neuropathyPolyneuro huma in diabetesBenign hypertensive heart diseaseRheumatoid ArthritisHypothyroi dism (acquired)AnxietyAs thma 5 Frank Gonzalez. [address] [facility], [address], [place], [place], [address], [place]. tel:[phone] Referring Provider: Shabana Maurer, [address] [place] [address], [place], [address] . tel:[phone] [facility], [address], [place], [place], [address] , tel: [phone] [facility] Acute bronchitisDiabetic neuropathyAnxietyPo lyneuropathy in diabetes 4 Mary Ann Donald. [facility], [facility] 107, [place], [place], [address]. tel:[phone] Referring Provider: Shabana Maurer, [address] [place] [address] [address], [place], [address] . tel:[phone] [facility], [address], [place], [place], [address] , tel: [phone] [facility] Abnormal glucoseBenign hypertensive heart disease 4 Rolando Vela. [address] [place] [address], [address], [place], [place], [address]. tel:[phone] Referring Provider: Shabana Maurer, [address] [place] [address], [place], [address] . tel:[phone] [facility], [address], [place], [place], [address] , tel: [phone] [facility] Laceration of toe with foreign body with damage to nailThromboembolic disorderNEED FOR PROPHYLACTIC VACCINATION AND INOCULATION AGAINST TETANUS-DIPHTHERIA [TD] (DT) 4 Mary Ann Donald. [address] [place] [address], [address], [place], [place], [address]. tel:[phone] Referring Provider: Shabana Maurer, [address] [place] [address] [address], [place], [address] . tel:[phone] [facility], [address], [place], [place], [address] , [place] tel:[phone] [facility] Benign hypertensive heart diseasePulmonary EmbolusSleep Apnea, ObstructiveDiabetic neuropathyPolyneuro huma in diabetes 4 Mary Ann Donald. [address] [place] [address], [address], [place], [place], [address]. tel:[phone] Referring Provider: Shabana Maurer, [address] [place] [address] [address], [place], [address] . tel:[phone] [facility], [address], [place], [place], [address] , tel:[phone] [facility] Abnormal glucoseHypothyroidi sm (acquired)Rheumatoi d Arthritis 4 Mary Ann Donald. [facility], [facility] 107, [place], [place], [address]. tel:[phone] Referring Provider: Shabana Maurer, [address] [place] [address] [address], [place], [address] . tel:[phone] [facility], [address], [place], [place], [address] , tel: [phone] [facility] Esophageal spasmChest Pain, Unspecified 4 Jazmin Nicole. [address] [place] [address], [place] [address], [place], [place], [address], [place]. tel:[phone] Referring Provider: Shabana Maurer, [address] [place] [address] [address], [place], [address] . tel:[phone] [facility], [address], [place], [place], [address] , [place] tel: [phone] [facility] Pulmonary EmbolusAnginaPulmon carlos Hypertension, SecondarySleep Apnea, ObstructiveRheumato id ArthritisDiastolic dysfunctionBenign hypertensive heart disease 4 Mary Ann Donald. [address] [place] [address], [facility] 107, [place], [place], [address]. tel:[phone] Referring Provider: Shabana Maurer, [address] [place] [address] [address], [place], [address] . tel:[phone] [facility], [address], [place], [place], [address] , tel: [phone] [facility] Shortness of BreathChest Pain, UnspecifiedChest Tightness 4 Raymond Seaman. [facility], [facility] 107, [place], [place], [address], [place]. tel:[phone] Referring Provider: Shabana Maurer, [address] [place] [address] [address], [place], [address] . tel:[phone] [facility], [address], [place], [place], [address] , [place] tel:[phone] [facility] Rheumatoid Arthritis 4 Adelaida Lewis. [address] [place] [address], [place], [place], [address], [place]. tel:[phone] [facility], [address], [place], [place], [address] , [place] tel: [phone] [facility] DiarrheaRecurrent pulmonary embolismPulmonary Hypertension, SecondarySleep Apnea, ObstructiveAnginaRh eumatoid ArthritisArterial embolism and thrombosis of unspecifed artery 4 Mary Ann Donald. [address] [place] [address], [place], [place], [address]. tel:[phone] Referring Provider: Shabana Maurer, [address] [place] [address], [place], [address] . tel:[phone] [facility], [address], [place], [place], [address] , [place] tel: [phone] [facility] Abnormal glucose 3 Ivon Toledo. [address] [place] [address], [place], [place], [address], [place]. tel:[phone] [facility], [address], [place], [place], [address] , [place] tel: [phone] [facility] No Information 3 Mary Ann Donald. [address] [place] [address], [place], [place], [address]. tel:[phone] [facility], [address], [place], [place], [address] , [place] tel: [phone] [facility] Thromboembolic disorderHypothyroid ism (acquired)residential current use of systemic steroidsRheumatoid arthritisAsthmaObst ructive sleep apneaPulmonary hypertension 3 Mary Ann Donald. [address], [address], [place], [place], [address]. tel:[phone] Referring Provider: Shabana Maurer, [address], [place], [address] . tel:[phone] Family History Family Member Type Diagnosis Age [...] Record Payers Payer name Insurance type Covered green party ID Authoriza tion(s) MEDICARE [id number] [employer] OPEN ACCESS I II III CI [id number] MEDICARE [id number] [employer] OPEN ACCESS I II III CI [id number] Social History Type Description Quantity Date Captured [...]
--- OUTSIDE RECORDS SUMMARY | 2024-05-10 08:24 | XMS_ITS | Encounter Summary ---
Author Organization [facility] Address [address] [facility] [address] Care Team Providers Care Rubber Goods Repairer Name Role Phone Chucky Menendez MD Unavailable [phone] Nathalie Guzman MD, Wade Lopes Unavailable [phone] Danielle Reina MD Unavailable [phone] Mercedes Collins MD Primary Care Provider Ramsey Barbosa MD Unavailable Mercedes Collins MD Unavailable [phone] Reason for Visit * Reason Onset Date Comments MEDICATION REFILL 05/09/2024 Encounter Details Date Type Department Care Team (Late st Contact Info) Description 05/09/2024 Refill [facility] Medical [facility] - Internal Medicine [address] [facility] [address] [place] [id number] Mercedes Collins MD [address] [place] [id number] MEDICATION REFILL Social History Tobacco Use Types Packs/Day Years [...] Description 06/07/2024 1:20 PM CDT Office Visit [facility] - Internal Medicine [address] [place] [phone] Mercedes Collins MD [address] [place] [phone] 12/01/2024 11:45 AM CDT Office Visit [facility] - HOME ECONOMICS EXTENSION WORKER [address] [place] [phone] Peterson Nance MD [address] [place] [address] documented as of this encounter Visit Diagnoses Diagnosis Rheumatoid arthritis involving multiple sites, unspecified whether rheumatoid factor present (HCC) documented in this encounter Care Teams Rubber Goods Repairer Relationship Specialty Start Date End Date Mercedes Collins MD [address] [place] [phone] PCP - General Internal Medicine 05/17/19 Mercedes Collins MD [address] [place] [address] [address] [place] [address] PCP - Attributed-Hyun [place] 02/16/23 Chucky Menendez MD [address] [place] [address] [address] [place] [address] Piece Maker Pulmonary Disease 09/20/15 Wade Zelaya Jr., MD [address] [place] [address] [address] [place] [address] Rheumatology 12/01/16 Danielle Reina MD [address] [place] [address] Orthopedic Surgery 12/01/16 Ramsey Barbosa MD [address] [address] Internal Medicine 10/29/22 documented as of this encounter
--- OUTSIDE RECORDS SUMMARY | 2024-05-10 08:24 | XMS_ITS | Referral Summary ---
Author Organization [facility] Address [address] [place] [address] Care Team Providers Care Power Plant Installer Name Role Phone Mercedes Collins MD Primary Care Provider + Andrzej Grimes OD Unavailable [phone] Ramsey Barbosa MD Unavailable Juana Leal RN Unavailable [phone] Encounters Date Type Department Care Team Description 04/20/2024 Orders Only [facility] [address] [place] [address] [address] [place] [address] Caryn Ruiz RN 04/19/2024 10:45 AM FORM SETTER SUPERVISOR Office Visit [facility] Ophthalmology [address] [facility] 6th Floor, [address] [facility] [place] [address] Jennifer Mar, OD Bilateral chronic anterior uveitis (Primary Dx); Age-related cataract of both eyes; Diabetes mellitus type 2 without retinopathy (HCC) 04/18/2024 10:38 AM FORM SETTER SUPERVISOR - 04/18/2024 11:59 PM FORM SETTER SUPERVISOR Hospital Encounter [facility] [address] [place] [phone] Chronic pain of right ankle Discharge Disposition: Discharge to home or self care 04/18/2024 10:37 AM FORM SETTER SUPERVISOR - 04/18/2024 11:59 PM FORM SETTER SUPERVISOR Hospital Encounter [facility] [address] [place] [phone] Right foot pain Discharge Disposition: Discharge to home or self care 04/18/2024 10:15 AM FORM SETTER SUPERVISOR - 04/18/2024 11:59 PM FORM SETTER SUPERVISOR Hospital Encounter [facility] [address] [place] [phone] Left ankle pain, unspecified chronicity Discharge Disposition: Discharge to home or self care 04/18/2024 10:20 AM FORM SETTER SUPERVISOR - 04/18/2024 11:59 PM FORM SETTER SUPERVISOR Hospital Encounter [facility] [address] [place] [phone] Left foot pain Discharge Disposition: Discharge to home or self care 04/18/2024 10:00 AM FORM SETTER SUPERVISOR Office Visit [facility] Orthopaedic Surgery [address] [place] [address] 2nd Floor [address] [place] [address] Joy Dang NP Osteoarthritis of left ankle and foot (Primary Dx); Left foot pain; Left ankle pain, unspecified chronicity; Follow-up exam; Right foot pain; Chronic pain of right ankle; Osteoarthritis of right ankle and foot; Pes planovalgus; Crossover toe deformity of right foot 04/14/2024 5:19 PM FORM SETTER SUPERVISOR - 04/14/2024 10:59 PM FORM SETTER SUPERVISOR Emergency [facility] Emergency Department [address] [place] [address] Garcia Louis MD PhD Abdominal pain (Primary Dx); Bloating Discharge Disposition: Discharge to home or self care 04/14/2024 1:30 PM FORM SETTER SUPERVISOR Infusion [facility] [address] [place] [phone] High risk medication use (Primary Dx); Rheumatoid arthritis involving multiple sites with positive rheumatoid factor (HCC) 04/13/2024 11:45 AM FORM SETTER SUPERVISOR Office Visit [facility] Pulmonary [address] [place] [address] Seble Mejia MD Abnormal CT of the chest (Primary Dx); Chronic obstructive pulmonary disease, unspecified COPD type (HCC) 04/12/2024 Telephone [facility] [address] [place] [phone] Gorge Cook RN 03/24/2024 Orders Only [facility] [address] [place] [phone] Pancho Thapa RN 03/17/2024 2:54 PM FORM SETTER SUPERVISOR - 03/17/2024 11:59 PM FORM SETTER SUPERVISOR Hospital Encounter [facility] Respiratory Therapy [address] [place] [phone] Abnormal PFT; Interstitial lung disease (HCC) Discharge Disposition: Discharge to home or self care 03/03/2024 9:30 AM FORM SETTER SUPERVISOR Infusion [facility] Infusion Therapy Formerly [facility] [facility] 5th [place] [address] [place] [phone] Rheumatoid arthritis involving multiple sites with positive rheumatoid factor (HCC) (Primary Dx) 02/22/2024 Telephone [facility] Rheumatology [address] [facility] Medical Office Building [address] [place] [address] Bonnie Neri, DYLON Prior Auth (Orencia (abatecept)) 02/19/2024 11:07 AM FORM SETTER SUPERVISOR - 02/19/2024 11:59 PM FORM SETTER SUPERVISOR Hospital Encounter [facility] [address] [place], [place] [phone] Rheumatoid arthritis involving multiple sites with positive rheumatoid factor (HCC) Discharge Disposition: Discharge to home or self care 02/19/2024 10:55 AM FORM SETTER SUPERVISOR Lab [facility] Endocrinology Metabolism and Lipid [address] [place] [address] 5th [place] [address] [place] [address] Rheumatoid arthritis involving multiple sites with positive rheumatoid factor (HCC) 02/19/2024 9:30 AM FORM SETTER SUPERVISOR Office Visit [facility] Rheumatology [facility]ly [facility] 5th [place] [address] [place] [address] Jeremi López MD PhD Rheumatoid [...] comments) Low 01/25/2016 Bone pain Bone pain Yyfbfuk-Aqm-Fpe Reductase Inhibitors Muscle pain,Unknown Medium 05/18/2014 Medications [...] HCV Assessment & Plan (04/19/2024 1:31 PM FORM SETTER SUPERVISOR): No active inflammation, call if experiencing flare Assessment & Plan (04/17/2023 10:29 AM FORM SETTER SUPERVISOR): Quiet both eyes (OU), RTC if experiencing flare Assessment & Plan (04/18/2022 12:13 PM FORM SETTER SUPERVISOR): No sign of inflammation or sequelae from uveitis PLAN observe Diabetes mellitus type 2 without retinopathy 04/2022 Assessment & Plan (04/19/2024 1:31 PM FORM SETTER SUPERVISOR): Pt ed. Stressed BG control (HbA1C<7) to reduce the risk for diabetic ocular complications. Lab Results Component Value Date HGBA1C 5.8 (H) 06/01/2015 Assessment & Plan (04/17/2023 10:29 AM FORM SETTER SUPERVISOR): No retinopathy both eyes (OU). Pt ed. Stressed BG control (HbA1C<7) to reduce the risk for diabetic ocular complications. Lab Results Component Value Date HGBA1C 5.8 (H) 06/01/2015 Osteopenia 02/22/2022 Esophageal reflux 12/10/2021 Age-related cataract of both eyes 04/15/2021 Assessment & Plan (04/19/2024 1:31 PM FORM SETTER SUPERVISOR): Not v/s, monitor Assessment & Plan (05/06/2023 9:14 AM CDT): Stable best-corrected visual acuity (BVA), monitor Release updated glasses Rx Assessment & Plan (04/15/2021 11:03 AM FORM SETTER SUPERVISOR): She is not bothered, observe Right rotator cuff tear arthropathy 11/24/2020 Controlled substance agreement signed 11/20/2020 Current chronic use of systemic steroids 021 Chronic diastolic heart failure 09/02/2020 Overview (05/30/2021): TTE 07/18/20 with normal LVEF, evidence of diastolic dysfunction, no valvular abnormalities [facility] 2013 without significant disease Negative HANAN November 2020 proBNP = 10 in August 2020 History of uveitis 09/02/2020 Assessment & Plan (04/15/2021 11:02 AM FORM SETTER SUPERVISOR): She has no active inflammation today. Follow [...] on file Legal Sex Female 7:32 PM FORM SETTER SUPERVISOR Gender Identity Not on file Sexual Orientation Not on file Last Filed Vital Signs Vital Sign Reading Time Taken Comments Blood Pressure 132/97 04/14/2024 8:04 PM FORM SETTER SUPERVISOR Pulse 80 04/14/2024 8:04 PM FORM SETTER SUPERVISOR Temperature 36.4 C (97.5 F) 04/14/2024 3:02 PM FORM SETTER SUPERVISOR Respiratory Rate 18 04/14/2024 8:04 PM FORM SETTER SUPERVISOR Oxygen Saturation 99% 04/14/2024 8:04 PM FORM SETTER SUPERVISOR Inhaled Oxygen Concentration - - Weight 106.6 kg (235 lb) 04/18/2024 10:20 AM FORM SETTER SUPERVISOR Height 176.5 cm (5' 9.5 ) 04/18/2024 10:20 AM CS T Body Mass Index 34.21 04/18/2024 10:20 AM FORM SETTER SUPERVISOR Plan of Treatment Not on file Procedures Procedure Name Priority Date/Time Associated Diagnosis Comments XR FOOT RIGHT 3 OR MORE VIEWS Schedule Routine, Read Routine (OP Routine) 04/18/2024 10:48 AM FORM SETTER SUPERVISOR Right foot pain XR FOOT LEFT 3 OR MORE VIEWS Schedule Routine, Read Routine (OP Routine) 04/18/2024 10:48 AM FORM SETTER SUPERVISOR Left foot pain XR ANKLE LEFT 3 OR MORE VIEWS Schedule Routine, Read Routine (OP Routine) 04/18/2024 10:48 AM FORM SETTER SUPERVISOR Left ankle pain, unspecified chronicity XR ANKLE RIGHT 3 OR MORE VIEWS Schedule Routine, Read Routine (OP Routine) 04/18/2024 10:48 AM FORM SETTER SUPERVISOR Chronic pain of right ankle URINALYSIS AND REFLEX TO MICROSCOPIC STAT 04/14/2024 5:50 PM FORM SETTER SUPERVISOR POCT GLUCOSE DEVICE Routine 04/14/2024 5 :39 PM FORM SETTER SUPERVISOR TROPONIN I HIGH-SENSITIVITY 2-HOUR Timed 04/14/2024 5:31 PM FORM SETTER SUPERVISOR ECG 12-LEAD STAT 04/14/2024 3:38 PM FORM SETTER SUPERVISOR EGFR STAT 04/14/2024 3:25 PM FORM SETTER SUPERVISOR DIFFERENTIAL AUTO STAT 04/14/2024 3:2 5 PM FORM SETTER SUPERVISOR TROPONIN I HIGH-SENSITIVITY SERIES (BASELINE, 2HR, 4HR, 6HR) STAT 04/14/2024 3:25 PM FORM SETTER SUPERVISOR LIPASE STAT 04/14/2024 3:25 PM FORM SETTER SUPERVISOR COMPREHENSIVE METABOLIC PANEL STAT 04/14/2024 3:25 PM FORM SETTER SUPERVISOR CBC WITH AUTO DIFFERENTIAL STAT 04/14/2024 3:25 PM FORM SETTER SUPERVISOR POCT GLUCOSE DEVICE Routine 04/14/2024 3 :16 PM FORM SETTER SUPERVISOR PULMONARY FUNCTION TEST (PFT) Routine 03/17/2024 3:55 PM FORM SETTER SUPERVISOR Abnormal PFT Interstitial lung disease (HCC) IMMUNOGLOBULIN PROFILE Routine 02/19/2024 11:07 AM FORM SETTER SUPERVISOR Rheumatoid arthritis involving multiple sites with positive rheumatoid factor (HCC) CRP (ACUTE PHASE) Routine 02/19/2024 11: 07 AM FORM SETTER SUPERVISOR Rheumatoid arthritis involving multiple sites with positive rheumatoid factor (HCC) COMPREHENSIVE METABOLIC PANEL Routine 02/19/2024 11:07 AM FORM SETTER SUPERVISOR Rheumatoid arthritis involving multiple sites with positive rheumatoid factor (HCC) CBC WITH AUTO DIFFERENTIAL Routine 02/19/2024 11:07 AM FORM SETTER SUPERVISOR Rheumatoid arthritis involving multiple sites with positive rheumatoid factor (HCC) HEPATITIS C ANTIBODY Routine Gen Lab 01/23/2017 1:16 PM FORM SETTER SUPERVISOR SCREENING MAMMOGRAM Routine 10/19/2012 1 2:46 PM CDT SERUM LIPID PANEL Routine 10/19/2012 12: 05 PM CDT from Last 3 Months or Most Recently Relevant to Health Maintenance Results * XR Foot Right 3+ View (04/18/2024 10:48 AM FORM SETTER SUPERVISOR) Anatomical Region Laterality Modality Lower Extremities, Foot Right Computed Radiography 04/18/2024 3:07 PM FORM SETTER SUPERVISOR Impressions 04/18/2024 6:19 PM FORM SETTER SUPERVISOR 1. 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 2. Mild right mid and hindfoot osteoarthritis. Dictated by: Matthew Chapin MD PHD The radiology attending physician has personally reviewed this study, and had reviewed and/or edited this written report and agrees with it. Electronically signed by: Kevin Hermosillo MD Narrative 04/18/2024 6:19 PM FORM SETTER SUPERVISOR EXAMINATION: 1. XR ANKLE LEFT 3+ VIEWS [...] Foot Left 3+ View (04/18/2024 10:48 AM FORM SETTER SUPERVISOR) Anatomical Region Laterality Modality Lower Extremities, Foot Left Computed Radiography 04/18/2024 3:07 PM FORM SETTER SUPERVISOR Impressions 04/18/2024 6:19 PM FORM SETTER SUPERVISOR 1. 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 2. Mild right mid and hindfoot osteoarthritis. Dictated by: Matthew Chapin MD PHD The radiology attending physician has personally reviewed this study, and had reviewed and/or edited this written report and agrees with it. Electronically signed by: Kevin Hermosillo MD Narrative 04/18/2024 6:19 PM FORM SETTER SUPERVISOR EXAMINATION: 1. XR ANKLE LEFT 3+ VIEWS [...] Ankle Left 3+ View (04/18/2024 10:48 AM FORM SETTER SUPERVISOR) Anatomical Region Laterality Modality Lower Extremities, Ankle Left Compute d Radiography 04/18/2024 3:07 PM FORM SETTER SUPERVISOR Impressions 04/18/2024 6:19 PM FORM SETTER SUPERVISOR 1. 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 2. Mild right mid and hindfoot osteoarthritis. Dictated by: Matthew Chapin MD PHD The radiology attending physician has personally reviewed this study, and had reviewed and/or edited this written report and agrees with it. Electronically signed by: Kevin Hermosillo MD Narrative 04/18/2024 6:19 PM FORM SETTER SUPERVISOR EXAMINATION: 1. XR ANKLE LEFT 3+ VIEWS [...] it. Electronically signed by: Kevin Hermosillo MD [facility] RETREAD MOLD OPERATOR IM XR PROCEDURES Final Result * XR Ankle Right 3+ View (04/18/2024 10:48 AM FORM SETTER SUPERVISOR) Anatomical Region Laterality Modality Lower Extremities, Ankle Right Compute d Radiography 04/18/2024 3:07 PM FORM SETTER SUPERVISOR Impressions 04/18/2024 6:19 PM FORM SETTER SUPERVISOR 1. 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 2. Mild right mid and hindfoot osteoarthritis. Dictated by: Matthew Chapin MD PHD The radiology attending physician has personally reviewed this study, and had reviewed and/or edited this written report and agrees with it. Electronically signed by: Kevin Hermosillo MD Narrative 04/18/2024 6:19 PM FORM SETTER SUPERVISOR EXAMINATION: 1. XR ANKLE LEFT 3+ VIEWS [...] Urinalysis reflex to microscopic (04/14/2024 5:50 PM FORM SETTER SUPERVISOR) Color, ur Straw Yellow Clarity, ur Clear Clear [facility] Specific gravity, ur 1.006 1.003 - 1.030 [facility] pH, urine 7.0 [facility] Comment: Interpretive Data U rine pH is affected by diet, medications, systemic acid-base disturbances, and renal tubular function. pH may affect urinary stone formation. For example, urine pH below 6.0 may help reduce the tendency for calcium phosphate stones and pH greater than 6.0 may reduce the tendency for uric acid stone formation. Source: [facility] Current Interpretive Data was last revised on 2017 Protein, ur ql Negative Negative [facility] Glucose, ur ql Negative Negative [facility] Ketones, ur Negative Negative [facility] Bilirubin, ur Negative Negative [facility] Blood, ur Negative Negative [facility] Urobilinogen, ur <2.0 <2.0 mg/dL [facility] Nitrite, ur Negative Negative [facility] Leukocyte esterase, ur Negative Negative [facility] UA reflex comment Reflex conditions for microscopic UA not met. [facility] Urine 04/14/2024 5:50 PM FORM SETTER SUPERVISOR 04/14/2024 5:58 PM FORM SETTER SUPERVISOR us Garcia Louis MD PhD LAB URINE ORDERABLE S Final Result [facility] [place] [address] * POCT glucose (04/14/2024 5:39 PM FORM SETTER SUPERVISOR) Glucose, POC 123 70 - 199 mg/dL Blood 04/14/2024 5:39 PM FORM SETTER SUPERVISOR 04/14/2024 5:39 PM FORM SETTER SUPERVISOR us Notinfile Unknown LAB POCT ORDERABLES - DEVICE F inal Result Performing Organization Address City/[facility]/ZIP Co de Phone Number [facility] Department [place] [address] * Troponin I high-sensitivity 2-hour (04/14/2024 5:31 PM FORM SETTER SUPERVISOR) Trop I hs <4 <=17 ng/L Comment: Interpretive Data For further hscTnI resources including the diagnostic algorithm and an aid in interpretation, copy and paste this link: https://bjhlab.testcatalog.org/show/hsTrop-1 Current Interpretive Data last revised 2019. Trop I hs delta 0 ng/L [facility] Trop I hs interp Insignificant [facility] Blood 04/14/2024 5:31 PM FORM SETTER SUPERVISOR 04/14/2024 5:36 PM FORM SETTER SUPERVISOR us Angel Davison MD LAB BLOOD ORDERABLES F inal Result Performing Organization Address [facility] Co de Phone Number [facility] Department [place] [address] * ECG 12-LEAD (04/14/2024 3:38 PM FORM SETTER SUPERVISOR) Narrative [facility] - 04/14/2024 3:38 PM FORM SETTER SUPERVISOR Gabriel Gunn MD 04/14/2024 3:39 PM ECG [...] ORDERABLES Fin al Result Performing Organization Address [facility]/ZIP Co de Phone Number [facility] * Troponin I high-sensitivity series (baseline, 2hr, 4hr, 6hr) (04/14/2024 3:25 PM FORM SETTER SUPERVISOR) Trop I hs <4 <=17 ng/L Comment: Interpretive Data For further hscTnI resources including the diagnostic algorithm and an aid in interpretation, copy and paste this link: https://bjhlab.testcatalog.org/show/hsTrop-1 Current Interpretive Data last revised 2019. Blood 04/14/2024 3:25 PM FORM SETTER SUPERVISOR 04/14/2024 3:50 PM FORM SETTER SUPERVISOR Garcia Louis MD PhD LAB BLOOD ORDERABLE S Final Result Performing Organization Address City/[facility]/ZIP Co de Phone Number [facility] [place] [address] * eGFR (04/14/2024 3:25 PM FORM SETTER SUPERVISOR) eGFR 89 >=60 mL/min/1. 73 m2 Comment: [...] last reviewed 2020. Blood 04/14/2024 3:25 PM FORM SETTER SUPERVISOR 04/14/2024 3:50 PM FORM SETTER SUPERVISOR us Garcia Louis MD PhD LAB BLOOD ORDERABLE S Final Result [facility] [place] [address] * Differential, auto (04/14/2024 3:25 PM FORM SETTER SUPERVISOR) Neutrophil abs 6.3 1.5 - 6.5 K/cumm Imm gran abs 0.1 0.0 - 0.1 K/cumm [facility] Lymphocyte abs 2.2 0.8 - 3.3 K/cumm [facility] Monocyte abs 0.5 0.2 - 0.8 K/cumm [facility] Eosinophil abs 0.1 0.0 - 0.5 K/cumm [facility] Basophil abs 0.0 0.0 - 0.1 K/cumm [facility] Neutrophil pct 68.8 % [facility] Comment: Interpretive Data Percent cell count reference ranges are not reported, since discordance with absolute values may lead to misinterpretation of CBC data. Current Interpretive Data was last revised on 2017. Imm gran pct 0.7 % [facility] Comment: Interpretive Data Percent cell count reference ranges are not reported, since discordance with absolute values may lead to misinterpretation of CBC data. Current Interpretive Data was last revised on 2017. Lymphocyte pct 23.7 % [facility] Comment: Interpretive Data Percent cell count reference ranges are not reported, since discordance with absolute values may lead to misinterpretation of CBC data. Current Interpretive Data was last revised on 2017. Monocyte pct 5.3 % [facility] Comment: Interpretive Data Percent cell count reference ranges are not reported, since discordance with absolute values may lead to misinterpretation of CBC data. Current Interpretive Data was last revised on 2017. Eosinophil pct 1.1 % [facility] Comment: Interpretive Data Percent cell count reference ranges are not reported, since discordance with absolute values may lead to misinterpretation of CBC data. Current Interpretive Data was last revised on 2017. Basophil pct 0.4 % [facility] Comment: Interpretive Data Percent cell count reference ranges are not reported, since discordance with absolute values may lead to misinterpretation of CBC data. Current Interpretive Data was last revised on 2017. Blood 04/14/2024 3:25 PM FORM SETTER SUPERVISOR 04/14/2024 3:50 PM FORM SETTER SUPERVISOR us Garcia Louis MD PhD LAB BLOOD ORDERABLE S Final Result [facility] Department [place] [address] * CBC with auto differential (04/14/2024 3:25 PM FORM SETTER SUPERVISOR) [facility] WBC 9.1 3.8 - 9.9 K/cumm Hgb 12.9 11.9 - 15.5 g/dL [facility] Hct 39.0 35.6 - 45.5 % [facility] Plt 313 150 - 400 K/cumm [facility] MPV 9.5 9.1 - 12.3 fL [facility] RBC 4.55 3.90 - 5.20 M/cumm [facility] MCV 85.7 81.3 - 96.4 fL [facility] MCH 28.4 27.1 - 33.3 pg [facility] MCHC 33.1 32.3 - 35.7 g/dL [facility] RDW CV 12.6 11.1 - 14.9 % [facility] RDW SD 39.2 35.7 - 48.1 fL [facility] NRBC abs 0.00 0.00 - 0.01 K/cumm [facility] Blood Venous blood specimen / Unknown 04/14/2024 3:25 PM FORM SETTER SUPERVISOR 04/14/2024 3:50 PM FORM SETTER SUPERVISOR us Garcia Louis MD PhD LAB BLOOD ORDERABLE S Final Result Performing Organization Address City/[facility]/ZIP Co de Phone Number [facility] [place] [address] * Lipase (04/14/2024 3:25 PM FORM SETTER SUPERVISOR) [facility] Lipase 22 10 - 99 Units/L Blood Venous blood specimen / Unknown 04/14/2024 3:25 PM FORM SETTER SUPERVISOR 04/14/2024 3:50 PM FORM SETTER SUPERVISOR Garcia Louis MD PhD LAB BLOOD ORDERABLE S Final Result [facility] [place] [address] * Comprehensive metabolic panel (04/14/2024 3:25 PM FORM SETTER SUPERVISOR) [facility] Sodium 137 135 - 145 mmol/L Potassium, pl 3.9 3.3 - 4.9 mmol/L [facility] Chloride 100 97 - 110 mmol/L [facility] CO2 25 22 - 32 mmol/L [facility] Anion gap 12 2 - 15 mmol/L [facility] BUN 10 6 - 25 mg/dL [facility] Creatinine 0.76 0.60 - 1.10 mg/dL [facility] Glucose 181 70 - 199 mg/dL [facility] Comment: Interpretive Data Fasting glucose >/= 126 [...] 2022. Calcium 9.2 8.5 - 10.3 mg/dL [facility] Bilirubin, total 0.6 0.1 - 1.2 mg/dL [facility] Protein, pl 7.5 6.5 - 8.5 g/dL [facility] Albumin 3.8 3.5 - 5.0 g/dL [facility] Alk phos 74 40 - 130 Units/L [facility] ALT 34 7 - 45 Units/L [facility] AST 28 10 - 45 Units/L [facility] Blood 04/14/2024 3:25 PM FORM SETTER SUPERVISOR 04/14/2024 3:50 PM FORM SETTER SUPERVISOR us Garcia Louis MD PhD LAB BLOOD ORDERABLE S Final Result [facility] Department [place] [address] * POCT glucose (04/14/2024 3:16 PM FORM SETTER SUPERVISOR) Glucose, POC 176 70 - 199 mg/dL Blood 04/14/2024 3:16 PM FORM SETTER SUPERVISOR 04/14/2024 3:16 PM FORM SETTER SUPERVISOR us Notinfile Unknown LAB POCT ORDERABLES - DEVICE F inal Result [facility] Department [place] [address] * (ABNORMAL) Pulmonary Function Test - (03/17/2024 3:55 PM FORM SETTER SUPERVISOR) [facility] FVC PRE 2.88 2.29 - 4.02 L [facility] FEV1 PRE 2.54 1.77 - 3.11 L [facility] [id number] 88.21 66.97 - 89.03 % [facility] [id number]% PRE 3.67 0.89 - 3.92 L/s [facility] [facility] PEF PRE 6.81 5.19 - 8.15 L/s [facility] DLCOc SB 18.54(A) 19.82 - 31.29 ml/(min*mm Hg) [facility] DLCO/VA PRE 4.85 3.17 - 5.67 ml/(min*mm Hg*L) [facility] VA 3.82(A) 5.63 - 5.63 L [facility] TLC PRE 4.38(A) 4.79 - 6.76 L [facility] VC PRE 2.88 2.71 - 4.09 L [facility] IC PRE 2.45(A) 2.58 - 2.58 L [facility] FRC PL PRE 1.94(A) 2.17 - 3.81 L [facility] ERV PRE 0.43(A) 0.82 - 0.82 L [facility] RV PRE 1.50(A) 1.59 - 2.74 L [facility] VTG 2.07 L [facility] RAW PRE 3.05(A) 3.06 - 3.06 cmH2O*s/L [facility] Anatomical Region Laterality Modality PFT 03/17/2024 3:06 PM FORM SETTER SUPERVISOR Impressions 03/20/2024 8:37 PM FORM SETTER SUPERVISOR 1. Qddy-lh-qgexuigo restrictive ventilatory limitation 2. Mild diffusion impairment 3. Ambulatory oximetry was performed and at this level of activity the patient did not require supplemental oxygen Electronically signed by Tristian Carrillo MD Pulmonary & Critical Care Narrative 03/20/2024 8:37 PM FORM SETTER SUPERVISOR PULMONARY FUNCTION TESTS Joselin Canada 63 y.o. [...] * (ABNORMAL) Immunoglobulin profile (02/19/2024 11:07 AM FORM SETTER SUPERVISOR) [facility] Immunoglobulin G 1,598 700 - 1,600 mg/dL Immunoglobulin A 313 70 - 400 mg/dL [facility] Immunoglobulin M 245(H) 40 - 230 mg/dL [facility] Blood 02/19/2024 11:0 7 AM FORM SETTER SUPERVISOR 02/19/2024 1:09 PM FORM SETTER SUPERVISOR Jeremi López MD PhD LAB BLOOD ORDERABLE S Final Result [facility] Department [place] [address] * CBC with auto differential (02/19/2024 11:07 AM FORM SETTER SUPERVISOR) [facility] White Blood Count 7.8 3.6 - 11.2 [...] - [facility] Blood 02/19/2024 11:0 7 AM FORM SETTER SUPERVISOR 02/19/2024 12:25 PM FORM SETTER SUPERVISOR us Intelly Clive López MD PhD LAB BLOOD ORDERABLE S Final Result [facility] * (ABNORMAL) CRP (acute phase) (02/19/2024 11:07 AM FORM SETTER SUPERVISOR) C-Reactive Protein, Acute 5.8(H) <5.0 mg/L [facility] Blood 02/19/2024 11:0 7 AM FORM SETTER SUPERVISOR 02/19/2024 12:25 PM FORM SETTER SUPERVISOR Jeremi López MD PhD LAB BLOOD ORDERABLE S Final Result [facility] * (ABNORMAL) Comprehensive metabolic panel (02/19/2024 11:07 AM FORM SETTER SUPERVISOR) Total Protein 7.7 6.1 - 8.4 g/dL [...] - [facility] Blood 02/19/2024 11:0 7 AM FORM SETTER SUPERVISOR 02/19/2024 12:25 PM FORM SETTER SUPERVISOR Jeremi López MD PhD LAB BLOOD ORDERABLE S Final Result [facility] * Hepatitis C antibody (01/23/2017 1:16 PM FORM SETTER SUPERVISOR) Hep C Ab Nonreactive Nonreactive [facility] Comment: Interpretive Data Positive and greyzone results should be confirmed by a molecular method. If positive or greyzone, a second separately collected sample should be submitted for Hepatitis C Virus RNA. Detection and Quantitation by Real-Time Reverse Manager Transportation-PCR.Current Interpretive data was last revised on 2016. Blood specimen (specimen) 01/23/2017 1:16 PM FORM SETTER SUPERVISOR 01/23/2017 4:49 PM FORM SETTER SUPERVISOR Narrative [facility] - 01/24/2017 9:19 AM FORM SETTER SUPERVISOR us Rocio Ellis MD LAB MICROBIOLOGY - GENERAL OR DERABLES Edited Result - Final [facility] Department [place] [address] * Screening Mammogram (10/19/2012 12:46 PM CDT) Anatomical Region Laterality Modality Breast N/A Mammography 10/19/2012 12:4 6 PM CDT Narrative 10/20/2012 1:30 PM CDT ANGELICA BYNUM M.D. FINAL REPORT ACC# Date Time Exam [id number] Oct 19, 2012 12:46:00 [facility] [id number] Screening Mamm Bilat Technologist(s): Dilia Gregg; ; EXAMINATION: Mammogram Findings: A Full-Field Digital Screening Mammogram was performed. Views obtained: bilateral craniocaudal; bilateral mediolateral oblique. Computer Aided Detection was performed with Kalion.3 version 9.3. The present examination has been compared to prior imaging studies performed at [facility] on 10/06/2011, 03/05/2010 and 06/23/2008. [...] M.D. FINAL REPORT ACC# Date Time Exam [id number] Oct 19, 2012 12:46:00 [facility] [id number] Screening Mamm Bilat Technologist(s): Dilia Gregg; ; EXAMINATION: Mammogram Findings: A Full-Field Digital Screening Mammogram was performed. Views obtained: bilateral craniocaudal; bilateral mediolateral oblique. Computer Aided Detection was performed with Kalion.3 version 9.3. The present examination has been compared to prior imaging studies performed at [facility] on 10/06/2011, 03/05/2010 and 06/23/2008. [...] Most Recently Relevant to Health [place] [address] T [place] [address] MEDICARE [employer] OPEN ACCESS [facility] [address] [place] [address] [facility] MEDICARE [employer] [place] [address] Care Teams Power Plant Installer Relationship Specialty Start Date End Date Mercedes Collins MD [address] [place] [address] PCP - General 06/25/17 Andrzej Grimes, OD [address] [place] [address] Referring Physician Ophthalmology 04/18/20 Ramsey Barbosa MD [address] [place] [address] Healthcare Prof Transplant 05/30/21 Juana Leal, RN [address] [address] Heart Failure Coordinator Defective Cigarette Slitter 05/30/21
== END 2024-05-10 08:06 | disposition home or self-care (01) ==
DX: K86.2 Cyst of pancreas (principal); K76.0 Fatty (change of) liver, not elsewhere classified
CPT/HCPCS: 74183; A9577

== ENCOUNTER 2024-09-05 16:09 | Inpatient (IN) | payer MEDICARE, OTHER, SELFPAY ==
[2024-09-05] VITALS (8 sets, daily range): BP systolic 151–171; BP diastolic 89–90; PULSE 82–98; RESP 16–20; TEMP 36.8; O2SAT 95–100
--- NOTE | ~2024-09-05 | XR_ITS ---
CHEST RADIOGRAPH, PA AND LATERAL CLINICAL HISTORY: cp RADIATES TO LEFT ARM . COMPARISON: 11/06/2019 TECHNIQUE: PA and lateral views of the chest. FINDINGS The cardiomediastinal silhouette is unremarkable. The lungs are clear. IMPRESSION: No focal infiltrate or effusion. Reviewed, dictated and finalized at location A.
--- OUTSIDE RECORDS SUMMARY | 2024-09-05 16:12 | XMS_ITS | Encounter Summary ---
Author Organization [facility] Address [address] [place] [address] Care Team Providers Care Electrical And Instrumentation Manager Name Role Phone José Ashton MD Primary Care Provider [phone] Marcos Banks MD Unavailable [phone] Krish Woodard MD Unavailable Unavailable Chucky Menenedz MD Unavailable [phone] Agata Castro MD Primary Care Provider [phone] Agata Castro MD Unavailable [phone] Mercedes Collins MD Primary Care Provider [phone] Nathalie Guzman MD, Richard D Unavailable [phone] Danielle Reina MD Unavailable + [phone] Mercedes Collins MD Unavailable [phone] Mercedes Collins MD Primary Care Provider [phone] Carlota Hyman CLEANING HANDYMAN-MILKING SYSTEM INSTALLER Unavailable [phone] Mercedes Collins MD Unavailable [phone] Carlota Hyman CLEANING HANDYMAN-MILKING SYSTEM INSTALLER Unavailable [phone] Mercedes Collins MD Unavailable [phone] Ladan Acosta RN Unavailable Ramsey Barbosa MD Unavailable Mercedes Collins MD Unavailable [phone] Stacey Michelle Unavailable Krish Woodard MD Unavailable Unavailable Encounter Details Date Type Department Care Team (Late Contact Info) Description 02/04/2013 [facility] Outpatient Visit EXTERNAL NON-[facility] DEPT Marcos Banks MD [address] [facility] [address] [place] [address] Social History Tobacco Use Types Packs/Day Years Used Date Smoking Tobacco: Former Smokeless Tobacco: Former Comments:quit 22 yr's ago Alcohol Use Standard Drinks/Week Comments No 0 (1 standard drink = 0.6 oz pur e alcohol) Comments No Sex and Gender Information Value Date Recorded Sex Assigned at Not on file Legal Sex Female 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 Gender Identity Not on file Sexual Orientation Not on file documented as of this encounter Plan of Treatment Upcoming Encounters Date Type Department Care Team (Late st Contact Info) Description 2024 8:15 AM CDT Appointment Wound Care at [facility] [address] [place] [address] Todd Wheeler MD [address] [place] [phone] 10/06/2024 11:40 AM CDT Office Visit [facility] - Internal Medicine [address] [facility] [address] [place] [phone] Mercedes Collins MD [address] [place] [address] [address] [place] [address] 12/01/2024 11:45 AM CDT Office Visit [facility] - 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 [address] [place] [address] [address] [place] [address] Peterson Nance MD [address] [facility] [address] [place] [address] documented as of this encounter Visit Diagnoses Not on filedocumented in this encounter Additional Health Concerns Infection Onset Date Last Indicated Resolved Time COVID-19 Under Investigation 06/18/2020 06/18/2020 06/19/2020 6:11 AM CDT COVID-19 Confirmed 06/18/2020 06/18/2020 4:33 AM CDT COVID-19 Under Investigation 07/15/2020 07/15/2020 07/15/2020 6:50 AM CDT COVID-19 Under Investigation 01/21/2023 01/21/2023 01/21/2023 6:24 PM WELFARE DIRECTOR documented as of this encounter Care Teams Electrical And Instrumentation Manager Relationship Specialty Start Date End Date José Ashton MD [address] [place] [phone] PCP - General 09/11/10 03/27/13 Agata Castro MD [address] [place] [address] PCP - General Family Medicine 09/17/16 11/30/16 Mercedes Collins MD [address] [place] [phone] PCP - General Internal Medicine 12/01/16 05/16/19 Mercedes Collins MD [address] [place] [phone] PCP - Attributed-MSSP 07/17/18 09/15/20 Mercedes Collins MD [address] [place] [phone] PCP - General Internal Medicine 05/17/19 Carlota Hyman, CLEANING HANDYMAN-MILKING SYSTEM INSTALLER [address] [place] [address] PCP - Attributed-MSSP 09/16/20 10/16/20 Mercedes Collins MD [address] [place] [address] PCP - Attributed-MSSP 10/17/20 04/15/21 Carlota Hyman, CLEANING HANDYMAN-MILKING SYSTEM INSTALLER [address] [place] [phone] PCP - Attributed-MSSP 04/16/21 06/15/21 Mercedes Collins MD [address] [place] [phone] PCP - Attributed-MSSP 06/16/21 08/11/23 Mercedes Collins MD [address] [place] [address] PCP - Attributed-Coventry MA 02/16/23 Krish Woodard MD PCP - Attributed-MSSP 04/16/18 07/16/18 Marcos Banks MD [address] [place] [address] Cardiology 09/29/13 10/28/22 Krish Woodard MD [address] [place] [address] Pulmonary Disease 09/29/13 09/19/15 Chucky Menendez MD [address] [facility] [address] [place] [address] Percussion Instrument Repairer Pulmonary Disease 09/20/15 Agata Castro MD [address] [place] [address] [address] [place] [address] Referring Physician Family Medicine 09/17/16 11/09/18 Wade Zelaya Jr., MD [address] [place] [address] [address] [place] [phone] Rheumatology 12/01/16 Danielle Reina MD [address] [phone] Orthopedic Surgery 12/01/16 Ladan Acosta, RN Mortgage SpecialistConstruction Project Coordinator 07/23/22 08/14/22 Ramsey Barbosa MD [address] [address] Internal Medicine 10/29/22 Stacey Michelle [address] [place] [address] Care Coordination Specialist Care Management 09/29/23 11/13/23 documented as of this encounter
--- OUTSIDE RECORDS SUMMARY | 2024-09-05 16:12 | XMS_ITS | Clinical Summary ---
Author Organization [facility] TradeCard Address [address] [place] [place] [address] Care Team Providers Care Mold Tooling Technician Name Role Phone Chucky Menendez MD Unavailable [phone] Nathalie Guzman MD, Wade Lopes Unavailable [phone] Danielle Reina MD Unavailable [phone] Mercedes Collins MD Primary Care Provider [phone] Ramsey Barbosa MD Unavailable [phone] Mercedes Collins MD Unavailable [phone] Source Comments [facility],non-owned Affiliates and Associated Physician Practices is amultiple site organization consisting of ambulatory clinics and hospital sitesin [place], [place], [place] and [place]. This disclosure is being madepursuant to the Care Everywhere program and may not contain all information available regarding this patient. Last updated 17.[facility] Allergies Active Allergy Reactions Criticality Noted Date Comments Ciprofloxacin Hydrochloride Urticaria,Diarrhea 09/10/2009 Ciprofloxacin Rash,Urticaria,Unkno wn High 12/23/2012 Hmg-Coa-R Inhibitors Myalgias,Unknown Medium 5 Leflunomide GI Discomfort High 12/11/2015 Levofloxacin Unknown High 06/24/2010 Ruptured Ligaments Lisinopril Other Low 04/14/2024 Unsure of reaction, states was taken off for either diarrhea or swelling Simvastatin Other,Unknown Low 01/25/2016 Bone pain Bone pain Bone pain Medications * Be aware that medications may not be up to date on this document. Alwaysverify current medications with the patient. calcium-vitamin D (OS-SHANNON 250 PLUS D 125 [...] eyes as needed 01/15/20 18 Active albuterol (PROVENTIL;VENTOL IN) (2.5 MG/3ML) 0.083% nebulizer solution Inhale 2.5 (two and one-half) mg by mouth every 6 hours as needed for Shortness of Breath or Wheezing 120 vial 5 06/30/19 21 Active spironolactone (ALDACTONE) 25 MG tablet 0.5 (one-half) tablet 10/30/19 21 Active verapamil CR (ISOPTIN-SR) 180 MG tablet Take 2 (two) tablets by mouth once daily 08/15/19 22 Active ammonium lactate (Lac-Hydrin) 12 % creamIndications: Xerosis Cutis Apply to the feet and toenails at least once a day. Do not apply between the toes. Reasons: Abnormal Dryness of Skin 385 g 5 12/11/19 22 Active inFLIXimab (Remicade) injection 1,100 (one thousand one hundred) mg by Intravenous route Active Multiple Vitamins-Minerals (Super Thera Maria Luz M) TABS Take 1 (one) tablet by mouth once daily Active albuterol (Proventil;Ventol in) (2.5 MG/3ML) 0.083% nebulizer solution Inhale 2.5 [...] DAY 270 tablet 1 01/17/20 23 Active albuterol HFA (Proventil; Ventolin; Proair) 108 (90 Base) MCG/ACT inhaler INHALE 2 PUFFS BY MOUTH EVERY 4 HOURS NEEDED 54 g 3 02/17/19 24 Active ketoconazole (Nizoral) 2 % creamIndications: Eczema,Tinea Pedis Apply to the feet and toes twice a day as needed. Do not apply between the toes. Reasons: Athlete's Foot, Eczema 60 g 2 03/04/19 24 Active diclofenac sodium (Voltaren) 1 % gelIndications:Os teoarthritis Apply 4 (four) g to affected area 4 times daily Apply to foot as needed for pain Reasons: Joint Damage causing Pain and Loss of Function 100 g 5 03/04/19 24 Active umeclidinium-juan nterol (Anoro Ellipta) 62.5-25 MCG/ACT inhaler Inhale 1 (one) puff by mouth once daily 30 Each 11 05/18/19 24 Active Blood Glucose Monitoring Suppl ([employer] Verio) w/Device KITIndications:Ty pe 2 diabetes mellitus with diabetic neuropathy, without long-term current use of insulin (HCC) Use 1 Each as directed 1 kit 05/21/19 24 Active ipratropium (Atrovent) 0.03 % nasal sprayIndications: Nasal congestion SPRAY 1-2 SPRAYS INTO EACH NOSTRIL 3 TIMES DAILY 30 mL 06/04/19 24 Active fluticasone propionate (Flonase) 50 MCG/ACT nasal spray [place] 1 (one) spray into each nostril 2 times daily 16 g 11 10/07/19 24 Active vibegron (Gemtesa) 75 MG tablet Take 1 (one) tablet by mouth once daily 90 tablet 3 11/26/19 24 Active nystatin (Mycostatin) 593342 UNIT/GM ointment Apply to vulva twice daily 30 g 3 11/26/19 24 Active predniSONE (Deltasone) 5 MG tabletIndications :Rheumatoid arthritis involving multiple sites with positive rheumatoid factor (HCC) TAKE 1 TABLET BY MOUTH EVERY DAY 90 tablet 1 02/02/20 24 Active nitroGLYCERIN (Nitrostat) 0.4 MG tablet DISSOLVE 1 (ONE) TABLET UNDER THE TONGUE EVERY 5 MINUTES NEEDED FOR ANGINA 25 tablet 02/16/20 24 Active famotidine (Pepcid) 20 MG tablet Take 1 (one) tablet by mouth at bedtime 90 tablet 1 05/14/19 25 Active Additional Information Patient not taking.Reported on 09/01/2024 blood glucose (OneTouch Verio) test stripIndications: Type 2 diabetes mellitus with diabetic neuropathy, without long-term current use of insulin ([facility]) USE 1 STRIP DIRECTED 50 strip 05/25/19 25 Active Lancets (ONETOUCH DELICA PLUS 33G EXTRA FINE LANCET)Indication s:Type 2 diabetes mellitus with diabetic neuropathy, without long-term current use of insulin ([facility]) USE 1 EACH ONCE DAILY 100 Each 5 07/29/19 25 Active HYDROcodone-aceta minophen (Beverly) 5-325 MG tabletIndications :Rheumatoid arthritis involving multiple sites, unspecified whether rheumatoid factor present (HCC) Take 1 (one) tablet to 2 (two) tablets by mouth 2 times daily 90 tablet 08/06/19 25 Active semaglutide (Rybelsus) 3 MG tabletIndications :Type 2 Diabetes Mellitus Take 1 (one) tablet by mouth once daily Take with a sip of water (< 4 oz) at least 30 minutes before any food, drink, or other meds. Reasons: Type 2 Diabetes 30 tablet 5 09/02/19 25 Active metFORMIN (Glucophage) 500 MG tabletIndications :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HCC) Take 2 (two) tablets by mouth every morning AND 1 (one) tablet daily with dinner. 270 tablet 1 09/02/19 25 Active rivaroxaban (Xarelto) 20 MG tabletIndications :Recurrent pulmonary embolism (HCC) Take 1 (one) tablet by mouth daily with dinner 90 tablet 1 09/02/19 25 Active rosuvastatin (Crestor) 10 MG tabletIndications :Mixed hyperlipidemia TAKE 1 TABLET BY MOUTH ONE TIME PER WEEK 12 tablet 1 09/02/19 25 Active furosemide (Lasix) 20 MG tabletIndications :Chronic diastolic heart failure (HCC) Take 2 (two) tablets by mouth once daily 180 tablet 1 09/02/19 25 Active levothyroxine (Synthroid) 88 MCG tabletIndications :Postablative hypothyroidism Take 1 (one) tablet by mouth once daily 90 tablet 1 09/02/19 25 Active gabapentin (Neurontin) 300 MG capsuleIndication s:Neuropathic Pain Take 1 (one) capsule by mouth 3 times daily Reasons: Neuropathic Pain 90 capsule 09/02/19 25 Active doxycycline hyclate 100 MG tabletIndications :Cellulitis, unspecified cellulitis site Take 1 (one) tablet by mouth 2 times daily for 7 days 14 tablet 09/02/19 25 025 Active gabapentin (NEURONTIN) 300 MG capsule Take 1 (one) capsule by mouth nightly as needed (pain) 30 capsule 02/02/20 21 025 Disconti nued(Reo rder) levothyroxine (Synthroid) 88 MCG tabletIndications :Postablative hypothyroidism Take 1 (one) tablet by mouth once daily 90 tablet 1 03/16/19 25 025 Disconti nued(Reo rder) furosemide (Lasix) 20 MG tabletIndications :Chronic diastolic heart failure (HCC) TAKE 2 TABLETS BY MOUTH EVERY DAY 180 tablet 1 04/27/19 25 025 Disconti nued(Reo rder) rosuvastatin (Crestor) 10 MG tabletIndications :Mixed hyperlipidemia TAKE 1 TABLET BY MOUTH ONE TIME PER WEEK 12 tablet 1 06/08/19 25 025 Disconti nued(Reo rder) metFORMIN (Glucophage) 500 MG tabletIndications :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HCC) Take 2 (two) tablets by mouth every morning AND 1 (one) tablet daily with dinner. 270 tablet 1 06/08/19 25 025 Disconti nued(Reo rder) rivaroxaban (Xarelto) 20 MG tabletIndications :Recurrent pulmonary embolism (HCC) Take 1 (one) tablet by mouth daily with dinner 90 tablet 1 06/08/19 25 025 Disconti nued(Reo rder) semaglutide (Rybelsus) 3 MG tabletIndications :Type 2 Diabetes Mellitus Take 1 (one) tablet by mouth once daily Take with a sip of water (< 4 oz) at least 30 minutes before any food, drink, or other meds. Reasons: Type 2 Diabetes 30 tablet 5 07/07/19 25 025 Discpamelai tameka(Reo rder) Active Problems Problem Noted Date Diagnosed Date Long-term use of infliximab 10/25/2023 Abnormal PFT 08/25/2023 Phlebolith 03/31/2023 Overview (03/31/2023): Left distal medial tib/fibula Type 2 diabetes mellitus wit h neurologic complication, without long-term current use of insulin 01/01/2023 Bilateral chronic anterior uveitis 04/18/2022 Overview (06/07/2024): Bilateral recurrent anterior uveitis Responds to topical steroids, with no sequelae of ocular inflammation currently Underlying RA sine 1996, on maximum dose Remicade with worsening joint swelling and increased episodes AU Labs Neg/nml TSPOT, HIV, HBV, HCV Osteopenia 02/22/2022 06/27/2022 Esophageal reflux 12/10/2021 Age-related [...] Problem Noted Date Diagnosed Date Resolved Date Diabetes mellitus type 2 without retinopathy 3 06/07/2024 Overview (10/13/2023): Last Assessment & Plan: No retinopathy both eyes (OU). Pt ed. Stressed BG control (HbA1C<7) to reduce the risk for diabetic ocular complications. Lab Results Component Value Date HGBA1C 5.8 (H) 06/01/2015 Diabetic neuropathy 04/25/2021 01/02/20 23 Controlled substance [...] Encounters Date Type Department Care Team Description 09/05/2024 Telephone [facility] Internal Medicine [address] [place] [address] [address] [place] [address] Mercedes Collins MD WOUND INFECTION; Pain 09/01/2024 10:15 AM CDT - 09/01/2024 11:59 PM CDT Hospital Encounter [facility] [address] [place] [address] [address] [place] [address] Mercedes Collins MD Discharge Disposition: Home or Self Care 09/01/2024 8:40 AM CDT Office Visit [facility] Internal Medicine [address] [place] [phone] Mercedes Collins MD Primary hypertension (Primary Dx); Chronic obstructive pulmonary disease, unspecified COPD type (HCC); Tachycardia, paroxysmal (HCC); Recurrent pulmonary embolism ([facility]); BIJAN (obstructive sleep apnea); Restrictive lung disease; Mixed hyperlipidemia; Postablative hypothyroidism; Type 2 diabetes mellitus with diabetic neuropathy, without long-term current use of insulin (HCC); Rheumatoid arthritis involving multiple sites with positive rheumatoid factor (HCC); 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[facility]); Chronic diastolic heart failure ([facility]); Screening mammogram, encounter for; Paresthesia; Ulcer of lower extremity with fat layer exposed, unspecified laterality (HCC); Ulcer of foot, limited to breakdown of skin, unspecified laterality (HCC); Cellulitis, unspecified cellulitis site 09/01/2024 Results Follow-Up [facility] Internal Medicine [address] [place] [address] [address] [place] [phone] Mercedes Collins MD 08/31/2024 Refill [facility] Internal Medicine [address] [place] [address] [address] [place] [address] Mercedes Collins MD Refill Request 08/29/2024 Telephone [facility] Internal Medicine [address] [place] [phone] Mercedes Collins MD WOUND INFECTION 08/11/2024 Telephone [facility] Internal Medicine [address] [place] [phone] Mercedes Collins MD SKIN PROBLEM 08/06/2024 Refill [facility] Internal Medicine [address] [place] [phone] Mercedes Collins MD Refill Request 08/04/[address] [phone] Mercedes Collins MD MEDICATION REFILL 07/28/2024 Refill [facility] Internal [address] [phone] Mercedes Collins MD Refill Request 07/20/2024 Results Follow-Up [facility] Internal Medicine [address] [place] [phone] Mercedes Collins MD 06/22/2024 Refill [facility] Internal Medicine [address] [place] [phone] Mercedes Collins MD MEDICATION REFILL 06/07/2024 1:20 PM CDT Office Visit [facility] Internal Medicine [address] [place] [phone] Mercedes Collins MD Routine general medical examination at health care facility (Primary Dx); Type 2 diabetes mellitus with diabetic neuropathy, without long-term current use of insulin (HCC); Tachycardia, paroxysmal ([facility]); Primary hypertension; Chronic diastolic heart failure ([facility]); Restrictive lung disease; BIJAN (obstructive sleep apnea); Chronic obstructive pulmonary disease, unspecified COPD type ([facility]); Postablative hypothyroidism; Mixed hyperlipidemia; Rheumatoid arthritis involving multiple sites with positive rheumatoid factor (HCC); 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HCC); Recurrent pulmonary embolism (HCC); Vitamin D deficiency; Narcotic dependence (HCC) from Last 3 Months Immunizations Immunization Administration Dates Next Due INFLUENZA VACCINE, TRIV. 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 Gender Identity Not on file Sexual Orientation Not on file Occupation Industry Job Start Date Job End Date Not on file Not on file Not on file Not on file Last Filed Vital Signs Vital Sign Reading Time Taken Comments Blood Pressure 118/86 09/01/2024 9:01 AM CDT Pulse 111 09/01/2024 9:01 AM CDT Temperature 36.7 C (98 F) 06/07/2024 1:28 PM CDT Respiratory Rate 18 01/21/2023 4:54 PM CREATIVE TECHNOLOGIST Oxygen Saturation 98% 09/01/2024 9:01 AM CDT Inhaled Oxygen Concentration 21% 07/18/2020 7 :57 AM CDT Weight 103.9 kg (229 lb) 09/01/2024 9:01 AM CDT Height 175.3 cm (5' 9) 09/01/2024 9:01 AM CDT Body Mass Index 33.82 09/01/2024 9:01 AM CDT Plan of Treatment Upcoming Encounters Date Type Department Care Team (Late st Contact Info) Description 2024 8:15 AM CDT Appointment Wound Care at [facility] [address] [place] [address] Todd Wheeler MD [address] [place] [phone] 10/06/2024 11:40 AM CDT Office Visit [facility] - Internal Medicine [address] [place] [address] [place] [phone] Mercedes Collins MD [address] [place] [phone] 12/01/2024 11:45 AM CDT Office Visit [facility] - INSURANCE COUNSEL [address] [place] [phone] Peterson Nance MD [address] [place] [phone] Health Maintenance Due Date Last Done Comments [...] VACCINE (3 - season) 2023 11/14/2020, 10/24/2020 MAMMOGRAM 10/12/2024 10/13/2023, 12/07/2021, 01/21/2022, Additional history exists Opioid Medication Agreement - Annual 10/12/2024 10/13/2023, 09/04/2021 DIABETES-SERUM CREATININE 10/16/20242023, 01/21/2023, 10/08/2022, Additional history exists INFLUENZA VACCINE (#1) 2024 4, 12/30/2011, 12/30/2011, Additional history exists DIABETES-HGB A1C 12/07/2024 06/07/2024, , 10/13/2023, Additional history exists DIABETES-FOOT EXAM WITH MONOFILAMENT 04/18/2025 04/18/2024, 03/22/2023, 04/13/2020 (Done Outside Per Report) DIABETES - URINE PROTEIN SCREENING 07/13/2025 07/13/2024, 10/17/2023, 07/21/2022, Additional history exists Opioid Medication Urine Drug Screening 07/13/2025 07/13/2024 PAP with HPV 11/02/2025 11/02/2020 COLON MONITORING 01/24/2026 01/25/2016, 10/2015, 06/25/2010, Additional history exists COLONOSCOPY - COLON CA SCREENING 01/24/2026 01/25/2016, 01/25/2016, 06/24/2010, Additional history exists Colorectal Cancer Screening 01/24/2026 DIABETES RETINOPATHY SCREENING 04/19/2026 04/19/2024, 04/20/2023 (Done Outside Per Report), 04/17/2023, Additional history exists HEPATITIS C SCREENING Completed 11/30/2012 HIV SCREENING Completed 02/24/2020 PNEUMOCOCCAL VACCINE 50+ Completed 06/27/2022, 12/17 DEPRESSION SCREENING Completed 06/07/2024, 03/18/2023, 06/27/2022, Additional history exists MEDICARE AWV CALENDAR YEAR Completed 06/07/2024, 05/21/2023, 10/07/2022, Additional history exists HEPATITIS B VACCINE Aged Out No longe [...] Name Priority Date/Time Associated Diagnosis Comments XR LUMBAR SPINE 2 OR 3VW Routine 09/01/2024 10:29 AM CDT Paresthesia TOXASSURE COMPREHENSIVE PROFILE Routine 07/13/2024 9:35 AM CDT Narcotic dependence (HCC) MICROALB/CREAT RATIO URINE RANDOM PANEL Routine 07/13/2024 9:35 AM CDT Type 2 diabetes mellitus with diabetic neuropathy, without long-term current use of insulin (HCC) TSH+FREE T4+FREE T3 Routine 07/13/2024 9 :35 AM CDT Postablative hypothyroidism VITAMIN D 25-HYDROXY Routine 07/13/2024 9:23 AM CDT Vitamin D deficiency HEMOGLOBIN A1C - POINT OF CARE (AMB) Routine 06/07/2024 1:37 PM CDT Type 2 diabetes mellitus with diabetic [...] P24 AG PANEL Routine 02/24/2020 8:11 AM CREATIVE TECHNOLOGIST Screening for HIV (human immunodeficiency virus) ENDOSCOPY, COLON, SCREENING Routine 01/25/2016 9:18 AM CREATIVE TECHNOLOGIST HEPATITIS C ANTIBODY Routine 11/30/2012 12:54 PM CDT Need for hepatitis C screening test from Last 3 Months or Most Recently Relevant to Health Maintenance Results * XR Lumbar Spine 2 or 3Vw (09/01/2024 10:29 AM CDT) Anatomical Region Laterality Modality Spine Radiographic Kourtney ging 09/01/2024 10:3 0 AM CDT Impressions 09/01/2024 11:29 AM CDT IMPRESSION: Degenerative disc and joint disease, most prominent at L5/S1. Report dictated by Anthony Louis MD (residential gas heat technician). ISteven MD have personally reviewed and interpreted this examination/study. > Interpreting Provider: Steven Posey MD on 09/01/2024 11:29 AM Narrative 09/01/2024 11:29 AM CDT PROCEDURE: XR LUMBAR SPINE 2 OR 3VW, DATE/TIME OF EXAM: 09/01/2024 10:29 AM, LOCATION [facility] INDICATION: R20.2: Paresthesia COMPARISON: CT abdomen and pelvis 07/13/2020. FINDINGS: The vertebral bodies are normally aligned. There is no fracture or compression deformity. Disc space narrowing is present at L5/S1 with associated osteophyte formation. Mild to moderate multilevel facet arthropathy. Cholecystectomy clips superimpose the right upper quadrant. Osteopenia. Procedure Note Steven Posey MD - 09/01/2024 PROCEDURE: XR LUMBAR SPINE 2 OR 3VW, DATE/TIME OF EXAM: 0:29 AM, LOCATION [facility] INDICATION: R20.2: Paresthesia COMPARISON: CT abdomen and pelvis 07/13/2020. FINDINGS: The vertebral bodies are normally aligned. There is no fracture or compression deformity. Disc space narrowing is present at L5/S1 with associated osteophyte formation. Mild to moderate multilevel facet arthropathy. Cholecystectomy clips superimpose the right upper quadrant. Osteopenia. IMPRESSION: Degenerative disc and joint disease, most prominent at L5/S1. Report dictated by Anthony Louis MD (residential gas heat technician). I, Steven Posey MD have personally reviewed and interpreted this examination/study. > Interpreting Provider: Steven Posey MD on 09/01/2024 11:29 AM us Mercedes Collins MD DIAGNOSTIC IMAGING ORDERABLES Final Result * TOXASSURE COMPREHENSIVE PROFILE URINE (07/13/2024 9:35 AM CDT) Summary FINAL [facility] INSURANCE BILL Comment: TOXASSURE COMP DRUG ANALYSIS,UR Test Result Flag Units Drug Present Hydrocodone 329 ng/mg creat Hydromorphone 40 ng/mg creat Dihydrocodeine 151 ng/mg creat Norhydrocodone 193 ng/mg creat Sources of hydrocodone include scheduled prescription medications. Hydromorphone, dihydrocodeine and norhydrocodone are expected metabolites of hydrocodone. Hydromorphone and dihydrocodeine are also available as scheduled prescription medications. Acetaminophen PRESENT Verapamil PRESENT Test Result Flag Units Ref Range Creatinine 168 mg/dL >=20 Declared Medications: Medication list was not provided. For clinical consultation, please call . Urine URINE SPECIMEN OBTAINED BY CLEAN CATCH PROCEDURE / Unknown 07/13/2024 9:35 AM CDT 07/13/2024 Narrative [facility] INSURANCE BILL - 07/20/2024 9:10 AM CDT Performed at: 01 - [employer] [address] [place] [id number] Repeat Photocomposing Machine Operator: Marce Og [facility], Phone: [phone] Specimen Comment: [employer], [employer] FLEX or MAT drug testin Specimen Comment: -Technical component - Data analysis performed at Specimen Comment: [facility], [address] [place] [address], [place] Specimen Comment: [id number]. [phone] Repeat Photocomposing Machine Operator Winston Solorio MD. us Mercedes Collins MD LAB - URINE CHEMISTRY ORDERABL ES Final Result [facility] INSURANCE BILL [address] [place] [address] * TSH+FREE T4+FREE T3 (07/13/2024 9:35 AM CDT) Pathologist [facility] TSH 3.320 0.450 - 4.500 uIU/mL [facility] INSURANCE BILL T3 Free 2.5 2.0 - 4.4 pg/mL [facility] INSURANCE BILL T4 Free 1.39 0.82 - 1.77 ng/dL [facility] INSURANCE BILL Blood BLOOD SPECIMEN / Unknown 07/13/2024 9:35 AM CDT 07/13/2024 Narrative [facility] INSURANCE BILL - 07/14/2024 7:09 AM CDT Performed at: [address] [id number] Repeat Photocomposing Machine Operator: Jose Daley PhD, Phone: [phone] Mercedes Collins MD LAB - CHEMISTRY ORDERABLES Fin al Result [facility] INSURANCE BILL [address] [place] [address] * MICROALB/CREAT RATIO URINE RANDOM PANEL (07/13/2024 9:35 AM CDT) [facility] Creatinine Urine 170.6 Not Estab. mg/dL [facility] INSURANCE BILL Microalbumin Urine 4.1 Not Estab. ug/mL [facility] INSURANCE BILL Microalbumin/Crea tinine Ratio 2 0 - 29 mg/g creat [facility] INSURANCE BILL Comment: Normal: 0 - 29 Moderately increased: 30 - 300 Severely increased: >300 Urine URINE SPECIMEN OBTAINED BY CLEAN CATCH PROCEDURE / Unknown 07/13/2024 9:35 AM CDT 07/13/2024 Narrative [facility] INSURANCE BILL - 07/14/2024 10:10 AM CDT Performed at: [address] [id number] Repeat Photocomposing Machine Operator: Jose Daley PhD, Phone: [phone] Mercedes Collins MD LAB - URINE CHEMISTRY ORDERABL ES Final Result Performing Organization Address [facility] Co de Phone Number [facility] INSURANCE BILL [address] [place] [address] * VITAMIN D 25-HYDROXY (07/13/2024 9:23 AM CDT) Vitamin D, 25 Hydroxy 47.6 30.0 - 100.0 ng/mL [facility] INSURANCE BILL Comment: Vitamin D deficiency has been defined by the [place] of Medicine and an Endocrine Society practice guideline as a level of serum 25-OH vitamin D less than 20 ng/mL (1,2). The Endocrine Society went on to further define vitamin D insufficiency as a level between 21 and 29 ng/mL (2). 1. IOM ([place] of Medicine). 2010. Dietary reference intakes for calcium and D. [place]: The National Academies Press. 2. Jefferson MF, Noemi LESTER, Ryan ORNELAS, et al. Evaluation, treatment, and prevention of vitamin D deficiency: an Endocrine Society clinical practice guideline. JCEM. 2010; 96(7):1911-30. Blood BLOOD SPECIMEN / Unknown 07/13/2024 9:23 AM CDT 07/13/2024 Narrative [facility] INSURANCE BILL - 07/14/2024 8:11 AM CDT Performed at: [address] [place] [id number] Repeat Photocomposing Machine Operator: Jose Daley PhD, Phone: [phone] Mercedes Collins MD LAB - CHEMISTRY ORDERABLES Fin al Result Performing Organization Address [facility] Co de Phone Number [facility] INSURANCE BILL [address] [place] [address] * HEMOGLOBIN A1C - POINT OF CARE (HgbA1C) (06/07/2024 1:37 PM CDT) Hemoglobin A1c POCT 8.1 % [facility] Expiration Date 01/04/[address] [facility] Lot # [id number] [facility] QC Verified Yes Yes [facility] Blood BLOOD SPECIMEN / Unknown 06/07/2024 1:37 PM CDT us Mercedes Collins MD LAB - POINT OF CARE ORDERABLES Final Result [facility] [address] [place] [address], [facility] [phone] * (ABNORMAL) COMPREHENSIVE METABOLIC PANEL (10/17/2023 10:25 [...] Resulting Agency Comment Lab Testing performed at: [facility] [id number] us Mercedes Collins MD LAB - CHEMISTRY ORDERABLES Fin al Result [facility] INSURANCE BILL [address] [place] [address] * Mammo Bilat Screening [place] (10/13/2023 [...] is no suspicious finding in either breast. us Mercedes Collins MD MAMMO ORDERABLES Final Result * SCAN ONLY HIS OPIOID MED AGREEMENT (10/13/2023) 10/13/2023 Narrative 10/13/2023 Ordered by an unspecified provider. us Scanned Document SCANNING ONLY Final Result * EYE EXAM (06/13/2022) Anatomical Region Laterality Modality Other 06/13/2022 Narrative 06/13/2022 Ordered by an unspecified provider. us Scanned Document SCANNING ONLY Final Result * HPV DETECTION HIGH RISK MELINDA (11/02/2020 2:27 PM CDT) High Risk Human Papilloma Result Not detected Not detected 11/07/2020 5:01 PM CDT [facility] High Risk Human Papilloma Interp 11/07/2020 5:01 PM CDT [facility] PATHOLOGY LAB Comment:High Risk Human Dev lloma Virus was Not Detected. Pathology/Cytolo gy MISCELLANEOUS SAMPLES / Unknown 11/02/2020 2:27 PM CDT 11/05/2020 12:05 PM CDT Narrative [facility] PATH[facility]Y LAB - 11/07/2020 5:01 PM CDT Nucleic acid isolated from the specimen was analyzed with a nucleic acid amplification test (FDA approved Gen-Probe HPV Assay) to detect high risk human papilloma virus (Types: 16, 18, 31, 33, 35, 39, 45, 51, 52, 56, 58, 59, 66, and 68). The reference range is Not Detected. Comment: These test results should not be used as the sole basis for clinical assessment and treatment of patients. These results should always be correlated with other available data (cytology, histology, and clinical information). Peterson Nance MD LAB - MICROBIOLOGY ORDERABLES Fi nal Result [facility] PATHOLOGY LAB [facility] [address] [phone] * HIV-1 HIV-2 ANTIBODY + HIV P24 AG PANEL (02/24/2020 8:11 AM CREATIVE TECHNOLOGIST) [facility] HIV Screen 4th Generation w Reflex Non Reactive Non Reactive [facility] INSURANCE BILL Blood BLOOD SPECIMEN / Unknown 02/24/2020 8:11 AM CREATIVE TECHNOLOGIST 02/24/2020 Narrative Resulting Agency Comment Lab Testing performed at: [facility] [address] [facility] [phone] Mercedes Collins MD LAB - CHEMISTRY ORDERABLES Fin al Result [facility] INSURANCE BILL [address] [place] [address] * ENDOSCOPY, COLON, SCREENING (01/25/2016 9:18 AM CREATIVE TECHNOLOGIST) Pathologist [facility] Report Endoscopy POC _ Patient Name: Joselin Canada Procedure Date: 01/25/2016 9:18 AM Date of [...] colon cancer. Procedure Code(s): --- Professional --- 95522, Colonoscopy, flexible; diagnostic, including collection of specimen(s) by brushing or washing, when performed (separate procedure) --- Technical --- 37118, Colonoscopy, flexible; diagnostic, including collection of specimen(s) [...] or abscess without bleeding CPT copyright 2015 [employer]. All rights reserved. The codes documented in this report are preliminary and upon immunohematologist review may be revised to meet current compliance requirements. Nikita Fraser MD 01/25/2016 9:58:01 AM This report has been signed electronically. Number of Addenda: 0 Note Initiated On: 01/25/2016 9:18 AM [facility] ENDOSCOPY 01/25/2016 9:18 AM CREATIVE TECHNOLOGIST us Nikita Fraser MD GI PROCEDURE ORDERABLES Edited R esult - Final [facility] ENDOSCOPY * HEPATITIS C ANTIBODY (11/30/2012 12:54 [...] a more specific supplemental or PCR testing. [facility] offers HCV Ab w/Reflex to Verification test #[id number]. Blood specimen (specimen) BLOOD SPECIMEN / Unknown 11/30/2012 12:54 PM CDT 11/30/2012 7:02 PM CDT Narrative Resulting Agency Comment [facility] [address] [facility] [phone] us José Ashton MD LAB - CHEMISTRY ORDERABLES Chrissie l [facility] [address] [place] [address] from Last 3 Months or Most Recently Relevant to Health Maintenance [place] [address] [employer] MEDICARE ADV [facility] MEDICARE [facility] Advance Directives Documents on File Type Date Recorded Patient Stitchdowns Toe Former Expl anation Adv Directive/Living Will/POA 02/20/2013 9:49 [...] 5:18 PM 2010 11:41 PM Care Teams Mold Tooling Technician Relationship Specialty Start Date End Date Mercedes Collins MD [address] [employer] [address] [place] [address] PCP - General Internal Medicine 05/17/19 Mercedes Collins MD [address] [facility] [address] [place] [address] PCP - Attributed-[facility] [place] 02/16/23 Chucky Menendez MD [address] [place] [address] [address] [place] [address] Agile Business Analyst Pulmonary Disease 09/20/15 Wade Zelaya Jr., MD [address] [place] [address] [address] [place] [address] Rheumatology 12/01/16 Danielle Reina MD [address] [place] [phone] Orthopedic Surgery 12/01/16 Ramsey Barbosa MD [address] [place] [address] Internal Medicine 10/29/22
--- OUTSIDE RECORDS SUMMARY | 2024-09-05 16:12 | XMS_ITS | Encounter Summary ---
Author Organization [facility] Address [address] [facility] [place] [address] Care Team Providers Care National Business Director Name Role Phone Chucky Menendez MD Unavailable Nathalie Guzman MD, Wade Lopes Unavailable [phone] Danielle Reina MD Unavailable [phone] Mercedes Collins MD Primary Care Provider Ramsey Barbosa MD Unavailable Mercedes Collins MD Unavailable [phone] Reason for Visit * Reason Onset Date Comments Update 04/14/2024 Encounter Details Date Type Department Care Team (Late st Contact Info) Description 04/14/2024 Telephone [facility] Medical [facility] - Internal Medicine [address] [facility] [address] [place] [phone] Mercedes Collins MD [address] [place] [phone] Update Social History Tobacco Use Types Packs/Day Years Used Date Smoking Tobacco: Former Smokeless Tobacco: Never Comments:Quit 30 years ago Alcohol Use Standard Drinks/Week Comments Not Currently 0 (1 standard drink = 0.6 oz pur e alcohol) PHQ-2 Answer Date Recorded Patient Health Questionnaire-2 Score 0 02/03/2024 Comments No Sex and Gender Information Value Date Recorded Sex Assigned at Not on file Legal Sex 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 Answer Date of Assessment Author No 07/16/2020 12:15 PM CDT Vipin Ram RN * Is person blind or have serious difficulty seeing? Answer Date of Assessment Author No 07/16/2020 12:15 PM CDT Vipin Ram RN * Does person have serious difficulty walking/climbing stairs? Answer Date of Assessment Author No 07/16/2020 12:15 PM SUKUMART Vipin Ram RN * Does person have difficulty dressing/bathing? Answer Date of Assessment Author No 07/16/2020 12:15 PM Vipin Cornell RN * Does person have difficulty doing errands alone? Answer Date of Assessment Author No 07/16/2020 12:15 PM Vipin Cornell RN documented as of this encounter Mental Status * Does person have difficulty concentrating/remembering/making decisions? Answer Entry Date Author No 07/16/2020 12:15 PM Vipin Cornell RN documented in this encounter Miscellaneous Notes * Telephone Encounter [...] wanted to faint. Patient was taken to [facility] to be examined. Expected Response from the Clinic? ( ex. Call back, etc..) [phone] Did you notify caller it would take 24-48 hours for the office to get back to them? YES ING IN MACHINE TENDER HELPER documented in this encounter Plan of Treatment Upcoming Encounters Date Type Department Care Team (Late st Contact Info) Description 2024 8:15 AM CDT Appointment Wound Care at [facility] [address] [place] [address] Todd Wheeler MD [address] [place] [phone] 10/06/2024 11:40 AM CDT Office Visit [facility] Medical [facility] - Internal Medicine [address] [place] [address] [address] [place] [address] Mercedes Collins MD [address] [place] [phone] 12/01/2024 11:45 AM CDT Office Visit [facility] [place] [address] [place] [phone] Peterson Nance MD [address] [place] [phone] documented as of this encounter Visit Diagnoses Not on filedocumented in this encounter Care Teams National Business Director Relationship Specialty Start Date End Date Mercedes Collins MD [address] [place], [place] [address] [address] [place] [phone] PCP - General Internal Medicine 05/17/19 Mercedes Collins MD [address] [place] [address] [address] [place] [phone] PCP - Attributed-[place] 02/16/23 Chucky Menendez MD [address] [place] [address] [address] [place] [address] Irrigator Overhead Pulmonary Disease 09/20/15 [place] [address] [place] [address] Rheumatology 12/01/16 Danielle Reina MD [address] [place] [phone] Orthopedic Surgery 12/01/16 Ramsey Barbosa MD [address] [address] Internal Medicine 10/29/22 documented as of this encounter
--- OUTSIDE RECORDS SUMMARY | 2024-09-05 16:12 | XMS_ITS | Clinical Summary ---
Author Organization [facility] Address [address] [place] [address] Care Team Providers Care Continuity Editor Name Role Phone Mercedes Collins MD Primary Care Provider + Andrzej Grimes OD Unavailable [phone] Ramsey Barbosa MD Unavailable [phone] Juana Leal RN Unavailable [phone] Allergies Active Allergy Reactions Criticality Noted Date Comments Ciprofloxacin Rash,Unknown,Diarrh ea,Urticaria High 09/10/2009 Leflunomide Unknown High 12/11/2015 Levofloxacin Other (See comments),Unknown Low 02/19/2009 Ruptured ligaments Lisinopril Other (See comments) Low 04/14/2024 Unsure of reaction, states was taken off for either diarrhea or swelling Simvastatin Other (See comments) Low 01/25/2016 Bone pain Bone pain Kjpwrtc-Kgm-Ddo Reductase Inhibitors Muscle pain,Unknown Medium 05/18/2014 Medications [...] Active XARELTO 20 mg tablet daily Active cholecalciferol (VITAMIN D-3) 2,000 unit [...] every 6 (six) hours as needed Active inFLIXimab (REMICADE) 100 mg injection Infuse [...] g topically 4 (four) times a day 024 Active ipratropium (ATROVENT) 21 mcg (0.03 %) nasal spray Administer 1-2 sprays into each nostril 3 (three) times a day Active predniSONE (DELTASONE) 5 mg tablet Take 1 tablet (5 mg) by mouth daily 024 Active Jardiance 10 mg tablet TAKE 1 [...] Apply to vulva twice daily 024 Active pioglitazone (ACTOS) 15 mg tablet Take 1 tablet (15 mg total) by mouth daily 025 Active spironolactone (ALDACTONE) 25 mg tablet TAKE 1/2 TABLET BY MOUTH EVERY DAY 45 tablet 3 025 Active Anoro Ellipta 62.5-25 mcg/actuation blister with device Inhale 1 puff daily 60 each 5 025 Active prednisoLONE acetate (PRED FORTE) 1 % ophthalmic suspensionIndicatio ns:Bilateral chronic anterior uveitis 1 drop both eyes 4x/day x 1 week, then 3x/day x 1 week, then 2x/day x 1 week, then 1x/day x 1 week 5 mL 025 Active Rybelsus 3 mg tablet PLEASE SEE ATTACHED FOR DETAILED DIRECTIONS Active predniSONE (DELTASONE) 1 mg tabletIndications: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 120 tablet [address] (PROTONIX) 40 mg EC tabletIndications:T reatment of Non-Bleeding Gastric Disorder Take 1 tablet (40 mg total) by mouth daily 30 tablet [address] (PROTONIX) 40 mg EC tabletIndications:T reatment of Non-Bleeding Gastric Disorder Take 1 tablet (40 mg total) by mouth daily 30 tablet 11 021 2024 Discontinued(R eorder) famotidine (PEPCID) 20 mg tablet Take 1 tablet (20 mg total) by mouth daily 2024 Discontinued Active Problems Problem Noted Date [...] TSPOT, HIV, HBV, HCV Assessment & Plan (07/27/2024 12:59 PM CDT): AC quiet on exam today. Patient asymptomatic. Finished course of topical PF 4 days ago without any recurrence in symptoms. Recently started oral course of pred for erythema nodosum / RA. IOP stable today. Continue off drops Call with any worsening symptoms - increase in photophobia, pain, brow ache, redness. RTC as scheduled 04/[address] Mar. Assessment & Plan (06/24/2024 11:38 AM CDT): Patient having mild flare OS, ? OD No cell noted OD but symptomatic / tr-1+ cell OS > symptomatic Patient states she is also having a RA flare, had infusion yesterday IOP stable, excellent Per notes has responded well to PF1% in past Educated and reassured patient of findings Plan: PF1% qd OD PF1% 4-3-2-1 RTC 1 month or PRN sooner with worsening s/s Assessment & Plan (04/19/2024 1:31 PM OPTICIAN APPRENTICE DISPENSING): No active inflammation, call if experiencing flare Assessment & Plan (04/17/2023 10:29 AM OPTICIAN APPRENTICE DISPENSING): Quiet both eyes (OU), RTC if experiencing flare Assessment & Plan (04/18/2022 12:13 PM OPTICIAN APPRENTICE DISPENSING): No sign of inflammation or sequelae from uveitis PLAN observe Diabetes mellitus type 2 without retinopathy 04/2022 Assessment & Plan (04/19/2024 1:31 PM OPTICIAN APPRENTICE DISPENSING): Pt ed. Stressed BG control (HbA1C<7) to reduce the risk for diabetic ocular complications. Lab Results Component Value Date HGBA1C 5.8 (H) 06/01/2015 Assessment & Plan (04/17/2023 10:29 AM OPTICIAN APPRENTICE DISPENSING): No retinopathy both eyes (OU). Pt ed. Stressed BG control (HbA1C<7) to reduce the risk for diabetic ocular complications. Lab Results Component Value Date HGBA1C 5.8 (H) 06/01/2015 Osteopenia 02/22/2022 Esophageal reflux 12/10/2021 Age-related cataract of both eyes 04/15/2021 Assessment & Plan (06/24/2024 11:37 AM CDT): ADL being met / NVS, monitor. Excellent BCVA with habitual SRx Assessment & Plan (04/19/2024 1:31 PM OPTICIAN APPRENTICE DISPENSING): Not v/s, monitor Assessment & Plan (05/06/2023 9:14 AM CDT): Stable best-corrected visual acuity (BVA), monitor Release updated glasses Rx Assessment & Plan (04/15/2021 11:03 AM OPTICIAN APPRENTICE DISPENSING): She is not bothered, observe Right rotator cuff tear arthropathy 11/24/2020 Controlled substance agreement signed 11/20/2020 Erythema nodosum 09/03/2020 Current chronic use of systemic steroids 021 Chronic diastolic heart failure 09/02/2020 Overview (05/30/2021): TTE 07/18/20 with normal LVEF, evidence of diastolic dysfunction, no valvular abnormalities [facility] 2013 without significant disease Negative HANNA November 2020 proBNP = 10 in August 2020 History of uveitis 09/02/2020 Assessment & Plan (04/15/2021 11:02 AM OPTICIAN APPRENTICE DISPENSING): She has no active inflammation today. Follow [...] Problem Noted Date Diagnosed Date Resolved Date Family history of scleroderma 09/03/2020 11/24/2020 Tachycardia, paroxysmal 05/16/2020 01/0 08/2022 Overview (05/30/2021): 07/2020- Extended Holter with an avg HR 91 bpm, rare PVCs and PACs Encounters Date Type Department Care Team Description 08/24/2024 9:40 AM CDT Office Visit [facility] Gastroenterology [facility] Medicine 12th [place] [address] [place] [phone] Jovani Almaguer MD Abdominal pain; Bloating 07/27/2024 12:30 PM CDT Office Visit [facility] Ophthalmology [address] [facility] 6th [address], [address] [facility] [place] [phone] Daysi Deras, FABRICIO Bilateral chronic anterior uveitis (Primary Dx) 07/25/2024 1:00 PM CDT Infusion [facility] [address] [place] [phone] High risk medication use (Primary Dx); Rheumatoid arthritis involving multiple sites with positive rheumatoid factor (HCC) 07/15/2024 10:30 AM CDT Office Visit [facility] Rheumatology [address] [facility] 5th [place] [address] [place] [phone] Jeremi López MD PhD Rheumatoid arthritis involving multiple sites with positive rheumatoid factor (HCC) (Primary Dx); High risk medication use; Bilateral chronic anterior uveitis; Erythema nodosum; Current chronic use of systemic steroids; Interstitial lung disease (HCC) 06/29/2024 Telephone [facility] Rheumatology [address] [facility] [address] [place] [phone] Bonnie Neri RMA 06/24/2024 11:00 AM CDT Office Visit [facility] Ophthalmology [address] [facility] 6th Floor, [address] [facility] [place] [phone] Dev Gonzales, OD Bilateral chronic anterior uveitis (Primary Dx); Age-related cataract of both eyes 06/23/2024 2:00 PM CDT Infusion [facility] [address] [place] [phone] High risk medication use (Primary Dx); Rheumatoid arthritis involving multiple sites with positive rheumatoid factor (HCC) 06/23/2024 Telephone [facility] Infusion Therapy [address] [facility] 5th [place] [address] [place] [address] Nesha Carrasco, ABHILASH Med Management 06/23/2024 Telephone [facility] Ophthalmology [address] [place] [address] Jennifer Mar, FABRICIO Scheduling Appointments from Last 3 Months Surgical History Surgery Date Site/Laterality Comments FL LIG/TRNSXJ FLP TUBE ABDL/ VAG APPR UNI/BI Tubal Ligation - (Added by TW Conv) ARTHRODESIS Arthrodesis Cervical - (Added by TW Conv) FL CHOLECYSTECTOMY Cholecystectomy - (Added by TW Conv) [...] the money to buy more. Never true 07/26/19 25 Within the past 12 months, t he food you bought just didn't last and you didn't have money to get more. Never true 07/25/2024 Personal Safety Answer Date Recorded Have you ever been in or are you currently in a harmful physical or emotional relationship or is someone making you feel afraid or unsafe? Denies 07/25/2024 Comments Unknown Sex and Gender Information Value Date Recorded Sex Assigned at Not on file Legal Sex Female 7:32 PM OPTICIAN APPRENTICE DISPENSING Gender Identity Not on file Sexual Orientation Not on file Obstetrics History Last Filed Vital Signs Vital Sign Reading Time Taken Comments Blood Pressure 150/99 08/24/2024 10:05 AM CDT Pulse 96 08/24/2024 10:05 AM CDT Temperature 36.1 C (96.9 F) 08/24/2024 10:05 AM CDT Respiratory Rate 18 07/25/2024 1:08 PM CDT Oxygen Saturation 97% 08/24/2024 10:05 AM CDT Inhaled Oxygen Concentration - - Weight 103.9 kg (229 lb) 08/24/2024 10:05 AM CDT Height 172.7 cm (5' 8) 08/24/2024 10:05 AM CDT Body Mass Index 34.82 08/24/2024 10:05 AM CDT Plan of Treatment Health Maintenance Due Date [...] 01/20/2023 07/21/2022, 06/16, 02/24/2020, Additional history exists Breast Cancer Screening-Mammogram 10/12/2024 10/13/2023, 10/13/2023, 01/21/2022, Additional history exists Lipid Panel 10/16/2024 10/17/2023, 06/0 06/2022, 12/15/2020, Additional history exists Influenza Vaccine (#1) 2024 4, 03/04/2013, 12/30/2011, Additional history exists Dilated Eye Exam 04/19/2025 04/19/2024, 02/2023, 04/18/2022, Additional history exists eGFR 07/16/2025 07/16/2024, 03/20, 02/19/2024, Additional history exists Hepatitis C Screening Completed 01/23/2017 Pneumococcal vaccine <65 Completed 06/27/2022, 12/17 Procedures Procedure Name Priority Date/Time Associated Diagnosis Comments TB TEST, QUANTIFERON GOLD Routine 07/16/2024 10:09 AM CDT Rheumatoid arthritis involving multiple sites with positive rheumatoid factor (HCC) CRP (ACUTE PHASE) Routine 07/16/2024 10: 09 AM CDT Rheumatoid arthritis involving multiple sites with positive rheumatoid factor (HCC) ERYTHROCYTE SEDIMENTATION RATE Routine 07/16/2024 10:09 AM CDT Rheumatoid arthritis involving multiple sites with positive rheumatoid factor (HCC) COMPREHENSIVE METABOLIC PANEL Routine 07/16/2024 10:09 AM CDT Rheumatoid arthritis involving multiple sites with positive rheumatoid factor (HCC) CBC WITHOUT DIFFERENTIAL Routine 07/16/2024 10:09 AM CDT Rheumatoid arthritis involving multiple sites with positive rheumatoid factor (HCC) HEPATITIS C ANTIBODY Routine Gen Lab 01/23/2017 1:16 PM OPTICIAN APPRENTICE DISPENSING SCREENING MAMMOGRAM Routine 10/19/2012 1 2:46 PM CDT SERUM LIPID PANEL Routine 10/19/2012 12: 05 PM CDT from Last 3 Months or Most Recently Relevant to Health Maintenance Results * TB test, quantiferon gold (07/16/2024 10:09 AM CDT) Pathologist [facility] QuantiFERON Incubation Incubation performed. [facility] - 01 QuantiFERON Criteria Comment [facility] - 01 Comment: QuantiFERON-TB Gold Plus is a qualitative indirect test for M tuberculosis infection (including disease) and is intended for use in conjunction with risk assessment, radiography, and other medical and diagnostic evaluations. The QuantiFERON-TB Gold Plus result is determined by subtracting the Nil value from either TB antigen (Ag) value. The Mitogen tube serves as a control for the test. QuantiFERON TB1 Ag Value 0.00 IU/mL [facility] - 01 QuantiFERON TB2 Ag Value 0.02 IU/mL [facility] - 01 QuantiFERON Nil Value 0.00 IU/mL [facility] - 01 QuantiFERON Mitogen Value 3.71 IU/mL [facility] - 01 QuantiFERON-TB Gold Plus Negative Negative [facility] - 01 Comment: No response to M tuberculosis antigens detected. Infection with M tuberculosis is unlikely, but high risk individuals should be considered for additional testing (ATS/IDSA/CDC Clinical Practice Guidelines, 2017). The reference range is an Antigen minus Nil result of <0.35 IU/mL. Chemiluminescence immunoassay methodology Blood 07/16/2024 10:0 9 AM CDT 07/16/2024 Narrative [facility] - 07/19/2024 10:07 PM CDT Performed at: [address] [place] [id number] International Controller: Jose Daley PhD, Phone: [phone] [facility] Clive López MD PhD LAB BLOOD ORDERABLE S Final Result [facility] * (ABNORMAL) Erythrocyte sedimentation rate (07/16/2024 10:09 AM CDT) [facility] Erythrocyte sedimentation rate 65(H) 0 - 40 mm/hr [facility] - 01 Blood 07/16/2024 10:0 9 AM CDT 07/16/2024 Narrative [facility] - 07/17/2024 7:08 AM CDT Performed at: [address] [place] [address] [id number] International Controller: Jose Daley PhD, Phone: [phone] Jeremi López MD PhD LAB BLOOD ORDERABLE S Final Result Performing Organization Address [facility] Co de Phone Number [facility] - 01 * (ABNORMAL) CBC without differential (07/16/2024 10:09 AM CDT) Pathologist [facility] WBC 9.9 3.4 - 10.8 x10E3/uL [facility] - 01 RBC 4.79 3.77 - 5.28 x10E6/uL [facility] - 01 Hgb 13.1 11.1 - 15.9 g/dL [facility] - 01 Hct 41.7 34.0 - 46.6 % [facility] - 01 MCV 87 79 - 97 fL [facility] - 01 MCH 27.3 26.6 - 33.0 pg [facility] - 01 MCHC 31.4(L) 31.5 - 35.7 g/dL [facility] - 01 Rdw 12.1 11.7 - 15.4 % [facility] - 01 Platelets 391 150 - 450 x10E3/uL [facility] - 01 Blood 07/16/2024 10:0 9 AM CDT 07/16/2024 Narrative [facility] - 07/17/2024 7:08 AM CDT Performed at: [address] [place], [place] [id number] [place], [place] [id number] International Controller: Jose Daley PhD, Phone: [phone] us Jeremi López MD PhD LAB BLOOD ORDERABLE S Final Result Performing Organization Address City/[facility]/ZIP Co de Phone Number [facility] - 01 * CRP (acute phase) (07/16/2024 10:09 AM CDT) [facility] CRP 6 0 - 10 mg/L [facility] - 01 Blood 07/16/2024 10:0 9 AM CDT 07/16/2024 Narrative [facility] - 07/17/2024 9:09 AM CDT Performed at: 01 - [address] [id number] International Controller: Jose Daley PhD, Phone: [phone] Jeremi López MD PhD LAB BLOOD ORDERABLE S Final Result [facility] - 01 * (ABNORMAL) Comprehensive metabolic panel (07/16/2024 10:09 AM CDT) [facility] Glucose 132(H) 70 - 99 mg/dL [facility] - 01 BUN 14 8 - 27 mg/dL [facility] - 01 Creatinine, Serum 0.87 0.57 - 1.00 mg/dL [facility] - 01 eGFR 75 >59 mL/min/1.7 3 [facility] - 01 BUN/creat ratio 16 12 - 28 [facility] - 01 Sodium 138 134 - 144 mmol/L [facility] - 01 Potassium, sr 4.2 3.5 - 5.2 mmol/L [facility] - 01 Chloride 100 96 - 106 mmol/L [facility] - 01 CO2 23 20 - 29 mmol/L [facility] - 01 Calcium 9.4 8.7 - 10.3 mg/dL [facility] - 01 Protein, sr 7.3 6.0 - 8.5 g/dL [facility] - 01 Albumin 3.9 3.9 - 4.9 g/dL [facility] - 01 Globulin, Total 3.4 1.5 - 4.5 g/dL [facility] - 01 Bilirubin, Total 0.6 0.0 - 1.2 mg/dL [facility] - 01 Alk phos 95 44 - 121 IU/L [facility] - 01 AST 17 0 - 40 IU/L [facility] - 01 ALT 20 0 - 32 IU/L [facility] - 01 Blood 07/16/2024 10:0 9 AM CDT 07/16/2024 Narrative [facility] - 07/17/2024 7:08 AM CDT Performed at: 01 - [address] [id number] International Controller: Jose Daley PhD, Phone: [phone] us Jeremi López MD PhD LAB BLOOD ORDERABLE S Final Result Performing Organization Address City/[facility]/ZIP Co de Phone Number [facility] - 01 * Hepatitis C antibody (01/23/2017 1:16 PM OPTICIAN APPRENTICE DISPENSING) Hep C Ab Nonreactive Nonreactive [facility] Comment: Interpretive Data Positive and greyzone results should be confirmed by a molecular method. If positive or greyzone, a second separately collected sample should be submitted for Hepatitis C Virus RNA. Detection and Quantitation by Real-Time Reverse Swatch Cutter-PCR.Current Interpretive data was last revised on 2016. Blood specimen (specimen) 01/23/2017 1:16 PM OPTICIAN APPRENTICE DISPENSING 01/23/2017 4:49 PM OPTICIAN APPRENTICE DISPENSING Narrative [facility] - 01/24/2017 9:19 AM OPTICIAN APPRENTICE DISPENSING Rocio Ellis MD LAB MICROBIOLOGY - GENERAL OR DERABLES Edited Result - Final Performing Organization Address City/[facility] Co de Phone Number [facility] Department [place] [address] * Screening Mammogram (10/19/2012 12:46 PM CDT) Anatomical Region Laterality Modality Breast N/A Mammography 10/19/2012 12:4 6 PM CDT Narrative 10/20/2012 1:30 PM CDT ANGELICA BYNUM M.D. FINAL REPORT ACC# Date Time Exam [id number] Oct 19, 2012 12:46:00 [facility] [id number] Screening Mamm Bilat Technologist(s): Dilia Gregg; ; EXAMINATION: Mammogram Findings: A Full-Field Digital Screening Mammogram was performed. Views obtained: bilateral craniocaudal; bilateral mediolateral oblique. Computer Aided Detection was performed with Moblico.3 version 9.3. The present examination has been compared to prior imaging studies performed at [facility] on 10/06/2011, 03/05/2010 and 06/23/2008. The [...] M.D. FINAL REPORT ACC# Date Time Exam [id number] Oct 19, 2012 12:46:00 [facility] [address] Screening Mamm Bilat Technologist(s): Dilia Gregg; ; EXAMINATION: Mammogram Findings: A Full-Field Digital Screening Mammogram was performed. Views obtained: bilateral craniocaudal; bilateral mediolateral oblique. Computer Aided Detection was performed with Moblico.3 version 9.3. The present examination has been compared to prior imaging studies performed at [facility] on 10/06/2011, 03/05/2010 and 06/23/2008. The [...] Most Recently Relevant to [place] [address] T MEDICARE FOR LIFE MEDICARE [employer]ALTH[employer] OPEN ACCESS [facility] [id number] AET[employer] MEDICARE [facility]IC[facility] Address: [facility] [id number] [place] [phone] FOR LIFE [facility] [place] [address] Care Teams Continuity Editor Relationship Specialty Start Date End Date Mercedes Collins MD [address] [address] PCP - General 06/25/17 Andrzej Grimes, OD [address] [place] [address] Referring Physician Ophthalmology 04/18/20 Ramsey Barbosa MD [address] [place] [address] Communications Marketing Intern Transplant 05/30/21 Juana Leal, RN [address] [address] Heart Failure Coordinator Ice Maker 05/30/21
--- OUTSIDE RECORDS SUMMARY | 2024-09-05 16:12 | XMS_ITS | Encounter Summary ---
Author Organization [facility] Address [address] [place] [address] Care Team Providers Care Extractor Tender Raw Stock Name Role Phone Marcos Banks MD Unavailable [phone] Chucky Menendez MD Unavailable Nathalie Guzman MD, Wade Lopes Unavailable [phone] Danielle Reina MD Unavailable [phone] Mercedes Collins MD Primary Care Provider [phone] Mercedes Collins MD Unavailable [phone] Carlota Hyman ATM MECHANIC-SHELF STOCKER Unavailable [phone] Mercedes Collins MD Unavailable [phone] Ladan Acosta RN Unavailable Ramsey Barbosa MD Unavailable Mercedes Collins MD Unavailable [phone] Stacey Michelle Unavailable Reason for Visit * Reason Onset Date Comments Pain Pelvic 12/17/2020 Encounter Details Date Type Department Care Team (Late st Contact Info) Description 12/17/2020 Telephone [facility] Ob[facility]etric[facility] Gynecology and Women's [facility] [address] [place] [address] Dominick Dodson MD [address] [place] [address] Pain Pelvic Social History Tobacco Use Types Packs/Day Years Used Date Smoking Tobacco: Former Smokeless Tobacco: Never Comments:Quit 30 years ago Alcohol Use Standard Drinks/Week Comments Not Currently 0 (1 standard drink = 0.6 oz pur e alcohol) Comments No Sex and Gender Information Value Date Recorded Sex Assigned at Not on file Legal Sex Female 6:43 AM FRAMER Gender Identity Not on file Sexual Orientation [...] She agrees to 345pm appt tomorrow at [facility]'s office. Directions given over the phone, but will send mychart msg. * Telephone Encounter - Radha Burden - 12/17/2020 2:37 PM CDT Patient called in- having severe pelvic pain- Thursday was unbearable- today is pretty bad 10/26 especially when voiding- Was given samples and wonders if this is the cause- Please call [phone] documented in this encounter Plan of Treatment Upcoming Encounters Date Type Department Care Team (Late st Contact Info) Description 2024 8:15 AM CDT Appointment Wound Care at [facility] [address] [place] [address] Todd Wheeler MD [address] [place] [phone] 10/06/2024 11:40 AM CDT Office Visit [facility] - Internal Medicine [address] [place] [address] [place] [phone] Mercedes Collins MD [address] [place] [phone] 12/01/2024 11:45 AM CDT Office Visit [facility] - FRAME WIRER [address] [place] [phone] Peterson Nance MD [address] [place] [address], [place] [address] documented as of this encounter Visit Diagnoses Not on filedocumented in this encounter Additional Health Concerns Infection Onset Date Last Indicated Resolved Time COVID-19 Under Investigation 01/21/2023 01/21/2023 01/21/2023 6:24 PM FRAMER documented as of this encounter Care Teams Extractor Tender Raw Stock Relationship Specialty Start Date End Date Mercedes Collins MD [address] [place] [phone] PCP - General Internal Medicine 05/17/19 Mercedes Collins MD [address] [place] [phone] PCP - Attributed-MSSP 10/17/20 04/15/21 Carlota Hyman, ATM MECHANIC-SHELF STOCKER [address] [place] [phone] PCP - Attributed-MSSP 04/16/21 06/15/21 Mercedes Collins MD [address] [place] [address] PCP - Attributed-MSSP 06/16/21 08/11/23 Mercedes Collins MD [address] [place] [address] PCP - Attributed-Coventry MA 02/16/23 Marcos Banks MD [address] [place] [address] Cardiology 09/29/13 10/28/22 Chucky Menendez MD [address] [facility] [address] [place] [address] Instrument Shop Supervisor Pulmonary Disease 09/20/15 Wade Zelaya Jr., MD [address] [facility] [address] [place] [address] Rheumatology 12/01/16 Danielle Reina MD [address] [facility], [address] Orthopedic Surgery 12/01/16 Ladan Acosta, ABHILASH Life Skills Coordinator VolunteerAmmonia Refrigeration Technician 07/23/22 08/14/22 Ramsey Barbosa MD [address] [address] Internal Medicine 10/29/22 Stacey Michelle [address] [address] Care Coordination Specialist Care Management 09/29/23 11/13/23 documented as of this encounter
--- OUTSIDE RECORDS SUMMARY | 2024-09-05 16:12 | XMS_ITS | Clinical Summary ---
Author Organization [facility] Address [address] [place] [address] Care Team Providers Care Resolution Expert Name Role Phone Unavailable Primary Care Provider [...] Screening with HPV 09/15/1991 Mammogram Screening 2001 Pneumococcal Vaccine: 50+ Ye ars (1 of 1 - PCV) 09/15/2011 Zoster Vaccines (1 of 2) 09/15/2011 COVID-19 Vaccine (2023-2 5 season) 2023 RSV Immunization or 60+ Years (1 [...]
--- OUTSIDE RECORDS SUMMARY | 2024-09-05 16:12 | XMS_ITS | Referral Summary ---
Author Organization [facility] Address [address] [place] [address] Care Team Providers Care Renal Medicine Physician Name Role Phone Mercedes Collins MD Primary Care Provider + Andrzej Grimes OD Unavailable [phone] Ramsey Barbosa MD Unavailable Juana Leal RN Unavailable [phone] Encounters Date Type Department Care Team Description 08/24/2024 9:40 AM CDT Office Visit [facility] Gastroenterology [address] [facility] 12th [place] [address] [place] [phone] Jovani Almaguer MD Abdominal pain; Bloating 07/27/2024 12:30 PM CDT Office Visit [facility] Ophthalmology [address] [facility] 6th Floor, [address] [facility] [place] [address] Daysi Deras, FABRICIO Bilateral chronic anterior uveitis (Primary Dx) 07/25/2024 1:00 PM CDT Infusion [facility] [address] [place] [address] High risk medication use (Primary Dx); Rheumatoid arthritis involving multiple sites with positive rheumatoid factor (HCC) 07/15/2024 10:30 AM CDT Office Visit [facility] Rheumatology [facility] [facility] 5th [place] [address] [place] [address] Jeremi López MD PhD Rheumatoid arthritis involving multiple sites with positive rheumatoid factor (HCC) (Primary Dx); High risk medication use; Bilateral chronic anterior uveitis; Erythema nodosum; Current chronic use of systemic steroids; Interstitial lung disease (HCC) 06/29/[address] [facility] Rheumatology [address] [facility] Medical Office Building 2 [address] [place] [address] Bonnie Neri RMA 06/24/2024 11:00 AM CDT Office Visit [facility] Ophthalmology [address] [facility] 6th Floor, [address] [facility] [place] [address] Dev Gonzales, OD Bilateral chronic anterior uveitis (Primary Dx); Age-related cataract of both eyes 06/23/[address] [facility] Infusion Therapy [address] [facility] 5th [place] [address] [place] [address] Nesha Carrasco, ABHILASH Med Management 06/23/[address] [facility] Ophthalmology [address] [place] [address] Jennifer Mar, FABRICIO Scheduling Appointments 06/23/2024 2:00 PM CDT Infusion [facility] [address] [facility] [address] [place] [address] High risk medication use (Primary Dx); Rheumatoid arthritis involving multiple sites with positive rheumatoid factor (HCC) from Last 3 Months Allergies Active Allergy Reactions Criticality Noted Date Comments Ciprofloxacin Rash,Unknown,Diarrh ea,Urticaria High 09/10/2009 Leflunomide Unknown High 12/11/2015 Levofloxacin Other (See comments),Unknown Low 02/19/2009 Ruptured ligaments Lisinopril Other (See comments) Low 04/14/2024 Unsure of reaction, states was taken off for either diarrhea or swelling Simvastatin Other (See comments) Low 01/25/2016 Bone pain Bone pain Bcopovl-Qld-Ybm Reductase Inhibitors Muscle pain,Unknown Medium 05/18/2014 Medications blood glucose diagnostic strip 1 each 018 Active busPIRone (BUSPAR) 5 mg tabletIndications:G eneralized Anxiety Disorder 1 tablet (5 mg total) as needed Active calcium carb/vit D3/minerals (CALCIUM-VITAMIN D ORAL) Take 600 mg by mouth daily Active HYDROcodone-acetami nophen (NORCO) 5-325 mg per tabletIndications:P ain as needed 0 Active levothyroxine (SYNTHROID, LEVOTHROID) 88 mcg tablet [...] TOES. 022 Active Gemtesa 75 mg tablet 023 Active Stiolto Respimat 2.5-2.5 mcg/actuation inhaler as [...] s/s Assessment & Plan (04/19/2024 1:31 PM SENIOR TECHNICAL SUPPORT ENGINEER): No active inflammation, call if experiencing flare Assessment & Plan (04/17/2023 10:29 AM SENIOR TECHNICAL SUPPORT ENGINEER): Quiet both eyes (OU), RTC if experiencing flare Assessment & Plan (04/18/2022 12:13 PM SENIOR TECHNICAL SUPPORT ENGINEER): No sign of inflammation or sequelae from uveitis PLAN observe Diabetes mellitus type 2 without retinopathy 04/2022 Assessment & Plan (04/19/2024 1:31 PM SENIOR TECHNICAL SUPPORT ENGINEER): Pt ed. Stressed BG control (HbA1C<7) to reduce the risk for diabetic ocular complications. Lab Results Component Value Date HGBA1C 5.8 (H) 06/01/2015 Assessment & Plan (04/17/2023 10:29 AM SENIOR TECHNICAL SUPPORT ENGINEER): No retinopathy both eyes (OU). Pt ed. Stressed BG control (HbA1C<7) to reduce the risk for diabetic ocular complications. Lab Results Component Value Date HGBA1C 5.8 (H) 06/01/2015 Osteopenia 02/22/2022 Esophageal reflux 12/10/2021 Age-related cataract of both eyes 04/15/2021 Assessment & Plan (06/24/2024 11:37 AM CDT): ADL being met / NVS, monitor. Excellent BCVA with habitual SRx Assessment & Plan (04/19/2024 1:31 PM SENIOR TECHNICAL SUPPORT ENGINEER): Not v/s, monitor Assessment & Plan (05/06/2023 9:14 AM CDT): Stable best-corrected visual acuity (BVA), monitor Release updated glasses Rx Assessment & Plan (04/15/2021 11:03 AM SENIOR TECHNICAL SUPPORT ENGINEER): She is not bothered, observe Right rotator cuff tear arthropathy 11/24/2020 Controlled substance agreement signed 11/20/2020 Erythema nodosum 09/03/2020 Current chronic use of systemic steroids 021 Chronic diastolic heart failure 09/02/2020 Overview (05/30/2021): TTE 07/18/20 with normal LVEF, evidence of diastolic dysfunction, no valvular abnormalities LHC 2013 without significant disease Negative HANNA November 2020 proBNP = 10 in August 2020 History of uveitis 09/02/2020 Assessment & Plan (04/15/2021 11:02 AM SENIOR TECHNICAL SUPPORT ENGINEER): She has no active inflammation today. Follow [...] on file Legal Sex Female 7:32 PM SENIOR TECHNICAL SUPPORT ENGINEER Gender Identity Not on file Sexual Orientation [...] 08/24/2024 10:05 AM CDT Plan of Treatment Not on file Procedures [...] ANTIBODY Routine Gen Lab 01/23/2017 1:16 PM SENIOR TECHNICAL SUPPORT ENGINEER SCREENING MAMMOGRAM Routine 10/19/2012 1 2:46 PM CDT SERUM LIPID PANEL Routine 10/19/2012 12: 05 PM CDT from Last 3 Months or Most Recently Relevant to Health Maintenance Results * TB test, quantiferon gold (07/16/2024 10:09 AM CDT) [facility] QuantiFERON Incubation Incubation performed. [facility] - 01 [...] - 07/19/2024 10:07 PM CDT Performed at: [address] [place] [id number] Renal Nurse: Jose Daley PhD, Phone: [phone] us Intelly Clive López MD PhD LAB BLOOD ORDERABLE S Final Result [facility] - 01 * (ABNORMAL) Erythrocyte sedimentation rate (07/16/2024 10:09 AM CDT) Erythrocyte sedimentation rate 65(H) 0 - 40 mm/hr [facility] - 01 Blood 07/16/2024 10:0 9 AM CDT 07/16/2024 Narrative [facility] - 07/17/2024 7:08 AM CDT Performed at: [address] [place] [id number] Renal Nurse: Jose Daley PhD, Phone: [phone] Jeremi López MD PhD LAB BLOOD ORDERABLE S Final Result [facility] * (ABNORMAL) CBC without differential (07/16/2024 10:09 AM CDT) WBC 9.9 3.4 - 10.8 x10E3/uL [facility] [...] - 07/17/2024 7:08 AM CDT Performed at: [address] [place] [address] [id number] Renal Nurse: Jose Daley PhD, Phone: [phone] Jeremi López MD PhD LAB BLOOD ORDERABLE S Final Result [facility] - * CRP (acute phase) (07/16/2024 10:09 AM CDT) [facility] CRP 6 0 - 10 mg/L [facility] - 01 Blood 07/16/2024 10:0 9 AM CDT 07/16/2024 Narrative [facility] - 07/17/2024 9:09 AM CDT Performed at: 01 - [address] [id number] Renal Nurse: Jose Daley PhD, Phone: [phone] [facility] Clive López MD PhD LAB BLOOD ORDERABLE S Final Result Performing Organization Address City/[facility]/ZIP Co de Phone Number [facility] * (ABNORMAL) Comprehensive metabolic panel (07/16/2024 10:09 AM CDT) Pathologist [facility] Glucose 132(H) 70 - 99 mg/dL [facility] [...] - 07/17/2024 7:08 AM CDT Performed at: - [address] [id number] Renal Nurse: Jose Daley PhD, Phone: [phone] us Jeremi López MD PhD LAB BLOOD ORDERABLE S Final Result Performing Organization Address City/[facility]/ZIP Co de Phone Number [facility] - * Hepatitis C antibody (01/23/2017 1:16 PM SENIOR TECHNICAL SUPPORT ENGINEER) [facility] Hep C Ab Nonreactive Nonreactive [facility] Comment: Interpretive Data Positive and greyzone results should be confirmed by a molecular method. If positive or greyzone, a second separately collected sample should be submitted for Hepatitis C Virus RNA. Detection and Quantitation by Real-Time Reverse Oncology Rep Specialist-PCR.Current Interpretive data was last revised on 2016. Blood specimen (specimen) 01/23/2017 1:16 PM SENIOR TECHNICAL SUPPORT ENGINEER 01/23/2017 4:49 PM SENIOR TECHNICAL SUPPORT ENGINEER Narrative [facility] - 01/24/2017 9:19 AM SENIOR TECHNICAL SUPPORT ENGINEER us Rocio Ellis MD LAB MICROBIOLOGY - GENERAL OR DERABLES Edited Result - Final Performing Organization Address City/[facility]/ZIP Co de Phone Number [facility] Department [place] [address] * Screening Mammogram (10/19/2012 12:46 PM CDT) Anatomical Region Laterality Modality Breast N/A Mammography 10/19/2012 12:4 6 PM CDT Narrative 10/20/2012 1:30 PM CDT ANGELICA BYNUM M.D. FINAL REPORT ACC# Date Time Exam [id number] Oct 19, 2012 12:46:00 [facility] [address] Screening Mamm Bilat Technologist(s): Dilia Gregg; ; EXAMINATION: Mammogram Findings: A Full-Field Digital Screening Mammogram was performed. Views obtained: bilateral craniocaudal; bilateral mediolateral oblique. Computer Aided Detection was performed with [employer] mon.kiova 1.3 version 9.3. The present examination has been compared to prior imaging studies performed at [facility] on 10/06/2011, 03/05/2010 and 06/23/2008. The [...] M.D. FINAL REPORT ACC# Date Time Exam [id number] Oct 19, 2012 12:46:00 [facility] [address] Screening Mamm Bilat Technologist(s): Dilia Gregg; ; EXAMINATION: Mammogram Findings: A Full-Field Digital Screening Mammogram was performed. Views obtained: bilateral craniocaudal; bilateral mediolateral oblique. Computer Aided Detection was performed with [employer] 1.3 version 9.3. The present examination has been compared to prior imaging studies performed at [facility] on 10/06/2011, 03/05/2010 and 06/23/2008. The [...] Recently Relevant to Health Maintenance [place] [address] T MEDICARE FOR [facility] [place] [address] MEDICARE [facility] Address: [address] [address] [place] [address] [employer] OPEN ACCESS [facility] [address] [place] [address] [place] [address] [facility] MEDICARE [facility] [place] [address] Care Teams Renal Medicine Physician Relationship Specialty Start Date End Date Mercedes Collins MD [address] [facility] [address] [place] [address] PCP - General 06/25/17 Andrzej Grimes, OD [address] [place] [address] Referring Physician Ophthalmology 04/18/20 Ramsey Barbosa MD [address] [place] [address] Family Educator Transplant 05/30/21 Juana Leal, RN [address] [facility] [address] [place], [place] [id number] Heart Failure Coordinator Organ Assembler 05/30/21
--- OUTSIDE RECORDS SUMMARY | 2024-09-05 16:13 | XMS_ITS | Encounter Summary ---
Author Organization [facility] Address [address] [place] [address] Care Team Providers Care Private Security Guard Name Role Phone Chucky Menendez MD Unavailable [phone] Nathalie Guzman MD, Wade Lopes Unavailable [phone] Danielle Reina MD Unavailable [phone] Mercedes Collins MD Primary Care Provider [phone] Ramsey Barbosa MD Unavailable Mercedes Collins MD Unavailable [phone] Reason for Visit * Reason Onset Date Comments WOUND INFECTION 09/05/2024 Pain 09/05/2024 Encounter Details Date Type Department Care Team (Late st Contact Info) Description 09/05/2024 Telephone [facility] Medical [facility] - Internal Medicine [address] [facility] [address] [place] [address] Mercedes Collins MD [address] [place] [address] [place] [address] WOUND INFECTION; Pain Social History Tobacco Use Types Packs/Day Years [...] on file 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 Answer Date of Assessment Author No 07/16/2020 12:15 PM CDT Vipin Ram RN documented as of this encounter Mental Status * Does person have difficulty concentrating/remembering/making decisions? Answer Entry Date Author No 07/16/2020 12:15 PM CDT Vipin Ram RN documented in this encounter Miscellaneous Notes * Telephone Encounter - Mercedes Collins MD - 09/05/2024 3:50 PM CDT Noted and agree with the ED. The wounds on her left lower extremity looked extremely angry at her office visit last week. Mercedes Collins MD 09/05/2024 3:50 PM * Telephone Encounter - Lisa Lundberg RN - 09/05/2024 3:30 PM CDT Last OV: 09/01/2024 Next OV: 10/06/2024 Wound clinic cannot see patient until 09/14/24 Legs feel like they are on fire. Wounds spreading and per son one busted open and is spreading. Pain is extreme especially when standing. Does not think she has a feer. Son also stated he Googled Chat GPT picture of her wounds and cautioned of sepsis. Advised for patient to go to ED, Wound spreading, one busted open and bleeding and pain is extreme. Thank you, Lisa /Triage Nurse documented in this encounter Plan of Treatment Upcoming Encounters Date Type Department Care Team (Late st Contact Info) Description 2024 8:15 AM CDT Appointment Wound Care at [facility] [address] [place] [address] Todd Wheeler MD [address] [place] [phone] 10/06/2024 11:40 AM CDT Office Visit [facility] Medical [facility] - Internal Medicine [address] [place] [address] Mercedes Collins MD [address] [place] [phone] 12/01/2024 11:45 AM CDT Office Visit [facility] - DELI/BAKERY ASSOCIATE [address] [place] [phone] Peterson Nance MD [address] [place] [phone] documented as of this encounter Visit Diagnoses Not on filedocumented in this encounter Care Teams Private Security Guard Relationship Specialty Start Date End Date Mercedes Collins MD [address] [place] [address] PCP - General Internal Medicine 05/17/19 Mercedes Collins MD [address] [place] [address] 400 [place] [phone] PCP - [facility] 02/16/23 Chucky Menendez MD [address] [place] [address] 500 [place] [address] Dictating Machine Transcriber Pulmonary Disease 09/20/15 Wade Zelaya Jr., MD [address] [place] [address] Rheumatology 12/01/16 [place] [address] [place] [phone] Orthopedic Surgery 12/01/16 Ramsey Barbosa MD [address] [address] Internal Medicine 10/29/22 documented as of this encounter
--- OUTSIDE RECORDS SUMMARY | 2024-09-05 16:13 | XMS_ITS | Encounter Summary ---
Author Organization [facility] Address [address] [place] [address] Care Team Providers Care Grain Grader Name Role Phone Chucky Menendez MD Unavailable Nathalie Guzman MD, Wade Lopes Unavailable [phone] Danielle Reina MD Unavailable [phone] Mercedes Collins MD Primary Care Provider Ramsey Barbosa MD Unavailable [phone] Mercedes Collins MD Unavailable [phone] Encounter Details Date Type Department Care Team (Late st Contact Info) Description 09/01/2024 Results Follow-Up [facility] Group - Internal Medicine [address] [facility] [address] [place] [address] Mercedes Collins MD [address] [place] [phone] Social History Tobacco Use Types Packs/Day Years [...] on file 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 Answer Entry Date Author No 07/16/2020 12:15 PM Vipin Cornell RN documented in this encounter Plan of Treatment Upcoming Encounters Date Type Department Care Team (Late st Contact Info) Description 2024 8:15 AM CDT Appointment Wound Care at [facility] [address] [place] [address] Todd Wheeler MD [address] [place] [phone] 10/06/2024 11:40 AM CDT Office Visit [facility] Medical [facility] - Internal Medicine [address] [facility] [address] [place] [phone] Mercedes Collins MD [address] [place] [address], [place] [phone] 12/01/2024 11:45 AM CDT [facility] EXECUTIVE TEAM LEADER [address] [facility] 400 [place] [phone] Peterson Nance MD [address] [facility] 400 [place] [address] documented as of this encounter Visit Diagnoses Not on filedocumented in this encounter Care Teams Grain Grader Relationship Specialty Start Date End Date Mercedes Collins MD [address] [facility] [address] [place] [phone] PCP - General Internal Medicine 05/17/19 Mercedes Collins MD [address] [place] [phone] PCP - Attributed-[facility] 02/16/23 Chucky Menendez MD [address] [place] [address] 500 [place] [address] Care Management Coordinator Pulmonary Disease 09/20/15 Wade Zelaya Jr., MD [address] [place] [address] 500 [place] [address] Rheumatology 12/01/16 Danielle Reina MD [address] [place] [phone] Orthopedic Surgery 12/01/16 Ramsey Barbosa MD [address] [address] Internal Medicine 10/29/22 documented as of this encounter
--- OUTSIDE RECORDS SUMMARY | 2024-09-05 16:13 | XMS_ITS | Encounter Summary ---
Author Organization [facility] Address [address] [place] [address] Care Team Providers Care Diagram Clerk Name Role Phone Chucky Menendez MD Unavailable [phone] Nathalie Guzman MD, Wade Lopes Unavailable [phone] Danielle Reina MD Unavailable [phone] Mercedes Collins MD Primary Care Provider [phone] Ramsey Barbosa MD Unavailable [phone] Mercedes Collins MD Unavailable [phone] Encounter Details Date Type Department Care Team (Late st Contact Info) Description 07/20/2024 Results Follow-Up [facility] Medical Group - Internal Medicine [address] [facility] [address] [place] [phone] Mercedes Collins MD [address] [place] [phone] Social History Tobacco Use Types Packs/Day [...] on file 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 Gender Identity Not on file Sexual [...] 8:15 AM CDT Appointment Wound Care at [facility] [address] [place] [address] Todd Wheeler MD [address] [place] [phone] 10/06/2024 11:40 AM CDT Office Visit [facility] Medical [facility] - Internal Medicine [address] [facility] [address] [place] [phone] Mercedes Collins MD [address] [place] [address], [place] [phone] 12/01/2024 11:45 AM CDT [facility] RAILWAY YARD ASSISTANT [address] [facility] 400 [place] [phone] Peterson Nance MD [address] [facility] 400 [place] [address] documented as of this encounter Visit Diagnoses Not on filedocumented in this encounter Care Teams Diagram Clerk Relationship Specialty Start Date End Date Mercedes Collins MD [address] [facility] [address] [place] [phone] PCP - General Internal Medicine 05/17/19 Mercedes Collins MD [address] [place] [phone] PCP - Attributed-[facility] 02/16/23 Chucky Menendez MD [address] [place] [address] 500 [place] [address] Rn Circulating Pulmonary Disease 09/20/15 Wade Zelaya Jr., MD [address] [place] [address] 500 [place] [address] Rheumatology 12/01/16 Danielle Reina MD [address] [place] [phone] Orthopedic Surgery 12/01/16 Ramsey Barbosa MD [address] [address] Internal Medicine 10/29/22 documented as of this encounter
--- NOTE | 2024-09-05 16:47 | ECG_ITS ---
Test Date: 2024-09-05 16:51:49 Measurements Intervals [place] Rate: 91 P: 25 OK: 136 QRS: -20 QRSD: 90 T: -7 QT: 342 QTc: 421 Interpretive Statements SINUS RHYTHM Compared to ECG 04/24/2024 19:52:47 No significant changes Electronically Signed On 09-06-2024 16:32:38 CDT by Tal Barros M.D.
[2024-09-05 17:11] LABS: Hematocrit 39.9 % (37.0-47.0); Hemoglobin 12.7 g/dL (12.0-15.0); Immature Granulocyte Percent A 1.7 % (0-0.5); Lymphocytes Absolute Auto 3.09 K/mm3 (0.9-3.2); Mean Corpuscular HGB Conc 31.8 g/dl (32-36); Mean Corpuscular Hemoglobin 27.4 pg (26-34); Mean Corpuscular Volume 86.0 fl (80-100); Nucleated Red Blood Cells Absolute Auto 0.000 K/mm3 (0.0-0.012); Nucleated Red Blood Cells Perc 0.0 % (0.0-0.2); Platelet Count Result 382 k/mm3 (150-375); Red Blood Count 4.64 M/mm3 (4.2-5.4); White Blood Count 11.7 K/mm3 (4.5-10.0)
--- OUTSIDE RECORDS SUMMARY | 2024-09-05 17:21 | XMS_ITS | Encounter Summary ---
Author Organization [facility] Address [address] [facility] [place] [address] Care Team Providers Care Surveillance Inspector Name Role Phone Chucky Menendez MD Unavailable [phone] Nathalie Guzman MD, Wade Lopes Unavailable [phone] Danielle Reina MD Unavailable [phone] Mercedes Collins MD Primary Care Provider Ramsey Barbosa MD Unavailable Mercedes Collins MD Unavailable [phone] Reason for Visit * Reason Onset Date Comments Update 04/14/2024 Encounter Details Date Type Department Care Team (Late st Contact Info) Description 04/14/2024 Telephone [facility] Medical [facility] - Internal Medicine [address] [facility] [address] [place] [address] Mercedes Collins MD [address] [place] [address] Update Social History Tobacco Use Types [...] on file 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 Patient was taken to [facility] to be examined. Expected Response from the Clinic? ( ex. Call back, etc..) [phone] Did you notify caller it would take 24-48 hours for the office to get back to them? YES WORKER documented in this encounter Plan of Treatment Upcoming Encounters Date Type Department Care Team (Late st Contact Info) Description 2024 8:15 AM CDT Appointment [facility] [address] [place] [address] Todd Wheeler MD [address] [place] [phone] 10/06/2024 11:40 AM CDT Office Visit [facility] Medical [facility] - Internal Medicine [address] [place] [address] 400 [place] [address] Mercedes Collins MD [address] [place] [address] 12/01/2024 11:45 AM CDT Office Visit [facility] - ALTERATION SPECIALIST [address] [place] [phone] Peterson Nance MD [address] [place] [phone] documented as of this encounter Visit Diagnoses Not on filedocumented in this encounter Care Teams Surveillance Inspector Relationship Specialty Start Date End Date Mercedes Collins MD [address] [place], [place] [address] [address] [place] [address] PCP - General Internal Medicine 05/17/19 Mercedes Collins MD [address] [place] [address] 400 [place] [address] PCP - Attributed-[place] 02/16/23 Chucky Menendez MD [address] [place] [address] 500 [place] [address] Apparatus Operator Pulmonary Disease 09/20/15 [place] [address] [place] [address] Rheumatology 12/01/16 Danielle Reina MD [address] [place] [phone] Orthopedic Surgery 12/01/16 Ramsey Barbosa MD [address] [address] Internal Medicine 10/29/22 documented as of this encounter
--- OUTSIDE RECORDS SUMMARY | 2024-09-05 17:21 | XMS_ITS | Clinical Summary ---
Author Organization [facility] Address [address] [place] [address] Care Team Providers Care Jack Prizer Name Role Phone Unavailable Primary Care Provider [...]
--- OUTSIDE RECORDS SUMMARY | 2024-09-05 17:21 | XMS_ITS | Referral Summary ---
Author Organization [facility] Address [address] [place] [address] Care Team Providers Care Furniture Removalist Name Role Phone Mercedes Collins MD Primary Care Provider + Andrzej Grimes OD Unavailable [phone] Ramsey Barbosa MD Unavailable Juana Leal RN Unavailable Encounters Date Type Department Care Team Description 08/24/2024 9:40 AM CDT Office Visit [facility] Gastroenterology [address] [facility] 12th [place] [address] [place] [phone] Jovani Almaguer MD Abdominal pain; Bloating 07/27/2024 12:30 PM CDT Office Visit [facility] Ophthalmology [address] [facility] 6th Floor, [address] [facility] [place] [address] Daysi Deras, FABRICIO Bilateral chronic anterior uveitis (Primary Dx) 07/25/2024 1:00 PM CDT Infusion [facility] [address] [place] [address] High risk medication use (Primary Dx); Rheumatoid arthritis involving multiple sites with positive rheumatoid factor (HCC) 07/15/2024 10:30 AM CDT Office Visit [facility] Rheumatology [facility] 5th [place] [address] [place] [phone] Jeremi López MD PhD Rheumatoid arthritis involving multiple sites with positive rheumatoid factor (HCC) (Primary Dx); High risk medication use; Bilateral chronic anterior uveitis; Erythema nodosum; Current chronic use of systemic steroids; Interstitial lung disease (HCC) 06/29/2024 Telephone [facility] Rheumatology [address] [facility] Medical Office Building 2 [address] [place] [address] Bonnie Neri RMA 06/24/2024 11:00 AM CDT Office Visit [facility] Ophthalmology [address] [facility] 6th Floor, [address] [facility] [place] [address] Dev Gonzales, OD Bilateral chronic anterior uveitis (Primary Dx); Age-related cataract of both eyes 06/23/2024 Telephone [facility] Infusion Therapy [address] [facility] 5th [place] [address] [place] [address] Nesha Carrasco, ABHILASH Med Management 06/23/2024 Telephone [facility] Ophthalmology [address] [place] [address] Jennifer Mar, FABRICIO Scheduling Appointments 06/23/2024 2:00 PM CDT Infusion [facility] [address] [facility] [address] [place] [phone] High risk medication use (Primary Dx); Rheumatoid [...] comments) Low 01/25/2016 Bone pain Bone pain Wuqoely-Erg-Gqx Reductase Inhibitors Muscle pain,Unknown Medium 05/18/2014 Medications [...] s/s Assessment & Plan (04/19/2024 1:31 PM CASH REGISTER REPAIRER): No active inflammation, call if experiencing flare Assessment & Plan (04/17/2023 10:29 AM CASH REGISTER REPAIRER): Quiet both eyes (OU), RTC if experiencing flare Assessment & Plan (04/18/2022 12:13 PM CASH REGISTER REPAIRER): No sign of inflammation or sequelae from uveitis PLAN observe Diabetes mellitus type 2 without retinopathy 04/2022 Assessment & Plan (04/19/2024 1:31 PM CASH REGISTER REPAIRER): Pt ed. Stressed BG control (HbA1C<7) to reduce the risk for diabetic ocular complications. Lab Results Component Value Date HGBA1C 5.8 (H) 06/01/2015 Assessment & Plan (04/17/2023 10:29 AM CASH REGISTER REPAIRER): No retinopathy both eyes (OU). Pt ed. Stressed BG control (HbA1C<7) to reduce the risk for diabetic ocular complications. Lab Results Component Value Date HGBA1C 5.8 (H) 06/01/2015 Osteopenia 02/22/2022 Esophageal reflux 12/10/2021 Age-related cataract of both eyes 04/15/2021 Assessment & Plan (06/24/2024 11:37 AM CDT): ADL being met / NVS, monitor. Excellent BCVA with habitual SRx Assessment & Plan (04/19/2024 1:31 PM CASH REGISTER REPAIRER): Not v/s, monitor Assessment & Plan (05/06/2023 9:14 AM CDT): Stable best-corrected visual acuity (BVA), monitor Release updated glasses Rx Assessment & Plan (04/15/2021 11:03 AM CASH REGISTER REPAIRER): She is not bothered, observe Right rotator [...] 09/02/2020 Assessment & Plan (04/15/2021 11:02 AM CASH REGISTER REPAIRER): She has no active inflammation today. Follow [...] on file Legal Sex Female 7:32 PM CASH REGISTER REPAIRER Gender Identity Not on file Sexual Orientation [...] ANTIBODY Routine Gen Lab 01/23/2017 1:16 PM CASH REGISTER REPAIRER SCREENING MAMMOGRAM Routine 10/19/2012 1 2:46 PM CDT SERUM LIPID PANEL Routine 10/19/2012 12: 05 PM CDT from Last 3 Months or Most Recently Relevant to Health Maintenance Results * TB test, quantiferon gold (07/16/2024 10:09 AM CDT) [facility] QuantiFERON Incubation Incubation performed. [facility] - 01 [...] - 07/19/2024 10:07 PM CDT Performed at: [address] [place] [id number] Textile Artist: Jose Daley PhD, Phone: [phone] us Intelly Clive López MD PhD LAB BLOOD ORDERABLE S Final Result [facility] - 01 * (ABNORMAL) Erythrocyte sedimentation rate (07/16/2024 10:09 AM CDT) Erythrocyte sedimentation rate 65(H) 0 - 40 mm/hr [facility] - 01 Blood 07/16/2024 10:0 9 AM CDT 07/16/2024 Narrative [facility] - 07/17/2024 7:08 AM CDT Performed at: [address] [place] [id number] Textile Artist: Jose Daley PhD, Phone: [phone] Jeremi López MD PhD LAB BLOOD ORDERABLE [...] - 07/17/2024 7:08 AM CDT Performed at: [address] [place] [id number] Textile Artist: Jose Daley PhD, Phone: [phone] Jeremi López MD PhD LAB BLOOD ORDERABLE S Final Result [facility] - * CRP (acute phase) (07/16/2024 10:09 AM CDT) [facility] CRP 6 0 - 10 mg/L [facility] - 01 Blood 07/16/2024 10:0 9 AM CDT 07/16/2024 Narrative [facility] - 07/17/2024 9:09 AM CDT Performed at: 01 - [address] [id number] Textile Artist: Jose Daley PhD, Phone: [phone] [facility] Clive López MD PhD LAB BLOOD ORDERABLE S Final Result Performing Organization Address City/[facility]/ZIP Co de Phone Number [facility] * (ABNORMAL) Comprehensive metabolic panel (07/16/2024 10:09 AM CDT) Pathologist [facility] Glucose 132(H) 70 - 99 mg/dL [facility] [...] 07/17/2024 7:08 AM CDT Performed at: - [address] [id number] Textile Artist: Jose Daley PhD, Phone: [phone] us Jeremi López MD PhD LAB BLOOD ORDERABLE S Final Result Performing Organization Address City/[facility]/ZIP Co de Phone Number [facility] - * Hepatitis C antibody (01/23/2017 1:16 PM CASH REGISTER REPAIRER) [facility] Hep C Ab Nonreactive Nonreactive [facility] Comment: Interpretive Data Positive and greyzone results should be confirmed by a molecular method. If positive or greyzone, a second separately collected sample should be submitted for Hepatitis C Virus RNA. Detection and Quantitation by Real-Time Reverse Mushroom Spawn Maker-PCR.Current Interpretive data was last revised on 2016. Blood specimen (specimen) 01/23/2017 1:16 PM CASH REGISTER REPAIRER 01/23/2017 4:49 PM CASH REGISTER REPAIRER Narrative [facility] - 01/24/2017 9:19 AM CASH REGISTER REPAIRER us Rocio Ellis MD LAB MICROBIOLOGY - GENERAL OR DERABLES Edited Result - Final Performing Organization Address City/[facility]/ZIP Co de Phone Number [facility] One [facility] [place] [address] * Screening Mammogram (10/19/2012 12:46 PM CDT) Anatomical Region Laterality Modality Breast N/A Mammography 10/19/2012 12:4 6 PM CDT Narrative 10/20/2012 1:30 PM CDT ANGELICA BYNUM M.D. FINAL REPORT ACC# Date Time Exam [id number] Oct 19, 2012 12:46:00 [facility] [place] [address] Screening Mamm Bilat Technologist(s): Dilia Gregg; ; EXAMINATION: Mammogram Findings: A Full-Field Digital Screening Mammogram was performed. Views obtained: bilateral craniocaudal; bilateral mediolateral oblique. Computer Aided Detection was performed with Advanced Oncotherapy, AXSionicsova 1.3 version 9.3. The present examination has been compared to prior imaging studies performed at [facility] on 10/06/2011, 03/05/2010 and 06/23/2008. The [...] M.D. FINAL REPORT ACC# Date Time Exam [id number] Oct 19, 2012 12:46:00 [facility] [place] [address] Screening Mamm Bilat Technologist(s): Dilia Gregg; ; EXAMINATION: Mammogram Findings: A Full-Field Digital Screening Mammogram was performed. Views obtained: bilateral craniocaudal; bilateral mediolateral oblique. Computer Aided Detection was performed with Advanced Oncotherapy, AXSionicsova 1.3 version 9.3. The present examination has been compared to prior imaging studies performed at [facility] on 10/06/2011, 03/05/2010 and 06/23/2008. The [...] Recently Relevant to Health Maintenance [place] [address] T MEDICARE FOR [facility] [place] [address] MEDICARE HEALTHNaturVention OPEN ACCESS [facility] [address] [place] [address] [place] [address] [facility] MEDICARE [facility] [place] [address] Care Teams Furniture Removalist Relationship Specialty Start Date End Date Mercedes Collins MD [address] [facility] [address] [place] [address] PCP - General 06/25/17 Andrzej Grimes, OD [address] [place] [address] Referring Physician Ophthalmology 04/18/20 Ramsey Barbosa MD [address] [place] [address] Hotel Front Desk Agent Transplant 05/30/21 Juana Leal, RN [address] [facility] [address] [place], [place] [id number] Heart Failure Coordinator Strand Galvanizer 05/30/21
--- OUTSIDE RECORDS SUMMARY | 2024-09-05 17:21 | XMS_ITS | Encounter Summary ---
Author Organization [facility] Address [address] [facility] [address] [place] [address] Care Team Providers Care Linux Network Engineer Name Role Phone Marcos Banks MD Unavailable Chucky Menendez MD Unavailable Nathalie Guzman MD, Wade Lopes Unavailable [phone] Danielle Reina MD Unavailable [phone] Mercedes Collins MD Primary Care Provider Mercedes Collins MD Unavailable [phone] Carlota Hyman STRIKE OPERATIONS OFFICER-PHOTO LAB MANAGER Unavailable [phone] Mercedes Collins MD Unavailable [phone] Ladan Acosta RN Unavailable Ramsey Barbosa MD Unavailable [phone] Mercedes Collins MD Unavailable [phone] Stacey Michelle Unavailable Reason for Visit * Reason Onset Date Comments Pain Pelvic 12/17/2020 Encounter Details Date Type Department Care Team (Late st Contact Info) Description 12/17/2020 Telephone [facility] [address] [place] [address] Dominick Dodson MD [address] [facility] [address] [address] [place] [address] Pain Pelvic Social History Tobacco Use Types Packs/Day Years Used Date Smoking Tobacco: Former Smokeless Tobacco: Never Comments:Quit 30 years ago Alcohol Use Standard Drinks/Week Comments Not Currently 0 (1 standard drink = 0.6 oz pur e alcohol) Comments No Sex and Gender Information Value Date Recorded Sex Assigned at Not on file Legal Sex Female 6:43 AM FUNDING SPECIALIST Gender Identity Not on file Sexual Orientation [...] She agrees to 345pm appt tomorrow at [facility]'s office. Directions given over the phone, but will send mychart msg. * Telephone Encounter - Radha Burden - 12/17/2020 2:37 PM CDT Patient called in- having severe pelvic pain- Thursday was unbearable- today is pretty bad 10/26 especially when voiding- Was given samples and wonders if this is the cause- Please call [phone] documented in this encounter Plan of Treatment Upcoming Encounters Date Type Department Care Team (Late st Contact Info) Description 2024 8:15 AM CDT Appointment Wound Care at [facility] [address] [place] [address] Todd Wheeler MD [address] [place] [phone] 10/06/2024 11:40 AM CDT Office Visit [facility] Medical Group - Internal Medicine [address] [place] [address] [place] [phone] Mercedes Collins MD [address] [place] [address] 12/01/2024 11:45 AM CDT Office Visit [facility] - LEGAL BILLER [address] [place] [phone] Peterson Nance MD [address] [place] [address], [place] [address] documented as of this encounter Visit Diagnoses Not on filedocumented in this encounter Additional Health Concerns Infection Onset Date Last Indicated Resolved Time COVID-19 Under Investigation 01/21/2023 01/21/2023 01/21/2023 6:24 PM FUNDING SPECIALIST documented as of this encounter Care Teams Linux Network Engineer Relationship Specialty Start Date End Date Mercedes Collins MD [address] [place] [phone] PCP - General Internal Medicine 05/17/19 Mercedes Collins MD [address] [place] [phone] PCP - Attributed-MSSP 10/17/20 04/15/21 Carlota Hyman, STRIKE OPERATIONS OFFICER-PHOTO LAB MANAGER [address] [place] [address] PCP - Attributed-MSSP 04/16/21 06/15/21 Mercedes Collins MD [address] [place] [address] PCP - Attributed-MSSP 06/16/21 08/11/23 Mercedes Collins MD [address] [place] [address] PCP - Attributed-Coventry MA 02/16/23 Marcos Banks MD [address] [place] [address] Cardiology 09/29/13 10/28/22 Chucky Menendez MD [address] [facility] [address] [place] [address] Cupola Tender Pulmonary Disease 09/20/15 Wade Zelaya Jr., MD [address] [facility] [address] [place] [address] Rheumatology 12/01/16 Danielle Reina MD [address] [facility], [address] Orthopedic Surgery 12/01/16 Ladan Acosta, AHBILASH Waste RecyclerMid Level Game Designer 07/23/22 08/14/22 Ramsey Barbosa MD [address] [address] Internal Medicine 10/29/22 Stacey Michelle [address] [address] Care Coordination Specialist Care Management 09/29/23 11/13/23 documented as of this encounter
--- OUTSIDE RECORDS SUMMARY | 2024-09-05 17:21 | XMS_ITS | Encounter Summary ---
Author Organization [facility] Address [address] [facility] [place] [address] Care Team Providers Care Fabric Stretcher Name Role Phone José Ashton MD Primary Care Provider [phone] Marcos Banks MD Unavailable [phone] Krish Woodard MD Unavailable Unavailable Chucky Menendez MD Unavailable [phone] Agata Castro MD Primary Care Provider [phone] Agata Castro MD Unavailable [phone] Mercedes Collins MD Primary Care Provider [phone] Nathalie Guzman MD, Richard D Unavailable [phone] Danielle Reina MD Unavailable + [phone] Mercedes Collins MD Unavailable [phone] Mercedes Collins MD Primary Care Provider [phone] Carlota Hyman LATHE MECHANIC-METROPOLITAN EDITOR Unavailable [phone] Mercedes Collins MD Unavailable [phone] Carlota Hyman LATHE MECHANIC-METROPOLITAN EDITOR Unavailable [phone] Mercedes Collins MD Unavailable [phone] Ladan Acosta RN Unavailable Ramsey Barbosa MD Unavailable Mercedes Collins MD Unavailable [phone] Stacey Michelle Unavailable Krish Woodard MD Unavailable Unavailable Encounter Details Date Type Department Care Team (Late Contact Info) Description 02/04/2013 [facility] Outpatient Visit EXTERNAL NON[facility] DEPT Marcos Banks MD [address] [facility] [address] [place] [address] Social History Tobacco Use Types Packs/Day Years Used Date Smoking Tobacco: Former Smokeless Tobacco: Former Comments:quit 22 yr's ago Alcohol Use Standard Drinks/Week Comments No 0 (1 standard drink = 0.6 oz pur e alcohol) Comments No Sex and Gender Information Value Date Recorded Sex Assigned at Not on file Legal Sex Female 6:43 AM INDUSTRIAL REHABILITATION CONSULTANT Gender Identity Not on file Sexual Orientation Not on file documented as of this encounter Plan of Treatment Upcoming Encounters Date Type Department Care Team (Late st Contact Info) Description 2024 8:15 AM CDT Appointment Wound Care at [facility] [address] [place] [address] Todd Wheeler MD [address] [place] [phone] 10/06/2024 11:40 AM CDT Office Visit [facility] Health Medical Group - Internal Medicine [address] [facility] [address] [place] [phone] Mercedes Collins MD [address] [place] [address] 400 [place] [address] 12/01/2024 11:45 AM CDT Office Visit [facility] - DEPARTMENT ADMINISTRATOR [address] [place] [address] [address] [place] [address] Peterson Nance MD [address] [facility] [address] [place] [address] documented as of this encounter Visit Diagnoses Not on filedocumented in this encounter Additional Health Concerns Infection Onset Date Last Indicated Resolved Time COVID-19 Under Investigation 06/18/2020 06/18/2020 06/19/2020 6:11 AM CDT COVID-19 Confirmed 06/18/2020 06/18/2020 4:33 AM CDT COVID-19 Under Investigation 07/15/2020 07/15/2020 07/15/2020 6:50 AM CDT COVID-19 Under Investigation 01/21/2023 01/21/2023 01/21/2023 6:24 PM INDUSTRIAL REHABILITATION CONSULTANT documented as of this encounter Care Teams Fabric Stretcher Relationship Specialty Start Date End Date José Ashton MD [address] [place] [address] PCP - General 09/11/10 03/27/13 Agata Castro MD [address] [place] [address] PCP - General Family Medicine 09/17/16 11/30/16 Mercedes Collins MD [address] [place] [address] PCP - General Internal Medicine 12/01/16 05/16/19 Mercedes Collins MD [address] [place] [phone] PCP - Attributed-MSSP 07/17/18 09/15/20 Mercedes Collins MD [address] [place] [phone] PCP - General Internal Medicine 05/17/19 Carlota Hyman, LATHE MECHANIC-METROPOLITAN EDITOR [address] [place] [address] PCP - Attributed-MSSP 09/16/20 10/16/20 Mercedes Collins MD [address] [place] [address] PCP - Attributed-MSSP 10/17/20 04/15/21 Carlota Hyman, LATHE MECHANIC-METROPOLITAN EDITOR [address] [place] [phone] PCP - Attributed-MSSP 04/16/21 06/15/21 Mercedes Collins MD [address] [place] [address] PCP - Attributed-MSSP 06/16/21 08/11/23 Mercedes Collins MD [address] [place] [address] PCP - Attributed-Coventry MA 02/16/23 Krish Woodard MD PCP - Attributed-MSSP 04/16/18 07/16/18 Marcos Banks MD [address] [place] [address] Cardiology 09/29/13 10/28/22 Krish Woodard MD [address] [place] [address] Pulmonary Disease 09/29/13 09/19/15 Chucky Menendez MD [address] [facility] 500 [place] [address] Rate Marker Pulmonary Disease 09/20/15 Agata Castro MD [address] [place] [address] 500 [place] [address] Referring Physician Family Medicine 09/17/16 11/09/18 Wade Zelaya Jr., MD [address] [place] [address] 400 [place] [phone] Rheumatology 12/01/16 Danielle Reina MD [address] [place] [phone] Orthopedic Surgery 12/01/16 Ladan Acosta, RN Mill RecorderUnit Trust Manager 07/23/22 08/14/22 Ramsey Barbosa MD [address] [address] Internal Medicine 10/29/22 Stacey Michelle [address] [place] [address] Care Coordination Specialist Care Management 09/29/23 11/13/23 documented as of this encounter
--- OUTSIDE RECORDS SUMMARY | 2024-09-05 17:21 | XMS_ITS | Clinical Summary ---
Author Organization [facility] [employer] Address [address] [place] [address] Care Team Providers Care Stone Sandblaster Name Role Phone Chucky Menendez MD Unavailable [phone] Nathalie Guzman MD, Wade Lopes Unavailable [phone] Danielle Reina MD Unavailable [phone] Mercedes Collins MD Primary Care Provider [phone] Ramsey Barbosa MD Unavailable [phone] Mercedes Collins MD Unavailable [phone] [facility],non-owned Affiliates and Associated Physician Practices is amultiple site organization consisting of ambulatory clinics and hospital sitesin [place], [place], [place] and [place]. This disclosure is being madepursuant to the Care Everywhere program and may not contain all information available regarding this patient. Last updated 17.[facility] Allergies Active Allergy Reactions Criticality Noted Date [...] 05/18/19 24 Active Blood Glucose Monitoring Suppl ([employer] Verio) w/Device KITIndications:Ty pe 2 diabetes mellitus with diabetic neuropathy, without long-term current use of insulin (HCC) Use 1 Each as directed 1 kit 05/21/19 24 Active ipratropium (Atrovent) 0.03 % nasal sprayIndications: Nasal congestion SPRAY 1-2 SPRAYS INTO EACH NOSTRIL 3 TIMES DAILY 30 mL 06/04/19 24 Active fluticasone propionate (Flonase) 50 MCG/ACT nasal spray [place] 1 (one) spray into each nostril 2 times daily 16 g 11 10/07/19 24 Active vibegron (Gemtesa) 75 MG tablet Take 1 (one) tablet by mouth once daily 90 tablet 3 11/26/19 24 Active nystatin (Mycostatin) 654479 UNIT/GM ointment Apply to vulva twice daily [...] without long-term current use of insulin ([facility]) USE 1 STRIP DIRECTED 50 strip 05/25/19 25 Active Lancets (ONETOUCH DELICA PLUS 33G EXTRA FINE LANCET)Indication s:Type 2 diabetes mellitus with diabetic neuropathy, without long-term current use of insulin ([facility]) USE 1 EACH ONCE DAILY 100 Each 5 07/29/19 25 Active HYDROcodone-aceta minophen (Leon) 5-325 MG tabletIndications :Rheumatoid arthritis involving multiple [...] Type Department Care Team Description 09/05/2024 Telephone [facility] Internal Medicine [address] [place] [address] [address] [place] [address] Mecredes Collins MD WOUND INFECTION; Pain 09/01/2024 10:15 AM CDT - 09/01/2024 11:59 PM CDT Hospital Encounter [facility] Imaging Services [address] [place] [address] [address] [place] [address] Mercedes Collins MD Discharge Disposition: Home or Self Care 09/01/2024 8:40 AM CDT Office Visit [facility] Internal Medicine [address] [place] [phone] Mercedes Collins MD Primary hypertension (Primary Dx); Chronic obstructive pulmonary disease, unspecified COPD type (HCC); Tachycardia, paroxysmal (HCC); Recurrent pulmonary embolism ([facility]); BIJAN (obstructive sleep apnea); Restrictive lung disease; Mixed hyperlipidemia; Postablative hypothyroidism; Type 2 diabetes mellitus with diabetic neuropathy, without long-term current use of insulin (HCC); Rheumatoid arthritis involving multiple sites with positive rheumatoid factor (HCC); 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[facility]); Chronic diastolic heart failure ([facility]); Screening mammogram, encounter for; Paresthesia; Ulcer of lower extremity with fat layer exposed, unspecified laterality (HCC); Ulcer of foot, limited to breakdown of skin, unspecified laterality (HCC); Cellulitis, unspecified cellulitis site 09/01/2024 Results Follow-Up [facility] Internal Medicine [address] [place] [address] [address] [place] [address] Mercedes Collins MD 08/31/2024 Refill [facility] Internal Medicine [address] [place] [address] [address] [place] [address] Mercedes Collins MD Refill Request 08/29/2024 Telephone [facility] Internal Medicine [address] [place] [phone] Mercedes Collins MD WOUND INFECTION 08/11/2024 Telephone [facility] Internal Medicine [address] [place] [phone] Merecdes Collins MD SKIN PROBLEM 08/06/2024 Refill [facility] Internal Medicine [address] [place] [phone] Mercedes Collins MD Refill Request 08/04/[address] [phone] Mercedes Collins MD MEDICATION REFILL 07/28/2024 Refill [facility] Internal [address] [phone] Mercedes Collins MD Refill Request 07/20/2024 Results Follow-Up [facility] Internal Medicine [address] [place] [phone] Mercedes Collins MD 06/22/2024 Refill [facility] Internal Medicine [address] [place] [phone] Mercedes Collins MD MEDICATION REFILL 06/07/2024 1:20 PM CDT Office Visit [facility] Internal Medicine [address] [place] [phone] Mercedes Collins MD Routine general medical examination at health care facility (Primary Dx); Type 2 diabetes mellitus with diabetic neuropathy, without long-term current use of insulin (HCC); Tachycardia, paroxysmal ([facility]); Primary hypertension; Chronic diastolic heart failure ([facility]); Restrictive lung disease; BIJAN (obstructive sleep apnea); Chronic obstructive pulmonary disease, unspecified COPD type ([facility]); Postablative hypothyroidism; Mixed hyperlipidemia; Rheumatoid arthritis involving [...] on file Legal Sex Female 6:43 AM 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 - Internal Medicine [address] [place] [address] [place] [phone] Mercedes Collins MD [address] [place] [phone] 12/01/2024 11:45 AM CDT Office Visit [facility] - EVENT SECURITY OFFICER [address] [place] [phone] Peterson Nance MD [address] [place] [address] Health Maintenance Due Date Last Done Comments [...] P24 AG PANEL Routine 02/24/2020 8:11 AM NAVAL AIRCREWMAN HELICOPTER Screening for HIV (human immunodeficiency virus) ENDOSCOPY, COLON, SCREENING Routine 01/25/2016 9:18 AM NAVAL AIRCREWMAN HELICOPTER HEPATITIS C ANTIBODY Routine 11/30/2012 12:54 PM [...] L5/S1. Report dictated by Anthony Louis MD (radiology orderly). ISteven MD have personally reviewed and interpreted this examination/study. > Interpreting Provider: Steven Posey MD on 09/01/2024 11:29 AM Narrative 09/01/2024 11:29 AM CDT PROCEDURE: XR LUMBAR SPINE 2 OR 3VW, DATE/TIME OF EXAM: 09/01/2024 10:29 AM, LOCATION [facility] INDICATION: R20.2: Paresthesia COMPARISON: CT abdomen and [...] 3VW, DATE/TIME OF EXAM: 0:29 AM, LOCATION [facility] INDICATION: R20.2: Paresthesia COMPARISON: CT abdomen and [...] L5/S1. Report dictated by Anthony Louis MD (radiology orderly). I, Steven Posey MD have personally reviewed [...] 9:10 AM CDT Performed at: 01 - [facility] [address] [place] [id number] Correctional Supervising Cook: Marce Og [facility], Phone: [phone] Specimen Comment: ToxAssure, [employer] FLEX or MAT drug testin Specimen Comment: -Technical component - Data analysis performed at Specimen Comment: [facility], [address] [place] [address], [place] Specimen Comment: [phone]. [phone] Correctional Supervising Cook Winston Solorio MD. us Mercedes Collins MD LAB - URINE CHEMISTRY ORDERABL ES Final Result [facility] INSURANCE BILL [address] [place] [address] * TSH+FREE T4+FREE T3 (07/13/2024 9:35 AM CDT) Pathologist [facility] TSH 3.320 0.450 - 4.500 uIU/mL [facility] INSURANCE BILL T3 Free 2.5 2.0 - 4.4 pg/mL [facility] INSURANCE BILL T4 Free 1.39 0.82 - 1.77 ng/dL [facility] INSURANCE BILL Blood BLOOD SPECIMEN / Unknown 07/13/2024 9:35 AM CDT 07/13/2024 Narrative [facility] INSURANCE BILL - 07/14/2024 7:09 AM CDT Performed at: [address] [id number] Correctional Supervising Cook: Jose Daley PhD, Phone: [phone] Mercedes Collins MD LAB - CHEMISTRY ORDERABLES Fin al Result [facility] INSURANCE BILL [address] [place] [address] * MICROALB/CREAT RATIO URINE RANDOM PANEL (07/13/2024 9:35 AM CDT) [facility] Creatinine Urine 170.6 Not Estab. mg/dL [facility] [...] - 07/14/2024 10:10 AM CDT Performed at: [address] [id number] Correctional Supervising Cook: Jose Daley PhD, Phone: [phone] Mercedes Collins MD LAB - URINE CHEMISTRY ORDERABL ES Final Result Performing Organization Address [facility] Co de Phone Number [facility] INSURANCE BILL [address] [place] [address] * VITAMIN D 25-HYDROXY (07/13/2024 9:23 AM CDT) Vitamin D, 25 Hydroxy 47.6 30.0 - 100.0 ng/mL [facility] INSURANCE BILL Comment: Vitamin D deficiency has been defined by the [place] of Medicine and an Endocrine Society practice guideline as a level of serum 25-OH vitamin D less than 20 ng/mL (1,2). The Endocrine Society went on to further define vitamin D insufficiency as a level between 21 and 29 ng/mL (2). 1. IOM ([place] of Medicine). 2010. Dietary reference intakes for calcium and D. [place]: The National Academies Press. 2. Jefferson MF, Noemi LESTER, Ryan ORNELAS, et al. Evaluation, treatment, and prevention of vitamin D deficiency: an Endocrine Society clinical practice guideline. JCEM. 2010; 96(7):1911-30. Blood BLOOD SPECIMEN / Unknown 07/13/2024 9:23 AM CDT 07/13/2024 Narrative [facility] INSURANCE BILL - 07/14/2024 8:11 AM CDT Performed at: [address] [place] [id number] Correctional Supervising Cook: Jose Daley PhD, Phone: [phone] Mercedes Collins MD LAB - CHEMISTRY ORDERABLES Fin al Result Performing Organization Address [facility] Co de Phone Number [facility] INSURANCE BILL [address] [place] [address] * HEMOGLOBIN A1C - POINT OF CARE (HgbA1C) (06/07/2024 1:37 PM CDT) Hemoglobin A1c POCT 8.1 % [facility] Expiration Date 01/04/[address] [facility] [address] [facility] Lot # [id number] [facility] QC Verified Yes Yes [facility] Blood BLOOD SPECIMEN / Unknown 06/07/2024 1:37 PM CDT us Mercedes Collins MD LAB - POINT OF CARE ORDERABLES Final Result [facility] [address] [place] [address], [facility] [phone] * (ABNORMAL) COMPREHENSIVE METABOLIC PANEL (10/17/2023 10:25 [...] Resulting Agency Comment Lab Testing performed at: [facility] [id number] us Mercedes Collins MD LAB - CHEMISTRY ORDERABLES Fin al Result [facility] INSURANCE BILL [address] [place] [address] * Mammo Bilat Screening W Hugo (10/13/2023 [...] Human Papilloma Interp 11/07/2020 5:01 PM CDT [facility] PATHOLOGY LAB Comment:High Risk Human Dev lloma Virus was Not Detected. Pathology/Cytolo gy MISCELLANEOUS SAMPLES / Unknown 11/02/2020 2:27 PM CDT 11/05/2020 12:05 PM CDT Narrative [facility] PATHOLOGY LAB - 11/07/2020 5:01 PM [...] LAB - MICROBIOLOGY ORDERABLES Fi nal Result [facility] PATHOLOGY LAB [facility] [address] [phone] * HIV-1 HIV-2 ANTIBODY + HIV P24 AG PANEL (02/24/2020 8:11 AM NAVAL AIRCREWMAN HELICOPTER) [facility] HIV Screen 4th Generation w Reflex Non Reactive Non Reactive [facility] INSURANCE BILL Blood BLOOD SPECIMEN / Unknown 02/24/2020 8:11 AM NAVAL AIRCREWMAN HELICOPTER 02/24/2020 Narrative Resulting Agency Comment Lab Testing performed at: [facility] [address] [facility] [phone] Mercedes Collins MD LAB - CHEMISTRY ORDERABLES Fin al Result [facility] INSURANCE BILL [address] [place] [address] * ENDOSCOPY, COLON, SCREENING (01/25/2016 9:18 AM NAVAL AIRCREWMAN HELICOPTER) Pathologist [facility] Report Endoscopy POC _ Patient Name: Joselin [...] colon cancer. Procedure Code(s): --- Professional --- 21011, Colonoscopy, flexible; diagnostic, including collection of specimen(s) by brushing or washing, when performed (separate procedure) --- Technical --- 30466, Colonoscopy, flexible; diagnostic, including collection of specimen(s) [...] or abscess without bleeding CPT copyright 2015 [employer]. All rights reserved. The codes documented in this report are preliminary and upon anesthesiology teacher review may be revised to meet current compliance requirements. Nikita Fraser MD 01/25/2016 9:58:01 AM This report has been signed electronically. Number of Addenda: 0 Note Initiated On: 01/25/2016 9:18 AM [facility] ENDOSCOPY 01/25/2016 9:18 AM NAVAL AIRCREWMAN HELICOPTER us Nikita Fraser MD GI PROCEDURE ORDERABLES Edited R esult - Final [facility] ENDOS[facility] * HEPATITIS C ANTIBODY (11/30/2012 12:54 [...] a more specific supplemental or PCR testing. [facility] offers HCV Ab w/Reflex to Verification test #[id number]. Blood specimen (specimen) BLOOD SPECIMEN / Unknown 11/30/2012 12:54 PM CDT 11/30/2012 7:02 PM CDT Narrative Resulting Agency Comment [facility] [address] [facility] [phone] us José Ashton MD LAB - CHEMISTRY ORDERABLES Chrissie l Result [facility] [address] [place] [address] from Last 3 Months or Most Recently Relevant to [place] [address] [employer] MEDICARE ADV [facility] MEDICARE [facility] Advance Directives Documents on File Type Date Recorded Patient Program Supervisor Expl anation Adv Directive/Living Will/POA 02/20/2013 9:49 [...] 5:18 PM 2010 11:41 PM Care Teams Stone Sandblaster Relationship Specialty Start Date End Date Mercedes Collins MD [address] [employer] [address] [place] [address] PCP - General Internal Medicine 05/17/19 Mercedes Collins MD [address] [facility] [address] [place] [address] [facility] 02/16/23 Chucky Menendez MD [address] [place] [address] [address] [place] [address] Product Strategy Director Pulmonary Disease 09/20/15 Wade Zelaya Jr., MD [address] [place] [address] [address] [place] [address] Rheumatology 12/01/16 Danielle Reina MD [address] [place] [phone] Orthopedic Surgery 12/01/16 Ramsey Barbosa MD [address] [place] [address] Internal Medicine 10/29/22
--- OUTSIDE RECORDS SUMMARY | 2024-09-05 17:22 | XMS_ITS | Encounter Summary ---
Author Organization [facility] Address [address] [place] [address] Care Team Providers Care Rate And Cost Analyst Name Role Phone Chucky Menendez MD Unavailable Nathalie Guzman MD, Wade Lopes Unavailable [phone] Danielle Reina MD Unavailable [phone] Mercedes Collins MD Primary Care Provider [phone] Ramsey Barbosa MD Unavailable [phone] Mercedes Collins MD Unavailable [phone] Encounter Details Date Type Department Care Team (Late st Contact Info) Description 07/20/2024 Results Follow-Up [facility] - Internal Medicine [address] [facility] [address] [place] [phone] Mercedes Collins MD [address] [place] [phone] Social History Tobacco Use Types Packs/Day [...] on file Legal 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 Gender Identity Not on file Sexual Orientation [...] 8:15 AM CDT Appointment Wound Care at [facility] [address] [place] [address] Todd Wheeler MD [address] [place] [phone] 10/06/2024 11:40 AM CDT Office Visit [facility] Medical [facility] - Internal Medicine [address] [facility] [address] [place] [phone] Mercedes Collins MD [address] [place] [address], [place] [phone] 12/01/2024 11:45 AM CDT [facility] - PROCESS PLANNER [address] [facility] [address] [place] [phone] Peterson Nance MD [address] [facility] [address] [place] [address] documented as of this encounter Visit Diagnoses Not on filedocumented in this encounter Care Teams Rate And Cost Analyst Relationship Specialty Start Date End Date Mercedes Collins MD [address] [facility] [address] [place] [phone] PCP - General Internal Medicine 05/17/19 Mercedes Collins MD [address] [place] [phone] PCP - Attributed-[facility] 02/16/23 Chucky Menendez MD [address] [place] [address] [address] [place] [address] Contract Recruiter Pulmonary Disease 09/20/15 Wade Zelaya Jr., MD [address] [place] [address] [address] [place] [address] Rheumatology 12/01/16 Danielle Reina MD [address] [place] [phone] Orthopedic Surgery 12/01/16 Ramsey Barbosa MD [address] [address] Internal Medicine 10/29/22 documented as of this encounter
--- OUTSIDE RECORDS SUMMARY | 2024-09-05 17:22 | XMS_ITS | Clinical Summary ---
Author Organization [facility] Address [address] [place] [address] Care Team Providers Care Application Assistant Name Role Phone Mercedes Collins MD Primary Care Provider + Andrzej Grimes OD Unavailable [phone] Ramsey Barbosa MD Unavailable [phone] Juana Leal RN Unavailable [phone] Allergies Active Allergy Reactions Criticality Noted Date Comments Ciprofloxacin Rash,Unknown,Diarrh ea,Urticaria High 09/10/2009 Leflunomide Unknown High 12/11/2015 Levofloxacin Other (See comments),Unknown Low 02/19/2009 Ruptured ligaments Lisinopril Other (See comments) Low 04/14/2024 Unsure of reaction, states was taken off for either diarrhea or swelling Simvastatin Other (See comments) Low 01/25/2016 Bone pain Bone pain Wvbtpes-Xfi-Vca Reductase Inhibitors Muscle pain,Unknown Medium 05/18/2014 Medications [...] s/s Assessment & Plan (04/19/2024 1:31 PM WEAPONS SYSTEM INSTRUMENT MECHANIC): No active inflammation, call if experiencing flare Assessment & Plan (04/17/2023 10:29 AM WEAPONS SYSTEM INSTRUMENT MECHANIC): Quiet both eyes (OU), RTC if experiencing flare Assessment & Plan (04/18/2022 12:13 PM WEAPONS SYSTEM INSTRUMENT MECHANIC): No sign of inflammation or sequelae from uveitis PLAN observe Diabetes mellitus type 2 without retinopathy 04/2022 Assessment & Plan (04/19/2024 1:31 PM WEAPONS SYSTEM INSTRUMENT MECHANIC): Pt ed. Stressed BG control (HbA1C<7) to reduce the risk for diabetic ocular complications. Lab Results Component Value Date HGBA1C 5.8 (H) 06/01/2015 Assessment & Plan (04/17/2023 10:29 AM WEAPONS SYSTEM INSTRUMENT MECHANIC): No retinopathy both eyes (OU). Pt ed. Stressed BG control (HbA1C<7) to reduce the risk for diabetic ocular complications. Lab Results Component Value Date HGBA1C 5.8 (H) 06/01/2015 Osteopenia 02/22/2022 Esophageal reflux 12/10/2021 Age-related cataract of both eyes 04/15/2021 Assessment & Plan (06/24/2024 11:37 AM CDT): ADL being met / NVS, monitor. Excellent BCVA with habitual SRx Assessment & Plan (04/19/2024 1:31 PM WEAPONS SYSTEM INSTRUMENT MECHANIC): Not v/s, monitor Assessment & Plan (05/06/2023 9:14 AM CDT): Stable best-corrected visual acuity (BVA), monitor Release updated glasses Rx Assessment & Plan (04/15/2021 11:03 AM WEAPONS SYSTEM INSTRUMENT MECHANIC): She is not bothered, observe Right rotator cuff tear arthropathy 11/24/2020 Controlled substance agreement signed 11/20/2020 Erythema nodosum 09/03/2020 Current chronic use of systemic steroids 021 Chronic diastolic heart failure 09/02/2020 Overview (05/30/2021): TTE 07/18/20 with normal LVEF, evidence of diastolic dysfunction, no valvular abnormalities [facility] 2013 without significant disease Negative HANNA November 2020 proBNP = 10 in August 2020 History of uveitis 09/02/2020 Assessment & Plan (04/15/2021 11:02 AM WEAPONS SYSTEM INSTRUMENT MECHANIC): She has no active inflammation today. Follow [...] Description 08/24/2024 9:40 AM CDT Office Visit [facility] Gastroenterology [facility] [address] [place] [address] [place] [phone] Jovani Almaguer MD Abdominal pain; Bloating 07/27/2024 12:30 PM CDT Office Visit [facility] Ophthalmology [address] [facility] [address], [address] [facility] [place] [phone] Daysi Deras, FABRICIO Bilateral chronic anterior uveitis (Primary Dx) 07/25/2024 1:00 PM CDT Infusion [facility] [address] [place] [phone] High risk medication use (Primary Dx); Rheumatoid arthritis involving multiple sites with positive rheumatoid factor (HCC) 07/15/2024 10:30 AM CDT Office Visit [facility] Rheumatology [address] [facility] 5th [place] [address] [place] [phone] Jeremi López MD PhD Rheumatoid arthritis involving multiple sites with positive rheumatoid factor (HCC) (Primary Dx); High risk medication use; Bilateral chronic anterior uveitis; Erythema nodosum; Current chronic use of systemic steroids; Interstitial lung disease (HCC) 06/29/2024 Telephone [facility] Rheumatology [address] [facility] [address] [place] [phone] Bonnie Neri RMA 06/24/2024 11:00 AM CDT Office Visit [facility] Ophthalmology [address] [facility] [address] 6th [address], [address] [facility] [place] [phone] Dev Gonzales, OD Bilateral chronic anterior uveitis (Primary Dx); Age-related cataract of both eyes 06/23/2024 2:00 PM CDT Infusion [facility] [address] [facility] [place] [phone] High risk medication use (Primary Dx); Rheumatoid arthritis involving multiple sites with positive rheumatoid factor (HCC) 06/23/2024 Telephone [facility] Infusion Therapy [address] [facility] 5th [place] [address] [place] [phone] Nesha Carrasco, ABHILASH Med Management 06/23/2024 Telephone [facility] Ophthalmology [address] [place] [address] Jennifer Mar, FABRICIO Scheduling Appointments from Last 3 Months Surgical History Surgery Date Site/Laterality Comments VA LIG/TRNSXJ FLP TUBE ABDL/ VAG APPR UNI/BI Tubal Ligation - (Added by TW Conv) ARTHRODESIS Arthrodesis Cervical - (Added by TW Conv) [facility] CHOLECYSTECTOMY Cholecystectomy - (Added by TW Conv) [...] on file Legal Sex Female 7:32 PM WEAPONS SYSTEM INSTRUMENT MECHANIC Gender Identity Not on file Sexual Orientation [...] ANTIBODY Routine Gen Lab 01/23/2017 1:16 PM WEAPONS SYSTEM INSTRUMENT MECHANIC SCREENING MAMMOGRAM Routine 10/19/2012 1 2:46 PM CDT SERUM LIPID PANEL Routine 10/19/2012 12: 05 PM CDT from Last 3 Months or Most Recently Relevant to Health Maintenance Results * TB test, quantiferon gold (07/16/2024 10:09 AM CDT) Pathologist [facility] [place] QuantiFERON Incubation Incubation performed. [facility] - 01 [...] - 07/19/2024 10:07 PM CDT Performed at: [address] [place] [id number] Counseling Specialist: Jose Daley PhD, Phone: [phone] [facility] Clive López MD PhD LAB BLOOD ORDERABLE S Final Result [facility] * (ABNORMAL) Erythrocyte sedimentation rate (07/16/2024 10:09 AM CDT) [facility] Erythrocyte sedimentation rate 65(H) 0 - 40 mm/hr [facility] - 01 Blood 07/16/2024 10:0 9 AM CDT 07/16/2024 Narrative [facility] - 07/17/2024 7:08 AM CDT Performed at: [address] [place] [id number] Counseling Specialist: Jose Daley PhD, Phone: [phone] Jeremi López MD PhD LAB BLOOD ORDERABLE S Final Result Performing Organization Address [facility] Co de Phone Number [facility] - 01 * (ABNORMAL) CBC without differential (07/16/2024 10:09 AM CDT) Pathologist [facility] [place] WBC 9.9 3.4 - 10.8 x10E3/uL [facility] [...] - 07/17/2024 7:08 AM CDT Performed at: [address] [place], [place] [id number] [place], [place] [id number] Counseling Specialist: Jose Daley PhD, Phone: [phone] us Jeremi López MD PhD LAB BLOOD ORDERABLE S Final Result Performing Organization Address City/[facility]/ZIP Co de Phone Number [facility] - 01 * CRP (acute phase) (07/16/2024 10:09 AM CDT) [facility] CRP 6 0 - 10 mg/L [facility] - 01 Blood 07/16/2024 10:0 9 AM CDT 07/16/2024 Narrative [facility] - 07/17/2024 9:09 AM CDT Performed at: 01 - [address] [id number] Counseling Specialist: Jose Daley PhD, Phone: [phone] Jeremi López MD PhD LAB BLOOD ORDERABLE S Final Result [facility] - 01 * (ABNORMAL) Comprehensive metabolic panel (07/16/2024 10:09 AM CDT) [facility] Glucose 132(H) 70 - 99 mg/dL [...] 7:08 AM CDT Performed at: 01 - [address] [id number] Counseling Specialist: Jose Daley PhD, Phone: [phone] us Jeremi López MD PhD LAB BLOOD ORDERABLE S Final Result Performing Organization Address City/[facility]/ZIP Co de Phone Number [facility] - 01 * Hepatitis C antibody (01/23/2017 1:16 PM WEAPONS SYSTEM INSTRUMENT MECHANIC) Hep C Ab Nonreactive Nonreactive [facility] Comment: Interpretive Data Positive and greyzone results should be confirmed by a molecular method. If positive or greyzone, a second separately collected sample should be submitted for Hepatitis C Virus RNA. Detection and Quantitation by Real-Time Reverse Malted Milk Mixer-PCR.Current Interpretive data was last revised on 2016. Blood specimen (specimen) 01/23/2017 1:16 PM WEAPONS SYSTEM INSTRUMENT MECHANIC 01/23/2017 4:49 PM WEAPONS SYSTEM INSTRUMENT MECHANIC Narrative [facility] - 01/24/2017 9:19 AM WEAPONS SYSTEM INSTRUMENT MECHANIC Rocio Ellis MD LAB MICROBIOLOGY - GENERAL OR DERABLES Edited Result - Final Performing Organization Address City/[facility] Co de Phone Number [facility] Department [place] [address] * Screening Mammogram (10/19/2012 12:46 PM CDT) Anatomical Region Laterality Modality Breast N/A Mammography 10/19/2012 12:4 6 PM CDT Narrative 10/20/2012 1:30 PM CDT ANGELICA BYNUM M.D. FINAL REPORT ACC# Date Time Exam [id number] Oct 19, 2012 12:46:00 [facility] [id number] Screening Mamm Bilat Technologist(s): Dilia Gregg; ; EXAMINATION: Mammogram Findings: A Full-Field Digital Screening Mammogram was performed. Views obtained: bilateral craniocaudal; bilateral mediolateral oblique. Computer Aided Detection was performed with [employer].3 version 9.3. The present examination has been compared to prior imaging studies performed at [facility] on 10/06/2011, 03/05/2010 and 06/23/2008. The breasts [...] M.D. FINAL REPORT ACC# Date Time Exam [id number] Oct 19, 2012 12:46:00 [facility] [address]134 Screening Mamm Bilat Technologist(s): Dilia Gregg; ; EXAMINATION: Mammogram Findings: A Full-Field Digital Screening Mammogram was performed. Views obtained: bilateral craniocaudal; bilateral mediolateral oblique. Computer Aided Detection was performed with [employer].3 version 9.3. The present examination has been compared to prior imaging studies performed at [facility] on 10/06/2011, 03/05/2010 and 06/23/2008. The breasts [...] Most Recently Relevant to Health [place] [address] T MEDICARE FOR LIFE MEDICARE [employer] OPEN ACCESS [facility] [id number] [employer] MEDICARE [facility] MEDICARE STATES [employer] [facility] MEDICARE Address: [facility] [id number] [place] [phone] FOR LIFE [facility] [place] [address] Care Teams Application Assistant Relationship Specialty Start Date End Date Mercedes Collins MD [address] [address] PCP - General 06/25/17 Andrzej Grimes, OD [address] [place] [address] Referring Physician Ophthalmology 04/18/20 Ramsey Barbosa MD [address] [place] [address] Lead Nitrate Processor Transplant 05/30/21 Juana Leal, RN [address] [address] Heart Failure Coordinator Ink Grinder 05/30/21
--- OUTSIDE RECORDS SUMMARY | 2024-09-05 17:22 | XMS_ITS | Encounter Summary ---
Author Organization [facility] Address [address] [facility] [place] [address] Care Team Providers Care Electronic Typesetting Machine Operator Name Role Phone Chucky Menendez MD Unavailable [phone] Nathalie Guzman MD, Wade Lopes Unavailable [phone] Danielle Reina MD Unavailable [phone] Mercedes Collins MD Primary Care Provider [phone] Ramsey Barbosa MD Unavailable Mercedes Collins MD Unavailable [phone] Encounter Details Date Type Department Care Team (Late st Contact Info) Description 09/01/2024 Results Follow-Up [facility] Medical Group - Internal Medicine [address] [facility] [address] [place] [phone] Mercedes Collins MD [address] [place] [phone] Social History Tobacco Use Types Packs/Day [...] on file Legal Sex Female 6:43 AM MANUAL TESTER Gender Identity Not on file Sexual Orientation [...] AM CDT Appointment Wound Care at [facility] [address] [place] [address] Todd Wheeler MD [address] [place] [phone] 10/06/2024 11:40 AM CDT Office Visit [facility] Medical [facility] - Internal Medicine [address] [facility] [address] [place] [phone] Mercedes Collins MD [address] [place] [address], [place] [phone] 12/01/2024 11:45 AM CDT Office [facility] - SHIFT MECHANIC [address] [facility] [address] [place] [phone] Peterson Nance MD [address] [facility] [address] [place] [address] documented as of this encounter Visit Diagnoses Not on filedocumented in this encounter Care Teams Electronic Typesetting Machine Operator Relationship Specialty Start Date End Date Mercedes Collins MD [address] [facility] [address] [place] [phone] PCP - General Internal Medicine 05/17/19 Mercedes Collins MD [address] [place] [phone] PCP - [facility] 02/16/23 Chucky Menendez MD [address] [place] [address] [address] [place] [address] Television Producer Pulmonary Disease 09/20/15 Wade Zelaya Jr., MD [address] [place] [address] [address] [place] [address] Rheumatology 12/01/16 Danielle Reina MD [address] [place] [phone] Orthopedic Surgery 12/01/16 Ramsey Barbosa MD [address] [address] Internal Medicine 10/29/22 documented as of this encounter
--- OUTSIDE RECORDS SUMMARY | 2024-09-05 17:22 | XMS_ITS | Encounter Summary ---
Author Organization [facility] Address [address] [facility] [place] [address] Care Team Providers Care Panel Assembler Name Role Phone Chucky Menendez MD Unavailable Nathalie Guzman MD, Wade Lopes Unavailable [phone] Danielle Reina MD Unavailable [phone] Mercedes Collins MD Primary Care Provider Ramsey Barbosa MD Unavailable [phone] Mercedes Collins MD Unavailable [phone] Reason for Visit * Reason Onset Date Comments WOUND INFECTION 09/05/2024 Pain 09/05/2024 Encounter Details Date Type Department Care Team (Late st Contact Info) Description 09/05/2024 Telephone [facility] Medical [facility] - Internal Medicine [address] [facility] [address] [place] [address] Mercedes Collins MD [address] [place] [address] [place] [phone] WOUND INFECTION; Pain Social History Tobacco [...] on file Legal Sex Female 6:43 AM SCIENTIFIC SPECIALIST Gender Identity Not on file Sexual [...] 8:15 AM CDT Appointment Wound Care at [facility] [address] [place] [address] Todd Wheeler MD [address] [place] [phone] 10/06/2024 11:40 AM CDT Office Visit [facility] Medical [facility] - Internal Medicine [address] [place] [phone] Mercedes Collins MD [address] [place] [phone] 12/01/2024 11:45 AM CDT Office Visit [facility] - RN PHYSICIAN OFFICE [address] [place] [phone] Peterson Nance MD [address] [place] [phone] documented as of this encounter Visit Diagnoses Not on filedocumented in this encounter Care Teams Panel Assembler Relationship Specialty Start Date End Date Mercedes Collins MD [address] [place] [phone] PCP - General Internal Medicine 05/17/19 Mercedes Collins MD [address] [place] [address] [address] [place] [phone] PCP - [facility] 02/16/23 Chucky Menendez MD [address] [place] [address] [address] [place] [address] Manager Floor Pulmonary Disease 09/20/15 Wade Zelaya Jr., MD [address] [place] [address] Rheumatology 12/01/16 [place] [address] [place] [phone] Orthopedic Surgery 12/01/16 Ramsey Barbosa MD [address] [address] Internal Medicine 10/29/22 documented as of this encounter
[2024-09-05 17:26] LABS: INR 1.3; Partial Thromboplastin Time 29.9 Seconds (22.3-36.8); Prothrombin Time 16.1 Seconds (11.1-14.7)
--- NOTE | 2024-09-05 18:07 | ED_ITS ---
HPI - Skin/Abscess/Foreign Bdy General Chief complaint: Skin/Abscess/Foreign Body <Evon Rao PA-C - Last Filed: 09/06/24 17:52> Stated complaint: ulcers to BLE, pain <Evon Rao PA-C - Last Filed: 09/06/24 17:52> Time Seen by Provider: 09/05/24 17:09 <Evon Rao PA-C - Last Filed: 09/06/24 17:52> Source: patient <Evon Rao PA-C - Last Filed: 09/06/24 17:52> Mode of arrival: ambulatory <Eovn Rao PA-C - Last Filed: 09/06/24 17:52> Limitations: no limitations <Evon Rao PA-C - Last Filed: 09/06/24 17:52> History of Present Illness HPI narrative: This is a 63-year-old female that presents to the emergency department for painful ulcerations on her bilateral lower legs. Reports this has been ongoing issue for months. She has had worsening pain, swelling, abnormal drainage from the lesions over the last week. She saw her PCP was started on doxycycline without relief. She has been seeing a full stack web developer, Dr. Marisol Sahu in [facility]. Was diagnosed with erythema nodosum and had intralesional corticosteroid injections. <Evon Rao PA-C - Last Filed: 09/06/24 17:52> Related Data Home medications: Home Medications ?Medication ?Instructions ?Recorded ?Confirmed ?Last Taken ?Type albuterol sulfate 90 mcg/actuation 2 puff inhalation Q4-6H PRN 10/19/19 09/06/24 Unknown History aerosol inhaler shortness of breath or wheezing folic acid 1 mg tablet 1 mg PO DAILY 10/19/19 09/06/24 Unknown History furosemide 40 mg tablet 40 mg PO DAILY 10/19/19 09/06/24 09/06/24 History hydrocodone 5 mg-acetaminophen 325 1 - 2 tablet PO BID PRN pain 10/19/19 09/06/24 Unknown History mg tablet levothyroxine 88 mcg tablet 88 mcg PO DAILY 10/19/19 09/06/24 Unknown History metformin 500 mg tablet 1,000 mg PO .complex 10/19/19 09/06/2409/06/25 History rivaroxaban 20 mg tablet (Xarelto) 20 mg PO HS 10/19/19 09/06/24 Unknown History rosuvastatin 10 mg tablet 10 mg PO WEEKLY 10/19/19 09/06/24 Unknown History triamcinolone acetonide 0.1 % 1 applic topical QID PRN dry skin 10/19/19 09/06/24 Unknown History topical ointment umeclidinium 62.5 mcg-vilanterol 1 inh inhalation BID 10/19/19 09/06/24 09/06/24 History 25 mcg/actuation powdr for inhalation (Anoro Ellipta) verapamil 240 mg tablet,extended 240 mg PO BID 10/19/19 09/06/24 09/06/24 History release spironolactone 25 mg tablet 12.5 mg PO DAILY 01/24/24 09/06/24 Unknown History vibegron 75 mg tablet (Gemtesa) 75 mg PO HS 01/24/24 09/06/24 Unknown History famotidine 20 mg tablet 20 mg PO HS 09/06/24 09/06/24 09/05/24 History <Evon Rao PA-C - Last Filed: 09/06/24 17:52> Allergies/Adverse reactions: Allergies Allergy/AdvReac Type Severity Reaction Status Date / Time levofloxacin Allergy Severe LIGAMENT Verified 09/06/24 20:00 DAMAGE, AND TENDON DAMAGE simvastatin Allergy Intermediate Other Verified 09/06/24 20:00 ciprofloxacin Allergy Mild Unknown Verified 09/06/24 20:00 lisinopril Allergy Unknown Unknown Verified 09/06/24 20:00 <Evon Rao PA-C - Last Filed: 09/06/24 17:52> Review of Systems 2 Review of Systems: All systems reviewed & are unremarkable except as noted in HPI and below <Evon Rao PA-C - Last Filed: 09/06/24 17:52> [facility] Past Medical History Medical History: Medical History (Updated 09/07/24 @ 16:54 by Lisa Villatoro, RADHA) Chronic anticoagulation Hypertension Postablative hypothyroidism Peptic ulcer Gastroesophageal reflux disease Obstructive sleep apnea Type 2 diabetes mellitus Graves disease Rheumatoid arthritis Status post radioactive iodine ablation Pulmonary hypertension Pulmonary embolism <Evon Rao PA-C - Last Filed: 09/06/24 17:52> Surgical History Surgical History: Surgical History (Updated 09/06/24 @ 22:33 by Carline Mayes PA-C) History of cervical spinal surgery History of cholecystectomy <Evon Rao PA-C - Last Filed: 09/06/24 17:52> Family History Family History: Family History Mother Rheumatoid arthritis Anemia Cerebrovascular accident Father Pancreatitis Osteoarthritis Sibling Heart failure Heart transplant recipient Diabetes mellitus Osteoarthritis Crohn disease <Evon Rao PA-C - Last Filed: 09/06/24 17:52> Social History Social History: Social History (Updated 09/06/24 @ 22:33 by Carline Mayes PA-C) Social History: Surrogate medical decision maker: Abhijit Turner, spouse. Code status: Full code. Smoking status: Former smoker Do You Feel Safe in your Home?: Yes Lack of Transportation: No Lack of Food: Never True Current Housing: I Have Housing Concerned About Future Housing: No Difficulty Paying Gas/Electric Bills: No Difficulty Paying for Meds: No Currently Unemployed: No Education: Bachelor's Degree Difficulty w/ Childcare or Family Care: No Spiritual care concerns: No <Evon Rao PA-C - Last Filed: 09/06/24 17:52> Exam 2 Narrative: GENERAL: Well-appearing, well-nourished, and in no acute distress. HEAD: Normocephalic, atraumatic. EYES: EOMI. CHEST: Clear to auscultation. No respiratory distress. No wheezes rales or rhonchi. Tender to palpation of left chest wall HEART: Regular rate and rhythm. No murmur heard. Normal peripheral pulses. EXTREMITIES: Normal range of motion. Several ulcerations present to the bilateral lower extremities with surrounding erythema, abnormal drainage. Several small abscesses present on the feet. Normal DP pulses SKIN: Warm, dry, no rash. NEURO: No focal deficits. Alert and oriented x3. PSYCH: Normal mood and affect <Evon Rao PA-C - Last Filed: 09/06/24 17:52> Course Course Emergency Course: Unable to reach the patient's full stack web developer as it is after hours <Evon Rao PA-C - Last Filed: 09/06/24 17:52> Unable to reach the patient's full stack web developer as it is after hours Patient signed out to [facility] at 0700 on 09/06/24. Patient was having pain so orders for analgesics were put in. Both [facility] and [facility] were called for an update on bed status after patient had been in the ED for 23+ hours; both anticipate it could be a day or days. Patient discussed with semiconductor testing group leader hospitalist KENJI Crowley who accepted admission to [place] in the interim. Patient was notified and agreeable. <Chastity Darling MD - Last Filed: 09/07/24 17:08> Consultations Consultation #1: Spoke with hospitalist about patient and workup. Recommends transfer for dermatology consult <Evon Rao PA-C - Last Filed: 09/06/24 17:52> Date: 09/05/24 <Evon Rao PA-C - Last Filed: 09/06/24 17:52> Consultation #2: Spoke with hospitalist at [facility], about patient and workup who accepts transfer, patient is on waitlist <Evon Rao PA-C - Last Filed: 09/06/24 17:52> Date: 09/05/24 <Evon Rao PA-C - Last Filed: 09/06/24 17:52> Consultation #3: Spoke with hospitalist at [facility], about patient and workup who accepts transfer, patient is on waitlist <Evon Rao PA-C - Last Filed: 09/06/24 17:52> Date: 09/05/24 <Evon Rao PA-C - Last Filed: 09/06/24 17:52> Vital Signs Vital signs: Vital Signs Temperature 98.2 F 09/05/24 16:31 Pulse Rate 98 09/05/24 16:31 Respiratory Rate 16 09/05/24 16:31 Blood Pressure 171/90 H 09/05/24 16:31 Pulse Oximetry 99 09/05/24 16:31 Temperature 98.2 F 09/07/24 14:00 Pulse Rate 91 09/07/24 14:00 Respiratory Rate 16 09/07/24 14:00 Blood Pressure 127/68 09/07/24 14:00 Pulse Oximetry 100 09/07/24 14:00 Oxygen Delivery Room Air 09/07/24 12:49 <Evon Rao PA-C - Last Filed: 09/06/24 17:52> Vital Signs Temperature 98.2 F 09/05/24 16:31 Pulse Rate 98 09/05/24 16:31 Respiratory Rate 16 09/05/24 16:31 Blood Pressure 171/90 H 09/05/24 16:31 Pulse Oximetry 99 09/05/24 16:31 Temperature 98.2 F 09/07/24 14:00 Pulse Rate 91 09/07/24 14:00 Respiratory Rate 16 09/07/24 14:00 Blood Pressure 127/68 09/07/24 14:00 Pulse Oximetry 100 09/07/24 14:00 Oxygen Delivery Room Air 09/07/24 12:49 <Rachid Joshi MD - Last Filed: 09/06/24 06:40> Vital Signs Temperature 98.2 F 09/05/24 16:31 Pulse Rate 98 09/05/24 16:31 Respiratory Rate 16 09/05/24 16:31 Blood Pressure 171/90 H 09/05/24 16:31 Pulse Oximetry 99 09/05/24 16:31 Temperature 98.2 F 09/07/24 14:00 Pulse Rate 91 09/07/24 14:00 Respiratory Rate 16 09/07/24 14:00 Blood Pressure 127/68 09/07/24 14:00 Pulse Oximetry 100 09/07/24 14:00 Oxygen Delivery Room Air 09/07/24 12:49 <Chastity Darling MD - Last Filed: 09/07/24 17:08> MDM - Skin/Abscess/Foreign Bdy MDM Narrative Medical decision making narrative: Patient presents the emergency department for wounds to her bilateral lower extremities, over the last several months. Acute worsening over the last week. Several ulcerations noted with surrounding redness, abnormal drainage to the bilateral lower legs. She is afebrile and nontoxic appearing. CBC with mild leukocytosis to 11.7. Inflammatory markers are elevated. Initial lactic elevated, this normalized with IV fluids. Upon arrival she was also endorsing some chest discomfort. She is tender to palpation of her chest wall. EKG without acute ST changes. Baseline and 3 hour troponins are negative. Chest x- ray without acute cardiopulmonary abnormality. Blood cultures obtained, as well as wound culture. Patient started on IV antibiotics. Unable to reach the patient's full stack web developer as it is after hours. Spoke with hospitalist about patient and workup. Recommends transfer for dermatology consult. Spoke with hospitalist at [facility], about patient and workup who accepts transfer, patient is on waitlist. Spoke with hospitalist at [facility], about patient and workup who accepts transfer, patient is on waitlist. Care taken over by Dr. Joshi at shift change <Evon Rao PA-C - Last Filed: 09/06/24 17:52> Patient presents the emergency department for wounds to her bilateral lower extremities, over the last several months. Acute worsening over the last week. Several ulcerations noted with surrounding redness, abnormal drainage to the bilateral lower legs. She is afebrile and nontoxic appearing. CBC with mild leukocytosis to 11.7. Inflammatory markers are elevated. Initial lactic elevated, this normalized with IV fluids. Upon arrival she was also endorsing some chest discomfort. She is tender to palpation of her chest wall. EKG without acute ST changes. Baseline and 3 hour troponins are negative. Chest x- ray without acute cardiopulmonary abnormality. Blood cultures obtained, as well as wound culture. Patient started on IV antibiotics. Unable to reach the patient's full stack web developer as it is after hours. Spoke with hospitalist about patient and workup. Recommends transfer for dermatology consult. Spoke with hospitalist at [facility], about patient and workup who accepts transfer, patient is on waitlist. Spoke with hospitalist at [facility], about patient and workup who accepts transfer, patient is on waitlist. Care taken over by Dr. Joshi at shift change. Patient care assumed at shift change 3:00 a.m.. Patient remains hemodynamically stable, awaiting bed assignment at either [facility] or [place]. [facility] accepting: Dr. Iris Whyte [facility] accepting: Dr. Lopez I did call both transfer centers once again to get an update on bed status and there is a multiple day wait list on both. Patient remains on antibiotics here and will be likely admitted after 24 hours for management here until transfer successful or we can reach her own full stack web developer for recs. Patient care signed over to oncoming ER physician in the morning. <Rachid Joshi MD - Last Filed: 09/06/24 06:40> Differential Diagnosis Differential diagnosis: Likely abscess of skin or subcutaneous tissue, cellulitis and other (Pyoderma gangrenosum, erythema nodosum) <Evon Rao PA-C - Last Filed: 09/06/24 17:52> Lab Data Attestation: I reviewed the patient's lab results. <Evon Rao PA-C - Last Filed: 09/06/24 17:52> Result diagrams: 09/07/24 04:34 09/07/24 04:34 <Evon Rao PA-C - Last Filed: 09/06/24 17:52> Labs: Lab Results 09/05/24 09/05/24 09/05/24 Range/Units 17:05 17:06 19:20 WBC 11.7 H (4.5-10.0) K/mm3 RBC 4.64 (4.2-5.4) M/mm3 Hgb 12.7 (12.0-15.0) g/dL Hct 39.9 (37.0-47.0) % MCV 86.0 (80-100) fl MCH 27.4 (26-34) pg MCHC 31.8 L (32-36) g/dl RDW 13.7 (11.5-14.5) % Plt Count 382 H (150-375) k/mm3 MPV 9.3 (7.4-10.4) fl Immature Gran % (Auto) 1.7 H (0-0.5) % Neut % (Auto) 61.8 (45.5-73.1) % Lymph % (Auto) 26.3 (18.3-44.2) % [place] % (Auto) 8.7 H (2.6-8.5) % Eos % (Auto) 0.9 (0-4.4) % Baso % (Auto) 0.6 (0.2-1.2) % Lymph # (Auto) 3.09 (0.9-3.2) K/mm3 [place] # (Auto) 1.0 H (0.1-0.6) K/mm3 Eos # (Auto) 0.1 (0-0.3) K/mm3 Baso # (Auto) 0.1 (0.0-0.1) K/mm3 Abs Immat Gran (auto) 0.20 H (0.00-0.031) K/mm3 Absolute Neuts (auto) 7.3 H (1.3-6.7) K/mm3 Absolute Nucleated RBC 0.000 (0.0-0.012) K/mm3 Nucleated RBC % 0.0 (0.0-0.2) % ESR 21 H (0-20) mm/hr PT 16.1 H (11.1-14.7) Seconds INR 1.3 APTT 29.9 (22.3-36.8) Seconds Sodium 137 (137-145) mmol/L Potassium 3.7 (3.4-5.0) mmol/L Chloride 102 (98-107) mmol/L Carbon Dioxide 27 (22-30) mmol/L Anion Gap 8 (4-12) mmol/L BUN 13 (7-17) mg/dL Creatinine 0.81 (0.7-1.0) mg/dL Estim Creat Clear Calc 81 ml/min Estimated GFR > 60 (59 - ) Glucose 114 H (65-110) mg/dL POC Capillary Glucose (65-105) mg/dl Hemoglobin A1c 8.3 H (<5.7) % Lactic Acid 2.1 H (0.7-2.0) mmol/L Calcium 9.4 (8.4-10.2) mg/dL Magnesium (1.6-2.3) mg/dL Total Bilirubin 1.0 (0.2-1.3) mg/dL AST 31 (14-36) U/L ALT 30 (6-35) U/L Alkaline Phosphatase 94 (38-126) U/L Troponin I < 0.012 (0.000-0.034) ng/mL C-Reactive Protein 4.6 H (<1.0) mg/dL Total Protein 8.4 H (6.3-8.2) g/dL Albumin 4.1 (3.5-5.1) g/dL Lipase 53 (23-300) U/L TSH (Reflex) (0.465-4.68) uIU/mL Vancomycin Trough (10.0-20.0) ug/mL 07/21/25 07/21/25 07/22/25 Range/Units 21:00 22:22 06:15 WBC (4.5-10.0) K/mm3 RBC (4.2-5.4) M/mm3 Hgb (12.0-15.0) g/dL Hct (37.0-47.0) % MCV (80-100) fl MCH (26-34) pg MCHC (32-36) g/dl RDW (11.5-14.5) % Plt Count (150-375) k/mm3 MPV (7.4-10.4) fl Immature Gran % (Auto) (0-0.5) % Neut % (Auto) (45.5-73.1) % Lymph % (Auto) (18.3-44.2) % [place] % (Auto) (2.6-8.5) % Eos % (Auto) (0-4.4) % Baso % (Auto) (0.2-1.2) % Lymph # (Auto) (0.9-3.2) K/mm3 [place] # (Auto) (0.1-0.6) K/mm3 Eos # (Auto) (0-0.3) K/mm3 Baso # (Auto) (0.0-0.1) K/mm3 Abs Immat Gran (auto) (0.00-0.031) K/mm3 Absolute Neuts (auto) (1.3-6.7) K/mm3 Absolute Nucleated RBC (0.0-0.012) K/mm3 Nucleated RBC % (0.0-0.2) % ESR (0-20) mm/hr PT (11.1-14.7) Seconds INR APTT (22.3-36.8) Seconds Sodium (137-145) mmol/L Potassium (3.4-5.0) mmol/L Chloride (98-107) mmol/L Carbon Dioxide (22-30) mmol/L Anion Gap (4-12) mmol/L BUN (7-17) mg/dL Creatinine 0.77 (0.7-1.0) mg/dL Estim Creat Clear Calc 85 ml/min Estimated GFR > 60 (59 - ) Glucose (65-110) mg/dL POC Capillary Glucose (65-105) mg/dl Hemoglobin A1c (<5.7) % Lactic Acid 1.4 (0.7-2.0) mmol/L Calcium (8.4-10.2) mg/dL Magnesium (1.6-2.3) mg/dL Total Bilirubin (0.2-1.3) mg/dL AST (14-36) U/L ALT (6-35) U/L Alkaline Phosphatase (38-126) U/L Troponin I < 0.012 (0.000-0.034) ng/mL C-Reactive Protein (<1.0) mg/dL Total Protein (6.3-8.2) g/dL Albumin (3.5-5.1) g/dL Lipase (23-300) U/L TSH (Reflex) (0.465-4.68) uIU/mL Vancomycin Trough (10.0-20.0) ug/mL 09/06/24 09/07/24 09/07/24 Range/Units 19:53 04:34 08:26 WBC 13.3 H (4.5-10.0) K/mm3 RBC 4.24 (4.2-5.4) M/mm3 Hgb 11.8 L (12.0-15.0) g/dL Hct 37.0 (37.0-47.0) % MCV 87.3 (80-100) fl MCH 27.8 (26-34) pg MCHC 31.9 L (32-36) g/dl RDW 13.6 (11.5-14.5) % Plt Count 363 (150-375) k/mm3 MPV 8.9 (7.4-10.4) fl Immature Gran % (Auto) (0-0.5) % Neut % (Auto) (45.5-73.1) % Lymph % (Auto) (18.3-44.2) % [place] % (Auto) (2.6-8.5) % Eos % (Auto) (0-4.4) % Baso % (Auto) (0.2-1.2) % Lymph # (Auto) (0.9-3.2) K/mm3 [place] # (Auto) (0.1-0.6) K/mm3 Eos # (Auto) (0-0.3) K/mm3 Baso # (Auto) (0.0-0.1) K/mm3 Abs Immat Gran (auto) (0.00-0.031) K/mm3 Absolute Neuts (auto) (1.3-6.7) K/mm3 Absolute Nucleated RBC (0.0-0.012) K/mm3 Nucleated RBC % (0.0-0.2) % ESR (0-20) mm/hr PT (11.1-14.7) Seconds INR APTT (22.3-36.8) Seconds Sodium 135 L (137-145) mmol/L Potassium 3.6 (3.4-5.0) mmol/L Chloride 102 (98-107) mmol/L Carbon Dioxide 27 (22-30) mmol/L Anion Gap 6 (4-12) mmol/L BUN 11 (7-17) mg/dL Creatinine 0.88 (0.7-1.0) mg/dL Estim Creat Clear Calc 77 ml/min Estimated GFR > 60 (59 - ) Glucose 137 H (65-110) mg/dL POC Capillary Glucose 119 H 125 H (65-105) mg/dl Hemoglobin A1c (<5.7) % Lactic Acid (0.7-2.0) mmol/L Calcium 8.8 (8.4-10.2) mg/dL Magnesium 1.9 (1.6-2.3) mg/dL Total Bilirubin (0.2-1.3) mg/dL AST (14-36) U/L ALT (6-35) U/L Alkaline Phosphatase (38-126) U/L Troponin I (0.000-0.034) ng/mL C-Reactive Protein (<1.0) mg/dL Total Protein (6.3-8.2) g/dL Albumin (3.5-5.1) g/dL Lipase (23-300) U/L TSH (Reflex) 3.500 (0.465-4.68) uIU/mL Vancomycin Trough (10.0-20.0) ug/mL 09/07/24 Range/Units 08:52 WBC (4.5-10.0) K/mm3 RBC (4.2-5.4) M/mm3 Hgb (12.0-15.0) g/dL Hct (37.0-47.0) % MCV (80-100) fl MCH (26-34) pg MCHC (32-36) g/dl RDW (11.5-14.5) % Plt Count (150-375) k/mm3 MPV (7.4-10.4) fl Immature Gran % (Auto) (0-0.5) % Neut % (Auto) (45.5-73.1) % Lymph % (Auto) (18.3-44.2) % [place] % (Auto) (2.6-8.5) % Eos % (Auto) (0-4.4) % Baso % (Auto) (0.2-1.2) % Lymph # (Auto) (0.9-3.2) K/mm3 [place] # (Auto) (0.1-0.6) K/mm3 Eos # (Auto) (0-0.3) K/mm3 Baso # (Auto) (0.0-0.1) K/mm3 Abs Immat Gran (auto) (0.00-0.031) K/mm3 Absolute Neuts (auto) (1.3-6.7) K/mm3 Absolute Nucleated RBC (0.0-0.012) K/mm3 Nucleated RBC % (0.0-0.2) % ESR (0-20) mm/hr PT (11.1-14.7) Seconds INR APTT (22.3-36.8) Seconds Sodium (137-145) mmol/L Potassium (3.4-5.0) mmol/L Chloride (98-107) mmol/L Carbon Dioxide (22-30) mmol/L Anion Gap (4-12) mmol/L BUN (7-17) mg/dL Creatinine (0.7-1.0) mg/dL Estim Creat Clear Calc ml/min Estimated GFR (59 - ) Glucose (65-110) mg/dL POC Capillary Glucose (65-105) mg/dl Hemoglobin A1c (<5.7) % Lactic Acid (0.7-2.0) mmol/L Calcium (8.4-10.2) mg/dL Magnesium (1.6-2.3) mg/dL Total Bilirubin (0.2-1.3) mg/dL AST (14-36) U/L ALT (6-35) U/L Alkaline Phosphatase (38-126) U/L Troponin I (0.000-0.034) ng/mL C-Reactive Protein (<1.0) mg/dL Total Protein (6.3-8.2) g/dL Albumin (3.5-5.1) g/dL Lipase (23-300) U/L TSH (Reflex) (0.465-4.68) uIU/mL Vancomycin Trough 14.9 (10.0-20.0) ug/mL <Evon Rao PA-C - Last Filed: 09/06/24 17:52> Lab Results 09/05/24 09/05/24 09/05/24 Range/Units 17:05 17:06 19:20 WBC 11.7 H (4.5-10.0) K/mm3 RBC 4.64 (4.2-5.4) M/mm3 Hgb 12.7 (12.0-15.0) g/dL Hct 39.9 (37.0-47.0) % MCV 86.0 (80-100) fl MCH 27.4 (26-34) pg MCHC 31.8 L (32-36) g/dl RDW 13.7 (11.5-14.5) % Plt Count 382 H (150-375) k/mm3 MPV 9.3 (7.4-10.4) fl Immature Gran % (Auto) 1.7 H (0-0.5) % Neut % (Auto) 61.8 (45.5-73.1) % Lymph % (Auto) 26.3 (18.3-44.2) % [place] % (Auto) 8.7 H (2.6-8.5) % Eos % (Auto) 0.9 (0-4.4) % Baso % (Auto) 0.6 (0.2-1.2) % Lymph # (Auto) 3.09 (0.9-3.2) K/mm3 [place] # (Auto) 1.0 H (0.1-0.6) K/mm3 Eos # (Auto) 0.1 (0-0.3) K/mm3 Baso # (Auto) 0.1 (0.0-0.1) K/mm3 Abs Immat Gran (auto) 0.20 H (0.00-0.031) K/mm3 Absolute Neuts (auto) 7.3 H (1.3-6.7) K/mm3 Absolute Nucleated RBC 0.000 (0.0-0.012) K/mm3 Nucleated RBC % 0.0 (0.0-0.2) % ESR 21 H (0-20) mm/hr PT 16.1 H (11.1-14.7) Seconds INR 1.3 APTT 29.9 (22.3-36.8) Seconds Sodium 137 (137-145) mmol/L Potassium 3.7 (3.4-5.0) mmol/L Chloride 102 (98-107) mmol/L Carbon Dioxide 27 (22-30) mmol/L Anion Gap 8 (4-12) mmol/L BUN 13 (7-17) mg/dL Creatinine 0.81 (0.7-1.0) mg/dL Estim Creat Clear Calc 81 ml/min Estimated GFR > 60 (59 - ) Glucose 114 H (65-110) mg/dL POC Capillary Glucose (65-105) mg/dl Hemoglobin A1c 8.3 H (<5.7) % Lactic Acid 2.1 H (0.7-2.0) mmol/L Calcium 9.4 (8.4-10.2) mg/dL Magnesium (1.6-2.3) mg/dL Total Bilirubin 1.0 (0.2-1.3) mg/dL AST 31 (14-36) U/L ALT 30 (6-35) U/L Alkaline Phosphatase 94 (38-126) U/L Troponin I < 0.012 (0.000-0.034) ng/mL C-Reactive Protein 4.6 H (<1.0) mg/dL Total Protein 8.4 H (6.3-8.2) g/dL Albumin 4.1 (3.5-5.1) g/dL Lipase 53 (23-300) U/L TSH (Reflex) (0.465-4.68) uIU/mL Vancomycin Trough (10.0-20.0) ug/mL 09/05/24 09/05/24 09/06/24 Range/Units 21:00 22:22 06:15 WBC (4.5-10.0) K/mm3 RBC (4.2-5.4) M/mm3 Hgb (12.0-15.0) g/dL Hct (37.0-47.0) % MCV (80-100) fl MCH (26-34) pg MCHC (32-36) g/dl RDW (11.5-14.5) % Plt Count (150-375) k/mm3 MPV (7.4-10.4) fl Immature Gran % (Auto) (0-0.5) % Neut % (Auto) (45.5-73.1) % Lymph % (Auto) (18.3-44.2) % [place] % (Auto) (2.6-8.5) % Eos % (Auto) (0-4.4) % Baso % (Auto) (0.2-1.2) % Lymph # (Auto) (0.9-3.2) K/mm3 [place] # (Auto) (0.1-0.6) K/mm3 Eos # (Auto) (0-0.3) K/mm3 Baso # (Auto) (0.0-0.1) K/mm3 Abs Immat Gran (auto) (0.00-0.031) K/mm3 Absolute Neuts (auto) (1.3-6.7) K/mm3 Absolute Nucleated RBC (0.0-0.012) K/mm3 Nucleated RBC % (0.0-0.2) % ESR (0-20) mm/hr PT (11.1-14.7) Seconds INR APTT (22.3-36.8) Seconds Sodium (137-145) mmol/L Potassium (3.4-5.0) mmol/L Chloride (98-107) mmol/L Carbon Dioxide (22-30) mmol/L Anion Gap (4-12) mmol/L BUN (7-17) mg/dL Creatinine 0.77 (0.7-1.0) mg/dL Estim Creat Clear Calc 85 ml/min Estimated GFR > 60 (59 - ) Glucose (65-110) mg/dL POC Capillary Glucose (65-105) mg/dl Hemoglobin A1c (<5.7) % Lactic Acid 1.4 (0.7-2.0) mmol/L Calcium (8.4-10.2) mg/dL Magnesium (1.6-2.3) mg/dL Total Bilirubin (0.2-1.3) mg/dL AST (14-36) U/L ALT (6-35) U/L Alkaline Phosphatase (38-126) U/L Troponin I < 0.012 (0.000-0.034) ng/mL C-Reactive Protein (<1.0) mg/dL Total Protein (6.3-8.2) g/dL Albumin (3.5-5.1) g/dL Lipase (23-300) U/L TSH (Reflex) (0.465-4.68) uIU/mL Vancomycin Trough (10.0-20.0) ug/mL 09/06/24 09/07/24 09/07/24 Range/Units 19:53 04:34 08:26 WBC 13.3 H (4.5-10.0) K/mm3 RBC 4.24 (4.2-5.4) M/mm3 Hgb 11.8 L (12.0-15.0) g/dL Hct 37.0 (37.0-47.0) % MCV 87.3 (80-100) fl MCH 27.8 (26-34) pg MCHC 31.9 L (32-36) g/dl RDW 13.6 (11.5-14.5) % Plt Count 363 (150-375) k/mm3 MPV 8.9 (7.4-10.4) fl Immature Gran % (Auto) (0-0.5) % Neut % (Auto) (45.5-73.1) % Lymph % (Auto) (18.3-44.2) % [place] % (Auto) (2.6-8.5) % Eos % (Auto) (0-4.4) % Baso % (Auto) (0.2-1.2) % Lymph # (Auto) (0.9-3.2) K/mm3 [place] # (Auto) (0.1-0.6) K/mm3 Eos # (Auto) (0-0.3) K/mm3 Baso # (Auto) (0.0-0.1) K/mm3 Abs Immat Gran (auto) (0.00-0.031) K/mm3 Absolute Neuts (auto) (1.3-6.7) K/mm3 Absolute Nucleated RBC (0.0-0.012) K/mm3 Nucleated RBC % (0.0-0.2) % ESR (0-20) mm/hr PT (11.1-14.7) Seconds INR APTT (22.3-36.8) Seconds Sodium 135 L (137-145) mmol/L Potassium 3.6 (3.4-5.0) mmol/L Chloride 102 (98-107) mmol/L Carbon Dioxide 27 (22-30) mmol/L Anion Gap 6 (4-12) mmol/L BUN 11 (7-17) mg/dL Creatinine 0.88 (0.7-1.0) mg/dL Estim Creat Clear Calc 77 ml/min Estimated GFR > 60 (59 - ) Glucose 137 H (65-110) mg/dL POC Capillary Glucose 119 H 125 H (65-105) mg/dl Hemoglobin A1c (<5.7) % Lactic Acid (0.7-2.0) mmol/L Calcium 8.8 (8.4-10.2) mg/dL Magnesium 1.9 (1.6-2.3) mg/dL Total Bilirubin (0.2-1.3) mg/dL AST (14-36) U/L ALT (6-35) U/L Alkaline Phosphatase (38-126) U/L Troponin I (0.000-0.034) ng/mL C-Reactive Protein (<1.0) mg/dL Total Protein (6.3-8.2) g/dL Albumin (3.5-5.1) g/dL Lipase (23-300) U/L TSH (Reflex) 3.500 (0.465-4.68) uIU/mL Vancomycin Trough (10.0-20.0) ug/mL 09/07/24 Range/Units 08:52 WBC (4.5-10.0) K/mm3 RBC (4.2-5.4) M/mm3 Hgb (12.0-15.0) g/dL Hct (37.0-47.0) % MCV (80-100) fl MCH (26-34) pg MCHC (32-36) g/dl RDW (11.5-14.5) % Plt Count (150-375) k/mm3 MPV (7.4-10.4) fl Immature Gran % (Auto) (0-0.5) % Neut % (Auto) (45.5-73.1) % Lymph % (Auto) (18.3-44.2) % [place] % (Auto) (2.6-8.5) % Eos % (Auto) (0-4.4) % Baso % (Auto) (0.2-1.2) % Lymph # (Auto) (0.9-3.2) K/mm3 [place] # (Auto) (0.1-0.6) K/mm3 Eos # (Auto) (0-0.3) K/mm3 Baso # (Auto) (0.0-0.1) K/mm3 Abs Immat Gran (auto) (0.00-0.031) K/mm3 Absolute Neuts (auto) (1.3-6.7) K/mm3 Absolute Nucleated RBC (0.0-0.012) K/mm3 Nucleated RBC % (0.0-0.2) % ESR (0-20) mm/hr PT (11.1-14.7) Seconds INR APTT (22.3-36.8) Seconds Sodium (137-145) mmol/L Potassium (3.4-5.0) mmol/L Chloride (98-107) mmol/L Carbon Dioxide (22-30) mmol/L Anion Gap (4-12) mmol/L BUN (7-17) mg/dL Creatinine (0.7-1.0) mg/dL Estim Creat Clear Calc ml/min Estimated GFR (59 - ) Glucose (65-110) mg/dL POC Capillary Glucose (65-105) mg/dl Hemoglobin A1c (<5.7) % Lactic Acid (0.7-2.0) mmol/L Calcium (8.4-10.2) mg/dL Magnesium (1.6-2.3) mg/dL Total Bilirubin (0.2-1.3) mg/dL AST (14-36) U/L ALT (6-35) U/L Alkaline Phosphatase (38-126) U/L Troponin I (0.000-0.034) ng/mL C-Reactive Protein (<1.0) mg/dL Total Protein (6.3-8.2) g/dL Albumin (3.5-5.1) g/dL Lipase (23-300) U/L TSH (Reflex) (0.465-4.68) uIU/mL Vancomycin Trough 14.9 (10.0-20.0) ug/mL <Rachid Joshi MD - Last Filed: 09/06/24 06:40> Lab Results 09/05/24 09/05/24 09/05/24 Range/Units 17:05 17:06 19:20 WBC 11.7 H (4.5-10.0) K/mm3 RBC 4.64 (4.2-5.4) M/mm3 Hgb 12.7 (12.0-15.0) g/dL Hct 39.9 (37.0-47.0) % MCV 86.0 (80-100) fl MCH 27.4 (26-34) pg MCHC 31.8 L (32-36) g/dl RDW 13.7 (11.5-14.5) % Plt Count 382 H (150-375) k/mm3 MPV 9.3 (7.4-10.4) fl Immature Gran % (Auto) 1.7 H (0-0.5) % Neut % (Auto) 61.8 (45.5-73.1) % Lymph % (Auto) 26.3 (18.3-44.2) % [place] % (Auto) 8.7 H (2.6-8.5) % Eos % (Auto) 0.9 (0-4.4) % Baso % (Auto) 0.6 (0.2-1.2) % Lymph # (Auto) 3.09 (0.9-3.2) K/mm3 [place] # (Auto) 1.0 H (0.1-0.6) K/mm3 Eos # (Auto) 0.1 (0-0.3) K/mm3 Baso # (Auto) 0.1 (0.0-0.1) K/mm3 Abs Immat Gran (auto) 0.20 H (0.00-0.031) K/mm3 Absolute Neuts (auto) 7.3 H (1.3-6.7) K/mm3 Absolute Nucleated RBC 0.000 (0.0-0.012) K/mm3 Nucleated RBC % 0.0 (0.0-0.2) % ESR 21 H (0-20) mm/hr PT 16.1 H (11.1-14.7) Seconds INR 1.3 APTT 29.9 (22.3-36.8) Seconds Sodium 137 (137-145) mmol/L Potassium 3.7 (3.4-5.0) mmol/L Chloride 102 (98-107) mmol/L Carbon Dioxide 27 (22-30) mmol/L Anion Gap 8 (4-12) mmol/L BUN 13 (7-17) mg/dL Creatinine 0.81 (0.7-1.0) mg/dL Estim Creat Clear Calc 81 ml/min Estimated GFR > 60 (59 - ) Glucose 114 H (65-110) mg/dL POC Capillary Glucose (65-105) mg/dl Hemoglobin A1c 8.3 H (<5.7) % Lactic Acid 2.1 H (0.7-2.0) mmol/L Calcium 9.4 (8.4-10.2) mg/dL Magnesium (1.6-2.3) mg/dL Total Bilirubin 1.0 (0.2-1.3) mg/dL AST 31 (14-36) U/L ALT 30 (6-35) U/L Alkaline Phosphatase 94 (38-126) U/L Troponin I < 0.012 (0.000-0.034) ng/mL C-Reactive Protein 4.6 H (<1.0) mg/dL Total Protein 8.4 H (6.3-8.2) g/dL Albumin 4.1 (3.5-5.1) g/dL Lipase 53 (23-300) U/L TSH (Reflex) (0.465-4.68) uIU/mL Vancomycin Trough (10.0-20.0) ug/mL 09/05/24 09/05/24 09/06/24 Range/Units 21:00 22:22 06:15 WBC (4.5-10.0) K/mm3 RBC (4.2-5.4) M/mm3 Hgb (12.0-15.0) g/dL Hct (37.0-47.0) % MCV (80-100) fl MCH (26-34) pg MCHC (32-36) g/dl RDW (11.5-14.5) % Plt Count (150-375) k/mm3 MPV (7.4-10.4) fl Immature Gran % (Auto) (0-0.5) % Neut % (Auto) (45.5-73.1) % Lymph % (Auto) (18.3-44.2) % [place] % (Auto) (2.6-8.5) % Eos % (Auto) (0-4.4) % Baso % (Auto) (0.2-1.2) % Lymph # (Auto) (0.9-3.2) K/mm3 [place] # (Auto) (0.1-0.6) K/mm3 Eos # (Auto) (0-0.3) K/mm3 Baso # (Auto) (0.0-0.1) K/mm3 Abs Immat Gran (auto) (0.00-0.031) K/mm3 Absolute Neuts (auto) (1.3-6.7) K/mm3 Absolute Nucleated RBC (0.0-0.012) K/mm3 Nucleated RBC % (0.0-0.2) % ESR (0-20) mm/hr PT (11.1-14.7) Seconds INR APTT (22.3-36.8) Seconds Sodium (137-145) mmol/L Potassium (3.4-5.0) mmol/L Chloride (98-107) mmol/L Carbon Dioxide (22-30) mmol/L Anion Gap (4-12) mmol/L BUN (7-17) mg/dL Creatinine 0.77 (0.7-1.0) mg/dL Estim Creat Clear Calc 85 ml/min Estimated GFR > 60 (59 - ) Glucose (65-110) mg/dL POC Capillary Glucose (65-105) mg/dl Hemoglobin A1c (<5.7) % Lactic Acid 1.4 (0.7-2.0) mmol/L Calcium (8.4-10.2) mg/dL Magnesium (1.6-2.3) mg/dL Total Bilirubin (0.2-1.3) mg/dL AST (14-36) U/L ALT (6-35) U/L Alkaline Phosphatase (38-126) U/L Troponin I < 0.012 (0.000-0.034) ng/mL C-Reactive Protein (<1.0) mg/dL Total Protein (6.3-8.2) g/dL Albumin (3.5-5.1) g/dL Lipase (23-300) U/L TSH (Reflex) (0.465-4.68) uIU/mL Vancomycin Trough (10.0-20.0) ug/mL 09/06/24 09/07/24 09/07/24 Range/Units 19:53 04:34 08:26 WBC 13.3 H (4.5-10.0) K/mm3 RBC 4.24 (4.2-5.4) M/mm3 Hgb 11.8 L (12.0-15.0) g/dL Hct 37.0 (37.0-47.0) % MCV 87.3 (80-100) fl MCH 27.8 (26-34) pg MCHC 31.9 L (32-36) g/dl RDW 13.6 (11.5-14.5) % Plt Count 363 (150-375) k/mm3 MPV 8.9 (7.4-10.4) fl Immature Gran % (Auto) (0-0.5) % Neut % (Auto) (45.5-73.1) % Lymph % (Auto) (18.3-44.2) % [place] % (Auto) (2.6-8.5) % Eos % (Auto) (0-4.4) % Baso % (Auto) (0.2-1.2) % Lymph # (Auto) (0.9-3.2) K/mm3 [place] # (Auto) (0.1-0.6) K/mm3 Eos # (Auto) (0-0.3) K/mm3 Baso # (Auto) (0.0-0.1) K/mm3 Abs Immat Gran (auto) (0.00-0.031) K/mm3 Absolute Neuts (auto) (1.3-6.7) K/mm3 Absolute Nucleated RBC (0.0-0.012) K/mm3 Nucleated RBC % (0.0-0.2) % ESR (0-20) mm/hr PT (11.1-14.7) Seconds INR APTT (22.3-36.8) Seconds Sodium 135 L (137-145) mmol/L Potassium 3.6 (3.4-5.0) mmol/L Chloride 102 (98-107) mmol/L Carbon Dioxide 27 (22-30) mmol/L Anion Gap 6 (4-12) mmol/L BUN 11 (7-17) mg/dL Creatinine 0.88 (0.7-1.0) mg/dL Estim Creat Clear Calc 77 ml/min Estimated GFR > 60 (59 - ) Glucose 137 H (65-110) mg/dL POC Capillary Glucose 119 H 125 H (65-105) mg/dl Hemoglobin A1c (<5.7) % Lactic Acid (0.7-2.0) mmol/L Calcium 8.8 (8.4-10.2) mg/dL Magnesium 1.9 (1.6-2.3) mg/dL Total Bilirubin (0.2-1.3) mg/dL AST (14-36) U/L ALT (6-35) U/L Alkaline Phosphatase (38-126) U/L Troponin I (0.000-0.034) ng/mL C-Reactive Protein (<1.0) mg/dL Total Protein (6.3-8.2) g/dL Albumin (3.5-5.1) g/dL Lipase (23-300) U/L TSH (Reflex) 3.500 (0.465-4.68) uIU/mL Vancomycin Trough (10.0-20.0) ug/mL 09/07/24 Range/Units 08:52 WBC (4.5-10.0) K/mm3 RBC (4.2-5.4) M/mm3 Hgb (12.0-15.0) g/dL Hct (37.0-47.0) % MCV (80-100) fl MCH (26-34) pg MCHC (32-36) g/dl RDW (11.5-14.5) % Plt Count (150-375) k/mm3 MPV (7.4-10.4) fl Immature Gran % (Auto) (0-0.5) % Neut % (Auto) (45.5-73.1) % Lymph % (Auto) (18.3-44.2) % [place] % (Auto) (2.6-8.5) % Eos % (Auto) (0-4.4) % Baso % (Auto) (0.2-1.2) % Lymph # (Auto) (0.9-3.2) K/mm3 [place] # (Auto) (0.1-0.6) K/mm3 Eos # (Auto) (0-0.3) K/mm3 Baso # (Auto) (0.0-0.1) K/mm3 Abs Immat Gran (auto) (0.00-0.031) K/mm3 Absolute Neuts (auto) (1.3-6.7) K/mm3 Absolute Nucleated RBC (0.0-0.012) K/mm3 Nucleated RBC % (0.0-0.2) % ESR (0-20) mm/hr PT (11.1-14.7) Seconds INR APTT (22.3-36.8) Seconds Sodium (137-145) mmol/L Potassium (3.4-5.0) mmol/L Chloride (98-107) mmol/L Carbon Dioxide (22-30) mmol/L Anion Gap (4-12) mmol/L BUN (7-17) mg/dL Creatinine (0.7-1.0) mg/dL Estim Creat Clear Calc ml/min Estimated GFR (59 - ) Glucose (65-110) mg/dL POC Capillary Glucose (65-105) mg/dl Hemoglobin A1c (<5.7) % Lactic Acid (0.7-2.0) mmol/L Calcium (8.4-10.2) mg/dL Magnesium (1.6-2.3) mg/dL Total Bilirubin (0.2-1.3) mg/dL AST (14-36) U/L ALT (6-35) U/L Alkaline Phosphatase (38-126) U/L Troponin I (0.000-0.034) ng/mL C-Reactive Protein (<1.0) mg/dL Total Protein (6.3-8.2) g/dL Albumin (3.5-5.1) g/dL Lipase (23-300) U/L TSH (Reflex) (0.465-4.68) uIU/mL Vancomycin Trough 14.9 (10.0-20.0) ug/mL <Chastity Darling MD - Last Filed: 09/07/24 17:08> Imaging Data Radiologist's impression: ITS Impressions Chest X-Ray 09/05/24 17:25 IMPRESSION: No focal infiltrate or effusion. <Evon Rao PA-C - Last Filed: 09/06/24 17:52> ECG Data EKG #1: ECG completion date: 09/05/24 <Evon Rao PA-C - Last Filed: 09/06/24 17:52> EKG Interpretation: normal rate, sinus rhythm, no ST changes and normal QT <Evon Rao PA-C - Last Filed: 09/06/24 17:52> Critical Care Time Critical Care Time Critical Care Time: No <Evon Rao PA-C - Last Filed: 09/06/24 17:52> Discharge Plan Discharge Clinical Impression: Cellulitis Qualifiers: Site of cellulitis: extremity Site of cellulitis of extremity: lower extremity Laterality: left Qualified Code(s): L03.116 - Cellulitis of left lower limb <Evon Rao PA-C - Last Filed: 09/06/24 17:52> Patient Disposition: Still a Patient <Evon Rao PA-C - Last Filed: 09/06/24 17:52> Condition: Stable <Evon Rao PA-C - Last Filed: 09/06/24 17:52>
--- NOTE | 2024-09-05 18:55 | PC.NURSE ---
attempted to draw lab work and blood cultures, unsuccessfully- spoke with charge gang weigher that multiple attempts were made from multiple people- charge gang weigher contacting phlebotomy to draw labs
[2024-09-05] MEDS: CEFEPIME 2 GM in SODIUM CHLORIDE 0.9% IV 50 ML 100 ML IVPB (19:53)
[2024-09-05] MEDS: HYDROcodone/acetaminophen (*CRX) 5-325 MG TABLET 1 TAB PO (20:05)
[2024-09-05] MEDS: SODIUM CHLORIDE 0.9% IV 1,000 ML 999 ML IV CONT (20:05)
[2024-09-05 20:08] LABS: Alanine Aminotransferase 30 U/L (6-35); Albumin Level 4.1 g/dL (3.5-5.1); Alkaline Phosphatase 94 U/L (38-126); Anion Gap 8 mmol/L (4-12); Aspartate Amino Transferase 31 U/L (14-36); Bilirubin,Total 1.0 mg/dL (0.2-1.3); Blood Urea Nitrogen 13 mg/dL (7-17); CRP 4.6 mg/dL (<1.0); Calcium 9.4 mg/dL (8.4-10.2); Carbon Dioxide 27 mmol/L (22-30); Chloride 102 mmol/L (98-107); Estimated CRCL calculation 81 ml/min; Estimated Glomerular Filt Rate > 60; Glucose 114 mg/dL (65-110); Lipase 53 U/L (23-300); Potassium 3.7 mmol/L (3.4-5.0); Sodium 137 mmol/L (137-145); Total Protein 8.4 g/dL (6.3-8.2)
[2024-09-05 20:12] LABS: Troponin I < 0.012 ng/mL (0.000-0.034)
[2024-09-05] MEDS: metroNIDAZOLE 500 MG/ISO 100ML 500 MG/100 ML BAG 100 MG IVPB (20:12)
--- NOTE | 2024-09-05 20:31 | ECG_ITS ---
Test Date: 2024-09-05 20:40:43 Measurements Intervals [place] Rate: 87 P: 38 GA: 135 QRS: -17 QRSD: 89 T: -4 QT: 365 QTc: 441 Interpretive Statements SINUS RHYTHM POSSIBLE OLD INFERIOR INFARCT Compared to ECG 09/05/2024 16:51:49 No significant changes Electronically Signed On 09-06-2024 16:38:12 CDT by Tal Barros M.D.
[2024-09-05 21:43] LABS: Troponin I < 0.012 ng/mL (0.000-0.034)
[2024-09-05] MEDS: VANCOMYCIN 1,250 MG/NS 250 ML 1,250 MG/250 ML BAG 166.67 MG IVPB (22:14)
[2024-09-06] VITALS (18 sets, daily range): BP systolic 109–150; BP diastolic 68–96; PULSE 78–106; RESP 14–22; TEMP 36.3–37.3; O2SAT 93–100; BMI 34.3
[2024-09-06] MEDS: ACETAMINOPHEN 325 MG TABLET 650 MG PO (00:12)
[2024-09-06] MEDS: oxyCODONE HCL (*CRX) 5 MG TAB IR PO (00:12)
[2024-09-06] MEDS: VANCOMYCIN 1,250 MG/NS 250 ML 1,250 MG/250 ML BAG 166.67 MG IVPB (00:30)
--- NOTE | 2024-09-06 01:05 | PC.NURSE ---
This RN called [facility] and gave report to Chloe. ([phone])
--- NOTE | 2024-09-06 02:00 | PC.NURSE ---
Pt called out to RN and stated that she feels itchy. This RN stopped pt Vancomycin antibiotic. EDP notified. 0.5 mL of Benadryl ordered and given. No rash noted.
[2024-09-06] MEDS: metroNIDAZOLE 500 MG/ISO 100ML 500 MG/100 ML BAG 100 MG IVPB ×3 (05:12→20:22)
[2024-09-06 06:40] LABS: Estimated CRCL calculation 85 ml/min; Estimated Glomerular Filt Rate > 60
[2024-09-06] MEDS: HYDROcodone/acetaminophen (*CRX) 5-325 MG TABLET 1 TAB PO (07:53)
[2024-09-06] MEDS: CEFEPIME 2 GM in SODIUM CHLORIDE 0.9% IV 50 ML 100 ML IVPB ×2 (09:01→20:23)
[2024-09-06] MEDS: LEVOTHYROXINE SODIUM 88 MCG TABLET PO (09:03)
--- NOTE | 2024-09-06 09:30 | PC.NURSE ---
[facility] transfer center called for updates. states no beds available at this time and is still on the waitlist.
[2024-09-06] MEDS: HYDROmorphone HCL INJ (*CRX) 2 MG/ML VIAL 1 MG IV PUSH ×3 (09:35→17:46)
[2024-09-06] MEDS: VANCOMYCIN 1,500 MG/NS 500 ML 1,500 MG/500 ML BAG 250 MG IVPB ×2 (09:37→21:55)
[2024-09-06] MEDS: GABAPENTIN 300 MG CAPSULE PO ×3 (09:38→18:27)
[2024-09-06] MEDS: FUROSEMIDE 40 MG TABLET PO (09:38)
[2024-09-06] MEDS: VERAPAMIL HCL ER 240 MG TABLET.ER PO ×2 (10:46→18:27)
[2024-09-06] MEDS: SPIRONOLACTONE 25 MG TABLET PO (10:46)
--- NOTE | 2024-09-06 18:04 | PC.NURSE ---
pt states she would prefer to take her evening medications after dinner. pt currently eating meal at this time.
[2024-09-06] MEDS: RIVAROXABAN 20 MG TABLET PO (18:27)
--- NOTE | 2024-09-06 19:15 | P.HP_ITS ---
H&P: HPI History of Present Illness Date/Time: 09/06/24 19:15 Chief Complaint: Worsening painful leg ulcers. Narrative: This is a very pleasant 63-year-old female with history of rheumatoid arthritis, erythema nodosum, Graves disease status post radioactive iodine ablation,, type 2 diabetes mellitus, pulmonary hypertension, pulmonary embolism, obstructive sleep apnea, ulcers, and gastroesophageal reflux disease who presented to the emergency department yesterday afternoon for evaluation of worsening painful leg ulcers. Earlier this year she developed painful nodules on her legs and she was diagnosed with erythema nodosum. More recently they have started to open up and are now forming painful ulcers. She saw her primary care provider last week and was started on doxycycline and she was referred to a labor relations teacher, Dr. Marisol Sahu, and [place]. The patient received intralesional corticosteroid injection which does not seem to be helping. In fact, the ulcers are expanding in size and number and they are becoming more painful. She describes a hot, burning like pain. She is otherwise feeling okay and denies fever, chills, sweats, nausea, and vomiting. She has not had any injury or trauma at the sites. No claudication or known vascular disease. No history of multidrug resistant organisms. In the ED: Blood pressure was 171/90 on arrival. The remainder of her vital signs were stable. She has been afebrile. Labs were significant for WBC count of 11.7, lactic acid 2.1, glucose 114, CRP 4.6. Transfer was initiated to tertiary care for dermatology consultation due to concerns for pyoderma g angrenosum. She has been accepted at both facilities however they do not anticipate having a bed for several days. Recommendations were given to start broad-spectrum antibiotics and to obtain wound cultures. There were no recommendations to start steroids at this time. She has now been in the emergency department for 24 hours and is being admitted to the hospital in this setting, pending bed availability. Review of Systems Review of Systems: 12 systems were reviewed and are negativ e except for as per HPI. [facility] Past Medical History Medical History (Updated 09/06/24 @ 22:40 by Carline Mayes PA-C) Chronic anticoagulation Hypertension Postablative hypothyroidism Peptic ulcer Gastroesophageal reflux disease Obstructive sleep apnea Type 2 diabetes mellitus Graves disease Rheumatoid arthritis Status post radioactive iodine ablation Pulmonary hypertension Pulmonary embolism Surgical History Surgical History (Updated 07/22/25 @ 22:33 by Carline Mayes PA-C) History of cervical spinal surgery History of cholecystectomy Family History Family History Mother Rheumatoid arthritis Anemia Cerebrovascular accident Father Pancreatitis Osteoarthritis Sibling Heart failure Heart transplant recipient Diabetes mellitus Osteoarthritis Crohn disease Social History Social History (Updated 09/06/24 @ 22:33 by Carline Mayes PA-C) Social History: Surrogate medical decision maker: Abhijit Turner, spouse. Code status: Full code. Smoking status: Former smoker Do You Feel Safe in your Home?: Yes Lack of Transportation: No Lack of Food: Never True Current Housing: I Have Housing Concerned About Future Housing: No Difficulty Paying Gas/Electric Bills: No Difficulty Paying for Meds: No Currently Unemployed: No Education: Bachelor's Degree Difficulty w/ Childcare or Family Care: No Spiritual care concerns: No Meds Home Medications and Allergies Home Medications ?Medication ?Instructions ?Recorded ?Confirmed ?Type albuterol sulfate 90 mcg/actuation 2 puff inhalation Q4-6H PRN 10/19/19 09/06/24 History aerosol inhaler shortness of breath or wheezing folic acid 1 mg tablet 1 mg PO DAILY 10/19/19 09/06/24 History furosemide 40 mg tablet 40 mg PO DAILY 10/19/19 09/06/24 History hydrocodone 5 mg-acetaminophen 325 1 - 2 tablet PO BID PRN pain 10/19/19 09/06/24 History mg tablet levothyroxine 88 mcg tablet 88 mcg PO DAILY 10/19/19 09/06/24 History metformin 500 mg tablet 1,000 mg PO .complex 10/19/19 09/06/24 History rivaroxaban 20 mg tablet (Xarelto) 20 mg PO HS 10/19/19 09/06/24 History rosuvastatin 10 mg tablet 10 mg PO WEEKLY 10/19/19 09/06/24 History triamcinolone acetonide 0.1 % 1 applic topical QID PRN dry skin 10/19/19 09/06/24 History topical ointment umeclidinium 62.5 mcg-vilanterol 1 inh inhalation BID 10/19/19 09/06/24 History 25 mcg/actuation powdr for inhalation (Anoro Ellipta) verapamil 240 mg tablet,extended 240 mg PO BID 10/19/19 09/06/24 History release spironolactone 25 mg tablet 12.5 mg PO DAILY 01/24/24 09/06/24 History vibegron 75 mg tablet (Gemtesa) 75 mg PO HS 01/24/24 09/06/24 History famotidine 20 mg tablet 20 mg PO HS 09/06/24 09/06/24 History Allergies Allergy/AdvReac Type Severity Reaction Status Date / Time levofloxacin Allergy Severe LIGAMENT Verified 09/06/24 20:00 DAMAGE, AND TENDON DAMAGE simvastatin Allergy Intermediate Other Verified 09/06/24 20:00 ciprofloxacin Allergy Mild Unknown Verified 09/06/24 20:00 lisinopril Allergy Unknown Unknown Verified 09/06/24 20:00 Vital Signs Vital Signs - 24 hr 09/05/24 20:31 09/05/24 20:51 09/05/24 21:00 Temperature Pulse Rate 93 90 91 Respiratory Rate 16 18 20 Blood Pressure Pulse Oximetry 99 95 99 09/05/24 22:05 09/05/24 22:45 09/05/24 23:01 Temperature Pulse Rate 84 86 84 Respiratory Rate 16 19 16 Blood Pressure 151/89 H Pulse Oximetry 100 100 98 09/05/24 23:30 09/06/24 00:02 09/06/24 00:46 Temperature 98.1 F Pulse Rate 82 106 H 84 Respiratory Rate 17 22 H 20 Blood Pressure 141/96 H 132/89 Pulse Oximetry 99 95 09/06/24 01:31 09/06/24 03:50 09/06/24 04:00 Temperature Pulse Rate 85 83 78 Respiratory Rate 14 21 H 22 H Blood Pressure 109/94 H Pulse Oximetry 99 99 97 09/06/24 04:15 09/06/24 04:30 09/06/24 04:45 Temperature Pulse Rate 88 85 82 Respiratory Rate 19 21 H 19 Blood Pressure Pulse Oximetry 98 98 97 09/06/24 05:00 09/06/24 05:15 09/06/24 05:30 Temperature Pulse Rate 85 95 100 Respiratory Rate 21 H 19 20 Blood Pressure Pulse Oximetry 97 96 95 09/06/24 06:04 09/06/24 07:42 09/06/24 09:44 Temperature 97.9 F Pulse Rate 92 91 94 Respiratory Rate 18 17 14 Blood Pressure 144/89 H 150/94 H 140/80 Pulse Oximetry 96 98 95 09/06/24 15:57 09/06/24 17:51 Temperature Pulse Rate 92 92 Respiratory Rate 20 20 Blood Pressure 128/87 133/76 Pulse Oximetry 93 100 Exam Narrative: General: Well-developed, nontoxic-appearing female sitting up in bed in no distress. Weight: 107 kg. BMI: 34.3. HEENT: PERRL, EOMI. Sclera anicteric. Oral mucosa moist. Neck: Supple. Respiratory: Lungs are clear to auscultation bilaterally. Cardiovascular: Regular rate and rhythm with S1-S2. Gastrointestinal: Abdomen is soft, nontender, and nondistended with positive bowel sounds. Skin: Warm and dry. Several ulcerated lesions in varying sizes clustered around the medial and anterolateral left lower leg. The wound bases appear nodular with some erythema and scattered yellowish/green slough. There are smaller clusters over left 3rd and 4th the metatarsophalangeal joints with similar ulcerations on the right but to a lesser extent. There is a painful, tender nodule on the left lateral calf. The tissue surrounding these ulcers are erythematous and slightly warm. Extremities: No cyanosis, clubbing, or significant edema. Radial and pedal pu lses are strong. Neurological: Alert. Cranial nerves grossly intact No gross focal deficits to casual conversation. Psychiatric: Pleasant and cooperative with normal mood and affect. Judgment and insight intact. H&P: Results Labs Labs: BMP 09/05/24 09/06/24 19:20 06:15 Sodium 137 Potassium 3.7 Chloride 102 Carbon Dioxide 27 BUN 13 Creatinine 0.81 0.77 Glucose 114 H Calcium 9.4 Cardiac Enzymes 09/05/24 09/05/24 Range/Units 19:20 21:00 Troponin I < 0.012 < 0.012 (0.000-0.034) ng/mL Liver Function 09/05/24 Range/Units 19:20 Total Bilirubin 1.0 (0.2-1.3) mg/dL AST 31 (14-36) U/L ALT 30 (6-35) U/L Alkaline Phosphatase 94 (38-126) U/L Albumin 4.1 (3.5-5.1) g/dL Assessment and Plan Assessment and plan (1) Pyoderma gangrenosum: Code(s): L88 - Pyoderma gangrenosum Status: Acute (2) Cellulitis: Qualifiers: Laterality: left Site of cellulitis: extremity Site of cellulitis of extremity: lower extremity Qualified Code(s): L03.116 - Cellulitis of left lower limb Code(s): L03.90 - Cellulitis, unspecified Status: Acute (3) Type 2 diabetes mellitus: Code(s): E11.9 - Type 2 diabetes mellitus without complications Status: Acute (4) Rheumatoid arthritis: Code(s): M06.9 - Rheumatoid arthritis, unspecified Status: Acute (5) Postablative hypothyroidism: Code(s): E89.0 - Postprocedural hypothyroidism Status: Acute (6) Hypertension: Code(s): I10 - Essential (primary) hypertension Status: Acute (7) Chronic anticoagulation: Code(s): Z79.01 - director long term care (current) use of anticoagulants Status: Acute Plan The patient presented to the emergency department for evaluation of increasing size and number of ulcerated lesion on the lower legs and feet as detailed in HPI. Labs, imaging, EKG, and all reports were personally reviewed. She has previously been diagnosed with erythema nodosum, likely related to her autoimmune disease. 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 Transfer has been initiated to tertiary care for dermatology consultation. No bed is yet available and she is being admitted to the floor pending bed availability. Attempts were made to call her labor relations teacher however this was unfortunately after hours and it would be prudent to call again tomorrow to see if she has any further recommendations. Continue cefepime and vancomycin started in the emergency department for possible concomitant cellulitis. There were no recommendations to start steroids at this time although she did recently receive intralesional corticosteroid injections. Her blood pressures were reviewed and they have been stable. Initiate sliding scale insulin, Accu-Cheks, and hypoglycemic protocol. Check hemoglobin A1c. Continue levothyroxine check TSH. Continue Xarelto for history of PE. The rest of her home medications will be reviewed and resumed as appropriate. Findings and treatment plan were discussed with the patient and her at bedside. Questions were solicited and answered to satisfaction. The patient's medical management will be taken over by the hospitalist team in a.m. Quality VTE Prophylaxis VTE prophylaxis: pharmacologic ordered (On Xarelto) The patient has been admitted under observation status. Hospitalist [facility] Advance Care Plan I have confirmed that the patient's Advanced Care Plan is present, code status is documented, or surrogate decision maker is listed in patient medical record.: Yes Medication Reconciliation I have utilized all available resources to obtain, update and review the patients current medications (includes all prescriptions, OTC, herbals, cannabis, and nutritional supplements).: Yes
--- NOTE | 2024-09-06 19:21 | ADMGEN ---
This patient, Pola Turner, was admitted to 2 Medical Room 251-01. Patient/family oriented to hospital policies and general routines including ID bracelet, bed and alarms, visiting hours, pain management, procedures, bathroom and other care routines, personal items, smoking policy, room service/diet, and visiting hours. Information on how to activate the Rapid Response Team has been discussed. Patient/Family are encouraged to report perceived risks to care and to ask questions if they do not understand what they are told or what they should do.
[2024-09-06] MEDS: FAMOTIDINE 20 MG TABLET PO (20:23)
[2024-09-06 22:58] LABS: Hemoglobin A1C 8.3 % (<5.7)
[2024-09-07 02:00] VITALS: PULSE 90; O2SAT 96
[2024-09-07 03:44] VITALS: BP 121/64; PULSE 83; RESP 16; TEMP 36.6; O2SAT 95
[2024-09-07] MEDS: metroNIDAZOLE 500 MG/ISO 100ML 500 MG/100 ML BAG 100 MG IVPB (04:45)
[2024-09-07 05:13] LABS: Hematocrit 37.0 % (37.0-47.0); Hemoglobin 11.8 g/dL (12.0-15.0); Mean Corpuscular HGB Conc 31.9 g/dl (32-36); Mean Corpuscular Hemoglobin 27.8 pg (26-34); Mean Corpuscular Volume 87.3 fl (80-100); Platelet Count Result 363 k/mm3 (150-375); Red Blood Count 4.24 M/mm3 (4.2-5.4); White Blood Count 13.3 K/mm3 (4.5-10.0)
[2024-09-07 05:30] LABS: Anion Gap 6 mmol/L (4-12); Blood Urea Nitrogen 11 mg/dL (7-17); Calcium 8.8 mg/dL (8.4-10.2); Carbon Dioxide 27 mmol/L (22-30); Chloride 102 mmol/L (98-107); Estimated CRCL calculation 77 ml/min; Estimated Glomerular Filt Rate > 60; Glucose 137 mg/dL (65-110); Magnesium 1.9 mg/dL (1.6-2.3); Potassium 3.6 mmol/L (3.4-5.0); Sodium 135 mmol/L (137-145)
[2024-09-07] MEDS: LEVOTHYROXINE SODIUM 88 MCG TABLET PO (05:51)
[2024-09-07 06:00] LABS: Thyroid Stimulating Hormone Reflex 3.500 uIU/mL (0.465-4.68)
[2024-09-07] MEDS: HYDROmorphone HCL INJ (*CRX) 2 MG/ML VIAL 1 MG IV PUSH ×6 (08:43→23:45)
[2024-09-07] MEDS: VERAPAMIL HCL ER 240 MG TABLET.ER PO ×2 (08:52→18:09)
[2024-09-07] MEDS: CEFEPIME 2 GM in SODIUM CHLORIDE 0.9% IV 50 ML 100 ML IVPB (08:52)
[2024-09-07] MEDS: SPIRONOLACTONE 25 MG TABLET PO (08:52)
[2024-09-07] MEDS: GABAPENTIN 300 MG CAPSULE PO ×3 (09:08→18:06)
[2024-09-07] MEDS: FUROSEMIDE 40 MG TABLET PO (09:09)
[2024-09-07] MEDS: UMECLIDINIUM/VILANTEROL 62.5-25 MCG ELLIPTA 1 PUFF INHALATION (10:14)
[2024-09-07] MEDS: VANCOMYCIN 1,500 MG/NS 500 ML 1,500 MG/500 ML BAG 250 MG IVPB (10:34)
--- NOTE | 2024-09-07 10:50 | P.PNIM_ITS ---
Progress Note: A&P Assessment and Plan (1) Erythema nodosum: Code(s): L52 - Erythema nodosum Status: Acute Assessment and Plan: * I spoke to patients Clinic Manager Dr. Marisol Sahu (office number [phone], [phone]). She reports that patient has erythema nodosum and was scheduled to come in in 5 days for lidocaine injections. Dr. Sahu reports that she follows with Dr. Jeremi López [facility] at [facility]( [phone], option 2, then number 22). * Dr. López returned my call. He stated that they tried patient on Rinvoq in the past but it did not help. Patient can be placed on steroids but may need to look at getting set up on Remicade or a TNF inhibitor. * She has previously been diagnosed with erythema nodosum, likely related to her autoimmune disease. 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 * Transfer has been initiated to tertiary care for dermatology consultation. No bed is yet available and she is being admitted to the floor pending bed availability. * Pain regimen. * Dressing changes per wound care recommendations. * Prednisone 20 mg PO daily. (2) Type 2 diabetes mellitus: Code(s): E11.9 - Type 2 diabetes mellitus without complications Status: Acute Assessment and Plan: * HgbA1C 8.3%. * Metformin 1,000 mg PO qam and 500 mg in the evening. * Accuchecks qid. * Diabetic diet. (3) Chronic anticoagulation: Code(s): Z79.01 - residential (current) use of anticoagulants Status: Acute Assessment and Plan: * Xarelto 20 mg PO daily. * History of PE's and DVT's per patient. (4) Rheumatoid arthritis: Code(s): M06.9 - Rheumatoid arthritis, unspecified Status: Acute Assessment and Plan: * Follows with Spare Hand Carding Dr. Jeremi López at [facility]. (5) Postablative hypothyroidism: Code(s): E89.0 - Postprocedural hypothyroidism Status: Acute Assessment and Plan: * Levothyroxine 88 mcg PO daily. (6) Hypertension: Code(s): I10 - Essential (primary) hypertension Status: Acute Assessment and Plan: * Blood pressure 127/68. * Verapamil 240 mg PO BID, Furosemide 40 mg PO daily, and Spironolactone 12.5 mg PO daily. Subjective Date/time seen: 09/07/24 10:50 Interval history: Patient reports pain in bilateral legs is a 7, constant, aching, and throbbing. Patient denies chest pain, palpitations, headache, dizziness, nausea, or vomiting. I spoke to patients Clinic Manager Dr. Marisol Sahu (office number [phone], [phone]). She reports that patient has erythema nodosum and was scheduled to come in in 5 days for lidocaine injections. Dr. Sahu reports that she follows with Dr. Jeremi López [facility] at [facility]( [phone], option 2, then number 22). Dr. López returned my call. He stated that they tried patient on Rinvoq in the past but it did not help. Patient can be placed on steroids but may need to look at getting set up on Remicade or a TNF inhibitor. Review of Systems Review of Systems: All systems reviewed & are unremarkable except as noted in HPI and below Exam Const: General: uncomfortable Eyes: Sclera: sclerae normal Resp: Effort & Inspection: normal respiratory effort Auscultation: clear to auscultation bilaterally Cardio: Rate: regular rate Rhythm: regular rhythm GI: GI Palp: Yes Soft to palpation Auscultation: normal bowel sounds Skin: Other: Leg dressings in place, wound care just assessed and wrapped. Neuro: Speech: normal speech Extrem: General: no pedal edema Other: Feet are warm pedal pulses are strong. Psych: Mental Status: mental status grossly normal Affect: normal affect Other: Tearful at times Objective Data Vital Signs Vital Signs: Vital Signs - 24 hr 09/06/24 15:57 09/06/24 17:51 09/06/24 19:54 Temperature 99.1 F Pulse Rate 92 92 91 Respiratory Rate 20 20 16 Blood Pressure 128/87 133/76 133/79 Pulse Oximetry 93 100 97 Oxygen Delivery 09/06/24 20:00 09/06/24 22:00 09/07/24 02:00 Temperature 97.4 F L Pulse Rate 94 90 Respiratory Rate 16 Blood Pressure 119/68 Pulse Oximetry 97 96 Oxygen Delivery Room Air CPAP 09/07/24 03:44 Temperature 97.8 F Pulse Rate 83 Respiratory Rate 16 Blood Pressure 121/64 Pulse Oximetry 95 Oxygen Delivery Intake/Output Intake/Output: Intake & Output 09/04/24 09/05/24 09/06/24 09/07/24 23:59 23:59 23:59 23:59 Intake Total 1150 1400 800 Balance 1150 1400 800 Meds/Results Medications: Active Medications Generic Name Dose Route Start Last Admin Trade Name Freq PRN Reason Stop Dose Admin Acetaminophen 1,000 mg 09/06/24 14:15 Acetaminophen 500 Mg Tablet PO Q6H PRN Pain Rated 5 or Less Albuterol 2 puff 09/07/24 07:33 Albuterol Sulfate (*Sp) Aerosol 1 Puff INHALATION Q4-6H PRN shortness of breath or wheezing Dextrose 12.5 gm 09/06/24 22:43 Dextrose 50% 25 Gm/50 Ml Syringe IV PUSH PRN PRN Hypoglycemia Protocol Famotidine 20 mg 09/06/24 21:00 09/06/24 20:23 Famotidine 20 Mg Tablet PO 20 mg BEDTIME ANDRES Administration Furosemide 40 mg 09/06/24 09:00 09/07/24 09:09 Furosemide 40 Mg Tablet PO 40 mg QAM ANDRES Administration Gabapentin 300 mg 09/06/24 09:00 09/07/24 09:08 Gabapentin 300 Mg Capsule PO 300 mg TID ANDRES Administration Glucagon 1 mg 09/06/24 22:43 Glucagon For Inj 1 Mg Vial IM PRN PRN Hypoglycemia Protocol Glucose 15 gm 09/06/24 22:43 Glucose Oral Gel 15 Gm Of Glucse In 37.5 Gm Tube PO PRN PRN Hypoglycemia Protocol Hydromorphone HCl 1 mg 09/06/24 14:15 09/07/24 09:54 Hydromorphone Hcl Inj (*Crx) 2 Mg/Ml Vial IV PUSH 1 mg Q2H PRN Administration Pain Rated 7-10 Vancomycin HCl 1,500 mg in 500 mls @ 250 mls/hr 09/06/24 10:00 09/07/24 10:34 Vancomycin 1,500 Mg/Ns 500 Ml IVPB 250 mls/hr Q12H ANDRES Administration Cefepime HCl 2 gm/ Sodium 50 mls @ 100 mls/hr 09/06/24 08:00 09/07/24 08:52 Chloride IVPB 100 mls/hr Q12H ANDRES Administration Metronidazole 500 mg in 100 mls @ 100 mls/hr 09/06/24 04:00 09/07/24 05:35 Flagyl 500 Mg/Iso Soln 100 Ml IVPB Infused Q8H ANDRES Infusion Dextrose 1,000 mls @ 100 mls/hr 09/06/24 22:43 Dextrose 5% 1,000 Ml IVPB PRN PRN Hypoglycemia Protocol Insulin Aspart 3 - 6 units 09/07/24 08:00 09/07/24 08:34 Insulin Aspart (*Bkc) 100 Units/Ml SUB-Q Not Given TIDWM [facility] Protocol Insulin Aspart 1 - 3 units 09/07/24 21:00 Insulin Aspart (*Bkc) 100 Units/Ml SUB-Q HS [facility] Protocol Levothyroxine Sodium 88 mcg 09/07/24 06:30 09/07/24 05:51 Levothyroxine Sodium 88 Mcg Tablet PO 88 mcg DAILY@0630 [facility] Administration Metformin HCl 1,000 mg 09/07/24 08:00 09/07/24 08:51 Metformin Hcl 500 Mg Tablet PO 1,000 mg DAILY@0800 [facility] Administration Metformin HCl 500 mg 09/06/24 17:00 09/06/24 18:27 Metformin Hcl 500 Mg Tablet PO 500 mg DAILY@1700 [facility] Administration Ondansetron HCl 4 mg 09/06/24 17:47 Ondansetron Inj 4 Mg/2 Ml Vial IV PUSH Q4H PRN Nausea Rivaroxaban 20 mg 09/06/24 17:00 09/06/24 18:27 Rivaroxaban 20 Mg Tablet PO 20 mg DAILY@1700 [facility] Administration Spironolactone 12.5 mg 09/08/24 09:00 Spironolactone 12.5 Mg Tablet PO DAILY [facility] Umeclidinium/Vilanterol 1 puff 09/07/24 08:00 09/07/24 10:14 Umeclidinium/Vilanterol 62.5-25 Mcg Ellipta INHALATION 1 puff DAILYRT [facility] Administration Verapamil HCl 240 mg 09/07/24 08:00 09/07/24 08:52 Verapamil Hcl Er 240 Mg Tablet.Er PO 240 mg DAILY@0800 [facility] Administration Verapamil HCl 240 mg 09/06/24 18:00 09/06/24 18:27 Verapamil Hcl Er 240 Mg Tablet.Er PO 240 mg EVENING [facility] Administration Radiology Results: ITS Impressions Chest X-Ray 09/05/24 17:25 IMPRESSION: No focal infiltrate or effusion. Labs Labs: Laboratory Results - last 24 hr 09/05/24 09/06/24 09/07/24 17:05 19:53 04:34 WBC 13.3 H RBC 4.24 Hgb 11.8 L Hct 37.0 MCV 87.3 MCH 27.8 MCHC 31.9 L RDW 13.6 Plt Count 363 MPV 8.9 Sodium 135 L Potassium 3.6 Chloride 102 Carbon Dioxide 27 Anion Gap 6 BUN 11 Creatinine 0.88 Estim Creat Clear Calc 77 Estimated GFR > 60 Glucose 137 H POC Capillary Glucose 119 H Hemoglobin A1c 8.3 H Calcium 8.8 Magnesium 1.9 TSH (Reflex) 3.500 Vancomycin Trough 09/07/24 09/07/24 08:26 08:52 WBC RBC Hgb Hct MCV MCH MCHC RDW Plt Count MPV Sodium Potassium Chloride Carbon Dioxide Anion Gap BUN Creatinine Estim Creat Clear Calc Estimated GFR Glucose POC Capillary Glucose 125 H Hemoglobin A1c Calcium Magnesium TSH (Reflex) Vancomycin Trough 14.9 Quality VTE Prophylaxis VTE prophylaxis: pharmacologic ordered
[2024-09-07 12:49] VITALS: O2SAT 96
[2024-09-07 14:00] VITALS: BP 127/68; PULSE 91; RESP 16; TEMP 36.8; O2SAT 100
[2024-09-07] MEDS: RIVAROXABAN 20 MG TABLET PO (18:06)
--- NOTE | 2024-09-07 19:21 | PHAR ---
PT'S HOME MED GEMTESA 75 MG TAB VERIFIED BY PHARMACY
[2024-09-07] MEDS: PANTOPRAZOLE 40 MG TABLET PO (20:25)
[2024-09-07] MEDS: GEMTESA 1 EACH PO (20:26)
[2024-09-07 20:51] VITALS: BP 127/79; PULSE 94; RESP 17; TEMP 36.7; O2SAT 99
[2024-09-08 02:43] VITALS: PULSE 88; O2SAT 98
[2024-09-08 05:07] VITALS: BP 112/68; PULSE 64; RESP 17; TEMP 36.6; O2SAT 98
[2024-09-08 05:44] LABS: Hematocrit 37.4 % (37.0-47.0); Hemoglobin 11.8 g/dL (12.0-15.0); Immature Granulocyte Percent A 1.7 % (0-0.5); Lymphocytes Absolute Auto 1.59 K/mm3 (0.9-3.2); Mean Corpuscular HGB Conc 31.6 g/dl (32-36); Mean Corpuscular Hemoglobin 27.1 pg (26-34); Mean Corpuscular Volume 86.0 fl (80-100); Nucleated Red Blood Cells Absolute Auto 0.000 K/mm3 (0.0-0.012); Nucleated Red Blood Cells Perc 0.0 % (0.0-0.2); Platelet Count Result 368 k/mm3 (150-375); Red Blood Count 4.35 M/mm3 (4.2-5.4); White Blood Count 15.0 K/mm3 (4.5-10.0)
[2024-09-08] MEDS: LEVOTHYROXINE SODIUM 88 MCG TABLET PO (06:03)
[2024-09-08 06:04] LABS: Alanine Aminotransferase 32 U/L (6-35); Albumin Level 3.7 g/dL (3.5-5.1); Alkaline Phosphatase 85 U/L (38-126); Anion Gap 8 mmol/L (4-12); Aspartate Amino Transferase 40 U/L (14-36); Bilirubin,Total 0.7 mg/dL (0.2-1.3); Blood Urea Nitrogen 12 mg/dL (7-17); Calcium 9.1 mg/dL (8.4-10.2); Carbon Dioxide 24 mmol/L (22-30); Chloride 99 mmol/L (98-107); Estimated CRCL calculation 85 ml/min; Estimated Glomerular Filt Rate > 60; Glucose 188 mg/dL (65-110); Magnesium 2.0 mg/dL (1.6-2.3); Potassium 4.3 mmol/L (3.4-5.0); Sodium 131 mmol/L (137-145); Total Protein 7.4 g/dL (6.3-8.2)
--- NOTE | 2024-09-08 07:22 | P.TS_ITS ---
Transfer Discharge Sum: Prov Provider Date of admission: 09/07/24 09:21 Primary care physician: PHYSICIAN NOT ON STAFF Admitting clinician: Scot Huston MD Consults: 09/06/24 17:48 Wound/ET Consult Routine Reason for Consult:: wounds DS: Admitting Diagnosis Discharge Date 09/08/24 Admitting Diagnosis Lower extremity pain and ulcers DS: Discharge Diagnosis Discharge Diagnosis (1) Erythema nodosum: Code(s): L52 - Erythema nodosum Status: Acute (2) Type 2 diabetes mellitus: Code(s): E11.9 - Type 2 diabetes mellitus without complications Status: Acute (3) Chronic anticoagulation: Code(s): Z79.01 - intermediate (current) use of anticoagulants Status: Acute (4) Rheumatoid arthritis: Code(s): M06.9 - Rheumatoid arthritis, unspecified Status: Acute (5) Postablative hypothyroidism: Code(s): E89.0 - Postprocedural hypothyroidism Status: Acute (6) Hypertension: Code(s): I10 - Essential (primary) hypertension Status: Acute Transfer Discharge Sum: Med Medications Active and Home Medications: Home Medications albuterol sulfate 90 mcg/actuation aerosol inhaler 2 puff inhalation Q4-6H PRN shortness of breath or wheezing 10/19/19 [History Confirmed 09/06/24] folic acid 1 mg tablet 1 mg PO DAILY 10/19/19 [History Confirmed 09/06/24] furosemide 40 mg tablet 40 mg PO DAILY 10/19/19 [History Confirmed 09/06/24] hydrocodone 5 mg-acetaminophen 325 mg tablet 1 - 2 tablet PO BID PRN pain 10/19/19 [History Confirmed 09/06/24] levothyroxine 88 mcg tablet 88 mcg PO DAILY 10/19/19 [History Confirmed 09/06/24] metformin 500 mg tablet 1,000 mg PO .complex 10/19/19 [History Confirmed 09/06/24] rivaroxaban 20 mg tablet (Xarelto) 20 mg PO HS 10/19/19 [History Confirmed 09/06/24] rosuvastatin 10 mg tablet 10 mg PO WEEKLY 10/19/19 [History Confirmed 09/06/24] triamcinolone acetonide 0.1 % topical ointment 1 applic topical QID PRN dry skin 10/19/19 [History Confirmed 09/06/24] umeclidinium 62.5 mcg-vilanterol 25 mcg/actuation powdr for inhalation (Anoro Ellipta) 1 inh inhalation BID 10/19/19 [History Confirmed 09/06/24] verapamil 240 mg tablet,extended release 240 mg PO BID 10/19/19 [History Confirmed 09/06/24] spironolactone 25 mg tablet 12.5 mg PO DAILY 01/24/24 [History Confirmed 09/06/24] vibegron 75 mg tablet (Gemtesa) 75 mg PO HS 01/24/24 [History Confirmed 09/06/24] famotidine 20 mg tablet 20 mg PO HS 09/06/24 [History Confirmed 09/06/24] Transfer Discharge Sum: Hosp Hospital Course Hospital course: Pola Turner is a 63 year old female # Erythema nodosum: * Previous provider Spoke to patients Machine Chain Maker Dr. Marisol Sahu (office number [phone], [phone]). She reports that patient has erythema nodosum and was scheduled to come in in 5 days for lidocaine injections. Dr. Sahu reports that she follows with Dr. Jeremi López Plastic Cablemaking Machine Operator at [facility]( [phone], option 2, then number 22). * Dr. López returned my call. He stated that they tried patient on Rinvoq in the past but it did not help. Patient can be placed on steroids but may need to look at getting set up on Remicade or a TNF inhibitor. * She has previously been diagnosed with erythema nodosum, likely related to her autoimmune disease. 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 * Transfer has been initiated to tertiary care for dermatology consultation. No bed is yet available and she is being admitted to the floor pending bed availability. * Pain regimen. Will increase gabapentin to 400 mg 3 times a day * Dressing changes per wound care recommendations. * Prednisone 20 mg PO daily. Increase prednisone to 40 mg daily * # Type 2 diabetes mellitus: * HgbA1C 8.3%. * Metformin 1,000 mg PO qam and 500 mg in the evening. * Accuchecks qid. * Diabetic diet. # Chronic anticoagulation: * Xarelto 20 mg PO daily. * History of PE's and DVT's per patient. # Rheumatoid arthritis: * Follows with Plastic Cablemaking Machine Operator Dr. Jeremi López at [facility]. # Postablative hypothyroidism: * Levothyroxine 88 mcg PO daily. # Hypertension: * Verapamil 240 mg PO BID, Furosemide 40 mg PO daily, and Spironolactone 12.5 mg PO daily. Patient Condition: Stable Time Spent with Patient Time attestation: Total time spent providing and/or coordinating transfer services: 35 minutes Exam Narrative: General: Well-developed, nontoxic-appearing female sitting up in bed in no distress. HEENT: PERRL, EOMI. Sclera anicteric. Oral mucosa moist. Neck: Supple. Respiratory: Lungs are clear to auscultation bilaterally. Cardiovascular: Regular rate and rhythm with S1-S2. Gastrointestinal: Abdomen is soft, nontender, and nondistended with positive bowel sounds. Skin: Warm and dry. Several ulcerated lesions in varying sizes clustered around the medial and anterolateral left lower leg. The wound bases appear nodular with some erythema and scattered yellowish/green slough. There are smaller clusters over left 3rd and 4th the metatarsophalangeal joints with similar ulcerations on the right but to a lesser extent. There is a painful, tender nodule on the left lateral calf. The tissue surrounding these ulcers are erythematous and slightly warm. Extremities: No cyanosis, clubbing, or significant edema. Radial and pedal pulses are strong. Neurological: Alert. Cranial nerves grossly intact No gross focal deficits to casual conversation. Psychiatric: Pleasant and cooperative with normal mood and affect. Judgment and insight intact. DS: Data Data Completed and Pending Labs on day of discharge: Labs from last 24 hours 09/08/24 09/08/24 09/08/24 19:52 16:54 11:49 POC Capillary Glucose 268 H 204 H 209 H 09/08/24 07:43 POC Capillary Glucose 151 H Preliminary micro results at discharge 09/05/24 18:59 Aerobic Culture - Preliminary Leg Left 09/05/24 19:20 Blood Culture - Preliminary Blood 09/05/24 19:20 Blood Culture - Preliminary Blood Imaging Radiologist's impression: ITS Impressions Chest X-Ray 09/05/24 17:25 IMPRESSION: No focal infiltrate or effusion.
[2024-09-08] MEDS: UMECLIDINIUM/VILANTEROL 62.5-25 MCG ELLIPTA 1 PUFF INHALATION (08:09)
[2024-09-08 08:10] VITALS: PULSE 70; RESP 20
[2024-09-08 08:27] VITALS: BP 118/64; PULSE 70
[2024-09-08] MEDS: VERAPAMIL HCL ER 240 MG TABLET.ER PO ×2 (08:28→17:40)
[2024-09-08] MEDS: FUROSEMIDE 40 MG TABLET PO (08:28)
[2024-09-08] MEDS: GABAPENTIN 300 MG CAPSULE PO (08:28)
[2024-09-08] MEDS: HYDROmorphone HCL INJ (*CRX) 2 MG/ML VIAL 1 MG IV PUSH (10:03)
--- NOTE | 2024-09-08 10:43 | PM.IMPN ---
Progress Note: A&P Assessment and Plan (1) Erythema nodosum: Code(s): L52 - Erythema nodosum Status: Acute Assessment and Plan: Previous provider Spoke to patients Head Paper Tester Dr. Marisol Sahu (office number [phone], [phone]). She reports that patient has erythema nodosum and was scheduled to come in in 5 days for lidocaine injections. Dr. Sahu reports that she follows with Dr. Jeremi López Corpsman at [facility]( [phone], option 2, then number 22). Dr. López returned my call. He stated that they tried patient on Rinvoq in the past but it did not help. Patient can be placed on steroids but may need to look at getting set up on Remicade or a TNF inhibitor. She has previously been diagnosed with erythema nodosum, likely related to her autoimmune disease. 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 Transfer has been initiated to tertiary care for dermatology consultation. No bed is yet available and she is being admitted to the floor pending bed availability. Pain regimen. Will increase gabapentin to 400 mg 3 times a day Dressing changes per wound care recommendations. Prednisone 20 mg PO daily. Increase prednisone to 40 mg daily (2) Type 2 diabetes mellitus: Code(s): E11.9 - Type 2 diabetes mellitus without complications Status: Acute Assessment and Plan: HgbA1C 8.3%. Metformin 1,000 mg PO qam and 500 mg in the evening. Accuchecks qid. Diabetic diet. (3) Chronic anticoagulation: Code(s): Z79.01 - correction (current) use of anticoagulants Status: Acute Assessment and Plan: Xarelto 20 mg PO daily. History of PE's and DVT's per patient. (4) Rheumatoid arthritis: Code(s): M06.9 - Rheumatoid arthritis, unspecified Status: Acute Assessment and Plan: Follows with Corpsman Dr. Jeremi López at [facility]. (5) Postablative hypothyroidism: Code(s): E89.0 - Postprocedural hypothyroidism Status: Acute Assessment and Plan: Levothyroxine 88 mcg PO daily. (6) Hypertension: Code(s): I10 - Essential (primary) hypertension Status: Acute Assessment and Plan: Verapamil 240 mg PO BID, Furosemide 40 mg PO daily, and Spironolactone 12.5 mg PO daily. Subjective Date/time seen: 09/08/24 10:43 Interval history: Patient continues to have pain in both legs sharp shooting fiery. Source in the legs has been ongoing for past few months. Patient is awaiting transfer to [facility] for further evaluation Review of Systems Review of Systems: All systems reviewed & are unremarkable except as noted in HPI and below Exam Narrative: General: Well-developed, nontoxic-appearing female sitting up in bed in no distress. HEENT: PERRL, EOMI. Sclera anicteric. Oral mucosa moist. Neck: Supple. Respiratory: Lungs are clear to auscultation bilaterally. Cardiovascular: Regular rate and rhythm with S1-S2. Gastrointestinal: Abdomen is soft, nontender, and nondistended with positive bowel sounds. Skin: Warm and dry. Several ulcerated lesions in varying sizes clustered around the medial and anterolateral left lower leg. The wound bases appear nodular with some erythema and scattered yellowish/green slough. There are smaller clusters over left 3rd and 4th the metatarsophalangeal joints with similar ulcerations on the right but to a lesser extent. There is a painful, tender nodule on the left lateral calf. The tissue surrounding these ulcers are erythematous and slightly warm. Extremities: No cyanosis, clubbing, or significant edema. Radial and pedal pulses are strong. Neurological: Alert. Cranial nerves grossly intact No gross focal deficits to casual conversation. Psychiatric: Pleasant and cooperative with normal mood and affect. Judgment and insight intact. Objective Data Vital Signs Vital Signs: Vital Signs - 24 hr 09/07/24 12:49 09/07/24 14:00 09/07/24 20:00 Temperature 98.2 F Pulse Rate 91 Respiratory Rate 16 Blood Pressure 127/68 Pulse Oximetry 96 100 Oxygen Delivery Room Air Room Air 09/07/24 20:51 09/07/24 21:05 09/08/24 02:43 Temperature 98.1 F Pulse Rate 94 88 Respiratory Rate 17 Blood Pressure 127/79 Pulse Oximetry 99 98 Oxygen Delivery CPAP CPAP 09/08/24 05:07 09/08/24 08:10 09/08/24 08:27 Temperature 97.9 F Pulse Rate 64 70 70 Respiratory Rate 17 20 Blood Pressure 112/68 118/64 Pulse Oximetry 98 Oxygen Delivery Intake/Output Intake/Output: Intake & Output 07/21/25 09/06/24 09/07/24 09/08/24 23:59 23:59 23:59 23:59 Intake Total 1150 1400 1280 470 Output Total 600 Balance 1150 1400 1280 -130 Meds/Results Medications: Active Medications Generic Name Dose Route Start Last Admin Trade Name Freq PRN Reason Stop Dose Admin Acetaminophen 1,000 mg 09/06/24 14:15 Acetaminophen 500 Mg Tablet PO Q6H PRN Pain Rated 5 or Less Albuterol 2 puff 09/07/24 07:33 Albuterol Sulfate (*Sp) Aerosol 1 Puff INHALATION Q4-6H PRN shortness of breath or wheezing Dextrose 12.5 gm 09/06/24 22:43 Dextrose 50% 25 Gm/50 Ml Syringe IV PUSH PRN PRN Hypoglycemia Protocol Docusate Sodium 100 mg 09/07/24 11:54 Docusate Sodium 100 Mg Capsule PO Q12H PRN Constipation Furosemide 40 mg 09/06/24 09:00 09/08/24 08:28 Furosemide 40 Mg Tablet PO 40 mg QAM ANDRES Administration Gabapentin 300 mg 09/06/24 09:00 09/08/24 08:28 Gabapentin 300 Mg Capsule PO 300 mg TID ANDRES Administration Glucagon 1 mg 09/06/24 22:43 Glucagon For Inj 1 Mg Vial IM PRN PRN Hypoglycemia Protocol Glucose 15 gm 09/06/24 22:43 Glucose Oral Gel 15 Gm Of Glucse In 37.5 Gm Tube PO PRN PRN Hypoglycemia Protocol Hydromorphone HCl 1 mg 09/06/24 14:15 09/08/24 10:03 Hydromorphone Hcl Inj (*Crx) 2 Mg/Ml Vial IV PUSH 1 mg Q2H PRN Administration Pain Rated 7-10 Dextrose 1,000 mls @ 100 mls/hr 09/06/24 22:43 Dextrose 5% 1,000 Ml IVPB PRN PRN Hypoglycemia Protocol Insulin Aspart 3 - 6 units 09/07/24 08:00 09/08/24 07:55 Insulin Aspart (*Bkc) 100 Units/Ml SUB-Q Not Given TIDWM [facility] Protocol Insulin Aspart 1 - 3 units 09/07/24 21:00 09/07/24 21:17 Insulin Aspart (*Bkc) 100 Units/Ml SUB-Q Not Given HS [facility] Protocol Levothyroxine Sodium 88 mcg 09/07/24 06:30 09/08/24 06:03 Levothyroxine Sodium 88 Mcg Tablet PO 88 mcg DAILY@0630 ANDRES Administration Metformin HCl 1,000 mg 09/07/24 08:00 09/08/24 08:28 Metformin Hcl 500 Mg Tablet PO 1,000 mg DAILY@0800 [facility] Administration Metformin HCl 500 mg 09/06/24 17:00 09/07/24 18:08 Metformin Hcl 500 Mg Tablet PO 500 mg DAILY@1700 [facility] Administration Non-Formulary 1 each 09/07/24 21:00 09/07/24 20:26 Gemtesa (Vibegron 75 PO 10/07/24 20:59 1 each Mg Oral Tablet) HS [facility] Administration Ondansetron HCl 4 mg 09/06/24 17:47 Ondansetron Inj 4 Mg/2 Ml Vial IV PUSH Q4H PRN Nausea Pantoprazole Sodium 40 mg 09/07/24 21:00 09/07/24 20:25 Pantoprazole 40 Mg Tablet PO 40 mg QHS [facility] Administration Polyethylene Glycol 17 gm 09/07/24 11:55 09/08/24 08:29 Polyethylene Glycol 3350 17 Gm Powd.Pack PO Not Given QAM [facility] Prednisone 20 mg 09/08/24 08:00 09/08/24 08:28 Prednisone 20 Mg Tablet PO 09/12/24 07:59 20 mg DAILY@0800 [facility] Administration Rivaroxaban 20 mg 09/06/24 17:00 09/07/24 18:06 Rivaroxaban 20 Mg Tablet PO 20 mg DAILY@1700 [facility] Administration Spironolactone 12.5 mg 09/08/24 09:00 09/08/24 08:28 Spironolactone 12.5 Mg Tablet PO 12.5 mg DAILY [facility] Administration Umeclidinium/Vilanterol 1 puff 09/07/24 08:00 09/08/24 08:09 Umeclidinium/Vilanterol 62.5-25 Mcg Ellipta INHALATION 1 puff DAILYRT [facility] Administration Verapamil HCl 240 mg 09/07/24 08:00 09/08/24 08:28 Verapamil Hcl Er 240 Mg Tablet.Er PO 240 mg DAILY@0800 [facility] Administration Verapamil HCl 240 mg 09/06/24 18:00 09/07/24 18:09 Verapamil Hcl Er 240 Mg Tablet.Er PO 240 mg EVENING [facility] Administration Radiology Results: ITS Impressions Chest X-Ray 09/05/24 17:25 IMPRESSION: No focal infiltrate or effusion. Labs Labs: Laboratory Results - last 24 hr 09/07/24 09/07/24 09/07/24 11:46 17:15 20:47 WBC RBC Hgb Hct MCV MCH MCHC RDW Plt Count MPV Immature Gran % (Auto) Neut % (Auto) Lymph % (Auto) [place] % (Auto) Eos % (Auto) Baso % (Auto) Lymph # (Auto) [place] # (Auto) Eos # (Auto) Baso # (Auto) Abs Immat Gran (auto) Absolute Neuts (auto) Absolute Nucleated RBC Nucleated RBC % Sodium Potassium Chloride Carbon Dioxide Anion Gap BUN Creatinine Estim Creat Clear Calc Estimated GFR Glucose POC Capillary Glucose 139 H 113 H 130 H Calcium Magnesium Total Bilirubin AST ALT Alkaline Phosphatase Total Protein Albumin 09/08/24 09/08/24 04:57 07:43 WBC 15.0 H RBC 4.35 Hgb 11.8 L Hct 37.4 MCV 86.0 MCH 27.1 MCHC 31.6 L RDW 13.3 Plt Count 368 MPV 8.9 Immature Gran % (Auto) 1.7 H Neut % (Auto) 84.6 H Lymph % (Auto) 10.6 L Monroe % (Auto) 2.7 Eos % (Auto) 0.1 Baso % (Auto) 0.3 Lymph # (Auto) 1.59 Monroe # (Auto) 0.4 Eos # (Auto) 0.0 Baso # (Auto) 0.1 Abs Immat Gran (auto) 0.26 H Absolute Neuts (auto) 12.7 H Absolute Nucleated RBC 0.000 Nucleated RBC % 0.0 Sodium 131 L Potassium 4.3 Chloride 99 Carbon Dioxide 24 Anion Gap 8 BUN 12 Creatinine 0.77 Estim Creat Clear Calc 85 Estimated GFR > 60 Glucose 188 H POC Capillary Glucose 151 H Calcium 9.1 Magnesium 2.0 Total Bilirubin 0.7 AST 40 H ALT 32 Alkaline Phosphatase 85 Total Protein 7.4 Albumin 3.7
[2024-09-08] MEDS: INSULIN ASPART (*BKC) 100 UNITS/ML SUB-Q ×3 (12:04→21:12)
[2024-09-08] MEDS: GABAPENTIN 400 MG CAPSULE PO ×2 (12:05→16:50)
[2024-09-08 14:00] VITALS: BP 118/69; PULSE 69; RESP 14; TEMP 36.9; O2SAT 96
[2024-09-08] MEDS: RIVAROXABAN 20 MG TABLET PO (16:49)
[2024-09-08] MEDS: HYDROcodone/acetaminophen (*CRX) 5-325 MG TABLET 1 TAB PO ×2 (16:50→21:11)
[2024-09-08] MEDS: GEMTESA 1 EACH PO (18:48)
[2024-09-08 19:55] VITALS: BP 133/73; PULSE 80; RESP 18; TEMP 36.6; O2SAT 97
[2024-09-08] MEDS: FAMOTIDINE 20 MG TABLET PO (21:11)
[2024-09-08] MEDS: PANTOPRAZOLE 40 MG TABLET PO (21:12)
== END 2024-09-08 21:15 | disposition short-term general hospital (02) | DRG 603 ==
LOC: ANHED 09-06 17:52 → ANH2MED 09-06 18:38
PROVIDERS: Nurse Practitioner Family; Physician Assistant; Admitting Provider Family Medicine; Emergency Provider Student in an Organized Health Care Education/Training Program; Visit Provider Internal Medicine
DX: L88 Pyoderma gangrenosum (principal); L97.929 Non-pressure chronic ulcer of unspecified part of left lower leg with unspecified severity; L97.919 Non-pressure chronic ulcer of unspecified part of right lower leg with unspecified severity; L03.116 Cellulitis of left lower limb; M06.9 Rheumatoid arthritis, unspecified; E89.0 Postprocedural hypothyroidism; I10 Essential (primary) hypertension; E11.9 Type 2 diabetes mellitus without complications; L52 Erythema nodosum; M15.9 Polyosteoarthritis, unspecified; K21.9 Gastro-esophageal reflux disease without esophagitis; G47.33 Obstructive sleep apnea (adult) (pediatric); Z79.01 Long term (current) use of anticoagulants; Z86.711 Personal history of pulmonary embolism; Z90.49 Acquired absence of other specified parts of digestive tract
CPT/HCPCS: 36415; 71046; 80048; 80053; 80202; 82565; 82948; 83036; 83605; 83690; 83735; 84443; 84484; 85025; 85027; 85610; 85652; 85730; 86140; 87040; 87070; 87075; 87205; 93005; 94640; 96365; 96366; 96367; 96375; 96376; 99285; A9270; G0378; J0692; J1171; J1200; J1815; J1836; J3373; J7030; J7512